=== PATIENT | male | born 1955 | race Caucasian/White ===

== ENCOUNTER → 2017-01-01 | Outpatient (CLI) | payer BC | LOC: LABWHC1 15:10 | PROVIDERS: ATTEND Internal Medicine Nephrology | DX: Z48.298 Encounter for aftercare following other organ transplant (principal); Z94.9 Transplanted organ and tissue status, unspecified; Z79.899 Other long term (current) drug therapy | CPT/HCPCS: 36415 ==

== ENCOUNTER → 2017-03-31 | Outpatient (CLI) | payer BC ==
[2017-03-31 09:35] LABS: Basophils % (A) 0 %; CH 30.5; CHCM 33.8; Eosinophils # (A) 0.2 k/uL (0-0.7); Eosinophils % (A) 2 %; HCT 43.9 % (39.0-53.0); HDW 2.66; HGB 14.7 gm/dL (13.0-17.5); Luc # (Auto) 0.23; Luc % (Auto) 3; Lymphocytes # (A) 2.5 k/uL (1.0-4.8); Lymphocytes % (A) 33 %; MCH 30.3 pg (25.0-35.0); MCHC 33.4 g/dL (31.0-37.0); MCV 90.6 fL (80.0-100.0); Mean Platelet Volume 7.7; Monocytes # (A) 0.6 k/uL (0-1.0); Monocytes % (A) 8 %; Neutrophils % (A) 54 %; RBC 4.85 m/uL (4.30-5.90); RDW 13.7 % (11.5-15.5); WBC 7.5 k/uL (3.8-10.6); WBC (Perox) 7.37
[2017-03-31 10:22] LABS: ALT 32 U/L (21-72); AST 19 U/L (17-59); Alkaline Phosphatase 79 U/L (38-126); Anion Gap 12 mmol/L; Blood Urea Nitrogen 27 mg/dL (9-20); Calcium 10.5 mg/dL (8.4-10.2); Carbon Dioxide 22 mmol/L (22-30); Chloride 106 mmol/L (98-107); Cholesterol 179 mg/dL (<200); Glucose 209 mg/dL (74-99); HDL Cholesterol 42 mg/dL (40-60); Non-African American GFR(MDRD) >60 (>60 ml/min/1.73 sqM); Potassium 4.2 mmol/L (3.5-5.1); Sodium 140 mmol/L (137-145); Total Bilirubin 0.7 mg/dL (0.2-1.3); Total Protein 6.6 g/dL (6.3-8.2); Triglycerides 394 mg/dL (<150)
[2017-03-31 11:23] LABS: Hemoglobin A1C 7.9 % (4.2-6.1)
== END | disposition home or self-care (01) ==
LOC: LABWHC1 09:05
PROVIDERS: ATTEND Internal Medicine Geriatric Medicine
DX: E11.9 Type 2 diabetes mellitus without complications (principal)
CPT/HCPCS: 36415; 80053; 80061; 80197; 83036; 85025

== ENCOUNTER → 2017-06-02 | Outpatient (CLI) | payer BC ==
[2017-06-02 09:17] LABS: Basophils % (A) 0 %; CHCM 33.4; Eosinophils # (A) 0.1 k/uL (0-0.7); Eosinophils % (A) 2 %; HCT 43.1 % (39.0-53.0); HDW 2.65; HGB 14.3 gm/dL (13.0-17.5); Luc # (Auto) 0.24; Luc % (Auto) 4; Lymphocytes # (A) 2.1 k/uL (1.0-4.8); Lymphocytes % (A) 32 %; MCHC 33.3 g/dL (31.0-37.0); MCV 93.3 fL (80.0-100.0); Mean Platelet Volume 8.5; Monocytes # (A) 0.6 k/uL (0-1.0); Monocytes % (A) 9 %; Neutrophils # (A) 3.6 k/uL (1.3-7.7); Neutrophils % (A) 53 %; RBC 4.62 m/uL (4.30-5.90); RDW 14.4 % (11.5-15.5); WBC 6.7 k/uL (3.8-10.6); WBC (Perox) 6.85
[2017-06-02 09:39] LABS: ALT 31 U/L (21-72); AST 17 U/L (17-59); Alkaline Phosphatase 69 U/L (38-126); Anion Gap 9 mmol/L; Blood Urea Nitrogen 25 mg/dL (9-20); Calcium 9.9 mg/dL (8.4-10.2); Carbon Dioxide 24 mmol/L (22-30); Chloride 106 mmol/L (98-107); Cholesterol 153 mg/dL (<200); Glucose 225 mg/dL (74-99); HDL Cholesterol 36 mg/dL (40-60); Non-African American GFR(MDRD) >60 (>60 ml/min/1.73 sqM); Potassium 4.4 mmol/L (3.5-5.1); Sodium 139 mmol/L (137-145); Total Bilirubin 0.5 mg/dL (0.2-1.3); Total Protein 6.2 g/dL (6.3-8.2)
[2017-06-02 12:20] LABS: Hemoglobin A1C 8.3 % (4.2-6.1)
== END | disposition home or self-care (01) ==
LOC: LABWHC1 08:49
PROVIDERS: ATTEND Internal Medicine Geriatric Medicine
DX: E11.9 Type 2 diabetes mellitus without complications (principal); I10 Essential (primary) hypertension; E78.00 Pure hypercholesterolemia, unspecified
CPT/HCPCS: 36415; 80053; 80061; 83036; 84439; 84443; 85025

== ENCOUNTER → 2017-12-30 | Outpatient (CLI) | payer BC ==
[2017-12-30 11:58] LABS: Basophils % (A) 0 %; Eosinophils # (A) 0.1 k/uL (0-0.7); Eosinophils % (A) 1 %; HCT 40.4 % (39.0-53.0); HGB 13.1 gm/dL (13.0-17.5); Lymphocytes # (A) 1.9 k/uL (1.0-4.8); Lymphocytes % (A) 22 %; MCH 29.1 pg (25.0-35.0); MCHC 32.5 g/dL (31.0-37.0); MCV 89.4 fL (80.0-100.0); Mean Platelet Volume 7.7; Monocytes # (A) 0.6 k/uL (0-1.0); Monocytes % (A) 7 %; Neutrophils # (A) 5.6 k/uL (1.3-7.7); Neutrophils % (A) 67 %; Platelet Count 184 k/uL (150-450); RBC 4.52 m/uL (4.30-5.90); RDW 13.8 % (11.5-15.5); WBC 8.3 k/uL (3.8-10.6)
[2017-12-30 12:19] LABS: Albumin 3.8 g/dL (3.5-5.0); Calcium 10.8 mg/dL (8.4-10.2); Potassium 4.8 mmol/L (3.5-5.1); Total Bilirubin 0.5 mg/dL (0.2-1.3); Total Protein 6.3 g/dL (6.3-8.2)
[2017-12-30 12:27] LABS: T4, Free (Free Thyroxine) 1.02 ng/dL (0.78-2.19)
[2017-12-30 12:41] LABS: Prostate Specific Antigen 0.4 ng/mL (0.00-4.00)
[2017-12-30 18:48] LABS: Hemoglobin A1C 7.8 % (4.0-6.0)
== END | disposition home or self-care (01) ==
LOC: LABWHC1 11:31
PROVIDERS: ATTEND Internal Medicine Geriatric Medicine
DX: I10 Essential (primary) hypertension (principal); E11.9 Type 2 diabetes mellitus without complications; E78.00 Pure hypercholesterolemia, unspecified; Z12.5 Encounter for screening for malignant neoplasm of prostate
CPT/HCPCS: 36415; 80053; 80061; 82043; 82570; 83036; 84153; 84439; 84443; 85025

== ENCOUNTER → 2018-05-02 | Outpatient (CLI) | payer BC ==
[2018-05-02 15:41] LABS: Basophils % (A) 0 %; Eosinophils # (A) 0.1 k/uL (0-0.7); Eosinophils % (A) 2 %; HCT 39.5 % (39.0-53.0); HGB 12.6 gm/dL (13.0-17.5); Lymphocytes # (A) 2.2 k/uL (1.0-4.8); Lymphocytes % (A) 29 %; MCH 28.5 pg (25.0-35.0); MCV 89.1 fL (80.0-100.0); Mean Platelet Volume 7.7; Monocytes # (A) 0.6 k/uL (0-1.0); Monocytes % (A) 8 %; Neutrophils # (A) 4.2 k/uL (1.3-7.7); Neutrophils % (A) 58 %; Platelet Count 170 k/uL (150-450); RBC 4.43 m/uL (4.30-5.90); RDW 13.4 % (11.5-15.5); WBC 7.3 k/uL (3.8-10.6)
[2018-05-02 15:50] LABS: Calcium 10.5 mg/dL (8.4-10.2); Potassium 4.5 mmol/L (3.5-5.1); Total Bilirubin 0.4 mg/dL (0.2-1.3); Total Protein 6.3 g/dL (6.3-8.2)
[2018-05-02 16:06] LABS: T4, Free (Free Thyroxine) 1.01 ng/dL (0.78-2.19)
[2018-05-02 17:36] LABS: Prostate Specific Antigen 0.4 ng/mL (0.00-4.00)
[2018-05-03 04:28] LABS: Hemoglobin A1C 7.5 % (4.0-6.0)
== END | disposition home or self-care (01) ==
LOC: LABWHC1 14:42
PROVIDERS: ATTEND Internal Medicine Geriatric Medicine
DX: E11.22 Type 2 diabetes mellitus with diabetic chronic kidney disease (principal); N18.9 Chronic kidney disease, unspecified; I25.10 Atherosclerotic heart disease of native coronary artery without angina pectoris; N40.0 Benign prostatic hyperplasia without lower urinary tract symptoms
CPT/HCPCS: 36415; 80053; 83036; 84153; 84439; 84443; 85025

== ENCOUNTER → 2018-08-15 | Outpatient (CLI) | payer BC ==
[2018-08-15 16:12] LABS: Appearance,Urine Clear (Clear); Basophils % (A) 0 %; Bilirubin,Urine Negative (Negative); Blood,Urine Negative (Negative); Color,Urine Yellow; Eosinophils # (A) 0.2 k/uL (0-0.7); Eosinophils % (A) 2 %; Glucose,Urine (UA) 2+ (Negative); HCT 41.4 % (39.0-53.0); HGB 13.3 gm/dL (13.0-17.5); Ketones,Urine Negative (Negative); Leukocyte Esterase,Urine Negative (Negative); Lymphocytes % (A) 27 %; MCH 29.2 pg (25.0-35.0); MCHC 32.2 g/dL (31.0-37.0); MCV 90.6 fL (80.0-100.0); Mean Platelet Volume 7.6; Monocytes # (A) 0.6 k/uL (0-1.0); Monocytes % (A) 8 %; Neutrophils # (A) 4.3 k/uL (1.3-7.7); Neutrophils % (A) 59 %; Nitrite,Urine Negative (Negative); PH, Urine 5.5 (5.0-8.0); Platelet Count 213 k/uL (150-450); Protein,Urine Negative (Negative); RBC 4.57 m/uL (4.30-5.90); RDW 13.4 % (11.5-15.5); Specific Gravity,Urine 1.019 (1.001-1.035); Urobilinogen,Urine <2.0 mg/dL (<2.0); WBC 7.2 k/uL (3.8-10.6)
[2018-08-16 05:21] LABS: Total Protein,Urine Random 15.7 mg/dL (0.0-13.5)
[2018-08-16 08:24] LABS: Vitamin D 25 Hydroxy 18.7 ng/mL (30.0-100.0)
[2018-08-16 08:25] LABS: Albumin 4.1 g/dL (3.80-4.90); Albumin/Globulin Ratio 2.56 (1.20-2.10); Anion Gap 6.4 mmol/L (4.00-12.00); Carbon Dioxide 23.6 mmol/L (21.6-31.8); Creatinine,Urine Random 166.3 mg/dL; Globulin 1.6 g/dL (2.1-3.7); LDL Cholesterol,Calculated 49.6 mg/dL (0.0-131.0); Magnesium 1.7 mg/dL (1.5-2.4); Parathyroid Hormone Intact 75.6 pg/mL (14.0-72.0); Phosphorus 2.4 mg/dL (2.4-5.1); Potassium 4.9 mmol/L (3.5-5.5); Total Bilirubin 0.4 mg/dL (0.3-1.2); Total Protein 5.7 g/dL (6.2-8.2); VLDL Calculation 52.4 mg/dL (5.00-40.00)
== END | disposition home or self-care (01) ==
LOC: LABWHC1 14:51
PROVIDERS: ATTEND Nurse Practitioner
DX: Z51.81 Encounter for therapeutic drug level monitoring (principal); Z79.899 Other long term (current) drug therapy; Z94.0 Kidney transplant status; Z48.298 Encounter for aftercare following other organ transplant
CPT/HCPCS: 36415; 80053; 80061; 80197; 81003; 82306; 82570; 82977; 83735; 83970; 84100; 84156; 84550; 85025

== ENCOUNTER → 2019-01-03 | Outpatient (CLI) | payer OTHER ==
[2019-01-03 15:24] LABS: Basophils % (A) 0 %; Eosinophils # (A) 0.2 k/uL (0-0.7); Eosinophils % (A) 2 %; HCT 41.4 % (39.0-53.0); HGB 13.1 gm/dL (13.0-17.5); Lymphocytes # (A) 2.1 k/uL (1.0-4.8); Lymphocytes % (A) 29 %; MCH 28.4 pg (25.0-35.0); MCHC 31.7 g/dL (31.0-37.0); MCV 89.6 fL (80.0-100.0); Mean Platelet Volume 7.5; Monocytes # (A) 0.6 k/uL (0-1.0); Monocytes % (A) 8 %; Neutrophils # (A) 4.2 k/uL (1.3-7.7); Neutrophils % (A) 57 %; Platelet Count 201 k/uL (150-450); RBC 4.62 m/uL (4.30-5.90); RDW 13.8 % (11.5-15.5); WBC 7.3 k/uL (3.8-10.6)
[2019-01-03 19:32] LABS: Albumin 4.2 g/dL (3.80-4.90); Albumin/Globulin Ratio 2.47 (1.60-3.17); Calcium 10.4 mg/dL (8.7-10.3); Globulin 1.7 g/dL (1.6-3.3); Potassium 4.4 mmol/L (3.5-5.5); Total Bilirubin 0.5 mg/dL (0.3-1.2); Total Protein 5.9 g/dL (6.2-8.2)
[2019-01-03 19:39] LABS: T4, Free (Free Thyroxine) 1.1 ng/dL (0.80-1.80)
== END ==
LOC: LABWHC1 14:18
PROVIDERS: ATTEND Nurse Practitioner
DX: Z00.00 Encounter for general adult medical examination without abnormal findings (principal); I10 Essential (primary) hypertension; E11.42 Type 2 diabetes mellitus with diabetic polyneuropathy; E03.9 Hypothyroidism, unspecified; I15.9 Secondary hypertension, unspecified; Z79.899 Other long term (current) drug therapy; Z94.0 Kidney transplant status
CPT/HCPCS: 36415; 80053; 82043; 82088; 82570; 83036; 84244; 84439; 84443; 85025

== ENCOUNTER → 2019-01-06 | Outpatient (CLI) | payer OTHER ==
--- NOTE | 2019-01-09 09:05 | BD ---
EXAMINATION TYPE: Axial Bone Density DATE OF EXAM: 01/06/2019 COMPARISON: 10/25/2015 CLINICAL HISTORY: Long-term immunosuppressive drug use Height: 67.7 IN Weight: 210 LBS FRAX RISK QUESTIONS: Glucocorticoids (More than 3mos): PREDNISONE SINCE JUL 15, 2013. PT TAKES O.5 MG/PER DAY (Ex: prednisone, prednisolone, methylprednisolone, dexamethasone, and hydrocortisone). Secondary Osteoporosis: 1. Type 1 Diabetes: YES Current Tobacco Use: OCCASIONAL RISK FACTORS HISTORY OF: Active: YES Diet low in dairy products/other sources of calcium: YES MEDICATIONS: Prednisone or other steroids: YES 0.5 MG PER DAY SINCE JUL 2013 Additional Medications: PREDNISONE, MENS 50 +VIT,HIGH BLOOD PRESSURE MEDS, INSULIN, CHOLESTEROL MEDS, PLAVIX, FLOMAX, ANTI REJECTION MEDS EXAM MEASUREMENTS: Bone mineral densitometry was performed using the [employer]. Bone mineral density as measured about the Lumbar spine is: ----- L1-L4(G/cm2): 1.334 T Score Values are as follows: ----- L2: 1.7 ----- L3: 1.9 ----- L4: 0.0 ----- L1-L4: 1.3 Bone mineral density has: Increased 11.3% since study of: 10/25/2015 Bone mineral density about the R hip (g/cm2): 0.835 Bone mineral density about the L hip (g/cm2): 0.914 T Score values are as follows: -----R Neck: -1.5 -----L Neck: -0.9 -----R Total: -0.7 -----L Total: -0.3 Bone mineral density has: Decreased -4.8% since study of: 10/25/2015 IMPRESSION: Osteopenia (T Score between -2.5 and -1). There is slightly increased risk of fracture and the patient may be considered for treatment. Re-Screen 2-5 years. NOTE: T-SCORE=SD OF THE YOUNG ADULT MEAN.
== END ==
LOC: RADBDWWP 12:49
PROVIDERS: ATTEND Nurse Practitioner
DX: Z48.22 Encounter for aftercare following kidney transplant (principal); M85.80 Other specified disorders of bone density and structure, unspecified site; Z94.0 Kidney transplant status; Z79.899 Other long term (current) drug therapy
CPT/HCPCS: 77080

== ENCOUNTER → 2019-05-01 | Outpatient (CLI) | payer OTHER ==
[2019-05-01 19:09] LABS: African American GFR (CKD) 67.8 (60.0-200.0); Albumin/Globulin Ratio 2.5 (1.60-3.17); Anion Gap 7.7 mmol/L (4.00-12.00); BUN/Creat Ratio 22.31 Ratio (12.00-20.00); Calcium 10.4 mg/dL (8.7-10.3); Carbon Dioxide 21.3 mmol/L (21.6-31.8); Globulin 1.6 g/dL (1.6-3.3); LDL Cholesterol,Calculated 28.8 mg/dL (0.0-131.0); Potassium 4.3 mmol/L (3.5-5.5); Total Bilirubin 0.4 mg/dL (0.2-1.2); Total Protein 5.6 g/dL (6.2-8.2); VLDL Calculation 68.2 mg/dL (5.00-40.00)
[2019-05-01 19:17] LABS: T4, Free (Free Thyroxine) 1.1 ng/dL (0.80-1.80)
[2019-05-01 22:37] LABS: Hemoglobin A1C 7.2 % (4.0-6.0)
== END | disposition home or self-care (01) ==
LOC: LABWHC1 13:49
PROVIDERS: ATTEND Internal Medicine
DX: E11.65 Type 2 diabetes mellitus with hyperglycemia (principal); E78.2 Mixed hyperlipidemia
CPT/HCPCS: 36415; 80053; 80061; 82043; 82570; 83036; 84439; 84443

== ENCOUNTER 2019-07-11 20:19 | Observation (INO) | payer OTHER ==
[2019-07-11] MEDS ORDERED: SODIUM CHLORIDE 0.9% 500 ML 500 ML IV STA (20:43)
[2019-07-11 20:57] LABS: Glucose,Whole Blood 162 mg/dL (75-99)
[2019-07-11 21:06] LABS: Basophils % (A) 0 %; Eosinophils # (A) 0.1 k/uL (0-0.7); Eosinophils % (A) 1 %; HCT 40.7 % (39.0-53.0); HGB 13.1 gm/dL (13.0-17.5); Lymphocytes # (A) 2.4 k/uL (1.0-4.8); Lymphocytes % (A) 29 %; MCH 29.8 pg (25.0-35.0); MCHC 32.1 g/dL (31.0-37.0); MCV 92.6 fL (80.0-100.0); Mean Platelet Volume 6.7; Monocytes # (A) 0.6 k/uL (0-1.0); Monocytes % (A) 7 %; Neutrophils % (A) 60 %; Platelet Count 201 k/uL (150-450); RBC 4.39 m/uL (4.30-5.90); RDW 13.4 % (11.5-15.5); WBC 8.4 k/uL (3.8-10.6)
[2019-07-11 21:12] LABS: Albumin 4.3 g/dL (3.5-5.0); Calcium 10.7 mg/dL (8.4-10.2); Potassium 4.7 mmol/L (3.5-5.1); Total Bilirubin 0.4 mg/dL (0.2-1.3); Total Protein 6.9 g/dL (6.3-8.2)
--- NOTE | 2019-07-11 21:15 | CT ---
EXAMINATION TYPE: CT brain wo con for TPA DATE OF EXAM: 07/11/2019 COMPARISON: 01/08/2016 HISTORY: Neuro deficits. CT DLP: 1212.4 mGycm Automated exposure control for dose reduction was used. FINDINGS: There is hypodensity in the lateral right temporal lobe consistent with old infarct. There is no mass effect nor midline shift. There is no sign of intracranial hemorrhage. The calvarium is intact. 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 No acute intracranial abnormality. No change.
--- NOTE | 2019-07-11 21:16 | ED ---
Weakness HPI - General Chief complaint: Weakness Stated complaint: right side weakness/trouble standing Time Seen by Provider: 07/11/19 20:43 Source: patient, RN notes reviewed Mode of arrival: ambulatory Limitations: no limitations - History of Present Illness Initial comments: This is a 63-year-old male history of renal transplant who states he had the onset around 745 bpm of right upper and lower extremity weakness. He also thinks he has some difficulty with speech. He does feel as if it's gaping improved he has no prior history of strokes no palpitations chest pain headache fevers chills nausea vomiting sweats or other symptoms he states he was having drink when this occurred. He states he does feel as if his hearing better now. He knows he is dominant right-handed and he had trouble keeping his hand up on a counter. No other modifying factors at this time MD Complaint: focal weakness - Related Data Home Medications Medication Instructions Recorded Confirmed Allopurinol [Zyloprim] 100 mg PO DAILY 07/11/19 07/11/19 Atorvastatin [Lipitor] 40 mg PO DAILY 07/11/19 07/11/19 Clopidogrel [Plavix] 75 mg PO DAILY 07/11/19 07/11/19 INSULIN LISPRO (HumaLOG) [HumaLOG] 20 unit SQ AC-BID 07/11/19 07/11/19 INSULIN LISPRO (HumaLOG) [HumaLOG] 25 unit SQ AC-SUPPER 07/11/19 07/11/19 INSULIN LISPRO (HumaLOG) [HumaLOG] See Protocol SQ AC-TID 07/11/19 07/11/19 Lisinopril [Zestril] 10 mg PO DAILY 07/11/19 07/11/19 Metoprolol Tartrate [Lopressor] 50 mg PO TID 07/11/19 07/11/19 Mycophenolate Sodium [Mycophenolic 720 mg PO BID 07/11/19 07/11/19 Acid] Paricalcitol 1 mcg PO DAILY 07/11/19 07/11/19 Pioglitazone HCl 15 mg PO DAILY 07/11/19 07/11/19 Tacrolimus [Prograf] 1 mg PO HS 07/11/19 07/11/19 Tacrolimus [Prograf] 2 mg PO QAM 07/11/19 07/11/19 Tamsulosin HCl [Flomax] 0.4 mg PO DAILY 07/11/19 07/11/19 amLODIPine BESYLATE 10 mg PO DAILY 07/11/19 07/11/19 hydrALAZINE HCL [Apresoline] 50 mg PO BID 07/11/19 07/11/19 metFORMIN HCL ER [Glucophage Xr] 500 mg PO DAILY 07/11/19 07/11/19 predniSONE 5 mg PO DAILY 07/11/19 07/11/19 Allergies Allergy/AdvReac Type Severity Reaction Status Date / Time No Known Allergies Allergy Verified 07/11/19 21:37 Review of Systems ROS Statement: Those systems with pertinent positive or pertinent negative responses have been documented in the HPI. ROS Other: All systems not noted in ROS Statement are negative. Past Medical History Past Medical History: CVA/TIA, Diabetes Mellitus, Hyperlipidemia, Hypertension Additional Past Medical History / Comment(s): kidney transplant History of Any Multi-Drug Resistant Organisms: None Reported Additional Past Surgical History / Comment(s): kidney transplant Past Psychological History: No Psychological Hx Reported Smoking Status: Current some day smoker Past Alcohol Use History: Occasional Past Drug Use History: None Reported General Exam - General Exam Comments Initial Comments: Is a well-developed well-nourished awake alert oriented 3 male Limitations: no limitations General appearance: alert, anxious Head exam: Present: atraumatic, normocephalic, normal inspection Eye exam: Present: normal appearance, PERRL, EOMI. Absent: scleral icterus, conjunctival injection, periorbital swelling ENT exam: Present: normal exam, mucous membranes moist Neck exam: Present: normal inspection. Absent: tenderness, meningismus, ly mphadenopathy Respiratory exam: Present: normal lung sounds bilaterally. Absent: respiratory distress, wheezes, rales, rhonchi, stridor Cardiovascular Exam: Present: regular rate, normal rhythm, normal heart sounds. Absent: systolic murmur, diastolic murmur, rubs, gallop, clicks GI/Abdominal exam: Present: soft, normal bowel sounds. Absent: distended, tenderness, guarding, rebound, rigid Extremities exam: Present: normal inspection, full ROM, normal capillary refill. Absent: tenderness, pedal edema, joint swelling, calf tenderness Back exam: Present: normal inspection Neurological exam: Present: alert, oriented X3, CN II-XII intact, motor sensory deficit (Slight weakness to imcu nurse and push pull the upper extremity and a right he was noted be able ambulate in my presence) Psychiatric exam: Present: normal affect, normal mood Skin exam: Present: warm, dry, intact, normal color. Absent: rash Course Vital Signs 07/11/19 07/11/19 20:27 22:35 Temperature 98.0 F Pulse Rate 70 68 Respiratory 20 18 Rate Blood Pressure 150/69 170/81 O2 Sat by Pulse 95 98 Oximetry - Reevaluation(s) Reevaluation #1: 07/11/19 21:16 During my exam the patient did voice that he felt as if the symptoms are all improving. He has more movement and strength and did upon initial onset. Reevaluation #2: 07/11/19 21:17 I did discuss with the patient the concept of IV contrast he would prefer not to do that in light of the fact that he is a kidney transplant recipient. EKG Findings - EKG Results: EKG: interpreted by LIBAN, sinus rhythm (Sinus rhythm a 66. Interval 140 QRS duration 94 QT since QTC 376/394 LVH) Medical Decision Making - Medical Decision Making I did reevaluate patient on several occasions he got: Improvement in his findings. The presentation is consistent with a TIA. I did discuss findings the patient's was present. I also discussed case with Dr. Finley. Patient be admitted consultation by neurology echocardiogram carotid duplex scan. Patient does demonstrate elevated kidney function tests contrast will be withheld at this time - Lab Data Result diagrams: 07/11/19 20:54 07/11/19 20:54 Lab Results 07/11/19 07/11/19 07/11/19 Range/Units 20:53 20:54 20:54 WBC 8.4 (3.8-10.6) k/uL RBC 4.39 (4.30-5.90) m/uL Hgb 13.1 (13.0-17.5) gm/dL Hct 40.7 (39.0-53.0) % MCV 92.6 (80.0-100.0) fL MCH 29.8 (25.0-35.0) pg MCHC 32.1 (31.0-37.0) g/dL RDW 13.4 (11.5-15.5) % Plt Count 201 (150-450) k/uL Neutrophils % 60 % Lymphocytes % 29 % Monocytes % 7 % Eosinophils % 1 % Basophils % 0 % Neutrophils # 5.0 (1.3-7.7) k/uL Lymphocytes # 2.4 (1.0-4.8) k/uL Monocytes # 0.6 (0-1.0) k/uL Eosinophils # 0.1 (0-0.7) k/uL Basophils # 0.0 (0-0.2) k/uL PT (9.0-12.0) sec INR (<1.2) APTT (22.0-30.0) sec Sodium 136 L (137-145) mmol/L Potassium 4.7 (3.5-5.1) mmol/L Chloride 105 (98-107) mmol/L Carbon Dioxide 19 L (22-30) mmol/L Anion Gap 12 mmol/L BUN 32 H (9-20) mg/dL Creatinine 1.43 H (0.66-1.25) mg/dL Est GFR (CKD-EPI)AfAm 61 (>60 ml/min/1.73 sqM) Est GFR (CKD-EPI)NonAf 52 (>60 ml/min/1.73 sqM) Glucose 155 H (74-99) mg/dL POC Glucose (mg/dL) 162 H (75-99) mg/dL POC Glu V[employer] T[employer] Machine Offbearer ID Paul, Radha Calcium 10.7 H (8.4-10.2) mg/dL Total Bilirubin 0.4 (0.2-1.3) mg/dL AST 17 (17-59) U/L ALT 29 (21-72) U/L Alkaline Phosphatase 56 (38-126) U/L Creatine Kinase 77 (55-170) U/L Troponin I (0.000-0.034) ng/mL Total Protein 6.9 (6.3-8.2) g/dL Albumin 4.3 (3.5-5.0) g/dL 07/11/19 07/11/19 Range/Units 20:54 20:54 WBC (3.8-10.6) k/uL RBC (4.30-5.90) m/uL Hgb (13.0-17.5) gm/dL Hct (39.0-53.0) % MCV (80.0-100.0) fL MCH (25.0-35.0) pg MCHC (31.0-37.0) g/dL RDW (11.5-15.5) % Plt Count (150-450) k/uL Neutrophils % % Lymphocytes % % Monocytes % % Eosinophils % % Basophils % % Neutrophils # (1.3-7.7) k/uL Lymphocytes # (1.0-4.8) k/uL Monocytes # (0-1.0) k/uL Eosinophils # (0-0.7) k/uL Basophils # (0-0.2) k/uL PT 9.8 (9.0-12.0) sec INR 0.9 (<1.2) APTT 23.6 (22.0-30.0) sec Sodium (137-145) mmol/L Potassium (3.5-5.1) mmol/L Chloride (98-107) mmol/L Carbon Dioxide (22-30) mmol/L Anion Gap mmol/L BUN (9-20) mg/dL Creatinine (0.66-1.25) mg/dL Est GFR (CKD-EPI)AfAm (>60 ml/min/1.73 sqM) Est GFR (CKD-EPI)NonAf (>60 ml/min/1.73 sqM) Glucose (74-99) mg/dL POC Glucose (mg/dL) (75-99) mg/dL POC Glu [employer] Machine Offbearer ID Calcium (8.4-10.2) mg/dL Total Bilirubin (0.2-1.3) mg/dL AST (17-59) U/L ALT (21-72) U/L Alkaline Phosphatase (38-126) U/L Creatine Kinase (55-170) U/L Troponin I 0.024 (0.000-0.034) ng/mL Total Protein (6.3-8.2) g/dL Albumin (3.5-5.0) g/dL - Radiology Data Radiology results: report reviewed (I did review the imaging and report of x-ray unremarkable CAT scan does show evidence of an old infarct no acute findings please see the complete report), image reviewed Disposition Clinical Impression: Transient ischemic attack (TIA), History of kidney transplant, Renal insufficiency Disposition: ADMITTED IP TO THIS [facility] Condition: Stable Referrals: Mario Finley MD [Primary Care Provider] - 1-2 days
--- NOTE | 2019-07-11 21:16 | XR ---
EXAMINATION TYPE: XR chest 2V DATE OF EXAM: 07/11/2019 COMPARISON: 01/08/2016 HISTORY: Weakness TECHNIQUE: Frontal and lateral views of the chest are obtained. FINDINGS: There is no heart failure nor confluent pneumonic infiltrate. Costophrenic angles are miky r. Bony thorax is intact. There are chest leads. IMPRESSION: Normal chest. No change.
[2019-07-11 21:28] LABS: INR 0.9 (<1.2); Partial Thromboplastin Time 23.6 sec (22.0-30.0); Prothrombin Time 9.8 sec (9.0-12.0)
[2019-07-11 22:36] VITALS: RESP 18
[2019-07-11] MEDS ORDERED: SODIUM CHLORIDE 0.9% 1,000 ML IV SCH (23:15)
[2019-07-12 00:30] LABS: Glucose,Whole Blood 227 mg/dL (75-99)
[2019-07-12] MEDS ORDERED: TACROLIMUS 1 MG CAP PO SCH ×3 (01:00→21:00)
[2019-07-12] MEDS ORDERED: INSULIN ASPART (NovoLOG) 100 UNIT/ML VIAL SQ SCH ×2 (01:15→17:30)
[2019-07-12] MEDS: MYCOPHENOLATE SODIUM DR 180 MG TABLET.DR PO SCH ×2 (01:19→09:17)
[2019-07-12] MEDS: hydrALAZINE HCL 50 MG TAB PO SCH ×2 (01:19→12:21)
[2019-07-12] MEDS: METOPROLOL TARTRATE 50 MG TAB PO SCH ×3 (01:19→17:22)
[2019-07-12] MEDS: INSULIN ASPART (NovoLOG) 100 UNIT/ML VIAL SQ SCH ×5 (01:20→13:16)
[2019-07-12 03:18] LABS: Cholesterol 125 mg/dL (<200); HDL Cholesterol 40 mg/dL (40-60); LDL Cholesterol,Calculated 40 mg/dL (0-99); Triglycerides 226 mg/dL (<150)
[2019-07-12 06:19] LABS: Glucose,Whole Blood 87 mg/dL (75-99)
--- NOTE | 2019-07-12 08:02 | US ---
EXAMINATION TYPE: US carotid duplex BILAT DATE OF EXAM: 07/12/2019 COMPARISON: NONE CLINICAL HISTORY: Stenosis. TIA EXAM MEASUREMENTS: RIGHT: Peak Systolic Velocity (PSV) cm/sec ----- Right CCA: 67.7 ----- Right ICA: 78.1 ----- Right ECA: 197.6 ICA/CCA ratio: 1.2 RIGHT: End Diastole cm/sec ----- Right CCA: 12.9 ----- Right ICA: 14.2 ----- Right ECA: 0 LEFT: Peak Systolic Velocity (PSV) cm/sec ----- Left CCA: 100.0 ----- Left ICA: 82.2 ----- Left ECA: 82.2 ICA/CCA ratio: 0.8 LEFT: End Diastole cm/sec ----- Left CCA: 17.6 ----- Left ICA: 20.8 ----- Left ECA: 0 VERTEBRALS (direction of flow): Right Vertebral: Antegrade Left Vertebral: Antegrade Rhythm: Bilateral plaque visualized. Right ECA elevated velocities. No significant stenosis seen. IMPRESSION: Mild degree of grayscale atheromatous plaquing with no sonographically evident hemodynam ically significant stenosis within either visualized common carotid or internal carotid artery. Criteria for Assigning % of Stenosis / Diameter reduction (Estimation based on the indirect measurements of the internal carotid artery velocities (ICA PSV). 1. Normal (no stenosis)=ICA PSV < 125 cm/s: ratio < 2.0: ICA EDV<40 cm/s. 2. Less than 50% stenosis=ICA PSV < 125 cm/s: ratio < 2.0: ICA EDV<40 cm/s. 3. 50 to 69% stenosis=ICA PSV of 125 to 230 cm/s: ration 2.0 ? 4.0: ICA EDV 40-100 cm/s. 4. Greater than 70% stenosis to near occlusion= ICA PSV > 230 cm/s: ratio > 4.0: ICA EDV > 100 cm/s. 5. Near occlusion= ICA PSV velocities may be low or undetectable: variable ratio and ICA EDV. 6. Total occlusion=unable to detect flow.
[2019-07-12] MEDS ORDERED: metFORMIN 500 MG TAB PO SCH (09:00)
[2019-07-12] MEDS ORDERED: METOPROLOL TARTRATE 50 MG TAB PO SCH (09:00)
[2019-07-12] MEDS ORDERED: TAMSULOSIN 0.4 MG CAP.ER.24H PO SCH (09:00)
[2019-07-12] MEDS ORDERED: PARICALCITOL 1 MCG PO SCH (09:00)
[2019-07-12] MEDS ORDERED: ATORVASTATIN 40 MG TAB PO SCH (09:00)
[2019-07-12] MEDS ORDERED: amLODIPine 10 MG TAB PO SCH (09:00)
[2019-07-12] MEDS ORDERED: hydrALAZINE HCL 50 MG TAB PO SCH (09:00)
[2019-07-12] MEDS ORDERED: PIOGLITAZONE 15 MG TAB PO SCH (09:00)
[2019-07-12] MEDS ORDERED: predniSONE 5 MG TAB PO SCH (09:00)
[2019-07-12] MEDS ORDERED: CLOPIDOGREL 75 MG TAB PO SCH (09:00)
[2019-07-12] MEDS ORDERED: MYCOPHENOLATE SODIUM DR 180 MG TABLET.DR PO SCH (09:00)
[2019-07-12] MEDS ORDERED: LISINOPRIL 10 MG TAB PO SCH (09:00)
[2019-07-12] MEDS ORDERED: ALLOPURINOL 100 MG TAB PO SCH (09:00)
[2019-07-12 09:32] VITALS: TEMP 98.4
[2019-07-12 12:22] LABS: Glucose,Whole Blood 129 mg/dL (75-99)
--- NOTE | 2019-07-12 12:33 | P.HPIM ---
History of Present Illness H&P Date: 07/12/19 Chief Complaint: TIA, CVA with slurred speech, dysphagia and right-sided [place]is, post katlyn 63-year-old male one of my office patient of known for long time with history of type 2 diabetes on insulin, history of CVA in the past, post renal transplant at the [facility] [place] over 5 years ago still been doing well. Patient worked in [employer] regularly apparently he didn't feel good all day and the bleeding in the evening and end up in the bowling alley with his friend had 1 beer at the time when he noticed he is having more slurred speech and significant expression aphasia not been able to lift his elbow and right upper extremity above the table and struggling with weakness on the right lower leg as well. He ended up asking one of his friend to drive him to [employer] department at [facility] where was seen and evaluated his speech was ba ck to normal his right side is much better at the time. CAT scan of the brain did not show any major abnormality. With his previous history of stroke on the very high risk of this point patient was admitted to the hospital continue neuro exam every 2 hours plan for an MRI of the brain, not able to do CT of the neck because of his kidney function and transplant patient will be going for carotid ultrasound and will be evaluated by neurology if his symptoms are better in the next 24 hours can be discharged. Review of Systems CONSTITUTIONAL: Well-developed no acute respiratory distress. EYES: No icterus sclerae, no conjunctivitis. EARS, NOSE, MOUTH, THROAT, and FACE: No sore throat, lymphadenopathy, carotid bruits or deformity. RESPIRATORY: No SOB cough or wheezes. CARDIOVASCULAR: No CP, Palpitation, PND, Orthopnea, or angina. GASTROINTESTINAL: No Abd pain, Nausea or vomiting, no Diarrhea or constipation, No GI Bleed, no distention or masses. GENITOURINARY: Post renal transplant still making good urine output with improvement in kidney function. INTEGUMENT/BREAST: Negative for any muscular injury with mild osteoarthritis.. HEMATOLOGIC/LYMPHATIC: Negative for bleed or purpura. MUSCULOSKELTAL: Negative for Myalgia or arthralgia. NEURLOGICAL: No LOC, Sz or syncope, blurred vision dizziness or abnormality.. BEHAVIORAL/PSYCH: Negative. ENDOCRINE: Negative. Past Medical History Past Medical History: CVA/TIA, Diabetes Mellitus, Hyperlipidemia, Hypertension Additional Past Medical History / Comment(s): kidney transplant; stroke at 42 years old History of Any Multi-Drug Resistant Organisms: None Reported Additional Past Surgical History / Comment(s): kidney transplant Past Psychological History: No Psychological Hx Reported Smoking Status: Current every day smoker Past Alcohol Use History: Occasional Past Drug Use History: None Reported Additional Drug Use History / Comment(s): pt smokes when drinks...may have 5 cigarettes a day Medications and Allergies Home Medications Medication Instructions Recorded Confirmed Type Allopurinol [Zyloprim] 100 mg PO DAILY 07/11/19 07/11/19 History Atorvastatin [Lipitor] 40 mg PO DAILY 07/11/19 07/11/19 History Clopidogrel [Plavix] 75 mg PO DAILY 07/11/19 07/11/19 History INSULIN LISPRO (HumaLOG) [HumaLOG] 20 unit SQ AC-BID 07/11/19 07/11/19 History INSULIN LISPRO (HumaLOG) [HumaLOG] 25 unit SQ AC-SUPPER 07/11/19 07/11/19 History INSULIN LISPRO (HumaLOG) [HumaLOG] See Protocol SQ AC-TID 07/11/19 07/11/19 History Lisinopril [Zestril] 10 mg PO DAILY 07/11/19 07/11/19 History Metoprolol Tartrate [Lopressor] 50 mg PO TID 07/11/19 07/11/19 History Mycophenolate Sodium [Mycophenolic 720 mg PO BID 07/11/19 07/11/19 History Acid] Paricalcitol 1 mcg PO DAILY 07/11/19 07/11/19 History Pioglitazone HCl 15 mg PO DAILY 07/11/19 07/11/19 History Tacrolimus [Prograf] 1 mg PO HS 07/11/19 07/11/19 History Tacrolimus [Prograf] 2 mg PO QAM 07/11/19 07/11/19 History Tamsulosin HCl [Flomax] 0.4 mg PO DAILY 07/11/19 07/11/19 History amLODIPine BESYLATE 10 mg PO DAILY 07/11/19 07/11/19 History hydrALAZINE HCL [Apresoline] 50 mg PO BID 07/11/19 07/11/19 History metFORMIN HCL ER [Glucophage Xr] 500 mg PO DAILY 07/11/19 07/11/19 History predniSONE 5 mg PO DAILY 07/11/19 07/11/19 History Allergies Allergy/AdvReac Type Severity Reaction Status Date / Time No Known Allergies Allergy Verified 07/11/19 21:37 Physical Exam Vitals: Vital Signs Temp Pulse Pulse Resp BP BP Pulse Ox 07/12/19 09:28 98.4 F 73 16 124/57 94 L 07/12/19 04:27 71 18 140/63 97 07/12/19 01:10 97.7 F 68 18 163/102 94 L 07/11/19 23:59 98.3 F 82 18 168/70 98 07/11/19 22:35 68 18 170/81 98 07/11/19 20:27 98.0 F 70 20 150/69 95 Intake and Output 07/11/19 07/12/19 07/12/19 22:59 06:59 14:59 Intake Total 240 Balance 240 Intake: Oral 240 Other: # Voids 1 1 Weight 93.44 kg 93.2 kg General Appearance: Alert, cooperative, no distress, appears stated age. Overweight Neck HEENT: Supple, no lymphadenopathy, no thyroid enlargement, no carotid bruits. Lungs: Clear to auscultation without crackles or wheezes no rhonchi, no deformity. Chest Wall: Chest wall normal expansion with deep inspiration no tenderness and no deformity was found on exam, no costochondral pain or discomfort. Heart: Regular rate and rhythm, S1, S2 normal, no murmur, rub or gallop. Back: Symmetric, no curvature, ROM normal, no CVA tenderness. Abdomen: Soft, non-tender, bowel sounds active all four quadrants, no masses, no organomegaly. Extremities: Extremities normal, atraumatic, no cyanosis or edema. Pulses: 2+ and symmetric. Skin: Skin color, texture, tugor normal, no rashes or lesions. Neurologic: Alert oriented x3 cranial nerves II through XII intact, no motor deficit, no abnormal balance or gait. Speech at the time of evaluation his back is normal. Results CBC & Chem 7: 07/11/19 20:54 07/11/19 20:54 Labs: Abnormal Lab Results - Last 24 Hours (Table) 07/11/19 07/11/19 07/12/19 Range/Units 20:53 20:54 00:29 Sodium 136 L (137-145) mmol/L Carbon Dioxide 19 L (22-30) mmol/L BUN 32 H (9-20) mg/dL Creatinine 1.43 H (0.66-1.25) mg/dL Glucose 155 H (74-99) mg/dL POC Glucose (mg/dL) 162 H 227 H (75-99) mg/dL Calcium 10.7 H (8.4-10.2) mg/dL Triglycerides (<150) mg/dL 07/12/19 07/12/19 Range/Units 03:00 12:00 Sodium (137-145) mmol/L Carbon Dioxide (22-30) mmol/L BUN (9-20) mg/dL Creatinine (0.66-1.25) mg/dL Glucose (74-99) mg/dL POC Glucose (mg/dL) 129 H (75-99) mg/dL Calcium (8.4-10.2) mg/dL Triglycerides 226 H (<150) mg/dL Thrombosis Risk Factor Assmnt - DVT/VTE Prophylaxis DVT/VTE Prophylaxis: Pharmacologic Prophylaxis ordered, Mechanical Prophylaxis ordered - Choose All That Apply Each Risk Factor Represents 2 Points: Age 61-74 years Thrombosis Risk Factor Assessment Total Risk Factor Score: 2 Thrombosis Risk Factor Assessment Level: Low Risk Assessment and Plan Plan: 1 TIA/CVA: Symptoms are much better so far, patient be going for an MRI of the brain, carotid ultrasound, echocardiogram, and continue cardiac monitor technician if no finding with his cardiac monitor technician patient can benefit from 3 days heart monitor or event monitor. If not able to make an arrangement for his MRI as an inpatient was scheduled as an outpatient and do it after his discharge. 2 atherosclerotic heart disease: Seen cardiology regular basis has been on atorvastatin, lisinopril, metoprolol and hydralazine. 3 type 2 diabetes: On insulin he is on 20-25 units of Humalog before meals meals plus once a day longer acting and continue metformin, and Januvia. 4 post renal transplant: Remain on Prograf, prednisone and mycophenolic acid, still been [facility] and on regular basis. 5 hypertension: On multi-medication including hydralazine 50 mg twice a day, amlodipine 10 mg a day, metoprolol titrate 50 mg 3 times a day and lisinopril 10 mg daily. 6 hyperlipidemia: Remain on atorvastatin 40 mg a day. 7 chronic diabetic neuropathy: No medication at this point. 8 BPH: Watch for any urinary retention. 9 DVT prophylaxis: Patient will be on heparin 5000 units subcutaneous twice a d ay, continue Venodyne boots and knee-high NIKHIL hose. 10 GI prophylaxis: Patient be on Pepcid 20 mg daily. CODE STATUS: Full code. Admit patient to inpatient status for 1-2 nights.
--- NOTE | 2019-07-12 13:08 | P.CNNES ---
History of Present Illness Consult date: 07/12/19 Reason for Consult: TIA Chief complaint: Right upper and lower extremity weakness History of Present Illness: HISTORY OF PRESENT ILLNESS: Thank you for allowing me to evaluate Mr. Graham Zepeda. Mr. Zepeda is a 64-year-old right-handed male with past medical history of diabetes, hypertension, hyperlipidemia, stroke, Presenting to [facility] for right upper and lower extremity weakness along with possible speech difficulty. Patient states that he was at a bowling alley with his friends when he noticed that he wasn't really able to move his right arm. When he tried to get up, he was not able to do much strength on his right side either. His friends brought him to the hospital yesterday. He states that he had mild numbness in his left fingers to 3 days ago. He states that he had a little bit of slurred speech possibly, but did not have any issues with production of speech. Patient denies ever having similar episodes. He does state that he had a stroke when he was 42 years old where he couldn't keep his body straight, he was told that he had a blockage in his cerebellum. When discussing the CT finding of possible old right temporal stroke, patient states that he was never aware of it. He states that he had been on Coumadin when he first had a stroke at age 42. Patient is not sure why he was started on Coumadin, but he remembers having to check his labs frequently. He does not remember how long he was on Coumadin. Denies any headache, nausea, vomiting, dizziness, double/blurry vision, numbness or tingling. PAST MEDICAL HISTORY: diabetes, hypertension, hyperlipidemia, stroke, renal transplant PAST SURGICAL HISTORY: Renal transplant HOME MEDICATIONS: Tamsulosin, tacrolimus, mycophenolate, prednisone, pioglitazone, paricalcitol, metformin, amlodipine, hydralazine, metoprolol, lisinopril, insulin, atorvastatin, allopurinol, Plavix ALLERGIES: NKDA SOCIAL HISTORY: Current smoker. Social drinker FAMILY HISTORY: Father had a stroke, he from NH at age 46. Mother also had a NH. REVIEW OF SYSTEMS: The 14 systems are reviewed and no additional points are identified compared to the review of systems documented history and physical PHYSICAL EXAMINATION: VITAL SIGNS: T 98.4 HR 73 RR 16 BP 124/57 O2 sat 94% on RA GEN.: NAD, pleasant and cooperative HEENT: NCAT, sclera without icterus NECK: Supple SKIN AND EXTREMITIES: Warm to touch, no edema NEURO: MENTAL STATUS: Patient alert and oriented to self, place, time. Able to name the current president. Speech fluent, able to name and repeat, following all commands readily. No right and left disorientation, neglect. CRANIAL NERVES II THROUGH XII: II: Pupils are equal and reactive to light symmet rically. No afferent pupillary defect. Visual gage are intact. III, IV, : No ptosis. Extraocular movements full. No nystagmus. V: Facial sensation intact from V1-3. VII. No clear facial asymmetry. VIII: Hearing intact to finger rub bilaterally. IX, X: Symmetric palate elevation. XI: Shoulder shrug intact. XII: Tongue midline without fasciculation or atrophy. MOTOR: Normal bulk/tone. Mild right upper extremity drift.. Strength is 5/5 in left upper and lower extremity, 4++/5 in right upper and lower extremity SENSORY: Intact to light touch in all 4 extremities. Romberg is negative. REFLEXES: 1+ throughout. Toes are mute COORDINATION: Finger to nose intact. No dysmetria. GAIT: Narrow-based and stable. Able to toe/heel/tandem walk DIAGNOSTIC TESTING: LABORATORY: WBC 8.4 hemoglobin 13.1 platelet 201 PT 9.8 INR 0.9 Sodium 136 potassium 4.7 chloride 105 bicarb 19 BUN 32 creatinine 1.43 glucose 155 AST 17 ALT 29 alk phos 56 troponin 0.024 Total cholesterol 125 LDL 40 HDL 40 triglycerides 226 IMAGING: CT head without contrast 07/11/2019: Old right temporal lobe cortical infarct. No acute intracranial abnormality. No change (I personally compared to imaging from 01/08/2016. There is also evidence of old right temporal lobe infarct.) Carotid Doppler bilateral 07/12/2019: Mild degree of thomas scale atheromatous plaquing with no sonographically evident hemodynamically significant stenosis within either visual leg, carotid or ICA. ASSESSMENT: Mr. Zepeda is a 64-year-old right-handed male with past medical history of diabetes, hypertension, hyperlipidemia, stroke, Presenting to [facility] for right upper and lower extremity weakness along with possible speech difficulty. RECOMMENDATIONS: 1. MRI brain without contrast 2. Transthoracic echocardiogram, pending final results 3. Cardiac monitoring (no atrial arrhythmia noted so far 4. Permissive HTN for 24-48 hours SBP >220. Give labetalol 10mg IV q1h PRN for SBP >220 DBP >110 5. Continue with Plavix and atorvastatin 6. Labs: A1C, TSH, FLP 7. PT/OT/ST per protocol 8. Discussed with patient about stroke prevention guidelines. Medication compliance, hypertension/diabetes control, lifestyle changes including no smoking, drinking in moderation, losing weight, exercising, eating healthier 9. Neurology will continue to follow 10. Patient needs to follow up with neurologist as outpatient with her 1-2 weeks of discharge Past Medical History Past Medical History: CVA/TIA, Diabetes Mellitus, Hyperlipidemia, Hypertension Additional Past Medical History / Comment(s): kidney transplant; stroke at 42 y ears old History of Any Multi-Drug Resistant Organisms: None Reported Additional Past Surgical History / Comment(s): kidney transplant Past Psychological History: No Psychological Hx Reported Smoking Status: Current every day smoker Past Alcohol Use History: Occasional Past Drug Use History: None Reported Additional Drug Use History / Comment(s): pt smokes when drinks...may have 5 cigarettes a day Medications and Allergies Home Medications Medication Instructions Recorded Confirmed Type Allopurinol [Zyloprim] 100 mg PO DAILY 07/11/19 07/11/19 History Atorvastatin [Lipitor] 40 mg PO DAILY 07/11/19 07/11/19 History Clopidogrel [Plavix] 75 mg PO DAILY 07/11/19 07/11/19 History INSULIN LISPRO (HumaLOG) [HumaLOG] 20 unit SQ AC-BID 07/11/19 07/11/19 History INSULIN LISPRO (HumaLOG) [HumaLOG] 25 unit SQ AC-SUPPER 07/11/19 07/11/19 History INSULIN LISPRO (HumaLOG) [HumaLOG] See Protocol SQ AC-TID 07/11/19 07/11/19 History Lisinopril [Zestril] 10 mg PO DAILY 07/11/19 07/11/19 History Metoprolol Tartrate [Lopressor] 50 mg PO TID 07/11/19 07/11/19 History Mycophenolate Sodium [Mycophenolic 720 mg PO BID 07/11/19 07/11/19 History Acid] Paricalcitol 1 mcg PO DAILY 07/11/19 07/11/19 History Pioglitazone HCl 15 mg PO DAILY 07/11/19 07/11/19 History Tacrolimus [Prograf] 1 mg PO HS 07/11/19 07/11/19 History Tacrolimus [Prograf] 2 mg PO QAM 07/11/19 07/11/19 History Tamsulosin HCl [Flomax] 0.4 mg PO DAILY 07/11/19 07/11/19 History amLODIPine BESYLATE 10 mg PO DAILY 07/11/19 07/11/19 History hydrALAZINE HCL [Apresoline] 50 mg PO BID 07/11/19 07/11/19 History metFORMIN HCL ER [Glucophage Xr] 500 mg PO DAILY 07/11/19 07/11/19 History predniSONE 5 mg PO DAILY 07/11/19 07/11/19 History Allergies Allergy/AdvReac Type Severity Reaction Status Date / Time No Known Allergies Allergy Verified 07/11/19 21:37 Physical Examination - Vital Signs Vital Signs: Vital Signs Temp Pulse Pulse Resp BP BP Pulse Ox 07/12/19 09:28 98.4 F 73 16 124/57 94 L 07/12/19 04:27 71 18 140/63 97 07/12/19 01:10 97.7 F 68 18 163/102 94 L 07/11/19 23:59 98.3 F 82 18 168/70 98 07/11/19 22:35 68 18 170/81 98 07/11/19 20:27 98.0 F 70 20 150/69 95 Intake and Output 07/11/19 07/12/19 07/12/19 22:59 06:59 14:59 Intake Total 240 Balance 240 Intake: Oral 240 Other: # Voids 1 Weight 93.44 kg 93.2 kg Results - Laboratory Findings CBC and BMP: 07/11/19 20:54 07/11/19 20:54 Abnormal Lab Findings: Abnormal Labs 07/11/19 07/11/19 07/12/19 20:53 20:54 00:29 Sodium 136 L Carbon Dioxide 19 L BUN 32 H Creatinine 1.43 H Glucose 155 H POC Glucose (mg/dL) 162 H 227 H Calcium 10.7 H Triglycerides 07/12/19 03:00 Sodium Carbon Dioxide BUN Creatinine Glucose POC Glucose (mg/dL) Calcium Triglycerides 226 H
--- NOTE | 2019-07-12 13:32 | ECHOF ---
Referral Reason:Thrombus MEASUREMENTS -------- HEIGHT: 180.3 cm WEIGHT: 93.0 kg BP: RVIDd: 2.2 cm (< 3.3) IVSd: 1.8 cm (0.6 - 1.1) LVIDd: 4.0 cm (3.9 - 5.3) LVPWd: 2.1 cm (0.6 - 1.1) IVSs: 2.7 cm LVIDs: 2.1 cm LVPWs: 2.7 cm LAESV Index (A-L): 23.64 ml/m Ao Diam: 3.1 cm (2.0 - 3.7) AV Cusp: 1.4 cm (1.5 - 2.6) LA Diam: 3.2 cm (2.7 - 3.8) MV EXCURSION: 9.718 mm (> 18.000) MV EF SLOPE: 36 mm/s (70 - 150) EPSS: 1.1 cm MV E Elmer: 1.48 m/s MV DecT: 242 ms MV A Elmer: 1.39 m/s MV E/A Ratio: 1.06 AV maxP.86 mmHg AV meanP.18 mmHg AR PHT: 523 ms RAP: 5.00 mmHg RVSP: 39.42 mmHg TAPSE: 29.67 mm FINDINGS -------- Sinus rhythm. This was a technically good study. The left ventricular size is normal. There is severe concentric left ventricular hypertrophy. Ove rall left ventricular systolic function is normal with, an EF between 55 - 60 %. The right ventricle is normal in size. The right ventricular systolic function is normal. The left atrial size is normal. Normal LA size by volume 22+/-6 ml/m2. The right atrial size is normal. Aortic valve is trileaflet and is severely thickened. There is mild aortic regurgitation. There i s severe aortic stenosis present. Peak/mean gradient across the Aortic Valve is 79.86mmHg / 56.18mm Hg. The mitral valve is normal. The mitral valve leaflets are mildly thickened. Mild mitral annular c alcification present. Mild mitral regurgitation is present. The tricuspid valve appears structurally normal. Mild tricuspid regurgitation present. There is m ild pulmonary hypertension. The right ventricular systolic pressure, as measured by Doppler, is 39. 42mmHg. There is no pulmonic regurgitation present. The aortic root size is normal. Normal inferior vena cava with normal inspiratory collapse consistent with estimated right atrial pre ssure of 5 mmHg. There is no pericardial effusion. CONCLUSIONS -------- 1. Sinus rhythm. 2. This was a technically good study. 3. The left ventricular size is normal. 4. There is severe concentric left ventricular hypertrophy. 5. Overall left ventricular systolic function is normal with, an EF between 55 - 60 %. 6. The right ventricle is normal in size. 7. The right ventricular systolic function is normal. 8. The left atrial size is normal. 9. Normal LA size by volume 22+/-6 ml/m2. 10. The right atrial size is normal. 11. Aortic valve is trileaflet and is severely thickened. 12. There is mild aortic regurgitation. 13. There is severe aortic stenosis present. 14. Peak/mean gradient across the Aortic Valve is 79.86mmHg / 56.18mmHg. 15. The mitral valve is normal. 16. The mitral valve leaflets are mildly thickened. 17. Mild mitral annular calcification present. 18. Mild mitral regurgitation is present. 19. The tricuspid valve appears structurally normal. 20. Mild tricuspid regurgitation present. 21. There is mild pulmonary hypertension. 22. The right ventricular systolic pressure, as measured by Doppler, is 39.42mmHg. 23. There is no pulmonic regurgitation present. 24. The aortic root size is normal. 25. Normal inferior vena cava with normal inspiratory collapse consistent with estimated right atrial pressure of 5 mmHg. 26. There is no pericardial effusion. [employer] OPERATOR: Mia Martinez RDCS
[2019-07-12 16:57] VITALS: BP 151/66; PULSE 69
--- NOTE | 2019-07-12 17:00 | MR ---
EXAMINATION TYPE: MR brain wo/w con DATE OF EXAM: 07/12/2019 COMPARISON: CT brain from yesterday. HISTORY: right sided numbness, neural deficits or acute code stroke yesterday on admission TECHNIQUE: Multiplanar, multisequence images of the brain and brainstem is performed without and with IV contras t, utilizing 9 mL intravenous Gadavist . FINDINGS: Diffusion weighted images demonstrate no evidence of a recent infarct or other diffusion ab normality. There is no worrisome extra-axial fluid collection. There is diffuse ventricular and sulc al prominence most prominent over the bilateral frontal lobes. Scattered foci of T2 hyperintensity is seen throughout the white matter bilaterally most prominent periventricular levels. Findings presume the basis of fibrotic chronic small vessel ischemic change. Prominence of CSF lateral right temporal region axial image 12 favors small arachnoid cyst measuring 2.4 x 1.3 cm with local mass effect. Midline structures demonstrate normal morphology. The craniocervical junction appears within normal limits. Post contrast images demonstrate no abnormal enhancement. The dural venous sinuses appear pa tent. The visualized sinuses are clear and the globes are intact. Nasal septum remains deviated to le ft of midline. There is better visualization patchy fluid bilateral mastoid air cells. IMPRESSION: No evidence of a recent infarct. [id number] diffuse cerebral atrophy most prominent over the bilateral frontal lobes with mild to moderate chronic small vessel ischemic change. Small l ateral right middle cranial fossa 2.4 cm arachnoid cyst. Possible bilateral mastoiditis, correlate cl inically.
[2019-07-12 17:16] LABS: Glucose,Whole Blood 83 mg/dL (75-99)
[2019-07-12] MEDS ORDERED: HEPARIN SODIUM,PORCINE 5,000 UNIT/ML 1 ML VIAL SQ SCH (21:00)
[2019-07-12 21:56] LABS: Hemoglobin A1C 7.5 % (4.0-6.0)
[2019-07-12] MEDS ORDERED: ASPIRIN 325 MG TAB PO SCH (23:13)
[2019-07-13] MEDS ORDERED: FAMOTIDINE 20 MG TAB PO SCH (09:00)
--- NOTE | 2019-08-01 09:42 | P.DS ---
Providers Date of admission: 07/11/19 23:11 Expected date of discharge: 08/01/19 Attending physician: Mario Finley Consults: 07/11/19 23:12 Consult Physician Routine Consulting Provider: Kristi Griggs Consult Reason/Comments: TIA Do you want consulting provider notified?: Yes Primary care physician: Mario Finley [facility] Hospital Course: 63-year-old male one of my office patient of known for long time with history of type 2 diabetes on insulin, history of CVA in the past, post renal transplant at the [facility] over 5 years ago still been doing well. Patient worked in [employer] regularly apparently he didn't feel good all day and the bleeding in the evening and end up in the bowling alley with his friend had 1 beer at the time when he noticed he is having more slurred speech and significant expression aphasia not been able to lift his elbow and right upper extremity above the table and struggling with weakness on the right lower leg as well. He ended up asking one of his friend to drive him to demurs department at [facility] where was seen and evaluated his speech was back to normal his right side is much better at the time. CAT scan of the brain did not show any major abnormality. With his previous history of stroke on the very high risk of this point patient was admitted to the hospital continue neuro exam every 2 hours plan for an MRI of the brain, not able to do CT of the neck because of his kidney function and transplant patient will be going for carotid ultrasound and will be evaluated by neurology if his symptoms are better in the next 24 hours can be discharged. MRI of the brain revealed no evidence of infarct. Mild to moderate diffuse cerebral atrophy most prominent over the bilateral frontal lobes with mild to moderate chronic small vessel ischemic change. Small lateral right middle cranial fossa 2.4 cm arachnoid cyst. Possible bilateral mastoiditis. Carotid ultrasound: No hemodynamically significant stenosis in either common carotid or internal carotid artery. Echocardiogram reveals EF 55-60% with severe concentric left ventricular hypertrophy, mild aortic regurgitation, severe aortic stenosis, mild mitral regurgitation, mild tricuspid regurgitation, mild pulmonary hypertension. Patient was seen in consultation by neurology in both tests were completed. Acute CVA has been ruled out. Patient be discharged home in stable condition. Discharge diagnoses: 1 possible TIA 2 atherosclerotic heart disease 3 type 2 diabetes 4 post renal transplant 5 hypertension 6 hyperlipidemia 7 chronic diabetic neuropathy: No medication at this point. 8 BPH Discharge plan: Home Impression and plan of care have been directed as dictated by the signing physician. Vijaya Wilson nurse practitioner acting as scribe for signing physician. Patient Condition at Discharge: Good Plan - Discharge Summary Discharge Rx Participant: Yes New Discharge Prescriptions: Continue Tamsulosin HCl [Flomax] 0.4 mg PO DAILY Tacrolimus [Prograf] 2 mg PO QAM Tacrolimus [Prograf] 1 mg PO HS predniSONE 5 mg PO DAILY Pioglitazone HCl 15 mg PO DAILY Paricalcitol 1 mcg PO DAILY Mycophenolate Sodium [Mycophenolic Acid] 720 mg PO BID metFORMIN HCL ER [Glucophage Xr] 500 mg PO DAILY hydrALAZINE HCL [Apresoline] 50 mg PO BID Metoprolol Tartrate [Lopressor] 50 mg PO TID Lisinopril [Zestril] 10 mg PO DAILY INSULIN LISPRO (HumaLOG) [humaLOG] 20 unit SQ AC-BID INSULIN LISPRO (HumaLOG) [humaLOG] 25 unit SQ AC-SUPPER INSULIN LISPRO (HumaLOG) [humaLOG] See Protocol SQ AC-TID amLODIPine BESYLATE 10 mg PO DAILY Clopidogrel [Plavix] 75 mg PO DAILY Atorvastatin [Lipitor] 40 mg PO DAILY Allopurinol [Zyloprim] 100 mg PO DAILY Discharge Medication List Allopurinol [Zyloprim] 100 mg PO DAILY 07/11/19 [History] Atorvastatin [Lipitor] 40 mg PO DAILY 07/11/19 [History] Clopidogrel [Plavix] 75 mg PO DAILY 07/11/19 [History] INSULIN LISPRO (HumaLOG) [humaLOG] 20 unit SQ AC-BID 07/11/19 [History] INSULIN LISPRO (HumaLOG) [humaLOG] 25 unit SQ AC-SUPPER 07/11/19 [History] INSULIN LISPRO (HumaLOG) [humaLOG] See Protocol SQ AC-TID 07/11/19 [History] Lisinopril [Zestril] 10 mg PO DAILY 07/11/19 [History] Metoprolol Tartrate [Lopressor] 50 mg PO TID 07/11/19 [History] Mycophenolate Sodium [Mycophenolic Acid] 720 mg PO BID 07/11/19 [History] Paricalcitol 1 mcg PO DAILY 07/11/19 [History] Pioglitazone HCl 15 mg PO DAILY 07/11/19 [History] Tacrolimus [Prograf] 1 mg PO HS 07/11/19 [History] Tacrolimus [Prograf] 2 mg PO QAM 07/11/19 [History] Tamsulosin HCl [Flomax] 0.4 mg PO DAILY 07/11/19 [History] amLODIPine BESYLATE 10 mg PO DAILY 07/11/19 [History] hydrALAZINE HCL [Apresoline] 50 mg PO BID 07/11/19 [History] metFORMIN HCL ER [Glucophage Xr] 500 mg PO DAILY 07/11/19 [History] predniSONE 5 mg PO DAILY 07/11/19 [History] Follow up Appointment(s)/Referral(s): Mario Finley MD [Primary Care Provider] - 1 Week (Office is closed. Please call to schedule appointment) Patient Instructions/Handouts: Transient Ischemic Attack (DC) Activity/Diet/Wound Care/Special Instructions: Neurology follow up in one to 2 weeks. Discharge Disposition: HOME SELF-CARE
== END 2019-07-12 17:34 | disposition home or self-care (01) ==
LOC: EC 20:19 → 3SCARD 23:11
PROVIDERS: ADMIT Internal Medicine Geriatric Medicine; ATTEND Internal Medicine Geriatric Medicine
DX: R53.1 Weakness (principal); R47.81 Slurred speech; R13.10 Dysphagia, unspecified; R47.01 Aphasia; G81.91 Hemiplegia, unspecified affecting right dominant side; R94.4 Abnormal results of kidney function studies; I10 Essential (primary) hypertension; E78.5 Hyperlipidemia, unspecified; I25.10 Atherosclerotic heart disease of native coronary artery without angina pectoris; E11.40 Type 2 diabetes mellitus with diabetic neuropathy, unspecified; N40.0 Benign prostatic hyperplasia without lower urinary tract symptoms; Z94.0 Kidney transplant status; F17.210 Nicotine dependence, cigarettes, uncomplicated; Z86.73 Personal history of transient ischemic attack (TIA), and cerebral infarction without residual deficits; Z79.4 Long term (current) use of insulin; Z79.899 Other long term (current) drug therapy; Z79.02 Long term (current) use of antithrombotics/antiplatelets; Z79.52 Long term (current) use of systemic steroids
CPT/HCPCS: 96360; 96361; 99285; 36415; 93005; 93306; 97161; 97165; 92522; 80061; 80053; 84443; 82550; 84484 ×2; 85025; 85610; 85730; 83036; 71046; 93880; 70450; 70553; G0378 ×2; J7507; J7518; J7512; A9585

== ENCOUNTER → 2019-08-04 | Outpatient (CLI) | payer OTHER ==
[2019-08-04 15:32] LABS: Basophils % (A) 1 %; Eosinophils # (A) 0.1 k/uL (0-0.7); Eosinophils % (A) 1 %; HCT 39.4 % (39.0-53.0); HGB 12.9 gm/dL (13.0-17.5); Lymphocytes # (A) 1.8 k/uL (1.0-4.8); Lymphocytes % (A) 26 %; MCH 30.3 pg (25.0-35.0); MCHC 32.7 g/dL (31.0-37.0); MCV 92.6 fL (80.0-100.0); Mean Platelet Volume 7.3; Monocytes # (A) 0.5 k/uL (0-1.0); Monocytes % (A) 8 %; Neutrophils % (A) 60 %; Platelet Count 182 k/uL (150-450); RBC 4.26 m/uL (4.30-5.90); RDW 13.5 % (11.5-15.5); WBC 6.7 k/uL (3.8-10.6)
[2019-08-04 15:35] LABS: Appearance,Urine Clear (Clear); Bilirubin,Urine Negative (Negative); Blood,Urine Negative (Negative); Color,Urine Yellow; Glucose,Urine (UA) Negative (Negative); Ketones,Urine Negative (Negative); Leukocyte Esterase,Urine Negative (Negative); Nitrite,Urine Negative (Negative); PH, Urine 5.5 (5.0-8.0); Protein,Urine Trace (Negative); Specific Gravity,Urine 1.022 (1.001-1.035); Urobilinogen,Urine <2.0 mg/dL (<2.0)
[2019-08-04 23:31] LABS: African American GFR (CKD) 74.7 (60.0-200.0); Albumin 4.2 g/dL (3.80-4.90); Albumin/Globulin Ratio 2.8 (1.60-3.17); Anion Gap 5.7 mmol/L (4.00-12.00); Calcium 10.3 mg/dL (8.7-10.3); Carbon Dioxide 24.3 mmol/L (21.6-31.8); Chol/HDL Ratio 3.27; Globulin 1.5 g/dL (1.6-3.3); LDL Cholesterol,Calculated 41.2 mg/dL (0.0-131.0); Magnesium 1.5 mg/dL (1.5-2.4); Phosphorus 2.4 mg/dL (2.4-5.1); Potassium 4.3 mmol/L (3.5-5.5); Total Bilirubin 0.5 mg/dL (0.3-1.2); Total Protein 5.7 g/dL (6.2-8.2); VLDL Calculation 51.8 mg/dL (5.00-40.00)
[2019-08-04 23:35] LABS: Uric Acid 5.4 mg/dL (3.7-8.7)
[2019-08-05 00:11] LABS: Creatinine,Urine Random 164.5 mg/dL
[2019-08-05 01:39] LABS: Total Protein,Urine Random 20.4 mg/dL (0.0-13.5)
== END ==
LOC: LABWHC1 14:27
PROVIDERS: ATTEND Nurse Practitioner
DX: Z51.81 Encounter for therapeutic drug level monitoring (principal); Z79.899 Other long term (current) drug therapy; Z94.0 Kidney transplant status
CPT/HCPCS: 36415; 80053; 80061; 80197; 81003; 82306; 82570; 82977; 83735; 83970; 84100; 84156; 84550; 85025

== ENCOUNTER → 2020-08-05 | Outpatient (CLI) | payer OTHER ==
[2020-08-05 14:38] LABS: Basophils # (A) 0.1 k/uL (0-0.2); Basophils % (A) 1 %; Eosinophils # (A) 0.2 k/uL (0-0.7); Eosinophils % (A) 2 %; HCT 45.3 % (39.0-53.0); HGB 14.2 gm/dL (13.0-17.5); Lymphocytes # (A) 2.7 k/uL (1.0-4.8); Lymphocytes % (A) 29 %; MCH 29.2 pg (25.0-35.0); MCHC 31.4 g/dL (31.0-37.0); MCV 92.7 fL (80.0-100.0); Mean Platelet Volume 7.9; Monocytes # (A) 0.7 k/uL (0-1.0); Monocytes % (A) 8 %; Neutrophils # (A) 5.3 k/uL (1.3-7.7); Neutrophils % (A) 58 %; Platelet Count 166 k/uL (150-450); RBC 4.89 m/uL (4.30-5.90); RDW 13.6 % (11.5-15.5); WBC 9.1 k/uL (3.8-10.6)
[2020-08-05 16:13] LABS: Appearance,Urine Clear (Clear); Bilirubin,Urine Negative (Negative); Blood,Urine Negative (Negative); Color,Urine Yellow; Glucose,Urine (UA) 2+ (Negative); Ketones,Urine Negative (Negative); Leukocyte Esterase,Urine Negative (Negative); Nitrite,Urine Negative (Negative); PH, Urine 5.5 (5.0-8.0); Protein,Urine Trace (Negative); Specific Gravity,Urine 1.024 (1.001-1.035); Urobilinogen,Urine <2.0 mg/dL (<2.0)
[2020-08-05 19:38] LABS: African American GFR (CKD) 56.6 (60.0-200.0); Albumin 4.3 g/dL (3.80-4.90); Anion Gap 6.9 mmol/L (4.00-12.00); Carbon Dioxide 26.1 mmol/L (21.6-31.8); Chol/HDL Ratio 3.54; LDL Cholesterol,Calculated 73.8 mg/dL (0.0-131.0); Magnesium 1.8 mg/dL (1.5-2.4); Non-African American GFR(CKD) 48.8 (60.0-200.0); Phosphorus 3.1 mg/dL (2.4-5.1); Total Bilirubin 0.6 mg/dL (0.3-1.2); VLDL Calculation 25.2 mg/dL (5.00-40.00)
[2020-08-06 05:03] LABS: Creatinine,Urine Random 177.3 mg/dL
[2020-08-06 05:18] LABS: Total Protein,Urine Random 29.5 mg/dL (0.0-13.5)
[2020-08-06 15:12] LABS: Tacrolimus (FK506) 6.6 ng/mL (5.0-20.0)
[2020-08-06 16:34] LABS: BK Virus DNA PCR, Qualitative Not detected (Not detected); BKV DNA (PCR), Quant <125 Copies/mL (<125); LOG BKV Copies/mL <2.10 (<2.10)
== END | disposition home or self-care (01) ==
LOC: LABWHC1 13:42
PROVIDERS: ATTEND Nurse Practitioner
DX: Z48.22 Encounter for aftercare following kidney transplant (principal); Z94.0 Kidney transplant status; Z51.81 Encounter for therapeutic drug level monitoring; Z79.899 Other long term (current) drug therapy
CPT/HCPCS: 36415; 80051; 80061; 80197; 81003; 82040; 82247; 82306; 82310; 82565; 82570; 82947; 82977; 83735; 83970; 84075; 84100; 84156; 84450; 84460; 84520; 84550; 85025

== ENCOUNTER → 2020-11-05 | Outpatient (CLI) | payer OTHER ==
[2020-11-05 22:09] LABS: Hemoglobin A1C 8.5 % (4.0-6.0)
[2020-11-06 00:27] LABS: African American GFR (CKD) 66.8 (60.0-200.0); Albumin 4.2 g/dL (3.80-4.90); Albumin/Globulin Ratio 2.21 (1.60-3.17); Anion Gap 12.5 mmol/L (4.00-12.00); BUN/Creat Ratio 14.62 Ratio (12.00-20.00); Calcium 10.1 mg/dL (8.7-10.3); Carbon Dioxide 21.5 mmol/L (21.6-31.8); Chol/HDL Ratio 3.43; Globulin 1.9 g/dL (1.6-3.3); LDL Cholesterol,Calculated 65.2 mg/dL (0.0-131.0); Non-African American GFR(CKD) 57.7 (60.0-200.0); Potassium 4.5 mmol/L (3.5-5.5); Total Bilirubin 0.7 mg/dL (0.3-1.2); Total Protein 6.1 g/dL (6.2-8.2); VLDL Calculation 24.8 mg/dL (5.00-40.00)
[2020-11-06 00:36] LABS: T4, Free (Free Thyroxine) 1.4 ng/dL (0.80-1.80)
== END | disposition home or self-care (01) ==
LOC: LABWHC1 11:51
PROVIDERS: ATTEND Internal Medicine Geriatric Medicine
DX: I25.10 Atherosclerotic heart disease of native coronary artery without angina pectoris (principal); E11.42 Type 2 diabetes mellitus with diabetic polyneuropathy; E03.9 Hypothyroidism, unspecified
CPT/HCPCS: 36415; 80053; 80061; 83036; 84439; 84443

== ENCOUNTER → 2021-05-12 | Outpatient (CLI) | payer OTHER ==
[2021-05-12 19:12] LABS: African American GFR (CKD) 91.8 (60.0-200.0); Albumin 3.8 g/dL (3.80-4.90); Albumin/Globulin Ratio 1.65 (1.60-3.17); Anion Gap 5.6 mmol/L (4.00-12.00); Calcium 9.2 mg/dL (8.7-10.3); Carbon Dioxide 25.4 mmol/L (21.6-31.8); Chol/HDL Ratio 3.67; Globulin 2.3 g/dL (1.6-3.3); Non-African American GFR(CKD) 79.2 (60.0-200.0); Potassium 4.1 mmol/L (3.5-5.5); Total Bilirubin 0.8 mg/dL (0.2-1.2); Total Protein 6.1 g/dL (6.2-8.2)
[2021-05-12 19:50] LABS: Basophils # (A) 0.02 X 10*3/uL (0.00-0.10); Basophils % (A) 0.3 %; Eosinophils # (A) 0.15 X 10*3/uL (0.04-0.35); Eosinophils % (A) 2.1 %; HCT 43.2 % (39.6-50.0); HGB 13.5 g/dL (13.0-17.0); Lymphocytes # (A) 2.27 X 10*3/uL (0.90-5.00); Lymphocytes % (A) 32.3 %; MCHC 31.3 g/dL (32.0-37.0); MCV 92.9 fL (80.0-97.0); Mean Platelet Volume 11.2 fL (9.5-12.2); Monocytes # (A) 0.83 X 10*3/uL (0.20-1.00); Monocytes % (A) 11.8 %; Neutrophils # (A) 3.72 X 10*3/uL (1.80-7.70); Neutrophils % (A) 52.9 %; Platelet Count 168 X 10*3/uL (140-440); RBC 4.65 X 10*6/uL (4.40-5.60); RDW 13.5 % (11.5-14.5); WBC 7.03 X 10*3/uL (4.50-10.00)
== END | disposition home or self-care (01) ==
LOC: LABWHC1 11:26
PROVIDERS: ATTEND Internal Medicine Geriatric Medicine
DX: I25.10 Atherosclerotic heart disease of native coronary artery without angina pectoris (principal); E11.42 Type 2 diabetes mellitus with diabetic polyneuropathy; Z94.0 Kidney transplant status
CPT/HCPCS: 36415; 80053; 80061; 83036; 84443; 85025

== ENCOUNTER → 2021-09-01 | Outpatient (CLI) | payer OTHER ==
[2021-09-01 18:01] LABS: Basophils # (A) 0.03 X 10*3/uL (0.00-0.10); Basophils % (A) 0.4 %; Eosinophils # (A) 0.17 X 10*3/uL (0.04-0.35); Eosinophils % (A) 2.1 %; HCT 44.9 % (39.6-50.0); HGB 14.1 g/dL (13.0-17.0); Lymphocytes # (A) 2.51 X 10*3/uL (0.90-5.00); MCH 28.7 pg (27.0-32.0); MCHC 31.4 g/dL (32.0-37.0); MCV 91.3 fL (80.0-97.0); Mean Platelet Volume 11.5 fL (9.5-12.2); Monocytes # (A) 0.84 X 10*3/uL (0.20-1.00); Monocytes % (A) 10.4 %; Neutrophils # (A) 4.52 X 10*3/uL (1.80-7.70); Neutrophils % (A) 55.7 %; Platelet Count 148 X 10*3/uL (140-440); RBC 4.92 X 10*6/uL (4.40-5.60); RDW 13.1 % (11.5-14.5)
[2021-09-01 20:44] LABS: ALT 21 U/L (10-49); AST 11 U/L (14-35); African American GFR (CKD) 78.3 (60.0-200.0); Albumin 3.9 g/dL (3.8-4.9); Albumin/Globulin Ratio 1.86 (1.60-3.17); Alkaline Phosphatase 88 U/L (41-126); BUN/Creat Ratio 16.23 Ratio (12.00-20.00); Blood Urea Nitrogen 18.5 mg/dL (9.0-27.0); Carbon Dioxide 21.3 mmol/L (20.0-27.5); Chloride 106 mmol/L (96-109); Chol/HDL Ratio 3.72 Ratio; Globulin 2.1 g/dL (1.6-3.3); Glucose 179 mg/dL (70-110); LDL Cholesterol,Calculated 93.4 mg/dL (0.0-131.0); Non-African American GFR(CKD) 67.6 (60.0-200.0); Potassium 4.2 mmol/L (3.5-5.5); Sodium 139 mmol/L (135-145); Total Protein 5.9 g/dL (6.2-8.2)
== END | disposition home or self-care (01) ==
LOC: LABWHC1 12:32
PROVIDERS: ATTEND Internal Medicine Geriatric Medicine
DX: I25.10 Atherosclerotic heart disease of native coronary artery without angina pectoris (principal); E11.42 Type 2 diabetes mellitus with diabetic polyneuropathy; N40.0 Benign prostatic hyperplasia without lower urinary tract symptoms; Z94.0 Kidney transplant status
CPT/HCPCS: 36415; 80053; 80061; 82043; 82570; 83036; 84153; 84443; 85025

== ENCOUNTER 2022-07-27 21:18 | Observation (INO) | payer MEDICARE ==
[2022-07-27 21:29] LABS: Glucose,Whole Blood 71 mg/dL (70-110)
--- NOTE | 2022-07-27 21:44 | ED ---
General Adult HPI - General Chief complaint: Altered Mental Status Stated complaint: AMS/ Jonathan Time Seen by Provider: 07/27/22 21:31 Source: patient Mode of arrival: ambulatory Limitations: no limitations - History of Present Illness Initial comments: Dictation was produced using [employer] dictation software. please excuse any grammatical, word or spelling errors. Chief Complaint: 66-year-old male past medical history of stroke, diabetes dyslipidemia hypertension presents to the emergency department for episode of confusion. History of Present Illness: Patient 66-year-old male past medical history of diabetes and stroke. Patient was noted to have garbled and confused speech over the phone with his sister approximately one hour ago. Patient states that he is a diabetic and forgot to eat because he was busy due to budget chores. He felt like her sugars were low causing him to be confused. Patient he was confused earlier today. He last felt normal around 7:30 PM. Patient states that since being in the emergency department symptoms are almost gone., At the bedside states that he presented via baseline. Patient has a history of stroke without any residual deficits. The ROS documented in this emergency department record has been reviewed and confirmed by me. Those systems with pertinent positive or negative responses have been documented in the HPI. All other systems are other negative and/or noncontributory. PHYSICAL EXAM: General Impression: Alert and oriented x3, not in acute distress HEENT: Normocephalic atraumatic, extra-ocular movements intact, pupils equal and reactive to light bilaterally, mucous membranes moist. Cardiovascular: Heart regular rate and rhythm Chest: Able to complete full sentences, no retractions, no tachypnea Abdomen: abdomen soft, non-tender, non-distended, no organomegaly Musculoskeletal: Pulses present and equal in all extremities, no peripheral edema Motor: no focal deficits noted Neurological: CN II-XII grossly intact, no focal motor or sensory deficits noted, NIH 0 Skin: Intact with no visualized rashes Psych: Normal affect and mood ED course: 66-year-old male presents emergency department for episode of confusion. Presentation suspicious for episode of hypoglycemia versus transient ischemic attack. Vital signs upon arrival are within acceptable limits. Neurologic exam at bedside is unremarkable. Laboratory evaluation obtained. CBC unremarkable. Metabolic panel shows mild hyperglycemia with a blood glucose of 71. Patient given for glucose in the form of juice. Patient reevaluated at bedside at 10:55 PM found with stable medical condition. Patient not showing any strokelike symptoms. Patient will be admitted for suspicion of transient ischemic attack. Patient given aspirin. - Related Data Home Medications Medication Instructions Recorded Confirmed Atorvastatin [Lipitor] 40 mg PO DAILY 07/11/19 07/11/19 Clopidogrel [Plavix] 75 mg PO DAILY 07/11/19 07/11/19 INSULIN LISPRO (HumaLOG) [humaLOG] 20 unit SQ AC-BID 07/11/19 07/11/19 INSULIN LISPRO (HumaLOG) [humaLOG] 25 unit SQ AC-SUPPER 07/11/19 07/11/19 INSULIN LISPRO (HumaLOG) [humaLOG] See Protocol SQ AC-TID 07/11/19 07/11/19 Metoprolol Tartrate [Lopressor] 50 mg PO TID 07/11/19 07/11/19 Mycophenolate Sodium [Mycophenolic 720 mg PO BID 07/11/19 07/11/19 Acid] Pioglitazone HCl 15 mg PO DAILY 07/11/19 07/11/19 Tacrolimus [Prograf] 1 mg PO HS 07/11/19 07/11/19 Tacrolimus [Prograf] 2 mg PO QAM 07/11/19 07/11/19 Tamsulosin HCl [Flomax] 0.4 mg PO DAILY 07/11/19 07/11/19 allopurinoL [Zyloprim] 100 mg PO DAILY 07/11/19 07/11/19 amLODIPine BESYLATE 10 mg PO DAILY 07/11/19 07/11/19 hydrALAZINE HCL [Apresoline] 50 mg PO BID 07/11/19 07/11/19 lisinopriL [Zestril] 10 mg PO DAILY 07/11/19 07/11/19 metFORMIN HCL ER [Glucophage XR] 500 mg PO DAILY 07/11/19 07/11/19 paricalcitoL [Paricalcitol] 1 mcg PO DAILY 07/11/19 07/11/19 predniSONE 5 mg PO DAILY 07/11/19 07/11/19 Allergies Allergy/AdvReac Type Severity Reaction Status Date / Time No Known Allergies Allergy Verified 07/11/19 21:37 Review of Systems ROS Statement: Those systems with pertinent positive or pertinent negative responses have been documented in the HPI. ROS Other: All systems not noted in ROS Statement are negative. Past Medical History Past Medical History: CVA/TIA, Diabetes Mellitus, Hyperlipidemia, Hypertension Additional Past Medical History / Comment(s): kidney transplant; stroke at 42 years old History of Any Multi-Drug Resistant Organisms: None Reported Additional Past Surgical History / Comment(s): kidney transplant Past Psychological History: No Psychological Hx Reported Past Alcohol Use History: Occasional Past Drug Use History: None Reported General Exam Limitations: no limitations Course Vital Signs 07/27/22 21:21 Temperature 98.2 F Pulse Rate 78 Respiratory 16 Rate Blood Pressure 186/62 O2 Sat by Pulse 97 Oximetry Medical Decision Making - Lab Data Result diagrams: 07/27/22 22:05 07/27/22 22:05 Lab Results 07/27/22 07/27/22 07/27/22 Range/Units 21:28 22:05 22:05 WBC 8.7 (3.8-10.6) k/uL RBC 4.53 (4.30-5.90) m/uL Hgb 12.8 L (13.0-17.5) gm/dL Hct 39.9 (39.0-53.0) % MCV 88.2 (80.0-100.0) fL MCH 28.2 (25.0-35.0) pg MCHC 31.9 (31.0-37.0) g/dL RDW 13.8 (11.5-15.5) % Plt Count 172 (150-450) k/uL MPV 8.9 Neutrophils % 59 % Lymphocytes % 26 % Monocytes % 9 % Eosinophils % 3 % Basophils % 0 % Neutrophils # 5.1 (1.3-7.7) k/uL Lymphocytes # 2.3 (1.0-4.8) k/uL Monocytes # 0.8 (0-1.0) k/uL Eosinophils # 0.3 (0-0.7) k/uL Basophils # 0.0 (0-0.2) k/uL Hypochromasia Slight Sodium 137 (137-145) mmol/L Potassium 3.6 (3.5-5.1) mmol/L Chloride 104 (98-107) mmol/L Carbon Dioxide 27 (22-30) mmol/L Anion Gap 6 mmol/L BUN 18 (9-20) mg/dL Creatinine 1.05 (0.66-1.25) mg/dL Est GFR (CKD-EPI)AfAm 86 (>60 ml/min/1.73 sqM) Est GFR (CKD-EPI)NonAf 75 (>60 ml/min/1.73 sqM) Glucose 71 L (74-99) mg/dL POC Glucose (mg/dL) 71 (70-110) mg/dL POC Glu Extension Specialist Peter Mckoy Calcium 9.4 (8.4-10.2) mg/dL Disposition Clinical Impression: TIA (transient ischemic attack) Disposition: ADMITTED IP TO THIS HOSP Condition: Fair Referrals: Mario Finley MD [Primary Care Provider] - 1-2 days Decision Time: 22:54
--- NOTE | 2022-07-27 22:03 | CT ---
EXAMINATION TYPE: CT brain wo con DATE OF EXAM: 07/27/2022 COMPARISON: 07/11/2019 HISTORY: slurred speech and confusion. hx of TIA. CT DLP: 1121.4 mGycm Automated exposure control for dose reduction was used. Images of the brain obtained without contrast. There is 2.3 cm irregular area of hypodensity in the medial inferior right posterior fossa related to apparent old cerebellar infarct. There is a similar appearing 2.4 cm area of hypodensity in the late ral right posterior temporal lobe related to old infarct. No mass effect. No midline shift. No sign o f intracranial hemorrhage. The calvarium is intact. Skull base is intact. There is normal aeration of the mastoid sinuses. IMPRESSION: Old right temporal lobe and right cerebellar hemisphere cortical infarct. No acute intracranial abnor mality. No significant change. No evidence of a definite new infarct.
[2022-07-27 22:24] LABS: Basophils % (A) 0 %; Eosinophils # (A) 0.3 k/uL (0-0.7); Eosinophils % (A) 3 %; HCT 39.9 % (39.0-53.0); HGB 12.8 gm/dL (13.0-17.5); Hypochromasia Slight; Lymphocytes # (A) 2.3 k/uL (1.0-4.8); Lymphocytes % (A) 26 %; MCH 28.2 pg (25.0-35.0); MCHC 31.9 g/dL (31.0-37.0); MCV 88.2 fL (80.0-100.0); Mean Platelet Volume 8.9; Monocytes # (A) 0.8 k/uL (0-1.0); Monocytes % (A) 9 %; Neutrophils # (A) 5.1 k/uL (1.3-7.7); Neutrophils % (A) 59 %; Platelet Count 172 k/uL (150-450); RBC 4.53 m/uL (4.30-5.90); RDW 13.8 % (11.5-15.5); WBC 8.7 k/uL (3.8-10.6)
[2022-07-27 22:39] LABS: Calcium 9.4 mg/dL (8.4-10.2); Potassium 3.6 mmol/L (3.5-5.1)
[2022-07-27] MEDS ORDERED: NALOXONE 0.4 MG/ML 1 ML VIAL IV PRN (22:51)
[2022-07-27] MEDS ORDERED: ASPIRIN 81 MG PO STA (22:51)
[2022-07-27 23:39] LABS: Glucose,Whole Blood 119 mg/dL (70-110)
[2022-07-27] MEDS: SODIUM CHLORIDE 0.9% 1,000 ML IV SCH (23:59)
[2022-07-28 03:32] LABS: Glucose,Whole Blood 194 mg/dL (70-110)
--- NOTE | 2022-07-28 11:05 | US ---
EXAMINATION TYPE: US carotid duplex BILAT DATE OF EXAM: 07/28/2022 COMPARISON: US 2019 CLINICAL HISTORY: stroke. Stroke per order. Hx hypertension, hyperlipidemia, occasional smoker, bypas s surgery per patient. TECHNIQUE: Carotid duplex ultrasound examination. Indirect Doppler criteria was utilized. FINDINGS: EXAM MEASUREMENTS: RIGHT: Peak Systolic Velocity (PSV) cm/sec ----- Right CCA: 77.8 ----- Right ICA: 138 ----- Right ECA: 225 ICA/CCA ratio: 1.77 RIGHT: End Diastole cm/sec ----- Right CCA: 5.94 ----- Right ICA: 22.4 ----- Right ECA: 1.66 LEFT: Peak Systolic Velocity (PSV) cm/sec ----- Left CCA: 112 ----- Left ICA: 121 ----- Left ECA: 146 ICA/CCA ratio: 1.08 LEFT: End Diastole cm/sec ----- Left CCA: 8.32 ----- Left ICA: 28.5 ----- Left ECA: 2.49 VERTEBRALS (direction of flow): Right Vertebral: Unable to visualize at this time, limitations due to patient's neck and limited mobi lity. 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 Plaque noted within bilate ral bulbs. Limited due to patient's movement. IMPRESSION: Mild to moderate degree of atherosclerotic plaque with approximately 50-69% stenosis of the proximal right internal carotid artery. Less than 50% stenosis of the left internal carotid artery. Criteria for Assigning % of Stenosis / Diameter reduction (Estimation based on the indirect measurements of the internal carotid artery velocities (ICA PSV). 1. Normal (no stenosis)=ICA PSV < 125 cm/s: ratio < 2.0: ICA EDV<40 cm/s. 2. Less than 50% stenosis=ICA PSV < 125 cm/s: ratio < 2.0: ICA EDV<40 cm/s. 3. 50 to 69% stenosis=ICA PSV of 125 to 230 cm/s: ration 2.0 ? 4.0: ICA EDV 40-100 cm/s. 4. Greater than 70% stenosis to near occlusion= ICA PSV > 230 cm/s: ratio > 4.0: ICA EDV > 100 cm/s. 5. Near occlusion= ICA PSV velocities may be low or undetectable: variable ratio and ICA EDV. 6. Total occlusion=unable to detect flow.
--- NOTE | 2022-07-28 11:39 | P.CNNES ---
History of Present Illness Consult date: 07/28/22 Requesting physician: Al Garibay Reason for Consult: tia History of Present Illness: This is a 66-year-old gentleman with medical history of stroke without any residual deficit, diabetes mellitus, hypertension, hyperlipidemia, kidney transplant who presented emergency department because of garbled speech and confusion. Some of the history is obtained from medical record. It seems that the patient had garbled speech it he was talking with his sister on the phone 1 hour prior to presented to the hospital. He felt his sugars were low and felt he was confused earlier yesterday but he stated he did not check his sugars. His last normal state was about 7:30 PM yesterday and he notices symptoms around 1999 on 07/27/2022. His symptoms resolved by the time he came to the hospital. He denies urinary or bowel incontinence, tongue bite or soreness of tongue. Denies history of seizures. His previous stroke occurred at age [age] years old. He use to follow-up with neurologist that was affiliated with [facility]. Some of his medication consist of Plavix 75 mg daily, Lipitor 40 mg daily, prednisone 5 mg, tamsulosin, tacrolimus. Some of the workup during his hospital visit consisted of: Initial blood pressure is 186/62, heart rate is 78, the temperature and respiratory as pulse ox were within normal limits. His hemoglobin was 12.8 otherwise rest of CBC with differential is unremarkable His initial serum glucose is 71 which is slightly low. CT of the head is reported as old right temporal lobe and right cerebellar hemisphere cortical infarct. No acute intracranial abnormality. No significant change. No evidence of a definite of new infarct. I personally reviewed the CT and I agree with the report EKG is reported as sinus rhythm. ST and deviation and moderate T-wave abnormality, consider inferior ischemia. Review of Systems Review of system: The 12 point system was reviewed and apparent positive and negative per HPI. Past Medical History Past Medical History: CVA/TIA, Diabetes Mellitus, Hyperlipidemia, Hypertension Additional Past Medical History / Comment(s): kidney transplant; stroke at 42 years old History of Any Multi-Drug Resistant Organisms: None Reported Additional Past Surgical History / Comment(s): kidney transplant Past Psychological History: No Psychological Hx Reported Past Alcohol Use History: Occasional Past Drug Use History: None Reported Medications and Allergies Home Medications Medication Instructions Recorded Confirmed Type Atorvastatin [Lipitor] 40 mg PO DAILY 10/08/19 10/25/22 History Clopidogrel [Plavix] 75 mg PO DAILY 07/11/19 07/28/22 History Metoprolol Tartrate [Lopressor] 50 mg PO TID 07/11/19 07/28/22 History Mycophenolate Sodium [Mycophenolic 720 mg PO BID 07/11/19 07/28/22 History Acid] Tacrolimus [Prograf] 1 mg PO BID 07/11/19 07/28/22 History Tamsulosin HCl [Flomax] 0.4 mg PO DAILY 07/11/19 07/28/22 History allopurinoL [Zyloprim] 100 mg PO DAILY 07/11/19 07/28/22 History amLODIPine BESYLATE 10 mg PO DAILY 07/11/19 07/28/22 History hydrALAZINE HCL [Apresoline] 50 mg PO BID 07/11/19 07/28/22 History predniSONE 5 mg PO DAILY 07/11/19 07/28/22 History Insulin Aspart [NovoLOG Flexpen] 35 units SQ AC-BID@0800,1200 07/28/22 07/28/22 History Insulin Aspart [NovoLOG Flexpen] 40 units SQ AC-SUPPER 07/28/22 07/28/22 History Insulin Aspart [NovoLOG Flexpen] See Protocol SQ AC-TID 07/28/22 07/28/22 History Insulin Glargine,Hum.rec.anlog 40 units SQ DAILY 07/28/22 07/28/22 History [Lantus Solostar Pen] Insulin Glargine,Hum.rec.anlog 70 units SQ HS 07/28/22 07/28/22 History [Lantus Solostar Pen] Pantoprazole Sodium [Protonix] 40 mg PO DAILY 07/28/22 07/28/22 History Allergies Allergy/AdvReac Type Severity Reaction Status Date / Time No Known Allergies Allergy Verified 07/28/22 08:43 Physical Examination - Vital Signs Vital Signs: Vital Signs Temp Pulse Resp BP Pulse Ox 07/28/22 06:00 70 16 145/80 94 L 07/28/22 03:26 84 15 165/66 96 07/27/22 21:21 98.2 F 78 16 186/62 97 Intake and Output 07/27/22 07/28/22 07/28/22 22:59 06:59 14:59 Other: Weight 99.79 kg GENERAL: The patient is lying in bed and is not in acute distress. CHEST: The heart rate is regular rate rhythm. No murmurs to auscultation. No carotid bruit bilaterally. LUNG: Clear to auscultation bilaterally no wheezing noted throughout. Not labored breathing. ABDOMEN/GI: Bowel sounds present in all 4 quadrants. No tenderness to palpation throughout. NEUROLOGICAL: Higher mental function: The patient is awake, alert, oriented to self, place and time. Minimally slow following commands. No aphasia and no neglect. Cranial nerves: The pupils are round, equal and reactive to light and accommodation. Visual gage are full to confrontation throughout. Extraocular movement is intact no nystagmus is noted. Facial sensation is normal to touch throughout. The facial strength is normal throughout. Hearing is mildly decreased bilaterally to hand rub. Tongue is midline and moved [id number] without any difficulty. No dysarthria is noted. Shoulder shrug is normal bilaterally. Motor: The strength is 5 over 5 throughout. Normal tone and bulk. Cerebellum: Normal finger to nose bilaterally. Sensation: Sensation is normal to touch throughout. Reflexes (right/left): 2+ throughout. Plantars are downgoing bilaterally. Results - Laboratory Findings CBC and BMP: 07/27/22 22:05 07/27/22 22:05 Abnormal Lab Findings: Abnormal Labs 07/27/22 07/27/22 07/27/22 22:05 22:05 23:38 Hgb 12.8 L Glucose 71 L POC Glucose (mg/dL) 119 H 07/28/22 03:30 Hgb Glucose POC Glucose (mg/dL) 194 H Assessment and Plan Assessment: Transient episode of garbled speech and confusion: Possible due to episode of hypoglycemia. Cannot rule out TIA or possible seizure (cortical irritability from old stroke) Transient encephalopathy seems possible due to hypoglycemia History of old stroke (right temporal and cerebellar) without residual deficit at age [age] years old. Episode of slight hypoglycemia Type 2 diabetes Hypertension History of kidney transplant Plan: I ordered a routine EEG because of his confusion to rule out any underlying current seizure or discharges. If patient has any further episodes recommend prolonged EEG to rule out any underlying seizure activity and that can be coordinated as outpatient. I restart his home medication of Plavix 75 mg daily and Lipitor 40 mg daily for secondary stroke prophylaxis. Ordered carotid duplex, 2D echo, TSH. Consider MRI Brain if any further episodes but for now will hold. Consulted PT, OT and KITMAN Continue neuro checks On cardiac monitoring Please avoid any further hypoglycemic events. For DVT prophylaxis start the patient on subcu heparin 5000 units every hours Patient is to follow up with a neurologist as an outpatient within 1-2 weeks Thank you for the consultation. Time with Patient: Greater than 30
[2022-07-28] MEDS: INSULIN ASPART (NovoLOG) 100 UNIT/ML VIAL SQ SCH (12:47)
[2022-07-28] MEDS: amLODIPine 10 MG TAB PO SCH (12:48)
[2022-07-28] MEDS: TACROLIMUS 1 MG CAP PO SCH ×2 (12:48→21:57)
[2022-07-28] MEDS: predniSONE 5 MG TAB PO SCH (12:48)
[2022-07-28] MEDS: PANTOPRAZOLE 40 MG TABLET PO SCH (12:48)
[2022-07-28] MEDS: CLOPIDOGREL 75 MG TAB PO SCH (12:48)
[2022-07-28] MEDS: MYCOPHENOLATE SODIUM DR 180 MG TABLET.DR PO SCH ×2 (12:49→21:57)
[2022-07-28 13:02] LABS: Glucose,Whole Blood 241 mg/dL (70-110)
[2022-07-28] MEDS: METOPROLOL TARTRATE 50 MG TAB PO SCH ×2 (16:29→21:58)
[2022-07-28] MEDS: HEPARIN SODIUM,PORCINE/PF 5,000 UNIT/0.5 ML SYRINGE SQ SCH (16:29)
[2022-07-28] MEDS ORDERED: INSULIN ASPART (NovoLOG) 100 UNIT/ML VIAL SQ SCH (17:30)
[2022-07-28 17:52] LABS: Glucose,Whole Blood 284 mg/dL (70-110)
[2022-07-28] MEDS ORDERED: INSULIN DETEMIR (LEVEMIR) 100 UNIT/ML SYR SQ SCH (21:00)
[2022-07-28] MEDS ORDERED: ATORVASTATIN 40 MG TAB PO SCH (21:00)
[2022-07-28 21:18] LABS: Glucose,Whole Blood 96 mg/dL (70-110)
[2022-07-28] MEDS: SODIUM CHLORIDE 0.9% 1,000 ML IV SCH (21:59)
--- NOTE | 2022-07-28 22:25 | P.HPIM ---
History of Present Illness H&P Date: 07/28/22 Chief Complaint: Speech difficulty Patient is a 66-year-old male with a known history of hypertension, hyperlipidemia, diabetes type 2 insulin-dependent, history of CVA and history of renal transplant on immunosuppressive therapy presents to ER due to confusion and slurred speech. Patient states that he was at home and sat on the couch and suddenly became confused and started having garbled speech. Patient thought it may be due to his blood sugar but did not check his blood sugar. Patient called his sister and was recommended to go to ER. Patient himself called EMS. His symptoms resolved by the time he arrived to the hospital. Denied any seizure-like activity. No loss of consciousness. No bowel or bladder incontinence. Denied any fever or chills. No recent illnesses. Denied any sick contacts at home. On admission blood pressure 186/60 2 mmHg and heart rate 78 and patient has been afebrile. pulse ox: 95% on room air. Laboratory data showed WBC 8.7 hemoglobin 12.8 and platelets 172 Sodium 137 potassium 3.6 chloride 104 bicarb is 27 BUN 18 and creatinine 1.05 and blood sugar 71 TSH 2.51 Review of Systems Constitutional: Patient denies any fever or chills . no Generalized weakness. Abdomen: Patient denied any nausea or vomiting or abd. pain Cardiovascular: Patient denies any chest pain or short of breath no palpitation s. Respiratory: patient denied any cough . no sputum production. No shortness of breath Neurologic: Patient denied any numbness or tingling headache. Musculoskeletal: Patient denies any complaints of joint swelling or deformity. Skin: Negative Psychiatric: Negative Endocrine: No heat or cold intolerance. No recent weight gain. Genitourinary: No dysuria or hematuria. All other 14 point ROS negative except the above Past Medical History Past Medical History: CVA/TIA, Diabetes Mellitus, Hyperlipidemia, Hypertension Additional Past Medical History / Comment(s): kidney transplant; stroke at 42 years old History of Any Multi-Drug Resistant Organisms: None Reported Additional Past Surgical History / Comment(s): kidney transplant Past Psychological History: No Psychological Hx Reported Past Alcohol Use History: Occasional Past Drug Use History: None Reported Medications and Allergies Home Medications Medication Instructions Recorded Confirmed Type Atorvastatin [Lipitor] 40 mg PO DAILY 07/11/19 07/28/22 History Clopidogrel [Plavix] 75 mg PO DAILY 07/11/19 07/28/22 History Metoprolol Tartrate [Lopressor] 50 mg PO TID 07/11/19 07/28/22 History Mycophenolate Sodium [Mycophenolic 720 mg PO BID 07/11/19 07/28/22 History Acid] Tacrolimus [Prograf] 1 mg PO BID 07/11/19 07/28/22 History Tamsulosin HCl [Flomax] 0.4 mg PO DAILY 07/11/19 07/28/22 History allopurinoL [Zyloprim] 100 mg PO DAILY 07/11/19 07/28/22 History amLODIPine BESYLATE 10 mg PO DAILY 07/11/19 07/28/22 History hydrALAZINE HCL [Apresoline] 50 mg PO BID 07/11/19 07/28/22 History predniSONE 5 mg PO DAILY 07/11/19 07/28/22 History Insulin Aspart [NovoLOG Flexpen] 35 units SQ AC-BID@0800,1200 07/28/22 07/28/22 History Insulin Aspart [NovoLOG Flexpen] 40 units SQ AC-SUPPER 07/28/22 07/28/22 History Insulin Aspart [NovoLOG Flexpen] See Protocol SQ AC-TID 07/28/22 07/28/22 History Insulin Glargine,Hum.rec.anlog 40 units SQ DAILY 07/28/22 07/28/22 History [Lantus Solostar Pen] Insulin Glargine,Hum.rec.anlog 70 units SQ HS 07/28/22 07/28/22 History [Lantus Solostar Pen] Pantoprazole Sodium [Protonix] 40 mg PO DAILY 07/28/22 07/28/22 History Allergies Allergy/AdvReac Type Severity Reaction Status Date / Time No Known Allergies Allergy Verified 07/28/22 08:43 Physical Exam Vitals: Vital Signs Temp Pulse Resp BP Pulse Ox 07/28/22 06:00 70 16 145/80 94 L 07/28/22 03:26 84 15 165/66 96 07/27/22 21:21 98.2 F 78 16 186/62 97 Intake and Output 07/27/22 07/28/22 07/28/22 22:59 06:59 14:59 Other: Weight 99.79 kg PHYSICAL EXAMINATION: Patient is lying in the bed comfortably, no acute distress, awake alert and oriented.. HEENT: Normocephalic. Neck is supple. Pupils reactive. Nostrils clear. Oral cavity is moist. Neck reveals no JVD, carotid bruits, or thyromegaly. CHEST EXAMINATION: Trachea is central. Symmetrical expansion. Lung gage clear to auscultation and percussion. CARDIAC: Normal S1, S2 with no gallops. No murmurs ABDOMEN: Soft. Bowel sounds present. Nontender. No organomegaly. No abdominal bruits. Extremities: reveal no edema. No clubbing or cyanosis Neurologically awake, alert, oriented x3 with well-coordinated movements. No focal deficits noted Skin: No rash or skin lesions. Psychiatric: Coperative. Nonsuicidal, Musculoskeletal: No joint swelling or deformity. Normal range of motion. Results CBC & Chem 7: 07/27/22 22:05 07/27/22 22:05 Labs: Abnormal Lab Results - Last 24 Hours (Table) 07/27/22 07/27/22 07/27/22 Range/Units 22:05 22:05 23:38 Hgb 12.8 L (13.0-17.5) gm/dL Glucose 71 L (74-99) mg/dL POC Glucose (mg/dL) 119 H (70-110) mg/dL 07/28/22 Range/Units 03:30 Hgb (13.0-17.5) gm/dL Glucose (74-99) mg/dL POC Glucose (mg/dL) 194 H (70-110) mg/dL Thrombosis Risk Factor Assmnt - DVT/VTE Prophylaxis DVT/VTE Prophylaxis: Pharmacologic Prophylaxis ordered Assessment and Plan Assessment: Transient confusion and garbled speech. Possibly due to hypoglycemic episode. Rule out acute CVA/TIA History of CVA without residual deficit. Diabetes type 2 insulin-dependent Hypertension History of renal transplant on immunosuppressants-Prograf, mycophenolate and prednisone. BPH GI and DVT prophylaxis Plan: Patient will be continued on telemetry monitoring. Continue with Plavix and statins. Patient will be started back on home dose of Levemir and preprandial insulin and monitor for hypoglycemic episodes. Titrate dose as needed. Stroke work-up including 2D echocardiogram, carotid duplex, TSH, B12 and folate levels will be ordered and neurology is on board. PT OT and INSTRUMENTATION AND CONTROLS TECHNICIAN consult. Continue with neurochecks every 4 hourly. Continued home medications. Follow-up closely. Time with Patient: Greater than 30
[2022-07-29] MEDS: HEPARIN SODIUM,PORCINE/PF 5,000 UNIT/0.5 ML SYRINGE SQ SCH ×2 (01:48→08:37)
--- NOTE | 2022-07-29 06:20 | EEG ---
ELECTROENCEPHALOGRAM REPORT CLINICAL HISTORY: This is a 66-year-old gentleman with episodes of confusion. The video EEG is obtained to evaluate for seizure epileptiform activity. RELEVANT MEDICATION: The patient is not on any antiepileptic drugs. EEG TYPE: A routine 21-channel EEG is performed with video using the 10/20 electrode placement system. DESCRIPTION: Wakefulness and drowsiness are obtained. During awake state, the posterior- dominant rhythm consists of [id number] voltage of 8 to 8.5 hertz activity that is well modulated, well sustained. There is no physiological stage 2 sleep architecture seen. There is no focal slowing. Interictal and ictal is none. ACTIVATION PROCEDURE: Photic stimulation did not evoke a posterior driving response. There is no abnormality during the photic stimulation. Hyperventilation is not performed. CLINICAL INTERPRETATION: This is a normal routine EEG. There is no focal slowing, epileptiform discharge or seizure on the EEG. Clinical correlation is recommended. BRYCE / VONNIE: [id number] / [id number]
[2022-07-29] MEDS: PANTOPRAZOLE 40 MG TABLET PO SCH (06:38)
[2022-07-29 08:24] VITALS: BP 156/67; PULSE 68; RESP 18; TEMP 98.1
[2022-07-29] MEDS: amLODIPine 10 MG TAB PO SCH (08:36)
[2022-07-29] MEDS: CLOPIDOGREL 75 MG TAB PO SCH (08:36)
[2022-07-29] MEDS: INSULIN ASPART (NovoLOG) 100 UNIT/ML VIAL SQ SCH ×2 (08:36→12:59)
[2022-07-29] MEDS: METOPROLOL TARTRATE 50 MG TAB PO SCH (08:36)
[2022-07-29] MEDS: MYCOPHENOLATE SODIUM DR 180 MG TABLET.DR PO SCH (08:37)
[2022-07-29] MEDS: TACROLIMUS 1 MG CAP PO SCH (08:38)
[2022-07-29] MEDS: predniSONE 5 MG TAB PO SCH (08:38)
[2022-07-29 09:00] LABS: Basophils # (A) 0.02 X 10*3/uL (0.00-0.10); Basophils % (A) 0.2 %; Eosinophils # (A) 0.25 X 10*3/uL (0.04-0.35); Eosinophils % (A) 2.9 %; HCT 37.9 % (39.6-50.0); HGB 12.1 g/dL (13.0-17.0); Immature Grans, Automated 0.3 %; Lymphocytes # (A) 2.05 X 10*3/uL (0.90-5.00); Lymphocytes % (A) 23.8 %; MCH 28.3 pg (27.0-32.0); MCHC 31.9 g/dL (32.0-37.0); MCV 88.6 fL (80.0-97.0); Mean Platelet Volume 11.6 fL (9.5-12.2); Monocytes % (A) 12.8 %; NRBC Per 100 WBC 0 /100 WBCS (0.0-0.0); Neutrophils # (A) 5.17 X 10*3/uL (1.80-7.70); Platelet Count 177 X 10*3/uL (140-440); RBC 4.28 X 10*6/uL (4.40-5.60); RDW 13.9 % (11.5-14.5); WBC 8.62 X 10*3/uL (4.50-10.00)
[2022-07-29] MEDS ORDERED: allopurinoL 100 MG TAB PO SCH (09:00)
[2022-07-29] MEDS ORDERED: INSULIN DETEMIR (LEVEMIR) 100 UNIT/ML SYR SQ SCH (09:00)
[2022-07-29] MEDS ORDERED: TAMSULOSIN 0.4 MG CAP.ER.24H PO SCH (09:00)
[2022-07-29 09:14] LABS: African American GFR (CKD) 73.1 (60.0-200.0); Anion Gap 9.1 mmol/L (10.00-18.00); Blood Urea Nitrogen 15.6 mg/dL (9.0-27.0); Calcium 9.5 mg/dL (8.7-10.3); Carbon Dioxide 24.3 mmol/L (20.0-27.5); Non-African American GFR(CKD) 63.1 (60.0-200.0); Potassium 4.2 mmol/L (3.5-5.5)
--- NOTE | 2022-07-29 12:05 | P.PN ---
Subjective Progress Note Date: 08/29/22 The patient seen at bedside and he feels about the same and denies any further neurological issues or any further deficits. He feels at baseline. Objective - Vital Signs Vital signs: Vital Signs Temp 98.1 F 07/29/22 07:00 Pulse 68 07/29/22 07:00 Resp 18 07/29/22 07:00 BP 156/67 07/29/22 07:00 Pulse Ox 94 L 07/29/22 07:00 FiO2 Intake & Output 07/28/22 07/29/22 07/29/22 18:59 06:59 18:59 Intake Total 125 Balance 125 Weight 99.79 kg Intake: Oral 125 Other: Voiding Method Toilet # Voids 1 - Exam GENERAL: The patient is lying in bed and is not in acute distress. NEUROLOGICAL: Higher mental function: The patient is awake, alert, oriented to self, place and time. Minimally slow following commands. No aphasia and no neglect. Cranial nerves: The pupils are round, equal and reactive to light and accommodation. Visual gage are full to confrontation throughout. Extraocular movement is intact no nystagmus is noted. Facial sensation is normal to touch throughout. The facial strength is normal throughout. Hearing is mildly decreased bilaterally to hand rub. Tongue is midline and moved [id number] without any difficulty. No dysarthria is noted. Shoulder shrug is normal bilaterally. Motor: The strength is 5 over 5 throughout. Normal tone and bulk. Cerebellum: Normal finger to nose bilaterally. Sensation: Sensation is normal to touch throughout. Reflexes (right/left): 2+ throughout. Plantars are downgoing bilaterally. Some of the workup during his hospital visit consisted of: His initial serum glucose is 71 which is slightly low. TSH is 2.510 Carotid duplex was reported as mild to moderate degree of atherosclerotic plaque with approximately 50-69% stenosis of the proximal right internal carotid artery. Less than 50% stenosis in the left internal carotid artery. CT of the head is reported as old right temporal lobe and right cerebellar hemisphere cortical infarct. No acute intracranial abnormality. No significant change. No evidence of a definite of new infarct. I personally reviewed the CT and I agree with the report. Routine EEG is normal. There is no focal slowing, epileptiform discharges or seizure in the EEG. EKG is reported as sinus rhythm. ST and deviation and moderate T-wave abnormality, consider inferior ischemia. - Labs CBC & Chem 7: 07/29/22 04:48 07/29/22 04:48 Labs: Abnormal Lab Results - Last 24 Hours (Table) 07/28/22 07/28/22 07/29/22 Range/Units 13:00 17:51 04:48 RBC 4.28 L (4.40-5.60) X 10*6/uL Hgb 12.1 L (13.0-17.0) g/dL Hct 37.9 L (39.6-50.0) % MCHC 31.9 L (32.0-37.0) g/dL Monocytes # 1.10 H (0.20-1.00) X 10*3/uL Anion Gap (10.00-18.00) mmol/L POC Glucose (mg/dL) 241 H 284 H (70-110) mg/dL 07/29/22 Range/Units 04:48 RBC (4.40-5.60) X 10*6/uL Hgb (13.0-17.0) g/dL Hct (39.6-50.0) % MCHC (32.0-37.0) g/dL Monocytes # (0.20-1.00) X 10*3/uL Anion Gap 9.10 L (10.00-18.00) mmol/L POC Glucose (mg/dL) (70-110) mg/dL Assessment and Plan Assessment: Transient episode of garbled speech and confusion: Possible due to episode of hypoglycemia. 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 Right ICA stenosis 50-69% on duplex Episode of slight hypoglycemia Type 2 diabetes Hypertension History of kidney transplant Plan: Routine EEG is normal. If patient has any further episodes recommend prolonged EEG to rule out any underlying seizure activity and that can be coordinated as outpatient. Consider MRI Brain if any further episodes but for now will hold. Continue his home medication of Plavix 75 mg daily and Lipitor 40 mg daily for secondary stroke prophylaxis. Pending 2D echo. Vascular surgery team is consulted for Right ICA stenosis. Consulted PT, OT and WOOD TURNER Continue neuro checks On cardiac monitoring Please avoid any further hypoglycemic events. For DVT prophylaxis On subcu heparin 5000 units every hours Patient is to follow up with a neurologist as an outpatient within 1-2 weeks The plan is discussed with the patient. Time with Patient: Less than 30
[2022-07-29 12:57] LABS: Glucose,Whole Blood 307 mg/dL (70-110)
--- NOTE | 2022-08-01 09:22 | P.DS ---
Providers Date of admission: 07/27/22 22:53 Expected date of discharge: 07/29/22 Attending physician: Edward Patino Consults: 07/27/22 22:51 Consult Physician Routine Consulting Provider: Lew Ly Consult Reason/Comments: tia Do you want consulting provider notified?: Yes 07/28/22 11:37 Consult Physician Routine Consulting Provider: Edel Cintron Consult Reason/Comments: right ica stenosis. Do you want consulting provider notified?: Yes Primary care physician: Mario Finley Hospital Course: Final diagnosis Transient confusion and garbled speech. Possibly due to hypoglycemic episode. Ruled out acute CVA/TIA History of CVA without residual deficit. Diabetes type 2 insulin-dependent, uncontrolled with hypoglycemia and hyperglycemia Hypertension History of renal transplant on immunosuppressants-Prograf, mycophenolate and prednisone. BPH GI and DVT prophylaxis Discharge disposition Patient is being discharged in a stable condition with guarded prognosis to [facility]. Patient will follow-up with Dr. Finley in the outpatient setting upon discharge. Patient is to continue with current medications as prescribed. Patient to follow up neurology and endocrine this week. Total time taken is greater than 35 minutes. Hospital course This is a 66-year-old male who was recently admitted with confusion and garbled speech and underwent neurological workup. Acute testing was negative and patient refused echo reporting he had one done previously and couldn't afford the cost. Patient found to have poorly controlled diabetes and compliance with medications and follow up. Adjustments made to insulins. Patient was seen by neurology and suggest follow up with your neurologist this week. Continue with prescribed medications. Recommend close glucose monitoring and keeping a diary of all readings for follow up. Currently no reports of chest pain, shortness of breath, or palpitations. Patient is afebrile. No reports of nausea or vomiting and patient is tolerating diet. Patient will be dischared home today. Guarded prognosis Physical exam: Gen: This is a 66year old male who is awake alert and oriented x3. Well developed, well nourished HEENT: Head is atraumatic, normocephalic. Pupils equal, round. Sclerae is anicteric. NECK: Supple. No JVD. No lymphadenopathy. No thyromegaly. LUNGS: Clear to auscultation. No wheezes or rhonchi. No intercostal ret ractions. HEART: Regular rate and rhythm. No murmur. ABDOMEN: Soft. Obese Bowel sounds are present. No masses. No tenderness. EXTREMITIES: No pedal edema. No calf tenderness. NEUROLOGICAL: Patient is awake, alert and oriented x3. Cranial nerves 2 through 12 are grossly intact. Please refer to medication reconciliation sheet for a list of medications. The impression and plan of care has been dictated by Mary Galdamez, Nurse Practitioner as directed. Dr. Joel MD I have performed a history and examination and MDM of this patient, discussed the same with the dictator, and agree with the dictator's assessment and plan as written ,documented as a scribe. Based on total visit time, I have performed more than 50% of the visit. Patient Condition at Discharge: Fair Plan - Discharge Summary Discharge Rx Participant: No New Discharge Prescriptions: Continue Tamsulosin HCl [Flomax] 0.4 mg PO DAILY Tacrolimus [Prograf] 1 mg PO BID predniSONE 5 mg PO DAILY Mycophenolate Sodium [Mycophenolic Acid] 720 mg PO BID hydrALAZINE HCL [Apresoline] 50 mg PO BID Metoprolol Tartrate [Lopressor] 50 mg PO TID amLODIPine BESYLATE 10 mg PO DAILY Clopidogrel [Plavix] 75 mg PO DAILY Atorvastatin [Lipitor] 40 mg PO DAILY allopurinoL [Zyloprim] 100 mg PO DAILY Pantoprazole Sodium [Protonix] 40 mg PO DAILY Insulin Aspart [NovoLOG Flexpen] 35 units SQ AC-BID@0800,1200 Insulin Aspart [NovoLOG Flexpen] See Protocol SQ AC-TID Changed Insulin Glargine,Hum.rec.anlog [Lantus Solostar Pen] 70 units SQ DAILY #0 Discontinued Insulin Aspart [NovoLOG Flexpen] 40 units SQ AC-SUPPER Insulin Glargine,Hum.rec.anlog [Lantus Solostar Pen] 40 units SQ DAILY Discharge Medication List Atorvastatin [Lipitor] 40 mg PO DAILY 07/11/19 [History] Clopidogrel [Plavix] 75 mg PO DAILY 07/11/19 [History] Metoprolol Tartrate [Lopressor] 50 mg PO TID 07/11/19 [History] Mycophenolate Sodium [Mycophenolic Acid] 720 mg PO BID 07/11/19 [History] Tacrolimus [Prograf] 1 mg PO BID 07/11/19 [History] Tamsulosin HCl [Flomax] 0.4 mg PO DAILY 07/11/19 [History] allopurinoL [Zyloprim] 100 mg PO DAILY 07/11/19 [History] amLODIPine BESYLATE 10 mg PO DAILY 07/11/19 [History] hydrALAZINE HCL [Apresoline] 50 mg PO BID 07/11/19 [History] predniSONE 5 mg PO DAILY 07/11/19 [History] Insulin Aspart [NovoLOG Flexpen] 35 units SQ AC-BID@0800,1200 07/28/22 [History] Insulin Aspart [NovoLOG Flexpen] See Protocol SQ AC-TID 07/28/22 [History] Pantoprazole Sodium [Protonix] 40 mg PO DAILY 07/28/22 [History] Insulin Glargine,Hum.rec.anlog [Lantus Solostar Pen] 70 units SQ DAILY #0 07/29/22 [Rx] Follow up Appointment(s)/Referral(s): Markell Jung MD [REFERRING] - 1 Week Mario Finley MD [Primary Care Provider] - 1-2 days Deysi Gayle MD [Medical Doctor] - 1 Week Edel Cintron DO [STAFF PHYSICIAN] - 1 Week Activity/Diet/Wound Care/Special Instructions: Activity Limited until follow-up Follow-up with primary care provider on discharge Follow-up with neurologist in 1-2 weeks Follow up with quality lab technician Continue monitoring blood sugars closely and keep a diary of all readings for primary care follow-up Note the changes in insulin Follow heart healthy diabetic diet Recommend outpatient vascular surgery consulted Take medications as prescribed Discharge Disposition: HOME SELF-CARE
== END 2022-07-29 14:13 | disposition home or self-care (01) ==
LOC: EC 21:18 → 6NMEDSUR 22:53
PROVIDERS: ADMIT Hospitalist; ATTEND Hospitalist
DX: R41.0 Disorientation, unspecified (principal); I65.23 Occlusion and stenosis of bilateral carotid arteries; G93.40 Encephalopathy, unspecified; E11.649 Type 2 diabetes mellitus with hypoglycemia without coma; E11.65 Type 2 diabetes mellitus with hyperglycemia; E78.5 Hyperlipidemia, unspecified; I10 Essential (primary) hypertension; D84.821 Immunodeficiency due to drugs; N40.0 Benign prostatic hyperplasia without lower urinary tract symptoms; Z86.73 Personal history of transient ischemic attack (TIA), and cerebral infarction without residual deficits; Z79.899 Other long term (current) drug therapy; Z79.02 Long term (current) use of antithrombotics/antiplatelets; Z79.4 Long term (current) use of insulin; Z79.84 Long term (current) use of oral hypoglycemic drugs; Z94.0 Kidney transplant status; Z79.60 Long term (current) use of unspecified immunomodulators and immunosuppressants; Z91.14 Patient's other noncompliance with medication regimen; Z91.199 Patient's noncompliance with other medical treatment and regimen due to unspecified reason
CPT/HCPCS: 96372; 99285; 36415; 95816; 93005; 97166; 92610; 92523; 80048 ×2; 84443; 85025 ×2; 83036; 93880; 70450; G0378 ×3; J7507 ×2; J7518 ×2; J7512 ×2; J1644

== ENCOUNTER → 2022-08-14 | Outpatient (CLI) | payer MEDICARE ==
[2022-08-14 15:46] LABS: Appearance,Urine Clear (Clear); Bacteria,Urine Rare /hpf; Bilirubin,Urine Negative (Negative); Blood,Urine Trace (Negative); Color,Urine Yellow; Glucose,Urine (UA) 2+ (Negative); Hyaline Casts,Urine 10 /lpf (0-2); Ketones,Urine Negative (Negative); Leukocyte Esterase,Urine Negative (Negative); Mucus,Urine Rare /hpf; Nitrite,Urine Negative (Negative); Protein,Urine 3+ (Negative); RBC,Urine 2 /hpf (0-5); Specific Gravity,Urine 1.022 (1.001-1.035); Squamous Epithelial Cell,Urine <1 /hpf (0-4); WBC,Urine 1 /hpf (0-5)
[2022-08-14 15:52] LABS: Creatinine,Urine Random 159.1 mg/dL
[2022-08-14 23:29] LABS: Basophils # (A) 0.03 X 10*3/uL (0.00-0.10); Basophils % (A) 0.4 %; Eosinophils # (A) 0.31 X 10*3/uL (0.04-0.35); Eosinophils % (A) 3.8 %; HCT 39.7 % (39.6-50.0); HGB 11.9 g/dL (13.0-17.0); Immature Grans, Automated 0.2 %; Lymphocytes # (A) 1.53 X 10*3/uL (0.90-5.00); Lymphocytes % (A) 18.7 %; MCH 26.9 pg (27.0-32.0); MCV 89.8 fL (80.0-97.0); Mean Platelet Volume 10.8 fL (9.5-12.2); Monocytes # (A) 1.02 X 10*3/uL (0.20-1.00); Monocytes % (A) 12.4 %; NRBC Per 100 WBC 0 /100 WBCS (0.0-0.0); Neutrophils # (A) 5.29 X 10*3/uL (1.80-7.70); Neutrophils % (A) 64.5 %; Platelet Count 177 X 10*3/uL (140-440); RBC 4.42 X 10*6/uL (4.40-5.60); RDW 13.5 % (11.5-14.5)
[2022-08-15 00:41] LABS: AST 13 U/L (14-35); Albumin 3.1 g/dL (3.8-4.9); Magnesium 1.6 mg/dL (1.5-2.4)
[2022-08-15 00:45] LABS: African American GFR (CKD) 79.5 (60.0-200.0); Blood Urea Nitrogen 13.1 mg/dL (9.0-27.0); Calcium 9.2 mg/dL (8.7-10.3); Carbon Dioxide 25.5 mmol/L (20.0-27.5); Chloride 103 mmol/L (96-109); Glucose 234 mg/dL (70-110); Non-African American GFR(CKD) 68.6 (60.0-200.0); Potassium 4.2 mmol/L (3.5-5.5); Sodium 139 mmol/L (135-145)
[2022-08-15 00:47] LABS: Protein, Total 5.5 g/dL (6.2-8.2)
[2022-08-15 01:25] LABS: ALT 15 U/L (10-49); Alkaline Phosphatase 94 U/L (41-126); Chol/HDL Ratio 4.45 Ratio; LDL Cholesterol,Calculated 76.9 mg/dL (0.0-131.0)
[2022-08-17 14:09] LABS: Albumin 2.63 g/dL (3.80-4.90); Gamma Globulin 0.95 g/dL (0.70-1.50)
== END | disposition home or self-care (01) ==
LOC: LABWHC1 15:04
PROVIDERS: ATTEND Nurse Practitioner
DX: Z51.81 Encounter for therapeutic drug level monitoring (principal); Z94.0 Kidney transplant status; Z79.899 Other long term (current) drug therapy; R73.01 Impaired fasting glucose; E21.3 Hyperparathyroidism, unspecified
CPT/HCPCS: 36415; 80051; 80061; 80197; 81001; 82040; 82247; 82306; 82310; 82565; 82570; 82947; 83735; 83970; 84075; 84100; 84156; 84165; 84450; 84460; 84520; 85025

== ENCOUNTER → 2022-09-07 | Outpatient (CLI) | payer MEDICARE ==
[2022-09-07 15:18] LABS: Creatinine,Urine Random 95.7 mg/dL
[2022-09-07 15:31] LABS: Protein/Creatinine Ratio,Urine 4.922
[2022-09-07 18:07] LABS: Basophils # (A) 0.04 X 10*3/uL (0.00-0.10); Basophils % (A) 0.6 %; Eosinophils # (A) 0.22 X 10*3/uL (0.04-0.35); Eosinophils % (A) 3.3 %; Immature Grans, Automated 0.5 %; Lymphocytes # (A) 2.24 X 10*3/uL (0.90-5.00); Lymphocytes % (A) 33.6 %; MCHC 30.2 g/dL (32.0-37.0); MCV 89.2 fL (80.0-97.0); Monocytes # (A) 0.87 X 10*3/uL (0.20-1.00); Monocytes % (A) 13.1 %; NRBC Per 100 WBC 0 /100 WBCS (0.0-0.0); Neutrophils # (A) 3.26 X 10*3/uL (1.80-7.70); Neutrophils % (A) 48.9 %; Platelet Count 163 X 10*3/uL (140-440); RBC 4.82 X 10*6/uL (4.40-5.60); RDW 14.6 % (11.5-14.5); WBC 6.66 X 10*3/uL (4.50-10.00)
[2022-09-07 18:37] LABS: Albumin 3.4 g/dL (3.8-4.9); Magnesium 1.7 mg/dL (1.5-2.4); Total Bilirubin 0.4 mg/dL (0.30-1.20)
[2022-09-07 19:20] LABS: African American GFR (CKD) 73.1 (60.0-200.0); Anion Gap 10.4 mmol/L (10.00-18.00); Blood Urea Nitrogen 15.6 mg/dL (9.0-27.0); Calcium 9.7 mg/dL (8.7-10.3); Carbon Dioxide 22.6 mmol/L (20.0-27.5); Non-African American GFR(CKD) 63.1 (60.0-200.0); Phosphorus 2.9 mg/dL (2.4-5.1); Potassium 4.4 mmol/L (3.5-5.5)
[2022-09-07 20:05] LABS: Appearance,Urine Clear (Clear); Bilirubin,Urine Negative (Negative); Blood,Urine Negative (Negative); Color,Urine Yellow (Yellow); Ketones,Urine Negative (Negative); Nitrite,Urine Negative (Negative); PH, Urine 5.5 (5.0-8.0); Specific Gravity,Urine 1.017 (1.001-1.030)
[2022-09-07 20:13] LABS: Bacteria,Urine None Seen /HPF (None Seen)
== END | disposition home or self-care (01) ==
LOC: LABWHC1 13:22
PROVIDERS: ATTEND Nurse Practitioner
DX: Z51.81 Encounter for therapeutic drug level monitoring (principal); Z94.0 Kidney transplant status; Z79.899 Other long term (current) drug therapy; R73.01 Impaired fasting glucose; E21.3 Hyperparathyroidism, unspecified
CPT/HCPCS: 36415; 80051; 80197; 81001; 82040; 82247; 82306; 82310; 82565; 82570; 83735; 83970; 84075; 84100; 84155; 84156; 84450; 84460; 84520; 85025

== ENCOUNTER → 2022-09-30 | Outpatient (CLI) | payer MEDICARE ==
--- NOTE | 2022-09-30 17:22 | P.SLEEP ---
History of Present Illness DATE: 09/30/2022 CONSULTATION/NEW PATIENT EVALUATION HISTORY OF PRESENT ILLNESS/SLEEP-WAKE EVALUATION: 67-year-old gentleman had been evaluated in the sleep center for possible obstructive sleep apnea hypopnea syndrome. SLEEP SCHEDULE: Usually sleep schedule from 11 PM to 8 AM on weekdays and from midnight until 10 AM on weekend. FALLING ASLEEP: Sometimes patient has problems with falling asleep, although no TV in bedroom DURING SLEEP: [] Patient snores and wakes up from sleep 2 times with nocturia. Positive history of awakenings with dry mouth, restless legs. Positive history of sleep talking.No history of hypnogogical hallucinations, sleep paralysis, or cataplexy. DURING THE DAY/WAKE STATE: In the morning patient wake up tired, falling asleep during the day. Painter sleepiness scale is 12, which indicates sleepiness. Patient may fell asleep afternoon. PAST MEDICAL HISTORY: Hypertension, history of stroke at age of 42, diabetes mellitus, restless leg symptoms, coronary artery disease, sinuses problems. PAST SURGICAL HISTORY: CABG, cardiac wealth replaced, kidney transplant. MEDICATIONS: Insulin, Flomax, Zemplar, Tacrolimus, lisinopril, amlodipine, allopurinol, furosemide 20 mg once a day, amiodarone, Protonix, atorvastatin. SOCIAL HISTORY: Positive for occasional smoking, alcohol consumption occasional. FAMILY HISTORY: Hypertension, diabetes, heart problems. REVIEW OF SYSTEMS: Snoring, awakenings from sleep, feeling sleepiness. No fevers. No double vision. No recent chest pain. No shortness of breath. No abdominal pain. No bleeding episodes. No blood in urine. No seizure episodes. PHYSICAL EXAMINATION: GENERAL: A pleasant patient without any distress. VITAL SIGNS: BP 164/72, HR 72, RR 18, weight 211.6 pounds, height 5 foot 8 inches, body mass index 32.0. HEENT: PERRLA, EOMI. Evaluation of oropharynx showed tongue protrudes midline, low position of soft palate Mallampati 3. NECK: Supple. No JVD. Thyroid is not palpable. 19 inches in circumference. LUNGS: Clear to percussion and to auscultation. Good air exchange. No wheezing or rhonchi. HEART: S1, S2 regular. No murmurs, gallops or rubs. ABDOMEN: Soft and nontender. Bowel sounds are present. No organomegaly appreciated. EXTREMITIES: No clubbing or cyanosis. INSTRUMENTATION ENGINEERING TECHNICIAN: Awake, alert, and oriented x3. Cranial nerves 2 to 7 intact. There is no fasciculation or atrophy noted. No focal deficits observed. ASSESSMENT: 1. Snoring, multiple awakenings from sleep, low position of soft palate Mallampati 3, wide neck 19 inches in circumference, sleepiness Painter Sleepiness Scale increased to 12. Obstructive sleep apnea hypopnea syndrome. 2. Hypertension. 3. Status post stroke at age of 42. 4. Status post kidney transplant. 5 diabetes mellitus. 6 . Restless leg symptoms. 7. Coronary artery disease status post CABG. 8. Obesity body mass index 32 PLAN: 1. Home sleep apnea test for evaluation of patient's breathing during sleep. 2. CPAP/BiPAP titration if sleep study confirms obstructive sleep apnea- hypopnea syndrome. 3. Preferable position during sleep on the side. 4. No driving if patient feels any sleepiness. Patient is aware of civil and criminal liability for unsafe driving. 5. Sleep hygiene with regular sleep time for at least 7.5-8 hours. 6. Watching and losing weight. Thank you very much for referring this patient for consultation. Sincerely, Velasquez Churchill MD, PhD, FAASM. Diplomat of [place] [employer], Sleep Medicine Board by [place] [employer] [place] [employer] Reading Teacher of [facility] [place] Past Medical History Past Medical History: CVA/TIA, Diabetes Mellitus, Hyperlipidemia, Hypertension Additional Past Medical History / Comment(s): kidney transplant; stroke at 42 years old History of Any Multi-Drug Resistant Organisms: None Reported Additional Past Surgical History / Comment(s): kidney transplant Past Psychological History: No Psychological Hx Reported Past Alcohol Use History: Occasional Past Drug Use History: None Reported Medications and Allergies Home Medications Medication Instructions Recorded Confirmed Type Atorvastatin [Lipitor] 40 mg PO DAILY 07/11/19 07/28/22 History Clopidogrel [Plavix] 75 mg PO DAILY 07/11/19 07/28/22 History Metoprolol Tartrate [Lopressor] 50 mg PO TID 07/11/19 07/28/22 History Mycophenolate Sodium [Mycophenolic 720 mg PO BID 07/11/19 07/28/22 History Acid] Tacrolimus [Prograf] 1 mg PO BID 07/11/19 07/28/22 History Tamsulosin HCl [Flomax] 0.4 mg PO DAILY 07/11/19 07/28/22 History allopurinoL [Zyloprim] 100 mg PO DAILY 07/11/19 07/28/22 History amLODIPine BESYLATE 10 mg PO DAILY 07/11/19 07/28/22 History hydrALAZINE HCL [Apresoline] 50 mg PO BID 07/11/19 07/28/22 History predniSONE 5 mg PO DAILY 07/11/19 07/28/22 History Insulin Aspart [NovoLOG Flexpen] 35 units SQ AC-BID@0800,1200 07/28/22 07/28/22 History Insulin Aspart [NovoLOG Flexpen] See Protocol SQ AC-TID 07/28/22 07/28/22 History Pantoprazole Sodium [Protonix] 40 mg PO DAILY 07/28/22 07/28/22 History Insulin Glargine,Hum.rec.anlog 70 units SQ DAILY #0 07/29/22 07/28/22 Rx [Lantus Solostar Pen] Allergies Allergy/AdvReac Type Severity Reaction Status Date / Time No Known Allergies Allergy Verified 07/28/22 08:43 Sleep Note - Sleep Note Sleep Note: Temperature: Pulse Rate: Respiratory Rate: Blood Pressure: SpO2: Height: Weight: BMI: Neck Circumference:
== END ==
LOC: SLEEP 15:10
PROVIDERS: ATTEND Internal Medicine
DX: G47.33 Obstructive sleep apnea (adult) (pediatric) (principal); I10 Essential (primary) hypertension; Z98.890 Other specified postprocedural states; E11.9 Type 2 diabetes mellitus without complications; E66.9 Obesity, unspecified; Z68.32 Body mass index [BMI] 32.0-32.9, adult; Z95.1 Presence of aortocoronary bypass graft; G25.81 Restless legs syndrome; Z79.4 Long term (current) use of insulin; Z79.899 Other long term (current) drug therapy; F17.200 Nicotine dependence, unspecified, uncomplicated
CPT/HCPCS: 99211

== ENCOUNTER → 2022-12-18 | Outpatient (CLI) | payer MEDICARE ==
[2022-12-18 18:38] LABS: Basophils # (A) 0.03 X 10*3/uL (0.00-0.10); Basophils % (A) 0.4 %; Eosinophils # (A) 0.21 X 10*3/uL (0.04-0.35); Eosinophils % (A) 2.8 %; HCT 35.1 % (39.6-50.0); HGB 10.9 g/dL (13.0-17.0); Immature Grans, Automated 0.4 %; Lymphocytes # (A) 2.05 X 10*3/uL (0.90-5.00); Lymphocytes % (A) 27.4 %; MCH 28.3 pg (27.0-32.0); MCHC 31.1 g/dL (32.0-37.0); MCV 91.2 fL (80.0-97.0); Mean Platelet Volume 10.8 fL (9.5-12.2); Monocytes # (A) 0.99 X 10*3/uL (0.20-1.00); Monocytes % (A) 13.2 %; NRBC Per 100 WBC 0 /100 WBCS (0.0-0.0); Neutrophils # (A) 4.17 X 10*3/uL (1.80-7.70); Neutrophils % (A) 55.8 %; Platelet Count 188 X 10*3/uL (140-440); RBC 3.85 X 10*6/uL (4.40-5.60); RDW 14.5 % (11.5-14.5); WBC 7.48 X 10*3/uL (4.50-10.00)
[2022-12-18 19:20] LABS: ALT 16 U/L (10-49); AST 17 U/L (14-35); African American GFR (CKD) 60.3 (60.0-200.0); Albumin 3.8 g/dL (3.8-4.9); Albumin/Globulin Ratio 1.41 (1.60-3.17); Alkaline Phosphatase 75 U/L (41-126); BUN/Creat Ratio 19.57 Ratio (12.00-20.00); Blood Urea Nitrogen 27.4 mg/dL (9.0-27.0); Carbon Dioxide 24.5 mmol/L (20.0-27.5); Chloride 105 mmol/L (96-109); Chol/HDL Ratio 3.72 Ratio; Globulin 2.7 g/dL (1.6-3.3); Glucose 98 mg/dL (70-110); LDL Cholesterol,Calculated 69.2 mg/dL (0.0-131.0); Potassium 3.7 mmol/L (3.5-5.5); Sodium 139 mmol/L (135-145); Total Protein 6.5 g/dL (6.2-8.2)
[2022-12-18 19:52] LABS: Uric Acid 7.9 mg/dL (3.7-8.7)
== END | disposition home or self-care (01) ==
LOC: LABWHC1 11:27
PROVIDERS: ATTEND Internal Medicine Geriatric Medicine
DX: I25.10 Atherosclerotic heart disease of native coronary artery without angina pectoris (principal); K92.2 Gastrointestinal hemorrhage, unspecified; E11.42 Type 2 diabetes mellitus with diabetic polyneuropathy; Z94.0 Kidney transplant status
CPT/HCPCS: 36415; 80053; 80061; 83036; 84443; 84550; 85025

== ENCOUNTER → 2023-05-26 | Outpatient (CLI) | payer MEDICARE ==
--- NOTE | 2023-05-26 22:23 | MR ---
EXAMINATION TYPE: MR hand RT wo con DATE OF EXAM: 05/26/2023 COMPARISON: NONE HISTORY: 67-year-old male M7 9.641, right hand pain, unable to straighten out middle and ring finger. TECHNIQUE: Multiplanar, multisequence images of the right hand were obtained without IV contrast. FINDINGS: No acute or healing fractures seen. No marginal erosions or bone marrow edema is identified. There is widening of the scapholunate interval up to nearly 6 mm suggesting tear of the scapholunate ligament. Correlate for any carpal instability. Mild degenerative spurring at the first CMC joint. The extensor and flexor tendons of the hand appear satisfactory. No tenosynovitis is identified. Joint spaces appear relatively maintained throughout the fingers. There is nonspecific edema of the intrinsic muscles of the hand as well as the thenar and hypothenar eminences. IMPRESSION: 1. No evident abnormality of the extensor or flexor tendons with particular attention to the middle a nd ring fingers. 2. Frankly widened scapholunate interval suggesting underlying ligamentous tear. Correlate for any ca rpal instability. 3. Diffuse edema of the intrinsic musculature of the hand as well as the thenar and hypothenar eminen deanna. Findings are nonspecific. Myositis is possible. Given the diffuse nature, consider etiologies ba ch as reflex sympathetic dystrophy.
== END | disposition home or self-care (01) ==
LOC: RADMRIMAIN 07:29
PROVIDERS: ATTEND Orthopaedic Surgery Hand Surgery
DX: M79.641 Pain in right hand (principal); M66.241 Spontaneous rupture of extensor tendons, right hand; M79.642 Pain in left hand; M25.521 Pain in right elbow; G56.21 Lesion of ulnar nerve, right upper limb; G56.22 Lesion of ulnar nerve, left upper limb; M25.522 Pain in left elbow; R60.0 Localized edema

== ENCOUNTER → 2023-08-02 | Outpatient (CLI) | payer MEDICARE ==
[2023-08-02 15:57] LABS: ALT 20 U/L (10-49); AST 14 U/L (14-35); Albumin 3.6 d/dL (3.8-4.9); Alkaline Phosphatase 80 U/L (41-126); BUN/Creat Ratio 21.44 Ratio (12.00-20.00); Blood Urea Nitrogen 38.6 mg/dL (9.0-27.0); Carbon Dioxide 26.8 mmol/L (21.6-31.8); Chloride 101 mmol/L (96-109); Globulin 2.4 d/dL (1.6-3.3); Glucose 251 mg/dL (70-110); Magnesium 1.9 mg/dL (1.5-2.4); Potassium 4.3 mmol/L (3.5-5.5); Prostate Specific Antigen 0.35 ng/mL (0.000-4.500); Sodium 140 mmol/L (135-145); Total Bilirubin 0.6 mg/dL (0.3-1.2)
[2023-08-02 16:08] LABS: HCT 40.8 % (39.6-50.0); HGB 12.9 d/dL (13.0-17.0); MCH 28.2 pg (27.0-32.0); MCHC 31.6 d/dL (32.0-37.0); MCV 89.1 FL (80.0-97.0); Mean Platelet Volume 11.4 FL (9.5-12.2); NRBC Per 100 WBC 0 X 10*3/uL (0.00-0.01); Platelet Count 154 X 10*3/uL (140-440); RBC 4.58 X 10*6/uL (4.40-5.60); RDW 13.6 % (11.5-14.5); WBC 7.43 X 10*3/uL (4.50-10.00)
[2023-08-02 21:58] LABS: Urine Creatinine 82.9 mg/dL (39.0-259.0)
== END | disposition home or self-care (01) ==
LOC: LABWHC1 11:44
PROVIDERS: ATTEND Internal Medicine Geriatric Medicine
DX: E11.22 Type 2 diabetes mellitus with diabetic chronic kidney disease (principal); E11.42 Type 2 diabetes mellitus with diabetic polyneuropathy; N18.9 Chronic kidney disease, unspecified; I48.91 Unspecified atrial fibrillation; I25.10 Atherosclerotic heart disease of native coronary artery without angina pectoris; N40.0 Benign prostatic hyperplasia without lower urinary tract symptoms
CPT/HCPCS: 36415; 80053; 80197; 82043; 82570; 83036; 83735; 84153; 84443; 85027

== ENCOUNTER → 2023-08-25 | Outpatient (CLI) | payer MEDICARE ==
--- NOTE | 2023-08-25 11:06 | XR ---
EXAMINATION TYPE: XR cervical spine comp DATE OF EXAM: 08/25/2023 10:57 AM CLINICAL INDICATION:Male, 67 years old with history of M48.02 SPINAL STENOSIS, CERVICAL REGION; PHH COMPARISON: None TECHNIQUE: The cervical spine was imaged in frontal, lateral, odontoid and bilateral oblique. FINDINGS: The osseous structures show normal alignment without evidence of an acute fracture. There are osteoph ytes noted throughout the cervical spine on the anterior and lateral aspects of the vertebral bodies. The intervertebral disk spaces are narrowed at multiple levels. Pedicles are intact. Soft tissues a re within normal limits. The odontoid appears intact. Atherosclerosis of the carotid bifurcations. IMPRESSION: 1. No fracture or dislocation. 2. Moderate to severe degenerative disc disease changes of the cervical spine.
== END | disposition home or self-care (01) ==
LOC: RADXRMAIN 10:29
PROVIDERS: ATTEND Internal Medicine Geriatric Medicine
DX: M48.02 Spinal stenosis, cervical region (principal); M50.30 Other cervical disc degeneration, unspecified cervical region
CPT/HCPCS: 72050

== ENCOUNTER → 2023-10-02 | Outpatient (CLI) | payer MEDICARE ==
--- NOTE | 2023-10-02 13:54 | MR ---
EXAMINATION TYPE: MR cervical spine wo con DATE OF EXAM: 10/02/2023 12:48 PM CLINICAL INDICATION:Male, 68 years old with history of M50.30 OTHER CERVICAL DISC DEGENERATION,; PHH, Neck pain, BUE radiculopathy COMPARISON: Cervical radiograph 09/13/2023. TECHNIQUE: Multi planar, multi sequence imaging was performed utilizing: T1-weighted, T2-weighted, an d turbo inversion recovery imaging of the cervical spine. IV Contrast: cc (none if empty) FINDINGS: Alignment: The cervical vertebral bodies have preserved heights. Alignment is within normal limits gi mariah patient positioning there is grade 1 anterolisthesis C4 on C5. Bones: Multilevel disc space narrowing and osteophyte formation with facet and uncovertebral joint ar thropathy. Cord: The spinal cord is unremarkable with regards to their signal intensity and morphology. Discs: Multilevel disc desiccation is present. C2-C3: No significant disc pathology. The spinal canal is patent. Bilateral facet and uncovertebral joint arthropathy are present with mild bilateral neural foraminal stenosis. There is Modic endplate changes with reactive bony edema throughout the vertebral levels worse at C7-T1 and T2-T3 adjoining e ndplates. C3-C4: A disc osteophyte complex is present which minimally narrows the ventral subarachnoid space. Bilateral facet and uncovertebral joint arthropathy are present with severe right and moderate left neural foraminal stenosis. C4-C5: A disc osteophyte complex is present with moderate spinal canal stenosis. Bilateral facet and uncovertebral joint arthropathy are present with moderate to severe left and moderate right neural f oraminal stenosis. C5-C6: A disc osteophyte complex is present with severe spinal canal stenosis. Bilateral facet and u ncovertebral joint arthropathy are present with severe bilateral neural foraminal stenosis. C6-C7: A disc osteophyte complex is present with severe spinal canal stenosis. Bilateral facet and u ncovertebral joint arthropathy are present with severe bilateral neural foraminal stenosis. C7-T1: A disc osteophyte complex is present with severe spinal canal stenosis. Bilateral facet and u ncovertebral joint arthropathy are present with severe bilateral neural foraminal stenosis. Other: None. IMPRESSION: 1. Severe degeneration changes throughout spine with severe C5-C6, C6-C7 and C7-T1 spinal canal sten osis and bilateral or neural foraminal stenosis. Cord signal is maintained. 2. Grade 1 Anterolisthesis of C4 on C5.
== END | disposition home or self-care (01) ==
LOC: RADMRIMAIN 11:47
PROVIDERS: ATTEND Internal Medicine Geriatric Medicine
DX: M43.12 Spondylolisthesis, cervical region (principal); M48.03 Spinal stenosis, cervicothoracic region; M99.71 Connective tissue and disc stenosis of intervertebral foramina of cervical region; M50.122 Cervical disc disorder at C5-C6 level with radiculopathy; M50.123 Cervical disc disorder at C6-C7 level with radiculopathy; M50.13 Cervical disc disorder with radiculopathy, cervicothoracic region
CPT/HCPCS: 72141

== ENCOUNTER → 2023-11-04 | Outpatient (CLI) | payer MEDICARE | END | disposition home or self-care (01) | LOC: LABWHC1 14:01 | PROVIDERS: ATTEND Internal Medicine Geriatric Medicine | DX: Z53.9 Procedure and treatment not carried out, unspecified reason (principal) ==

== ENCOUNTER → 2023-12-21 | Outpatient (CLI) | payer MEDICARE | END | disposition home or self-care (01) | LOC: LABWHC1 12-20 11:49 | PROVIDERS: ATTEND Internal Medicine Geriatric Medicine | DX: Z53.9 Procedure and treatment not carried out, unspecified reason (principal) ==

== ENCOUNTER 2024-02-14 18:51 | Inpatient (IN) | payer MEDICARE ==
--- NOTE | 2024-02-14 20:18 | ED ---
SOB HPI - General Source: patient, RN notes reviewed Mode of arrival: ambulatory Limitations: no limitations <Bethanie Martin - Last Filed: 02/14/24 20:17> - General Source: patient, RN notes reviewed Mode of arrival: ambulatory Limitations: no limitations - History of Present Illness MD Complaint: shortness of breath -: week(s) Severity scale (1-10): 0 Consistency: constant Improves With: nothing Worsens With: lying flat, exertion Treatments Prior to Arrival: none <Devon Parsons - Last Filed: 03/06/24 07:03> - General Chief Complaint: Shortness of Breath Stated Complaint: Fluid on Lungs-sent by Time Seen by Provider: 02/14/24 20:17 - History of Present Illness Initial Comments: Quick note: 68-year-old male presenting to the ER with a chief complaint of shortness of breath. Patient also reports tachycardia. Patient sent by PCP for evaluation. He denies home oxygen use or peripheral edema. He does report recent fever and chills. (Bethanie Martin) This patient is a 68-year-old man with history of previous kidney transplant for renal failure related to diabetes and hypertension. The patient notes that for the past approximately 2 weeks he states " I have no get up and go." Meaning he just feels a lack of energy and when he does walk he becomes short of breath. The patient states that he also is short of breath if he lies flat. He has noted today that his heart is beating rapidly. The patient states that he scheduled an appointment with Dr. Sears and when he was seen in the clinic it was recommended he go to emergency department. Patient has not noted fever or chills. He does have occasional cough, no sputum. He denies chest pain, leg swelling, change in urination or bowel movements. (Devon Parsons) - Related Data Home Medications Medication Instructions Recorded Confirmed Atorvastatin [Lipitor] 40 mg PO DAILY 07/11/19 02/15/24 Mycophenolate Sodium [Mycophenolic 720 mg PO BID 07/11/19 02/15/24 Acid] Tacrolimus [Prograf] 1 mg PO BID 07/11/19 02/15/24 Tamsulosin HCl [Flomax] 0.4 mg PO DAILY 07/11/19 02/15/24 allopurinoL [Zyloprim] 100 mg PO DAILY 07/11/19 02/15/24 predniSONE 5 mg PO DAILY 07/11/19 02/15/24 Pantoprazole Sodium [Protonix] 40 mg PO DAILY 07/28/22 02/15/24 Aspirin EC [Ecotrin Low Dose] 81 mg PO DAILY 02/15/24 02/15/24 Insulin Glargine,Hum.rec.anlog 30 units SQ BID 02/15/24 02/15/24 [Lantus Solostar Pen] Previous Rx's Medication Instructions Recorded Amiodarone [Cordarone] 200 mg PO DAILY #30 tab 02/25/24 Apixaban [Eliquis] 2.5 mg PO BID #60 tab 02/25/24 Diltiazem Cd [Cardizem CD] 120 mg PO DAILY #30 cap 02/25/24 Insulin Aspart [NovoLOG Flexpen] 15 units SQ AC-TID #0 02/25/24 Ipratropium-Albuterol Nebulize 3 ml INHALATION RT-TID #90 each 02/25/24 [Duoneb 0.5 mg-3 mg/3 ml Soln] Metoprolol Tartrate [Lopressor] 75 mg PO TID #135 tab 02/25/24 Torsemide [Demadex] 20 mg PO DAILY tab 02/25/24 hydrALAZINE HCL [Apresoline] 25 mg PO BID #0 02/25/24 Allergies Allergy/AdvReac Type Severity Reaction Status Date / Time No Known Allergies Allergy Verified 02/15/24 11:10 Review of Systems ROS Other: All systems not noted in ROS Statement are negative. <Bethanie Martin - Last Filed: 02/14/24 20:17> ROS Other: All systems not noted in ROS Statement are negative. Constitutional: Reports: weakness. Denies: fever, chills Respiratory: Reports: cough. Denies: wheezes, hemoptysis Cardiovascular: Reports: palpitations, dyspnea on exertion, orthopnea. Denies: chest pain, edema, syncope Gastrointestinal: Denies: abdominal pain, nausea, vomiting, diarrhea Genitourinary: Denies: dysuria, hematuria Musculoskeletal: Denies: back pain Skin: Denies: rash Neurological: Denies: headache, weakness, numbness <Devon Parsons - Last Filed: 03/06/24 07:03> ROS Statement: Those systems with pertinent positive or pertinent negative responses have been documented in the HPI. Past Medical History Past Medical History: CVA/TIA, Diabetes Mellitus, Hyperlipidemia, Hypertension Additional Past Medical History / Comment(s): kidney transplant; stroke at 42 years old History of Any Multi-Drug Resistant Organisms: None Reported Additional Past Surgical History / Comment(s): kidney transplant Past Psychological History: No Psychological Hx Reported Past Alcohol Use History: Occasional Past Drug Use History: None Reported <Bethanie Martin - Last Filed: 02/14/24 20:17> General Exam Limitations: no limitations <Bethanie Martin - Last Filed: 02/14/24 20:17> Limitations: no limitations General appearance: alert, in no apparent distress Head exam: Present: atraumatic, normocephalic Eye exam: Present: normal appearance. Absent: scleral icterus, conjunctival injection ENT exam: Present: normal oropharynx Neck exam: Present: normal inspection Respiratory exam: Present: rales. Absent: respiratory distress, wheezes, rhonchi, stridor, accessory muscle use Cardiovascular Exam: Present: tachycardia, systolic murmur. Absent: diastolic murmur, rubs, gallop GI/Abdominal exam: Present: soft. Absent: distended, tenderness, guarding, rebound, rigid, mass Extremities exam: Present: normal inspection, normal capillary refill. Absent: pedal edema, calf tenderness Back exam: Present: normal inspection. Absent: CVA tenderness (R), CVA tenderness (L) Neurological exam: Present: alert Skin exam: Present: warm, dry, intact, normal color. Absent: rash <Devon Parsons - Last Filed: 03/06/24 07:03> - General Exam Comments Initial Comments: Visual Physical Exam Vital signs reviewed General: Well-appearing, nontoxic, no acute distress. Head: Normocephalic, atraumatic Eyes: PERRLA, EOMI ENT: Airway patent Chest: Nonlabored breathing Skin: No visual rash, normal skin tone Neuro: Alert and oriented 3 Musculoskeletal: No gross abnormalities (Bethanie Martin) Course Vital Signs 02/14/24 02/14/24 02/15/24 19:14 23:00 02:00 Temperature 98.6 F Pulse Rate 142 H 142 H 141 H Respiratory 20 20 20 Rate Blood Pressure 159/87 162/91 151/82 O2 Sat by Pulse 90 L 92 L 94 L Oximetry Fraction of Inspired Oxygen (FIO2) 02/15/24 02/15/24 02/15/24 06:41 08:14 10:09 Temperature 98.2 F Pulse Rate 141 H 141 H 141 H Respiratory 20 22 20 Rate Blood Pressure 148/89 141/76 152/85 O2 Sat by Pulse 92 L 91 L 91 L Oximetry Fraction of Inspired Oxygen (FIO2) 02/15/24 02/15/24 02/15/24 12:17 12:38 12:49 Temperature Pulse Rate 137 H 117 H 122 H Respiratory 22 18 18 Rate Blood Pressure 138/80 O2 Sat by Pulse 90 L 95 Oximetry Fraction of Inspired Oxygen (FIO2) 02/15/24 02/15/24 02/15/24 17:54 19:00 20:00 Temperature 98.6 F Pulse Rate 137 H 135 H 121 H Respiratory 20 22 Rate Blood Pressure 136/79 128/77 O2 Sat by Pulse 90 L 91 L Oximetry Fraction of Inspired Oxygen (FIO2) 02/15/24 02/15/24 02/15/24 20:08 20:13 22:52 Temperature Pulse Rate 120 H 137 H 137 H Respiratory 20 22 Rate Blood Pressure 139/82 174/109 O2 Sat by Pulse 93 L 90 L Oximetry Fraction of Inspired Oxygen (FIO2) 02/15/24 02/15/24 02/15/24 23:10 23:32 23:40 Temperature Pulse Rate 135 H 128 H 131 H Respiratory 22 24 25 H Rate Blood Pressure 180/97 O2 Sat by Pulse 87 L Oximetry Fraction of Inspired Oxygen (FIO2) 02/16/24 02/16/24 02/16/24 00:00 03:00 04:00 Temperature Pulse Rate 134 H 129 H 129 H Respiratory 22 20 20 Rate Blood Pressure 147/96 135/77 140/85 O2 Sat by Pulse 90 L 93 L 93 L Oximetry Fraction of Inspired Oxygen (FIO2) 02/16/24 02/16/24 02/16/24 05:12 06:40 06:48 Temperature Pulse Rate 130 H 129 H Respiratory 22 22 Rate Blood Pressure 141/80 165/83 O2 Sat by Pulse 92 L 91 L 90 L Oximetry Fraction of Inspired Oxygen (FIO2) 02/16/24 02/16/24 02/16/24 07:08 07:13 07:29 Temperature Pulse Rate 130 H 130 H Respiratory 20 19 Rate Blood Pressure O2 Sat by Pulse Oximetry Fraction of 50 Inspired Oxygen (FIO2) 02/16/24 02/16/24 02/16/24 07:30 07:59 08:52 Temperature Pulse Rate 129 H 129 H Respiratory 22 24 Rate Blood Pressure 135/76 122/75 O2 Sat by Pulse 92 L 94 L Oximetry Fraction of 60 Inspired Oxygen (FIO2) Medical Decision Making <Bethanie Martin - Last Filed: 02/14/24 20:17> - Lab Data Result diagrams: 02/25/24 08:08 02/25/24 08:08 - EKG Data -: EKG Interpreted by Me EKG shows normal: axis (Normal), intervals (Normal), QRS complexes (Normal) Interpretation: nonspecific ST-T wave changes, other (Atrial fibrillation with rapid ventricular rates approximately 142 bpm) <Devon Parsons - Last Filed: 03/06/24 07:03> - Medical Decision Making I performed the quick note portion of this chart. Electronically signed by Bethanie Martin PA-C (Bethanie Martin) The patient had chest x-ray that I interpreted as showing possible left lower lobe infiltrate. No pneumothorax. Some vascular congestion. Was pt. sent in by a medical professional or institution ([facility] Wheeler, [facility]YIST, urgent care, hospital, or fpc...) When possible be specific @ -[Yes the patient was sent from his primary clinic to have evaluation and probable admission. Did you speak to anyone other than the patient for history (EMS, parent, family, police, friend...)? What history was obtained from this source @ -[No] Did you review nursing and triage notes (agree or disagree)? Why? @ -[I reviewed and agree with nursing and triage notes] Were old charts reviewed (outside hosp., previous admission, EMS record, old EKG, old radiological studies, urgent care reports/EKG's, fpc records)? Report findings @ -[Yes, Old charts were reviewed] Differential Diagnosis (chest pain, altered mental status, abdominal pain women, abdominal pain men, vaginal bleeding, weakness, fever, dyspnea, syncope, headache, dizziness, GI bleed, back pain, seizure, CVA, palpatations, mental health, musculoskeletal)? @ -[Differential Dyspnea: Coronary syndrome, arrhythmia, tamponade, asthma, COPD, pulmonary embolism, pneumonia, pneumothorax, pulmonary effusion, anaphylaxis, diabetic ketoacidosis, flailed chest, pulmonary contusion, diaphragmatic rupture, anemia, neuromuscul ar, this is not meant to be an all-inclusive list. EKG interpreted by me (3pts min.). @ -[I interpreted as above] X-rays interpreted by me (1pt min.). @ -I interpreted as above CT interpreted by me (1pt min.). @ -[None done] U/S interpreted by me (1pt. min.). @ -[None done] What testing was considered but not performed or refused? (CT, X-rays, U/S, labs)? Why? @ -[None] What meds were considered but not given or refused? Why? @ -[None] Did you discuss the management of the patient with other professionals (professionals i.e. , PA, MILLINERY COPYIST, lab, RT, psych nurse, social media marketing analyst, bpm analyst, teacher, recreation officer, gearcase assembler)? Give summary @ -[Case discussed with admitting physician and treatment recommendations incorporated Was smoking cessation discussed for >3mins.? @ -[No] Was critical care preformed (if so, how long)? @ -[Yes, 35 minutes Were there social determinants of health that impacted care today? How? (Homelessness, low income, unemployed, alcoholism, drug addiction, t ransportation, low edu. Level, literacy, decrease access to med. care, nursing home, rehab)? @ -[No] Was there de-escalation of care discussed even if they declined (Discuss DNR or withdrawal of care, Hospice)? DNR status @ -[No] What co-morbidities impacted this encounter? (DM, HTN, Smoking, COPD, CAD, C ancer, CVA, ARF, Chemo, Hep., AIDS, mental health diagnosis, sleep apnea, morbid obesity)? @ -[Hypertension, renal transplant, diabetes Was patient admitted / discharged? Hospital course, mention meds given and route, prescriptions, significant lab abnormalities, going to OR and other pertinent info. @ -[Patient is a 68-year-old man here to have evaluation for dyspnea. He is in atrial flutter with rapid ventricular rate and is started on Cardizem. The patient also may have infiltrate though his procalcitonin is not markedly elevated. He did receive antibiotics here. The patient will have further consultations including cardiology, pulmonology, nephrology. Undiagnosed new problem with uncertain prognosis? @ -[No] Drug Therapy requiring intensive monitoring for toxicity (Heparin, Nitro, Insulin, Cardizem)? @ -[No] Were any procedures done? @ -[No] Diagnosis/symptom? @ -[Acute atrial flutter with rapid ventricular rate Suspected left lower lobe pneumonia Acute congestive heart failure Acute dyspnea Acute, or Chronic, or Acute on Chronic? @ -[Acute Uncomplicated (without systemic symptoms) or Complicated (systemic symptoms)? @ -[Complicated by dyspnea Side effects of treatment? @ -[No] Exacerbation, Progression, or Severe Exacerbation? @ -[No] Poses a threat to life or bodily function? How? (Chest pain, [place], [place], pneumonia, PE, COPD, DKA, ARF, appy, cholecystitis, CVA, Diverticulitis, Homicidal, Suicidal, threat to staff... and all critical care pts) @ -[Yes, there is risk of worsening respiratory failure/. (Devon Parsons) - Lab Data Lab Results 02/14/24 02/14/24 02/14/24 Range/Units 19:35 19:35 19:35 WBC 6.0 (3.8-10.6) k/uL RBC 3.52 L (4.30-5.90) m/uL Hgb 10.1 L (13.0-17.5) gm/dL Hct 33.5 L (39.0-53.0) % MCV 95.0 (80.0-100.0) fL MCH 28.8 (25.0-35.0) pg MCHC 30.3 L (31.0-37.0) g/dL RDW 13.9 (11.5-15.5) % Plt Count 170 (150-450) k/uL MPV 8.9 Neutrophils % 78 % Lymphocytes % 11 % Monocytes % 8 % Eosinophils % 0 % Basophils % 0 % Neutrophils # 4.7 (1.3-7.7) k/uL Lymphocytes # 0.6 L (1.0-4.8) k/uL Monocytes # 0.5 (0-1.0) k/uL Eosinophils # 0.0 (0-0.7) k/uL Basophils # 0.0 (0-0.2) k/uL Hypochromasia Moderate PT 11.9 (10.0-12.5) sec INR 1.1 (<1.2) APTT 25.1 (22.0-30.0) sec Sodium 135 L (137-145) mmol/L Potassium 4.2 (3.5-5.1) mmol/L Chloride 106 (98-107) mmol/L Carbon Dioxide 20 L (22-30) mmol/L Anion Gap 9 mmol/L BUN 49 H (9-20) mg/dL Creatinine 1.87 H (0.66-1.25) mg/dL Est GFR (CKD-EPI)AfAm 42 (>60 ml/min/1.73 sqM) Est GFR (CKD-EPI)NonAf 37 (>60 ml/min/1.73 sqM) Glucose 264 H (74-99) mg/dL Plasma Lactic Acid Feliciano (0.7-2.0) mmol/L Calcium 9.3 (8.4-10.2) mg/dL Magnesium 2.0 (1.6-2.3) mg/dL Total Bilirubin 0.9 (0.2-1.3) mg/dL AST 41 (17-59) U/L ALT 73 H (4-49) U/L Alkaline Phosphatase 113 (38-126) U/L Troponin I (0.000-0.034) ng/mL NT-Pro-B Natriuret Pep 5620 pg/mL Total Protein 5.6 L (6.3-8.2) g/dL Albumin 3.1 L (3.5-5.0) g/dL Procalcitonin (0.02-0.09) ng/mL 02/14/24 02/14/24 02/15/24 Range/Units 19:35 19:35 00:20 WBC (3.8-10.6) k/uL RBC (4.30-5.90) m/uL Hgb (13.0-17.5) gm/dL Hct (39.0-53.0) % MCV (80.0-100.0) fL MCH (25.0-35.0) pg MCHC (31.0-37.0) g/dL RDW (11.5-15.5) % Plt Count (150-450) k/uL MPV Neutrophils % % Lymphocytes % % Monocytes % % Eosinophils % % Basophils % % Neutrophils # (1.3-7.7) k/uL Lymphocytes # (1.0-4.8) k/uL Monocytes # (0-1.0) k/uL Eosinophils # (0-0.7) k/uL Basophils # (0-0.2) k/uL Hypochromasia PT (10.0-12.5) sec INR (<1.2) APTT (22.0-30.0) sec Sodium (137-145) mmol/L Potassium (3.5-5.1) mmol/L Chloride (98-107) mmol/L Carbon Dioxide (22-30) mmol/L Anion Gap mmol/L BUN (9-20) mg/dL Creatinine (0.66-1.25) mg/dL Est GFR (CKD-EPI)AfAm (>60 ml/min/1.73 sqM) Est GFR (CKD-EPI)NonAf (>60 ml/min/1.73 sqM) Glucose (74-99) mg/dL Plasma Lactic Acid Feliciano 1.0 (0.7-2.0) mmol/L Calcium (8.4-10.2) mg/dL Magnesium (1.6-2.3) mg/dL Total Bilirubin (0.2-1.3) mg/dL AST (17-59) U/L ALT (4-49) U/L Alkaline Phosphatase (38-126) U/L Troponin I 0.069 H* (0.000-0.034) ng/mL NT-Pro-B Natriuret Pep pg/mL Total Protein (6.3-8.2) g/dL Albumin (3.5-5.0) g/dL Procalcitonin 0.40 H (0.02-0.09) ng/mL Disposition <Bethanie Martin - Last Filed: 02/14/24 20:17> Is patient prescribed a controlled substance at d/c from ED?: No <Devon Parsons - Last Filed: 03/06/24 07:03> Clinical Impression: Atrial flutter with rapid ventricular response, Pneumonia, CHF (congestive heart failure) Disposition: HOME SELF-CARE Condition: Serious
[2024-02-14 20:34] LABS: Basophils % (A) 0 %; Eosinophils % (A) 0 %; HCT 33.5 % (39.0-53.0); HGB 10.1 gm/dL (13.0-17.5); Hypochromasia Moderate; Lymphocytes # (A) 0.6 k/uL (1.0-4.8); Lymphocytes % (A) 11 %; MCH 28.8 pg (25.0-35.0); MCHC 30.3 g/dL (31.0-37.0); Mean Platelet Volume 8.9; Monocytes # (A) 0.5 k/uL (0-1.0); Monocytes % (A) 8 %; Neutrophils # (A) 4.7 k/uL (1.3-7.7); Neutrophils % (A) 78 %; Platelet Count 170 k/uL (150-450); RBC 3.52 m/uL (4.30-5.90); RDW 13.9 % (11.5-15.5)
--- NOTE | 2024-02-14 20:35 | XR ---
EXAMINATION TYPE: XR chest 2V DATE OF EXAM: 02/14/2024 8:09 PM CLINICAL INDICATION:Male, 68 years old with history of difficulty breathing; COMPARISON: Chest radiographs from 07/11/2019 TECHNIQUE: XR chest 2V Frontal and lateral views of the chest. FINDINGS: Lungs/Pleura: Left mid and lower lung airspace opacities There is no evidence of pleural effusion, ri ght focal consolidation, or pneumothorax. Pulmonary vascularity: Pulmonary vascular congestion. Heart/mediastinum: Cardiomediastinal silhouette is enlarged and stable. Atherosclerotic calcificatio ns are seen in the aorta. Left atrial appendage occlusion device is present. Musculoskeletal: Multiple level degenerative disc disease changes seen throughout the spine. Midline sternotomy wires are noted. IMPRESSION: 1. Left lower lung airspace opacities correlate for pneumonia. 2. Correlate with serum BNP to exclude a component of congestive heart failure.
[2024-02-14 20:43] LABS: ALT 73 U/L (4-49); AST 41 U/L (17-59); African American GFR (CKD) 42 (>60 ml/min/1.73 sqM); Albumin 3.1 g/dL (3.5-5.0); Alkaline Phosphatase 113 U/L (38-126); Anion Gap 9 mmol/L; Blood Urea Nitrogen 49 mg/dL (9-20); Calcium 9.3 mg/dL (8.4-10.2); Carbon Dioxide 20 mmol/L (22-30); Chloride 106 mmol/L (98-107); Glucose 264 mg/dL (74-99); Non-African American GFR(CKD) 37 (>60 ml/min/1.73 sqM); Potassium 4.2 mmol/L (3.5-5.1); Sodium 135 mmol/L (137-145); Total Bilirubin 0.9 mg/dL (0.2-1.3); Total Protein 5.6 g/dL (6.3-8.2)
[2024-02-14 20:50] LABS: NT-Pro-B-Type Natriuretic Pept 5620 pg/mL
[2024-02-14 21:08] LABS: INR 1.1 (<1.2); Partial Thromboplastin Time 25.1 sec (22.0-30.0); Prothrombin Time 11.9 sec (10.0-12.5)
[2024-02-14] MEDS: DILTIAZEM 125 MG in SODIUM CHLORIDE 0.9% 100 ML IV SCH (23:35)
[2024-02-14] MEDS: DILTIAZEM DRIP BOLUS FROM BAG 1 MG SOLN IV ONE (23:43)
[2024-02-15] MEDS: AZITHROMYCIN 500 MG TAB PO STA (00:43)
[2024-02-15] MEDS ORDERED: PNEUMONIA PROTOCOL UTILIZED 1 EACH MISC PO PRN (01:03)
--- NOTE | 2024-02-15 08:17 | P.HPIM ---
History of Present Illness H&P Date: 02/15/24 HISTORY OF PRESENT ILLNESS: 68-year-old office patient with active medical history of atherosclerotic heart disease post CABG, end-stage renal disease post renal transplant at [facility] over 10 years ago, chronic stage IIIb kidney disease, hypertension, hyperlipidemia, chronic neuropathy, obesity, obstructive sleep apnea, mild peripheral arterial disease, who was back at [facility] few months ago for worsening kidney function was hospitalized for few days. He was not in the office on 02/14/2024 with complaining of severe dyspnea and shortness of breath with cough productive phlegm not been able to lay down flat mild fluid overload with worsening PND and orthopnea was having significant tachypnea and tachycardia with hypoxia. Pulse ox was less than 90 percentile looks the same time and failure but might have double pneumonia. Patient was sent to the emergency room at [facility] where was seen and evaluated Surprisingly his hemoglobin came back at 10.1 with white blood cell 6.0 creatinine 1.87 close to the last creatinine he has before leaving [facility] a few months ago his blood sugar was elevated at 264 with mildly elevated troponin 0.069 BNP 8 6620. His EKG from the office and from the emergency department showed atrial flutter with pulse rate running at 142 bpm quite irregular. Chest x-ray shows left lower lung airspace opacification correlate with pneumonia and mild congestive heart failure as well. Patient was started on IV antibiotics with ceftriaxone 2 g Cardizem drip was started to bring his pulse rate down not helpful or successful at the time. Consult cardiology and pulmonary patient admitted to the hospital. REVIEW OF SYSTEMS: CONSTITUTIONAL: Morbid obesity and mild respiratory distress. EYES: No icterus sclerae, no conjunctivitis. EARS, NOSE, MOUTH, THROAT, and FACE: No sore throat, lymphadenopathy, carotid bruits or deformity. RESPIRATORY: Positive shortness of breath cough or wheezes. CARDIOVASCULAR: Positive PND orthopnea palpitation. GASTROINTESTINAL: No Abd pain, Nausea or vomiting, no Diarrhea or constipation, No GI Bleed, no distention or masses. GENITOURINARY: No polyuria nocturia without any hematuria. INTEGUMENT/BREAST: Negative for any muscular injury with mild osteoarthritis.. HEMATOLOGIC/LYMPHATIC: Chronic anemia with no bleeding. MUSCULOSKELTAL: Negative for Myalgia or arthralgia. NEURLOGICAL: No LOC, Sz or syncope, blurred vision dizziness or abnormality.. BEHAVIORAL/PSYCH: Negative. ENDOCRINE: Negative. PHYSICAL EXAMINATION: General Appearance: Overweight in mild respiratory distress. Neck HEENT: Supple, no lymphadenopathy, no thyroid enlargement, no carotid bruits. Lungs: Decreased breath sound bilaterally especially the left side with fine rhonchi positive crackles in the bases positive mild inspiratory expiratory wheezes. Chest Wall: Decreased expansion with deep inspiration no tenderness and no deformity was found on exam, no costochondral pain or discomfort. Heart: Irregular rate and rhythm, S1, S2 positive S3 positive PVCs. Back: Symmetric, no curvature, ROM normal, no CVA tenderness. Abdomen: Soft, non-tender, bowel sounds active all four quadrants, no masses, no organomegaly. Extremities: Extremities normal, atraumatic, no cyanosis positive edema. Pulses: 2+ and symmetric. Skin: Skin color, texture, tugor normal, no rashes or lesions. Neurologic: Alert oriented x3 cranial nerves II through XII intact, no motor deficit, no abnormal balance or gait. ASSESSMENT AND PLAN: _Acute respiratory failure: Combination of congestive heart failure along with arrhythmia and left lower lobe pneumonia. _Left lower lobe pneumonia: Was started on Rocephin continue antibiotic for now will consult pulmonary continue updraft treatment and oxygen. _Tachycardia with a flutter pulse rate 142 beats per minutes will continue Cardizem drip will add out continue his metoprolol 50 mg 3 times a day will consult cardiology, echocardiogram will be done anticoagulation will be started as well. _Congestive heart failure acute with mild exacerbation mostly systolic dysfunction at this point he is known to have coronary artery disease post CABG his ejection fraction last known 50 percentile echocardiogram will be ordered for the morning will continue diuretics as well. _Type 2 diabetes not well-controlled noncompliance to medication has been mostly on Lantus 70 units daily along with NovoLog 35 units AC meals plus sliding scales coverage. Adding SGLT2 product would be beneficial at this point. Titrate insulin as needed. _End-stage renal disease posttransplant remain on antirejection drugs will consult nephrology continue mycophenolate acid along with Prograf and still on prednisone 5 mg daily. _Hypertension:_Has been on hydralazine 50 mg twice a day, amlodipine 10 mg daily, metoprolol titrate 50 mg 3 times a day. _Hyperlipidemia: Has been on Lipitor 40 mg a day currently medication. _BPH watch for any urinary retention. _Stage IIIb chronic kidney disease posttransplant continue hydration avoid nephrotoxic agent type II preserve any kidney function. _GI prophylaxis: Patient be on Pepcid 20 mg daily. _DVT prophylaxis: With his A-flutter/A-fib patient be on anticoagulation. CODE STATUS: Full code. Admit patient to the inpatient service for more than 2 night stay. Past Medical History Past Medical History: CVA/TIA, Diabetes Mellitus, Hyperlipidemia, Hypertension Additional Past Medical History / Comment(s): kidney transplant; stroke at 42 years old History of Any Multi-Drug Resistant Organisms: None Reported Additional Past Surgical History / Comment(s): kidney transplant Past Psychological History: No Psychological Hx Reported Past Alcohol Use History: Occasional Past Drug Use History: None Reported Medications and Allergies Home Medications Medication Instructions Recorded Confirmed Type Atorvastatin [Lipitor] 40 mg PO DAILY 07/11/19 07/28/22 History Clopidogrel [Plavix] 75 mg PO DAILY 07/11/19 07/28/22 History Metoprolol Tartrate [Lopressor] 50 mg PO TID 07/11/19 07/28/22 History Mycophenolate Sodium [Mycophenolic 720 mg PO BID 07/11/19 07/28/22 History Acid] Tacrolimus [Prograf] 1 mg PO BID 07/11/19 07/28/22 History Tamsulosin HCl [Flomax] 0.4 mg PO DAILY 07/11/19 07/28/22 History allopurinoL [Zyloprim] 100 mg PO DAILY 07/11/19 07/28/22 History amLODIPine BESYLATE 10 mg PO DAILY 07/11/19 07/28/22 History hydrALAZINE HCL [Apresoline] 50 mg PO BID 07/11/19 07/28/22 History predniSONE 5 mg PO DAILY 07/11/19 07/28/22 History Insulin Aspart [NovoLOG Flexpen] 35 units SQ AC-BID@0800,1200 07/28/22 07/28/22 History Insulin Aspart [NovoLOG Flexpen] See Protocol SQ AC-TID 07/28/22 07/28/22 History Pantoprazole Sodium [Protonix] 40 mg PO DAILY 07/28/22 07/28/22 History Insulin Glargine,Hum.rec.anlog 70 units SQ DAILY #0 07/29/22 07/28/22 Rx [Lantus Solostar Pen] Allergies Allergy/AdvReac Type Severity Reaction Status Date / Time No Known Allergies Allergy Verified 07/28/22 08:43 Physical Exam Vitals: Vital Signs Temp Pulse Resp BP Pulse Ox 02/15/24 02:00 141 H 20 151/82 94 L 02/14/24 23:00 142 H 20 162/91 92 L 02/14/24 19:14 98.6 F 142 H 20 159/87 90 L Intake and Output 02/14/24 02/14/24 02/15/24 14:59 22:59 06:59 Other: Weight 93.44 kg Results CBC & Chem 7: 02/14/24 19:35 02/14/24 19:35 Labs: Abnormal Lab Results - Last 24 Hours (Table) 02/14/24 02/14/24 02/14/24 Range/Units 19:35 19:35 19:35 RBC 3.52 L (4.30-5.90) m/uL Hgb 10.1 L (13.0-17.5) gm/dL Hct 33.5 L (39.0-53.0) % MCHC 30.3 L (31.0-37.0) g/dL Lymphocytes # 0.6 L (1.0-4.8) k/uL Sodium 135 L (137-145) mmol/L Carbon Dioxide 20 L (22-30) mmol/L BUN 49 H (9-20) mg/dL Creatinine 1.87 H (0.66-1.25) mg/dL Glucose 264 H (74-99) mg/dL ALT 73 H (4-49) U/L Troponin I 0.069 H* (0.000-0.034) ng/mL Total Protein 5.6 L (6.3-8.2) g/dL Albumin 3.1 L (3.5-5.0) g/dL
--- NOTE | 2024-02-15 09:35 | P.CRDCN ---
History of Present Illness History of present illness: HISTORY OF PRESENT ILLNESS: This is a 68-year-old male with a past medical history significant for CAD with previous CABG, hypertension, hyperlipidemia, kidney transplant, chronic kidney disease, and diabetes. 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 We have been asked to see the patient in consultation for atrial flutter. Patient examined at the bedside in the emergency room. Patient presented to the hospital with a chief complaint of shortness of breath and a productive cough. Patient was found to have pneumonia and was started on IV antibiotics. Patient was also found to be in atrial flutter/fibrillation with RVR. He was started on IV Cardizem. Patient remains in atrial flutter with RVR at the time of examination with heart rates around 140. He is currently on a Cardizem drip at 10 mg an hour. Patient denies any previous history of atrial flutter/fibrillation. DIAGNOSTICS: - EKG reveals A-fib with RVR. Bedside telemetry reveals atrial flutter with RVR. - Chest xray left lower lung airspace opacity, correlate for pneumonia. - Laboratory data: WBC 6.0. Hemoglobin 10.1. Platelet count 170. Sodium 135. Potassium 4.2. BUN 49. Creatinine 1.87. Troponin 0.069. proBNP 5620. - Current home cardiac medication list has not been updated at the time of dic tation - Most recent echocardiogram obtained in July 2019 revealing ejection fraction 55 to 60%, mild aortic regurgitation, severe aortic stenosis, mild MR, mild TR, mild pulmonary hypertension REVIEW OF SYSTEMS: At the time of my exam: CONSTITUTIONAL: Denies fever or chills. HEENT: Denies blurred vision, vision changes, or eye pain. Denies hemoptysis CARDIOVASCULAR: Denies chest pain. Denies orthopnea. Denies PND. Denies palpitations RESPIRATORY: + shortness of breath. GASTROINTESTINAL: Denies abdominal pain. Denies nausea or vomiting. HEMATOLOGIC: Denies bleeding disorders. GENITOURINARY: Denies any blood in urine. SKIN: Denies pruitis. Denies rash. PHYSICAL EXAM: VITAL SIGNS: Reviewed. GENERAL: Well-developed in no acute distress. HEENT: Head is normocephalic. Pupils are equal, round. Sclerae anicteric. Mucous membranes of the mouth are moist. Neck supple. No JVD or thyromegaly LUNGS: Respirations even and unlabored. Lungs diminished HEART: Tachycardic. Irregular rate and rhythm. S1 and S2 heard. + systolic murmur ABDOMEN: Soft. Nondistended. Nontender. EXTREMITIES: Normal range of motion. No clubbing or cyanosis. Peripheral pulses intact. No lower extremity edema NEUROLOGIC: Awake and alert. Oriented x 3. ASSESSMENT: Shortness of breath Left lower lobe pneumonia New onset atrial fibrillation/typical atrial flutter with RVR Coronary artery disease with previous CABG, details unknown Abnormal troponin, type II, oxygen supply and demand mismatch, ACS ruled out Hypertension Hyperlipidemia Chronic kidney disease Diabetes History of kidney transplant Severe aortic stenosis PLAN: Obtain 2D echo to assess cardiac structure and function Continue IV Cardizem Add metoprolol tartrate 50 mg twice a day Begin IV heparin Check TSH Continue telemetry monitoring Patient to undergo MIHAELA and cardioversion today with Dr. Garcia Further recommendations pending patient course Nurse practitioner note has been reviewed by physician. Signing provider agrees with the documented findings, assessment, and plan of care documented by SHOT LIGHTER as a scribe. Past Medical History Past Medical History: CVA/TIA, Diabetes Mellitus, Hyperlipidemia, Hypertension Additional Past Medical History / Comment(s): kidney transplant; stroke at 42 years old History of Any Multi-Drug Resistant Organisms: None Reported Additional Past Surgical History / Comment(s): kidney transplant Past Psychological History: No Psychological Hx Reported Past Alcohol Use History: Occasional Past Drug Use History: None Reported Medications and Allergies Home Medications Medication Instructions Recorded Confirmed Type Atorvastatin [Lipitor] 40 mg PO DAILY 07/11/19 07/28/22 History Clopidogrel [Plavix] 75 mg PO DAILY 07/11/19 07/28/22 History Metoprolol Tartrate [Lopressor] 50 mg PO TID 07/11/19 07/28/22 History Mycophenolate Sodium [Mycophenolic 720 mg PO BID 07/11/19 07/28/22 History Acid] Tacrolimus [Prograf] 1 mg PO BID 07/11/19 07/28/22 History Tamsulosin HCl [Flomax] 0.4 mg PO DAILY 07/11/19 07/28/22 History allopurinoL [Zyloprim] 100 mg PO DAILY 07/11/19 07/28/22 History amLODIPine BESYLATE 10 mg PO DAILY 07/11/19 07/28/22 History hydrALAZINE HCL [Apresoline] 50 mg PO BID 07/11/19 07/28/22 History predniSONE 5 mg PO DAILY 07/11/19 07/28/22 History Insulin Aspart [NovoLOG Flexpen] 35 units SQ AC-BID@0800,1200 07/28/22 07/28/22 History Insulin Aspart [NovoLOG Flexpen] See Protocol SQ AC-TID 07/28/22 07/28/22 His tory Pantoprazole Sodium [Protonix] 40 mg PO DAILY 07/28/22 07/28/22 History Insulin Glargine,Hum.rec.anlog 70 units SQ DAILY #0 07/29/22 07/28/22 Rx [Lantus Solostar Pen] Allergies Allergy/AdvReac Type Severity Reaction Status Date / Time No Known Allergies Allergy Verified 07/28/22 08:43 Physical Exam Vitals: Vital Signs Temp Pulse Resp BP Pulse Ox 02/15/24 08:14 98.2 F 141 H 22 141/76 91 L 02/15/24 06:41 141 H 20 148/89 92 L 02/15/24 02:00 141 H 20 151/82 94 L 02/14/24 23:00 142 H 20 162/91 92 L 02/14/24 19:14 98.6 F 142 H 20 159/87 90 L Intake and Output 02/14/24 02/15/24 02/15/24 22:59 06:59 14:59 Intake Total 43.417 Balance 43.417 Intake: Intake, IV Titration 43.417 Amount Diltiazem 125 mg In 43.417 Sodium Chloride 0.9% 100 ml @ 5 MG/HR 5 mls/hr IV .Q24H [facility] Rx#:[id number] Other: Weight 93.44 kg Results 02/14/24 19:35 02/14/24 19:35 Cardiac Enzymes 02/14/24 02/14/24 Range/Units 19:35 19:35 AST 41 (17-59) U/L Troponin I 0.069 H* (0.000-0.034) ng/mL Coagulation 02/14/24 Range/Units 19:35 PT 11.9 (10.0-12.5) sec APTT 25.1 (22.0-30.0) sec CBC 02/14/24 Range/Units 19:35 WBC 6.0 (3.8-10.6) k/uL RBC 3.52 L (4.30-5.90) m/uL Hgb 10.1 L (13.0-17.5) gm/dL Hct 33.5 L (39.0-53.0) % Plt Count 170 (150-450) k/uL Comprehensive Metabolic Panel 02/14/24 Range/Units 19:35 Sodium 135 L (137-145) mmol/L Potassium 4.2 (3.5-5.1) mmol/L Chloride 106 (98-107) mmol/L Carbon Dioxide 20 L (22-30) mmol/L BUN 49 H (9-20) mg/dL Creatinine 1.87 H (0.66-1.25) mg/dL Glucose 264 H (74-99) mg/dL Calcium 9.3 (8.4-10.2) mg/dL AST 41 (17-59) U/L ALT 73 H (4-49) U/L Alkaline Phosphatase 113 (38-126) U/L Total Protein 5.6 L (6.3-8.2) g/dL Albumin 3.1 L (3.5-5.0) g/dL Current Medications Generic Name Dose Route Start Last Admin Trade Name Freq PRN Reason Stop Dose Admin Diltiazem HCl 125 mg/ Sodium 125 mls @ 5 mls/hr 02/14/24 23:15 02/15/24 08:16 Chloride IV 10 mg/hr .Q24H THU 10 mls/hr Infusion 5 MG/HR Ceftriaxone Sodium 2 gm/ 50 mls @ 100 mls/hr 02/16/24 01:00 Sodium Chloride IVPB DAILY@0100 [facility] Protocol Miscellaneous Information 1 each 02/15/24 01:03 Pneumonia Protocol Utilized 1 Each Misc PO ONCE PRN Per Protocol Intake and Output 02/14/24 02/15/24 02/15/24 22:59 06:59 14:59 Intake Total 43.417 Balance 43.417 Intake: Intake, IV Titration 43.417 Amount Diltiazem 125 mg In 43.417 Sodium Chloride 0.9% 100 ml @ 5 MG/HR 5 mls/hr IV .Q24H [facility] Rx#:[id number] Other: Weight 93.44 kg 02/14/24 19:35 02/14/24 19:35
[2024-02-15] MEDS: METOPROLOL TARTRATE 50 MG TAB PO SCH ×2 (10:02→17:59)
[2024-02-15] MEDS: HEPARIN SODIUM 1,000 UN/ML (10ML VL) IV ONE (10:05)
[2024-02-15] MEDS: HEPARIN SOD,PORK IN 0.45% NACL 25,000 UNIT in 0.45% NACL 1 250ML.BAG IV SCH (10:06)
[2024-02-15 10:13] LABS: INR 1.1 (<1.2); Partial Thromboplastin Time 23.2 sec (22.0-30.0)
[2024-02-15 10:48] LABS: Basophils % (A) 0 %; Eosinophils % (A) 1 %; HCT 32.6 % (39.0-53.0); HGB 9.7 gm/dL (13.0-17.5); Hypochromasia Moderate; Lymphocytes # (A) 0.6 k/uL (1.0-4.8); Lymphocytes % (A) 10 %; MCH 28.6 pg (25.0-35.0); MCHC 29.7 g/dL (31.0-37.0); MCV 96.2 fL (80.0-100.0); Mean Platelet Volume 8.1; Monocytes # (A) 0.5 k/uL (0-1.0); Monocytes % (A) 8 %; Neutrophils # (A) 4.8 k/uL (1.3-7.7); Neutrophils % (A) 78 %; Platelet Count 174 k/uL (150-450); RBC 3.39 m/uL (4.30-5.90); RDW 13.8 % (11.5-15.5); WBC 6.1 k/uL (3.8-10.6)
[2024-02-15] MEDS ORDERED: IPRATROPIUM-ALBUTEROL 3 ML NEB INHALATION PRN (11:53)
--- NOTE | 2024-02-15 11:53 | P.CNPUL ---
History of Present Illness Consult date: 02/15/24 Requesting physician: Mario Finley Reason for consult: dyspnea, cough, COPD, hypoxemia, pneumonia, pleural effusion, abnormal CXR/CT Chief complaint: Shortness of breath, tachycardia. History of present illness: Pulmonary consult dated February 15, 2024. 68-year-old male who was seen in the emergency department, on February 13. He came into the emergency department, complaining of shortness of breath, and, was told by his family doctor, to be evaluated in the emergency department. The patient was found in Dr. Finley's office to have a heart rate of 140 bpm, and to be very short of breath. The patient's heart rate was irregular, and atrial fibrillation was suspected. In addition, the patient was found to likely be in congestive heart failure. The patient was initially reluctant to come to the hospital and be admitted, but he finally did. He has a history of previous bypass grafting in 2018, [facility], and a kidney transplant, at the [facility] in 2012. More recently, the patient's renal function has declined. We will check a procalcitonin level. His N-terminal proBNP was 5620. When we saw him, he was on 2 L of oxygen, and receiving Cardizem drip at 10 mg an hour. He appeared to be in moderate distress. He was coughing frequently, and was clearly short of breath. In addition to bypass grafting, and kidney transplantation, the patient has a history of hyperlipidemia, and hypertension, as well as gout. Also, the patient has a history of diabetes mellitus. He has no known allergies. The patient also apparently had a stroke at the age of 42. Current labs include white count 6.1, hemoglobin 9.7, hematocrit 32.6, and a normal platelet count. Coagulation studies were normal. Sodium 135, potassium 4.2, chlorides 106, CO2 20, anion gap 9, BUN 49, and creatinine 1.87. These electrolytes are consistent with a 9 anion gap metabolic acidosis. Glucose was 264. Lactic acid was 1. Troponin was 0.069. N-terminal proBNP was 5620. Procalcitonin level was elevated at 0.40. Chest x-ray showed a pattern consistent with either fluid overload/CHF, or possible pneumonia, left lung. Review of Systems REVIEW OF SYSTEMS: CONSTITUTIONAL: Weakness. NEUROLOGIC: [ Negative.] HEENT: [ Negative.] CARDIAC: Rapid heartbeat. PULMONARY: Shortness of breath. GI: [Negative.] : [Negative.] RHEUMATOLOGIC: [ Negative.] IMMUNOLOGIC: [ Negative.] ENDOCRINE: [Negative. ] DERMATOLOGIC: [Negative.] Past Medical History Past Medical History: CVA/TIA, Diabetes Mellitus, Hyperlipidemia, Hypertension Additional Past Medical History / Comment(s): kidney transplant; stroke at 42 years old History of Any Multi-Drug Resistant Organisms: None Reported Additional Past Surgical History / Comment(s): kidney transplant Past Psychological History: No Psychological Hx Reported Past Alcohol Use History: Occasional Past Drug Use History: None Reported Medications and Allergies Home Medications Medication Instructions Recorded Confirmed Type Atorvastatin [Lipitor] 40 mg PO DAILY 07/11/19 02/15/24 History Metoprolol Tartrate [Lopressor] 50 mg PO TID 07/11/19 02/15/24 History Mycophenolate Sodium [Mycophenolic 720 mg PO BID 07/11/19 02/15/24 History Acid] Tacrolimus [Prograf] 1 mg PO BID 07/11/19 02/15/24 History Tamsulosin HCl [Flomax] 0.4 mg PO DAILY 07/11/19 02/15/24 History allopurinoL [Zyloprim] 100 mg PO DAILY 07/11/19 02/15/24 History amLODIPine BESYLATE 10 mg PO DAILY 07/11/19 02/15/24 History hydrALAZINE HCL [Apresoline] 50 mg PO BID 07/11/19 02/15/24 History predniSONE 5 mg PO DAILY 07/11/19 02/15/24 History Insulin Aspart [NovoLOG Flexpen] 35 units SQ AC-TID 07/28/22 02/15/24 History Pantoprazole Sodium [Protonix] 40 mg PO DAILY 07/28/22 02/15/24 History Aspirin EC [Ecotrin Low Dose] 81 mg PO DAILY 02/15/24 02/15/24 History Furosemide [Lasix] 40 mg PO DAILY 02/15/24 02/15/24 History Insulin Glargine,Hum.rec.anlog 30 units SQ BID 02/15/24 02/15/24 History [Lantus Solostar Pen] Allergies Allergy/AdvReac Type Severity Reaction Status Date / Time No Known Allergies Allergy Verified 02/15/24 11:10 Physical Exam Osteopathic Statement: *. No significant issues noted on an osteopathic structural exam other than those noted in the History and Physical/Consult. Vitals: Vital Signs Temp Pulse Resp BP Pulse Ox 02/15/24 10:09 141 H 20 152/85 91 L 02/15/24 08:14 98.2 F 141 H 22 141/76 91 L 02/15/24 06:41 141 H 20 148/89 92 L 02/15/24 02:00 141 H 20 151/82 94 L 02/14/24 23:00 142 H 20 162/91 92 L 02/14/24 19:14 98.6 F 142 H 20 159/87 90 L Intake and Output 02/14/24 02/15/24 02/15/24 22:59 06:59 14:59 Intake Total 43.417 Balance 43.417 Intake: Intake, IV Titration 43.417 Amount Diltiazem 125 mg In 43.417 Sodium Chloride 0.9% 100 ml @ 5 MG/HR 5 mls/hr IV .Q24H [facility] Rx#:[id number] Other: Weight 93.44 kg Mild respiratory distress, oriented x 3, currently on nasal O2 at 2 L. The patient is coughing frequently. HEENT examination is grossly unremarkable. Mucous membranes are moist. No oral lesions. Neck supple. Full range of motion. No adenopathy thyromegaly or neck vein distention. Cardiovascular examination reveals an irregular rhythm and rate. S1-S2 normal. No S3 or S4. No discernible murmur noted. Heart rate 141 bpm. Lungs reveal bilateral coarse rhonchi. Basilar crackles are noted. No wheezes. Breath sounds are equal bilaterally. 2 L saturation is 92%. Abdomen obese, but without tenderness. Extremities are intact. No cyanosis clubbing or edema. Skin is without rash or lesion. Neurologic examination is brief but nonfocal. Results - Laboratory Findings CBC and BMP: 02/15/24 09:33 02/14/24 19:35 PT/INR, D-dimer PT 12.0 sec (10.0-12.5) 02/15/24 09:33 INR 1.1 (<1.2) 02/15/24 09:33 Abnormal lab findings: Abnormal Labs 02/14/24 02/14/24 02/14/24 19:35 19:35 19:35 RBC 3.52 L Hgb 10.1 L Hct 33.5 L MCHC 30.3 L Lymphocytes # 0.6 L Sodium 135 L Carbon Dioxide 20 L BUN 49 H Creatinine 1.87 H Glucose 264 H ALT 73 H Troponin I 0.069 H* Total Protein 5.6 L Albumin 3.1 L Procalcitonin 02/14/24 02/15/24 19:35 09:33 RBC 3.39 L Hgb 9.7 L Hct 32.6 L MCHC 29.7 L Lymphocytes # 0.6 L Sodium Carbon Dioxide BUN Creatinine Glucose ALT Troponin I Total Protein Albumin Procalcitonin 0.40 H - Diagnostic Findings Chest x-ray: image reviewed Assessment and Plan Assessment: Acute hypoxemic respiratory failure, likely multifactorial, in part related to atrial fibrillation/RVR, CHF/fluid overload, and possible pneumonia. History of kidney transplantation, 2013, at [facility]. Previous bypass grafting, 2019, [facility]. History of hypertension. History of hyperlipidemia. History of diabetes mellitus. History of gout. History of CVA, at age 42. Plan: Plan dated February 15, 2024. The patient is seen in the emergency department, room 5. He is currently on a Cardizem drip at 10 mg an hour, and O2 by nasal cannula at 2 L. The patient does look somewhat uncomfortable, and has a frequent cough. Labs, x-rays, and medications are reviewed. The patient is receiving azithromycin, and Rocephin for possible pneumonia. In addition, the patient is on the Cardizem drip at 10 mg an hour. The patient is also receiving IV heparin per protocol, and metoprolol. I will add some breathing treatments to the patient's regimen. Additional recommendations and suggestions are forthcoming. Prognosis is certainly guarded. Time with Patient: Greater than 30
--- NOTE | 2024-02-15 12:19 | P.NPCON ---
History of Present Illness - Reason for Consult acute renal failure - History of Present Illness patient is a 68-year-old male with history of coronary artery disease status post coronary artery bypass surgery, end-stage renal disease status post donor renal transplant in 2012 at [facility]. Baseline creatinine around 1.8 mg/dL. Patient is admitted to the hospital with complaints of shortness of breath. He has had a productive cough. Patient was noted to be in A. fib with RVR. Currently maintained on Cardizem drip. Chest x-ray shows left lower lung opacity and patient is being treated for pneumonia as well. Serum creatinine at 1.87. Patient states that his creatinine was about 3.7 mg/dL few weeks ago in [place]. A serum creatinine is noted to be 3.47 on 12/02/2023 and 1.8 on 12/21/2023 and 01/24/2024. admits to good urine output. maintained on tacrolimus prednisone and Myfortic. Review of Systems as per HPI Past Medical History Past Medical History: CVA/TIA, Diabetes Mellitus, Hyperlipidemia, Hypertension Additional Past Medical History / Comment(s): kidney transplant; stroke at 42 years old History of Any Multi-Drug Resistant Organisms: None Reported Additional Past Surgical History / Comment(s): kidney transplant Past Psychological History: No Psychological Hx Reported Past Alcohol Use History: Occasional Past Drug Use History: None Reported Medications and Allergies Home Medications Medication Instructions Recorded Confirmed Type Atorvastatin [Lipitor] 40 mg PO DAILY 07/11/19 02/15/24 History Metoprolol Tartrate [Lopressor] 50 mg PO TID 07/11/19 02/15/24 History Mycophenolate Sodium [Mycophenolic 720 mg PO BID 07/11/19 02/15/24 History Acid] Tacrolimus [Prograf] 1 mg PO BID 07/11/19 02/15/24 History Tamsulosin HCl [Flomax] 0.4 mg PO DAILY 07/11/19 02/15/24 History allopurinoL [Zyloprim] 100 mg PO DAILY 07/11/19 02/15/24 History amLODIPine BESYLATE 10 mg PO DAILY 07/11/19 02/15/24 History hydrALAZINE HCL [Apresoline] 50 mg PO BID 07/11/19 02/15/24 History predniSONE 5 mg PO DAILY 07/11/19 02/15/24 History Insulin Aspart [NovoLOG Flexpen] 35 units SQ AC-TID 07/28/22 02/15/24 History Pantoprazole Sodium [Protonix] 40 mg PO DAILY 07/28/22 02/15/24 History Aspirin EC [Ecotrin Low Dose] 81 mg PO DAILY 02/15/24 02/15/24 History Furosemide [Lasix] 40 mg PO DAILY 02/15/24 02/15/24 History Insulin Glargine,Hum.rec.anlog 30 units SQ BID 02/15/24 02/15/24 History [Lantus Solostar Pen] Allergies Allergy/AdvReac Type Severity Reaction Status Date / Time No Known Allergies Allergy Verified 02/15/24 11:10 Physical Exam Vitals: Vital Signs Temp Pulse Resp BP Pulse Ox 02/15/24 10:09 141 H 20 152/85 91 L 02/15/24 08:14 98.2 F 141 H 22 141/76 91 L 02/15/24 06:41 141 H 20 148/89 92 L 02/15/24 02:00 141 H 20 151/82 94 L 02/14/24 23:00 142 H 20 162/91 92 L 02/14/24 19:14 98.6 F 142 H 20 159/87 90 L Intake and Output 02/14/24 02/15/24 02/15/24 22:59 06:59 14:59 Intake Total 43.417 Balance 43.417 Intake: Intake, IV Titration 43.417 Amount Diltiazem 125 mg In 43.417 Sodium Chloride 0.9% 100 ml @ 5 MG/HR 5 mls/hr IV .Q24H [facility] Rx#:[id number] Other: Weight 93.44 kg patient is awake, comfortable, no acute distress mildly short of breath Examination of the heart S1 and S2 Examination of the lungs bilateral breath sounds are heard with decreased breath sounds at the bases Abdomen is soft obese nontender Examination of lower extremities shows 1+ edema WAX PUMPER exam grossly intact Results - Lab Results Most recent lab results Calcium 9.3 mg/dL (8.4-10.2) 02/14/24 19:35 Magnesium 2.0 mg/dL (1.6-2.3) 02/14/24 19:35 02/15/24 09:33 02/14/24 19:35 Assessment and Plan Assessment: 1. 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 2. Recent episode of acute kidney injury on 12/02/2023 with serum creatinine at 3.47, now resolved with creatinine back to 1.8 mg/dL. 3. A. fib with RVR 4. Acute hypoxic respiratory failure secondary to pneumonia 5. Status post donor renal transplant in 2012 at [facility] maintained on tacrolimus prednisone and Myfortic 6. Anemia of chronic disease rule out iron deficiency Plan: continue with empiric antibiotics. Continue Cardizem drip as per cardiology. Check trough tacrolimus level. continue current dose of tacrolimus prednisone and Myfortic. Continue with current dose of oral Lasix. Repeat labs in a.m. thank you for the consultation. We will continue to follow the patient with you during his hospitalization.
[2024-02-15 12:23] LABS: Glucose,Whole Blood 260 mg/dL (70-110)
[2024-02-15] MEDS: INSULIN ASPART (NovoLOG) 100 UNIT/ML VIAL SQ SCH (12:23)
[2024-02-15] MEDS: IPRATROPIUM-ALBUTEROL 3 ML NEB INHALATION SCH (12:38)
[2024-02-15 17:02] LABS: Glucose,Whole Blood 359 mg/dL (70-110)
[2024-02-15] MEDS: HEPARIN SODIUM 1,000 UN/ML (10ML VL) IV PRN (18:22)
[2024-02-15] MEDS: MYCOPHENOLATE SODIUM DR 180 MG TABLET.DR PO SCH (22:22)
[2024-02-15] MEDS: TACROLIMUS 1 MG CAP PO SCH (22:23)
[2024-02-15] MEDS: hydrALAZINE HCL 50 MG TAB PO SCH (23:02)
[2024-02-15] MEDS: INSULIN DETEMIR (LEVEMIR) 100 UNIT/ML SYR SQ SCH (23:05)
[2024-02-16] MEDS: DOXYCYCLINE 100 MG CAP PO SCH (00:05)
[2024-02-16 02:14] LABS: Basophils % (A) 0 %; Eosinophils % (A) 0 %; HCT 35.3 % (39.0-53.0); HGB 10.4 gm/dL (13.0-17.5); Hypochromasia Marked; Lymphocytes # (A) 0.5 k/uL (1.0-4.8); Lymphocytes % (A) 6 %; MCH 28.7 pg (25.0-35.0); MCHC 29.5 g/dL (31.0-37.0); Mean Platelet Volume 9.4; Monocytes # (A) 0.7 k/uL (0-1.0); Monocytes % (A) 8 %; Neutrophils # (A) 7.6 k/uL (1.3-7.7); Neutrophils % (A) 85 %; Platelet Count 181 k/uL (150-450); RBC 3.64 m/uL (4.30-5.90); RDW 13.7 % (11.5-15.5)
[2024-02-16 07:24] LABS: ABG Base Excess -5.1 mmol/L; ABG HCO3 21 mmol/L (21-25); ABG PCO2 44 mmHg (35-45); ABG PH 7.29 (7.35-7.45); ABG PO2 66 mmHg (83-108); Allen Test Performed? Yes
--- NOTE | 2024-02-16 08:14 | XR ---
EXAMINATION TYPE: XR chest 1V portable DATE OF EXAM: 02/16/2024 Comparison: 02/14/2024 Clinical History: 68-year-old male pneumonia Findings: Median sternotomy wires and post-CABG clips. Left heart margin now obscured by adjacent pleural paren chymal opacity. Worsening perihilar and bilateral patchy confluent airspace opacities. Suspect small effusions. Impression: Interval worsening now with patchy and confluent bilateral airspace disease. Suspect small effusions. Consider development of superimposed pulmonary edema.
[2024-02-16 08:23] LABS: Glucose,Whole Blood 369 mg/dL (70-110)
[2024-02-16] MEDS ORDERED: FUROSEMIDE 40 MG TAB PO SCH (09:00)
[2024-02-16] MEDS ORDERED: FUROSEMIDE 10 MG/ML 4 ML VIAL IV SCH (09:00)
[2024-02-16 09:22] LABS: Glucose,Whole Blood 340 mg/dL (70-110)
[2024-02-16] MEDS: PANTOPRAZOLE 40 MG TABLET PO SCH (09:36)
[2024-02-16] MEDS: allopurinoL 100 MG TAB PO SCH (09:36)
[2024-02-16] MEDS: ATORVASTATIN 40 MG TAB PO SCH (09:36)
[2024-02-16] MEDS: ASPIRIN 81 MG PO SCH (09:36)
[2024-02-16] MEDS: amLODIPine 10 MG TAB PO SCH (09:36)
[2024-02-16] MEDS: TAMSULOSIN 0.4 MG CAP.ER.24H PO SCH (09:37)
[2024-02-16 09:38] LABS: Basophils % (A) 0 %; Eosinophils % (A) 0 %; HGB 10.6 gm/dL (13.0-17.5); Hypochromasia Marked; Lymphocytes # (A) 0.4 k/uL (1.0-4.8); Lymphocytes % (A) 5 %; MCH 29.6 pg (25.0-35.0); MCHC 30.3 g/dL (31.0-37.0); Monocytes # (A) 0.5 k/uL (0-1.0); Monocytes % (A) 6 %; Neutrophils # (A) 7.7 k/uL (1.3-7.7); Neutrophils % (A) 87 %; Platelet Count 205 k/uL (150-450); RBC 3.57 m/uL (4.30-5.90); WBC 8.8 k/uL (3.8-10.6)
[2024-02-16] MEDS: FUROSEMIDE 10 MG/ML 10 ML VIAL IV STA (09:41)
[2024-02-16 09:45] LABS: ABG Base Excess -5.7 mmol/L; ABG HCO3 21 mmol/L (21-25); ABG Oxygen Saturation 96.2 % (94-97); ABG PCO2 45 mmHg (35-45); ABG PH 7.28 (7.35-7.45); ABG PO2 87 mmHg (83-108); Allen Test Performed? Yes
[2024-02-16 09:49] LABS: INR 1.2 (<1.2); Prothrombin Time 12.4 sec (10.0-12.5)
[2024-02-16] MEDS: DEXTROSE 5% IN WATER 100 ML with AMIODARONE 150 MG IV ONE (09:52)
[2024-02-16] MEDS: AMIODARONE 360 MG in DEXTROSE 5% IN WATER 200 ML IV ONE (09:58)
--- NOTE | 2024-02-16 10:34 | P.PN ---
Subjective HISTORY OF PRESENT ILLNESS: This is a 68-year-old male with a past medical history significant for CAD with previous CABG, hypertension, hyperlipidemia, kidney transplant, chronic kidney disease, and diabetes. 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 We have been asked to see the patient in consultation for atrial flutter. Patient examined at the bedside in the emergency room. Patient presented to the hospital with a chief complaint of shortness of breath and a productive cough. Patient was found to have pneumonia and was started on IV antibiotics. Patient was also found to be in atrial flutter/fibrillation with RVR. He was started on IV Cardizem. Patient remains in atrial flutter with RVR at the time of examination with heart rates around 140. He is currently on a Cardizem drip at 10 mg an hour. Patient denies any previous history of atrial flutter/fibrillation. DIAGNOSTICS: - EKG reveals A-fib with RVR. Bedside telemetry reveals atrial flutter with RVR. - Chest xray left lower lung airspace opacity, correlate for pneumonia. - Laboratory data: WBC 6.0. Hemoglobin 10.1. Platelet count 170. Sodium 135. Potassium 4.2. BUN 49. Creatinine 1.87. Troponin 0.069. proBNP 5620. - Current home cardiac medication list has not been updated at the time of dictation - Most recent echocardiogram obtained in July 2019 revealing ejection fraction 55 to 60%, mild aortic regurgitation, severe aortic stenosis, mild MR, mild TR, mild pulmonary hypertension 02/16/2024 Patient examined this morning in the emergency room. Patient was initially scheduled for MIHAELA and cardioversion yesterday. However due to scheduling issues this was rescheduled for today. However the patient's respiratory status has declined overnight and he is not stable enough to have MIHAELA and cardioversion performed today. Patient is currently on a BiPAP at the time of examination. He did receive a dose of IV Lasix this morning per pulmonary medicine. Chest x- ray reveals interval worsening now with patchy and confluent bilateral airspace disease. Suspect small effusions. Consider development of superimposed pulmonary edema. Bedside telemetry reveals atrial flutter with RVR with heart rate in the 130s. He is currently on IV Cardizem. PHYSICAL EXAM: VITAL SIGNS: Reviewed. GENERAL: Well-developed in no mild distress. HEENT: Head is normocephalic. Pupils are equal, round. Sclerae anicteric. Mucous membranes of the mouth are moist. Neck supple. No JVD or thyromegaly LUNGS: Respirations even and unlabored. Lungs diminished HEART: Tachycardic. Irregular rate and rhythm. S1 and S2 heard. + systolic murmur EXTREMITIES: Normal range of motion. No clubbing or cyanosis. Peripheral pulses intact. No lower extremity edema ASSESSMENT: Shortness of breath Left lower lobe pneumonia New onset atrial fibrillation/typical atrial flutter with RVR Acute on chronic heart failure with preserved EF Coronary artery disease with previous CABG, details unknown Abnormal troponin, type II, oxygen supply and demand mismatch, ACS ruled out Hypertension Hyperlipidemia Chronic kidney disease Diabetes History of kidney transplant Severe aortic stenosis PLAN: MIHAELA and cardioversion canceled today due to worsening pulmonary status Begin IV Lasix 40 mg every 12 hours Daily weights, accurate intake and output, and monitoring of kidney function Continue IV Cardizem Discontinue amlodipine as patient is receiving IV Cardizem Begin IV amiodarone bolus and drip per protocol Continue metoprolol tartrate 50 mg 3 times daily Continue telemetry monitoring Further recommendations pending patient course Nurse practitioner note has been reviewed by physician. Signing provider agrees with the documented findings, assessment, and plan of care documented by OUTSIDE PRODUCTION INSPECTOR as a scribe. Objective - Vital Signs Vital signs: Vital Signs Temp 98.3 F 02/16/24 09:30 Pulse 123 H 02/16/24 10:00 Resp 16 02/16/24 10:00 BP 126/87 02/16/24 10:00 Pulse Ox 100 02/16/24 10:00 FiO2 60 02/16/24 09:30 Intake & Output 02/15/24 02/16/24 02/16/24 18:59 06:59 18:59 Intake Total 196.901 286.433 125 Output Total 250 Balance -53.099 286.433 125 Weight 93.44 kg Intake: Intake, IV Titration 196.901 286.433 125 Amount Diltiazem 125 mg In 114.084 119.25 125 Sodium Chloride 0.9% 100 ml @ 5 MG/HR 5 mls/hr IV .Q24H [facility] Rx#:[id number] Heparin Sod,Pork in 0.45% 82.817 167.183 NaCl 25,000 unit In 0.45 % NaCl 1 250ml.bag @ 10.7 UNITS/KG/HR 9.998 mls/hr IV .Q24H [facility] Rx#: [id number] Output: Urine 250 - Labs CBC & Chem 7: 02/16/24 09:30 02/14/24 19:35 Labs: Abnormal Lab Results - Last 24 Hours (Table) 02/14/24 02/15/24 02/15/24 Range/Units 19:35 09:33 12:21 RBC 3.39 L (4.30-5.90) m/uL Hgb 9.7 L (13.0-17.5) gm/dL Hct 32.6 L (39.0-53.0) % MCHC 29.7 L (31.0-37.0) g/dL Lymphocytes # 0.6 L (1.0-4.8) k/uL INR (<1.2) APTT (22.0-30.0) sec ABG pH (7.35-7.45) ABG pO2 (83-108) mmHg ABG O2 Saturation (94-97) % POC Glucose (mg/dL) 260 H (70-110) mg/dL Procalcitonin 0.40 H (0.02-0.09) ng/mL 02/15/24 02/15/24 02/16/24 Range/Units 15:29 17:00 01:18 RBC 3.64 L (4.30-5.90) m/uL Hgb 10.4 L (13.0-17.5) gm/dL Hct 35.3 L (39.0-53.0) % MCHC 29.5 L (31.0-37.0) g/dL Lymphocytes # 0.5 L (1.0-4.8) k/uL INR (<1.2) APTT 30.3 H (22.0-30.0) sec ABG pH (7.35-7.45) ABG pO2 (83-108) mmHg ABG O2 Saturation (94-97) % POC Glucose (mg/dL) 359 H (70-110) mg/dL Procalcitonin (0.02-0.09) ng/mL 02/16/24 02/16/24 02/16/24 Range/Units 01:18 07:20 08:21 RBC (4.30-5.90) m/uL Hgb (13.0-17.5) gm/dL Hct (39.0-53.0) % MCHC (31.0-37.0) g/dL Lymphocytes # (1.0-4.8) k/uL INR (<1.2) APTT 35.6 H (22.0-30.0) sec ABG pH 7.29 L (7.35-7.45) ABG pO2 66 L (83-108) mmHg ABG O2 Saturation 92.0 L (94-97) % POC Glucose (mg/dL) 369 H (70-110) mg/dL Procalcitonin (0.02-0.09) ng/mL 02/16/24 02/16/24 02/16/24 Range/Units 09:20 09:30 09:30 RBC (4.30-5.90) m/uL Hgb (13.0-17.5) gm/dL Hct (39.0-53.0) % MCHC (31.0-37.0) g/dL Lymphocytes # (1.0-4.8) k/uL INR 1.2 H (<1.2) APTT 46.5 H (22.0-30.0) sec ABG pH (7.35-7.45) ABG pO2 (83-108) mmHg ABG O2 Saturation (94-97) % POC Glucose (mg/dL) 340 H (70-110) mg/dL Procalcitonin (0.02-0.09) ng/mL 02/16/24 02/16/24 Range/Units 09:30 09:42 RBC 3.57 L (4.30-5.90) m/uL Hgb 10.6 L (13.0-17.5) gm/dL Hct 35.0 L (39.0-53.0) % MCHC 30.3 L (31.0-37.0) g/dL Lymphocytes # 0.4 L (1.0-4.8) k/uL INR (<1.2) APTT (22.0-30.0) sec ABG pH 7.28 L (7.35-7.45) ABG pO2 (83-108) mmHg ABG O2 Saturation (94-97) % POC Glucose (mg/dL) (70-110) mg/dL Procalcitonin (0.02-0.09) ng/mL Microbiology - Last 24 Hours (Table) 02/15/24 18:20 Gram Stain - Preliminary Sputum
--- NOTE | 2024-02-16 11:05 | P.PN ---
Subjective Progress Note Date: 02/16/24 Principal diagnosis: Respiratory failure. Pulmonary consult dated February 15, 2024. 68-year-old male who was seen in the emergency department, on February 13. He came into the emergency department, complaining of shortness of breath, and, was told by his family doctor, to be evaluated in the emergency department. The patient was found in Dr. Finley's office to have a heart rate of 140 bpm, and to be very short of breath. The patient's heart rate was irregular, and atrial fibrillat ion was suspected. In addition, the patient was found to likely be in congestive heart failure. The patient was initially reluctant to come to the hospital and be admitted, but he finally did. He has a history of previous bypass grafting in 2018, [facility], and a kidney transplant, at the [facility] in 2012. More recently, the patient's renal function has declined. We will check a procalcitonin level. His N-terminal proBNP was 5620. When we saw him, he was on 2 L of oxygen, and receiving Cardizem drip at 10 mg an hour. He appeared to be in moderate distress. He was coughing frequently, and was clearly short of breath. In addition to bypass grafting, and kidney transplantation, the patient has a history of hyperlipidemia, and hypertension, as well as gout. Also, the patient has a history of diabetes mellitus. He has no known allergies. The patient also apparently had a stroke at the age of 42. Current labs include white count 6.1, hemoglobin 9.7, hemat ocrit 32.6, and a normal platelet count. Coagulation studies were normal. Sodium 135, potassium 4.2, chlorides 106, CO2 20, anion gap 9, BUN 49, and creatinine 1.87. These electrolytes are consistent with a 9 anion gap metabolic acidosis. Glucose was 264. Lactic acid was 1. Troponin was 0.069. N-terminal proBNP was 5620. Procalcitonin level was elevated at 0.40. Chest x-ray showed a pattern consistent with either fluid overload/CHF, or possible pneumonia, left lung. Progress note dated February 16, 2024. 68-year-old male with a history of multiple medical problems, who was seen yesterday in the emergency department. He is seen again today in the emergency department, room 5. Unfortunately, the patient's respiratory status is declining, and, he was on high flow nasal cannula, and had to be converted to BiPAP. His BiPAP settings include 15/5, and 60%. The patient is receiving IV heparin via weight-based protocol, and a Cardizem drip at 15 mg an hour. Blood gases done on 50%, show pO2 of 66, pCO2 44, pH is 7.29. The patient will be given Lasix 60 mg IV push. I decided to transfer him to the intensive care unit, for further monitoring and management. His overall prognosis remains poor, and he may end up on mechanical ventilation. White count 8.8, hemoglobin 10.6, hematocrit 35, and platelet count 205,000. PTT is 46.5. Repeat blood gases show pO2 of 87, pCO2 of 45, pH is 7.28. These blood gases were done on his current BiPAP settings. For some reason, there is not a comprehensive metabolic profile today. Sputum is nondiagnostic at this time. Chest x-ray shows a worsening pattern, with patchy and confluent bilateral airspace disease, which could relate to effusions, fluid, pneumonia, etc. Objective - Vital Signs Vital signs: Vital Signs Temp 98.3 F 02/16/24 09:30 Pulse 123 H 02/16/24 10:00 Resp 16 02/16/24 10:00 BP 126/87 02/16/24 10:00 Pulse Ox 100 02/16/24 10:00 FiO2 60 02/16/24 09:30 Intake & Output 02/15/24 02/16/24 02/16/24 18:59 06:59 18:59 Intake Total 196.901 286.433 125 Output Total 250 Balance -53.099 286.433 125 Weight 93.44 kg Intake: Intake, IV Titration 196.901 286.433 125 Amount Diltiazem 125 mg In 114.084 119.25 125 Sodium Chloride 0.9% 100 ml @ 5 MG/HR 5 mls/hr IV .Q24H [facility] Rx#:[id number] Heparin Sod,Pork in 0.45% 82.817 167.183 NaCl 25,000 unit In 0.45 % NaCl 1 250ml.bag @ 10.7 UNITS/KG/HR 9.998 mls/hr IV .Q24H [facility] Rx#: [id number] Output: Urine 250 - Exam Moderate respiratory distress, somnolent, currently on BiPAP. HEENT examination is grossly unremarkable. Mucous membranes are moist. No oral lesions. Neck supple. Full range of motion. No adenopathy thyromegaly or neck vein distention. Cardiovascular examination reveals an irregular rhythm and rate. S1-S2 normal. No S3 or S4. No discernible murmur noted. Heart rate 123 bpm. Lungs reveal bilateral coarse rhonchi. Basilar crackles are noted. No wheezes. Breath sounds are equal bilaterally. Saturations on BiPAP, are 100%. Abdomen obese, but without tenderness. Extremities are intact. No signs or clubbing. There is 1+ edema. Skin is without rash or lesion. Neurologic examination is brief but nonfocal. - Labs CBC & Chem 7: 02/16/24 09:30 02/14/24 19:35 Labs: Abnormal Lab Results - Last 24 Hours (Table) 02/15/24 02/15/24 02/15/24 Range/Units 12:21 15:29 17:00 RBC (4.30-5.90) m/uL Hgb (13.0-17.5) gm/dL Hct (39.0-53.0) % MCHC (31.0-37.0) g/dL Lymphocytes # (1.0-4.8) k/uL INR (<1.2) APTT 30.3 H (22.0-30.0) sec ABG pH (7.35-7.45) ABG pO2 (83-108) mmHg ABG O2 Saturation (94-97) % POC Glucose (mg/dL) 260 H 359 H (70-110) mg/dL 02/16/24 02/16/24 02/16/24 Range/Units 01:18 01:18 07:20 RBC 3.64 L (4.30-5.90) m/uL Hgb 10.4 L (13.0-17.5) gm/dL Hct 35.3 L (39.0-53.0) % MCHC 29.5 L (31.0-37.0) g/dL Lymphocytes # 0.5 L (1.0-4.8) k/uL INR (<1.2) APTT 35.6 H (22.0-30.0) sec ABG pH 7.29 L (7.35-7.45) ABG pO2 66 L (83-108) mmHg ABG O2 Saturation 92.0 L (94-97) % POC Glucose (mg/dL) (70-110) mg/dL 02/16/24 02/16/24 02/16/24 Range/Units 08:21 09:20 09:30 RBC (4.30-5.90) m/uL Hgb (13.0-17.5) gm/dL Hct (39.0-53.0) % MCHC (31.0-37.0) g/dL Lymphocytes # (1.0-4.8) k/uL INR 1.2 H (<1.2) APTT (22.0-30.0) sec ABG pH (7.35-7.45) ABG pO2 (83-108) mmHg ABG O2 Saturation (94-97) % POC Glucose (mg/dL) 369 H 340 H (70-110) mg/dL 02/16/24 02/16/24 02/16/24 Range/Units 09:30 09:30 09:42 RBC 3.57 L (4.30-5.90) m/uL Hgb 10.6 L (13.0-17.5) gm/dL Hct 35.0 L (39.0-53.0) % MCHC 30.3 L (31.0-37.0) g/dL Lymphocytes # 0.4 L (1.0-4.8) k/uL INR (<1.2) APTT 46.5 H (22.0-30.0) sec ABG pH 7.28 L (7.35-7.45) ABG pO2 (83-108) mmHg ABG O2 Saturation (94-97) % POC Glucose (mg/dL) (70-110) mg/dL Microbiology - Last 24 Hours (Table) 02/15/24 18:20 Gram Stain - Preliminary Sputum Assessment and Plan Assessment: Acute hypoxemic respiratory failure, likely multifactorial, in part related to atrial fibrillation/RVR, CHF/fluid overload, and possible pneumonia. History of kidney transplantation, 2013, at [facility]. Previous bypass grafting, 2019, [facility]. History of hypertension. History of hyperlipidemia. History of diabetes mellitus. History of gout. History of CVA, at age 42. Plan: Plan dated February 15, 2024. The patient is seen in the emergency department, room 5. He is currently on a Cardizem drip at 10 mg an hour, and O2 by nasal cannula at 2 L. The patient does look somewhat uncomfortable, and has a frequent cough. Labs, x-rays, and medications are reviewed. The patient is receiving azithromycin, and Rocephin for possible pneumonia. In addition, the patient is on the Cardizem drip at 10 mg an hour. The patient is also receiving IV heparin per protocol, and metoprolol. I will add some breathing treatments to the patient's regimen. Additional recommendations and suggestions are forthcoming. Prognosis is certainly guarded. Plan dated February 16, 2024. I was notified by the nurse in the emergency department, the patient's respiratory status had declined. I recommended BiPAP therapy, with settings of 15/5, and 60%. The patient was seen in the emergency department initially, and, the patient is transferred up to the intensive care unit, for further monitoring and management. The patient had a repeat blood gas, which showed stability, but, the patient's overall condition remains tenuous. He remains on IV heparin, and Cardizem drip at 15 mg an hour. I did speak to his sister, Makenzie Busby, and told her that the patient may end up on mechanical ventilation. Labs, x-rays, and medications are reviewed. Prognosis is very guarded. We will continue to follow make recommendations along the way. I am going to DC the patient's prednisone and start him on hydrocortisone, at stress doses. Time with Patient: Greater than 30
[2024-02-16] MEDS ORDERED: NALOXONE 0.4 MG/ML 1 ML VIAL IV PRN (11:21)
[2024-02-16 11:36] LABS: ALT 70 U/L (4-49); AST 33 U/L (17-59); African American GFR (CKD) 29 (>60 ml/min/1.73 sqM); Albumin 3.1 g/dL (3.5-5.0); Alkaline Phosphatase 126 U/L (38-126); Anion Gap 13 mmol/L; Blood Urea Nitrogen 65 mg/dL (9-20); Calcium 9.8 mg/dL (8.4-10.2); Carbon Dioxide 18 mmol/L (22-30); Chloride 105 mmol/L (98-107); Glucose 361 mg/dL (74-99); Non-African American GFR(CKD) 25 (>60 ml/min/1.73 sqM); Potassium 5.4 mmol/L (3.5-5.1); Sodium 136 mmol/L (137-145); Total Bilirubin 0.6 mg/dL (0.2-1.3); Total Protein 5.7 g/dL (6.3-8.2)
[2024-02-16 11:48] LABS: Glucose,Whole Blood 389 mg/dL (70-110)
[2024-02-16] MEDS: HYDROCORTISONE SUCCINATE 100 MG/2 ML VIAL IV SCH (12:25)
--- NOTE | 2024-02-16 12:50 | CA ---
Transthoracic Echo Report Name: Graham Zepeda Age: 68 Gender: M : 1955 Exam Date: 02/16/2024 10:20 Exam Location: [facility] Ht (in): 70 Wt (lb): 206 Ordering Physician: Mario Finley MD Attending/Referring Phys: Coin Box Inspector Dolores Orozco RDCS Procedure CPT: Indications: lvfunction Cardiac Hx: Technical Quality: Technically difficult study Contrast 1: Definity Total Dose (mL): 2 Contrast 2: Total Dose (mL): MEASUREMENTS (Male / Female) Normal Values 2D ECHO LV Diastolic Diameter PLAX 3.3 cm 4.2 - 5.9 / 3.9 - 5.3 cm LV Systolic Diameter PLAX 2.5 cm IVS Diastolic Thickness 1.9 cm 0.6 - 1.0 / 0.6 - 0.9 cm LVPW Diastolic Thickness 1.9 cm 0.6 - 1.0 / 0.6 - 0.9 cm LV Relative Wall Thickness 1.1 LVOT Diameter 1.6 cm LA Volume 139.9 cm??? 18 - 58 / 22 - 52 cm??? LA Volume Index 64.5 cm???/m??? 16 - 28 cm???/m??? M-MODE Aortic Root Diameter MM 2.6 cm LA Systolic Diameter MM 5.6 cm LA Ao Ratio MM 2.1 DOPPLER AV Peak Velocity 278.3 cm/s AV Peak Gradient 31.0 mmHg AV Mean Velocity 179.0 cm/s AV Mean Gradient 15.2 mmHg AV Velocity Time Integral 45.6 cm LVOT Peak Velocity 126.4 cm/s LVOT Peak Gradient 6.4 mmHg LVOT Velocity Time Integral 18.5 cm LVOT Stroke Volume 38.9 cm??? LVOT Stroke Volume Index 18.4 ml/m??? LVOT Cardiac Index 1970.3 cm???/min???m??? AV Area Cont Eq vti 0.9 cm??? AV Area Cont Eq pk 1.0 cm??? MV Peak Velocity 220.7 cm/s MV Peak Gradient 19.5 mmHg MV Mean Velocity 164.5 cm/s MV Mean Gradient 11.7 mmHg MV Velocity Time Integral 45.7 cm MV Area PHT 4.3 cm??? Mitral E Point Velocity 179.4 cm/s Mitral A Point Velocity 5.2 cm/s Mitral E to A Ratio 34.7 MV Deceleration Time 176.4 ms TR Peak Velocity 293.5 cm/s TR Peak Gradient 34.5 mmHg Right Ventricular Systolic Press 42.3 mmHg FINDINGS Left Ventricle Severely increased left ventricular wall thickness. Left ventricular ejection fraction is estimated at 50-55 %. Right Ventricle Right ventricle not well visualized. Mild pulmonary hypertension. Right ventricular systolic pressure estimated at 42 mm hg. Right Atrium Right atrium not well visualized. Left Atrium Severely increased left atrial volume. Mildly increased left atrial area. Mitral Valve Mitral valve thickened. severe mitral annular calcification. Moderate mitral regurgitation. Aortic Valve Normally functioning bioprosthetic aortic valve without stenosis with a peak velocity of 2.7 m/s, peak gradient 31 mmHg, mean gradient 15 mmHg, and estimated aortic valve area of 1 cm???. Bioprosthetic valve not well-visualized Tricuspid Valve Structurally normal tricuspid valve. Moderate tricuspid regurgitation. Pulmonic Valve Pulmonic valve not well visualized. Pericardium No pericardial effusion. Aorta Normal size aortic root and proximal ascending aorta. CONCLUSIONS Technically difficult study. Definity ECHO contrast used for improved visualization of the endocardial borders (inadequate visualization of two or more contiguous segments). Left ventricular systolic function borderline normal Severe mitral and is calcification with moderate mitral regurgitation Moderate tricuspid regurgitation with mild pulmonary hypertension Previewed by: Dr. James Garcia MD (Electronically Signed) Final Date: 16 Feb 2024 12:49
[2024-02-16 15:30] LABS: ABG Base Excess -2.5 mmol/L; ABG HCO3 23 mmol/L (21-25); ABG Oxygen Saturation 94.6 % (94-97); ABG PCO2 44 mmHg (35-45); ABG PH 7.34 (7.35-7.45); ABG PO2 70 mmHg (83-108); Allen Test Performed? Yes
[2024-02-16] MEDS: AMIODARONE 450 MG in DEXTROSE 5% IN WATER 250 ML IV SCH (15:58)
[2024-02-16 17:55] LABS: Glucose,Whole Blood 180 mg/dL (70-110)
--- NOTE | 2024-02-16 18:36 | P.PN ---
Subjective Patient is seen for follow-up for acute kidney injury and chronic kidney disease. Patient was transferred to ICU. Currently maintained on BiPAP. Urine output at 40 to 50 cc an hour. Heart rate about 120/min. No significant hypotension noted. Patient remains on amiodarone drip and Cardizem drip. Serum creatinine increased to 2.5 mg/dL today. Chest x-ray shows pulmonary vascular congestion. Patient is maintained on Lasix 40 mg IV every 12 hours. Objective - Vital Signs Vital signs: Vital Signs Temp 97.4 F L 02/16/24 16:00 Pulse 126 H 02/16/24 18:00 Resp 17 02/16/24 18:00 BP 119/57 02/16/24 18:00 Pulse Ox 96 02/16/24 18:00 FiO2 60 02/16/24 16:00 Intake & Output 02/15/24 02/16/24 02/16/24 18:59 06:59 18:59 Intake Total 196.901 286.433 239.75 Output Total 250 570 Balance -53.099 286.433 -330.25 Weight 93.44 kg Intake: Intake, IV Titration 196.901 286.433 239.75 Amount Diltiazem 125 mg In 114.084 119.25 239.75 Sodium Chloride 0.9% 100 ml @ 5 MG/HR 5 mls/hr IV .Q24H [facility] Rx#:[id number] Heparin Sod,Pork in 0.45% 82.817 167.183 NaCl 25,000 unit In 0.45 % NaCl 1 250ml.bag @ 10.7 UNITS/KG/HR 9.998 mls/hr IV .Q24H [facility] Rx#: [id number] Output: Urine 250 570 Other: Voiding Method Indwelling Catheter - Exam patient is sleeping, maintained on BiPAP. No acute distress Examination of the heart S1 and S2 Examination of the lungs bilateral breath sounds are heard with decreased breath sounds at the bases Abdomen is soft obese nontender Examination of lower extremities shows 1+ edema [employer] exam grossly intact - Labs CBC & Chem 7: 02/16/24 09:30 02/16/24 09:30 Labs: Abnormal Lab Results - Last 24 Hours (Table) 02/16/24 02/16/24 02/16/24 Range/Units 01:18 01:18 07:20 RBC 3.64 L (4.30-5.90) m/uL Hgb 10.4 L (13.0-17.5) gm/dL Hct 35.3 L (39.0-53.0) % MCHC 29.5 L (31.0-37.0) g/dL Lymphocytes # 0.5 L (1.0-4.8) k/uL INR (<1.2) APTT 35.6 H (22.0-30.0) sec ABG pH 7.29 L (7.35-7.45) ABG pO2 66 L (83-108) mmHg ABG O2 Saturation 92.0 L (94-97) % Sodium (137-145) mmol/L Potassium (3.5-5.1) mmol/L Carbon Dioxide (22-30) mmol/L BUN (9-20) mg/dL Creatinine (0.66-1.25) mg/dL Glucose (74-99) mg/dL POC Glucose (mg/dL) (70-110) mg/dL ALT (4-49) U/L Total Protein (6.3-8.2) g/dL Albumin (3.5-5.0) g/dL 02/16/24 02/16/24 02/16/24 Range/Units 08:21 09:20 09:30 RBC (4.30-5.90) m/uL Hgb (13.0-17.5) gm/dL Hct (39.0-53.0) % MCHC (31.0-37.0) g/dL Lymphocytes # (1.0-4.8) k/uL INR (<1.2) APTT (22.0-30.0) sec ABG pH (7.35-7.45) ABG pO2 (83-108) mmHg ABG O2 Saturation (94-97) % Sodium 136 L (137-145) mmol/L Potassium 5.4 H (3.5-5.1) mmol/L Carbon Dioxide 18 L (22-30) mmol/L BUN 65 H (9-20) mg/dL Creatinine 2.53 H (0.66-1.25) mg/dL Glucose 361 H (74-99) mg/dL POC Glucose (mg/dL) 369 H 340 H (70-110) mg/dL ALT 70 H (4-49) U/L Total Protein 5.7 L (6.3-8.2) g/dL Albumin 3.1 L (3.5-5.0) g/dL 02/16/24 02/16/24 02/16/24 Range/Units 09:30 09:30 09:30 RBC 3.57 L (4.30-5.90) m/uL Hgb 10.6 L (13.0-17.5) gm/dL Hct 35.0 L (39.0-53.0) % MCHC 30.3 L (31.0-37.0) g/dL Lymphocytes # 0.4 L (1.0-4.8) k/uL INR 1.2 H (<1.2) APTT 46.5 H (22.0-30.0) sec ABG pH (7.35-7.45) ABG pO2 (83-108) mmHg ABG O2 Saturation (94-97) % Sodium (137-145) mmol/L Potassium (3.5-5.1) mmol/L Carbon Dioxide (22-30) mmol/L BUN (9-20) mg/dL Creatinine (0.66-1.25) mg/dL Glucose (74-99) mg/dL POC Glucose (mg/dL) (70-110) mg/dL ALT (4-49) U/L Total Protein (6.3-8.2) g/dL Albumin (3.5-5.0) g/dL 02/16/24 02/16/24 02/16/24 Range/Units 09:42 11:46 15:27 RBC (4.30-5.90) m/uL Hgb (13.0-17.5) gm/dL Hct (39.0-53.0) % MCHC (31.0-37.0) g/dL Lymphocytes # (1.0-4.8) k/uL INR (<1.2) APTT (22.0-30.0) sec ABG pH 7.28 L 7.34 L (7.35-7.45) ABG pO2 70 L (83-108) mmHg ABG O2 Saturation (94-97) % Sodium (137-145) mmol/L Potassium (3.5-5.1) mmol/L Carbon Dioxide (22-30) mmol/L BUN (9-20) mg/dL Creatinine (0.66-1.25) mg/dL Glucose (74-99) mg/dL POC Glucose (mg/dL) 389 H (70-110) mg/dL ALT (4-49) U/L Total Protein (6.3-8.2) g/dL Albumin (3.5-5.0) g/dL 02/16/24 Range/Units 17:54 RBC (4.30-5.90) m/uL Hgb (13.0-17.5) gm/dL Hct (39.0-53.0) % MCHC (31.0-37.0) g/dL Lymphocytes # (1.0-4.8) k/uL INR (<1.2) APTT (22.0-30.0) sec ABG pH (7.35-7.45) ABG pO2 (83-108) mmHg ABG O2 Saturation (94-97) % Sodium (137-145) mmol/L Potassium (3.5-5.1) mmol/L Carbon Dioxide (22-30) mmol/L BUN (9-20) mg/dL Creatinine (0.66-1.25) mg/dL Glucose (74-99) mg/dL POC Glucose (mg/dL) 180 H (70-110) mg/dL ALT (4-49) U/L Total Protein (6.3-8.2) g/dL Albumin (3.5-5.0) g/dL Microbiology - Last 24 Hours (Table) 02/15/24 18:20 Gram Stain - Preliminary Sputum Assessment and Plan Assessment: 1. 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 2. Recent episode of acute kidney injury on 12/02/2023 with serum creatinine at 3.47, now resolved with creatinine back to 1.8 mg/dL. 3. A. fib with RVR 4. Acute hypoxic respiratory failure secondary to pneumonia 5. Status post donor renal transplant in 2012 at [facility] maintained on tacrolimus prednisone and Myfortic 6. Anemia of chronic disease rule out iron deficiency 7. Acute kidney injury, cardiorenal and associated with hemodynamic instability from A-fib/RVR. Nonoliguric ATN 8. Metabolic acidosis associated with acute kidney injury and calcineurin inhibitors 9. Mild hyperkalemia associated with metabolic acidosis and calcineurin inhibi tor use Plan: continue with empiric antibiotics. Continue current dose of IV Lasix Follow-up on tacrolimus level Add oral sodium bicarb Repeat labs in a.m.
[2024-02-16] MEDS: SODIUM BICARBONATE TAB 650 MG TAB PO SCH (20:56)
[2024-02-16] MEDS: FUROSEMIDE 10 MG/ML 4 ML VIAL IV SCH (20:56)
[2024-02-17 01:49] LABS: Glucose,Whole Blood 84 mg/dL (70-110)
[2024-02-17 05:06] LABS: Basophils % (A) 0 %; Eosinophils % (A) 0 %; HCT 30.6 % (39.0-53.0); HGB 9.2 gm/dL (13.0-17.5); Hypochromasia Marked; Lymphocytes # (A) 0.4 k/uL (1.0-4.8); Lymphocytes % (A) 5 %; MCH 28.8 pg (25.0-35.0); MCHC 30.2 g/dL (31.0-37.0); MCV 95.3 fL (80.0-100.0); Monocytes # (A) 0.3 k/uL (0-1.0); Monocytes % (A) 3 %; Neutrophils # (A) 7.9 k/uL (1.3-7.7); Neutrophils % (A) 91 %; Platelet Count 169 k/uL (150-450); RBC 3.22 m/uL (4.30-5.90); RDW 13.9 % (11.5-15.5); WBC 8.7 k/uL (3.8-10.6)
[2024-02-17 05:21] LABS: African American GFR (CKD) 27 (>60 ml/min/1.73 sqM); Anion Gap 7 mmol/L; Blood Urea Nitrogen 75 mg/dL (9-20); Calcium 9.5 mg/dL (8.4-10.2); Carbon Dioxide 20 mmol/L (22-30); Chloride 108 mmol/L (98-107); Glucose 88 mg/dL (74-99); Non-African American GFR(CKD) 24 (>60 ml/min/1.73 sqM); Potassium 4.3 mmol/L (3.5-5.1); Sodium 135 mmol/L (137-145)
--- NOTE | 2024-02-17 05:49 | P.PN ---
Subjective Progress Note Date: 02/16/24 HISTORY OF PRESENT ILLNESS: 68-year-old office patient with active medical history of atherosclerotic heart disease post CABG, end-stage renal disease post renal transplant at [facility] over 10 years ago, chronic stage IIIb kidney disease, hypertension, hyperlipidemia, chronic neuropathy, obesity, obstructive sleep apnea, mild peripheral arterial disease, who was back at [facility] few months ago for worsening kidney function was hospitalized for few days. He was not in the office on 02/14/2024 with complaining of severe dyspnea and shortness of b reath with cough productive phlegm not been able to lay down flat mild fluid overload with worsening PND and orthopnea was having significant tachypnea and tachycardia with hypoxia. Pulse ox was less than 90 percentile looks the same time and failure but might have double pneumonia. Patient was sent to the emergency room at [facility] where was seen and evaluated Surprisingly h is hemoglobin came back at 10.1 with white blood cell 6.0 creatinine 1.87 close to the last creatinine he has before leaving [facility] a few months ago his blood sugar was elevated at 264 with mildly elevated troponin 0.069 BNP 8 6620. His EKG from the office and from the emergency department showed atrial flutter with pulse rate running at 142 bpm quite irregular. Chest x-ray shows l eft lower lung airspace opacification correlate with pneumonia and mild congestive heart failure as well. Patient was started on IV antibiotics with ceftriaxone 2 g Cardizem drip was started to bring his pulse rate down not helpful or successful at the time. Consult cardiology and pulmonary patient admitted to the hospital. 02/16/2024: The patient remained extremely sick require to be move on to BiPAP, was transferred to the intensive care unit still tachycardic with pulse rate around 140 bpm close schedule initially to go for cardioversion after transesophageal echocardiogram but with his respiratory failure on BiPAP not able to do this today patient is not stable continue current management for now patient manage higher dose of Cardizem was not started on amiodarone yet. Still have significant pulmonary edema being on diuretics 4. Much worsening kidney function compared to before and BNP still elevated. Continue to be treated for left lower lobe pneumonia there is transthoracic echocardiogram showed severely increased left ventricular wall thickening with left ventricular ejection fraction of 50-55 percentile with moderate mitral regurgitation who has b ioprosthetic aortic valve not well-visualized with his valve area is only 1 cm.. Please continue on azithromycin and Rocephin for possible pneumonia left-sided: Heparin drip and Cardizem drip at this point does not require any vasopressor. Will continue to stabilize patient hopefully pulse rate will drop down to be more stable to be cardioversion eventually will continue BiPAP continue ICU management. REVIEW OF SYSTEMS: CONSTITUTIONAL: Morbid obesity and mild respiratory distress. EYES: No icterus sclerae, no conjunctivitis. EARS, NOSE, MOUTH, THROAT, and FACE: No sore throat, lymphadenopathy, carotid bruits or deformity. RESPIRATORY: Positive shortness of breath cough or wheezes. CARDIOVASCULAR: Positive PND orthopnea palpitation. GASTROINTESTINAL: No Abd pain, Nausea or vomiting, no Diarrhea or constipation, No GI Bleed, no distention or masses. GENITOURINARY: No polyuria nocturia without any hematuria. INTEGUMENT/BREAST: Negative for any muscular injury with mild osteoarthritis.. HEMATOLOGIC/LYMPHATIC: Chronic anemia with no bleeding. MUSCULOSKELTAL: Negative for Myalgia or arthralgia. NEURLOGICAL: No LOC, Sz or syncope, blurred vision dizziness or abnormality.. BEHAVIORAL/PSYCH: Negative. ENDOCRINE: Negative. PHYSICAL EXAMINATION: General Appearance: Overweight in mild respiratory distress. Neck HEENT: Supple, no lymphadenopathy, no thyroid enlargement, no carotid bruits. Lungs: Decreased breath sound bilaterally especially the left side with fine rhonchi positive crackles in the bases positive mild inspiratory expiratory wheezes. Chest Wall: Decreased expansion with deep inspiration no tenderness and no deformity was found on exam, no costochondral pain or discomfort. Heart: Irregular rate and rhythm, S1, S2 positive S3 positive PVCs. Back: Symmetric, no curvature, ROM normal, no CVA tenderness. Abdomen: Soft, non-tender, bowel sounds active all four quadrants, no masses, no organomegaly. Extremities: Extremities normal, atraumatic, no cyanosis positive edema. Pulses: 2+ and symmetric. Skin: Skin color, texture, tugor normal, no rashes or lesions. Neurologic: Alert oriented x3 cranial nerves II through XII intact, no motor deficit, no abnormal balance or gait. ASSESSMENT AND PLAN: _Acute respiratory failure: Combination of congestive heart failure along with arrhythmia and left lower lobe pneumonia. Was placed on BiPAP continue diuretics. _Left lower lobe pneumonia: Remain on azithromycin and Rocephin continue oxygenation to keep his pulse ox above 90 percentile. _Tachycardia with a flutter pulse rate still rapid around 140, was supposed to have cardioversion after transesophageal echocardiogram is not able to because of his BiPAP will continue current management waiting for his improvement to go for cardioversion meanwhile continue Cardizem drip cardiology has not put him on amiodarone yet or any entire arrhythmic. _Congestive heart failure acute with mild exacerbation mostly systolic dysfunction at this point he is known to have coronary artery disease post CABG his ejection fraction last known 50 percentile echocardiogram will be ordered for the morning will continue diuretics as well. _Valvular heart disease: With severe mitral regurgitation and bio static aortic valve not well-visualized but size only 1.0 cm. Continue medical management for now need different type of echo for more active seen on the aortic valve. _Type 2 diabetes not well-controlled noncompliance to medication has been mostly on Lantus 70 units daily along with NovoLog 35 units AC meals plus sliding scales coverage. Changing his insulin dose currently and if needed will switch patient to insulin drip. _End-stage renal disease posttransplant remain on antirejection drugs will consult nephrology continue mycophenolate acid along with Prograf and still on prednisone 5 mg daily. _Hypertension:_Has been on hydralazine 50 mg twice a day, amlodipine 10 mg daily, metoprolol titrate 50 mg 3 times a day. _Hyperlipidemia: Has been on Lipitor 40 mg a day currently medication. _BPH watch for any urinary retention. _Stage IIIb chronic kidney disease posttransplant continue hydration avoid nephrotoxic agent type II preserve any kidney function. CODE STATUS: Full code. Prognosis: Fair. Discussion: Moving to the ICU continue BiPAP continue current aggressive management helping to stabilize patient to be able to go home to do cardioversion eventually which would help, also will consult at this point specially with his kidney function and his transplant continue to see nephrology continue aggressive management probably running his chemistry twice a day with 90 such a bad idea. Keep watching his urine output. Objective - Vital Signs Vital signs: Vital Signs Temp 98.6 F 02/15/24 17:54 Pulse 130 H 02/16/24 06:40 Resp 22 02/16/24 06:40 BP 141/80 02/16/24 06:40 Pulse Ox 91 L 02/16/24 06:40 FiO2 Intake & Output 02/15/24 02/15/24 02/16/24 06:59 18:59 06:59 Intake Total 196.901 231.685 Output Total 250 Balance -53.099 231.685 Weight 93.44 kg Intake: Intake, IV Titration 196.901 231.685 Amount Diltiazem 125 mg In 114.084 119.25 Sodium Chloride 0.9% 100 ml @ 5 MG/HR 5 mls/hr IV .Q24H [facility]U Rx#:[id number] Heparin Sod,Pork in 0.45% 82.817 112.435 NaCl 25,000 unit In 0.45 % NaCl 1 250ml.bag @ 10.7 UNITS/KG/HR 9.998 mls/hr IV .Q24H [facility]U Rx#: [id number] Output: Urine 250 - Labs CBC & Chem 7: 02/17/24 04:39 02/17/24 04:39 Labs: Abnormal Lab Results - Last 24 Hours (Table) 02/14/24 02/15/24 02/15/24 Range/Units 19:35 09:33 12:21 RBC 3.39 L (4.30-5.90) m/uL Hgb 9.7 L (13.0-17.5) gm/dL Hct 32.6 L (39.0-53.0) % MCHC 29.7 L (31.0-37.0) g/dL Lymphocytes # 0.6 L (1.0-4.8) k/uL APTT (22.0-30.0) sec POC Glucose (mg/dL) 260 H (70-110) mg/dL Procalcitonin 0.40 H (0.02-0.09) ng/mL 02/15/24 02/15/24 02/16/24 Range/Units 15:29 17:00 01:18 RBC 3.64 L (4.30-5.90) m/uL Hgb 10.4 L (13.0-17.5) gm/dL Hct 35.3 L (39.0-53.0) % MCHC 29.5 L (31.0-37.0) g/dL Lymphocytes # 0.5 L (1.0-4.8) k/uL APTT 30.3 H (22.0-30.0) sec POC Glucose (mg/dL) 359 H (70-110) mg/dL Procalcitonin (0.02-0.09) ng/mL 02/16/24 Range/Units 01:18 RBC (4.30-5.90) m/uL Hgb (13.0-17.5) gm/dL Hct (39.0-53.0) % MCHC (31.0-37.0) g/dL Lymphocytes # (1.0-4.8) k/uL APTT 35.6 H (22.0-30.0) sec POC Glucose (mg/dL) (70-110) mg/dL Procalcitonin (0.02-0.09) ng/mL
[2024-02-17 06:20] LABS: Glucose,Whole Blood 90 mg/dL (70-110)
--- NOTE | 2024-02-17 07:20 | P.PN ---
Progress Note - Text Progress Note Date: 02/17/24 HPI: [This gentleman has history of CAD with prior bypass surgery and probable aortic valve replacement with a bioprosthetic valve. He also is a recipient of a kidney with creatinine that runs in the range of 2.0-2.5 according to the patient. He had a kidney transplant done in [place]. He came into the hospital with increasing shortness of breath was in atrial flutter with a 2 is to 1 conduction and a rate of about 140 bpm. He was initially advised to have a transesophageal echo and cardioversion but because of logistics of the procedure was not performed on arrival then his pneumonia got worse he became more hypoxic requiring BiPAP. This morning in the ICU he is hemodynamically s table his oxygenation is better he is clinically better more alert responds to questions appropriately. If his BiPAP can be discontinued and he is more stable we can proceed with a transesophageal echo and electrical cardioversion. From a pneumonia standpoint he is on appropriate antibiotics. He also is on some diuresis and this also seems to have helped. We will continue diuresis for 1 more day with Lasix 40 mg every 12 hours along with antibiotics and hopefully perform transesophageal echo and cardioversion today. I will await further input from Dr. Ly. Chest x-ray shows modest improvement compared to yesterday]. PHYSICIAL EXAM: [Hemodynamically stable JVD modestly elevated S1-S2 heard normally with a short systolic murmur at the base Sumi preserved second heart sound lungs reveal scattered rales bilaterally abdomen is soft and nontender lower extremities reveal diminished pulses Central nervous system no focal deficits]. IMPRESSION: 1. [Bilateral pneumonia with hypoxia on BiPAP]. 2. [Atrial flutter with a 2 is to 1 conduction on amiodarone with some improvement in rate]. 3. [S/p bypass surgery and probable bioprosthetic aortic valve replacement]. 4. [S/p kidney transplant]. 5. [Hypertension]. RECOMMENDATIONS: [ If his BiPAP can be discontinued and he is more stable we can proceed with a transesophageal echo and electrical cardioversion. From a pneumonia standpoint he is on appropriate antibiotics. He also is on some diuresis and this also seems to have helped. We will continue diuresis for 1 more day with Lasix 40 mg every 12 hours along with antibiotics and hopefully perform transesophageal echo and cardioversion today. I will await further input from Dr. Ly. Chest x-ray shows modest improvement compared to yesterday]. ].
--- NOTE | 2024-02-17 08:26 | P.PN ---
Subjective Progress Note Date: 02/17/24 HISTORY OF PRESENT ILLNESS: 68-year-old office patient with active medical history of atherosclerotic heart disease post CABG, end-stage renal disease post renal transplant at [facility] over 10 years ago, chronic stage IIIb kidney disease, hypertension, hyperlipidemia, chronic neuropathy, obesity, obstructive sleep apnea, mild peripheral arterial disease, who was back at [facility] few months ago for worsening kidney function was hospitalized for few days. He was not in the office on 02/14/2024 with complaining of severe dyspnea and shortness of b reath with cough productive phlegm not been able to lay down flat mild fluid overload with worsening PND and orthopnea was having significant tachypnea and tachycardia with hypoxia. Pulse ox was less than 90 percentile looks the same time and failure but might have double pneumonia. Patient was sent to the emergency room at [facility] where was seen and evaluated Surprisingly h is hemoglobin came back at 10.1 with white blood cell 6.0 creatinine 1.87 close to the last creatinine he has before leaving [facility] a few months ago his blood sugar was elevated at 264 with mildly elevated troponin 0.069 BNP 8 6620. His EKG from the office and from the emergency department showed atrial flutter with pulse rate running at 142 bpm quite irregular. Chest x-ray shows l eft lower lung airspace opacification correlate with pneumonia and mild congestive heart failure as well. Patient was started on IV antibiotics with ceftriaxone 2 g Cardizem drip was started to bring his pulse rate down not helpful or successful at the time. Consult cardiology and pulmonary patient admitted to the hospital. 02/16/2024: The patient remained extremely sick require to be move on to BiPAP, was transferred to the intensive care unit still tachycardic with pulse rate around 140 bpm close schedule initially to go for cardioversion after transesophageal echocardiogram but with his respiratory failure on BiPAP not able to do this today patient is not stable continue current management for now patient manage higher dose of Cardizem was not started on amiodarone yet. Still have significant pulmonary edema being on diuretics 4. Much worsening kidney function compared to before and BNP still elevated. Continue to be treated for left lower lobe pneumonia there is transthoracic echocardiogram showed severely increased left ventricular wall thickening with left ventricular ejection fraction of 50-55 percentile with moderate mitral regurgitation who has b ioprosthetic aortic valve not well-visualized with his valve area is only 1 cm.. Please continue on azithromycin and Rocephin for possible pneumonia left-sided: Heparin drip and Cardizem drip at this point does not require any vasopressor. Will continue to stabilize patient hopefully pulse rate will drop down to be more stable to be cardioversion eventually will continue BiPAP continue ICU management. 02/17/2024: Patient is off BiPAP today pulse rate is 120s still in a flutter, plan with cardiology to do transesophageal echocardiogram and if there is no thrombus is given the going for cardioversion today. Still on IV antibiotics, still on high flow oxygen at this point was started on amiodarone 5 to bring his pulse rate down little bit. His kidney function slightly was down from before with creatinine up to 2.63. Continue to make good urine output so far. My fear with his transesophageal echocardiogram or any testing that he has an extremely severe spinal stenosis and problem with his cervical spine second third and fourth we have just to be careful tilting his neck backwards specially required intubation. Patient shortness of breath has been much better and is not having any chest pain today. Remain in ICU require more help still seen nephrology inside intensive care pulmonary and cardiology. REVIEW OF SYSTEMS: CONSTITUTIONAL: Morbid obesity and mild respiratory distress. EYES: No icterus sclerae, no conjunctivitis. EARS, NOSE, MOUTH, THROAT, and FACE: No sore throat, lymphadenopathy, carotid bruits or deformity. RESPIRATORY: Positive shortness of breath cough or wheezes. CARDIOVASCULAR: Positive PND orthopnea palpitation. GASTROINTESTINAL: No Abd pain, Nausea or vomiting, no Diarrhea or constipation, No GI Bleed, no distention or masses. GENITOURINARY: No polyuria nocturia without any hematuria. INTEGUMENT/BREAST: Negative for any muscular injury with mild osteoarthritis.. HEMATOLOGIC/LYMPHATIC: Chronic anemia with no bleeding. MUSCULOSKELTAL: Negative for Myalgia or arthralgia. NEURLOGICAL: No LOC, Sz or syncope, blurred vision dizziness or abnormality.. BEHAVIORAL/PSYCH: Negative. ENDOCRINE: Negative. PHYSICAL EXAMINATION: General Appearance: Overweight in mild respiratory distress. Neck HEENT: Supple, no lymphadenopathy, no thyroid enlargement, no carotid bruits. Lungs: Decreased breath sound bilaterally especially the left side with fine rhonchi positive crackles in the bases positive mild inspiratory expiratory wheezes. Chest Wall: Decreased expansion with deep inspiration no tenderness and no deformity was found on exam, no costochondral pain or discomfort. Heart: Irregular rate and rhythm, S1, S2 positive S3 positive PVCs. Back: Symmetric, no curvature, ROM normal, no CVA tenderness. Abdomen: Soft, non-tender, bowel sounds active all four quadrants, no masses, no organomegaly. Extremities: Extremities normal, atraumatic, no cyanosis positive edema. Pulses: 2+ and symmetric. Skin: Skin color, texture, tugor normal, no rashes or lesions. Neurologic: Alert oriented x3 cranial nerves II through XII intact, no motor deficit, no abnormal balance or gait. ASSESSMENT AND PLAN: _Acute respiratory failure: Combination of congestive heart failure along with arrhythmia and left lower lobe pneumonia. Much better today off BiPAP still on high flow oxygen. _Left lower lobe pneumonia: Remain on azithromycin and Rocephin continue oxygenation to keep his pulse ox above 90 percentile. Clinically has improved significantly but oxygen level is better. _A flutter with rapid ventricular response: Patient will be going for transesophageal echocardiogram and cardioversion today, remain on Cardizem and amiodarone still on metoprolol as well. _Congestive heart failure acute with mild exacerbation mostly systolic dysfunction at this point he is known to have coronary artery disease post CABG his ejection fraction last known 50 percentile echocardiogram will be ordered for the morning will continue diuretics as well. _Valvular heart disease: With severe mitral regurgitation and bio static aortic valve not well-visualized but size only 1.0 cm. Continue medical management for now need different type of echo for more active seen on the aortic valve. _Type 2 diabetes not well-controlled noncompliance to medication has been mostly on Lantus 70 units daily along with NovoLog 35 units AC meals plus sliding scales coverage. Changing his insulin dose currently and if needed will switch patient to insulin drip. _End-stage renal disease posttransplant remain on antirejection drugs will consult nephrology continue mycophenolate acid along with Prograf and still on prednisone 5 mg daily. Does not require any dialysis his kidney function is down His baseline has been making good urine output at this point. _Hypertension:_Has been on hydralazine 50 mg twice a day, amlodipine 10 mg daily, metoprolol titrate 50 mg 3 times a day. _Hyperlipidemia: Has been on Lipitor 40 mg a day currently medication. _BPH watch for any urinary retention. _Stage IIIb chronic kidney disease posttransplant continue hydration avoid nephrotoxic agent type II preserve any kidney function. Slightly bit worse today, he is back on his antirejection drugs still see nephrology still doing well with current management. CODE STATUS: Full code. Prognosis: Fair. Discussion: Is done much better last 24 hours, he is off BiPAP continue higher flow oxygen to keep his pulse ox above 90 percentile, infection is under better control, his heart failure has improved, kidney function is slightly with worsening still seen nephrology with making good urine output at this point. He is seeing cardiology going for transesophageal echocardiogram and hopefully cardioversion today. Patient is more awake alert is interactive he is able to talk full sentences without significant shortness of breath the combination of his failure from A- fib flutter with RVR along with his infiltrate pneumonia and infection with fluid overload slightly better today. Objective - Vital Signs Vital signs: Vital Signs Temp 98.7 F 02/17/24 04:00 Pulse 98 02/17/24 04:00 Resp 15 02/17/24 04:00 BP 104/62 02/17/24 04:00 Pulse Ox 95 02/17/24 04:00 FiO2 60 02/17/24 04:00 Intake & Output 02/16/24 02/16/24 02/17/24 06:59 18:59 06:59 Intake Total 286.433 239.75 Output Total 670 300 Balance 286.433 -430.25 -300 Weight 93.44 kg Intake: Intake, IV Titration 286.433 239.75 Amount Diltiazem 125 mg In 119.25 239.75 Sodium Chloride 0.9% 100 ml @ 5 MG/HR 5 mls/hr IV .Q24H THU Rx#:[id number] Heparin Sod,Pork in 0.45% 167.183 NaCl 25,000 unit In 0.45 % NaCl 1 250ml.bag @ 10.7 UNITS/KG/HR 9.998 mls/hr IV .Q24H THU Rx#: [id number] Output: Urine 670 300 Other: Voiding Method Indwelling Catheter Indwelling Catheter - Labs CBC & Chem 7: 02/17/24 04:39 02/17/24 04:39 Labs: Abnormal Lab Results - Last 24 Hours (Table) 02/16/24 02/16/24 02/16/24 Range/Units 07:20 08:21 09:20 RBC (4.30-5.90) m/uL Hgb (13.0-17.5) gm/dL Hct (39.0-53.0) % MCHC (31.0-37.0) g/dL Neutrophils # (1.3-7.7) k/uL Lymphocytes # (1.0-4.8) k/uL INR (<1.2) APTT (22.0-30.0) sec ABG pH 7.29 L (7.35-7.45) ABG pO2 66 L (83-108) mmHg ABG O2 Saturation 92.0 L (94-97) % Sodium (137-145) mmol/L Potassium (3.5-5.1) mmol/L Chloride (98-107) mmol/L Carbon Dioxide (22-30) mmol/L BUN (9-20) mg/dL Creatinine (0.66-1.25) mg/dL Glucose (74-99) mg/dL POC Glucose (mg/dL) 369 H 340 H (70-110) mg/dL ALT (4-49) U/L Total Protein (6.3-8.2) g/dL Albumin (3.5-5.0) g/dL 02/16/24 02/16/24 02/16/24 Range/Units 09:30 09:30 09:30 RBC (4.30-5.90) m/uL Hgb (13.0-17.5) gm/dL Hct (39.0-53.0) % MCHC (31.0-37.0) g/dL Neutrophils # (1.3-7.7) k/uL Lymphocytes # (1.0-4.8) k/uL INR 1.2 H (<1.2) APTT 46.5 H (22.0-30.0) sec ABG pH (7.35-7.45) ABG pO2 (83-108) mmHg ABG O2 Saturation (94-97) % Sodium 136 L (137-145) mmol/L Potassium 5.4 H (3.5-5.1) mmol/L Chloride (98-107) mmol/L Carbon Dioxide 18 L (22-30) mmol/L BUN 65 H (9-20) mg/dL Creatinine 2.53 H (0.66-1.25) mg/dL Glucose 361 H (74-99) mg/dL POC Glucose (mg/dL) (70-110) mg/dL ALT 70 H (4-49) U/L Total Protein 5.7 L (6.3-8.2) g/dL Albumin 3.1 L (3.5-5.0) g/dL 02/16/24 02/16/24 02/16/24 Range/Units 09:30 09:42 11:46 RBC 3.57 L (4.30-5.90) m/uL Hgb 10.6 L (13.0-17.5) gm/dL Hct 35.0 L (39.0-53.0) % MCHC 30.3 L (31.0-37.0) g/dL Neutrophils # (1.3-7.7) k/uL Lymphocytes # 0.4 L (1.0-4.8) k/uL INR (<1.2) APTT (22.0-30.0) sec ABG pH 7.28 L (7.35-7.45) ABG pO2 (83-108) mmHg ABG O2 Saturation (94-97) % Sodium (137-145) mmol/L Potassium (3.5-5.1) mmol/L Chloride (98-107) mmol/L Carbon Dioxide (22-30) mmol/L BUN (9-20) mg/dL Creatinine (0.66-1.25) mg/dL Glucose (74-99) mg/dL POC Glucose (mg/dL) 389 H (70-110) mg/dL ALT (4-49) U/L Total Protein (6.3-8.2) g/dL Albumin (3.5-5.0) g/dL 02/16/24 02/16/24 02/17/24 Range/Units 15:27 17:54 04:39 RBC 3.22 L (4.30-5.90) m/uL Hgb 9.2 L (13.0-17.5) gm/dL Hct 30.6 L (39.0-53.0) % MCHC 30.2 L (31.0-37.0) g/dL Neutrophils # 7.9 H (1.3-7.7) k/uL Lymphocytes # 0.4 L (1.0-4.8) k/uL INR (<1.2) APTT (22.0-30.0) sec ABG pH 7.34 L (7.35-7.45) ABG pO2 70 L (83-108) mmHg ABG O2 Saturation (94-97) % Sodium (137-145) mmol/L Potassium (3.5-5.1) mmol/L Chloride (98-107) mmol/L Carbon Dioxide (22-30) mmol/L BUN (9-20) mg/dL Creatinine (0.66-1.25) mg/dL Glucose (74-99) mg/dL POC Glucose (mg/dL) 180 H (70-110) mg/dL ALT (4-49) U/L Total Protein (6.3-8.2) g/dL Albumin (3.5-5.0) g/dL 02/17/24 02/17/24 Range/Units 04:39 04:39 RBC (4.30-5.90) m/uL Hgb (13.0-17.5) gm/dL Hct (39.0-53.0) % MCHC (31.0-37.0) g/dL Neutrophils # (1.3-7.7) k/uL Lymphocytes # (1.0-4.8) k/uL INR (<1.2) APTT 51.1 H (22.0-30.0) sec ABG pH (7.35-7.45) ABG pO2 (83-108) mmHg ABG O2 Saturation (94-97) % Sodium 135 L (137-145) mmol/L Potassium (3.5-5.1) mmol/L Chloride 108 H (98-107) mmol/L Carbon Dioxide 20 L (22-30) mmol/L BUN 75 H (9-20) mg/dL Creatinine 2.69 H (0.66-1.25) mg/dL Glucose (74-99) mg/dL POC Glucose (mg/dL) (70-110) mg/dL ALT (4-49) U/L Total Protein (6.3-8.2) g/dL Albumin (3.5-5.0) g/dL Microbiology - Last 24 Hours (Table) 02/15/24 18:20 Gram Stain - Preliminary Sputum
[2024-02-17] MEDS: PANTOPRAZOLE 40 MG/10 ML VIAL IV SCH (08:49)
--- NOTE | 2024-02-17 09:32 | XR ---
EXAMINATION TYPE: XR chest 1V DATE OF EXAM: 02/17/2024 COMPARISON: 02/16/2024 HISTORY: 68-year-old male with pneumonia TECHNIQUE: Single frontal view of the chest is obtained. FINDINGS: Heart mildly enlarged. Median sternotomy wires post-CABG clips and prosthetic aortic valve . Patchy and confluent airspace opacities show slight improvement in the interval. Small effusions pe rsist. IMPRESSION: CHF with partially improving bilateral pulmonary edema. Small effusions.
--- NOTE | 2024-02-17 09:51 | P.PN ---
Subjective Progress Note Date: 02/17/24 Principal diagnosis: Respiratory failure. Pulmonary consult dated February 15, 2024. 68-year-old male who was seen in the emergency department, on February 13. He came into the emergency department, complaining of shortness of breath, and, was told by his family doctor, to be evaluated in the emergency department. The patient was found in Dr. Finley's office to have a heart rate of 140 bpm, and to be very short of breath. The patient's heart rate was irregular, and atrial fibrillat ion was suspected. In addition, the patient was found to likely be in congestive heart failure. The patient was initially reluctant to come to the hospital and be admitted, but he finally did. He has a history of previous bypass grafting in 2018, [facility], and a kidney transplant, at the [facility] in 2012. More recently, the patient's renal function has declined. We will check a procalcitonin level. His N-terminal proBNP was 5620. When we saw him, he was on 2 L of oxygen, and receiving Cardizem drip at 10 mg an hour. He appeared to be in moderate distress. He was coughing frequently, and was clearly short of breath. In addition to bypass grafting, and kidney transplantation, the patient has a history of hyperlipidemia, and hypertension, as well as gout. Also, the patient has a history of diabetes mellitus. He has no known allergies. The patient also apparently had a stroke at the age of 42. Current labs include white count 6.1, hemoglobin 9.7, hemat ocrit 32.6, and a normal platelet count. Coagulation studies were normal. Sodium 135, potassium 4.2, chlorides 106, CO2 20, anion gap 9, BUN 49, and creatinine 1.87. These electrolytes are consistent with a 9 anion gap metabolic acidosis. Glucose was 264. Lactic acid was 1. Troponin was 0.069. N-terminal proBNP was 5620. Procalcitonin level was elevated at 0.40. Chest x-ray showed a pattern consistent with either fluid overload/CHF, or possible pneumonia, left lung. Progress note dated February 16, 2024. 68-year-old male with a history of multiple medical problems, who was seen yesterday in the emergency department. He is seen again today in the emergency department, room 5. Unfortunately, the patient's respiratory status is declining, and, he was on high flow nasal cannula, and had to be converted to BiPAP. His BiPAP settings include 15/5, and 60%. The patient is receiving IV heparin via weight-based protocol, and a Cardizem drip at 15 mg an hour. Blood gases done on 50%, show pO2 of 66, pCO2 44, pH is 7.29. The patient will be given Lasix 60 mg IV push. I decided to transfer him to the intensive care unit, for further monitoring and management. His overall prognosis remains poor, and he may end up on mechanical ventilation. White count 8.8, hemoglobin 10.6, hematocrit 35, and platelet count 205,000. PTT is 46.5. Repeat blood gases show pO2 of 87, pCO2 of 45, pH is 7.28. These blood gases were done on his current BiPAP settings. For some reason, there is not a comprehensive metabolic profile today. Sputum is nondiagnostic at this time. Chest x-ray shows a worsening pattern, with patchy and confluent bilateral airspace disease, which could relate to effusions, fluid, pneumonia, etc. Progress note dated February 17, 2024. 68-year-old male who is seen today in room 253. He was initially seen in the emergency department. He came in with shortness of breath, and was noted to have atrial fibrillation with RVR, congestive heart failure, and possibly pn eumonia. The patient was placed on BiPAP. His BiPAP settings were 15/5, and 50%. He had a blood gas done yesterday showing a pO2 of 70, pCO2 44, and a pH of 7.34. The patient is currently on amiodarone at 0.5 mg/min, Cardizem at 15 mg an hour, and IV heparin via protocol. The patient is also getting saline at 10 cc an hour. Current labs include white count 8.7, hemoglobin 9.2, hematocrit 30.6, and platelet count 169,000. Sodium 135, potassium 4.3, chlorides 108, CO2 20, BUN 75, creatinine 2.69. Calcium is 9.5. Glucose is 90. Chest x-ray shows diffuse bilateral infiltrates, likely related to fluid overload, and/or pneumonia. The patient continues on Rocephin, and doxycycline. Objective - Vital Signs Vital signs: Vital Signs Temp 98.2 F 02/17/24 08:00 Pulse 124 H 02/17/24 09:00 Resp 16 02/17/24 09:00 BP 111/66 02/17/24 09:00 Pulse Ox 95 02/17/24 09:00 FiO2 50 02/17/24 07:42 Intake & Output 02/16/24 02/17/24 02/17/24 18:59 06:59 18:59 Intake Total 239.75 616.672 30 Output Total 670 365 200 Balance -430.25 251.672 -170 Weight 96.9 kg Intake: IV 30 Normal Saline 30 Intake, IV Titration 239.75 616.672 Amount Amiodarone 450 mg In 241.672 Dextrose 5% in Water 250 ml @ 0.5 MG/MIN 16.667 mls/hr IV .Q15H THU Rx#: [id number] Diltiazem 125 mg In 239.75 125 Sodium Chloride 0.9% 100 ml @ 5 MG/HR 5 mls/hr IV .Q24H THU Rx#:[id number] Heparin Sod,Pork in 0.45% 250 NaCl 25,000 unit In 0.45 % NaCl 1 250ml.bag @ 10.7 UNITS/KG/HR 9.998 mls/hr IV .Q24H THU Rx#: [id number] Output: Urine 670 365 200 Other: Voiding Method Indwelling Catheter Indwelling Catheter Indwelling Catheter # Bowel Movements 0 - Exam Minimal respiratory distress, much more awake and alert, on BiPAP, being converted over to nasal cannula. HEENT examination is grossly unremarkable. Mucous membranes are moist. No oral lesions. Neck supple. Full range of motion. No adenopathy thyromegaly or neck vein distention. Cardiovascular examination reveals an irregular rhythm and rate. S1-S2 normal. No S3 or S4. No discernible murmur noted. Heart rate 123 bpm. Lungs reveal bilateral coarse rhonchi. Basilar crackles are noted. No wheezes. Breath sounds are equal bilaterally. Saturations nasal cannula, 5 L, is 95%. Abdomen obese, but without tenderness. Extremities are intact. No signs or clubbing. There is 1+ edema. Skin is without rash or lesion. Neurologic examination is brief but nonfocal. - Labs CBC & Chem 7: 02/17/24 04:39 02/17/24 04:39 Labs: Abnormal Lab Results - Last 24 Hours (Table) 02/16/24 02/16/24 02/16/24 Range/Units 09:30 09:30 09:30 RBC (4.30-5.90) m/uL Hgb (13.0-17.5) gm/dL Hct (39.0-53.0) % MCHC (31.0-37.0) g/dL Neutrophils # (1.3-7.7) k/uL Lymphocytes # (1.0-4.8) k/uL INR 1.2 H (<1.2) APTT 46.5 H (22.0-30.0) sec ABG pH (7.35-7.45) ABG pO2 (83-108) mmHg Sodium 136 L (137-145) mmol/L Potassium 5.4 H (3.5-5.1) mmol/L Chloride (98-107) mmol/L Carbon Dioxide 18 L (22-30) mmol/L BUN 65 H (9-20) mg/dL Creatinine 2.53 H (0.66-1.25) mg/dL Glucose 361 H (74-99) mg/dL POC Glucose (mg/dL) (70-110) mg/dL ALT 70 H (4-49) U/L Total Protein 5.7 L (6.3-8.2) g/dL Albumin 3.1 L (3.5-5.0) g/dL 02/16/24 02/16/24 02/16/24 Range/Units 09:42 11:46 15:27 RBC (4.30-5.90) m/uL Hgb (13.0-17.5) gm/dL Hct (39.0-53.0) % MCHC (31.0-37.0) g/dL Neutrophils # (1.3-7.7) k/uL Lymphocytes # (1.0-4.8) k/uL INR (<1.2) APTT (22.0-30.0) sec ABG pH 7.28 L 7.34 L (7.35-7.45) ABG pO2 70 L (83-108) mmHg Sodium (137-145) mmol/L Potassium (3.5-5.1) mmol/L Chloride (98-107) mmol/L Carbon Dioxide (22-30) mmol/L BUN (9-20) mg/dL Creatinine (0.66-1.25) mg/dL Glucose (74-99) mg/dL POC Glucose (mg/dL) 389 H (70-110) mg/dL ALT (4-49) U/L Total Protein (6.3-8.2) g/dL Albumin (3.5-5.0) g/dL 02/16/24 02/17/24 02/17/24 Range/Units 17:54 04:39 04:39 RBC 3.22 L (4.30-5.90) m/uL Hgb 9.2 L (13.0-17.5) gm/dL Hct 30.6 L (39.0-53.0) % MCHC 30.2 L (31.0-37.0) g/dL Neutrophils # 7.9 H (1.3-7.7) k/uL Lymphocytes # 0.4 L (1.0-4.8) k/uL INR (<1.2) APTT (22.0-30.0) sec ABG pH (7.35-7.45) ABG pO2 (83-108) mmHg Sodium 135 L (137-145) mmol/L Potassium (3.5-5.1) mmol/L Chloride 108 H (98-107) mmol/L Carbon Dioxide 20 L (22-30) mmol/L BUN 75 H (9-20) mg/dL Creatinine 2.69 H (0.66-1.25) mg/dL Glucose (74-99) mg/dL POC Glucose (mg/dL) 180 H (70-110) mg/dL ALT (4-49) U/L Total Protein (6.3-8.2) g/dL Albumin (3.5-5.0) g/dL 02/17/24 Range/Units 04:39 RBC (4.30-5.90) m/uL Hgb (13.0-17.5) gm/dL Hct (39.0-53.0) % MCHC (31.0-37.0) g/dL Neutrophils # (1.3-7.7) k/uL Lymphocytes # (1.0-4.8) k/uL INR (<1.2) APTT 51.1 H (22.0-30.0) sec ABG pH (7.35-7.45) ABG pO2 (83-108) mmHg Sodium (137-145) mmol/L Potassium (3.5-5.1) mmol/L Chloride (98-107) mmol/L Carbon Dioxide (22-30) mmol/L BUN (9-20) mg/dL Creatinine (0.66-1.25) mg/dL Glucose (74-99) mg/dL POC Glucose (mg/dL) (70-110) mg/dL ALT (4-49) U/L Total Protein (6.3-8.2) g/dL Albumin (3.5-5.0) g/dL Microbiology - Last 24 Hours (Table) 02/15/24 18:20 Gram Stain - Preliminary Sputum Assessment and Plan Assessment: Acute hypoxemic respiratory failure, likely multifactorial, in part related to atrial fibrillation/RVR, CHF/fluid overload, and possible pneumonia. History of kidney transplantation, 2013, at [facility]. Previous bypass grafting, 2019, [facility]. History of hypertension. History of hyperlipidemia. History of diabetes mellitus. History of gout. History of CVA, at age 42. Plan: Plan dated February 15, 2024. The patient is seen in the emergency department, room 5. He is currently on a Cardizem drip at 10 mg an hour, and O2 by nasal cannula at 2 L. The patient does look somewhat uncomfortable, and has a frequent cough. Labs, x-rays, and medications are reviewed. The patient is receiving azithromycin, and Rocephin for possible pneumonia. In addition, the patient is on the Cardizem drip at 10 mg an hour. The patient is also receiving IV heparin per protocol, and metoprolol. I will add some breathing treatments to the patient's regimen. Additional recommendations and suggestions are forthcoming. Prognosis is certainly guarded. Plan dated February 16, 2024. I was notified by the nurse in the emergency department, the patient's respiratory status had declined. I recommended BiPAP therapy, with settings of 15/5, and 60%. The patient was seen in the emergency department initially, and, the patient is transferred up to the intensive care unit, for further monitoring and management. The patient had a repeat blood gas, which showed stability, but, the patient's overall condition remains tenuous. He remains on IV heparin, and Cardizem drip at 15 mg an hour. I did speak to his sister, Makenzie Busby, and told her that the patient may end up on mechanical ventilation. Labs, x-rays, and medications are reviewed. Prognosis is very guarded. We will continue to follow make recommendations along the way. I am going to DC the patient's prednisone and start him on hydrocortisone, at stress doses. Plan dated February 17, 2024. Yesterday, the patient was taken off BiPAP, but only lasted a few minutes off of BiPAP, became very short of breath, and had reductions in his saturations. He has been on BiPAP through the night. We will attempt again to put him on nasal cannula, at 5 L/min. Labs, x-rays, and medications are reviewed. Clinically, the patient looks better. He is much more awake and alert. The patient will have a transesophageal echocardiogram, and cardioversion today. Additional recommendations and suggestions are forthcoming. Labs, x-rays, medications are reviewed. I did send a trough tacrolimus level to the lab. We will continue to follow patient, and make recommendations. In addition, I did put the patient on stress doses of corticosteroids, as she is typically on prednisone 5 mg a day, following his kidney transplant. Time with Patient: Greater than 30
[2024-02-17] MEDS ORDERED: PROPOFOL 10 MG/ML 20 ML VIAL IV ONE (10:26)
[2024-02-17] MEDS ORDERED: ATROPINE SULFATE 0.4 MG/ML 1 ML VIAL ONE (10:26)
[2024-02-17] MEDS: ATROPINE SULFATE 0.1 MG/ML 10ML SYRINGE IV STA (10:55)
--- NOTE | 2024-02-17 11:11 | P.TEE ---
Date of Procedure: 02/17/24 Description of Procedure(s): Procedure performed: 1. Transesophageal Echocardiogram. 2. Synchronized Cardioversion. Indications: Persistent atrial flutter Consent: I have discussed the risks, benefits and alternative therapies for the above-mentioned procedure. The patient has indicated understanding and acceptance of the risks of the procedure. Signed consent was obtained and was placed in the paper chart. Moderate conscious sedation: Moderate conscious sedation was administered by anesthesia, see separate report. Procedural Steps: Timeout was performed in usual fashion. Patient's heart rate, blood pressure, oxygen saturation and ECG were monitored. After achieving appropriate moderate conscious sedation, MIHAELA MIHAELA probe was advanced without difficulty and without any immediate complications to the esophagus. MIHAELA study was performed with color flow doppler, pulsed wave doppler and continuous wave doppler. Agitated saline bubbles were injected to assess for any intra-atrial shunt. The probe was then removed. FINDINGS Left Atrium: Moderate left atrial dilatation. No evidence of thrombus or mass. Left Atrial Appendage: Left atrial appendage appears to be ligated by atrial clip. No significant flow in the left atrial appendage noticed. No evidence of thrombus. Inter atrial septum: Intact inter-atrial septum. No evidence of atrial septal defect or patent foramen ovale on color doppler. Left Ventricle: Normal global LV size and systolic function Right Atrium: Normal overall RA size Right Ventricle: Normal global RV size and systolic function Aortic Valve: Stented prosthetic aortic valve, normally functioning. Mild paravalvular leak noticed at 6 o'clock position. No significant stenosis noticed. Mitral Valve: Restricted posterior mitral leaflet. Moderate mitral regurgitation. Pulmonic Valve: Not well visualized. Tricuspid Valve: Structurally normal, moderate tricuspid regurgitation. Ascending aorta, Aortic root and Aortic arch: Mild intimal thickening. No evidence of large atheroma or bulky calcification SYNCHRONIZED CARDIOVERSION After making sure that there is no evidence of intracardiac thrombus, pacer pads were placed and secured on patients chest and back. Synchronized cardioversion was perfromed using [120] J. [1] attempt. Sinus rhythm was confirmed with a 12 lead EKG. Patient tolerated the procedure well. Patient was transferred to the post procedure area in stable and satisfactory condition. Complications: none Blood loss: none CONCLUSION: Successful synchronized cardioversion with achieving normal sinus rhythm. Patient was getting Cardizem just prior to the procedure. Post cardioversion patient's heart rate was in 40s. For this we gave half ampoule of atropine. This brought patient's heart rate to 70s. Patient did not account any complications. Changes to the medications Decreased hydralazine from 50 mg every 6 hours to 25 mg 3 times daily to reduce reflex tachycardia Add amlodipine 5 mg daily Continue metoprolol 50 mg 3 times daily Continue amiodarone drip at 0.5 mg. Consider transitioning to p.o. tomorrow if clinically indicated YOUSIF Blackwell MD, RPVI, FACC Thank you for allowing [facility] to participate in this patient's care. Feel free to reach out in case of any followup questions.
--- NOTE | 2024-02-17 11:42 | P.PN ---
Subjective Patient is seen for follow-up for acute kidney injury and chronic kidney disease. off of BiPAP this morning. Urine output at 40 to 50 cc an hour. Status post cardioversion this morning. Serum creatinine increased to 2.69 mg/dL today. Chest x-ray shows pulmonary vascular congestion. Patient is maintained on Lasix 40 mg IV every 12 hours. Objective - Vital Signs Vital signs: Vital Signs Temp 98.2 F 02/17/24 08:00 Pulse 124 H 02/17/24 09:00 Resp 16 02/17/24 09:00 BP 111/66 02/17/24 09:00 Pulse Ox 95 02/17/24 09:00 FiO2 50 02/17/24 07:42 Intake & Output 02/16/24 02/17/24 02/17/24 18:59 06:59 18:59 Intake Total 239.75 616.672 30 Output Total 670 365 200 Balance -430.25 251.672 -170 Weight 96.9 kg Intake: IV 30 Normal Saline 30 Intake, IV Titration 239.75 616.672 Amount Amiodarone 450 mg In 241.672 Dextrose 5% in Water 250 ml @ 0.5 MG/MIN 16.667 mls/hr IV .Q15H THU Rx#: [id number] Diltiazem 125 mg In 239.75 125 Sodium Chloride 0.9% 100 ml @ 5 MG/HR 5 mls/hr IV .Q24H THU Rx#:[id number] Heparin Sod,Pork in 0.45% 250 NaCl 25,000 unit In 0.45 % NaCl 1 250ml.bag @ 10.7 UNITS/KG/HR 9.998 mls/hr IV .Q24H THU Rx#: [id number] Output: Urine 670 365 200 Other: Voiding Method Indwelling Catheter Indwelling Catheter Indwelling Catheter # Bowel Movements 0 - Exam patient is awake, comfortable. No acute distress Examination of the heart S1 and S2 Examination of the lungs bilateral breath sounds are heard with decreased breath sounds at the bases Abdomen is soft obese nontender Examination of lower extremities shows 1+ edema [employer] exam grossly intact - Labs CBC & Chem 7: 02/17/24 04:39 02/17/24 04:39 Labs: Abnormal Lab Results - Last 24 Hours (Table) 02/16/24 02/16/24 02/16/24 Range/Units 11:46 15:27 17:54 RBC (4.30-5.90) m/uL Hgb (13.0-17.5) gm/dL Hct (39.0-53.0) % MCHC (31.0-37.0) g/dL Neutrophils # (1.3-7.7) k/uL Lymphocytes # (1.0-4.8) k/uL APTT (22.0-30.0) sec ABG pH 7.34 L (7.35-7.45) ABG pO2 70 L (83-108) mmHg Sodium (137-145) mmol/L Chloride (98-107) mmol/L Carbon Dioxide (22-30) mmol/L BUN (9-20) mg/dL Creatinine (0.66-1.25) mg/dL POC Glucose (mg/dL) 389 H 180 H (70-110) mg/dL 02/17/24 02/17/24 02/17/24 Range/Units 04:39 04:39 04:39 RBC 3.22 L (4.30-5.90) m/uL Hgb 9.2 L (13.0-17.5) gm/dL Hct 30.6 L (39.0-53.0) % MCHC 30.2 L (31.0-37.0) g/dL Neutrophils # 7.9 H (1.3-7.7) k/uL Lymphocytes # 0.4 L (1.0-4.8) k/uL APTT 51.1 H (22.0-30.0) sec ABG pH (7.35-7.45) ABG pO2 (83-108) mmHg Sodium 135 L (137-145) mmol/L Chloride 108 H (98-107) mmol/L Carbon Dioxide 20 L (22-30) mmol/L BUN 75 H (9-20) mg/dL Creatinine 2.69 H (0.66-1.25) mg/dL POC Glucose (mg/dL) (70-110) mg/dL Microbiology - Last 24 Hours (Table) 02/15/24 18:20 Gram Stain - Preliminary Sputum Assessment and Plan Assessment: 1. 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 2. Recent episode of acute kidney injury on 12/02/2023 with serum creatinine at 3.47, now resolved with creatinine back to 1.8 mg/dL. 3. A. fib with RVR, status post cardioversion 4. Acute hypoxic respiratory failure secondary to pneumonia 5. Status post donor renal transplant in 2012 at [facility] maintained on tacrolimus prednisone and Myfortic 6. Anemia of chronic disease rule out iron deficiency 7. Acute kidney injury, cardiorenal and associated with hemodynamic instability from A-fib/RVR. Nonoliguric ATN 8. Metabolic acidosis associated with acute kidney injury and calcineurin inhibitors 9. Mild hyperkalemia associated with metabolic acidosis and calcineurin inh ibitor use 10. Volume overload Plan: continue with empiric antibiotics. Continue current dose of IV Lasix Follow-up on tacrolimus level continue oral sodium bicarb Repeat labs in a.m.
[2024-02-17 12:08] LABS: Glucose,Whole Blood 117 mg/dL (70-110)
[2024-02-17] MEDS: AMIODARONE 450 MG in DEXTROSE 5% IN WATER 250 ML IV SCH (12:18)
--- NOTE | 2024-02-17 13:14 | CDI ---
Documentation Clarification Form Date: 02/17/2024 12:44:29 PM From: Evelyn Hernandez RN, CCDS Phone: [phone] Admit Date: 02/15/2024 01:08:00 AM Patient Name: Graham Zepeda Visit Number: [id number] Discharge Date: ATTENTION: The Clinical Documentation Specialists (CDI) and [facility] Coding Staff appreciate your assistance in clarifying documentation. Please respond to the clarification below the line at the bottom and electronically sign. The CDI & [facility] Coding staff will review the response and follow-up if needed. Please note: Queries are made part of the Legal Health Record. If you have any questions, please contact the author of this message via ITS. Dr. Mario Finley Conflicting documentation has been found in the medical record. As attending physician, please provide clarification. H/P and subsequent progress notes: Congestive heart failure acute with mild exacerbation mostly systolic dysfunction. 02/15 Cardiology progress note: Acute on chronic heart failure with preserved EF 02/15 Echocardiogram: severely increased left ventricular wall thickening with left ventricular ejection fraction of 50-55 percentile with moderate mitral regurgitation who has bioprosthetic aortic valve not well-visualized with his valve area is only 1 cm. History/Risk Factors: CVA/TIA, Diabetes Mellitus, Hyperlipidemia, Hypertension, kidney transplant Clinical Indicators: 68-year-old male presenting to the ER with a chief complaint of shortness of breath. 02/13 CXR: Left lower lung airspace opacites correlate for pneumonia. Correlate with serum PNP to exclude a component of congestive heart failure. 02/13 BNP 5620 Treatment: ICU/Telemetry monitoring Monitor O2 Sat Titrate) Lasix 40MG IV Q 12 HR 02/15-02/16 Lopressor 50 MG PO TID 02/14-02/16 Daily weights, accurate intake and output, and monitoring of kidney function Please clarify which diagnosis is most appropriate: [XX ] Acute on chronic heart failure with preserved EF [ ] Other (please specify) [ ] Unable to determine (Template Last Revised: December 2020) MTDD
[2024-02-17 17:15] LABS: Glucose,Whole Blood 256 mg/dL (70-110)
[2024-02-17 19:56] LABS: Glucose,Whole Blood 213 mg/dL (70-110)
[2024-02-17] MEDS: hydrALAZINE HCL 25 MG TAB PO SCH (21:10)
[2024-02-17] MEDS: MYCOPHENOLATE SODIUM DR 180 MG TABLET.DR PO SCH (21:11)
[2024-02-18 06:17] LABS: Basophils % (A) 0 %; Eosinophils % (A) 0 %; HGB 8.9 gm/dL (13.0-17.5); Hypochromasia Moderate; Lymphocytes # (A) 0.6 k/uL (1.0-4.8); Lymphocytes % (A) 7 %; MCHC 29.6 g/dL (31.0-37.0); MCV 94.5 fL (80.0-100.0); Mean Platelet Volume 8.7; Monocytes # (A) 0.4 k/uL (0-1.0); Monocytes % (A) 5 %; Neutrophils # (A) 7.5 k/uL (1.3-7.7); Neutrophils % (A) 87 %; Platelet Count 197 k/uL (150-450); RBC 3.17 m/uL (4.30-5.90); RDW 13.9 % (11.5-15.5); WBC 8.6 k/uL (3.8-10.6)
[2024-02-18 06:45] LABS: Glucose,Whole Blood 110 mg/dL (70-110)
[2024-02-18 06:51] LABS: African American GFR (CKD) 20 (>60 ml/min/1.73 sqM); Anion Gap 7 mmol/L; Blood Urea Nitrogen 90 mg/dL (9-20); Calcium 9.5 mg/dL (8.4-10.2); Carbon Dioxide 23 mmol/L (22-30); Chloride 105 mmol/L (98-107); Glucose 112 mg/dL (74-99); Non-African American GFR(CKD) 17 (>60 ml/min/1.73 sqM); Potassium 4.6 mmol/L (3.5-5.1); Sodium 135 mmol/L (137-145)
[2024-02-18] MEDS: AMIODARONE 200 MG TAB PO SCH (08:47)
[2024-02-18] MEDS: METOPROLOL TARTRATE 50 MG TAB PO SCH (08:47)
[2024-02-18] MEDS: amLODIPine 5 MG TAB PO SCH (08:47)
[2024-02-18] MEDS: APIXABAN 2.5 MG TABLET PO SCH (08:51)
--- NOTE | 2024-02-18 08:53 | XR ---
EXAMINATION TYPE: XR chest 1V DATE OF EXAM: 02/18/2024 COMPARISON: 02/17/2024 HISTORY: 68-year-old male follow-up pneumonia TECHNIQUE: Single frontal view of the chest is obtained. FINDINGS: Median sternotomy wires and post-CABG clips and prosthetic aortic valve. Patient rotated t oward the right. Heart is mildly enlarged. Uncoiling perihilar and diffuse interstitial and patchy bi lateral opacities. Possible trace effusions. IMPRESSION: Overall similar diffuse interstitial and patchy bilateral opacities with mild cardiomega ly. Suspect trace effusions. Both CHF with pulmonary edema and diffuse pneumonitis are in the differe ntial.
--- NOTE | 2024-02-18 09:03 | P.PN ---
Subjective Progress Note Date: 02/18/24 HPI: [This gentleman has bilateral pneumonia and atrial flutter. He underwent electrical cardioversion after transesophageal echo and has remained in sinus rhythm hemodynamically stable. He feels a lot better. Chest x-ray shows significant improvement today. He remains in sinus rhythm. He is currently on amiodarone drip. I am recommending that we discontinue amiodarone drip and start him on 200 mg daily amiodarone and decrease the metoprolol to tartrate from 50 mg 3 times daily to twice daily. I will also discontinue the Lasix and discontinue Cintron catheter and increase activity. Cardiac brown he is stable I will place him on Eliquis 2.5 mg twice daily along with aspirin 81 mg daily. Overall he is showing significant improvement]. PHYSICIAL EXAM: [Vital signs are stable no JVD S1-S2 heard normally ejection systolic murmur is audible at the base of the heart second heart sound is prese rved lungs reveal improved air entry abdomen is soft the lower extremities reveal diminished pulses Central nervous system is normal]. IMPRESSION: 1. [Bilateral pneumonia with hypoxia improving]. 2. [Atrial flutter s/p a transesophageal echo and electrical cardioversion maintaining sinus rhythm]. 3. [History of CAD with prior bypass surgery and aortic valve replacement stable in this regard]. 4. [History of renal transplantation creatinine in the range of 2.5-3.5.]. 5. []. RECOMMENDATIONS: [I am recommending that we discontinue amiodarone drip and start him on 200 mg daily amiodarone and decrease the metoprolol to tartrate from 50 mg 3 times daily to twice daily. I will also discontinue the Lasix and discontinue Cintron catheter and increase activity. Cardiac brown he is stable I will place him on Eliquis 2.5 mg twice daily along with aspirin 81 mg daily. Overall he is showing significant improvement].]. Objective - Vital Signs Vital signs: Vital Signs Temp 97.8 F 02/18/24 04:00 Pulse 84 02/18/24 07:42 Resp 23 02/18/24 07:00 BP 124/62 02/18/24 07:00 Pulse Ox 93 L 02/18/24 07:00 FiO2 60 02/18/24 04:00 Intake & Output 02/17/24 02/18/2424 18:59 06:59 18:59 Intake Total 120 368.06 10 Output Total 485 355 30 Balance -365 13.06 -20 Weight 96 kg Intake: IV 120 160 10 Normal Saline 120 110 10 cefTRIAXone 2 gm In 50 Sodium Chloride 0.9% 50 ml @ 100 mls/hr IVPB DAILY@2100 [facility] Rx#: [id number] Intake, IV Titration 208.06 Amount Amiodarone 450 mg In 208.06 Dextrose 5% in Water 250 ml @ 0.5 MG/MIN 16.667 mls/hr IV .Q15H [facility] Rx#: [id number] Output: Urine 485 355 30 Other: Voiding Method Indwelling Catheter Indwelling Catheter - Labs CBC & Chem 7: 02/18/24 05:47 02/18/24 05:47 Labs: Abnormal Lab Results - Last 24 Hours (Table) 02/16/24 02/17/24 02/17/24 Range/Units 09:30 12:07 17:11 RBC (4.30-5.90) m/uL Hgb (13.0-17.5) gm/dL Hct (39.0-53.0) % MCHC (31.0-37.0) g/dL Lymphocytes # (1.0-4.8) k/uL APTT (22.0-30.0) sec Sodium (137-145) mmol/L BUN (9-20) mg/dL Creatinine (0.66-1.25) mg/dL Glucose (74-99) mg/dL POC Glucose (mg/dL) 117 H 256 H (70-110) mg/dL Tacrolimus 3.7 L (5.0-20.0) ng/mL 02/17/24 02/18/24 02/18/24 Range/Units 19:54 05:47 05:47 RBC 3.17 L (4.30-5.90) m/uL Hgb 8.9 L (13.0-17.5) gm/dL Hct 30.0 L (39.0-53.0) % MCHC 29.6 L (31.0-37.0) g/dL Lymphocytes # 0.6 L (1.0-4.8) k/uL APTT (22.0-30.0) sec Sodium 135 L (137-145) mmol/L BUN 90 H (9-20) mg/dL Creatinine 3.50 H (0.66-1.25) mg/dL Glucose 112 H (74-99) mg/dL POC Glucose (mg/dL) 213 H (70-110) mg/dL Tacrolimus (5.0-20.0) ng/mL 02/18/24 Range/Units 05:47 RBC (4.30-5.90) m/uL Hgb (13.0-17.5) gm/dL Hct (39.0-53.0) % MCHC (31.0-37.0) g/dL Lymphocytes # (1.0-4.8) k/uL APTT 73.6 H (22.0-30.0) sec Sodium (137-145) mmol/L BUN (9-20) mg/dL Creatinine (0.66-1.25) mg/dL Glucose (74-99) mg/dL POC Glucose (mg/dL) (70-110) mg/dL Tacrolimus (5.0-20.0) ng/mL Microbiology - Last 24 Hours (Table) 02/15/24 18:20 Gram Stain - Final Sputum Sputum Culture - Final 02/15/24 22:57 Blood Culture - Preliminary Blood 02/16/24 00:10 Blood Culture - Preliminary Blood
--- NOTE | 2024-02-18 10:28 | P.PN ---
Subjective Progress Note Date: 02/18/24 Principal diagnosis: Respiratory failure. Pulmonary consult dated February 15, 2024. 68-year-old male who was seen in the emergency department, on February 13. He came into the emergency department, complaining of shortness of breath, and, was told by his family doctor, to be evaluated in the emergency department. The patient was found in Dr. Finley's office to have a heart rate of 140 bpm, and to be very short of breath. The patient's heart rate was irregular, and atrial fibrillat ion was suspected. In addition, the patient was found to likely be in congestive heart failure. The patient was initially reluctant to come to the hospital and be admitted, but he finally did. He has a history of previous bypass grafting in 2018, [facility], and a kidney transplant, at the [facility] in 2012. More recently, the patient's renal function has declined. We will check a procalcitonin level. His N-terminal proBNP was 5620. When we saw him, he was on 2 L of oxygen, and receiving Cardizem drip at 10 mg an hour. He appeared to be in moderate distress. He was coughing frequently, and was clearly short of breath. In addition to bypass grafting, and kidney transplantation, the patient has a history of hyperlipidemia, and hypertension, as well as gout. Also, the patient has a history of diabetes mellitus. He has no known allergies. The patient also apparently had a stroke at the age of 42. Current labs include white count 6.1, hemoglobin 9.7, hemat ocrit 32.6, and a normal platelet count. Coagulation studies were normal. Sodium 135, potassium 4.2, chlorides 106, CO2 20, anion gap 9, BUN 49, and creatinine 1.87. These electrolytes are consistent with a 9 anion gap metabolic acidosis. Glucose was 264. Lactic acid was 1. Troponin was 0.069. N-terminal proBNP was 5620. Procalcitonin level was elevated at 0.40. Chest x-ray showed a pattern consistent with either fluid overload/CHF, or possible pneumonia, left lung. Progress note dated February 16, 2024. 68-year-old male with a history of multiple medical problems, who was seen yesterday in the emergency department. He is seen again today in the emergency department, room 5. Unfortunately, the patient's respiratory status is declining, and, he was on high flow nasal cannula, and had to be converted to BiPAP. His BiPAP settings include 15/5, and 60%. The patient is receiving IV heparin via weight-based protocol, and a Cardizem drip at 15 mg an hour. Blood gases done on 50%, show pO2 of 66, pCO2 44, pH is 7.29. The patient will be given Lasix 60 mg IV push. I decided to transfer him to the intensive care unit, for further monitoring and management. His overall prognosis remains poor, and he may end up on mechanical ventilation. White count 8.8, hemoglobin 10.6, hematocrit 35, and platelet count 205,000. PTT is 46.5. Repeat blood gases show pO2 of 87, pCO2 of 45, pH is 7.28. These blood gases were done on his current BiPAP settings. For some reason, there is not a comprehensive metabolic profile today. Sputum is nondiagnostic at this time. Chest x-ray shows a worsening pattern, with patchy and confluent bilateral airspace disease, which could relate to effusions, fluid, pneumonia, etc. Progress note dated February 17, 2024. 68-year-old male who is seen today in room 253. He was initially seen in the emergency department. He came in with shortness of breath, and was noted to have atrial fibrillation with RVR, congestive heart failure, and possibly pn eumonia. The patient was placed on BiPAP. His BiPAP settings were 15/5, and 50%. He had a blood gas done yesterday showing a pO2 of 70, pCO2 44, and a pH of 7.34. The patient is currently on amiodarone at 0.5 mg/min, Cardizem at 15 mg an hour, and IV heparin via protocol. The patient is also getting saline at 10 cc an hour. Current labs include white count 8.7, hemoglobin 9.2, hematocrit 30.6, and platelet count 169,000. Sodium 135, potassium 4.3, chlorides 108, CO2 20, BUN 75, creatinine 2.69. Calcium is 9.5. Glucose is 90. Chest x-ray shows diffuse bilateral infiltrates, likely related to fluid overload, and/or pneumonia. The patient continues on Rocephin, and doxycycline. Progress note dated February 18, 2024. 68-year-old male seen in room 253. Yesterday, the patient had a transesophageal echocardiogram, followed by cardioversion. After the cardioversion, the patient was bradycardic, and received some atropine. Currently, he is on 3 L of oxygen, and getting saline at 10 cc an hour. He continues on IV heparin, and amiodarone at 0.5 mg/min. Both heparin and amiodarone will be turned off shortly. The patient did use BiPAP last night, with settings of 12/5, and 50%. Clinically, he looks much more comfortable. He is sitting up in bed. White count 8.6, hemoglobin 8.9, hematocrit 30, platelet count 197,000. PTT is 73.6. Sodium 135, potassium 4.6, chlorides 105, CO2 23, BUN 90, creatinine 3.5. Glucose is 110. Calcium is 9.5. Blood and sputum sampling is thus far negative. Chest x- ray shows a pattern of fluid overload, and is essentially unchanged from the prior x-ray. Objective - Vital Signs Vital signs: Vital Signs Temp 97.4 F L 02/18/24 08:00 Pulse 60 02/18/24 10:00 Resp 20 02/18/24 10:00 BP 131/64 02/18/24 10:00 Pulse Ox 91 L 02/18/24 09:00 FiO2 60 02/18/24 04:00 Intake & Output 02/17/24 02/18/24 02/18/24 18:59 06:59 18:59 Intake Total 120 368.06 30 Output Total 485 355 90 Balance -365 13.06 -60 Weight 96 kg Intake: IV 120 160 30 Normal Saline 120 110 30 cefTRIAXone 2 gm In 50 Sodium Chloride 0.9% 50 ml @ 100 mls/hr IVPB DAILY@2100 [facility] Rx#: [id number] Intake, IV Titration 208.06 Amount Amiodarone 450 mg In 208.06 Dextrose 5% in Water 250 ml @ 0.5 MG/MIN 16.667 mls/hr IV .Q15H [facility] Rx#: [id number] Output: Urine 485 355 90 Other: Voiding Method Indwelling Catheter Indwelling Catheter - Exam No acute distress, much improved, currently on nasal O2, at 3 L. HEENT examination is grossly unremarkable. Mucous membranes are moist. No oral lesions. Neck supple. Full range of motion. No adenopathy thyromegaly or neck vein distention. Cardiovascular examination reveals an regular rhythm and rate. S1-S2 normal. No S3 or S4. No discernible murmur noted. Heart rate 60 bpm. Lungs reveal bilateral coarse rhonchi. Basilar crackles are noted. No wheezes. Breath sounds are equal bilaterally. Saturation is 91% on 3 L. Abdomen obese, but without tenderness. Extremities are intact. No signs or clubbing. There is 1+ edema. Skin is without rash or lesion. Neurologic examination is brief but nonfocal. - Labs CBC & Chem 7: 02/18/24 05:47 02/18/24 05:47 Labs: Abnormal Lab Results - Last 24 Hours (Table) 02/16/24 02/17/24 02/17/24 Range/Units 09:30 12:07 17:11 RBC (4.30-5.90) m/uL Hgb (13.0-17.5) gm/dL Hct (39.0-53.0) % MCHC (31.0-37.0) g/dL Lymphocytes # (1.0-4.8) k/uL APTT (22.0-30.0) sec Sodium (137-145) mmol/L BUN (9-20) mg/dL Creatinine (0.66-1.25) mg/dL Glucose (74-99) mg/dL POC Glucose (mg/dL) 117 H 256 H (70-110) mg/dL Tacrolimus 3.7 L (5.0-20.0) ng/mL 02/17/24 02/18/24 02/18/24 Range/Units 19:54 05:47 05:47 RBC 3.17 L (4.30-5.90) m/uL Hgb 8.9 L (13.0-17.5) gm/dL Hct 30.0 L (39.0-53.0) % MCHC 29.6 L (31.0-37.0) g/dL Lymphocytes # 0.6 L (1.0-4.8) k/uL APTT (22.0-30.0) sec Sodium 135 L (137-145) mmol/L BUN 90 H (9-20) mg/dL Creatinine 3.50 H (0.66-1.25) mg/dL Glucose 112 H (74-99) mg/dL POC Glucose (mg/dL) 213 H (70-110) mg/dL Tacrolimus (5.0-20.0) ng/mL 02/18/24 Range/Units 05:47 RBC (4.30-5.90) m/uL Hgb (13.0-17.5) gm/dL Hct (39.0-53.0) % MCHC (31.0-37.0) g/dL Lymphocytes # (1.0-4.8) k/uL APTT 73.6 H (22.0-30.0) sec Sodium (137-145) mmol/L BUN (9-20) mg/dL Creatinine (0.66-1.25) mg/dL Glucose (74-99) mg/dL POC Glucose (mg/dL) (70-110) mg/dL Tacrolimus (5.0-20.0) ng/mL Microbiology - Last 24 Hours (Table) 02/15/24 18:20 Gram Stain - Final Sputum Sputum Culture - Final 02/15/24 22:57 Blood Culture - Preliminary Blood 02/16/24 00:10 Blood Culture - Preliminary Blood Assessment and Plan Assessment: Acute hypoxemic respiratory failure, likely multifactorial, in part related to atrial fibrillation/RVR, CHF/fluid overload, and possible pneumonia. S/P transesophageal echocardiogram, and cardioversion, February 17, 2024. History of kidney transplantation, 2013, at [facility]. Previous bypass grafting, 2019, [facility]. History of hypertension. History of hyperlipidemia. History of diabetes mellitus. History of gout. History of CVA, at age 42. Plan: Plan dated February 15, 2024. The patient is seen in the emergency department, room 5. He is currently on a Cardizem drip at 10 mg an hour, and O2 by nasal cannula at 2 L. The patient does look somewhat uncomfortable, and has a frequent cough. Labs, x-rays, and medications are reviewed. The patient is receiving azithromycin, and Rocephin for possible pneumonia. In addition, the patient is on the Cardizem drip at 10 mg an hour. The patient is also receiving IV heparin per protocol, and metoprolol. I will add some breathing treatments to the patient's regimen. Additional recommendations and suggestions are forthcoming. Prognosis is certainly guarded. Plan dated February 16, 2024. I was notified by the nurse in the emergency department, the patient's respiratory status had declined. I recommended BiPAP therapy, with settings of 15/5, and 60%. The patient was seen in the emergency department initially, and, the patient is transferred up to the intensive care unit, for further monitoring and management. The patient had a repeat blood gas, which showed stability, but, the patient's overall condition remains tenuous. He remains on IV heparin, and Cardizem drip at 15 mg an hour. I did speak to his sister, Makenzie Busby, and told her that the patient may end up on mechanical ventilation. Labs, x-rays, and medications are reviewed. Prognosis is very guarded. We will continue to follow make recommendations along the way. I am going to DC the patient's prednisone and start him on hydrocortisone, at stress doses. Plan dated February 17, 2024. Yesterday, the patient was taken off BiPAP, but only lasted a few minutes off of BiPAP, became very short of breath, and had reductions in his saturations. He has been on BiPAP through the night. We will attempt again to put him on nasal cannula, at 5 L/min. Labs, x-rays, and medications are reviewed. Clinically, the patient looks better. He is much more awake and alert. The patient will have a transesophageal echocardiogram, and cardioversion today. Additional recommendations and suggestions are forthcoming. Labs, x-rays, medications are reviewed. I did send a trough tacrolimus level to the lab. We will continue to follow patient, and make recommendations. In addition, I did put the patient on stress doses of corticosteroids, as she is typically on prednisone 5 mg a day, following his kidney transplant. Plan dated February 18, 2024. The patient had a transesophageal echocardiogram, and cardioversion yesterday. The patient is currently in sinus rhythm. The patient's IV heparin will be turned down. Amiodarone will be discontinued. Labs, x-rays, and medications are reviewed. The patient is still a little short of breath, and his chest x- ray is basically unchanged. We will continue to follow the patient in the intensive care unit. His renal function is a bit worse. His trough tacrolimus level is 3.7. Labs, x-rays, and medications are reviewed. We will continue to follow the patient, make recommendations along the way. Prognosis is guarded. Time with Patient: Greater than 30
[2024-02-18 11:42] LABS: Glucose,Whole Blood 111 mg/dL (70-110)
--- NOTE | 2024-02-18 12:13 | P.PN ---
Subjective Patient is seen for follow-up for acute kidney injury and chronic kidney disease. off of BiPAP this morning. Urine output at 40 to 30 cc an hour. Status post cardioversion yesterday. Serum creatinine increased to 3.5 mg/dL today. Chest x-ray shows pulmonary vascular congestion. Patient was maintained on Lasix 40 mg IV every 12 hours. Currently held. No complaints of shortness of breath today. Objective - Vital Signs Vital signs: Vital Signs Temp 97.4 F L 02/18/24 08:00 Pulse 60 02/18/24 10:00 Resp 20 02/18/24 10:00 BP 131/64 02/18/24 10:00 Pulse Ox 91 L 02/18/24 09:00 FiO2 60 02/18/24 04:00 Intake & Output 02/17/24 02/18/24 02/18/24 18:59 06:59 18:59 Intake Total 120 368.06 30 Output Total 485 355 90 Balance -365 13.06 -60 Weight 96 kg Intake: IV 120 160 30 Normal Saline 120 110 30 cefTRIAXone 2 gm In 50 Sodium Chloride 0.9% 50 ml @ 100 mls/hr IVPB DAILY@2100 [facility] Rx#: [id number] Intake, IV Titration 208.06 Amount Amiodarone 450 mg In 208.06 Dextrose 5% in Water 250 ml @ 0.5 MG/MIN 16.667 mls/hr IV .Q15H [facility] Rx#: [id number] Output: Urine 485 355 90 Other: Voiding Method Indwelling Catheter Indwelling Catheter Indwelling Catheter - Exam patient is awake, comfortable. No acute distress Examination of the heart S1 and S2 Examination of the lungs bilateral breath sounds are heard with decreased breath sounds at the bases Abdomen is soft obese nontender Examination of lower extremities shows 1+ edema [employer] exam grossly intact - Labs CBC & Chem 7: 02/18/24 05:47 02/18/24 05:47 Labs: Abnormal Lab Results - Last 24 Hours (Table) 02/16/24 02/17/24 02/17/24 Range/Units 09:30 12:07 17:11 RBC (4.30-5.90) m/uL Hgb (13.0-17.5) gm/dL Hct (39.0-53.0) % MCHC (31.0-37.0) g/dL Lymphocytes # (1.0-4.8) k/uL APTT (22.0-30.0) sec Sodium (137-145) mmol/L BUN (9-20) mg/dL Creatinine (0.66-1.25) mg/dL Glucose (74-99) mg/dL POC Glucose (mg/dL) 117 H 256 H (70-110) mg/dL Tacrolimus 3.7 L (5.0-20.0) ng/mL 02/17/24 02/18/24 02/18/24 Range/Units 19:54 05:47 05:47 RBC 3.17 L (4.30-5.90) m/uL Hgb 8.9 L (13.0-17.5) gm/dL Hct 30.0 L (39.0-53.0) % MCHC 29.6 L (31.0-37.0) g/dL Lymphocytes # 0.6 L (1.0-4.8) k/uL APTT (22.0-30.0) sec Sodium 135 L (137-145) mmol/L BUN 90 H (9-20) mg/dL Creatinine 3.50 H (0.66-1.25) mg/dL Glucose 112 H (74-99) mg/dL POC Glucose (mg/dL) 213 H (70-110) mg/dL Tacrolimus (5.0-20.0) ng/mL 02/18/24 02/18/24 Range/Units 05:47 11:41 RBC (4.30-5.90) m/uL Hgb (13.0-17.5) gm/dL Hct (39.0-53.0) % MCHC (31.0-37.0) g/dL Lymphocytes # (1.0-4.8) k/uL APTT 73.6 H (22.0-30.0) sec Sodium (137-145) mmol/L BUN (9-20) mg/dL Creatinine (0.66-1.25) mg/dL Glucose (74-99) mg/dL POC Glucose (mg/dL) 111 H (70-110) mg/dL Tacrolimus (5.0-20.0) ng/mL Microbiology - Last 24 Hours (Table) 02/15/24 18:20 Gram Stain - Final Sputum Sputum Culture - Final 02/15/24 22:57 Blood Culture - Preliminary Blood 02/16/24 00:10 Blood Culture - Preliminary Blood Assessment and Plan Assessment: 1. 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 2. Recent episode of acute kidney injury on 12/02/2023 with serum creatinine at 3.47, now resolved with creatinine back to 1.8 mg/dL. 3. A. fib with RVR, status post cardioversion 4. Acute hypoxic respiratory failure secondary to pneumonia 5. Status post donor renal transplant in [address] [facility] sin maintained on tacrolimus prednisone and Myfortic. Tacrolimus level 3.7 on 02/16/2024. This will be repeated. 6. Anemia of chronic disease rule out iron deficiency 7. Acute kidney injury, cardiorenal and associated with hemodynamic instability from A-fib/RVR. Nonoliguric ATN 8. Metabolic acidosis associated with acute kidney injury and calcineurin inhibitors 9. Mild hyperkalemia associated with metabolic acidosis and calcineurin inhibitor use 10. Volume overload Plan: continue with empiric antibiotics. monitor volume status closely as Lasix is currently on hold. repeat tacrolimus level continue oral sodium bicarb Repeat labs in a.m.
[2024-02-18 16:55] LABS: Glucose,Whole Blood 72 mg/dL (70-110)
[2024-02-18 20:47] LABS: Glucose,Whole Blood 107 mg/dL (70-110)
[2024-02-19 04:55] LABS: HCT 30.4 % (39.0-53.0); Hypochromasia Moderate; MCH 27.9 pg (25.0-35.0); MCHC 29.5 g/dL (31.0-37.0); MCV 94.6 fL (80.0-100.0); Mean Platelet Volume 9.1; Platelet Count 200 k/uL (150-450); RBC 3.21 m/uL (4.30-5.90); RDW 14.1 % (11.5-15.5); WBC 7.9 k/uL (3.8-10.6)
[2024-02-19 05:14] LABS: African American GFR (CKD) 20 (>60 ml/min/1.73 sqM); Anion Gap 8 mmol/L; Calcium 9.4 mg/dL (8.4-10.2); Carbon Dioxide 22 mmol/L (22-30); Chloride 106 mmol/L (98-107); Glucose 116 mg/dL (74-99); Non-African American GFR(CKD) 17 (>60 ml/min/1.73 sqM); Potassium 4.5 mmol/L (3.5-5.1); Sodium 136 mmol/L (137-145)
[2024-02-19 05:17] LABS: Blood Urea Nitrogen 102 mg/dL (9-20)
[2024-02-19 06:25] LABS: Glucose,Whole Blood 147 mg/dL (70-110)
[2024-02-19 07:16] LABS: Appearance,Urine Clear (Clear); Bacteria,Urine Rare /hpf; Bilirubin,Urine Negative (Negative); Blood,Urine Negative (Negative); Color,Urine Light Yellow; Glucose,Urine (UA) Negative (Negative); Hyaline Casts,Urine 4 /lpf (0-2); Ketones,Urine Negative (Negative); Leukocyte Esterase,Urine Negative (Negative); Mucus,Urine Rare /hpf; Nitrite,Urine Negative (Negative); Protein,Urine 1+ (Negative); RBC,Urine 9 /hpf (0-5); Specific Gravity,Urine 1.014 (1.001-1.035); Squamous Epithelial Cell,Urine <1 /hpf (0-4); Urobilinogen,Urine <2.0 mg/dL (<2.0); WBC,Urine 6 /hpf (0-5)
--- NOTE | 2024-02-19 07:21 | P.PN ---
Subjective Progress Note Date: 02/18/24 HISTORY OF PRESENT ILLNESS: 68-year-old office patient with active medical history of atherosclerotic heart disease post CABG, end-stage renal disease post renal transplant at [facility] over 10 years ago, chronic stage IIIb kidney disease, hypertension, hyperlipidemia, chronic neuropathy, obesity, obstructive sleep apnea, mild peripheral arterial disease, who was back at [facility] few months ago for worsening kidney function was hospitalized for few days. He was not in the office on 02/14/2024 with complaining of severe dyspnea and shortness of b reath with cough productive phlegm not been able to lay down flat mild fluid overload with worsening PND and orthopnea was having significant tachypnea and tachycardia with hypoxia. Pulse ox was less than 90 percentile looks the same time and failure but might have double pneumonia. Patient was sent to the emergency room at [facility] where was seen and evaluated Surprisingly h is hemoglobin came back at 10.1 with white blood cell 6.0 creatinine 1.87 close to the last creatinine he has before leaving [facility] a few months ago his blood sugar was elevated at 264 with mildly elevated troponin 0.069 BNP 8 6620. His EKG from the office and from the emergency department showed atrial flutter with pulse rate running at 142 bpm quite irregular. Chest x-ray shows l eft lower lung airspace opacification correlate with pneumonia and mild congestive heart failure as well. Patient was started on IV antibiotics with ceftriaxone 2 g Cardizem drip was started to bring his pulse rate down not helpful or successful at the time. Consult cardiology and pulmonary patient admitted to the hospital. 02/16/2024: The patient remained extremely sick require to be move on to BiPAP, was transferred to the intensive care unit still tachycardic with pulse rate around 140 bpm close schedule initially to go for cardioversion after transesophageal echocardiogram but with his respiratory failure on BiPAP not able to do this today patient is not stable continue current management for now patient manage higher dose of Cardizem was not started on amiodarone yet. Still have significant pulmonary edema being on diuretics 4. Much worsening kidney function compared to before and BNP still elevated. Continue to be treated for left lower lobe pneumonia there is transthoracic echocardiogram showed severely increased left ventricular wall thickening with left ventricular ejection fraction of 50-55 percentile with moderate mitral regurgitation who has b ioprosthetic aortic valve not well-visualized with his valve area is only 1 cm.. Please continue on azithromycin and Rocephin for possible pneumonia left-sided: Heparin drip and Cardizem drip at this point does not require any vasopressor. Will continue to stabilize patient hopefully pulse rate will drop down to be more stable to be cardioversion eventually will continue BiPAP continue ICU management. 02/17/2024: Patient is off BiPAP today pulse rate is 120s still in a flutter, plan with cardiology to do transesophageal echocardiogram and if there is no thrombus is given the going for cardioversion today. Still on IV antibiotics, still on high flow oxygen at this point was started on amiodarone 5 to bring his pulse rate down little bit. His kidney function slightly was down from before with creatinine up to 2.63. Continue to make good urine output so far. My fear with his transesophageal echocardiogram or any testing that he has an extremely severe spinal stenosis and problem with his cervical spine second third and fourth we have just to be careful tilting his neck backwards specially required intubation. Patient shortness of breath has been much better and is not having any chest pain today. Remain in ICU require more help still seen nephrology inside intensive care pulmonary and cardiology. 02/18/2024: He had cardioversion yesterday successfully after transesophageal echocardiogram and seems still to be running in the 70s, was on amiodarone drip which was stopped today because of declining kidney function. He is GFR down significantly with bun up to 19 creatinine 3.50. His shortness of breath had significantly decreased. Patient is still making good urine output does not need any hemodialysis at this point. He is on 3 L of O2 able to talk comfortably today hemoglobin is down to 8.9 electrolytes are better with exception of creatinine. Patient remain in the ICU for the next 24 hours. Treatment for his pneumonia still with IV and hide currently seems to be successful patient is doing well. REVIEW OF SYSTEMS: CONSTITUTIONAL: Morbid obesity and mild respiratory distress. EYES: No icterus sclerae, no conjunctivitis. EARS, NOSE, MOUTH, THROAT, and FACE: No sore throat, lymphadenopathy, carotid bruits or deformity. RESPIRATORY: Positive shortness of breath cough or wheezes. CARDIOVASCULAR: Positive PND orthopnea palpitation. GASTROINTESTINAL: No Abd pain, Nausea or vomiting, no Diarrhea or constipation, No GI Bleed, no distention or masses. GENITOURINARY: No polyuria nocturia without any hematuria. INTEGUMENT/BREAST: Negative for any muscular injury with mild osteoarthritis.. HEMATOLOGIC/LYMPHATIC: Chronic anemia with no bleeding. MUSCULOSKELTAL: Negative for Myalgia or arthralgia. NEURLOGICAL: No LOC, Sz or syncope, blurred vision dizziness or abnormality.. BEHAVIORAL/PSYCH: Negative. ENDOCRINE: Negative. PHYSICAL EXAMINATION: General Appearance: Overweight in mild respiratory distress. Neck HEENT: Supple, no lymphadenopathy, no thyroid enlargement, no carotid bruits. Lungs: Decreased breath sound bilaterally especially the left side with fine rhonchi positive crackles in the bases positive mild inspiratory expiratory wheezes. Chest Wall: Decreased expansion with deep inspiration no tenderness and no deformity was found on exam, no costochondral pain or discomfort. Heart: Irregular rate and rhythm, S1, S2 positive S3 positive PVCs. Back: Symmetric, no curvature, ROM normal, no CVA tenderness. Abdomen: Soft, non-tender, bowel sounds active all four quadrants, no masses, no organomegaly. Extremities: Extremities normal, atraumatic, no cyanosis positive edema. Pulses: 2+ and symmetric. Skin: Skin color, texture, tugor normal, no rashes or lesions. Neurologic: Alert oriented x3 cranial nerves II through XII intact, no motor deficit, no abnormal balance or gait. ASSESSMENT AND PLAN: _Acute respiratory failure: Combination of congestive heart failure along with arrhythmia and left lower lobe pneumonia. He is off BiPAP on 2 L of O2 doing well. _Left lower lobe pneumonia: To lower the side effect of the azithromycin on his antirejection drugs he is on doxycycline orally along with Rocephin and seems to respond well to it. _A flutter with rapid ventricular response: Had his transesophageal with no thrombus and up having cardioversion while he still on amiodarone he become extremely bradycardic amiodarone drip was terminated and he is on amiodarone oral 200 mg a day only. _Congestive heart failure acute with mild exacerbation mostly systolic dysfunction at this point he is known to have coronary artery disease post CABG his ejection fraction last known 50 percentile echocardiogram will be ordered for the morning will continue diuretics as well. _Valvular heart disease: With severe mitral regurgitation and bio static aortic valve not well-visualized but size only 1.0 cm. Continue medical management for now need different type of echo for more active seen on the aortic valve. _Type 2 diabetes not well-controlled noncompliance to medication has been mostly on Lantus 70 units daily along with NovoLog 35 units AC meals plus sliding scales coverage. Changing his insulin dose currently and if needed will switch patient to insulin drip. _End-stage renal disease posttransplant remain on antirejection drugs will consult nephrology continue mycophenolate acid along with Prograf and still on prednisone 5 mg daily. Still making urine output does not require dialysis so far. _Stage IIIb chronic kidney disease posttransplant continue hydration avoid nephrotoxic agent type II preserve any kidney function. Kidney function is slightly worse but continue to be polyuric at this point does not require any dialysis. _Hypertension:_Has been on hydralazine 50 mg twice a day, amlodipine 10 mg daily, metoprolol titrate 50 mg 3 times a day. _Hyperlipidemia: Has been on Lipitor 40 mg a day currently medication. _BPH watch for any urinary retention. CODE STATUS: Full code. Prognosis: Fair. Discussion: Kidney function is slightly bit worse does not requiring dialysis, had cardioversion with heart rate down to the 60 bpm still on amiodarone 200 mg daily which seem to control his A-flutter quite well. Continue current management patient remain in the ICU in the next 24 hours. Objective - Vital Signs Vital signs: Vital Signs Temp 97.8 F 02/18/24 04:00 Pulse 84 02/18/24 07:42 Resp 23 02/18/24 07:00 BP 124/62 02/18/24 07:00 Pulse Ox 93 L 02/18/24 07:00 FiO2 60 02/18/24 04:00 Intake & Output 02/17/24 02/18/24 02/18/24 18:59 06:59 18:59 Intake Total 120 368.06 10 Output Total 485 355 30 Balance -365 13.06 -20 Weight 96 kg Intake: IV 120 160 10 Normal Saline 120 110 10 cefTRIAXone 2 gm In 50 Sodium Chloride 0.9% 50 ml @ 100 mls/hr IVPB DAILY@2100 [facility] Rx#: [id number] Intake, IV Titration 208.06 Amount Amiodarone 450 mg In 208.06 Dextrose 5% in Water 250 ml @ 0.5 MG/MIN 16.667 mls/hr IV .Q15H [facility] Rx#: [id number] Output: Urine 485 355 30 Other: Voiding Method Indwelling Catheter Indwelling Catheter - Labs CBC & Chem 7: 02/19/24 04:17 02/19/24 04:12 Labs: Abnormal Lab Results - Last 24 Hours (Table) 02/16/24 02/17/24 02/17/24 Range/Units 09:30 12:07 17:11 RBC (4.30-5.90) m/uL Hgb (13.0-17.5) gm/dL Hct (39.0-53.0) % MCHC (31.0-37.0) g/dL Lymphocytes # (1.0-4.8) k/uL APTT (22.0-30.0) sec Sodium (137-145) mmol/L BUN (9-20) mg/dL Creatinine (0.66-1.25) mg/dL Glucose (74-99) mg/dL POC Glucose (mg/dL) 117 H 256 H (70-110) mg/dL Tacrolimus 3.7 L (5.0-20.0) ng/mL 02/17/24 02/18/24 02/18/24 Range/Units 19:54 05:47 05:47 RBC 3.17 L (4.30-5.90) m/uL Hgb 8.9 L (13.0-17.5) gm/dL Hct 30.0 L (39.0-53.0) % MCHC 29.6 L (31.0-37.0) g/dL Lymphocytes # 0.6 L (1.0-4.8) k/uL APTT (22.0-30.0) sec Sodium 135 L (137-145) mmol/L BUN 90 H (9-20) mg/dL Creatinine 3.50 H (0.66-1.25) mg/dL Glucose 112 H (74-99) mg/dL POC Glucose (mg/dL) 213 H (70-110) mg/dL Tacrolimus (5.0-20.0) ng/mL 02/18/24 Range/Units 05:47 RBC (4.30-5.90) m/uL Hgb (13.0-17.5) gm/dL Hct (39.0-53.0) % MCHC (31.0-37.0) g/dL Lymphocytes # (1.0-4.8) k/uL APTT 73.6 H (22.0-30.0) sec Sodium (137-145) mmol/L BUN (9-20) mg/dL Creatinine (0.66-1.25) mg/dL Glucose (74-99) mg/dL POC Glucose (mg/dL) (70-110) mg/dL Tacrolimus (5.0-20.0) ng/mL Microbiology - Last 24 Hours (Table) 02/15/24 22:57 Blood Culture - Preliminary Blood 02/16/24 00:10 Blood Culture - Preliminary Blood
[2024-02-19] MEDS: METOPROLOL TARTRATE 25 MG TAB PO SCH (08:05)
[2024-02-19] MEDS: predniSONE 5 MG TAB PO SCH (10:11)
--- NOTE | 2024-02-19 10:29 | P.PN ---
Subjective Patient is seen for follow-up for acute kidney injury and chronic kidney disease. back on BiPAP Urine output 840 mL for 24 hours. Serum creatinine staying at 3.5 mg/dL off of Lasix repeat tacrolimus level was 4.7 Objective - Vital Signs Vital signs: Vital Signs Temp 98.2 F 02/19/24 04:00 Pulse 64 02/19/24 10:00 Resp 22 02/19/24 10:00 BP 134/80 02/19/24 10:00 Pulse Ox 97 02/19/24 10:00 FiO2 50 02/19/24 10:00 Intake & Output 02/18/24 02/19/24 02/19/24 18:59 06:59 18:59 Intake Total 600 160 280 Output Total 243 600 0 Balance 357 -440 280 Weight 98.2 kg Intake: IV 110 160 40 Normal Saline 110 110 40 cefTRIAXone 2 gm In 50 Sodium Chloride 0.9% 50 ml @ 100 mls/hr IVPB DAILY@2100 [facility] Rx#: [id number] Oral 490 240 Output: Urine 240 600 0 Post Void Residual 3 Other: Voiding Method Indwelling Catheter Indwelling Catheter Indwelling Catheter - Exam patient is awake, comfortable. No acute distress Examination of the heart S1 and S2 Examination of the lungs bilateral breath sounds are heard with decreased breath sounds at the bases Abdomen is soft obese nontender Examination of lower extremities shows 1+ edema [employer] exam grossly intact - Labs CBC & Chem 7: 02/19/24 04:17 02/19/24 04:12 Labs: Abnormal Lab Results - Last 24 Hours (Table) 02/17/24 02/18/24 02/19/24 Range/Units 04:39 11:41 04:12 RBC (4.30-5.90) m/uL Hgb (13.0-17.5) gm/dL Hct (39.0-53.0) % MCHC (31.0-37.0) g/dL Sodium 136 L (137-145) mmol/L BUN 102 H* (9-20) mg/dL Creatinine 3.53 H (0.66-1.25) mg/dL Glucose 116 H (74-99) mg/dL POC Glucose (mg/dL) 111 H (70-110) mg/dL Urine Protein (Negative) Urine RBC (0-5) /hpf Urine WBC (0-5) /hpf Urine Bacteria (None) /hpf Hyaline Casts (0-2) /lpf Urine Mucus (None) /hpf Tacrolimus 4.7 L (5.0-20.0) ng/mL 02/19/24 02/19/24 02/19/24 Range/Units 04:17 06:00 06:23 RBC 3.21 L (4.30-5.90) m/uL Hgb 9.0 L (13.0-17.5) gm/dL Hct 30.4 L (39.0-53.0) % MCHC 29.5 L (31.0-37.0) g/dL Sodium (137-145) mmol/L BUN (9-20) mg/dL Creatinine (0.66-1.25) mg/dL Glucose (74-99) mg/dL POC Glucose (mg/dL) 147 H (70-110) mg/dL Urine Protein 1+ H (Negative) Urine RBC 9 H (0-5) /hpf Urine WBC 6 H (0-5) /hpf Urine Bacteria Rare H (None) /hpf Hyaline Casts 4 H (0-2) /lpf Urine Mucus Rare H (None) /hpf Tacrolimus (5.0-20.0) ng/mL Microbiology - Last 24 Hours (Table) 02/15/24 22:57 Blood Culture - Preliminary Blood 02/16/24 00:10 Blood Culture - Preliminary Blood 02/15/24 18:20 Gram Stain - Final Sputum Sputum Culture - Final Assessment and Plan Assessment: 1. 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 2. Recent episode of acute kidney injury on 12/02/2023 with serum creatinine at 3.47 about 4 weeks ago in [place]. 3. A. fib with RVR, status post cardioversion 4. Acute hypoxic respiratory failure secondary to pneumonia 5. Status post donor renal transplant in 2012 at [facility] [place] maintained on tacrolimus prednisone and Myfortic. Tacrolimus level 3.7 on 02/16/2024. This will be repeated. 6. Anemia of chronic disease rule out iron deficiency 7. Acute kidney injury, cardiorenal and associated with hemodynamic instability from A-fib/RVR. Nonoliguric ATN 8. Metabolic acidosis associated with acute kidney injury and calcineurin inhibitors 9. Mild hyperkalemia associated with metabolic acidosis and calcineurin inhibitor use 10. Volume overload Plan: continue with empiric antibiotics. monitor volume status closely as Lasix is currently on hold. continue oral sodium bicarb Repeat labs in a.m.
--- NOTE | 2024-02-19 10:55 | P.PN ---
Subjective Progress Note Date: 02/19/24 Principal diagnosis: Respiratory failure. Pulmonary consult dated February 15, 2024. 68-year-old male who was seen in the emergency department, on February 13. He came into the emergency department, complaining of shortness of breath, and, was told by his family doctor, to be evaluated in the emergency department. The patient was found in Dr. Finley's office to have a heart rate of 140 bpm, and to be very short of breath. The patient's heart rate was irregular, and atrial fibrillat ion was suspected. In addition, the patient was found to likely be in congestive heart failure. The patient was initially reluctant to come to the hospital and be admitted, but he finally did. He has a history of previous bypass grafting in 2018, [facility], and a kidney transplant, at the [facility] in 2012. More recently, the patient's renal function has declined. We will check a procalcitonin level. His N-terminal proBNP was 5620. When we saw him, he was on 2 L of oxygen, and receiving Cardizem drip at 10 mg an hour. He appeared to be in moderate distress. He was coughing frequently, and was clearly short of breath. In addition to bypass grafting, and kidney transplantation, the patient has a history of hyperlipidemia, and hypertension, as well as gout. Also, the patient has a history of diabetes mellitus. He has no known allergies. The patient also apparently had a stroke at the age of 42. Current labs include white count 6.1, hemoglobin 9.7, hemat ocrit 32.6, and a normal platelet count. Coagulation studies were normal. Sodium 135, potassium 4.2, chlorides 106, CO2 20, anion gap 9, BUN 49, and creatinine 1.87. These electrolytes are consistent with a 9 anion gap metabolic acidosis. Glucose was 264. Lactic acid was 1. Troponin was 0.069. N-terminal proBNP was 5620. Procalcitonin level was elevated at 0.40. Chest x-ray showed a pattern consistent with either fluid overload/CHF, or possible pneumonia, left lung. Progress note dated February 16, 2024. 68-year-old male with a history of multiple medical problems, who was seen yesterday in the emergency department. He is seen again today in the emergency department, room 5. Unfortunately, the patient's respiratory status is declining, and, he was on high flow nasal cannula, and had to be converted to BiPAP. His BiPAP settings include 15/5, and 60%. The patient is receiving IV heparin via weight-based protocol, and a Cardizem drip at 15 mg an hour. Blood gases done on 50%, show pO2 of 66, pCO2 44, pH is 7.29. The patient will be given Lasix 60 mg IV push. I decided to transfer him to the intensive care unit, for further monitoring and management. His overall prognosis remains poor, and he may end up on mechanical ventilation. White count 8.8, hemoglobin 10.6, hematocrit 35, and platelet count 205,000. PTT is 46.5. Repeat blood gases show pO2 of 87, pCO2 of 45, pH is 7.28. These blood gases were done on his current BiPAP settings. For some reason, there is not a comprehensive metabolic profile today. Sputum is nondiagnostic at this time. Chest x-ray shows a worsening pattern, with patchy and confluent bilateral airspace disease, which could relate to effusions, fluid, pneumonia, etc. Progress note dated February 17, 2024. 68-year-old male who is seen today in room 253. He was initially seen in the emergency department. He came in with shortness of breath, and was noted to have atrial fibrillation with RVR, congestive heart failure, and possibly pn eumonia. The patient was placed on BiPAP. His BiPAP settings were 15/5, and 50%. He had a blood gas done yesterday showing a pO2 of 70, pCO2 44, and a pH of 7.34. The patient is currently on amiodarone at 0.5 mg/min, Cardizem at 15 mg an hour, and IV heparin via protocol. The patient is also getting saline at 10 cc an hour. Current labs include white count 8.7, hemoglobin 9.2, hematocrit 30.6, and platelet count 169,000. Sodium 135, potassium 4.3, chlorides 108, CO2 20, BUN 75, creatinine 2.69. Calcium is 9.5. Glucose is 90. Chest x-ray shows diffuse bilateral infiltrates, likely related to fluid overload, and/or pneumonia. The patient continues on Rocephin, and doxycycline. Progress note dated February 18, 2024. 68-year-old male seen in room 253. Yesterday, the patient had a transesophageal echocardiogram, followed by cardioversion. After the cardioversion, the patient was bradycardic, and received some atropine. Currently, he is on 3 L of oxygen, and getting saline at 10 cc an hour. He continues on IV heparin, and amiodarone at 0.5 mg/min. Both heparin and amiodarone will be turned off shortly. The patient did use BiPAP last night, with settings of 12/5, and 50%. Clinically, he looks much more comfortable. He is sitting up in bed. White count 8.6, hemoglobin 8.9, hematocrit 30, platelet count 197,000. PTT is 73.6. Sodium 135, potassium 4.6, chlorides 105, CO2 23, BUN 90, creatinine 3.5. Glucose is 110. Calcium is 9.5. Blood and sputum sampling is thus far negative. Chest x- ray shows a pattern of fluid overload, and is essentially unchanged from the prior x-ray. Progress note dated February 19, 2024. 68-year-old male seen in room 253. The patient had a pretty good night last night. I was here last night at about 9 PM, and the patient was short of breath, so we had the nurse place him back on BiPAP, with settings of 12/5 and 50%. He used that for about 5 hours according to the nurse. Currently, the patient is getting oxygen by nasal cannula at 3 L. He is getting saline at 10 cc an hour. He still fairly short of breath, and has a productive cough, and shortness of breath as well. Current labs include a white count of 7.9, hemoglobin 9, hematocrit 30.4, and a normal platelet count. Sodium was 136, potassium 4.5, chlorides 106, CO2 22, anion gap 8, BUN 102, and creatinine 3.53. Glucose is 147. Calcium is 9.4. Urine showed some red blood cells, white blood cells, and some rare bacteria. Blood and sputum sampling, thus far, are n egative. No chest x-ray today. Yesterday's chest x-ray did show some improvement. All in all, I think the patient is moving in a positive direction. Objective - Vital Signs Vital signs: Vital Signs Temp 98.2 F 02/19/24 04:00 Pulse 64 02/19/24 10:00 Resp 22 02/19/24 10:00 BP 134/80 02/19/24 10:00 Pulse Ox 97 02/19/24 10:00 FiO2 50 02/19/24 10:00 Intake & Output 02/18/24 02/19/24 02/19/24 18:59 06:59 18:59 Intake Total 600 160 280 Output Total 243 600 0 Balance 357 -440 280 Weight 98.2 kg Intake: IV 110 160 40 Normal Saline 110 110 40 cefTRIAXone 2 gm In 50 Sodium Chloride 0.9% 50 ml @ 100 mls/hr IVPB DAILY@2100 [facility] Rx#: [id number] Oral 490 240 Output: Urine 240 600 0 Post Void Residual 3 Other: Voiding Method Indwelling Catheter Indwelling Catheter Indwelling Catheter - Exam No acute distress, much improved, currently on nasal O2, at 3 L. HEENT examination is grossly unremarkable. Mucous membranes are moist. No oral lesions. Neck supple. Full range of motion. No adenopathy thyromegaly or neck vein distention. Cardiovascular examination reveals an regular rhythm and rate. S1-S2 normal. No S3 or S4. No discernible murmur noted. Heart rate 64 bpm. Lungs reveal bilateral coarse rhonchi. Basilar crackles are noted. No wheezes. Breath sounds are equal bilaterally. Saturation is 95 % on 3 L. Abdomen obese, but without tenderness. Extremities are intact. No signs or clubbing. There is 1+ edema. Skin is without rash or lesion. Neurologic examination is brief but nonfocal. - Labs CBC & Chem 7: 02/19/24 04:17 02/19/24 04:12 Labs: Abnormal Lab Results - Last 24 Hours (Table) 02/17/24 02/18/24 02/19/24 Range/Units 04:39 11:41 04:12 RBC (4.30-5.90) m/uL Hgb (13.0-17.5) gm/dL Hct (39.0-53.0) % MCHC (31.0-37.0) g/dL Sodium 136 L (137-145) mmol/L BUN 102 H* (9-20) mg/dL Creatinine 3.53 H (0.66-1.25) mg/dL Glucose 116 H (74-99) mg/dL POC Glucose (mg/dL) 111 H (70-110) mg/dL Urine Protein (Negative) Urine RBC (0-5) /hpf Urine WBC (0-5) /hpf Urine Bacteria (None) /hpf Hyaline Casts (0-2) /lpf Urine Mucus (None) /hpf Tacrolimus 4.7 L (5.0-20.0) ng/mL 02/19/24 02/19/24 02/19/24 Range/Units 04:17 06:00 06:23 RBC 3.21 L (4.30-5.90) m/uL Hgb 9.0 L (13.0-17.5) gm/dL Hct 30.4 L (39.0-53.0) % MCHC 29.5 L (31.0-37.0) g/dL Sodium (137-145) mmol/L BUN (9-20) mg/dL Creatinine (0.66-1.25) mg/dL Glucose (74-99) mg/dL POC Glucose (mg/dL) 147 H (70-110) mg/dL Urine Protein 1+ H (Negative) Urine RBC 9 H (0-5) /hpf Urine WBC 6 H (0-5) /hpf Urine Bacteria Rare H (None) /hpf Hyaline Casts 4 H (0-2) /lpf Urine Mucus Rare H (None) /hpf Tacrolimus (5.0-20.0) ng/mL Microbiology - Last 24 Hours (Table) 02/15/24 22:57 Blood Culture - Preliminary Blood 02/16/24 00:10 Blood Culture - Preliminary Blood 02/15/24 18:20 Gram Stain - Final Sputum Sputum Culture - Final Assessment and Plan Assessment: Acute hypoxemic respiratory failure, likely multifactorial, in part related to atrial fibrillation/RVR, CHF/fluid overload, and possible pneumonia. S/P transesophageal echocardiogram, and cardioversion, February 17, 2024. History of kidney transplantation, 2013, at [facility]. Previous bypass grafting, 2019, [facility]. History of hypertension. History of hyperlipidemia. History of diabetes mellitus. History of gout. History of CVA, at age 42. Plan: Plan dated February 15, 2024. The patient is seen in the emergency department, room 5. He is currently on a Cardizem drip at 10 mg an hour, and O2 by nasal cannula at 2 L. The patient does look somewhat uncomfortable, and has a frequent cough. Labs, x-rays, and medications are reviewed. The patient is receiving azithromycin, and Rocephin for possible pneumonia. In addition, the patient is on the Cardizem drip at 10 mg an hour. The patient is also receiving IV heparin per protocol, and metoprolol. I will add some breathing treatments to the patient's regimen. Additional recommendations and suggestions are forthcoming. Prognosis is certainly guarded. Plan dated February 16, 2024. I was notified by the nurse in the emergency department, the patient's respiratory status had declined. I recommended BiPAP therapy, with settings of 15/5, and 60%. The patient was seen in the emergency department initially, and, the patient is transferred up to the intensive care unit, for further monitoring and management. The patient had a repeat blood gas, which showed stability, but , the patient's overall condition remains tenuous. He remains on IV heparin, and Cardizem drip at 15 mg an hour. I did speak to his sister, Makenzie Busby, and told her that the patient may end up on mechanical ventilation. Labs, x-rays, and medications are reviewed. Prognosis is very guarded. We will continue to follow make recommendations along the way. I am going to DC the patient's prednisone and start him on hydrocortisone, at stress doses. Plan dated February 17, 2024. Yesterday, the patient was taken off BiPAP, but only lasted a few minutes off of BiPAP, became very short of breath, and had reductions in his saturations. He has been on BiPAP through the night. We will attempt again to put him on nasal cannula, at 5 L/min. Labs, x-rays, and medications are reviewed. Clinically, t he patient looks better. He is much more awake and alert. The patient will have a transesophageal echocardiogram, and cardioversion today. Additional recommendations and suggestions are forthcoming. Labs, x-rays, medications are reviewed. I did send a trough tacrolimus level to the lab. We will continue to follow patient, and make recommendations. In addition, I did put the patient on stress doses of corticosteroids, as she is typically on prednisone 5 mg a day, following his kidney transplant. Plan dated February 18, 2024. The patient had a transesophageal echocardiogram, and cardioversion yesterday. The patient is currently in sinus rhythm. The patient's IV heparin will be turned down. Amiodarone will be discontinued. Labs, x-rays, and medications are reviewed. The patient is still a little short of breath, and his chest x- ray is basically unchanged. We will continue to follow the patient in the intensive care unit. His renal function is a bit worse. His trough tacrolimus level is 3.7. Labs, x-rays, and medications are reviewed. We will continue to follow the patient, make recommendations along the way. Prognosis is guarded. Plan dated February 19, 2024. The patient seems to be doing a bit better. He still very short of breath, with a congested cough, and occasional phlegm production. The patient is using BiPAP, alternating with 3 L by nasal cannula. Last night when I was here, he was very short of breath, and we placed him back on BiPAP, which he used for ab out 5 hours. Labs, x-rays, and medications are reviewed. The patient's overall prognosis remains guarded. He continues on antibiotics in the form of Rocephin, and doxycycline. Cultures are thus far negative. The patient's hydrocortisone will be converted back to prednisone 5 mg a day. Additional recommendations and suggestions are forthcoming. Prognosis is guarded. Time with Patient: Greater than 30
[2024-02-19 11:14] LABS: Glucose,Whole Blood 290 mg/dL (70-110)
[2024-02-19] MEDS: FUROSEMIDE 10 MG/ML 4 ML VIAL IV STA (11:53)
[2024-02-19 17:26] LABS: Glucose,Whole Blood 196 mg/dL (70-110)
--- NOTE | 2024-02-19 18:03 | P.PN ---
Subjective Progress Note Date: 02/19/24 HPI: [This gentleman has bilateral pneumonia and atrial flutter. He underwent electrical cardioversion after transesophageal echo and has remained in sinus rhythm hemodynamically stable. Progress note 02/19/2024 Patient reports feeling better. He continues to be in sinus rhythm. Chest x- ray from yesterday did show improvement, appears euvolemic. Denies any chest pain chest pressure. Overnight patient's heart rate was on the lower side. PHYSICIAL EXAM: [Vital signs are stable no JVD S1-S2 heard normally ejection systolic murmur is audible at the base of the heart second heart sound is preserved lungs reveal improved air entry abdomen is soft the lower extremities reveal diminished pulses Central nervous system is normal]. IMPRESSION: 1. [Bilateral pneumonia with hypoxia improving]. 2. [Atrial flutter s/p a transesophageal echo and electrical cardioversion maintaining sinus rhythm]. 3. [History of CAD with prior bypass surgery and aortic valve replacement stable in this regard]. 4. [History of renal transplantation creatinine in the range of 2.5-3.5.]. RECOMMENDATIONS: Reduce metoprolol to 25 mg twice daily. Continue amiodarone 200 mg daily Continue Eliquis 2.5 mg daily Add amlodipine 5 mg daily for blood pressure control. Lasix as needed Monitor renal function Okay to be moved out of ICU from cardiology perspective Objective - Vital Signs Vital signs: Vital Signs Temp 97.6 F 02/19/24 16:00 Pulse 60 02/19/24 17:00 Resp 15 02/19/24 17:00 BP 131/57 02/19/24 17:00 Pulse Ox 97 02/19/24 17:00 FiO2 50 02/19/24 15:41 Intake & Output 02/18/24 02/19/24 02/19/24 18:59 06:59 18:59 Intake Total 600 160 350 Output Total 243 600 200 Balance 357 -440 150 Weight 98.2 kg Intake: IV 110 160 110 Normal Saline 110 110 110 cefTRIAXone 2 gm In 50 Sodium Chloride 0.9% 50 ml @ 100 mls/hr IVPB DAILY@2100 [facility] Rx#: [id number] Oral 490 240 Output: Urine 240 600 200 Post Void Residual 3 Other: Voiding Method Indwelling Catheter Indwelling Catheter Indwelling Catheter - Labs CBC & Chem 7: 02/19/24 04:17 02/19/24 04:12 Labs: Abnormal Lab Results - Last 24 Hours (Table) 02/19/24 02/19/24 02/19/24 Range/Units 04:12 04:17 06:00 RBC 3.21 L (4.30-5.90) m/uL Hgb 9.0 L (13.0-17.5) gm/dL Hct 30.4 L (39.0-53.0) % MCHC 29.5 L (31.0-37.0) g/dL Sodium 136 L (137-145) mmol/L BUN 102 H* (9-20) mg/dL Creatinine 3.53 H (0.66-1.25) mg/dL Glucose 116 H (74-99) mg/dL POC Glucose (mg/dL) (70-110) mg/dL Urine Protein 1+ H (Negative) Urine RBC 9 H (0-5) /hpf Urine WBC 6 H (0-5) /hpf Urine Bacteria Rare H (None) /hpf Hyaline Casts 4 H (0-2) /lpf Urine Mucus Rare H (None) /hpf 02/19/24 02/19/24 02/19/24 Range/Units 06:23 11:13 17:25 RBC (4.30-5.90) m/uL Hgb (13.0-17.5) gm/dL Hct (39.0-53.0) % MCHC (31.0-37.0) g/dL Sodium (137-145) mmol/L BUN (9-20) mg/dL Creatinine (0.66-1.25) mg/dL Glucose (74-99) mg/dL POC Glucose (mg/dL) 147 H 290 H 196 H (70-110) mg/dL Urine Protein (Negative) Urine RBC (0-5) /hpf Urine WBC (0-5) /hpf Urine Bacteria (None) /hpf Hyaline Casts (0-2) /lpf Urine Mucus (None) /hpf Microbiology - Last 24 Hours (Table) 02/15/24 22:57 Blood Culture - Preliminary Blood 02/16/24 00:10 Blood Culture - Preliminary Blood
[2024-02-19 20:06] LABS: Glucose,Whole Blood 191 mg/dL (70-110)
--- NOTE | 2024-02-19 20:43 | P.PN ---
Subjective Progress Note Date: 02/19/24 HISTORY OF PRESENT ILLNESS: 68-year-old office patient with active medical history of atherosclerotic heart disease post CABG, end-stage renal disease post renal transplant at [facility] over 10 years ago, chronic stage IIIb kidney disease, hypertension, hyperlipidemia, chronic neuropathy, obesity, obstructive sleep apnea, mild peripheral arterial disease, who was back at [facility] few months ago for worsening kidney function was hospitalized for few days. He was not in the office on 02/14/2024 with complaining of severe dyspnea and shortness of b reath with cough productive phlegm not been able to lay down flat mild fluid overload with worsening PND and orthopnea was having significant tachypnea and tachycardia with hypoxia. Pulse ox was less than 90 percentile looks the same time and failure but might have double pneumonia. Patient was sent to the emergency room at [facility] where was seen and evaluated Surprisingly h is hemoglobin came back at 10.1 with white blood cell 6.0 creatinine 1.87 close to the last creatinine he has before leaving [facility] a few months ago his blood sugar was elevated at 264 with mildly elevated troponin 0.069 BNP 8 6620. His EKG from the office and from the emergency department showed atrial flutter with pulse rate running at 142 bpm quite irregular. Chest x-ray shows l eft lower lung airspace opacification correlate with pneumonia and mild congestive heart failure as well. Patient was started on IV antibiotics with ceftriaxone 2 g Cardizem drip was started to bring his pulse rate down not helpful or successful at the time. Consult cardiology and pulmonary patient admitted to the hospital. 02/16/2024: The patient remained extremely sick require to be move on to BiPAP, was transferred to the intensive care unit still tachycardic with pulse rate around 140 bpm close schedule initially to go for cardioversion after transesophageal echocardiogram but with his respiratory failure on BiPAP not able to do this today patient is not stable continue current management for now patient manage higher dose of Cardizem was not started on amiodarone yet. Still have significant pulmonary edema being on diuretics 4. Much worsening kidney function compared to before and BNP still elevated. Continue to be treated for left lower lobe pneumonia there is transthoracic echocardiogram showed severely increased left ventricular wall thickening with left ventricular ejection fraction of 50-55 percentile with moderate mitral regurgitation who has b ioprosthetic aortic valve not well-visualized with his valve area is only 1 cm.. Please continue on azithromycin and Rocephin for possible pneumonia left-sided: Heparin drip and Cardizem drip at this point does not require any vasopressor. Will continue to stabilize patient hopefully pulse rate will drop down to be more stable to be cardioversion eventually will continue BiPAP continue ICU management. 02/17/2024: Patient is off BiPAP today pulse rate is 120s still in a flutter, plan with cardiology to do transesophageal echocardiogram and if there is no thrombus is given the going for cardioversion today. Still on IV antibiotics, still on high flow oxygen at this point was started on amiodarone 5 to bring his pulse rate down little bit. His kidney function slightly was down from before with creatinine up to 2.63. Continue to make good urine output so far. My fear with his transesophageal echocardiogram or any testing that he has an extremely severe spinal stenosis and problem with his cervical spine second third and fourth we have just to be careful tilting his neck backwards specially required intubation. Patient shortness of breath has been much better and is not having any chest pain today. Remain in ICU require more help still seen nephrology inside intensive care pulmonary and cardiology. 02/18/2024: He had cardioversion yesterday successfully after transesophageal echocardiogram and seems still to be running in the 70s, was on amiodarone drip which was stopped today because of declining kidney function. He is GFR down significantly with bun up to 19 creatinine 3.50. His shortness of breath had significantly decreased. Patient is still making good urine output does not need any hemodialysis at this point. He is on 3 L of O2 able to talk comfortably today hemoglobin is down to 8.9 electrolytes are better with exception of creatinine. Patient remain in the ICU for the next 24 hours. Treatment for his pneumonia still with IV and hide currently seems to be successful patient is doing well. 02/19/2024: Patient has 1 more shortness of breath today he is using BiPAP, slightly worsening kidney function with bun 102 creatinine 3.53, mildly elevated blood sugar, hemoglobin is down to 9.0 platelet count 200. Continue empiric IV antibiotics remain on Rocephin 2 g IV daily still on doxycycline as well. Amiodarone was decreased to 200 mg daily with pulse rates under control pulse still irregular since cardioversion. Despite worsening kidney function patient is still making good urine output. Blood sugar has been slightly better. No further chest pain or angina at this point, metoprolol was reduced to 25 mg twice a day still on Eliquis 2.5 mg twice a day as well. His blood pressure is slightly better. REVIEW OF SYSTEMS: CONSTITUTIONAL: Morbid obesity and mild respiratory distress. EYES: No icterus sclerae, no conjunctivitis. EARS, NOSE, MOUTH, THROAT, and FACE: No sore throat, lymphadenopathy, carotid bruits or deformity. RESPIRATORY: Positive shortness of breath cough or wheezes. CARDIOVASCULAR: Positive PND orthopnea palpitation. GASTROINTESTINAL: No Abd pain, Nausea or vomiting, no Diarrhea or constipation, No GI Bleed, no distention or masses. GENITOURINARY: No polyuria nocturia without any hematuria. INTEGUMENT/BREAST: Negative for any muscular injury with mild osteoarthritis.. HEMATOLOGIC/LYMPHATIC: Chronic anemia with no bleeding. MUSCULOSKELTAL: Negative for Myalgia or arthralgia. NEURLOGICAL: No LOC, Sz or syncope, blurred vision dizziness or abnormality.. BEHAVIORAL/PSYCH: Negative. ENDOCRINE: Negative. PHYSICAL EXAMINATION: General Appearance: Overweight in mild respiratory distress. Neck HEENT: Supple, no lymphadenopathy, no thyroid enlargement, no carotid bruits. Lungs: Decreased breath sound bilaterally especially the left side with fine rhonchi positive crackles in the bases positive mild inspiratory expiratory wheezes. Chest Wall: Decreased expansion with deep inspiration no tenderness and no def ormity was found on exam, no costochondral pain or discomfort. Heart: Irregular rate and rhythm, S1, S2 positive S3 positive PVCs. Back: Symmetric, no curvature, ROM normal, no CVA tenderness. Abdomen: Soft, non-tender, bowel sounds active all four quadrants, no masses, no organomegaly. Extremities: Extremities normal, atraumatic, no cyanosis positive edema. Pulses: 2+ and symmetric. Skin: Skin color, texture, tugor normal, no rashes or lesions. Neurologic: Alert oriented x3 cranial nerves II through XII intact, no motor deficit, no abnormal balance or gait. ASSESSMENT AND PLAN: _Acute respiratory failure: Combination of congestive heart failure along with arrhythmia and left lower lobe pneumonia. He is off BiPAP on 2 L of O2 doing well. _Left lower lobe pneumonia: Remain on Rocephin and doxycycline seem to respond well to it. _A flutter with rapid ventricular response: Pulse rate better mostly irregular slightly irregular sometimes remain on amiodarone and metoprolol. Still on Eliquis as well. _Congestive heart failure acute with mild exacerbation mostly systolic dysfunction at this point he is known to have coronary artery disease post CABG his ejection fraction last known 50 percentile echocardiogram will be ordered for the morning will continue diuretics as well. _Advanced kidney failure mostly stage IV: Still see nephrology his posttranspl ant remain on antirejection medication still on management for acute kidney injury with acute metabolic acidosis associated with proteinuria and Hibiclens. Also still have mild hyperkalemia associated with metabolic acidosis. He is mildly fluid overload still on diuretics as well. _Valvular heart disease: With severe mitral regurgitation and bio static aortic valve not well-visualized but size only 1.0 cm. Continue medical management for now need different type of echo for more active seen on the aortic valve. _Type 2 diabetes not well-controlled noncompliance to medication has been mostly on Lantus 70 units daily along with NovoLog 35 units AC meals plus sliding scales coverage. Continue to adjust insulin dose to keep his blood sugar under 150. _End-stage renal disease posttransplant remain on antirejection drugs will consult nephrology continue mycophenolate acid along with Prograf and still on prednisone 5 mg daily. Still making urine output does not require dialysis so far. _Stage IIIb chronic kidney disease posttransplant continue hydration avoid nephrotoxic agent type II preserve any kidney function. She does not require dialysis yet. _Hypertension:_Has been on hydralazine 50 mg twice a day, amlodipine 10 mg daily, metoprolol titrate 50 mg 3 times a day. _Hyperlipidemia: Has been on Lipitor 40 mg a day currently medication. _BPH watch for any urinary retention. CODE STATUS: Full code. Prognosis: Fair. Discussion: Continue antibiotics, continue supportive care with oxygen continue to watch fluid overload and continue to manage his kidney failure currently without dialysis. Objective - Vital Signs Vital signs: Vital Signs Temp 98.2 F 02/19/24 04:00 Pulse 66 02/19/24 07:00 Resp 16 02/19/24 07:00 BP 126/58 02/19/24 07:00 Pulse Ox 92 L 02/19/24 07:00 FiO2 50 02/19/24 04:00 Intake & Output 02/18/24 02/19/24 02/19/24 18:59 06:59 18:59 Intake Total 600 160 250 Output Total 243 600 Balance 357 -440 250 Weight 98.2 kg Intake: IV 110 160 10 Normal Saline 110 110 10 cefTRIAXone 2 gm In 50 Sodium Chloride 0.9% 50 ml @ 100 mls/hr IVPB DAILY@2100 [facility] Rx#: [id number] Oral 490 240 Output: Urine 240 600 Post Void Residual 3 Other: Voiding Method Indwelling Catheter Indwelling Catheter - Labs CBC & Chem 7: 02/19/24 04:17 02/19/24 04:12 Labs: Abnormal Lab Results - Last 24 Hours (Table) 02/17/24 02/18/24 02/19/24 Range/Units 04:39 11:41 04:12 RBC (4.30-5.90) m/uL Hgb (13.0-17.5) gm/dL Hct (39.0-53.0) % MCHC (31.0-37.0) g/dL Sodium 136 L (137-145) mmol/L BUN 102 H* (9-20) mg/dL Creatinine 3.53 H (0.66-1.25) mg/dL Glucose 116 H (74-99) mg/dL POC Glucose (mg/dL) 111 H (70-110) mg/dL Urine Protein (Negative) Urine RBC (0-5) /hpf Urine WBC (0-5) /hpf Urine Bacteria (None) /hpf Hyaline Casts (0-2) /lpf Urine Mucus (None) /hpf Tacrolimus 4.7 L (5.0-20.0) ng/mL 02/19/24 02/19/24 02/19/24 Range/Units 04:17 06:00 06:23 RBC 3.21 L (4.30-5.90) m/uL Hgb 9.0 L (13.0-17.5) gm/dL Hct 30.4 L (39.0-53.0) % MCHC 29.5 L (31.0-37.0) g/dL Sodium (137-145) mmol/L BUN (9-20) mg/dL Creatinine (0.66-1.25) mg/dL Glucose (74-99) mg/dL POC Glucose (mg/dL) 147 H (70-110) mg/dL Urine Protein 1+ H (Negative) Urine RBC 9 H (0-5) /hpf Urine WBC 6 H (0-5) /hpf Urine Bacteria Rare H (None) /hpf Hyaline Casts 4 H (0-2) /lpf Urine Mucus Rare H (None) /hpf Tacrolimus (5.0-20.0) ng/mL Microbiology - Last 24 Hours (Table) 02/15/24 22:57 Blood Culture - Preliminary Blood 02/16/24 00:10 Blood Culture - Preliminary Blood 02/15/24 18:20 Gram Stain - Final Sputum Sputum Culture - Final
[2024-02-19] MEDS ORDERED: LORazepam 2 MG/ML INJ IV PRN (21:23)
--- NOTE | 2024-02-19 21:26 | XR ---
EXAMINATION TYPE: XR chest 1V portable DATE OF EXAM: 02/19/2024 8:43 PM CLINICAL INDICATION:Male, 68 years old with history of SOB; COMPARISON: Chest radiographs from 02/18/2024. TECHNIQUE: XR chest 1V portable Frontal view of the chest. FINDINGS: Lungs/Pleura: e focal airspace opacification right lower lobe possibly representing consolidation new from prior. There is no evidence of pleural effusion, focal consolidation, or pneumothorax. Pulmonary vascularity: Mild pulmonary vascular congestion. Heart/mediastinum: Cardiomediastinal silhouette is enlarged and stable. Atherosclerotic calcificatio ns are seen in the aorta. Left atrial appendage occlusion device is present. Musculoskeletal: No acute osseous pathology. Midline sternotomy wires are noted. IMPRESSION: Right lower lobe airspace opacity unclear if it's summation of overlapping soft tissues or consolidat ion. Congestive heart failure changes correlate with serum BNP.
[2024-02-19] MEDS: MORPHINE SULFATE 2 MG/ML SYRINGE IVP PRN (21:37)
[2024-02-20 05:06] LABS: HCT 29.5 % (39.0-53.0); HGB 8.8 gm/dL (13.0-17.5); Hypochromasia Moderate; MCH 27.9 pg (25.0-35.0); MCHC 29.8 g/dL (31.0-37.0); MCV 93.5 fL (80.0-100.0); Platelet Count 202 k/uL (150-450); RBC 3.16 m/uL (4.30-5.90); RDW 14.3 % (11.5-15.5); WBC 7.2 k/uL (3.8-10.6)
--- NOTE | 2024-02-20 05:23 | P.PN ---
Subjective Progress Note Date: 02/20/24 HPI: [This gentleman has bilateral pneumonia and atrial flutter. He underwent electrical cardioversion after transesophageal echo and has remained in sinus rhythm hemodynamically stable. Progress note 02/19/2024 Patient reports feeling better. He continues to be in sinus rhythm. Chest x- ray from yesterday did show improvement, appears euvolemic. Denies any chest pain chest pressure. Overnight patient's heart rate was on the lower side. Progress note 02/20/2024 Patient is feeling better. Patient continues to be in sinus rhythm. No reported arrhythmias in last 24 hours on telemetry monitoring. Patient denies any chest pain chest pressure. Appears somewhat euvolemic. BP 110-120 mmHg, heart rate 50s to 60s beats per minute. PHYSICIAL EXAM: [Vital signs are stable no JVD S1-S2 heard normally ejection systolic murmur is audible at the base of the heart second heart sound is preserved lungs reveal improved air entry abdomen is soft the lower extremities reveal diminished pulses Central nervous system is normal]. IMPRESSION: 1. [Bilateral pneumonia with hypoxia improving]. 2. [Atrial flutter s/p a transesophageal echo and electrical cardioversion maintaining sinus rhythm]. 3. [History of CAD with prior bypass surgery and aortic valve replacement stable in this regard]. 4. [History of renal transplantation creatinine in the range of 2.5-3.5.]. RECOMMENDATIONS: Reduce metoprolol to 25 mg twice daily. Continue amiodarone 200 mg daily Continue Eliquis 2.5 mg daily Add amlodipine 5 mg daily for blood pressure control. Lasix as needed Monitor renal function Okay to be moved out of ICU from cardiology perspective Objective - Vital Signs Vital signs: Vital Signs Temp 97 F L 02/20/24 04:00 Pulse 56 L 02/20/24 05:00 Resp 14 02/20/24 05:00 BP 123/55 02/20/24 05:00 Pulse Ox 98 02/20/24 05:00 FiO2 50 02/20/24 04:00 Intake & Output 02/19/24 02/19/24 02/20/24 06:59 18:59 06:59 Intake Total 160 360 100 Output Total 600 200 825 Balance -440 160 -725 Weight 98.2 kg Intake: IV 160 120 100 Normal Saline 110 120 100 cefTRIAXone 2 gm In 50 Sodium Chloride 0.9% 50 ml @ 100 mls/hr IVPB DAILY@2100 [facility] Rx#: [id number] Oral 240 Output: Urine 600 200 825 Other: Voiding Method Indwelling Catheter Indwelling Catheter Indwelling Catheter - Labs CBC & Chem 7: 02/20/24 04:40 02/19/24 04:12 Labs: Abnormal Lab Results - Last 24 Hours (Table) 02/19/24 02/19/24 02/19/24 Range/Units 06:00 06:23 11:13 RBC (4.30-5.90) m/uL Hgb (13.0-17.5) gm/dL Hct (39.0-53.0) % MCHC (31.0-37.0) g/dL POC Glucose (mg/dL) 147 H 290 H (70-110) mg/dL Urine Protein 1+ H (Negative) Urine RBC 9 H (0-5) /hpf Urine WBC 6 H (0-5) /hpf Urine Bacteria Rare H (None) /hpf Hyaline Casts 4 H (0-2) /lpf Urine Mucus Rare H (None) /hpf 02/19/24 02/19/24 02/20/24 Range/Units 17:25 20:04 04:40 RBC 3.16 L (4.30-5.90) m/uL Hgb 8.8 L (13.0-17.5) gm/dL Hct 29.5 L (39.0-53.0) % MCHC 29.8 L (31.0-37.0) g/dL POC Glucose (mg/dL) 196 H 191 H (70-110) mg/dL Urine Protein (Negative) Urine RBC (0-5) /hpf Urine WBC (0-5) /hpf Urine Bacteria (None) /hpf Hyaline Casts (0-2) /lpf Urine Mucus (None) /hpf Microbiology - Last 24 Hours (Table) 02/15/24 22:57 Blood Culture - Preliminary Blood 02/16/24 00:10 Blood Culture - Preliminary Blood
[2024-02-20 05:25] LABS: African American GFR (CKD) 21 (>60 ml/min/1.73 sqM); Anion Gap 6 mmol/L; Calcium 9.3 mg/dL (8.4-10.2); Carbon Dioxide 24 mmol/L (22-30); Chloride 106 mmol/L (98-107); Glucose 95 mg/dL (74-99); Non-African American GFR(CKD) 18 (>60 ml/min/1.73 sqM); Potassium 4.5 mmol/L (3.5-5.1); Sodium 136 mmol/L (137-145)
[2024-02-20 05:39] LABS: Blood Urea Nitrogen 111 mg/dL (9-20)
[2024-02-20 06:30] LABS: Glucose,Whole Blood 85 mg/dL (70-110)
[2024-02-20] MEDS ORDERED: LORazepam 1 MG/0.5 ML VIAL IV PRN (08:05)
--- NOTE | 2024-02-20 10:48 | P.PN ---
Subjective Progress Note Date: 02/20/24 Principal diagnosis: Respiratory failure. Pulmonary consult dated February 15, 2024. 68-year-old male who was seen in the emergency department, on February 13. He came into the emergency department, complaining of shortness of breath, and, was told by his family doctor, to be evaluated in the emergency department. The patient was found in Dr. Finley's office to have a heart rate of 140 bpm, and to be very short of breath. The patient's heart rate was irregular, and atrial fibrillat ion was suspected. In addition, the patient was found to likely be in congestive heart failure. The patient was initially reluctant to come to the hospital and be admitted, but he finally did. He has a history of previous bypass grafting in 2018, [facility], and a kidney transplant, at the [facility] in 2012. More recently, the patient's renal function has declined. We will check a procalcitonin level. His N-terminal proBNP was 5620. When we saw him, he was on 2 L of oxygen, and receiving Cardizem drip at 10 mg an hour. He appeared to be in moderate distress. He was coughing frequently, and was clearly short of breath. In addition to bypass grafting, and kidney transplantation, the patient has a history of hyperlipidemia, and hypertension, as well as gout. Also, the patient has a history of diabetes mellitus. He has no known allergies. The patient also apparently had a stroke at the age of 42. Current labs include white count 6.1, hemoglobin 9.7, hemat ocrit 32.6, and a normal platelet count. Coagulation studies were normal. Sodium 135, potassium 4.2, chlorides 106, CO2 20, anion gap 9, BUN 49, and creatinine 1.87. These electrolytes are consistent with a 9 anion gap metabolic acidosis. Glucose was 264. Lactic acid was 1. Troponin was 0.069. N-terminal proBNP was 5620. Procalcitonin level was elevated at 0.40. Chest x-ray showed a pattern consistent with either fluid overload/CHF, or possible pneumonia, left lung. Progress note dated February 16, 2024. 68-year-old male with a history of multiple medical problems, who was seen yesterday in the emergency department. He is seen again today in the emergency department, room 5. Unfortunately, the patient's respiratory status is declining, and, he was on high flow nasal cannula, and had to be converted to BiPAP. His BiPAP settings include 15/5, and 60%. The patient is receiving IV heparin via weight-based protocol, and a Cardizem drip at 15 mg an hour. Blood gases done on 50%, show pO2 of 66, pCO2 44, pH is 7.29. The patient will be given Lasix 60 mg IV push. I decided to transfer him to the intensive care unit, for further monitoring and management. His overall prognosis remains poor, and he may end up on mechanical ventilation. White count 8.8, hemoglobin 10.6, hematocrit 35, and platelet count 205,000. PTT is 46.5. Repeat blood gases show pO2 of 87, pCO2 of 45, pH is 7.28. These blood gases were done on his current BiPAP settings. For some reason, there is not a comprehensive metabolic profile today. Sputum is nondiagnostic at this time. Chest x-ray shows a worsening pattern, with patchy and confluent bilateral airspace disease, which could relate to effusions, fluid, pneumonia, etc. Progress note dated February 17, 2024. 68-year-old male who is seen today in room 253. He was initially seen in the emergency department. He came in with shortness of breath, and was noted to have atrial fibrillation with RVR, congestive heart failure, and possibly pn eumonia. The patient was placed on BiPAP. His BiPAP settings were 15/5, and 50%. He had a blood gas done yesterday showing a pO2 of 70, pCO2 44, and a pH of 7.34. The patient is currently on amiodarone at 0.5 mg/min, Cardizem at 15 mg an hour, and IV heparin via protocol. The patient is also getting saline at 10 cc an hour. Current labs include white count 8.7, hemoglobin 9.2, hematocrit 30.6, and platelet count 169,000. Sodium 135, potassium 4.3, chlorides 108, CO2 20, BUN 75, creatinine 2.69. Calcium is 9.5. Glucose is 90. Chest x-ray shows diffuse bilateral infiltrates, likely related to fluid overload, and/or pneumonia. The patient continues on Rocephin, and doxycycline. Progress note dated February 18, 2024. 68-year-old male seen in room 253. Yesterday, the patient had a transesophageal echocardiogram, followed by cardioversion. After the cardioversion, the patient was bradycardic, and received some atropine. Currently, he is on 3 L of oxygen, and getting saline at 10 cc an hour. He continues on IV heparin, and amiodarone at 0.5 mg/min. Both heparin and amiodarone will be turned off shortly. The patient did use BiPAP last night, with settings of 12/5, and 50%. Clinically, he looks much more comfortable. He is sitting up in bed. White count 8.6, hemoglobin 8.9, hematocrit 30, platelet count 197,000. PTT is 73.6. Sodium 135, potassium 4.6, chlorides 105, CO2 23, BUN 90, creatinine 3.5. Glucose is 110. Calcium is 9.5. Blood and sputum sampling is thus far negative. Chest x- ray shows a pattern of fluid overload, and is essentially unchanged from the prior x-ray. Progress note dated February 19, 2024. 68-year-old male seen in room 253. The patient had a pretty good night last night. I was here last night at about 9 PM, and the patient was short of breath, so we had the nurse place him back on BiPAP, with settings of 12/5 and 50%. He used that for about 5 hours according to the nurse. Currently, the patient is getting oxygen by nasal cannula at 3 L. He is getting saline at 10 cc an hour. He still fairly short of breath, and has a productive cough, and shortness of breath as well. Current labs include a white count of 7.9, hemoglobin 9, hematocrit 30.4, and a normal platelet count. Sodium was 136, potassium 4.5, chlorides 106, CO2 22, anion gap 8, BUN 102, and creatinine 3.53. Glucose is 147. Calcium is 9.4. Urine showed some red blood cells, white blood cells, and some rare bacteria. Blood and sputum sampling, thus far, are n egative. No chest x-ray today. Yesterday's chest x-ray did show some improvement. All in all, I think the patient is moving in a positive direction. Progress note dated February 20, 2024. 68-year-old male seen again in room 253. Currently, the patient is on 6 L by nasal cannula. No IV fluids. He did use BiPAP last night, with settings of 12/5, and 50%. The patient continues on Rocephin and doxycycline. Clinically, the patient feels a bit better. His chest x-ray still shows a pattern of fluid overload. He did develop some urinary retention, and a catheter was needed for relief of urine. Current labs include a white count 7.2, hemoglobin 8.8, hematocrit 29.5, and platelet count 202,000. Sodium 136, potassium 4.5, chlorides 106, CO2 24, BUN 111, and creatinine 3.37. Glucose is 85. Blood and sputum sampling is thus far negative. Objective - Vital Signs Vital signs: Vital Signs Temp 97.7 F 02/20/24 08:00 Pulse 70 02/20/24 09:08 Resp 16 02/20/24 09:00 BP 127/52 02/20/24 09:00 Pulse Ox 96 02/20/24 09:00 FiO2 50 02/20/24 04:00 Intake & Output 02/19/24 02/20/24 02/20/24 18:59 06:59 18:59 Intake Total 360 130 135 Output Total 200 945 65 Balance 160 -815 70 Weight 100.3 kg Intake: IV 120 130 10 Normal Saline 120 130 10 Intake, IV Titration 125 Amount Diltiazem 125 mg In 125 Sodium Chloride 0.9% 100 ml @ 5 MG/HR 5 mls/hr IV .[facility] Rx#:[id number] Oral 240 Output: Urine 200 945 65 Other: Voiding Method Indwelling Catheter Indwelling Catheter Indwelling Catheter - Exam No acute distress, much improved, currently on nasal O2, at 6 L. HEENT examination is grossly unremarkable. Mucous membranes are moist. No oral lesions. Neck supple. Full range of motion. No adenopathy thyromegaly or neck vein distention. Cardiovascular examination reveals an regular rhythm and rate. S1-S2 normal. No S3 or S4. No discernible murmur noted. Heart rate 56 bpm. Lungs reveal bilateral coarse rhonchi. Basilar crackles are noted. No wheezes. Breath sounds are equal bilaterally. Saturation is 96% on 6 L. Abdomen obese, but without tenderness. Extremities are intact. No signs or clubbing. There is 1+ edema. Skin is without rash or lesion. Neurologic examination is brief but nonfocal. - Labs CBC & Chem 7: 02/20/24 04:40 02/20/24 04:40 Labs: Abnormal Lab Results - Last 24 Hours (Table) 02/19/24 02/19/24 02/19/24 Range/Units 11:13 17:25 20:04 RBC (4.30-5.90) m/uL Hgb (13.0-17.5) gm/dL Hct (39.0-53.0) % MCHC (31.0-37.0) g/dL Sodium (137-145) mmol/L BUN (9-20) mg/dL Creatinine (0.66-1.25) mg/dL POC Glucose (mg/dL) 290 H 196 H 191 H (70-110) mg/dL 02/20/24 02/20/24 Range/Units 04:40 04:40 RBC 3.16 L (4.30-5.90) m/uL Hgb 8.8 L (13.0-17.5) gm/dL Hct 29.5 L (39.0-53.0) % MCHC 29.8 L (31.0-37.0) g/dL Sodium 136 L (137-145) mmol/L BUN 111 H* (9-20) mg/dL Creatinine 3.37 H (0.66-1.25) mg/dL POC Glucose (mg/dL) (70-110) mg/dL Microbiology - Last 24 Hours (Table) 02/15/24 22:57 Blood Culture - Preliminary Blood 02/16/24 00:10 Blood Culture - Preliminary Blood Assessment and Plan Assessment: Acute hypoxemic respiratory failure, likely multifactorial, in part related to atrial fibrillation/RVR, CHF/fluid overload, and possible pneumonia. S/P transesophageal echocardiogram, and cardioversion, February 17, 2024. History of kidney transplantation, 2013, at [facility]. Previous bypass grafting, 2019, [facility]. History of hypertension. History of hyperlipidemia. History of diabetes mellitus. History of gout. History of CVA, at age 42. Plan: Plan dated February 15, 2024. The patient is seen in the emergency department, room 5. He is currently on a Cardizem drip at 10 mg an hour, and O2 by nasal cannula at 2 L. The patient does look somewhat uncomfortable, and has a frequent cough. Labs, x-rays, and medications are reviewed. The patient is receiving azithromycin, and Rocephin for possible pneumonia. In addition, the patient is on the Cardizem drip at 10 mg an hour. The patient is also receiving IV heparin per protocol, and metoprolol. I will add some breathing treatments to the patient's regimen. Additional recommendations and suggestions are forthcoming. Prognosis is certainly guarded. Plan dated February 16, 2024. I was notified by the nurse in the emergency department, the patient's respiratory status had declined. I recommended BiPAP therapy, with settings of 15/5, and 60%. The patient was seen in the emergency department initially, and, the patient is transferred up to the intensive care unit, for further monitoring and management. The patient had a repeat blood gas, which showed stability, but, the patient's overall condition remains tenuous. He remains on IV heparin, and Cardizem drip at 15 mg an hour. I did speak to his sister, Makenzie Busby, and told her that the patient may end up on mechanical ventilation. Labs, x-rays, and medications are reviewed. Prognosis is very guarded. We will continue to follow make recommendations along the way. I am going to DC the patient's prednisone and start him on hydrocortisone, at stress doses. Plan dated February 17, 2024. Yesterday, the patient was taken off BiPAP, but only lasted a few minutes off of BiPAP, became very short of breath, and had reductions in his saturations. He has been on BiPAP through the night. We will attempt again to put him on nasal cannula, at 5 L/min. Labs, x-rays, and medications are reviewed. Clinically, the patient looks better. He is much more awake and alert. The patient will have a transesophageal echocardiogram, and cardioversion today. Additional recommendations and suggestions are forthcoming. Labs, x-rays, medications are reviewed. I did send a trough tacrolimus level to the lab. We will continue to follow patient, and make recommendations. In addition, I did put the patient on stress doses of corticosteroids, as she is typically on prednisone 5 mg a day, following his kidney transplant. Plan dated February 18, 2024. The patient had a transesophageal echocardiogram, and cardioversion yesterday. The patient is currently in sinus rhythm. The patient's IV heparin will be turned down. Amiodarone will be discontinued. Labs, x-rays, and medications are reviewed. The patient is still a little short of breath, and his chest x- ray is basically unchanged. We will continue to follow the patient in the [facility] unit. His renal function is a bit worse. His trough tacrolimus level is 3.7. Labs, x-rays, and medications are reviewed. We will continue to follow the patient, make recommendations along the way. Prognosis is guarded. Plan dated February 19, 2024. The patient seems to be doing a bit better. He still very short of breath, with a congested cough, and occasional phlegm production. The patient is using BiPAP, alternating with 3 L by nasal cannula. Last night when I was here, he was very short of breath, and we placed him back on BiPAP, which he used for about 5 hours. Labs, x-rays, and medications are reviewed. The patient's overall prognosis remains guarded. He continues on antibiotics in the form of Rocephin, and doxycycline. Cultures are thus far negative. The patient's hydrocortisone will be converted back to prednisone 5 mg a day. Additional recommendations and suggestions are forthcoming. Prognosis is guarded. Plan dated February 20, 2024. The patient's overall condition still remains critically ill, and tenuous. He does require the BiPAP at nighttime, for his respiratory status. Currently he is on 6 L of oxygen. The patient's urinary output has been poor, and he developed some urinary retention, and required catheter placement. His BiPAP settings of 12/5 and 50%. He continues on Rocephin and doxycycline. Cultures are thus far negative. Labs, x-rays, medications are reviewed. We will continue to follow the patient very closely. In my opinion, patient is to stay in the intensive care unit. Time with Patient: Greater than 30
--- NOTE | 2024-02-20 11:05 | XR ---
EXAM: XR chest 1V portable CLINICAL INDICATION:Male, 68 years old with history of CHF; [facility] COMPARISON: 02/19/2024 TECHNIQUE: Chest single view. FINDINGS: Monitor leads over the chest. No indwelling lines are seen. Multiple sternotomy wires, left atrial ap pendage occlusion device, prosthetic heart valve. Cardiomediastinal silhouette is stable. Heart is enlarged. Pulmonary vascular congestion and diffuse interstitial prominence suggesting edema superimposed on ch ronic changes. Possible small pleural effusions. Similar appearance of bandlike consolidation in the right midlung z one. No visible pneumothorax. No acute bony abnormality. IMPRESSION: 1. Persistent right lower lobe airspace opacity may represent infectious process. 2. Cardiomegaly with congestive heart failure changes, correlate with serum BNP.
--- NOTE | 2024-02-20 11:08 | P.PN ---
Subjective Progress Note Date: 02/20/24 HISTORY OF PRESENT ILLNESS: 68-year-old office patient with active medical history of atherosclerotic heart disease post CABG, end-stage renal disease post renal transplant at [facility] over 10 years ago, chronic stage IIIb kidney disease, hypertension, hyperlipidemia, chronic neuropathy, obesity, obstructive sleep apnea, mild peripheral arterial disease, who was back at [facility] few months ago for worsening kidney function was hospitalized for few days. He was not in the office on 02/14/2024 with complaining of severe dyspnea and shortness of b reath with cough productive phlegm not been able to lay down flat mild fluid overload with worsening PND and orthopnea was having significant tachypnea and tachycardia with hypoxia. Pulse ox was less than 90 percentile looks the same time and failure but might have double pneumonia. Patient was sent to the emergency room at [facility] where was seen and evaluated Surprisingly h is hemoglobin came back at 10.1 with white blood cell 6.0 creatinine 1.87 close to the last creatinine he has before leaving [facility] a few months ago his blood sugar was elevated at 264 with mildly elevated troponin 0.069 BNP 8 6620. His EKG from the office and from the emergency department showed atrial flutter with pulse rate running at 142 bpm quite irregular. Chest x-ray shows l eft lower lung airspace opacification correlate with pneumonia and mild congestive heart failure as well. Patient was started on IV antibiotics with ceftriaxone 2 g Cardizem drip was started to bring his pulse rate down not helpful or successful at the time. Consult cardiology and pulmonary patient admitted to the hospital. 02/16/2024: The patient remained extremely sick require to be move on to BiPAP, was transferred to the intensive care unit still tachycardic with pulse rate around 140 bpm close schedule initially to go for cardioversion after transesophageal echocardiogram but with his respiratory failure on BiPAP not able to do this today patient is not stable continue current management for now patient manage higher dose of Cardizem was not started on amiodarone yet. Still have significant pulmonary edema being on diuretics 4. Much worsening kidney function compared to before and BNP still elevated. Continue to be treated for left lower lobe pneumonia there is transthoracic echocardiogram showed severely increased left ventricular wall thickening with left ventricular ejection fraction of 50-55 percentile with moderate mitral regurgitation who has b ioprosthetic aortic valve not well-visualized with his valve area is only 1 cm.. Please continue on azithromycin and Rocephin for possible pneumonia left-sided: Heparin drip and Cardizem drip at this point does not require any vasopressor. Will continue to stabilize patient hopefully pulse rate will drop down to be more stable to be cardioversion eventually will continue BiPAP continue ICU management. 02/17/2024: Patient is off BiPAP today pulse rate is 120s still in a flutter, plan with cardiology to do transesophageal echocardiogram and if there is no thrombus is given the going for cardioversion today. Still on IV antibiotics, still on high flow oxygen at this point was started on amiodarone 5 to bring his pulse rate down little bit. His kidney function slightly was down from before with creatinine up to 2.63. Continue to make good urine output so far. My fear with his transesophageal echocardiogram or any testing that he has an extremely severe spinal stenosis and problem with his cervical spine second third and fourth we have just to be careful tilting his neck backwards specially required intubation. Patient shortness of breath has been much better and is not having any chest pain today. Remain in ICU require more help still seen nephrology inside intensive care pulmonary and cardiology. 02/18/2024: He had cardioversion yesterday successfully after transesophageal echocardiogram and seems still to be running in the 70s, was on amiodarone drip which was stopped today because of declining kidney function. He is GFR down significantly with bun up to 19 creatinine 3.50. His shortness of breath had significantly decreased. Patient is still making good urine output does not need any hemodialysis at this point. He is on 3 L of O2 able to talk comfortably today hemoglobin is down to 8.9 electrolytes are better with exception of creatinine. Patient remain in the ICU for the next 24 hours. Treatment for his pneumonia still with IV and hide currently seems to be successful patient is doing well. 02/19/2024: Patient has 1 more shortness of breath today he is using BiPAP, slightly worsening kidney function with bun 102 creatinine 3.53, mildly elevated blood sugar, hemoglobin is down to 9.0 platelet count 200. Continue empiric IV antibiotics remain on Rocephin 2 g IV daily still on doxycycline as well. Amiodarone was decreased to 200 mg daily with pulse rates under control pulse still irregular since cardioversion. Despite worsening kidney function patient is still making good urine output. Blood sugar has been slightly better. No further chest pain or angina at this point, metoprolol was reduced to 25 mg twice a day still on Eliquis 2.5 mg twice a day as well. His blood pressure is slightly better. 02/20/2024: Still in the ICU hide use of BiPAP through the night felt slightly b vanda, his A-fib still under control on metoprolol down to 25 mg twice a day still on amiodarone 200 mg daily, blood pressure was elevated amlodipine was added 5 mg daily. He is blood work today with his creatinine down to 3.37 and bun at 111 hemoglobin down to 8.8 does not require blood transfusion no thrombocytopenia. Blood pressure is well-controlled pulse oximetry 93 percentile and 6 L, he spent the night and body hanger on BiPAP with 50% oxygen. Patient is awake alert interactive not symptomatic today still having slight shortness of breath dyspnea no chest pain. His pneumonia still treated with Rocephin and doxycycline culture was completely negative. Chest x-ray repeated today still showing interstitial finding consistent with more heart failure and the left lobe still have significant infiltrate. REVIEW OF SYSTEMS: CONSTITUTIONAL: Morbid obesity and mild respiratory distress. EYES: No icterus sclerae, no conjunctivitis. EARS, NOSE, MOUTH, THROAT, and FACE: No sore throat, lymphadenopathy, carotid bruits or deformity. RESPIRATORY: Positive shortness of breath cough or wheezes. CARDIOVASCULAR: Positive PND orthopnea palpitation. GASTROINTESTINAL: No Abd pain, Nausea or vomiting, no Diarrhea or constipation, No GI Bleed, no distention or masses. GENITOURINARY: No polyuria nocturia without any hematuria. INTEGUMENT/BREAST: Negative for any muscular injury with mild osteoarthritis.. HEMATOLOGIC/LYMPHATIC: Chronic anemia with no bleeding. MUSCULOSKELTAL: Negative for Myalgia or arthralgia. NEURLOGICAL: No LOC, Sz or syncope, blurred vision dizziness or abnormality.. BEHAVIORAL/PSYCH: Negative. ENDOCRINE: Negative. PHYSICAL EXAMINATION: General Appearance: Overweight in mild respiratory distress. Neck HEENT: Supple, no lymphadenopathy, no thyroid enlargement, no carotid bruits. Lungs: Decreased breath sound bilaterally especially the left side with fine rhonchi positive crackles in the bases positive mild inspiratory expiratory wheezes. Chest Wall: Decreased expansion with deep inspiration no tenderness and no deformity was found on exam, no costochondral pain or discomfort. Heart: Irregular rate and rhythm, S1, S2 positive S3 positive PVCs. Back: Symmetric, no curvature, ROM normal, no CVA tenderness. Abdomen: Soft, non-tender, bowel sounds active all four quadrants, no masses, no organomegaly. Extremities: Extremities normal, atraumatic, no cyanosis positive edema. Pulses: 2+ and symmetric. Skin: Skin color, texture, tugor normal, no rashes or lesions. Neurologic: Alert oriented x3 cranial nerves II through XII intact, no motor deficit, no abnormal balance or gait. ASSESSMENT AND PLAN: _Acute respiratory failure: Combination of congestive heart failure along with arrhythmia and left lower lobe pneumonia. Still in the ICU still on BiPAP for the night higher flow oxygen for the day. _Left lower lobe pneumonia: Remain on Rocephin and doxycycline seem to respond well to it. Infiltrate on x-ray is not a whole lot better. _A flutter with rapid ventricular response: Pulse rate better mostly irregular slightly irregular sometimes remain on amiodarone and metoprolol. Still on Eliquis as well. Pulse rate is much better. _Congestive heart failure acute with mild exacerbation mostly systolic dysfunction the patient still acting wet with worsening heart failure with the advanced kidney failure at this point patient is not diuresing as well as expected end up having Cintron catheter because of urinary tension watching his urine output will be better. _Urinary retention: Cintron catheter was replaced and patient was withholding quite good urine is irritated with the catheter but feeling slightly better with increased urine output. _Advanced kidney failure mostly stage IV: He is acute kidney injury with chronic kidney failure is slightly better today he still making urine does not require any dialysis continue to watch his urine output carefully continue to lower any nephrotoxic agent. Sadly patient still requires IV diuretics which would make probably the kidney function worse but he still quite with fluid overload require more help. _Valvular heart disease: With severe mitral regurgitation and bio static aortic valve not well-visualized but size only 1.0 cm. Continue medical management for now need different type of echo for more active seen on the aortic valve. _Type 2 diabetes not well-controlled noncompliance to medication has been mostly on Lantus 70 units daily along with NovoLog 35 units AC meals plus sliding sc ales coverage. Continue to adjust insulin dose to keep his blood sugar under 150. _End-stage renal disease posttransplant remain on antirejection drugs will consult nephrology continue mycophenolate acid along with Prograf and still on prednisone 5 mg daily. Still making urine output does not require dialysis so far. _Stage IIIb chronic kidney disease posttransplant continue hydration avoid ne phrotoxic agent type II preserve any kidney function. She does not require dialysis yet. _Hypertension:_Has been on hydralazine 50 mg twice a day, amlodipine 10 mg daily, metoprolol titrate 50 mg 3 times a day. _Hyperlipidemia: Has been on Lipitor 40 mg a day currently medication. _BPH watch for any urinary retention. CODE STATUS: Full code. Prognosis: Fair. Discussion: Continue oxygenation, diuretic, continue to watch his urine output patient remain in the ICU at this point might be able to transfer out today or tomorrow. Objective - Vital Signs Vital signs: Vital Signs Temp 97 F L 02/20/24 04:00 Pulse 63 02/20/24 07:00 Resp 14 02/20/24 07:00 BP 117/60 02/20/24 07:00 Pulse Ox 93 L 02/20/24 07:00 FiO2 50 02/20/24 04:00 Intake & Output 02/19/24 02/20/24 02/20/24 18:59 06:59 18:59 Intake Total 360 130 Output Total 200 945 Balance 160 -815 Weight 100.3 kg Intake: IV 120 130 Normal Saline 120 130 Oral 240 Output: Urine 200 945 Other: Voiding Method Indwelling Catheter Indwelling Catheter - Labs CBC & Chem 7: 02/20/24 04:40 02/20/24 04:40 Labs: Abnormal Lab Results - Last 24 Hours (Table) 02/19/24 02/19/24 02/19/24 Range/Units 11:13 17:25 20:04 RBC (4.30-5.90) m/uL Hgb (13.0-17.5) gm/dL Hct (39.0-53.0) % MCHC (31.0-37.0) g/dL Sodium (137-145) mmol/L BUN (9-20) mg/dL Creatinine (0.66-1.25) mg/dL POC Glucose (mg/dL) 290 H 196 H 191 H (70-110) mg/dL 02/20/24 02/20/24 Range/Units 04:40 04:40 RBC 3.16 L (4.30-5.90) m/uL Hgb 8.8 L (13.0-17.5) gm/dL Hct 29.5 L (39.0-53.0) % MCHC 29.8 L (31.0-37.0) g/dL Sodium 136 L (137-145) mmol/L BUN 111 H* (9-20) mg/dL Creatinine 3.37 H (0.66-1.25) mg/dL POC Glucose (mg/dL) (70-110) mg/dL Microbiology - Last 24 Hours (Table) 02/15/24 22:57 Blood Culture - Preliminary Blood 02/16/24 00:10 Blood Culture - Preliminary Blood
[2024-02-20 11:28] LABS: Glucose,Whole Blood 163 mg/dL (70-110)
--- NOTE | 2024-02-20 12:01 | P.PN ---
Subjective Patient is seen for follow-up for acute kidney injury and chronic kidney disease. off of BiPAP today Urine output 1145 mL for 24 hours. Serum creatinine decreased to 3.3 mg/dL off of Lasix repeat tacrolimus level was 4.7 Objective - Vital Signs Vital signs: Vital Signs Temp 97.7 F 02/20/24 08:00 Pulse 57 L 02/20/24 11:00 Resp 13 02/20/24 11:00 BP 134/59 02/20/24 11:00 Pulse Ox 100 02/20/24 11:00 FiO2 50 02/20/24 04:00 Intake & Output 02/19/24 02/20/24 02/20/24 18:59 06:59 18:59 Intake Total 360 130 145 Output Total 200 945 110 Balance 160 -815 35 Weight 100.3 kg Intake: IV 120 130 20 Normal Saline 120 130 20 Intake, IV Titration 125 Amount Diltiazem 125 mg In 125 Sodium Chloride 0.9% 100 ml @ 5 MG/HR 5 mls/hr IV .Q24H [facility] Rx#:[id number] Oral 240 Output: Urine 200 945 110 Other: Voiding Method Indwelling Catheter Indwelling Catheter Indwelling Catheter - Exam patient is awake, comfortable. No acute distress Examination of the heart S1 and S2 Examination of the lungs bilateral breath sounds are heard with decreased breath sounds at the bases Abdomen is soft obese nontender Examination of lower extremities shows 1+ edema BULB GROWER exam grossly intact - Labs CBC & Chem 7: 02/20/24 04:40 02/20/24 04:40 Labs: Abnormal Lab Results - Last 24 Hours (Table) 02/19/24 02/19/24 02/20/24 Range/Units 17:25 20:04 04:40 RBC 3.16 L (4.30-5.90) m/uL Hgb 8.8 L (13.0-17.5) gm/dL Hct 29.5 L (39.0-53.0) % MCHC 29.8 L (31.0-37.0) g/dL Sodium (137-145) mmol/L BUN (9-20) mg/dL Creatinine (0.66-1.25) mg/dL POC Glucose (mg/dL) 196 H 191 H (70-110) mg/dL 02/20/24 02/20/24 Range/Units 04:40 11:26 RBC (4.30-5.90) m/uL Hgb (13.0-17.5) gm/dL Hct (39.0-53.0) % MCHC (31.0-37.0) g/dL Sodium 136 L (137-145) mmol/L BUN 111 H* (9-20) mg/dL Creatinine 3.37 H (0.66-1.25) mg/dL POC Glucose (mg/dL) 163 H (70-110) mg/dL Microbiology - Last 24 Hours (Table) 02/15/24 22:57 Blood Culture - Preliminary Blood 02/16/24 00:10 Blood Culture - Preliminary Blood Assessment and Plan Assessment: 1. 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 2. Recent episode of acute kidney injury on 12/02/2023 with serum creatinine at 3.47 about 4 weeks ago in [place]. 3. Acute kidney injury, cardiorenal and associated with hemodynamic instability from A-fib/RVR. Nonoliguric ATN. 4. Acute hypoxic respiratory failure secondary to pneumonia 5. Status post donor renal transplant in 2012 at [facility] maintained on tacrolimus prednisone and Myfortic. Tacrolimus level 3.7 on 02/16/2024. This will be repeated. 6. Anemia of chronic disease rule out iron deficiency 7. A. fib with RVR, status post cardioversion 8. Metabolic acidosis associated with acute kidney injury and calcineurin inhibitors 9. Mild hyperkalemia associated with metabolic acidosis and calcineurin inhibitor use 10. Volume overload Plan: continue with empiric antibiotics. monitor volume status closely as Lasix is currently on hold. continue oral sodium bicarb Continue with current immunosuppressive medications. Repeat labs in a.m.
[2024-02-20] MEDS: INSULIN ASPART (NovoLOG) 100 UNIT/ML VIAL SQ SCH (14:01)
[2024-02-20 16:09] LABS: Glucose,Whole Blood 221 mg/dL (70-110)
[2024-02-20 17:47] LABS: Glucose,Whole Blood 219 mg/dL (70-110)
[2024-02-20 19:47] LABS: Glucose,Whole Blood 251 mg/dL (70-110)
[2024-02-21 03:01] LABS: Glucose,Whole Blood 263 mg/dL (70-110)
[2024-02-21 06:47] LABS: Glucose,Whole Blood 222 mg/dL (70-110)
[2024-02-21] MEDS: INSULIN DETEMIR (LEVEMIR) 100 UNIT/ML SYR SQ SCH ×2 (06:47→21:05)
[2024-02-21 07:20] LABS: African American GFR (CKD) 24 (>60 ml/min/1.73 sqM); Anion Gap 7 mmol/L; Calcium 9.3 mg/dL (8.4-10.2); Carbon Dioxide 21 mmol/L (22-30); Chloride 108 mmol/L (98-107); Glucose 210 mg/dL (74-99); Non-African American GFR(CKD) 20 (>60 ml/min/1.73 sqM); Sodium 136 mmol/L (137-145)
--- NOTE | 2024-02-21 07:36 | XR ---
EXAMINATION TYPE: XR chest 1V portable DATE OF EXAM: 02/21/2024 COMPARISON: 02/20/2024 INDICATION: CHF exacerbation TECHNIQUE: Single frontal view of the chest is obtained. FINDINGS: The heart size is enlarged. The pulmonary vasculature is prominent. There is opacification within the mid right lung. This could be fluid within the minor fissure. Atele ctasis and pneumonia should be considered. Findings are stable IMPRESSION: 1. Stable appearance of findings suggestive for congestive heart failure. 2. Right mid lung opacification stable from comparison. Fluid within the minor fissure, atelectasis, pneumonia should be considered. Continued follow-up is recommended.
--- NOTE | 2024-02-21 07:51 | P.PN ---
Subjective Progress Note Date: 02/21/24 HISTORY OF PRESENT ILLNESS: 68-year-old office patient with active medical history of atherosclerotic heart disease post CABG, end-stage renal disease post renal transplant at [facility] over 10 years ago, chronic stage IIIb kidney disease, hypertension, hyperlipidemia, chronic neuropathy, obesity, obstructive sleep apnea, mild peripheral arterial disease, who was back at [facility] few months ago for worsening kidney function was hospitalized for few days. He was not in the office on 02/14/2024 with complaining of severe dyspnea and shortness of b reath with cough productive phlegm not been able to lay down flat mild fluid overload with worsening PND and orthopnea was having significant tachypnea and tachycardia with hypoxia. Pulse ox was less than 90 percentile looks the same time and failure but might have double pneumonia. Patient was sent to the emergency room at [facility] where was seen and evaluated Surprisingly h is hemoglobin came back at 10.1 with white blood cell 6.0 creatinine 1.87 close to the last creatinine he has before leaving [facility] a few months ago his blood sugar was elevated at 264 with mildly elevated troponin 0.069 BNP 8 6620. His EKG from the office and from the emergency department showed atrial flutter with pulse rate running at 142 bpm quite irregular. Chest x-ray shows l eft lower lung airspace opacification correlate with pneumonia and mild congestive heart failure as well. Patient was started on IV antibiotics with ceftriaxone 2 g Cardizem drip was started to bring his pulse rate down not helpful or successful at the time. Consult cardiology and pulmonary patient admitted to the hospital. 02/16/2024: The patient remained extremely sick require to be move on to BiPAP, was transferred to the intensive care unit still tachycardic with pulse rate around 140 bpm close schedule initially to go for cardioversion after transesophageal echocardiogram but with his respiratory failure on BiPAP not able to do this today patient is not stable continue current management for now patient manage higher dose of Cardizem was not started on amiodarone yet. Still have significant pulmonary edema being on diuretics 4. Much worsening kidney function compared to before and BNP still elevated. Continue to be treated for left lower lobe pneumonia there is transthoracic echocardiogram showed severely increased left ventricular wall thickening with left ventricular ejection fraction of 50-55 percentile with moderate mitral regurgitation who has b ioprosthetic aortic valve not well-visualized with his valve area is only 1 cm.. Please continue on azithromycin and Rocephin for possible pneumonia left-sided: Heparin drip and Cardizem drip at this point does not require any vasopressor. Will continue to stabilize patient hopefully pulse rate will drop down to be more stable to be cardioversion eventually will continue BiPAP continue ICU management. 02/17/2024: Patient is off BiPAP today pulse rate is 120s still in a flutter, plan with cardiology to do transesophageal echocardiogram and if there is no thrombus is given the going for cardioversion today. Still on IV antibiotics, still on high flow oxygen at this point was started on amiodarone 5 to bring his pulse rate down little bit. His kidney function slightly was down from before with creatinine up to 2.63. Continue to make good urine output so far. My fear with his transesophageal echocardiogram or any testing that he has an extremely severe spinal stenosis and problem with his cervical spine second third and fourth we have just to be careful tilting his neck backwards specially required intubation. Patient shortness of breath has been much better and is not having any chest pain today. Remain in ICU require more help still seen nephrology inside intensive care pulmonary and cardiology. 02/18/2024: He had cardioversion yesterday successfully after transesophageal echocardiogram and seems still to be running in the 70s, was on amiodarone drip which was stopped today because of declining kidney function. He is GFR down significantly with bun up to 19 creatinine 3.50. His shortness of breath had significantly decreased. Patient is still making good urine output does not need any hemodialysis at this point. He is on 3 L of O2 able to talk comfortably today hemoglobin is down to 8.9 electrolytes are better with exception of creatinine. Patient remain in the ICU for the next 24 hours. Treatment for his pneumonia still with IV and hide currently seems to be successful patient is doing well. 02/19/2024: Patient has 1 more shortness of breath today he is using BiPAP, slightly worsening kidney function with bun 102 creatinine 3.53, mildly elevated blood sugar, hemoglobin is down to 9.0 platelet count 200. Continue empiric IV antibiotics remain on Rocephin 2 g IV daily still on doxycycline as well. Amiodarone was decreased to 200 mg daily with pulse rates under control pulse still irregular since cardioversion. Despite worsening kidney function patient is still making good urine output. Blood sugar has been slightly better. No further chest pain or angina at this point, metoprolol was reduced to 25 mg twice a day still on Eliquis 2.5 mg twice a day as well. His blood pressure is slightly better. 02/20/2024: Still in the ICU hide use of BiPAP through the night felt slightly b vanda, his A-fib still under control on metoprolol down to 25 mg twice a day still on amiodarone 200 mg daily, blood pressure was elevated amlodipine was added 5 mg daily. He is blood work today with his creatinine down to 3.37 and bun at 111 hemoglobin down to 8.8 does not require blood transfusion no thrombocytopenia. Blood pressure is well-controlled pulse oximetry 93 percentile and 6 L, he spent the night and helper coordinator on BiPAP with 50% oxygen. Patient is awake alert interactive not symptomatic today still having slight shortness of breath dyspnea no chest pain. His pneumonia still treated with Rocephin and doxycycline culture was completely negative. Chest x-ray repeated today still showing interstitial finding consistent with more heart failure and the left lobe still have significant infiltrate. 02/21/2024: Patient remained on BiPAP all night, still out of breath, kidney f unction is still down significantly. A-fib is much better with pulse rates in the 60s and 70s but is still on amiodarone 200 mg a day orally hoping to get him off amiodarone completely one of the nephrotoxic agent he is on specially if cardiology believe can maintain patient on beta-amy to keep a pulse rate under control. His infection and infiltrate has improved some continue on antibiotics. Urine output still up as well the patient is not to any degree close to dialysis at this point. Still on his antirejection drug for his transplant. Patient still sick I believe he needs to stay in the ICU another day. REVIEW OF SYSTEMS: CONSTITUTIONAL: Morbid obesity and mild respiratory distress. EYES: No icterus sclerae, no conjunctivitis. EARS, NOSE, MOUTH, THROAT, and FACE: No sore throat, lymphadenopathy, carotid bruits or deformity. RESPIRATORY: Positive shortness of breath cough or wheezes. CARDIOVASCULAR: Positive PND orthopnea palpitation. GASTROINTESTINAL: No Abd pain, Nausea or vomiting, no Diarrhea or constipation, No GI Bleed, no distention or masses. GENITOURINARY: No polyuria nocturia without any hematuria. INTEGUMENT/BREAST: Negative for any muscular injury with mild osteoarthritis.. HEMATOLOGIC/LYMPHATIC: Chronic anemia with no bleeding. MUSCULOSKELTAL: Negative for Myalgia or arthralgia. NEURLOGICAL: No LOC, Sz or syncope, blurred vision dizziness or abnormality.. BEHAVIORAL/PSYCH: Negative. ENDOCRINE: Negative. PHYSICAL EXAMINATION: General Appearance: Overweight in mild respiratory distress. Neck HEENT: Supple, no lymphadenopathy, no thyroid enlargement, no carotid bruits. Lungs: Decreased breath sound bilaterally especially the left side with fine rhonchi positive crackles in the bases positive mild inspiratory expiratory wheezes. Chest Wall: Decreased expansion with deep inspiration no tenderness and no deformity was found on exam, no costochondral pain or discomfort. Heart: Irregular rate and rhythm, S1, S2 positive S3 positive PVCs. Back: Symmetric, no curvature, ROM normal, no CVA tenderness. Abdomen: Soft, non-tender, bowel sounds active all four quadrants, no masses, no organomegaly. Extremities: Extremities normal, atraumatic, no cyanosis positive edema. Pulses: 2+ and symmetric. Skin: Skin color, texture, tugor normal, no rashes or lesions. Neurologic: Alert oriented x3 cranial nerves II through XII intact, no motor deficit, no abnormal balance or gait. ASSESSMENT AND PLAN: _Acute respiratory failure: Combination of congestive heart failure along with arrhythmia and left lower lobe pneumonia. Still BiPAP dependent for the night and higher flow oxygen for the day. _Left lower lobe pneumonia: Remain on Rocephin and doxycycline seem to respond well to it. Infiltrate on x-ray is not a whole lot better. _A flutter with rapid ventricular response: Pulse rate is much better so far on beta-amy and amiodarone hope to get him off amiodarone if possible. _Congestive heart failure acute with mild exacerbation mostly systolic dysfun ction the patient still acting wet with worsening heart failure with the advanced kidney failure at this point patient is not diuresing as well as expected end up having Cintron catheter because of urinary tension watching his urine output will be better. _Urinary retention: Cintron catheter was replaced and patient was withholding quite good urine is irritated with the catheter but feeling slightly better with increased urine output. _Advanced kidney failure mostly stage IV: Still does not require dialysis pending BUN/creatinine this morning. _Valvular heart disease: With severe mitral regurgitation and bio static aortic valve not well-visualized but size only 1.0 cm. Continue medical management for now need different type of echo for more active seen on the aortic valve. _Type 2 diabetes with blood sugars still up will go higher on his long-acting to 35 units twice a day continue short acting insulin 4 times a day. _End-stage renal disease posttransplant remain on antirejection drugs will consult nephrology continue mycophenolate acid along with Prograf and still on prednisone 5 mg daily. Still making urine output does not require dialysis so far. _Stage IIIb chronic kidney disease posttransplant continue hydration avoid nephrotoxic agent type II preserve any kidney function. She does not require dialysis yet. _Hypertension:_Has been on hydralazine 50 mg twice a day, amlodipine 10 mg daily, metoprolol titrate 50 mg 3 times a day. _Hyperlipidemia: Has been on Lipitor 40 mg a day currently medication. _BPH watch for any urinary retention. CODE STATUS: Full code. Prognosis: Poor Discussion: Continue current management patient still have extremely high comorbidity for declining more, might require dialysis, worsening shortness of breath might require oxygen long-term as for his infection and A-fib are slightly better controlled. Objective - Vital Signs Vital signs: Vital Signs Temp 97 F L 02/21/24 04:00 Pulse 56 L 02/21/24 05:00 Resp 11 L 02/21/24 05:00 BP 139/57 02/21/24 05:00 Pulse Ox 98 02/21/24 05:00 FiO2 50 02/21/24 04:00 Intake & Output 02/20/24 02/20/24 02/21/24 06:59 18:59 06:59 Intake Total 130 135 190 Output Total 945 450 515 Balance -815 -315 -325 Weight 100.3 kg Intake: IV 130 10 190 Normal Saline 130 10 90 cefTRIAXone 2 gm In 100 Sodium Chloride 0.9% 50 ml @ 100 mls/hr IVPB DAILY@2100 THU Rx#: [id number] Intake, IV Titration 125 Amount Diltiazem 125 mg In 125 Sodium Chloride 0.9% 100 ml @ 5 MG/HR 5 mls/hr IV .Q24H THU Rx#:[id number] Output: Urine 945 450 515 Other: Voiding Method Indwelling Catheter Indwelling Catheter Indwelling Catheter - Labs CBC & Chem 7: 02/20/24 04:40 02/20/24 04:40 Labs: Abnormal Lab Results - Last 24 Hours (Table) 02/20/24 02/20/24 02/20/24 Range/Units 04:40 11:26 16:08 Sodium 136 L (137-145) mmol/L BUN 111 H* (9-20) mg/dL Creatinine 3.37 H (0.66-1.25) mg/dL POC Glucose (mg/dL) 163 H 221 H (70-110) mg/dL 02/20/24 02/20/24 02/21/24 Range/Units 17:45 19:45 03:00 Sodium (137-145) mmol/L BUN (9-20) mg/dL Creatinine (0.66-1.25) mg/dL POC Glucose (mg/dL) 219 H 251 H 263 H (70-110) mg/dL
[2024-02-21 07:57] LABS: Blood Urea Nitrogen 119 mg/dL (9-20); Potassium 5.4 mmol/L (3.5-5.1)
--- NOTE | 2024-02-21 08:37 | P.PN ---
Subjective Progress Note Date: 02/21/24 Principal diagnosis: Paroxysmal atrial fibrillation The patient is a pleasant 68-year-old gentleman with coronary artery disease and paroxysmal atrial fibrillation and valvular heart disease with preserved LV systolic function as well as hypertension and dyslipidemia and chronic kidney disease was admitted to the hospital with a pneumonia and he was in A-fib with RVR and subsequently he underwent cardioversion February 21, 2024 The patient was seen and evaluated this morning. He continues to be hypoxic on oxygen. He remains in sinus mechanism with sinus bradycardia with amlodipine was added to his current medical regimen yesterday for better blood pressure control. He is on amiodarone at 200 mg p.o. daily which I am going to taper him down to 100 mg daily and eventually stop the amiodarone completely. He is on oral anticoagulation as well. The chest x-ray showed finding consistent with heart failure but clinically he is not in heart failure. His chest is clear and no edema was noted in the lower extremities. His creatinine remains elevated as well. Assessment Bilateral pneumonia Paroxysmal atrial fibrillation. Currently the patient is in sinus mechanism Renal failure Coronary artery disease Valvular heart disease Preserved LV systolic function Plan Taper down the dose of amiodarone and eventually stop the amiodarone completely Continue monitor the blood pressure and adjust the medications accordingly Monitor the kidney function and electrolytes Continue oral anticoagulation The patient is not in overt heart failure at this point Objective - Vital Signs Vital signs: Vital Signs Temp 97 F L 02/21/24 04:00 Pulse 55 L 02/21/24 07:00 Resp 12 02/21/24 07:00 BP 152/63 02/21/24 07:00 Pulse Ox 97 02/21/24 07:00 FiO2 50 02/21/24 04:00 Intake & Output 02/20/24 02/21/24 02/21/24 18:59 06:59 18:59 Intake Total 135 220 Output Total 450 630 Balance -315 -410 Weight 99.7 kg Intake: IV 10 220 Normal Saline 10 120 cefTRIAXone 2 gm In 100 Sodium Chloride 0.9% 50 ml @ 100 mls/hr IVPB DAILY@2100 THU Rx#: [id number] Intake, IV Titration 125 Amount Diltiazem 125 mg In 125 Sodium Chloride 0.9% 100 ml @ 5 MG/HR 5 mls/hr IV .Q24H THU Rx#:[id number] Output: Urine 450 630 Other: Voiding Method Indwelling Catheter Indwelling Catheter - Labs CBC & Chem 7: 02/20/24 04:40 02/21/24 05:47 Labs: Abnormal Lab Results - Last 24 Hours (Table) 02/20/24 02/20/24 02/20/24 Range/Units 11:26 16:08 17:45 Sodium (137-145) mmol/L Potassium (3.5-5.1) mmol/L Chloride (98-107) mmol/L Carbon Dioxide (22-30) mmol/L BUN (9-20) mg/dL Creatinine (0.66-1.25) mg/dL Glucose (74-99) mg/dL POC Glucose (mg/dL) 163 H 221 H 219 H (70-110) mg/dL 02/20/24 02/21/24 02/21/24 Range/Units 19:45 03:00 05:47 Sodium 136 L (137-145) mmol/L Potassium 5.4 H (3.5-5.1) mmol/L Chloride 108 H (98-107) mmol/L Carbon Dioxide 21 L (22-30) mmol/L BUN 119 H* (9-20) mg/dL Creatinine 3.01 H (0.66-1.25) mg/dL Glucose 210 H (74-99) mg/dL POC Glucose (mg/dL) 251 H 263 H (70-110) mg/dL 02/21/24 Range/Units 06:46 Sodium (137-145) mmol/L Potassium (3.5-5.1) mmol/L Chloride (98-107) mmol/L Carbon Dioxide (22-30) mmol/L BUN (9-20) mg/dL Creatinine (0.66-1.25) mg/dL Glucose (74-99) mg/dL POC Glucose (mg/dL) 222 H (70-110) mg/dL
--- NOTE | 2024-02-21 09:48 | P.PN ---
Subjective Patient is seen in follow-up for acute kidney injury on chronic kidney disease and renal transplant management. Renal function better. Nonoliguric. Denies chest pain or shortness of breath. Oral intake fair. Vital signs are stable. General: No acute distress. HEENT: Head exam is unremarkable. On nasal cannula. LUNGS: No audible rhonchi or wheezes. HEART: Rate and Rhythm are regular. ABDOMEN: Nontender. EXTREMITITES: Trace edema. Objective - Vital Signs Vital signs: Vital Signs Temp 97 F L 02/21/24 04:00 Pulse 60 02/21/24 08:46 Resp 12 02/21/24 07:00 BP 152/63 02/21/24 07:00 Pulse Ox 96 02/21/24 08:35 FiO2 50 02/21/24 04:00 Intake & Output 02/20/24 02/21/24 02/21/24 18:59 06:59 18:59 Intake Total 135 220 Output Total 450 630 Balance -315 -410 Weight 99.7 kg Intake: IV 10 220 Normal Saline 10 120 cefTRIAXone 2 gm In 100 Sodium Chloride 0.9% 50 ml @ 100 mls/hr IVPB DAILY@2100 THU Rx#: [id number] Intake, IV Titration 125 Amount Diltiazem 125 mg In 125 Sodium Chloride 0.9% 100 ml @ 5 MG/HR 5 mls/hr IV .Q24H THU Rx#:[id number] Output: Urine 450 630 Other: Voiding Method Indwelling Catheter Indwelling Catheter - Labs CBC & Chem 7: 02/20/24 04:40 02/21/24 05:47 Labs: Abnormal Lab Results - Last 24 Hours (Table) 02/20/24 02/20/24 02/20/24 Range/Units 11:26 16:08 17:45 Sodium (137-145) mmol/L Potassium (3.5-5.1) mmol/L Chloride (98-107) mmol/L Carbon Dioxide (22-30) mmol/L BUN (9-20) mg/dL Creatinine (0.66-1.25) mg/dL Glucose (74-99) mg/dL POC Glucose (mg/dL) 163 H 221 H 219 H (70-110) mg/dL 02/20/24 02/21/24 02/21/24 Range/Units 19:45 03:00 05:47 Sodium 136 L (137-145) mmol/L Potassium 5.4 H (3.5-5.1) mmol/L Chloride 108 H (98-107) mmol/L Carbon Dioxide 21 L (22-30) mmol/L BUN 119 H* (9-20) mg/dL Creatinine 3.01 H (0.66-1.25) mg/dL Glucose 210 H (74-99) mg/dL POC Glucose (mg/dL) 251 H 263 H (70-110) mg/dL 02/21/24 Range/Units 06:46 Sodium (137-145) mmol/L Potassium (3.5-5.1) mmol/L Chloride (98-107) mmol/L Carbon Dioxide (22-30) mmol/L BUN (9-20) mg/dL Creatinine (0.66-1.25) mg/dL Glucose (74-99) mg/dL POC Glucose (mg/dL) 222 H (70-110) mg/dL Assessment and Plan Plan: Assessment: 1. Chronic kidney disease stage IIIb with baseline creatinine of 1.8 secondary to long-term calcineurin inhibitor use and solitary kidney. 2. Acute kidney injury secondary to ATN with creatinine at 3.47 in November 2023 in [place]. Creatinine today is 3.01. 3. Acute hypoxic respiratory failure secondary to pneumonia. On antibiotics. 4. Status post donor renal transplant in 2012 at [facility] maintained on tacrolimus, Myfortic and prednisone. Tacrolimus level 4.7 dated February 17, 2024. 5. A-fib with RVR status post cardioversion. 6. Volume overload. Status post Lasix this admission. 7. Metabolic acidosis secondary to acute kidney injury. Stable. 8. Anemia of chronic kidney disease. 9. Diabetes mellitus. 10. Acute on chronic diastolic CHF with moderate mitral regurgitation, tricuspid regurgitation and mild pulmonary hypertension. Plan: Potassium level 5.4 but hemolyzed. This will be repeated. Maintain home antirejection meds. Avoid nephrotoxins. Check iron studies. Continue to monitor renal function and urine output.
[2024-02-21] MEDS: AMIODARONE 100 MG TAB PO SCH (10:15)
[2024-02-21] MEDS: predniSONE 5 MG TAB PO SCH (11:19)
[2024-02-21 12:02] LABS: Glucose,Whole Blood 239 mg/dL (70-110)
[2024-02-21 12:50] LABS: Basophils % (A) 0 %; Eosinophils # (A) 0.1 k/uL (0-0.7); Eosinophils % (A) 1 %; HCT 32.1 % (39.0-53.0); HGB 9.6 gm/dL (13.0-17.5); Hypochromasia Moderate; Lymphocytes # (A) 0.8 k/uL (1.0-4.8); Lymphocytes % (A) 10 %; MCH 28.3 pg (25.0-35.0); MCV 94.6 fL (80.0-100.0); Mean Platelet Volume 8.3; Monocytes # (A) 0.5 k/uL (0-1.0); Monocytes % (A) 7 %; Neutrophils % (A) 80 %; Platelet Count 203 k/uL (150-450); RDW 14.4 % (11.5-15.5); WBC 7.5 k/uL (3.8-10.6)
--- NOTE | 2024-02-21 12:55 | CT ---
EXAMINATION TYPE: CT chest wo con CT DLP: 507 mGycm, Automated exposure control for dose reduction was used. DATE OF EXAM: 02/21/2024 11:51 AM COMPARISON: Chest radiograph from same day. 01/18/2016. CLINICAL INDICATION:Male, 68 years old with history of hypoxic respiratory failure, hypoxic TECHNIQUE: Multiple axial images were obtained through the chest. Sagittal and coronal reformats were created for review. Contrast used: mL of (None if empty) Oral contrast used: (None if empty) FINDINGS: LUNGS/ PLEURA: Small bilateral pleural effusions with some atelectasis changes in the right middle lo be. Scattered groundglass opacities are seen in the lungs most pronounced in the upper lungs. AIRWAY: Patent and unremarkable. HEART: Atherosclerosis of the coronary arteries. Mild cardiomegaly. Aortic valve repair changes.. The re is coronary artery atherosclerosis. Left atrial appendage occlusion device. MEDIASTINUM: No gross evidence of adenopathy. VASCULATURE: No aortic aneurysm. Scattered atherosclerosis of the arterial vasculature. MUSCULOSKELETAL: No acute osseous abnormalities, sternotomy wires are present. SOFT TISSUES/LYMPH NODES: Unremarkable. LOWER NECK: No significant findings. UPPER ABDOMEN: Atrophic kidneys bilaterally. Scattered colonic diverticula. IMPRESSION: 1. Small bilateral pleural effusions with cardiomegaly correlate serum BNP. 2. Scattered groundglass opacities in the lungs correlate for atypical pneumonia versus pulmonary va scular congestion. 3. Right middle lobe atelectasis. 4. Aortic valve repair changes.
[2024-02-21 13:22] VITALS: BMI 31.5
--- NOTE | 2024-02-21 13:33 | P.PN ---
Subjective Progress Note Date: 02/21/24 On today's evaluation of 02/21/2024, the patient is being seen for a follow-up. The patient remains in intensive care unit. The patient currently is on 6 L of oxygen by nasal cannula. Overnight, utilizing the BiPAP pressure of 12 over 5 cm of water. He continues to be on IV Rocephin and doxycycline treating an underlying pneumonia since admission. The most recent chest x-ray from today is showing stable interstitial bilateral pulmonary filtrates in addition to the right midlung opacity involving the minor fissure which could be an area of atelectasis or a loculated pleural effusion. The patient otherwise denies having any worsening in shortness of breath. The patient has limited congestion. No significant sputum production. He has sustained an acute kidney injury on top of his chronic stage IIIb chronic kidney disease. The patient is post renal transplantation that was done many years back and the patient remains on a combination of Prograf and low-dose steroids for immunosuppression. The patient also has a component of mild systolic congestive heart failure and atrial fibrillation/flutter and his heart rate is under better control with a combination of amiodarone and beta-blockers. He does have also valvular heart disease with severe mitral regurgitation and the patient has a bioprosthetic aortic valve along with history of diabetes mellitus type 2 maintained on Levemir insulin 35 units twice a day and NovoLog 4 units with meals and a sliding scale coverage. He has a Cintron catheter in place. Nephrology and cardiology are both on the case. The white cell count today is at 7.7 with a hemoglobin 9.6 and a platelet count of 203. BUN is 119 with a creatinine of 3.01 and a sodium levels at 136 with a potassium level of 5.0. The patient remains hemodynamically stable. Based on his ongoing respiratory failure and hypoxemia, a CAT scan of the chest was ordered for today. No altered mentation. Appetite is quite diminished. Oral intake is also diminished. I reviewed the echocardiogram and the patient has normal functioning bioprosthetic aortic valve without any stenosis. Noted the bioprosthetic aortic valve was not adequately visualized on echocardiogram. He also has moderate mitral regurgitation, pulmonary hypertension with a systolic pulmonary artery pressure estimated to be around 42 mmHg. The left ventricular ejection fraction is 50 to 55%. Remains on anticoagulation with Eliquis 2.5 mg twice a day. Remains on immunosuppression. No diuretics for now. In terms of fluid balance, the fluid balance has been -655 cc over the past 24 hours. The patient has undergone his reassessment patient [facility] approximately 10 years ago. He has chronic stage III kidney disease along with hypertension hyperlipidemia and chronic neuropathy. He also has obstructive sleep apnea and mild peripheral vascular disease. At the time of admission, his proBNP level was quite elevated. He was also in atrial flutter at the time of admission with rapid ventricular response which ultimately improved and his rate is under better control for now. Objective - Vital Signs Vital signs: Vital Signs Temp 97 F L 02/21/24 04:00 Pulse 60 02/21/24 08:46 Resp 12 02/21/24 07:00 BP 152/63 02/21/24 07:00 Pulse Ox 96 02/21/24 08:35 FiO2 50 02/21/24 04:00 Intake & Output 02/20/24 02/21/24 02/21/24 18:59 06:59 18:59 Intake Total 135 220 Output Total 450 630 Balance -315 -410 Weight 99.7 kg Intake: IV 10 220 Normal Saline 10 120 cefTRIAXone 2 gm In 100 Sodium Chloride 0.9% 50 ml @ 100 mls/hr IVPB DAILY@2100 [facility] Rx#: [id number] Intake, IV Titration 125 Amount Diltiazem 125 mg In 125 Sodium Chloride 0.9% 100 ml @ 5 MG/HR 5 mls/hr IV .Q24H [facility] Rx#:[id number] Output: Urine 450 630 Other: Voiding Method Indwelling Catheter Indwelling Catheter - Exam No acute distress, much improved, currently on nasal O2, at 6 L. HEENT examination is grossly unremarkable. Mucous membranes are moist. No oral lesions. Neck supple. Full range of motion. No adenopathy thyromegaly or neck vein distention. Cardiovascular examination reveals an regular rhythm and rate. S1-S2 normal. No S3 or S4. Systolic ejection murmur grade 4/6 heard throughout the precordium including left lateral sternal border and apex. Lungs reveal bilateral coarse rhonchi. Basilar crackles are noted. No wheezes. Breath sounds are equal bilaterally. Abdomen obese, but without tenderness. Extremities are intact. No signs or clubbing. There is 1+ edema. Skin is without rash or lesion. Neurologic examination is brief but nonfocal. - Labs CBC & Chem 7: 02/21/24 11:47 02/21/24 11:47 Labs: Abnormal Lab Results - Last 24 Hours (Table) 02/20/24 02/20/24 02/20/24 Range/Units 11:26 16:08 17:45 Sodium (137-145) mmol/L Potassium (3.5-5.1) mmol/L Chloride (98-107) mmol/L Carbon Dioxide (22-30) mmol/L BUN (9-20) mg/dL Creatinine (0.66-1.25) mg/dL Glucose (74-99) mg/dL POC Glucose (mg/dL) 163 H 221 H 219 H (70-110) mg/dL 02/20/24 02/21/24 02/21/24 Range/Units 19:45 03:00 05:47 Sodium 136 L (137-145) mmol/L Potassium 5.4 H (3.5-5.1) mmol/L Chloride 108 H (98-107) mmol/L Carbon Dioxide 21 L (22-30) mmol/L BUN 119 H* (9-20) mg/dL Creatinine 3.01 H (0.66-1.25) mg/dL Glucose 210 H (74-99) mg/dL POC Glucose (mg/dL) 251 H 263 H (70-110) mg/dL 02/21/24 Range/Units 06:46 Sodium (137-145) mmol/L Potassium (3.5-5.1) mmol/L Chloride (98-107) mmol/L Carbon Dioxide (22-30) mmol/L BUN (9-20) mg/dL Creatinine (0.66-1.25) mg/dL Glucose (74-99) mg/dL POC Glucose (mg/dL) 222 H (70-110) mg/dL Assessment and Plan Plan: Acute hypoxemic respiratory failure, likely multifactorial, in part related to atrial fibrillation/flutter with RVR, CHF/fluid overload, and possible pneumonia. Currently on 6 liters. The chest x-ray is consistent with interstitial bilateral pulm infiltrates, new opacity in the right midlung and possibly a small bilateral pleural effusions. A flutter with rapid ventricular response at time of admission the patient is S/P transesophageal echocardiogram, and cardioversion, February 17, 2024. Rate is controlled for now and the patient remains on amiodarone and metoprolol and the patient is also on anticoagulation with Eliquis. History of kidney transplantation, 2013, at [facility]. The patient has chronic stage III kidney disease. NATE on top of chronic stage III kidney disease and the creatinine is up to 3.01 with elevated BUN level. CAD , Previous bypass grafting, 2019, [facility]. Preserved LV function with an ejection fraction of 50 to 55% along with valvular heart disease and moderate MR, aortic valve is bioprosthetic and functioning adequately at this point in time based on the most and echocardiogram. Moderate MR, preserved LV History of hypertension. History of hyperlipidemia. History of diabetes mellitus type II maintained on Levemir insulin 35 units twice a day along with NovoLog 4 units with meals and sliding scale coverage. History of gout. History of CVA, at age 42. Peripheral vascular disease Plan Titrate FiO2 to maintain saturation above 90%. Currently on 6 L BiPAP overnight Obtaining noncontrast CAT scan of the chest to further characterize the pulmonary abnormalities Echocardiogram was noted Avoid nephrotoxic agents Continue Prograf and prednisone at the low-dose Monitor Prograf levels Were reviewed the CAT scan of the chest once completed will make further recommendations accordingly.
[2024-02-21 17:53] LABS: Glucose,Whole Blood 362 mg/dL (70-110)
[2024-02-21] MEDS ORDERED: DEXTROSE 50% SYRINGE 50 ML IVP PRN (18:10)
[2024-02-21] MEDS: INSULIN ASPART (NovoLOG) 100 UNIT/ML VIAL SQ SCH (18:25)
[2024-02-21 19:07] LABS: % Iron Saturation 9.69 (15.00-50.00)
[2024-02-21 20:27] LABS: Glucose,Whole Blood 225 mg/dL (70-110)
[2024-02-22 06:17] LABS: Glucose,Whole Blood 60 mg/dL (70-110)
[2024-02-22 06:17] LABS: Glucose,Whole Blood 61 mg/dL (70-110)
[2024-02-22 06:36] LABS: Glucose,Whole Blood 68 mg/dL (70-110)
[2024-02-22 06:39] LABS: Basophils % (A) 0 %; Eosinophils # (A) 0.1 k/uL (0-0.7); Eosinophils % (A) 2 %; HCT 29.4 % (39.0-53.0); HGB 8.9 gm/dL (13.0-17.5); Hypochromasia Moderate; Lymphocytes # (A) 1.4 k/uL (1.0-4.8); Lymphocytes % (A) 19 %; MCH 28.4 pg (25.0-35.0); MCHC 30.3 g/dL (31.0-37.0); MCV 93.6 fL (80.0-100.0); Mean Platelet Volume 8.3; Monocytes # (A) 0.5 k/uL (0-1.0); Monocytes % (A) 7 %; Neutrophils # (A) 5.4 k/uL (1.3-7.7); Neutrophils % (A) 71 %; Platelet Count 197 k/uL (150-450); RBC 3.14 m/uL (4.30-5.90); RDW 14.4 % (11.5-15.5); WBC 7.6 k/uL (3.8-10.6)
[2024-02-22] MEDS: DEXTROSE 50% SYRINGE 50 ML IVP PRN (06:43)
[2024-02-22 06:53] LABS: African American GFR (CKD) 29 (>60 ml/min/1.73 sqM); Anion Gap 4 mmol/L; Calcium 9.5 mg/dL (8.4-10.2); Carbon Dioxide 25 mmol/L (22-30); Chloride 109 mmol/L (98-107); Non-African American GFR(CKD) 25 (>60 ml/min/1.73 sqM); Potassium 4.5 mmol/L (3.5-5.1); Sodium 138 mmol/L (137-145)
[2024-02-22 07:01] LABS: Blood Urea Nitrogen 111 mg/dL (9-20); Glucose 48 mg/dL (74-99)
[2024-02-22 07:10] LABS: Glucose,Whole Blood 189 mg/dL (70-110)
--- NOTE | 2024-02-22 07:19 | XR ---
EXAMINATION TYPE: XR chest 1V portable DATE OF EXAM: 02/22/2024 COMPARISON: 02/21/2024 INDICATION: CHF exacerbation TECHNIQUE: Single frontal view of the chest is obtained. FINDINGS: The heart size is enlarged. The pulmonary vasculature is somewhat prominent, improved from comparison. There is a opacification over the right midlung. This is less distinct than prior and may be resolvin g. IMPRESSION: 1. Mild improvement of suspected congestive heart failure. Continued follow-up is recommended.
--- NOTE | 2024-02-22 08:19 | P.PN ---
Subjective Progress Note Date: 02/22/24 HISTORY OF PRESENT ILLNESS: 68-year-old office patient with active medical history of atherosclerotic heart disease post CABG, end-stage renal disease post renal transplant at [facility] over 10 years ago, chronic stage IIIb kidney disease, hypertension, hyperlipidemia, chronic neuropathy, obesity, obstructive sleep apnea, mild peripheral arterial disease, who was back at [facility] few months ago for worsening kidney function was hospitalized for few days. He was not in the office on 02/14/2024 with complaining of severe dyspnea and shortness of b reath with cough productive phlegm not been able to lay down flat mild fluid overload with worsening PND and orthopnea was having significant tachypnea and tachycardia with hypoxia. Pulse ox was less than 90 percentile looks the same time and failure but might have double pneumonia. Patient was sent to the emergency room at [facility] where was seen and evaluated Surprisingly h is hemoglobin came back at 10.1 with white blood cell 6.0 creatinine 1.87 close to the last creatinine he has before leaving [facility] a few months ago his blood sugar was elevated at 264 with mildly elevated troponin 0.069 BNP 8 6620. His EKG from the office and from the emergency department showed atrial flutter with pulse rate running at 142 bpm quite irregular. Chest x-ray shows l eft lower lung airspace opacification correlate with pneumonia and mild congestive heart failure as well. Patient was started on IV antibiotics with ceftriaxone 2 g Cardizem drip was started to bring his pulse rate down not helpful or successful at the time. Consult cardiology and pulmonary patient admitted to the hospital. 02/16/2024: The patient remained extremely sick require to be move on to BiPAP, was transferred to the intensive care unit still tachycardic with pulse rate around 140 bpm close schedule initially to go for cardioversion after transesophageal echocardiogram but with his respiratory failure on BiPAP not able to do this today patient is not stable continue current management for now patient manage higher dose of Cardizem was not started on amiodarone yet. Still have significant pulmonary edema being on diuretics 4. Much worsening kidney function compared to before and BNP still elevated. Continue to be treated for left lower lobe pneumonia there is transthoracic echocardiogram showed severely increased left ventricular wall thickening with left ventricular ejection fraction of 50-55 percentile with moderate mitral regurgitation who has b ioprosthetic aortic valve not well-visualized with his valve area is only 1 cm.. Please continue on azithromycin and Rocephin for possible pneumonia left-sided: Heparin drip and Cardizem drip at this point does not require any vasopressor. Will continue to stabilize patient hopefully pulse rate will drop down to be more stable to be cardioversion eventually will continue BiPAP continue ICU management. 02/17/2024: Patient is off BiPAP today pulse rate is 120s still in a flutter, plan with cardiology to do transesophageal echocardiogram and if there is no thrombus is given the going for cardioversion today. Still on IV antibiotics, still on high flow oxygen at this point was started on amiodarone 5 to bring his pulse rate down little bit. His kidney function slightly was down from before with creatinine up to 2.63. Continue to make good urine output so far. My fear with his transesophageal echocardiogram or any testing that he has an extremely severe spinal stenosis and problem with his cervical spine second third and fourth we have just to be careful tilting his neck backwards specially required intubation. Patient shortness of breath has been much better and is not having any chest pain today. Remain in ICU require more help still seen nephrology inside intensive care pulmonary and cardiology. 02/18/2024: He had cardioversion yesterday successfully after transesophageal echocardiogram and seems still to be running in the 70s, was on amiodarone drip which was stopped today because of declining kidney function. He is GFR down significantly with bun up to 19 creatinine 3.50. His shortness of breath had significantly decreased. Patient is still making good urine output does not need any hemodialysis at this point. He is on 3 L of O2 able to talk comfortably today hemoglobin is down to 8.9 electrolytes are better with exception of creatinine. Patient remain in the ICU for the next 24 hours. Treatment for his pneumonia still with IV and hide currently seems to be successful patient is doing well. 02/19/2024: Patient has 1 more shortness of breath today he is using BiPAP, slightly worsening kidney function with bun 102 creatinine 3.53, mildly elevated blood sugar, hemoglobin is down to 9.0 platelet count 200. Continue empiric IV antibiotics remain on Rocephin 2 g IV daily still on doxycycline as well. Amiodarone was decreased to 200 mg daily with pulse rates under control pulse still irregular since cardioversion. Despite worsening kidney function patient is still making good urine output. Blood sugar has been slightly better. No further chest pain or angina at this point, metoprolol was reduced to 25 mg twice a day still on Eliquis 2.5 mg twice a day as well. His blood pressure is slightly better. 02/20/2024: Still in the ICU hide use of BiPAP through the night felt slightly b vanda, his A-fib still under control on metoprolol down to 25 mg twice a day still on amiodarone 200 mg daily, blood pressure was elevated amlodipine was added 5 mg daily. He is blood work today with his creatinine down to 3.37 and bun at 111 hemoglobin down to 8.8 does not require blood transfusion no thrombocytopenia. 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 Patient is awake alert interactive not symptomatic today still having slight shortness of breath dyspnea no chest pain. His pneumonia still treated with Rocephin and doxycycline culture was completely negative. Chest x-ray repeated today still showing interstitial finding consistent with more heart failure and the left lobe still have significant infiltrate. 02/21/2024: Patient remained on BiPAP all night, still out of breath, kidney f unction is still down significantly. A-fib is much better with pulse rates in the 60s and 70s but is still on amiodarone 200 mg a day orally hoping to get him off amiodarone completely one of the nephrotoxic agent he is on specially if cardiology believe can maintain patient on beta-amy to keep a pulse rate under control. His infection and infiltrate has improved some continue on antibiotics. Urine output still up as well the patient is not to any degree close to dialysis at this point. Still on his antirejection drug for his transplant. Patient still sick I believe he needs to stay in the ICU another day. 02/22/2024: Patient is off BiPAP he is breathing better this morning he still fe eling he is quite good shortness of breath, chest x-ray from this morning shows less water retention congestive heart failure compared to the previous 1, also patient had a CAT scan of the lung sure the ground glass picture similar to mild fibrosis may be this is atypical pneumonitis as for the pneumonia infiltrate much better. His kidney function has improved compared to yesterday he is down on amiodarone to 100 mg a day which seem had helped quite bit his pulse is still in the 60s regular. Patient still critically ill and required to be in the ICU. REVIEW OF SYSTEMS: CONSTITUTIONAL: Morbid obesity and mild respiratory distress. EYES: No icterus sclerae, no conjunctivitis. EARS, NOSE, MOUTH, THROAT, and FACE: No sore throat, lymphadenopathy, carotid bruits or deformity. RESPIRATORY: Positive shortness of breath cough or wheezes. CARDIOVASCULAR: Positive PND orthopnea palpitation. GASTROINTESTINAL: No Abd pain, Nausea or vomiting, no pain or constipation, No GI Bleed, no distention or masses. GENITOURINARY: No polyuria nocturia without any hematuria. INTEGUMENT/BREAST: Negative for any muscular injury with mild osteoarthritis.. HEMATOLOGIC/LYMPHATIC: Chronic anemia with no bleeding. MUSCULOSKELTAL: Negative for Myalgia or arthralgia. NEURLOGICAL: No LOC, Sz or syncope, blurred vision dizziness or abnormality.. BEHAVIORAL/PSYCH: Negative. ENDOCRINE: Negative. PHYSICAL EXAMINATION: General Appearance: Overweight in mild respiratory distress. Neck HEENT: Supple, no lymphadenopathy, no thyroid enlargement, no carotid bruits. Lungs: Decreased breath sound bilaterally especially the left side with fine rhonchi positive crackles in the bases positive mild inspiratory expiratory wheezes. Chest Wall: Decreased expansion with deep inspiration no tenderness and no deformity was found on exam, no costochondral pain or discomfort. Heart: Irregular rate and rhythm, S1, S2 positive S3 positive PVCs. Back: Symmetric, no curvature, ROM normal, no CVA tenderness. Abdomen: Soft, non-tender, bowel sounds active all four quadrants, no masses, no organomegaly. Extremities: Extremities normal, atraumatic, no cyanosis positive edema. Pulses: 2+ and symmetric. Skin: Skin color, texture, tugor normal, no rashes or lesions. Neurologic: Alert oriented x3 cranial nerves II through XII intact, no motor deficit, no abnormal balance or gait. ASSESSMENT AND PLAN: _Acute respiratory failure: Combination of congestive heart failure along with arrhythmia and left lower lobe pneumonia. Still require higher flow oxygen BiPAP for the night but is doing much better. _Left lower lobe pneumonia: CAT scan of the chest shows groundglass picture similar to atypical pneumonia or fibrosis. _A flutter with rapid ventricular response: Still on metoprolol and amiodarone down to 100 mg doing much better. _Congestive heart failure acute with mild exacerbation mostly systolic dysfunction the patient still acting wet with worsening heart failure with the advanced kidney failure at this point patient is not diuresing as well as expected end up having Cintron catheter because of urinary tension watching his urine output will be better. _Urinary retention: Cintron catheter was replaced and patient was withholding quite good urine is irritated with the catheter but feeling slightly better with increased urine output. _Advanced kidney failure mostly stage IV: Has improved significantly he is down to stage III chronic kidney disease does not require any dialysis continue hydration and continue to watch for any nephrotoxic agent. _Valvular heart disease: With severe mitral regurgitation and bio static aortic valve not well-visualized but size only 1.0 cm. Continue medical management for now need different type of echo for more active seen on the aortic valve. _Type 2 diabetes he was hypoglycemic this morning had to hold his short acting insulin, continue diet continue Accu-Chek with sliding scales coverage. _End-stage renal disease posttransplant remain on antirejection drugs will con sult nephrology continue mycophenolate acid along with Prograf and still on prednisone 5 mg daily. Still making urine output does not require dialysis so far. _Stage IIIb chronic kidney disease posttransplant continue hydration avoid nephrotoxic agent type II preserve any kidney function. She does not require dialysis yet. _Hypertension:_Has been on hydralazine 50 mg twice a day, amlodipine 10 mg daily, metoprolol titrate 50 mg 3 times a day. _Hyperlipidemia: Has been on Lipitor 40 mg a day currently medication. Urinary retention: Had Cintron catheter in. CODE STATUS: Full code. Prognosis: Fair Discussion: Continue supportive care remained critically ill at this point. Chest x-ray showing possible fibrosis picture still on IV antibiotic for pneumonia continue updraft treatment continue to see pulmonary, cardiology and nephrology. Objective - Vital Signs Vital signs: Vital Signs Temp 97.3 F L 02/22/24 04:00 Pulse 57 L 02/22/24 04:00 Resp 20 02/22/24 04:00 BP 126/58 02/22/24 04:00 Pulse Ox 92 L 02/22/24 04:00 FiO2 40 02/22/24 04:00 Intake & Output 02/21/24 02/21/24 02/22/24 06:59 18:59 06:59 Intake Total 220 110 380 Output Total 630 525 485 Balance -410 -415 -105 Weight 99.7 kg 99.7 kg Intake: IV 220 110 140 Normal Saline 120 110 90 cefTRIAXone 2 gm In 100 50 Sodium Chloride 0.9% 50 ml @ 100 mls/hr IVPB DAILY@2100 [facility] Rx#: [id number] Tube Feeding 240 Output: Urine 630 525 485 Other: Voiding Method Indwelling Catheter Indwelling Catheter Indwelling Catheter - Labs CBC & Chem 7: 02/22/24 05:41 02/22/24 05:41 Labs: Abnormal Lab Results - Last 24 Hours (Table) 02/21/24 02/21/24 02/21/24 Range/Units 05:47 06:46 11:47 RBC 3.40 L (4.30-5.90) m/uL Hgb 9.6 L (13.0-17.5) gm/dL Hct 32.1 L (39.0-53.0) % MCHC 30.0 L (31.0-37.0) g/dL Lymphocytes # 0.8 L (1.0-4.8) k/uL Sodium 136 L (137-145) mmol/L Potassium 5.4 H (3.5-5.1) mmol/L Chloride 108 H (98-107) mmol/L Carbon Dioxide 21 L (22-30) mmol/L BUN 119 H* (9-20) mg/dL Creatinine 3.01 H (0.66-1.25) mg/dL Glucose 210 H (74-99) mg/dL POC Glucose (mg/dL) 222 H (70-110) mg/dL Iron (65-175) UG/DL % Saturation (15.00-50.00) Transferrin (204.0-354.0) mg/dL Ferritin (22.0-322.0) ng/mL 02/21/24 02/21/24 02/21/24 Range/Units 11:47 12:00 17:51 RBC (4.30-5.90) m/uL Hgb (13.0-17.5) gm/dL Hct (39.0-53.0) % MCHC (31.0-37.0) g/dL Lymphocytes # (1.0-4.8) k/uL Sodium (137-145) mmol/L Potassium (3.5-5.1) mmol/L Chloride (98-107) mmol/L Carbon Dioxide (22-30) mmol/L BUN (9-20) mg/dL Creatinine (0.66-1.25) mg/dL Glucose (74-99) mg/dL POC Glucose (mg/dL) 239 H 362 H (70-110) mg/dL Iron 25 L (65-175) UG/DL % Saturation 9.69 L (15.00-50.00) Transferrin 184.0 L (204.0-354.0) mg/dL Ferritin 455.0 H (22.0-322.0) ng/mL 02/21/24 Range/Units 20:26 RBC (4.30-5.90) m/uL Hgb (13.0-17.5) gm/dL Hct (39.0-53.0) % MCHC (31.0-37.0) g/dL Lymphocytes # (1.0-4.8) k/uL Sodium (137-145) mmol/L Potassium (3.5-5.1) mmol/L Chloride (98-107) mmol/L Carbon Dioxide (22-30) mmol/L BUN (9-20) mg/dL Creatinine (0.66-1.25) mg/dL Glucose (74-99) mg/dL POC Glucose (mg/dL) 225 H (70-110) mg/dL Iron (65-175) UG/DL % Saturation (15.00-50.00) Transferrin (204.0-354.0) mg/dL Ferritin (22.0-322.0) ng/mL Microbiology - Last 24 Hours (Table) 02/15/24 22:57 Blood Culture - Final Blood 02/16/24 00:10 Blood Culture - Final Blood
--- NOTE | 2024-02-22 10:25 | PN ---
PROGRESS NOTE SUBJECTIVE: Graham is a 68-year-old gentleman with history of coronary artery disease, paroxysmal atrial fibrillation, valvular heart disease, hypertension, chronic renal insufficiency, is admitted to hospital with pneumonia and we were consulted because of atrial fibrillation with rapid ventricular rate. The patient underwent cardioversion and he is currently in sinus rhythm. The patient has chronic renal failure and had kidney transplant. The patient is still somewhat short of breath at rest. CURRENT MEDICATIONS: Include, 1. Amiodarone 100 mg daily. 2. Norvasc 5 mg daily. 3. Eliquis 2.5 b.i.d. 4. Aspirin. 5. Lipitor. 6. Hydralazine. 7. Lopressor 25 b.i.d. OBJECTIVE: VITAL SIGNS: Heart rate is 67 beats per minute, blood pressure is 130/62, respiratory rate is 18. CHEST: Reveals diminished air entry at the bases without any crackles or rhonchi. HEART: Reveals first and second heart sounds. No gallop. Has an ejection systolic murmur at the right parasternal border and a systolic murmur at the apex. ASSESSMENT: 1. Paroxysmal atrial fibrillation, status post cardioversion. 2. History of aortic valve replacement. 3. Chronic renal insufficiency. 4. History of kidney transplant. PLAN: I will continue him on his current medications. MMODL / IJN: [id number] /
[2024-02-22] MEDS ORDERED: ZINC OXIDE PASTE (Z-GUARD) 1 APPLIC TOPICAL PRN (10:55)
[2024-02-22] MEDS: FUROSEMIDE 10 MG/ML 4 ML VIAL IV STA (11:08)
[2024-02-22 11:38] LABS: Glucose,Whole Blood 158 mg/dL (70-110)
--- NOTE | 2024-02-22 11:50 | P.PN ---
Subjective Patient is seen in follow-up for acute kidney injury on chronic kidney disease and renal transplant management. Renal function better. Nonoliguric. Denies chest pain or shortness of breath. Oral intake fair. Vital signs are stable. General: No acute distress. HEENT: Head exam is unremarkable. On nasal cannula. LUNGS: No audible rhonchi or wheezes. HEART: Rate and Rhythm are regular. ABDOMEN: Nontender. EXTREMITITES: 1+ edema. Objective - Vital Signs Vital signs: Vital Signs Temp 97.6 F 02/22/24 08:00 Pulse 61 02/22/24 09:00 Resp 16 02/22/24 09:00 BP 131/73 02/22/24 09:00 Pulse Ox 94 L 02/22/24 09:00 FiO2 40 02/22/24 05:00 Intake & Output 02/21/24 02/22/24 02/22/24 18:59 06:59 18:59 Intake Total 110 800 30 Output Total 525 660 525 Balance -415 140 -495 Weight 99.7 kg Intake: IV 110 170 30 Normal Saline 110 120 30 cefTRIAXone 2 gm In 50 Sodium Chloride 0.9% 50 ml @ 100 mls/hr IVPB DAILY@2100 [facility] Rx#: [id number] Oral 390 Tube Feeding 240 Output: Urine 525 660 525 Other: Voiding Method Indwelling Catheter Indwelling Catheter Indwelling Catheter - Labs CBC & Chem 7: 02/22/24 05:41 02/22/24 05:41 Labs: Abnormal Lab Results - Last 24 Hours (Table) 02/21/24 02/21/24 02/21/24 Range/Units 11:47 11:47 12:00 RBC 3.40 L (4.30-5.90) m/uL Hgb 9.6 L (13.0-17.5) gm/dL Hct 32.1 L (39.0-53.0) % MCHC 30.0 L (31.0-37.0) g/dL Lymphocytes # 0.8 L (1.0-4.8) k/uL Chloride (98-107) mmol/L BUN (9-20) mg/dL Creatinine (0.66-1.25) mg/dL Glucose (74-99) mg/dL POC Glucose (mg/dL) 239 H (70-110) mg/dL Hemoglobin A1c (<=6.0) % Iron 25 L (65-175) UG/DL % Saturation 9.69 L (15.00-50.00) Transferrin 184.0 L (204.0-354.0) mg/dL Ferritin 455.0 H (22.0-322.0) ng/mL 02/21/24 02/21/24 02/22/24 Range/Units 17:51 20:26 05:41 RBC (4.30-5.90) m/uL Hgb (13.0-17.5) gm/dL Hct (39.0-53.0) % MCHC (31.0-37.0) g/dL Lymphocytes # (1.0-4.8) k/uL Chloride (98-107) mmol/L BUN (9-20) mg/dL Creatinine (0.66-1.25) mg/dL Glucose (74-99) mg/dL POC Glucose (mg/dL) 362 H 225 H (70-110) mg/dL Hemoglobin A1c 8.1 H (<=6.0) % Iron (65-175) UG/DL % Saturation (15.00-50.00) Transferrin (204.0-354.0) mg/dL Ferritin (22.0-322.0) ng/mL 02/22/24 02/22/24 02/22/24 Range/Units 05:41 05:41 06:15 RBC 3.14 L (4.30-5.90) m/uL Hgb 8.9 L (13.0-17.5) gm/dL Hct 29.4 L (39.0-53.0) % MCHC 30.3 L (31.0-37.0) g/dL Lymphocytes # (1.0-4.8) k/uL Chloride 109 H (98-107) mmol/L BUN 111 H* (9-20) mg/dL Creatinine 2.55 H (0.66-1.25) mg/dL Glucose 48 L* (74-99) mg/dL POC Glucose (mg/dL) 61 L (70-110) mg/dL Hemoglobin A1c (<=6.0) % Iron (65-175) UG/DL % Saturation (15.00-50.00) Transferrin (204.0-354.0) mg/dL Ferritin (22.0-322.0) ng/mL 02/22/24 02/22/24 02/22/24 Range/Units 06:16 06:34 07:08 RBC (4.30-5.90) m/uL Hgb (13.0-17.5) gm/dL Hct (39.0-53.0) % MCHC (31.0-37.0) g/dL Lymphocytes # (1.0-4.8) k/uL Chloride (98-107) mmol/L BUN (9-20) mg/dL Creatinine (0.66-1.25) mg/dL Glucose (74-99) mg/dL POC Glucose (mg/dL) 60 L 68 L 189 H (70-110) mg/dL Hemoglobin A1c (<=6.0) % Iron (65-175) UG/DL % Saturation (15.00-50.00) Transferrin (204.0-354.0) mg/dL Ferritin (22.0-322.0) ng/mL 02/22/24 Range/Units 11:37 RBC (4.30-5.90) m/uL Hgb (13.0-17.5) gm/dL Hct (39.0-53.0) % MCHC (31.0-37.0) g/dL Lymphocytes # (1.0-4.8) k/uL Chloride (98-107) mmol/L BUN (9-20) mg/dL Creatinine (0.66-1.25) mg/dL Glucose (74-99) mg/dL POC Glucose (mg/dL) 158 H (70-110) mg/dL Hemoglobin A1c (<=6.0) % Iron (65-175) UG/DL % Saturation (15.00-50.00) Transferrin (204.0-354.0) mg/dL Ferritin (22.0-322.0) ng/mL Microbiology - Last 24 Hours (Table) 02/15/24 22:57 Blood Culture - Final Blood 02/16/24 00:10 Blood Culture - Final Blood Assessment and Plan Plan: Assessment: 1. Chronic kidney disease stage IIIb with baseline creatinine of 1.8 secondary to long-term calcineurin inhibitor use and solitary kidney. 2. Acute kidney injury secondary to ATN with creatinine at 3.47 in November 2023 in [place]. Renal function better. Creatinine 2.55. 3. Acute hypoxic respiratory failure secondary to pneumonia. On antibiotics. 4. Status post donor renal transplant in 2012 at [facility] [place] maintained on tacrolimus, Myfortic and prednisone. Tacrolimus level 4.7 dated February 17, 2024. 5. A-fib with RVR status post cardioversion. 6. Volume overload. Status post Lasix this admission. 7. Metabolic acidosis secondary to acute kidney injury. Improved. 8. Anemia of chronic kidney disease. Iron deficiency noted. 9. Diabetes mellitus. 10. Acute on chronic diastolic CHF with moderate mitral regurgitation, tricuspid regurgitation and mild pulmonary hypertension. 11. Volume overload. Plan: Lasix 40 mg IV once today. Maintain home antirejection meds. Avoid nephrotoxins. Add IV iron. Continue to monitor renal function and urine output.
[2024-02-22] MEDS: SODIUM FERRIC GLUCONAT-SUCROSE 125 MG in SODIUM CHLORIDE 0.9% 100 ML IVPB SCH (12:44)
--- NOTE | 2024-02-22 13:07 | P.PN ---
Subjective Progress Note Date: 02/22/24 On today's evaluation of 02/21/2024, the patient is being seen for a follow-up. The patient remains in intensive care unit. The patient currently is on 6 L of oxygen by nasal cannula. Overnight, utilizing the BiPAP pressure of 12 over 5 cm of water. He continues to be on IV Rocephin and doxycycline treating an underlying pneumonia since admission. The most recent chest x-ray from today is showing stable interstitial bilateral pulmonary filtrates in addition to the right midlung opacity involving the minor fissure which could be an area of atelectasis or a loculated pleural effusion. The patient otherwise denies having any worsening in shortness of breath. The patient has limited congestion. No significant sputum production. He has sustained an acute kidney injury on top of his chronic stage IIIb chronic kidney disease. The patient is post renal transplantation that was done many years back and the patient remains on a combination of Prograf and low-dose steroids for immunosuppression. The patient also has a component of mild systolic congestive heart failure and atrial fibrillation/flutter and his heart rate is under better control with a combination of amiodarone and beta-blockers. He does have also valvular heart disease with severe mitral regurgitation and the patient has a bioprosthetic aortic valve along with history of diabetes mellitus type 2 maintained on Levemir insulin 35 units twice a day and NovoLog 4 units with meals and a sliding scale coverage. He has a Cintron catheter in place. Nephrology and cardiology are both on the case. The white cell count today is at 7.7 with a hemoglobin 9.6 and a platelet count of 203. BUN is 119 with a creatinine of 3.01 and a sodium levels at 136 with a potassium level of 5.0. The patient remains hemodynamically stable. Based on his ongoing respiratory failure and hypoxemia, a CAT scan of the chest was ordered for today. No altered mentation. Appetite is quite diminished. Oral intake is also diminished. I reviewed the echocardiogram and the patient has normal functioning bioprosthetic aortic valve without any stenosis. Noted the bioprosthetic aortic valve was not adequately visualized on echocardiogram. He also has moderate mitral regurgitation, pulmonary hypertension with a systolic pulmonary artery pressure estimated to be around 42 mmHg. The left ventricular ejection fraction is 50 to 55%. Remains on anticoagulation with Eliquis 2.5 mg twice a day. Remains on immunosuppression. No diuretics for now. In terms of fluid balance, the fluid balance has been -655 cc over the past 24 hours. The patient has undergone his reassessment patient [facility] approximately 10 years ago. He has chronic stage III kidney disease along with hypertension hyperlipidemia and chronic neuropathy. He also has obstructive sleep apnea and mild peripheral vascular disease. At the time of admission, his proBNP level was quite elevated. He was also in atrial flutter at the time of admission with rapid ventricular response which ultimately improved and his rate is under better control for now. 02/22/2024, the patient is being seen for a follow-up. The patient is awake and alert and calm and comfortable on 4 L of oxygen by nasal cannula. Earlier this morning, the patient encountered an episode of hypoglycemia. He is typically running a lower blood sugar in the morning. Blood sugar was 48 and he was treated accordingly. He is also using the BiPAP overnight at a pressure of 12 over 5 cm for an FiO2 of 30%. In the morning, he is essentially on nasal cannula. CAT scan of the chest was done yesterday and showed small bilateral pleural effusions along with atelectatic changes in lung bases. There was also a right middle lobe atelectasis. No evidence of any pneumonia the patient remains on a combination of Rocephin and doxycycline. Renal function continues to improve and the creatinine is down to 2.5 with a BUN of 111. Sodium levels at 138 and a bicarb level is at 25. 7.6 with a hemoglobin 8.9 and a platelet count of 197. He is alert and awake and communicating. No other significant events overnight. He is currently on a combination of Prograf 1 mg twice a day and prednisone 5 mg p.o. daily and is also on mycophenolate 360 mg p.o. twice a day. Objective - Vital Signs Vital signs: Vital Signs Temp 97.6 F 02/22/24 11:52 Pulse 64 02/22/24 12:07 Resp 24 02/22/24 11:52 BP 129/59 02/22/24 11:52 Pulse Ox 94 L 02/22/24 11:52 FiO2 40 02/22/24 05:00 Intake & Output 02/21/24 02/22/24 02/22/24 18:59 06:59 18:59 Intake Total 110 800 30 Output Total 525 660 525 Balance -415 140 -495 Weight 99.7 kg Intake: IV 110 170 30 Normal Saline 110 120 30 cefTRIAXone 2 gm In 50 Sodium Chloride 0.9% 50 ml @ 100 mls/hr IVPB DAILY@2100 [facility] Rx#: [id number] Oral 390 Tube Feeding 240 Output: Urine 525 660 525 Other: Voiding Method Indwelling Catheter Indwelling Catheter Indwelling Catheter # Bowel Movements 1 - Exam No acute distress, much improved, currently on nasal O2, at 4 L of oxygen by nasal cannula Head exam was generally normal. There was no scleral icterus or corneal arcus. Mucous membranes were moist. HEENT examination is grossly unremarkable. Mucous membranes are moist. No oral lesions. Neck supple. Full range of motion. No adenopathy thyromegaly or neck vein distention. Cardiovascular examination reveals an regular rhythm and rate. S1-S2 normal. No S3 or S4. Systolic ejection murmur grade 4/6 heard throughout the precordium including left lateral sternal border and apex. Lungs reveal bilateral coarse rhonchi. Basilar crackles are noted. No wheezes. Breath sounds are equal bilaterally. Abdomen obese, but without tenderness. Extremities are intact. No signs or clubbing. There is 1+ edema. Skin is without rash or lesion. Neurologic examination is brief but nonfocal. - Labs CBC & Chem 7: 02/22/24 05:41 02/22/24 05:41 Labs: Abnormal Lab Results - Last 24 Hours (Table) 02/21/24 02/21/24 02/21/24 Range/Units 11:47 17:51 20:26 RBC (4.30-5.90) m/uL Hgb (13.0-17.5) gm/dL Hct (39.0-53.0) % MCHC (31.0-37.0) g/dL Chloride (98-107) mmol/L BUN (9-20) mg/dL Creatinine (0.66-1.25) mg/dL Glucose (74-99) mg/dL POC Glucose (mg/dL) 362 H 225 H (70-110) mg/dL Hemoglobin A1c (<=6.0) % Iron 25 L (65-175) UG/DL % Saturation 9.69 L (15.00-50.00) Transferrin 184.0 L (204.0-354.0) mg/dL Ferritin 455.0 H (22.0-322.0) ng/mL 02/22/24 02/22/24 02/22/24 Range/Units 05:41 05:41 05:41 RBC 3.14 L (4.30-5.90) m/uL Hgb 8.9 L (13.0-17.5) gm/dL Hct 29.4 L (39.0-53.0) % MCHC 30.3 L (31.0-37.0) g/dL Chloride 109 H (98-107) mmol/L BUN 111 H* (9-20) mg/dL Creatinine 2.55 H (0.66-1.25) mg/dL Glucose 48 L* (74-99) mg/dL POC Glucose (mg/dL) (70-110) mg/dL Hemoglobin A1c 8.1 H (<=6.0) % Iron (65-175) UG/DL % Saturation (15.00-50.00) Transferrin (204.0-354.0) mg/dL Ferritin (22.0-322.0) ng/mL 02/22/24 02/22/24 02/22/24 Range/Units 06:15 06:16 06:34 RBC (4.30-5.90) m/uL Hgb (13.0-17.5) gm/dL Hct (39.0-53.0) % MCHC (31.0-37.0) g/dL Chloride (98-107) mmol/L BUN (9-20) mg/dL Creatinine (0.66-1.25) mg/dL Glucose (74-99) mg/dL POC Glucose (mg/dL) 61 L 60 L 68 L (70-110) mg/dL Hemoglobin A1c (<=6.0) % Iron (65-175) UG/DL % Saturation (15.00-50.00) Transferrin (204.0-354.0) mg/dL Ferritin (22.0-322.0) ng/mL 02/22/24 02/22/24 Range/Units 07:08 11:37 RBC (4.30-5.90) m/uL Hgb (13.0-17.5) gm/dL Hct (39.0-53.0) % MCHC (31.0-37.0) g/dL Chloride (98-107) mmol/L BUN (9-20) mg/dL Creatinine (0.66-1.25) mg/dL Glucose (74-99) mg/dL POC Glucose (mg/dL) 189 H 158 H (70-110) mg/dL Hemoglobin A1c (<=6.0) % Iron (65-175) UG/DL % Saturation (15.00-50.00) Transferrin (204.0-354.0) mg/dL Ferritin (22.0-322.0) ng/mL Microbiology - Last 24 Hours (Table) 02/15/24 22:57 Blood Culture - Final Blood 02/16/24 00:10 Blood Culture - Final Blood Assessment and Plan Plan: Acute hypoxemic respiratory failure, likely multifactorial, in part related to atrial fibrillation/flutter with RVR, CHF/fluid overload, and possible pneumonia. Currently on 4 liters. The chest x-ray is consistent with interstitial bilateral pulm infiltrates, new opacity in the right midlung and possibly a small bilateral pleural effusions. No clear indication of pneumonia based on the CAT scan findings. The patient has right midlung atelectasis and small bilateral pleural effusions consistent with CHF and fluid overload. His oxygenation is stable at 4 L O2 nasal cannula and the patient lysing the BiPAP overnight. A flutter with rapid ventricular response at time of admission the patient is S/P transesophageal echocardiogram, and cardioversion, February 17, 2024. Rate is controlled for now and the patient remains on amiodarone and metoprolol and the patient is also on anticoagulation with Eliquis. History of kidney transplantation, 2012, at [facility]. The patient has chronic stage III kidney disease. NATE on top of chronic stage III kidney disease and the creatinine is improving CAD , Previous bypass grafting, 2019, [facility]. Preserved LV function with an ejection fraction of 50 to 55% along with valvular heart disease and moderate MR, aortic valve is bioprosthetic and functioning adequately at this point in time based on the most and echocardiogram. Moderate MR, preserved LV History of hypertension. History of hyperlipidemia. History of diabetes mellitus type II maintained on Levemir insulin 35 units twice a day along with NovoLog 4 units with meals and sliding scale coverage. History of gout. History of CVA, at age 42. Peripheral vascular disease Plan Titrate FiO2 to maintain saturation above 90%. Currently on 4 L BiPAP overnight CAT scan of the chest was noted consistent with bilateral pleural effusion right midlung atelectasis Echocardiogram was noted Avoid nephrotoxic agents Continue Prograf and prednisone at the low-dose and the patient is also on mycophenolate Monitor Prograf levels Nephrology on the case Encouraged to use of incentive spirometer May transfer to the medical surgical floor
[2024-02-22 13:58] LABS: Glucose,Whole Blood 272 mg/dL (70-110)
[2024-02-22 16:31] LABS: Glucose,Whole Blood 299 mg/dL (70-110)
[2024-02-22] MEDS: DILTIAZEM 125 MG in SODIUM CHLORIDE 0.9% 100 ML IV SCH (19:15)
[2024-02-22] MEDS: DILTIAZEM DRIP BOLUS FROM BAG 1 MG SOLN IV ONE (19:15)
[2024-02-22 20:29] LABS: Glucose,Whole Blood 205 mg/dL (70-110)
[2024-02-22] MEDS: INSULIN DETEMIR (LEVEMIR) 100 UNIT/ML SYR SQ SCH (21:12)
[2024-02-23 06:09] LABS: Glucose,Whole Blood 96 mg/dL (70-110)
--- NOTE | 2024-02-23 07:09 | XR ---
EXAMINATION TYPE: XR chest 1V portable DATE OF EXAM: 02/23/2024 COMPARISON: 02/22/2024 INDICATION: CHF exacerbation TECHNIQUE: Single frontal view of the chest is obtained. FINDINGS: The heart size is enlarged. The pulmonary vasculature is prominent but improving. There is diminished opacification to the right lower lung field. Mild infiltrate remains at the left base. IMPRESSION: 1. Improving congestive heart failure. Continued follow-up is recommended.
--- NOTE | 2024-02-23 08:32 | P.PN ---
Subjective Progress Note Date: 02/23/24 HISTORY OF PRESENT ILLNESS: 68-year-old office patient with active medical history of atherosclerotic heart disease post CABG, end-stage renal disease post renal transplant at [facility] over 10 years ago, chronic stage IIIb kidney disease, hypertension, hyperlipidemia, chronic neuropathy, obesity, obstructive sleep apnea, mild peripheral arterial disease, who was back at [facility] few months ago for worsening kidney function was hospitalized for few days. He was not in the office on 02/14/2024 with complaining of severe dyspnea and shortness of b reath with cough productive phlegm not been able to lay down flat mild fluid overload with worsening PND and orthopnea was having significant tachypnea and tachycardia with hypoxia. Pulse ox was less than 90 percentile looks the same time and failure but might have double pneumonia. Patient was sent to the emergency room at [facility] where was seen and evaluated Surprisingly h is hemoglobin came back at 10.1 with white blood cell 6.0 creatinine 1.87 close to the last creatinine he has before leaving [facility] a few months ago his blood sugar was elevated at 264 with mildly elevated troponin 0.069 BNP 8 6620. His EKG from the office and from the emergency department showed atrial flutter with pulse rate running at 142 bpm quite irregular. Chest x-ray shows l eft lower lung airspace opacification correlate with pneumonia and mild congestive heart failure as well. Patient was started on IV antibiotics with ceftriaxone 2 g Cardizem drip was started to bring his pulse rate down not helpful or successful at the time. Consult cardiology and pulmonary patient admitted to the hospital. 02/16/2024: The patient remained extremely sick require to be move on to BiPAP, was transferred to the intensive care unit still tachycardic with pulse rate around 140 bpm close schedule initially to go for cardioversion after transesophageal echocardiogram but with his respiratory failure on BiPAP not able to do this today patient is not stable continue current management for now patient manage higher dose of Cardizem was not started on amiodarone yet. Still have significant pulmonary edema being on diuretics 4. Much worsening kidney function compared to before and BNP still elevated. Continue to be treated for left lower lobe pneumonia there is transthoracic echocardiogram showed severely increased left ventricular wall thickening with left ventricular ejection fraction of 50-55 percentile with moderate mitral regurgitation who has b ioprosthetic aortic valve not well-visualized with his valve area is only 1 cm.. Please continue on azithromycin and Rocephin for possible pneumonia left-sided: Heparin drip and Cardizem drip at this point does not require any vasopressor. Will continue to stabilize patient hopefully pulse rate will drop down to be more stable to be cardioversion eventually will continue BiPAP continue ICU management. 02/17/2024: Patient is off BiPAP today pulse rate is 120s still in a flutter, plan with cardiology to do transesophageal echocardiogram and if there is no thrombus is given the going for cardioversion today. Still on IV antibiotics, still on high flow oxygen at this point was started on amiodarone 5 to bring his pulse rate down little bit. His kidney function slightly was down from before with creatinine up to 2.63. Continue to make good urine output so far. My fear with his transesophageal echocardiogram or any testing that he has an extremely severe spinal stenosis and problem with his cervical spine second third and fourth we have just to be careful tilting his neck backwards specially required intubation. Patient shortness of breath has been much better and is not having any chest pain today. Remain in ICU require more help still seen nephrology inside intensive care pulmonary and cardiology. 02/18/2024: He had cardioversion yesterday successfully after transesophageal echocardiogram and seems still to be running in the 70s, was on amiodarone drip which was stopped today because of declining kidney function. He is GFR down significantly with bun up to 19 creatinine 3.50. His shortness of breath had significantly decreased. Patient is still making good urine output does not need any hemodialysis at this point. He is on 3 L of O2 able to talk comfortably today hemoglobin is down to 8.9 electrolytes are better with exception of creatinine. Patient remain in the ICU for the next 24 hours. Treatment for his pneumonia still with IV and hide currently seems to be successful patient is doing well. 02/19/2024: Patient has 1 more shortness of breath today he is using BiPAP, slightly worsening kidney function with bun 102 creatinine 3.53, mildly elevated blood sugar, hemoglobin is down to 9.0 platelet count 200. Continue empiric IV antibiotics remain on Rocephin 2 g IV daily still on doxycycline as well. Amiodarone was decreased to 200 mg daily with pulse rates under control pulse still irregular since cardioversion. Despite worsening kidney function patient is still making good urine output. Blood sugar has been slightly better. No further chest pain or angina at this point, metoprolol was reduced to 25 mg twice a day still on Eliquis 2.5 mg twice a day as well. His blood pressure is slightly better. 02/20/2024: Still in the ICU hide use of BiPAP through the night felt slightly b vanda, his A-fib still under control on metoprolol down to 25 mg twice a day still on amiodarone 200 mg daily, blood pressure was elevated amlodipine was added 5 mg daily. He is blood work today with his creatinine down to 3.37 and bun at 111 hemoglobin down to 8.8 does not require blood transfusion no thrombocytopenia. Blood pressure is well-controlled pulse oximetry 93 percentile and 6 L, he spent the night and inspector cold working on BiPAP with 50% oxygen. Patient is awake alert interactive not symptomatic today still having slight shortness of breath dyspnea no chest pain. His pneumonia still treated with Rocephin and doxycycline culture was completely negative. Chest x-ray repeated today still showing interstitial finding consistent with more heart failure and the left lobe still have significant infiltrate. 02/21/2024: Patient remained on BiPAP all night, still out of breath, kidney f unction is still down significantly. A-fib is much better with pulse rates in the 60s and 70s but is still on amiodarone 200 mg a day orally hoping to get him off amiodarone completely one of the nephrotoxic agent he is on specially if cardiology believe can maintain patient on beta-amy to keep a pulse rate under control. His infection and infiltrate has improved some continue on antibiotics. Urine output still up as well the patient is not to any degree close to dialysis at this point. Still on his antirejection drug for his transplant. Patient still sick I believe he needs to stay in the ICU another day. 02/22/2024: Patient is off BiPAP he is breathing better this morning he still fe eling he is quite good shortness of breath, chest x-ray from this morning shows less water retention congestive heart failure compared to the previous 1, also patient had a CAT scan of the lung sure the ground glass picture similar to mild fibrosis may be this is atypical pneumonitis as for the pneumonia infiltrate much better. His kidney function has improved compared to yesterday he is down on amiodarone to 100 mg a day which seem had helped quite bit his pulse is still in the 60s regular. Patient still critically ill and required to be in the ICU. 02/23/2024: Patient was moved out of the ICU yesterday, has been settling down in his room, had use of BiPAP partially through the night but much better today compared to yesterday. His kidney function is improving gradually does not require any dialysis at this point. Still seen multi subspecialist between pulmonary, cardiology and nephrology. His A-fib remains slightly but active and he is back on Cardizem 5 mg an hour his oral medication should be adjusted today. Patient will initiate physical therapy and have protective services social worker work whether he needs to go somewhere for rehab or he can benefit from going home with physical therapy at home. He works at the [employer] and believe he is going back early next week which I do not think this is possible at this point. REVIEW OF SYSTEMS: CONSTITUTIONAL: Morbid obesity and mild respiratory distress. EYES: No icterus sclerae, no conjunctivitis. EARS, NOSE, MOUTH, THROAT, and FACE: No sore throat, lymphadenopathy, carotid bruits or deformity. RESPIRATORY: Positive shortness of breath cough or wheezes. CARDIOVASCULAR: Positive PND orthopnea palpitation. GASTROINTESTINAL: No Abd pain, Nausea or vomiting, no pain or constipation, No GI Bleed, no distention or masses. GENITOURINARY: No polyuria nocturia without any hematuria. INTEGUMENT/BREAST: Negative for any muscular injury with mild osteoarthritis.. HEMATOLOGIC/LYMPHATIC: Chronic anemia with no bleeding. MUSCULOSKELTAL: Negative for Myalgia or arthralgia. NEURLOGICAL: No LOC, Sz or syncope, blurred vision dizziness or abnormality.. BEHAVIORAL/PSYCH: Negative. ENDOCRINE: Negative. PHYSICAL EXAMINATION: General Appearance: Overweight in mild respiratory distress. Neck HEENT: Supple, no lymphadenopathy, no thyroid enlargement, no carotid bruits. Lungs: Decreased breath sound bilaterally especially the left side with fine rhonchi positive crackles in the bases positive mild inspiratory expiratory wheezes. Chest Wall: Decreased expansion with deep inspiration no tenderness and no deformity was found on exam, no costochondral pain or discomfort. Heart: Irregular rate and rhythm, S1, S2 positive S3 positive PVCs. Back: Symmetric, no curvature, ROM normal, no CVA tenderness. Abdomen: Soft, non-tender, bowel sounds active all four quadrants, no masses, no organomegaly. Extremities: Extremities normal, atraumatic, no cyanosis positive edema. Pulses: 2+ and symmetric. Skin: Skin color, texture, tugor normal, no rashes or lesions. Neurologic: Alert oriented x3 cranial nerves II through XII intact, no motor deficit, no abnormal balance or gait. ASSESSMENT AND PLAN: _Acute respiratory failure: Combination of congestive heart failure along with arrhythmia and left lower lobe pneumonia. Much better require 2 to 4 L of oxy gen only with less BiPAP at this point. _Left lower lobe pneumonia: CAT scan of the chest shows groundglass picture similar to atypical pneumonia or fibrosis. Continue with treated for pneumonia. _A flutter with rapid ventricular response: Still on metoprolol and amiodarone down to 100 mg doing much better. He is back having slightly tachycardia require Cardizem drip at 5 mg an hour which will be switched to oral. _Congestive heart failure acute with mild exacerbation mostly systolic dysfun ction the patient still acting wet with worsening heart failure with the advanced kidney failure at this point patient is not diuresing as well as expected end up having Cintron catheter because of urinary tension watching his urine output will be better. _Urinary retention: Continue alpha-amy and should be able to remove his Cintron catheter. _Advanced kidney failure mostly stage IV: Has improved significantly he is down to stage III chronic kidney disease does not require any dialysis continue hydration and continue to watch for any nephrotoxic agent. _Valvular heart disease: With severe mitral regurgitation and bio static aortic valve not well-visualized but size only 1.0 cm. Continue medical management for now need different type of echo for more active seen on the aortic valve. _Type 2 diabetes he was hypoglycemic this morning had to hold his short acting insulin, continue diet continue Accu-Chek with sliding scales coverage. _End-stage renal disease posttransplant remain on antirejection drugs will consult nephrology continue mycophenolate acid along with Prograf and still on prednisone 5 mg daily. Still making urine output does not require dialysis so far. _Stage IIIb chronic kidney disease posttransplant is doing much better with significant improvement in his kidney function. _Hypertension:_Has been on hydralazine 50 mg twice a day, amlodipine 10 mg daily, metoprolol titrate 50 mg 3 times a day. _Hyperlipidemia: Has been on Lipitor 40 mg a day currently medication. Urinary retention: Had Cintron catheter in. CODE STATUS: Full code. Prognosis: Fair Discussion: Was moved out of ICU will continue physical therapy and hopefully prepare for Home sometime in the next 48 hours. Objective - Vital Signs Vital signs: Vital Signs Temp 97.7 F 02/23/24 04:00 Pulse 119 H 02/23/24 04:00 Resp 20 02/23/24 04:00 BP 112/56 02/23/24 04:00 Pulse Ox 94 L 02/23/24 04:00 FiO2 40 02/22/24 05:00 Intake & Output 02/22/24 02/22/24 02/23/24 06:59 18:59 06:59 Intake Total 800 270 10 Output Total 660 1575 450 Balance 140 -1305 -440 Intake: IV 170 30 10 Normal Saline 120 30 10 cefTRIAXone 2 gm In 50 Sodium Chloride 0.9% 50 ml @ 100 mls/hr IVPB DAILY@2100 [facility] Rx#: [id number] Oral 390 240 Tube Feeding 240 Output: Urine 660 1575 450 Uretheral (Cintron) 450 Other: Voiding Method Indwelling Catheter Urinal Urinal # Voids 1 1 # Bowel Movements 1 - Labs CBC & Chem 7: 02/22/24 05:41 02/22/24 05:41 Labs: Abnormal Lab Results - Last 24 Hours (Table) 02/22/24 02/22/24 02/22/24 Range/Units 05:41 05:41 05:41 RBC 3.14 L (4.30-5.90) m/uL Hgb 8.9 L (13.0-17.5) gm/dL Hct 29.4 L (39.0-53.0) % MCHC 30.3 L (31.0-37.0) g/dL Chloride 109 H (98-107) mmol/L BUN 111 H* (9-20) mg/dL Creatinine 2.55 H (0.66-1.25) mg/dL Glucose 48 L* (74-99) mg/dL POC Glucose (mg/dL) (70-110) mg/dL Hemoglobin A1c 8.1 H (<=6.0) % 02/22/24 02/22/24 02/22/24 Range/Units 06:15 06:16 06:34 RBC (4.30-5.90) m/uL Hgb (13.0-17.5) gm/dL Hct (39.0-53.0) % MCHC (31.0-37.0) g/dL Chloride (98-107) mmol/L BUN (9-20) mg/dL Creatinine (0.66-1.25) mg/dL Glucose (74-99) mg/dL POC Glucose (mg/dL) 61 L 60 L 68 L (70-110) mg/dL Hemoglobin A1c (<=6.0) % 02/22/24 02/22/24 02/22/24 Range/Units 07:08 11:37 13:57 RBC (4.30-5.90) m/uL Hgb (13.0-17.5) gm/dL Hct (39.0-53.0) % MCHC (31.0-37.0) g/dL Chloride (98-107) mmol/L BUN (9-20) mg/dL Creatinine (0.66-1.25) mg/dL Glucose (74-99) mg/dL POC Glucose (mg/dL) 189 H 158 H 272 H (70-110) mg/dL Hemoglobin A1c (<=6.0) % 02/22/24 02/22/24 Range/Units 16:29 20:28 RBC (4.30-5.90) m/uL Hgb (13.0-17.5) gm/dL Hct (39.0-53.0) % MCHC (31.0-37.0) g/dL Chloride (98-107) mmol/L BUN (9-20) mg/dL Creatinine (0.66-1.25) mg/dL Glucose (74-99) mg/dL POC Glucose (mg/dL) 299 H 205 H (70-110) mg/dL Hemoglobin A1c (<=6.0) %
[2024-02-23] MEDS: INSULIN DETEMIR (LEVEMIR) 100 UNIT/ML SYR SQ SCH (09:10)
[2024-02-23 10:41] LABS: Basophils % (A) 0 %; Eosinophils # (A) 0.2 k/uL (0-0.7); Eosinophils % (A) 2 %; HCT 32.1 % (39.0-53.0); HGB 9.5 gm/dL (13.0-17.5); Hypochromasia Moderate; Lymphocytes % (A) 14 %; MCH 28.1 pg (25.0-35.0); MCHC 29.7 g/dL (31.0-37.0); MCV 94.7 fL (80.0-100.0); Mean Platelet Volume 8.4; Monocytes # (A) 0.5 k/uL (0-1.0); Monocytes % (A) 7 %; Neutrophils # (A) 5.3 k/uL (1.3-7.7); Neutrophils % (A) 74 %; Platelet Count 178 k/uL (150-450); RBC 3.39 m/uL (4.30-5.90); RDW 14.5 % (11.5-15.5); WBC 7.1 k/uL (3.8-10.6)
--- NOTE | 2024-02-23 11:05 | P.PN ---
Subjective Patient is seen in follow-up for acute kidney injury on chronic kidney disease and renal transplant management. Renal function better. Creatinine 2.55 yesterday. Nonoliguric. Denies chest pain or shortness of breath. Oral intake fair. Vital signs are stable. General: No acute distress. HEENT: Head exam is unremarkable. On nasal cannula. LUNGS: No audible rhonchi or wheezes. HEART: Irregular rate and rhythm. ABDOMEN: Nontender. EXTREMITITES: 1+ edema. Objective - Vital Signs Vital signs: Vital Signs Temp 97.7 F 02/23/24 04:00 Pulse 124 H 02/23/24 08:00 Resp 20 02/23/24 04:00 BP 112/56 02/23/24 04:00 Pulse Ox 91 L 02/23/24 08:00 FiO2 40 02/22/24 05:00 Intake & Output 02/22/24 02/23/24 02/23/24 18:59 06:59 18:59 Intake Total 270 10 0 Output Total 1575 450 500 Balance -2324 -890 -500 Intake: IV 30 10 Normal Saline 30 10 Oral 240 0 Output: Urine 1575 450 500 Uretheral (Cintron) 450 Other: Voiding Method Urinal Urinal # Voids 1 1 # Bowel Movements 1 - Labs CBC & Chem 7: 02/23/24 09:44 02/22/24 05:41 Labs: Abnormal Lab Results - Last 24 Hours (Table) 02/22/24 02/22/24 02/22/24 Range/Units 11:37 13:57 16:29 RBC (4.30-5.90) m/uL Hgb (13.0-17.5) gm/dL Hct (39.0-53.0) % MCHC (31.0-37.0) g/dL POC Glucose (mg/dL) 158 H 272 H 299 H (70-110) mg/dL 02/22/24 02/23/24 Range/Units 20:28 09:44 RBC 3.39 L (4.30-5.90) m/uL Hgb 9.5 L (13.0-17.5) gm/dL Hct 32.1 L (39.0-53.0) % MCHC 29.7 L (31.0-37.0) g/dL POC Glucose (mg/dL) 205 H (70-110) mg/dL Assessment and Plan Plan: Assessment: 1. Chronic kidney disease stage IIIb with baseline creatinine of 1.8 secondary to long-term calcineurin inhibitor use and solitary kidney. 2. Acute kidney injury secondary to ATN with creatinine at 3.47 in November 2023 in [place]. Renal function better. Creatinine 2.55 as of yesterday. 3. Acute hypoxic respiratory failure secondary to pneumonia. On antibiotics. 4. Status post donor renal transplant in [address] [facility] maintained on tacrolimus, Myfortic and prednisone. Tacrolimus level 4.7 dated February 17, 2024. 5. A-fib with RVR status post cardioversion. 6. Volume overload. 7. Metabolic acidosis secondary to acute kidney injury. Improved. 8. Anemia of chronic kidney disease. Iron deficiency noted. 9. Diabetes mellitus. 10. Acute on chronic diastolic CHF with moderate mitral regurgitation, tricuspid regurgitation and mild pulmonary hypertension. 11. A-fib with RVR maintained on Cardizem drip. Plan: Add IV Lasix 40 mg once daily. Maintain home antirejection meds. Goal Prograf level 4-6. Prograf level 4.7 dated February 17, 2024. Avoid nephrotoxins. Maintain IV iron. Continue to monitor renal function and urine output. Case discussed with [facility] transplant team February 22, 2024.
[2024-02-23 11:21] LABS: African American GFR (CKD) 38 (>60 ml/min/1.73 sqM); Anion Gap 3 mmol/L; Blood Urea Nitrogen 90 mg/dL (9-20); Calcium 9.7 mg/dL (8.4-10.2); Carbon Dioxide 26 mmol/L (22-30); Chloride 110 mmol/L (98-107); Glucose 125 mg/dL (74-99); Magnesium 2.1 mg/dL (1.6-2.3); Non-African American GFR(CKD) 33 (>60 ml/min/1.73 sqM); Potassium 4.5 mmol/L (3.5-5.1); Sodium 139 mmol/L (137-145)
[2024-02-23 11:23] LABS: Glucose,Whole Blood 138 mg/dL (70-110)
[2024-02-23] MEDS: FUROSEMIDE 10 MG/ML 4 ML VIAL IV SCH (12:26)
--- NOTE | 2024-02-23 14:57 | P.PN ---
Subjective Progress Note Date: 02/23/24 Paroxysmal atrial fibrillation The patient is a pleasant 68-year-old gentleman with coronary artery disease and paroxysmal atrial fibrillation and valvular heart disease with preserved LV systolic function as well as hypertension and dyslipidemia and chronic kidney disease status post kidney transplant was admitted to the hospital with a pneumonia and he was in A-fib with RVR and subsequently he underwent cardioversion 02/22 Patient has been transferred out of the intensive care unit and seen today on the cardiac stepdown unit. He states his breathing is much better today. Patient went back into A-fib with RVR last evening and is status post Cardizem bolus followed by drip at 5 mg/h. Heart rate is not controlled. 1 dose of IV Lasix 40 mg ordered by nephrology today. Blood pressure 128/62, heart rate 125. Chest x-ray reveals improving congestive heart failure. Physical Examination Gen: This is a 68-year-old male in no acute distress HEENT: Head is atraumatic, normocephalic. Pupils equal, round. Sclerae is anicteric. LUNGS: Diminished air entry without crackles or rhonchi. No intercostal retractions. HEART: First heart sound and second heart sounds. No gallop. Systolic ejection murmur at the right parasternal border and systolic murmur at the apex EXTREMITIES: No pedal edema. No calf tenderness Assessment Bilateral pneumonia Paroxysmal atrial fibrillation. Currently the patient is in sinus mechanism Renal failure Coronary artery disease Valvular heart disease Preserved LV systolic function Plan Continue patient on amiodarone 100 mg daily Continue Eliquis 2.5 mg twice daily Continue Cardizem drip at 5 mg/h and increase Lopressor to 50 mg 3 times daily Continue monitor the blood pressure and adjust the medications accordingly Monitor the kidney function and electrolytes Continue oral anticoagulation The patient is not in overt heart failure at this point Nurse practitioner note has been reviewed, I agree with documented findings and plan of care. Patient was seen and examined. Objective - Vital Signs Vital signs: Vital Signs Temp 97.7 F 02/23/24 04:00 Pulse 124 H 02/23/24 08:00 Resp 20 02/23/24 04:00 BP 112/56 02/23/24 04:00 Pulse Ox 91 L 02/23/24 08:00 FiO2 40 02/22/24 05:00 Intake & Output 02/22/24 02/23/24 02/23/24 18:59 06:59 18:59 Intake Total 270 10 0 Output Total 1575 450 500 Balance -4699 -376 -050 Intake: IV 30 10 Normal Saline 30 10 Oral 240 0 Output: Urine 1575 450 500 Uretheral (Cintron) 450 Other: Voiding Method Urinal Urinal # Voids 1 1 # Bowel Movements 1 - Labs CBC & Chem 7: 02/23/24 09:44 02/23/24 09:44 Labs: Abnormal Lab Results - Last 24 Hours (Table) 02/22/24 02/22/24 02/22/24 Range/Units 11:37 13:57 16:29 POC Glucose (mg/dL) 158 H 272 H 299 H (70-110) mg/dL 02/22/24 Range/Units 20:28 POC Glucose (mg/dL) 205 H (70-110) mg/dL
--- NOTE | 2024-02-23 15:06 | P.PN ---
Subjective Progress Note Date: 02/23/24 On today's evaluation of 02/21/2024, the patient is being seen for a follow-up. The patient remains in intensive care unit. The patient currently is on 6 L of oxygen by nasal cannula. Overnight, utilizing the BiPAP pressure of 12 over 5 cm of water. He continues to be on IV Rocephin and doxycycline treating an underlying pneumonia since admission. The most recent chest x-ray from today is showing stable interstitial bilateral pulmonary filtrates in addition to the right midlung opacity involving the minor fissure which could be an area of atelectasis or a loculated pleural effusion. The patient otherwise denies having any worsening in shortness of breath. The patient has limited congestion. No significant sputum production. He has sustained an acute kidney injury on top of his chronic stage IIIb chronic kidney disease. The patient is post renal transplantation that was done many years back and the patient remains on a combination of Prograf and low-dose steroids for immunosuppression. The patient also has a component of mild systolic congestive heart failure and atrial fibrillation/flutter and his heart rate is under better control with a combination of amiodarone and beta-blockers. He does have also valvular heart disease with severe mitral regurgitation and the patient has a bioprosthetic aortic valve along with history of diabetes mellitus type 2 maintained on Levemir insulin 35 units twice a day and NovoLog 4 units with meals and a sliding scale coverage. He has a Cintron catheter in place. Nephrology and cardiology are both on the case. The white cell count today is at 7.7 with a hemoglobin 9.6 and a platelet count of 203. BUN is 119 with a creatinine of 3.01 and a sodium levels at 136 with a potassium level of 5.0. The patient remains hemodynamically stable. Based on his ongoing respiratory failure and hypoxemia, a CAT scan of the chest was ordered for today. No altered mentation. Appetite is quite diminished. Oral intake is also diminished. I reviewed the echocardiogram and the patient has normal functioning bioprosthetic aortic valve without any stenosis. Noted the bioprosthetic aortic valve was not adequately visualized on echocardiogram. He also has moderate mitral regurgitation, pulmonary hypertension with a systolic pulmonary artery pressure estimated to be around 42 mmHg. The left ventricular ejection fraction is 50 to 55%. Remains on anticoagulation with Eliquis 2.5 mg twice a day. Remains on immunosuppression. No diuretics for now. In terms of fluid balance, the fluid balance has been -655 cc over the past 24 hours. The patient has undergone his reassessment patient [facility] [place] approximately 10 years ago. He has chronic stage III kidney disease along with hypertension hyperlipidemia and chronic neuropathy. He also has obstructive sleep apnea and mild peripheral vascular disease. At the time of admission, his proBNP level was quite elevated. He was also in atrial flutter at the time of admission with rapid ventricular response which ultimately improved and his rate is under better control for now. 02/22/2024, the patient is being seen for a follow-up. The patient is awake and alert and calm and comfortable on 4 L of oxygen by nasal cannula. Earlier this morning, the patient encountered an episode of hypoglycemia. He is typically running a lower blood sugar in the morning. Blood sugar was 48 and he was treated accordingly. He is also using the BiPAP overnight at a pressure of 12 over 5 cm for an FiO2 of 30%. In the morning, he is essentially on nasal cannula. CAT scan of the chest was done yesterday and showed small bilateral pleural effusions along with atelectatic changes in lung bases. There was also a right middle lobe atelectasis. No evidence of any pneumonia the patient remains on a combination of Rocephin and doxycycline. Renal function continues to improve and the creatinine is down to 2.5 with a BUN of 111. Sodium levels at 138 and a bicarb level is at 25. The white cell count is at 7.6 with a hemoglobin 8.9 and a platelet count of 197. He is alert and awake and communicating. No other significant events overnight. He is currently on a combination of Prograf 1 mg twice a day and prednisone 5 mg p.o. daily and is also on mycophenolate 360 mg p.o. twice a day. On 02/23/2024, the patient is being seen for a follow-up. The patient got moved out of the intensive care unit yesterday. The patient has a stable respiratory status and the patient remains on oxygen 4 L/min nasal cannula. Pulse ox in the order of 97%. Earlier this morning, the patient went into A-fib RVR and the patient was started on Cardizem drip at 5 mg an hour. A repeat chest x-ray was done this morning and it showed improvement in CHF findings. The patient continues to produce urine output. The patient has a BUN of 19 and a creatinine of 2.02 and her renal function continues to improve. The serum bicarb is at 26. Sodium is at 139, WBC count is at 7.1 with a hemoglobin of 9.5 and a platelet count of 178. The patient remains on [facility]. The patient is currently on amiodarone 100 mg p.o. daily and metoprolol 50 mg p.o. 3 times daily and the patient is also anticoagulated with Eliquis. Immunosuppression is in a combination of mycophenolate, tacrolimus and low-dose prednisone. The patient is also on Lasix 40 mg IV every 24 hours. Renal function continues to improve. Objective - Vital Signs Vital signs: Vital Signs Temp 97.7 F 02/23/24 04:00 Pulse 124 H 02/23/24 08:00 Resp 20 02/23/24 04:00 BP 112/56 02/23/24 04:00 Pulse Ox 91 L 02/23/24 08:00 FiO2 40 02/22/24 05:00 Intake & Output 02/22/24 02/23/24 02/23/24 18:59 06:59 18:59 Intake Total 270 10 0 Output Total 1575 450 500 Balance -1305 -440 -500 Intake: IV 30 10 Normal Saline 30 10 Oral 240 0 Output: Urine 1575 450 500 Uretheral (Cintron) 450 Other: Voiding Method Urinal Urinal # Voids 1 1 # Bowel Movements 1 - Exam No acute distress, much improved, currently on nasal O2, at 4 L of oxygen by nasal cannula Head exam was generally normal. There was no scleral icterus or corneal arcus. Mucous membranes were moist. HEENT examination is grossly unremarkable. Mucous membranes are moist. No oral lesions. Neck supple. Full range of motion. No adenopathy thyromegaly or neck vein dis tention. Cardiovascular examination reveals an regular rhythm and rate. S1-S2 normal. No S3 or S4. Systolic ejection murmur grade 4/6 heard throughout the precordium including left lateral sternal border and apex. Lungs reveal bilateral coarse rhonchi. Basilar crackles are noted. No wheezes. Breath sounds are equal bilaterally. Abdomen obese, but without tenderness. Extremities are intact. No signs or clubbing. There is 1+ edema. Skin is without rash or lesion. Neurologic examination is brief but nonfocal. - Labs CBC & Chem 7: 02/23/24 09:44 02/23/24 09:44 Labs: Abnormal Lab Results - Last 24 Hours (Table) 02/22/24 02/22/24 02/22/24 Range/Units 11:37 13:57 16:29 RBC (4.30-5.90) m/uL Hgb (13.0-17.5) gm/dL Hct (39.0-53.0) % MCHC (31.0-37.0) g/dL POC Glucose (mg/dL) 158 H 272 H 299 H (70-110) mg/dL 02/22/24 02/23/24 Range/Units 20:28 09:44 RBC 3.39 L (4.30-5.90) m/uL Hgb 9.5 L (13.0-17.5) gm/dL Hct 32.1 L (39.0-53.0) % MCHC 29.7 L (31.0-37.0) g/dL POC Glucose (mg/dL) 205 H (70-110) mg/dL Assessment and Plan Plan: Acute hypoxemic respiratory failure, likely multifactorial, in part related to atrial fibrillation/flutter with RVR, CHF/fluid overload, and possible pneumo deandra. Currently on 4 liters. The chest x-ray is consistent with interstitial bilateral pulm infiltrates, new opacity in the right midlung and possibly a small bilateral pleural effusions. No clear indication of pneumonia based on the CAT scan findings. The patient has right midlung atelectasis and small bilateral pleural effusions consistent with CHF and fluid overload. His oxygenation is stable at 4 L O2 nasal cannula and the patient lysing the BiPAP overnight. Overall respiratory status is stable and the patient remains on 4 L. Urine output is adequate and the patient creatinine continues to improve. A flutter with rapid ventricular response at time of admission the patient is S/P transesophageal echocardiogram, and cardioversion, February 17, 2024. Rate is controlled for now and the patient remains on amiodarone and metoprolol and the patient is also on anticoagulation with Eliquis. The patient is having paroxysmal atrial fibrillation. Earlier this morning, the patient developed left ventricular response and the patient is currently on Cardizem drip at 5 mg an hour. Rest of the medications remain unchanged. History of kidney transplantation, 2013, at [facility] [place]. The patient has chronic stage III kidney disease. NATE on top of chronic stage III kidney disease and the creatinine is improving, adequate urine output CAD , Previous bypass grafting, 2019, [facility]. Preserved LV function with an ejection fraction of 50 to 55% along with valvular heart disease and moderate MR, aortic valve is bioprosthetic and functioning adequately at this point in time based on the most and echocardiogram. Moderate MR, preserved LV History of hypertension. History of hyperlipidemia. History of diabetes mellitus type II maintained on Levemir insulin 35 units twice a day along with NovoLog 4 units with meals and sliding scale coverage. History of gout. History of CVA, at age 42. Peripheral vascular disease Plan Titrate FiO2 to maintain saturation above 90%. Currently on 4 L Creatinine continues to improve Monitor renal function CAT scan of the chest was noted consistent with bilateral pleural effusion right midlung atelectasis, And the follow-up chest x-ray shows improvement in the volume status and CHF findings Echocardiogram was noted Avoid nephrotoxic agents Continue Prograf and prednisone at the low-dose and the patient is also on myco phenolate Cardizem drip at 5 mg an hour in combination with amiodarone and metoprolol. Patient is also anticoagulated with Eliquis. Solar Consultant on the case. Nephrology on the case Encouraged to use of incentive spirometer Keep the patient on the medical surgical floor
[2024-02-23] MEDS ORDERED: METOPROLOL TARTRATE 25 MG TAB PO SCH (16:00)
[2024-02-23] MEDS: METOPROLOL TARTRATE 50 MG TAB PO SCH (16:03)
[2024-02-23 16:26] LABS: Glucose,Whole Blood 138 mg/dL (70-110)
[2024-02-23 20:59] LABS: Glucose,Whole Blood 94 mg/dL (70-110)
[2024-02-24 02:31] LABS: Glucose,Whole Blood 62 mg/dL (70-110)
[2024-02-24 03:26] LABS: Glucose,Whole Blood 86 mg/dL (70-110)
[2024-02-24 05:54] LABS: Glucose,Whole Blood 63 mg/dL (70-110)
[2024-02-24 06:20] LABS: Glucose,Whole Blood 80 mg/dL (70-110)
[2024-02-24] MEDS: METOPROLOL TARTRATE 50 MG TAB PO SCH (08:01)
[2024-02-24] MEDS: DILTIAZEM CD 120 MG CAP.ER.24H PO SCH (09:59)
[2024-02-24 11:09] LABS: Glucose,Whole Blood 106 mg/dL (70-110)
[2024-02-24 11:18] LABS: African American GFR (CKD) 45 (>60 ml/min/1.73 sqM); Anion Gap 1 mmol/L; Blood Urea Nitrogen 67 mg/dL (9-20); Calcium 9.5 mg/dL (8.4-10.2); Carbon Dioxide 30 mmol/L (22-30); Chloride 107 mmol/L (98-107); Glucose 83 mg/dL (74-99); Non-African American GFR(CKD) 39 (>60 ml/min/1.73 sqM); Potassium 4.2 mmol/L (3.5-5.1); Sodium 138 mmol/L (137-145)
--- NOTE | 2024-02-24 12:20 | P.PN ---
Subjective Patient is seen in follow-up for acute kidney injury on chronic kidney disease and renal transplant management. Renal function better. Nonoliguric. Denies chest pain or shortness of breath. Oral intake fair. Off Cardizem drip. Vital signs are stable. General: No acute distress. HEENT: Head exam is unremarkable. On nasal cannula. LUNGS: No audible rhonchi or wheezes. HEART: Irregular rate and rhythm. ABDOMEN: Nontender. EXTREMITITES: 1+ edema. Objective - Vital Signs Vital signs: Vital Signs Temp 97.6 F 02/24/24 04:00 Pulse 120 H 02/24/24 11:21 Resp 17 02/24/24 11:21 BP 116/60 02/24/24 11:21 Pulse Ox 97 02/24/24 11:21 FiO2 40 02/22/24 05:00 Intake & Output 02/23/24 02/24/24 02/24/24 18:59 06:59 18:59 Intake Total 222 120 118 Output Total 1901 800 Balance -5823 -680 118 Weight 93.5 kg Intake: Oral 222 120 118 Output: Urine 1900 800 Stool 1 Other: Voiding Method Urinal Urinal Urinal # Voids 1 # Bowel Movements 1 - Labs CBC & Chem 7: 02/23/24 09:44 02/24/24 09:28 Labs: Abnormal Lab Results - Last 24 Hours (Table) 02/23/24 02/24/24 02/24/24 Range/Units 16:22 02:28 05:53 BUN (9-20) mg/dL Creatinine (0.66-1.25) mg/dL POC Glucose (mg/dL) 138 H 62 L 63 L (70-110) mg/dL 02/24/24 Range/Units 09:28 BUN 67 H (9-20) mg/dL Creatinine 1.77 H (0.66-1.25) mg/dL POC Glucose (mg/dL) (70-110) mg/dL Assessment and Plan Plan: Assessment: 1. Chronic kidney disease stage IIIb with baseline creatinine of 1.8 secondary to long-term calcineurin inhibitor use and solitary kidney. 2. Acute kidney injury secondary to ATN with creatinine at 3.47 in November 2023 in [place]. Renal function better. Creatinine 1.77 today. 3. Acute hypoxic respiratory failure secondary to pneumonia. On antibiotics. 4. Status post donor renal transplant in 2013 at [facility] maintained on tacrolimus, Myfortic and prednisone. Tacrolimus level 4.7 dated February 17, 2024. 5. A-fib with RVR status post cardioversion. 6. Volume overload. 7. Metabolic acidosis secondary to acute kidney injury. Improved. 8. Anemia of chronic kidney disease. Iron deficiency noted. 9. Diabetes mellitus. 10. Acute on chronic diastolic CHF with moderate mitral regurgitation, tricuspid regurgitation and mild pulmonary hypertension. 11. A-fib with RVRnow on oral meds. Cardiology following.. Plan: Maintain IV Lasix. Maintain home antirejection meds. Goal Prograf level 4-6. Prograf level 4.7 dated February 17, 2024. Avoid nephrotoxins. Maintain IV iron. Stop oral bicarb. Continue to monitor renal function and urine output. Case discussed with [facility] transplant team February 22, 2024.
--- NOTE | 2024-02-24 14:09 | P.PN ---
Subjective Progress Note Date: 02/24/24 On today's evaluation of 02/21/2024, the patient is being seen for a follow-up. The patient remains in intensive care unit. The patient currently is on 6 L of oxygen by nasal cannula. Overnight, utilizing the BiPAP pressure of 12 over 5 cm of water. He continues to be on IV Rocephin and doxycycline treating an underlying pneumonia since admission. The most recent chest x-ray from today is showing stable interstitial bilateral pulmonary filtrates in addition to the right midlung opacity involving the minor fissure which could be an area of atelectasis or a loculated pleural effusion. The patient otherwise denies having any worsening in shortness of breath. The patient has limited congestion. No significant sputum production. He has sustained an acute kidney injury on top of his chronic stage IIIb chronic kidney disease. The patient is post renal transplantation that was done many years back and the patient remains on a combination of Prograf and low-dose steroids for immunosuppression. The patient also has a component of mild systolic congestive heart failure and atrial fibrillation/flutter and his heart rate is under better control with a combination of amiodarone and beta-blockers. He does have also valvular heart disease with severe mitral regurgitation and the patient has a bioprosthetic aortic valve along with history of diabetes mellitus type 2 maintained on Levemir insulin 35 units twice a day and NovoLog 4 units with meals and a sliding scale coverage. He has a Cintron catheter in place. Nephrology and cardiology are both on the case. The white cell count today is at 7.7 with a hemoglobin 9.6 and a platelet count of 203. BUN is 119 with a creatinine of 3.01 and a sodium levels at 136 with a potassium level of 5.0. The patient remains hemodynamically stable. Based on his ongoing respiratory failure and hypoxemia, a CAT scan of the chest was ordered for today. No altered mentation. Appetite is quite diminished. Oral intake is also diminished. I reviewed the echocardiogram and the patient has normal functioning bioprosthetic aortic valve without any stenosis. Noted the bioprosthetic aortic valve was not adequately visualized on echocardiogram. He also has moderate mitral regurgitation, pulmonary hypertension with a systolic pulmonary artery pressure estimated to be around 42 mmHg. The left ventricular ejection fraction is 50 to 55%. Remains on anticoagulation with Eliquis 2.5 mg twice a day. Remains on immunosuppression. No diuretics for now. In terms of fluid balance, the fluid balance has been -655 cc over the past 24 hours. The patient has undergone his reassessment patient [facility] [place][note 2] approximately 10 years ago. He has chronic stage III kidney disease along with hypertension hyperlipidemia and chronic neuropathy. He also has obstructive sleep apnea and mild peripheral vascular disease. At the time of admission, his proBNP level was quite elevated. He was also in atrial flutter at the time of admission with rapid ventricular response which ultimately improved and his rate is under better control for now. 02/22/2024, the patient is being seen for a follow-up. The patient is awake and alert and calm and comfortable on 4 L of oxygen by nasal cannula. Earlier this morning, the patient encountered an episode of hypoglycemia. He is typically running a lower blood sugar in the morning. Blood sugar was 48 and he was treated accordingly. He is also using the BiPAP overnight at a pressure of 12 over 5 cm for an FiO2 of 30%. In the morning, he is essentially on nasal cannula. CAT scan of the chest was done yesterday and showed small bilateral pleural effusions along with atelectatic changes in lung bases. There was also a right middle lobe atelectasis. No evidence of any pneumonia the patient remains on a combination of Rocephin and doxycycline. Renal function continues to improve and the creatinine is down to 2.5 with a BUN of 111. Sodium levels at 138 and a bicarb level is at 25. The white cell count is at 7.6 with a hemoglobin 8.9 and a platelet count of 197. He is alert and awake and communicating. No other significant events overnight. He is currently on a combination of Prograf 1 mg twice a day and prednisone 5 mg p.o. daily and is also on mycophenolate 360 mg p.o. twice a day. On 02/23/2024, the patient is being seen for a follow-up. The patient got moved out of the intensive care unit yesterday. The patient has a stable respiratory status and the patient remains on oxygen 4 L/min nasal cannula. Pulse ox in the order of 97%. Earlier this morning, the patient went into A-fib RVR and the patient was started on Cardizem drip at 5 mg an hour. A repeat chest x-ray was done this morning and it showed improvement in CHF findings. The patient continues to produce urine output. The patient has a BUN of 19 and a creatinine of 2.02 and her renal function continues to improve. The serum bicarb is at 26. Sodium is at 139, WBC count is at 7.1 with a hemoglobin of 9.5 and a platelet count of 178. The patient remains on [facility]. The patient is currently on amiodarone 100 mg p.o. daily and metoprolol 50 mg p.o. 3 times daily and the patient is also anticoagulated with Eliquis. Immunosuppression is in a combination of mycophenolate, tacrolimus and low-dose prednisone. The patient is also on Lasix 40 mg IV every 24 hours. Renal function continues to improve. 02/24/2024, the patient is doing well. No specific complaints. No major respiratory distress on today's evaluation. Note that the patient's creatinine continues to improve. Creatinine is down to 1.77 with a BUN of 67. Rest of the electrolytes are essentially within normal limits. Chest x-ray was also improving. The patient has paroxysmal atrial fibrillation. The patient has been on amiodarone 100 mg p.o. daily, metoprolol 75 mg p.o. 3 times daily and anticoagulation with Eliquis. Remains on Levemir insulin. Remains on immunosuppression treatment. Afebrile. Oxygenation is also stable and the patient is currently on 2 L with a pulse ox of 97%. Objective - Vital Signs Vital signs: Vital Signs Temp 97.6 F 02/24/24 04:00 Pulse 125 H 02/24/24 08:50 Resp 17 02/24/24 07:51 BP 118/70 02/24/24 07:51 Pulse Ox 90 L 02/24/24 08:39 FiO2 40 02/22/24 05:00 Intake & Output 02/23/24 02/24/24 02/24/24 18:59 06:59 18:59 Intake Total 222 120 118 Output Total 1901 800 Balance -9206 -890 118 Weight 93.5 kg Intake: Oral 222 120 118 Output: Urine 1900 800 Stool 1 Other: Voiding Method Urinal Urinal Urinal # Voids 1 # Bowel Movements 1 - Exam No acute distress, much improved, currently on nasal O2, at 2 L of oxygen by nasal cannula Head exam was generally normal. There was no scleral icterus or corneal arcus. Mucous membranes were moist. HEENT examination is grossly unremarkable. Mucous membranes are moist. No oral lesions. Neck supple. Full range of motion. No adenopathy thyromegaly or neck vein distention. Cardiovascular examination reveals an regular rhythm and rate. S1-S2 normal. No S3 or S4. Systolic ejection murmur grade 4/6 heard throughout the precordium including left lateral sternal border and apex. Lungs reveal bilateral coarse rhonchi. Basilar crackles are noted. No wheezes. Breath sounds are equal bilaterally. Abdomen obese, but without tenderness. Extremities are intact. No signs or clubbing. There is 1+ edema. Skin is without rash or lesion. Neurologic examination is brief but nonfocal. - Labs CBC & Chem 7: 02/23/24 09:44 02/24/24 09:28 Labs: Abnormal Lab Results - Last 24 Hours (Table) 02/23/24 02/23/24 02/23/24 Range/Units 09:44 09:44 11:21 RBC 3.39 L (4.30-5.90) m/uL Hgb 9.5 L (13.0-17.5) gm/dL Hct 32.1 L (39.0-53.0) % MCHC 29.7 L (31.0-37.0) g/dL Chloride 110 H (98-107) mmol/L BUN 90 H (9-20) mg/dL Creatinine 2.02 H (0.66-1.25) mg/dL Glucose 125 H (74-99) mg/dL POC Glucose (mg/dL) 138 H (70-110) mg/dL 02/23/24 02/24/24 02/24/24 Range/Units 16:22 02:28 05:53 RBC (4.30-5.90) m/uL Hgb (13.0-17.5) gm/dL Hct (39.0-53.0) % MCHC (31.0-37.0) g/dL Chloride (98-107) mmol/L BUN (9-20) mg/dL Creatinine (0.66-1.25) mg/dL Glucose (74-99) mg/dL POC Glucose (mg/dL) 138 H 62 L 63 L (70-110) mg/dL Assessment and Plan Plan: Acute hypoxemic respiratory failure, likely multifactorial, in part related to atrial fibrillation/flutter with RVR, CHF/fluid overload, and possible pneumonia. Currently on 4 liters. The chest x-ray is consistent with interstitial bilateral pulm infiltrates, new opacity in the right midlung and possibly a small bilateral pleural effusions. No clear indication of pneumonia based on the CAT scan findings. The patient has right midlung atelectasis and small bilateral pleural effusions consistent with CHF and fluid overload. His oxygenation chest x-ray is also improving. Renal function continues to improve. has improved and the patient is currently on 2 L of oxygen nasal cannula. A flutter with rapid ventricular response at time of admission the patient is S/P transesophageal echocardiogram, and cardioversion, February 17, 2024. Rate is controlled for now and the patient remains on amiodarone and metoprolol and the patient is also on anticoagulation with Eliquis. History of kidney transplantation, 2013, at [facility] [place][note 2]. The patient has chronic stage III kidney disease. NATE on top of chronic stage III kidney disease and the creatinine is improving, adequate urine output, creatinine continues to improve and is currently down to 1.7 CAD , Previous bypass grafting, 2019, [facility]. Preserved LV function with an ejection fraction of 50 to 55% along with valvular heart disease and moderate MR, aortic valve is bioprosthetic and functioning adequately at this point in time based on the most and echocardiogram. Moderate MR, preserved LV History of hypertension. History of hyperlipidemia. History of diabetes mellitus type II maintained on Levemir insulin 35 units twice a day along with NovoLog 4 units with meals and sliding scale coverage. History of gout. History of CVA, at age 42. Peripheral vascular disease Plan Titrate FiO2 to maintain saturation above 90%. Currently on 2 L nasal cannula Creatinine continues to improve Monitor renal function CAT scan of the chest was noted consistent with bilateral pleural effusion right midlung atelectasis, And the follow-up chest x-ray shows improvement in the volume status and CHF findings Echocardiogram was noted Avoid nephrotoxic agents Continue Prograf and prednisone at the low-dose and the patient is also on mycophenolate Continue amiodarone and metoprolol. Patient is also anticoagulated with Eliquis. Java Software Developer on the case. Nephrology on the case Encouraged to use of incentive spirometer
--- NOTE | 2024-02-24 14:21 | P.PN ---
Subjective Progress Note Date: 02/24/24 Paroxysmal atrial fibrillation The patient is a pleasant 68-year-old gentleman with coronary artery disease and paroxysmal atrial fibrillation and valvular heart disease with preserved LV systolic function as well as hypertension and dyslipidemia and chronic kidney disease status post kidney transplant was admitted to the hospital with a pneumonia and he was in A-fib with RVR and subsequently he underwent cardioversion 02/22 Patient has been transferred out of the intensive care unit and seen today on the cardiac stepdown unit. He states his breathing is much better today. Patient went back into A-fib with RVR last evening and is status post Cardizem bolus followed by drip at 5 mg/h. Heart rate is not controlled. 1 dose of IV Lasix 40 mg ordered by nephrology today. Blood pressure 128/62, heart rate 125. Chest x-ray reveals improving congestive heart failure. 02/23 Telemetry is atrial fibrillation with RVR. Patient has been maintained on Cardizem drip with continued elevated heart rates. Attending has increase Lopressor to 75 mg 3 times daily. Nephrology started patient on Lasix 40 mg IV daily as of yesterday. Patient continues to have lower extremity edema. Blood pressure 116/60, heart rate 126. Renal function is improving with BUN 67 creatinine 1.77. Physical Examination Gen: This is a 68-year-old male in no acute distress HEENT: Head is atraumatic, normocephalic. Pupils equal, round. Sclerae is anicteric. LUNGS: Diminished air entry without crackles or rhonchi. No intercostal retractions. HEART: First heart sound and second heart sounds. No gallop. Systolic ejection murmur at the right parasternal border and systolic murmur at the apex EXTREMITIES: No pedal edema. No calf tenderness Assessment Bilateral pneumonia Paroxysmal atrial fibrillation. Currently the patient is in sinus mechanism Renal failure Coronary artery disease Valvular heart disease Preserved LV systolic function Acute on chronic diastolic heart failure Plan Continue patient on amiodarone 100 mg daily Continue Eliquis 2.5 mg twice daily Discontinue Cardizem drip and start oral Cardizem CD1 120 mg daily, continue increased dose of Lopressor 75 mg 3 times daily Continue monitor the blood pressure and adjust the medications accordingly Monitor the kidney function and electrolytes Continue oral anticoagulation with Eliquis Nurse practitioner note has been reviewed, I agree with documented findings and plan of care. Patient was seen and examined. Objective - Vital Signs Vital signs: Vital Signs Temp 97.6 F 02/24/24 04:00 Pulse 126 H 02/24/24 13:17 Resp 17 02/24/24 11:21 BP 116/60 02/24/24 11:21 Pulse Ox 97 02/24/24 11:21 FiO2 40 02/22/24 05:00 Intake & Output 02/23/24 02/24/24 02/24/24 18:59 06:59 18:59 Intake Total 222 120 118 Output Total 1901 800 400 Balance -8418 -680 -282 Weight 93.5 kg Intake: Oral 222 120 118 Output: Urine 1900 800 400 Stool 1 Other: Voiding Method Urinal Urinal Urinal # Voids 1 # Bowel Movements 1 - Labs CBC & Chem 7: 02/23/24 09:44 02/24/24 09:28 Labs: Abnormal Lab Results - Last 24 Hours (Table) 02/23/24 02/24/24 02/24/24 Range/Units 16:22 02:28 05:53 BUN (9-20) mg/dL Creatinine (0.66-1.25) mg/dL POC Glucose (mg/dL) 138 H 62 L 63 L (70-110) mg/dL 02/24/24 Range/Units 09:28 BUN 67 H (9-20) mg/dL Creatinine 1.77 H (0.66-1.25) mg/dL POC Glucose (mg/dL) (70-110) mg/dL
[2024-02-24 16:12] LABS: Glucose,Whole Blood 204 mg/dL (70-110)
[2024-02-24 20:27] LABS: Glucose,Whole Blood 344 mg/dL (70-110)
[2024-02-24 22:25] VITALS: RESP 18
--- NOTE | 2024-02-25 05:40 | P.PN ---
Subjective Progress Note Date: 02/24/24 HISTORY OF PRESENT ILLNESS: 68-year-old office patient with active medical history of atherosclerotic heart disease post CABG, end-stage renal disease post renal transplant at [facility] over 10 years ago, chronic stage IIIb kidney disease, hypertension, hyperlipidemia, chronic neuropathy, obesity, obstructive sleep apnea, mild peripheral arterial disease, who was back at [facility] few months ago for worsening kidney function was hospitalized for few days. He was not in the office on 02/14/2024 with complaining of severe dyspnea and shortness of b reath with cough productive phlegm not been able to lay down flat mild fluid overload with worsening PND and orthopnea was having significant tachypnea and tachycardia with hypoxia. Pulse ox was less than 90 percentile looks the same time and failure but might have double pneumonia. Patient was sent to the emergency room at [facility] where was seen and evaluated Surprisingly h is hemoglobin came back at 10.1 with white blood cell 6.0 creatinine 1.87 close to the last creatinine he has before leaving [facility] a few months ago his blood sugar was elevated at 264 with mildly elevated troponin 0.069 BNP 8 6620. His EKG from the office and from the emergency department showed atrial flutter with pulse rate running at 142 bpm quite irregular. Chest x-ray shows l eft lower lung airspace opacification correlate with pneumonia and mild congestive heart failure as well. Patient was started on IV antibiotics with ceftriaxone 2 g Cardizem drip was started to bring his pulse rate down not helpful or successful at the time. Consult cardiology and pulmonary patient admitted to the hospital. 02/16/2024: The patient remained extremely sick require to be move on to BiPAP, was transferred to the intensive care unit still tachycardic with pulse rate around 140 bpm close schedule initially to go for cardioversion after transesophageal echocardiogram but with his respiratory failure on BiPAP not able to do this today patient is not stable continue current management for now patient manage higher dose of Cardizem was not started on amiodarone yet. Still have significant pulmonary edema being on diuretics 4. Much worsening kidney function compared to before and BNP still elevated. Continue to be treated for left lower lobe pneumonia there is transthoracic echocardiogram showed severely increased left ventricular wall thickening with left ventricular ejection fraction of 50-55 percentile with moderate mitral regurgitation who has b ioprosthetic aortic valve not well-visualized with his valve area is only 1 cm.. Please continue on azithromycin and Rocephin for possible pneumonia left-sided: Heparin drip and Cardizem drip at this point does not require any vasopressor. Will continue to stabilize patient hopefully pulse rate will drop down to be more stable to be cardioversion eventually will continue BiPAP continue ICU management. 02/17/2024: Patient is off BiPAP today pulse rate is 120s still in a flutter, plan with cardiology to do transesophageal echocardiogram and if there is no thrombus is given the going for cardioversion today. Still on IV antibiotics, still on high flow oxygen at this point was started on amiodarone 5 to bring his pulse rate down little bit. His kidney function slightly was down from before with creatinine up to 2.63. Continue to make good urine output so far. My fear with his transesophageal echocardiogram or any testing that he has an extremely severe spinal stenosis and problem with his cervical spine second third and fourth we have just to be careful tilting his neck backwards specially required intubation. Patient shortness of breath has been much better and is not having any chest pain today. Remain in ICU require more help still seen nephrology inside intensive care pulmonary and cardiology. 02/18/2024: He had cardioversion yesterday successfully after transesophageal echocardiogram and seems still to be running in the 70s, was on amiodarone drip which was stopped today because of declining kidney function. He is GFR down significantly with bun up to 19 creatinine 3.50. His shortness of breath had significantly decreased. Patient is still making good urine output does not need any hemodialysis at this point. He is on 3 L of O2 able to talk comfortably today hemoglobin is down to 8.9 electrolytes are better with exception of creatinine. Patient remain in the ICU for the next 24 hours. Treatment for his pneumonia still with IV and hide currently seems to be successful patient is doing well. 02/19/2024: Patient has 1 more shortness of breath today he is using BiPAP, slightly worsening kidney function with bun 102 creatinine 3.53, mildly elevated blood sugar, hemoglobin is down to 9.0 platelet count 200. Continue empiric IV antibiotics remain on Rocephin 2 g IV daily still on doxycycline as well. Amiodarone was decreased to 200 mg daily with pulse rates under control pulse still irregular since cardioversion. Despite worsening kidney function patient is still making good urine output. Blood sugar has been slightly better. No further chest pain or angina at this point, metoprolol was reduced to 25 mg twice a day still on Eliquis 2.5 mg twice a day as well. His blood pressure is slightly better. 02/20/2024: Still in the ICU hide use of BiPAP through the night felt slightly b vanda, his A-fib still under control on metoprolol down to 25 mg twice a day still on amiodarone 200 mg daily, blood pressure was elevated amlodipine was added 5 mg daily. He is blood work today with his creatinine down to 3.37 and bun at 111 hemoglobin down to 8.8 does not require blood transfusion no thrombocytopenia. Blood pressure is well-controlled pulse oximetry 93 percentile and 6 L, he spent the night and drum carrier on BiPAP with 50% oxygen. Patient is awake alert interactive not symptomatic today still having slight shortness of breath dyspnea no chest pain. His pneumonia still treated with Rocephin and doxycycline culture was completely negative. Chest x-ray repeated today still showing interstitial finding consistent with more heart failure and the left lobe still have significant infiltrate. 02/21/2024: Patient remained on BiPAP all night, still out of breath, kidney f unction is still down significantly. A-fib is much better with pulse rates in the 60s and 70s but is still on amiodarone 200 mg a day orally hoping to get him off amiodarone completely one of the nephrotoxic agent he is on specially if cardiology believe can maintain patient on beta-amy to keep a pulse rate under control. His infection and infiltrate has improved some continue on antibiotics. Urine output still up as well the patient is not to any degree close to dialysis at this point. Still on his antirejection drug for his transplant. Patient still sick I believe he needs to stay in the ICU another day. 02/22/2024: Patient is off BiPAP he is breathing better this morning he still fe eling he is quite good shortness of breath, chest x-ray from this morning shows less water retention congestive heart failure compared to the previous 1, also patient had a CAT scan of the lung sure the ground glass picture similar to mild fibrosis may be this is atypical pneumonitis as for the pneumonia infiltrate much better. His kidney function has improved compared to yesterday he is down on amiodarone to 100 mg a day which seem had helped quite bit his pulse is still in the 60s regular. Patient still critically ill and required to be in the ICU. 02/23/2024: Patient was moved out of the ICU yesterday, has been settling down in his room, had use of BiPAP partially through the night but much better today compared to yesterday. His kidney function is improving gradually does not require any dialysis at this point. Still seen multi subspecialist between pulmonary, cardiology and nephrology. His A-fib remains slightly but active and he is back on Cardizem 5 mg an hour his oral medication should be adjusted today. Patient will initiate physical therapy and have psychiatric social worker supervisor work whether he needs to go somewhere for rehab or he can benefit from going home with physical therapy at home. He works at the [employer] and believe he is going back early next week which I do not think this is possible at this point. 02/24/2024: He is feeling much better, significant improving kidney function compared to before, oxygenation off O2 has been above 90 percentile, BUN is down to 67 with creatinine 1.77, mobility has been increased slight bed moving him off of bed to chair and doing physical therapy. Chest x-ray is improved significantly as well. Nephrology wanted him still to continue on IV Lasix avoid nephrotoxic maintain IV iron and stop oral bicarbonate continue to monitor urine output and oral intake at least for the next 24 more hours. Also cardiology standpoint his heart rate is much better continue amiodarone 100 mg, Eliquis 2.5 mg twice a day his Cardizem drip is off and oral metoprolol tartrate was up to 75 mg 3 times a day which patient seems to do well with it th at way he was little bit bradycardic at this point. REVIEW OF SYSTEMS: CONSTITUTIONAL: Morbid obesity and mild respiratory distress. EYES: No icterus sclerae, no conjunctivitis. EARS, NOSE, MOUTH, THROAT, and FACE: No sore throat, lymphadenopathy, carotid bruits or deformity. RESPIRATORY: Positive shortness of breath cough or wheezes. CARDIOVASCULAR: Positive PND orthopnea palpitation. GASTROINTESTINAL: No Abd pain, Nausea or vomiting, no pain or constipation, No GI Bleed, no distention or masses. GENITOURINARY: No polyuria nocturia without any hematuria. INTEGUMENT/BREAST: Negative for any muscular injury with mild osteoarthritis.. HEMATOLOGIC/LYMPHATIC: Chronic anemia with no bleeding. MUSCULOSKELTAL: Negative for Myalgia or arthralgia. NEURLOGICAL: No LOC, Sz or syncope, blurred vision dizziness or abnormality.. BEHAVIORAL/PSYCH: Negative. ENDOCRINE: Negative. PHYSICAL EXAMINATION: General Appearance: Overweight in mild respiratory distress. Neck HEENT: Supple, no lymphadenopathy, no thyroid enlargement, no carotid bruits. Lungs: Decreased breath sound bilaterally especially the left side with fine rhonchi positive crackles in the bases positive mild inspiratory expiratory wheezes. Chest Wall: Decreased expansion with deep inspiration no tenderness and no deformity was found on exam, no costochondral pain or discomfort. Heart: Irregular rate and rhythm, S1, S2 positive S3 positive PVCs. Back: Symmetric, no curvature, ROM normal, no CVA tenderness. Abdomen: Soft, non-tender, bowel sounds active all four quadrants, no masses, no organomegaly. Extremities: Extremities normal, atraumatic, no cyanosis positive edema. Pulses: 2+ and symmetric. Skin: Skin color, texture, tugor normal, no rashes or lesions. Neurologic: Alert oriented x3 cranial nerves II through XII intact, no motor deficit, no abnormal balance or gait. ASSESSMENT AND PLAN: _Acute respiratory failure: Combination of congestive heart failure along with arrhythmia and left lower lobe pneumonia. Continue improvement is off BiPAP and hardly on any oxygen continue updraft treatment still on oral antibiotics and oral prednisone. _Left lower lobe pneumonia: Continue prednisone orally back to his baseline at 5 mg a day, he is off antibiotics treatment was extended beyond 7 days so far. _Advanced kidney failure mostly stage IV: Has improved significantly he is down to stage III chronic kidney disease does not require any dialysis continue hydration and continue to watch for any nephrotoxic agent. Still see nephrology regularly and try to manage his antirejection drugs from day-to-day basis. _End-stage renal disease posttransplant remain on antirejection drugs will consult nephrology continue mycophenolate acid along with Prograf and still on prednisone 5 mg daily. Still making urine output does not require dialysis so far. Watching Prograf every 2 days. _A flutter with rapid ventricular response: He was switched to oral medication metoprolol up to 75 mg 3 times a day, Cardizem CD8 120 mg daily and Eliquis 2.5 mg twice a day patient seems to do well with medication. _Congestive heart failure acute with mild exacerbation mostly systolic dysfunc tion the patient still acting wet with worsening heart failure patient still on IV furosemide will continue to watch kidney function with any extra medication still on beta-amy, hydralazine 25 mg scheduled if needed can benefit from isosorbide as well. _Urinary retention: Remove Cintron catheter at this point continue to measure urine output carefully. _Valvular heart disease: With severe mitral regurgitation and bio static aortic valve not well-visualized but size only 1.0 cm. Continue medical management for now need different type of echo for more active seen on the aortic valve. _Type 2 diabetes he was hypoglycemic this morning had to hold his short acting insulin, continue diet continue Accu-Chek with sliding scales coverage. _Hypertension:_Has been on hydralazine 50 mg twice a day, amlodipine 10 mg daily, metoprolol titrate 50 mg 3 times a day. _Hyperlipidemia: Has been on Lipitor 40 mg a day currently medication. Debility: Start and increase physical therapy patient believes he wants to go home he does not want to go anywhere but will initiate physical therapy and cons ider home health care when he discharged home. CODE STATUS: Full code. Prognosis: Fair Discussion: Doing much better so far off IV drip for Cardizem pulse rate is much better, chest x-ray has significant improvement kidney functions improving gradually. Objective - Vital Signs Vital signs: Vital Signs Temp 97.7 F 02/25/24 04:00 Pulse 124 H 02/25/24 04:00 Resp 18 02/25/24 04:00 BP 119/71 02/25/24 04:00 Pulse Ox 96 02/25/24 04:00 FiO2 40 02/22/24 05:00 Intake & Output 02/24/24 02/24/24 02/25/24 06:59 18:59 06:59 Intake Total 120 118 840 Output Total 800 400 600 Balance -680 -282 240 Weight 93.5 kg Intake: Oral 120 118 840 Output: Urine 800 400 600 Other: Voiding Method Urinal Urinal Urinal # Voids 1 - Labs CBC & Chem 7: 02/23/24 09:44 02/24/24 09:28 Labs: Abnormal Lab Results - Last 24 Hours (Table) 02/24/24 02/24/24 02/24/24 Range/Units 05:53 09:28 16:11 BUN 67 H (9-20) mg/dL Creatinine 1.77 H (0.66-1.25) mg/dL POC Glucose (mg/dL) 63 L 204 H (70-110) mg/dL 02/24/24 Range/Units 20:25 BUN (9-20) mg/dL Creatinine (0.66-1.25) mg/dL POC Glucose (mg/dL) 344 H (70-110) mg/dL
[2024-02-25 05:52] LABS: Glucose,Whole Blood 173 mg/dL (70-110)
[2024-02-25 08:32] LABS: HCT 31.7 % (39.0-53.0); HGB 9.3 gm/dL (13.0-17.5); Hypochromasia Marked; MCH 27.7 pg (25.0-35.0); MCHC 29.3 g/dL (31.0-37.0); MCV 94.5 fL (80.0-100.0); Mean Platelet Volume 8.9; Platelet Count 170 k/uL (150-450); RBC 3.36 m/uL (4.30-5.90); RDW 14.7 % (11.5-15.5); WBC 7.8 k/uL (3.8-10.6)
[2024-02-25 09:04] VITALS: TEMP 97.5
[2024-02-25 09:07] LABS: ALT 23 U/L (4-49); AST 23 U/L (17-59); African American GFR (CKD) 40 (>60 ml/min/1.73 sqM); Albumin 2.6 g/dL (3.5-5.0); Alkaline Phosphatase 74 U/L (38-126); Anion Gap 2 mmol/L; Blood Urea Nitrogen 63 mg/dL (9-20); Calcium 9.5 mg/dL (8.4-10.2); Carbon Dioxide 31 mmol/L (22-30); Chloride 106 mmol/L (98-107); Glucose 132 mg/dL (74-99); Non-African American GFR(CKD) 35 (>60 ml/min/1.73 sqM); Potassium 4.5 mmol/L (3.5-5.1); Sodium 139 mmol/L (137-145); Total Bilirubin 0.6 mg/dL (0.2-1.3); Total Protein 5.2 g/dL (6.3-8.2)
[2024-02-25] MEDS: AMIODARONE 100 MG TAB PO STA (09:57)
--- NOTE | 2024-02-25 10:39 | P.PN ---
Subjective Patient is seen in follow-up for acute kidney injury on chronic kidney disease and renal transplant management. Renal function little worse compared to yesterday. On IV Lasix. Nonoliguric. Denies chest pain or shortness of breath. Oral intake fair. Off Cardizem drip. Vital signs are stable. General: No acute distress. HEENT: Head exam is unremarkable. On nasal cannula. LUNGS: No audible rhonchi or wheezes. HEART: Irregular rate and rhythm. ABDOMEN: Nontender. EXTREMITITES: 1+ edema. Objective - Vital Signs Vital signs: Vital Signs Temp 97.5 F L 02/25/24 08:15 Pulse 78 02/25/24 10:06 Resp 18 02/25/24 10:06 BP 127/58 02/25/24 08:15 Pulse Ox 94 L 02/25/24 08:28 FiO2 40 02/22/24 05:00 Intake & Output 02/24/24 02/25/24 02/25/24 18:59 06:59 18:59 Intake Total 118 840 240 Output Total 400 700 Balance -282 140 240 Weight 96 kg Intake: Oral 118 840 240 Output: Urine 400 700 Other: Voiding Method Urinal Urinal Urinal # Voids 1 - Labs CBC & Chem 7: 02/25/24 08:08 02/25/24 08:08 Labs: Abnormal Lab Results - Last 24 Hours (Table) 02/24/24 02/24/24 02/24/24 Range/Units 09:28 16:11 20:25 RBC (4.30-5.90) m/uL Hgb (13.0-17.5) gm/dL Hct (39.0-53.0) % MCHC (31.0-37.0) g/dL Carbon Dioxide (22-30) mmol/L BUN 67 H (9-20) mg/dL Creatinine 1.77 H (0.66-1.25) mg/dL Glucose (74-99) mg/dL POC Glucose (mg/dL) 204 H 344 H (70-110) mg/dL Total Protein (6.3-8.2) g/dL Albumin (3.5-5.0) g/dL 02/25/24 02/25/24 02/25/24 Range/Units 05:50 08:08 08:08 RBC 3.36 L (4.30-5.90) m/uL Hgb 9.3 L (13.0-17.5) gm/dL Hct 31.7 L (39.0-53.0) % MCHC 29.3 L (31.0-37.0) g/dL Carbon Dioxide 31 H (22-30) mmol/L BUN 63 H (9-20) mg/dL Creatinine 1.95 H (0.66-1.25) mg/dL Glucose 132 H (74-99) mg/dL POC Glucose (mg/dL) 173 H (70-110) mg/dL Total Protein 5.2 L (6.3-8.2) g/dL Albumin 2.6 L (3.5-5.0) g/dL Assessment and Plan Plan: Assessment: 1. Chronic kidney disease stage IIIb with baseline creatinine of 1.8 secondary to long-term calcineurin inhibitor use and solitary kidney. 2. Acute kidney injury secondary to ATN with creatinine at 3.47 in November 2023 in [place]. Renal function slightly worse compared to yesterday. Creatinine 1.95. 3. Acute hypoxic respiratory failure secondary to pneumonia. On antibiotics. 4. Status post donor renal transplant in [address] [facility] maintained on tacrolimus, Myfortic and prednisone. Tacrolimus level 4.7 dated February 17, 2024. 5. A-fib with RVR status post cardioversion. On oral Cardizem and amiodarone. 6. Volume overload. 7. Metabolic acidosis secondary to acute kidney injury. Resolved. Improved with diuresis. 8. Anemia of chronic kidney disease. Iron deficiency noted. 9. Diabetes mellitus. 10. Acute on chronic diastolic CHF with moderate mitral regurgitation, tricuspid regurgitation and mild pulmonary hypertension. Plan: Stop IV Lasix. Add torsemide 20 mg once daily. Maintain home antirejection meds. Goal Prograf level 4-6. Prograf level 4.7 dated February 17, 2024. Avoid nephrotoxins. Maintain IV iron. Continue to monitor renal function and urine output. Case discussed with [facility] transplant team February 22, 2024.
[2024-02-25 11:23] LABS: Glucose,Whole Blood 189 mg/dL (70-110)
--- NOTE | 2024-02-25 11:50 | P.PN ---
Subjective Progress Note Date: 02/25/24 Paroxysmal atrial fibrillation The patient is a pleasant 68-year-old gentleman with coronary artery disease and paroxysmal atrial fibrillation and valvular heart disease with preserved LV systolic function as well as hypertension and dyslipidemia and chronic kidney disease status post kidney transplant was admitted to the hospital with a pneumonia and he was in A-fib with RVR and subsequently he underwent cardioversion 02/22 Patient has been transferred out of the intensive care unit and seen today on the cardiac stepdown unit. He states his breathing is much better today. Patient went back into A-fib with RVR last evening and is status post Cardizem bolus followed by drip at 5 mg/h. Heart rate is not controlled. 1 dose of IV Lasix 40 mg ordered by nephrology today. Blood pressure 128/62, heart rate 125. Chest x-ray reveals improving congestive heart failure. 02/23 Telemetry is atrial fibrillation with RVR. Patient has been maintained on Cardizem drip with continued elevated heart rates. Attending has increase Lopressor to 75 mg 3 times daily. Nephrology started patient on Lasix 40 mg IV daily as of yesterday. Patient continues to have lower extremity edema. Blood pressure 116/60, heart rate 126. Renal function is improving with BUN 67 creatinine 1.77. 02/24 Patient's heart rate was elevated in the 120s throughout the night and now is running in the 80s in atrial fibrillation. He is scheduled for discharge home today and is very anxious to go. Blood pressure 127/58, pulse ox 94% on 2 L nasal cannula. Repeat blood work reveals hemoglobin of 9.3. BUN 63 creatinine 1.95. Potassium 4.5. Physical Examination Gen: This is a 68-year-old male in no acute distress HEENT: Head is atraumatic, normocephalic. Pupils equal, round. Sclerae is anicteric. LUNGS: Diminished air entry without crackles or rhonchi. No intercostal retractions. HEART: First heart sound and second heart sounds. No gallop. Systolic ejection murmur at the right parasternal border and systolic murmur at the apex EXTREMITIES: No pedal edema. No calf tenderness Assessment Bilateral pneumonia Paroxysmal atrial fibrillation. Currently the patient is in sinus mechanism Renal failure Coronary artery disease Valvular heart disease Preserved LV systolic function Acute on chronic diastolic heart failure Plan Continue patient on amiodarone 100 mg daily which will be increased to 200 mg daily Continue Eliquis 2.5 mg twice daily Continue oral Cardizem CD 120 mg daily, Lopressor 75 mg 3 times daily Patient is cleared for discharge from cardiology and may follow-up in the office in 1 to 2 weeks. Nurse practitioner note has been reviewed, I agree with documented findings and plan of care. Patient was seen and examined. Objective - Vital Signs Vital signs: Vital Signs Temp 97.5 F L 02/25/24 08:15 Pulse 110 H 02/25/24 08:34 Resp 18 02/25/24 08:15 BP 127/58 02/25/24 08:15 Pulse Ox 94 L 02/25/24 08:28 FiO2 40 02/22/24 05:00 Intake & Output 02/24/24 02/25/24 02/25/24 18:59 06:59 18:59 Intake Total 118 840 240 Output Total 400 700 Balance -282 140 240 Weight 96 kg Intake: Oral 118 840 240 Output: Urine 400 700 Other: Voiding Method Urinal Urinal # Voids 1 - Labs CBC & Chem 7: 02/25/24 08:08 02/25/24 08:08 Labs: Abnormal Lab Results - Last 24 Hours (Table) 02/24/24 02/24/24 02/24/24 Range/Units 09:28 16:11 20:25 RBC (4.30-5.90) m/uL Hgb (13.0-17.5) gm/dL Hct (39.0-53.0) % MCHC (31.0-37.0) g/dL BUN 67 H (9-20) mg/dL Creatinine 1.77 H (0.66-1.25) mg/dL POC Glucose (mg/dL) 204 H 344 H (70-110) mg/dL 02/25/24 02/25/24 Range/Units 05:50 08:08 RBC 3.36 L (4.30-5.90) m/uL Hgb 9.3 L (13.0-17.5) gm/dL Hct 31.7 L (39.0-53.0) % MCHC 29.3 L (31.0-37.0) g/dL BUN (9-20) mg/dL Creatinine (0.66-1.25) mg/dL POC Glucose (mg/dL) 173 H (70-110) mg/dL
[2024-02-25 12:02] VITALS: BP 117/65; PULSE 126
--- NOTE | 2024-02-25 13:40 | P.PN ---
Subjective Progress Note Date: 02/25/24 On today's evaluation of 02/21/2024, the patient is being seen for a follow-up. The patient remains in intensive care unit. The patient currently is on 6 L of oxygen by nasal cannula. Overnight, utilizing the BiPAP pressure of 12 over 5 cm of water. He continues to be on IV Rocephin and doxycycline treating an underlying pneumonia since admission. The most recent chest x-ray from today is showing stable interstitial bilateral pulmonary filtrates in addition to the right midlung opacity involving the minor fissure which could be an area of atelectasis or a loculated pleural effusion. The patient otherwise denies having any worsening in shortness of breath. The patient has limited congestion. No significant sputum production. He has sustained an acute kidney injury on top of his chronic stage IIIb chronic kidney disease. The patient is post renal transplantation that was done many years back and the patient remains on a combination of Prograf and low-dose steroids for immunosuppression. The patient also has a component of mild systolic congestive heart failure and atrial fibrillation/flutter and his heart rate is under better control with a combination of amiodarone and beta-blockers. He does have also valvular heart disease with severe mitral regurgitation and the patient has a bioprosthetic aortic valve along with history of diabetes mellitus type 2 maintained on Levemir insulin 35 units twice a day and NovoLog 4 units with meals and a sliding scale coverage. He has a Cintron catheter in place. Nephrology and cardiology are both on the case. The white cell count today is at 7.7 with a hemoglobin 9.6 and a platelet count of 203. BUN is 119 with a creatinine of 3.01 and a sodium levels at 136 with a potassium level of 5.0. The patient remains hemodynamically stable. Based on his ongoing respiratory failure and hypoxemia, a CAT scan of the chest was ordered for today. No altered mentation. Appetite is quite diminished. Oral intake is also diminished. I reviewed the echocardiogram and the patient has normal functioning bioprosthetic aortic valve without any stenosis. Noted the bioprosthetic aortic valve was not adequately visualized on echocardiogram. He also has moderate mitral regurgitation, pulmonary hypertension with a systolic pulmonary artery pressure estimated to be around 42 mmHg. The left ventricular ejection fraction is 50 to 55%. Remains on anticoagulation with Eliquis 2.5 mg twice a day. Remains on immunosuppression. No diuretics for now. In terms of fluid balance, the fluid balance has been -655 cc over the past 24 hours. The patient has undergone his reassessment patient [facility] approximately 10 years ago. He has chronic stage III kidney disease along with hypertension hyperlipidemia and chronic neuropathy. He also has obstructive sleep apnea and mild peripheral vascular disease. At the time of admission, his proBNP level was quite elevated. He was also in atrial flutter at the time of admission with rapid ventricular response which ultimately improved and his rate is under better control for now. 02/22/2024, the patient is being seen for a follow-up. The patient is awake and alert and calm and comfortable on 4 L of oxygen by nasal cannula. Earlier this morning, the patient encountered an episode of hypoglycemia. He is typically running a lower blood sugar in the morning. Blood sugar was 48 and he was treated accordingly. He is also using the BiPAP overnight at a pressure of 12 over 5 cm for an FiO2 of 30%. In the morning, he is essentially on nasal cannula. CAT scan of the chest was done yesterday and showed small bilateral pleural effusions along with atelectatic changes in lung bases. There was also a right middle lobe atelectasis. No evidence of any pneumonia the patient remains on a combination of Rocephin and doxycycline. Renal function continues to improve and the creatinine is down to 2.5 with a BUN of 111. Sodium levels at 138 and a bicarb level is at 25. The white cell count is at 7.6 with a hemoglobin 8.9 and a platelet count of 197. He is alert and awake and communicating. No other significant events overnight. He is currently on a combination of Prograf 1 mg twice a day and prednisone 5 mg p.o. daily and is also on mycophenolate 360 mg p.o. twice a day. On 02/23/2024, the patient is being seen for a follow-up. The patient got moved out of the intensive care unit yesterday. The patient has a stable respiratory status and the patient remains on oxygen 4 L/min nasal cannula. Pulse ox in the order of 97%. Earlier this morning, the patient went into A-fib RVR and the patient was started on Cardizem drip at 5 mg an hour. A repeat chest x-ray was done this morning and it showed improvement in CHF findings. The patient continues to produce urine output. The patient has a BUN of 19 and a creatinine of 2.02 and her renal function continues to improve. The serum bicarb is at 26. Sodium is at 139, WBC count is at 7.1 with a hemoglobin of 9.5 and a platelet count of 178. The patient remains on [facility]. The patient is currently on amiodarone 100 mg p.o. daily and metoprolol 50 mg p.o. 3 times daily and the patient is also anticoagulated with Eliquis. Immunosuppression is in a combination of mycophenolate, tacrolimus and low-dose prednisone. The patient is also on Lasix 40 mg IV every 24 hours. Renal function continues to improve. 02/24/2024, the patient is doing well. No specific complaints. No major respiratory distress on today's evaluation. Note that the patient's creatinine continues to improve. Creatinine is down to 1.77 with a BUN of 67. Rest of the electrolytes are essentially within normal limits. Chest x-ray was also improving. The patient has paroxysmal atrial fibrillation. The patient has been on amiodarone 100 mg p.o. daily, metoprolol 75 mg p.o. 3 times daily and anticoagulation with Eliquis. Remains on Levemir insulin. Remains on immunosuppression treatment. Afebrile. Oxygenation is also stable and the patient is currently on 2 L with a pulse ox of 97%. 02/25/2024, the patient is on room air oxygen. No significant respiratory difficulties. He is having ongoing issues with atrial fibrillation. The patient is being seen by cardiology. The heart rate is around 120 used to be quite elevated at this point in time. The patient is on amiodarone 100 mg p.o. daily and this was increased up to 200 mg and he remains on anticoagulation with Eliquis 2.5 mg p.o. daily. He continues to be on Cardizem 120 mg daily and metoprolol 75 mg 3 times daily. Renal function is stable. Creatinine is down to 1.95 with a BUN of 63 and sodium levels at 136. Hemoglobin is at 9.3. Re sal on immunosuppression. Completed his course of antibiotics. Remains on Levemir insulin 40 units a day in the morning and 30 units in the evening. He is also on sliding scale insulin coverage. Objective - Vital Signs Vital signs: Vital Signs Temp 97.5 F L 02/25/24 08:15 Pulse 78 02/25/24 10:06 Resp 18 02/25/24 10:06 BP 127/58 02/25/24 08:15 Pulse Ox 94 L 02/25/24 08:28 FiO2 40 02/22/24 05:00 Intake & Output 02/24/24 02/25/24 02/25/24 18:59 06:59 18:59 Intake Total 118 840 240 Output Total 400 700 Balance -282 140 240 Weight 96 kg Intake: Oral 118 840 240 Output: Urine 400 700 Other: Voiding Method Urinal Urinal Urinal # Voids 1 - Exam No acute distress, much improved, currently on nasal O2, at 2 L of oxygen by nasal cannula Head exam was generally normal. There was no scleral icterus or corneal arcus. Mucous membranes were moist. HEENT examination is grossly unremarkable. Mucous membranes are moist. No oral lesions. Neck supple. Full range of motion. No adenopathy thyromegaly or neck vein distention. Cardiovascular examination reveals an regular rhythm and rate. S1-S2 normal. No S3 or S4. Systolic ejection murmur grade 4/6 heard throughout the precordium including left lateral sternal border and apex. Lungs reveal bilateral coarse rhonchi. Basilar crackles are noted. No wheezes. Breath sounds are equal bilaterally. Abdomen obese, but without tenderness. Extremities are intact. No signs or clubbing. There is 1+ edema. Skin is without rash or lesion. Neurologic examination is brief but nonfocal. - Labs CBC & Chem 7: 02/25/24 08:08 02/25/24 08:08 Labs: Abnormal Lab Results - Last 24 Hours (Table) 02/24/24 02/24/24 02/24/24 Range/Units 09:28 16:11 20:25 RBC (4.30-5.90) m/uL Hgb (13.0-17.5) gm/dL Hct (39.0-53.0) % MCHC (31.0-37.0) g/dL Carbon Dioxide (22-30) mmol/L BUN 67 H (9-20) mg/dL Creatinine 1.77 H (0.66-1.25) mg/dL Glucose (74-99) mg/dL POC Glucose (mg/dL) 204 H 344 H (70-110) mg/dL Total Protein (6.3-8.2) g/dL Albumin (3.5-5.0) g/dL 02/25/24 02/25/24 02/25/24 Range/Units 05:50 08:08 08:08 RBC 3.36 L (4.30-5.90) m/uL Hgb 9.3 L (13.0-17.5) gm/dL Hct 31.7 L (39.0-53.0) % MCHC 29.3 L (31.0-37.0) g/dL Carbon Dioxide 31 H (22-30) mmol/L BUN 63 H (9-20) mg/dL Creatinine 1.95 H (0.66-1.25) mg/dL Glucose 132 H (74-99) mg/dL POC Glucose (mg/dL) 173 H (70-110) mg/dL Total Protein 5.2 L (6.3-8.2) g/dL Albumin 2.6 L (3.5-5.0) g/dL Assessment and Plan Plan: Acute hypoxemic respiratory failure, likely multifactorial, in part related to atrial fibrillation/flutter with RVR, CHF/fluid overload, and possible pneumonia. The patient is currently on room air oxygen. No clear indication for pneumonia at this point in time and he completed a course of antibiotics. A flutter with rapid ventricular response at time of admission the patient is S/P transesophageal echocardiogram, and cardioversion, February 17, 2024. Rate is controlled for now and the patient remains on amiodarone and metoprolol and the patient is also on anticoagulation with Eliquis. The patient is on amiodarone 200 mg p.o. daily, Cardizem 120 mg p.o. daily and metoprolol 75 mg p.o. 3 times daily. History of kidney transplantation, 2013, at [facility]. The patient has chronic stage III kidney disease. NATE on top of chronic stage III kidney disease and the creatinine is improving, adequate urine output, creatinine continues to improve and is currently down to 0.9 CAD , Previous bypass grafting, 2019, [facility]. Preserved LV function with an ejection fraction of 50 to 55% along with valvular heart disease and moderate MR, aortic valve is bioprosthetic and functioning adequately at this point in time based on the most and echocardiogram. Moderate MR, preserved LV History of hypertension. History of hyperlipidemia. History of diabetes mellitus type II maintained on Levemir insulin 35 units twice a day along with NovoLog 4 units with meals and sliding scale coverage. History of gout. History of CVA, at age 42. Peripheral vascular disease Plan Patient currently on room air oxygen Creatinine stable at 1.9 Monitor renal function CAT scan of the chest was noted consistent with bilateral pleural effusion right midlung atelectasis, And the follow-up chest x-ray shows improvement in the volume status and CHF findings Echocardiogram was noted Avoid nephrotoxic agents Continue Prograf and prednisone at the low-dose and the patient is also on mycophenolate Continue amiodarone and metoprolol and Cardizem. Patient is also anticoagulated with Eliquis. 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 Nephrology on the case Encouraged to use of incentive spirometer
--- NOTE | 2024-02-25 16:18 | P.PN ---
Subjective Progress Note Date: 02/25/24 HISTORY OF PRESENT ILLNESS: 68-year-old office patient with active medical history of atherosclerotic heart disease post CABG, end-stage renal disease post renal transplant at [facility] over 10 years ago, chronic stage IIIb kidney disease, hypertension, hyperlipidemia, chronic neuropathy, obesity, obstructive sleep apnea, mild peripheral arterial disease, who was back at [facility] few months ago for worsening kidney function was hospitalized for few days. He was not in the office on 02/14/2024 with complaining of severe dyspnea and shortness of b reath with cough productive phlegm not been able to lay down flat mild fluid overload with worsening PND and orthopnea was having significant tachypnea and tachycardia with hypoxia. Pulse ox was less than 90 percentile looks the same time and failure but might have double pneumonia. Patient was sent to the emergency room at [facility] where was seen and evaluated Surprisingly h is hemoglobin came back at 10.1 with white blood cell 6.0 creatinine 1.87 close to the last creatinine he has before leaving [facility] a few months ago his blood sugar was elevated at 264 with mildly elevated troponin 0.069 BNP 8 6620. His EKG from the office and from the emergency department showed atrial flutter with pulse rate running at 142 bpm quite irregular. Chest x-ray shows l eft lower lung airspace opacification correlate with pneumonia and mild congestive heart failure as well. Patient was started on IV antibiotics with ceftriaxone 2 g Cardizem drip was started to bring his pulse rate down not helpful or successful at the time. Consult cardiology and pulmonary patient admitted to the hospital. 02/16/2024: The patient remained extremely sick require to be move on to BiPAP, was transferred to the intensive care unit still tachycardic with pulse rate around 140 bpm close schedule initially to go for cardioversion after transesophageal echocardiogram but with his respiratory failure on BiPAP not able to do this today patient is not stable continue current management for now patient manage higher dose of Cardizem was not started on amiodarone yet. Still have significant pulmonary edema being on diuretics 4. Much worsening kidney function compared to before and BNP still elevated. Continue to be treated for left lower lobe pneumonia there is transthoracic echocardiogram showed severely increased left ventricular wall thickening with left ventricular ejection fraction of 50-55 percentile with moderate mitral regurgitation who has b ioprosthetic aortic valve not well-visualized with his valve area is only 1 cm.. Please continue on azithromycin and Rocephin for possible pneumonia left-sided: Heparin drip and Cardizem drip at this point does not require any vasopressor. Will continue to stabilize patient hopefully pulse rate will drop down to be more stable to be cardioversion eventually will continue BiPAP continue ICU management. 02/17/2024: Patient is off BiPAP today pulse rate is 120s still in a flutter, plan with cardiology to do transesophageal echocardiogram and if there is no thrombus is given the going for cardioversion today. Still on IV antibiotics, still on high flow oxygen at this point was started on amiodarone 5 to bring his pulse rate down little bit. His kidney function slightly was down from before with creatinine up to 2.63. Continue to make good urine output so far. My fear with his transesophageal echocardiogram or any testing that he has an extremely severe spinal stenosis and problem with his cervical spine second third and fourth we have just to be careful tilting his neck backwards specially required intubation. Patient shortness of breath has been much better and is not having any chest pain today. Remain in ICU require more help still seen nephrology inside intensive care pulmonary and cardiology. 02/18/2024: He had cardioversion yesterday successfully after transesophageal echocardiogram and seems still to be running in the 70s, was on amiodarone drip which was stopped today because of declining kidney function. He is GFR down significantly with bun up to 19 creatinine 3.50. His shortness of breath had significantly decreased. Patient is still making good urine output does not need any hemodialysis at this point. He is on 3 L of O2 able to talk comfortably today hemoglobin is down to 8.9 electrolytes are better with exception of creatinine. Patient remain in the ICU for the next 24 hours. Treatment for his pneumonia still with IV and hide currently seems to be successful patient is doing well. 02/19/2024: Patient has 1 more shortness of breath today he is using BiPAP, slightly worsening kidney function with bun 102 creatinine 3.53, mildly elevated blood sugar, hemoglobin is down to 9.0 platelet count 200. Continue empiric IV antibiotics remain on Rocephin 2 g IV daily still on doxycycline as well. Amiodarone was decreased to 200 mg daily with pulse rates under control pulse still irregular since cardioversion. Despite worsening kidney function patient is still making good urine output. Blood sugar has been slightly better. No further chest pain or angina at this point, metoprolol was reduced to 25 mg twice a day still on Eliquis 2.5 mg twice a day as well. His blood pressure is slightly better. 02/20/2024: Still in the ICU hide use of BiPAP through the night felt slightly b vanda, his A-fib still under control on metoprolol down to 25 mg twice a day still on amiodarone 200 mg daily, blood pressure was elevated amlodipine was added 5 mg daily. He is blood work today with his creatinine down to 3.37 and bun at 111 hemoglobin down to 8.8 does not require blood transfusion no thrombocytopenia. 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 Patient is awake alert interactive not symptomatic today still having slight shortness of breath dyspnea no chest pain. His pneumonia still treated with Rocephin and doxycycline culture was completely negative. Chest x-ray repeated today still showing interstitial finding consistent with more heart failure and the left lobe still have significant infiltrate. 02/21/2024: Patient remained on BiPAP all night, still out of breath, kidney f unction is still down significantly. A-fib is much better with pulse rates in the 60s and 70s but is still on amiodarone 200 mg a day orally hoping to get him off amiodarone completely one of the nephrotoxic agent he is on specially if cardiology believe can maintain patient on beta-amy to keep a pulse rate under control. His infection and infiltrate has improved some continue on antibiotics. Urine output still up as well the patient is not to any degree close to dialysis at this point. Still on his antirejection drug for his transplant. Patient still sick I believe he needs to stay in the ICU another day. 02/22/2024: Patient is off BiPAP he is breathing better this morning he still fe eling he is quite good shortness of breath, chest x-ray from this morning shows less water retention congestive heart failure compared to the previous 1, also patient had a CAT scan of the lung sure the ground glass picture similar to mild fibrosis may be this is atypical pneumonitis as for the pneumonia infiltrate much better. His kidney function has improved compared to yesterday he is down on amiodarone to 100 mg a day which seem had helped quite bit his pulse is still in the 60s regular. Patient still critically ill and required to be in the ICU. 02/23/2024: Patient was moved out of the ICU yesterday, has been settling down in his room, had use of BiPAP partially through the night but much better today compared to yesterday. His kidney function is improving gradually does not require any dialysis at this point. Still seen multi subspecialist between pulmonary, cardiology and nephrology. His A-fib remains slightly but active and he is back on Cardizem 5 mg an hour his oral medication should be adjusted today. Patient will initiate physical therapy and have director of social work work whether he needs to go somewhere for rehab or he can benefit from going home with physical therapy at home. He works at the [employer] and believe he is going back early next week which I do not think this is possible at this point. 02/24/2024: He is feeling much better, significant improving kidney function compared to before, oxygenation off O2 has been above 90 percentile, BUN is down to 67 with creatinine 1.77, mobility has been increased slight bed moving him off of bed to chair and doing physical therapy. Chest x-ray is improved significantly as well. Nephrology wanted him still to continue on IV Lasix avoid nephrotoxic maintain IV iron and stop oral bicarbonate continue to monitor urine output and oral intake at least for the next 24 more hours. Also cardiology standpoint his heart rate is much better continue amiodarone 100 mg, Eliquis 2.5 mg twice a day his Cardizem drip is off and oral metoprolol tartrate was up to 75 mg 3 times a day which patient seems to do well with it th at way he was little bit bradycardic at this point. 02/21/2024: Patient is doing very well, His lab value today showing hemoglobin of 9.3 with hematocrit 31.7, his BUN 63 with creatinine 1.95 fluctuating with GFR around 35-39. His pulse rate was great in the morning at 78 bpm AV, slightly but excited with the discharge and where to go to and how to manage it he become with slight tachycardia without having any symptoms related to it his pulse rate subtle around 80-110 still in A-fib and slightly irregular but doing well with no symptoms. Is seen nephrology today who agreed to add torsemide 20 mg daily instead of his furosemide to maintain his antirejection medication and avoid nephrotoxic ma intain IV iron and continue to monitor renal function and urine output and case discussed with [facility] transplant team on February 22, 2024 agree with the current plan management. Also was seen by pulmonary he is breathing room air does not require any oxygen at this point. He is having ongoing issues with A-fib and patient being seen by cardiology his heart rates 120 patient is on amiodarone 100 mg a day was increased to 200 mg remain on anticoagulation with Eliquis 2.5 mg twice a day still on Cardizem 120 mg daily along with metoprolol titrate 75 mg 3 times a day. His blood sugar running well he is remain on Levemir 40 units in the morning 30 units in the evening and NovoLog per sliding scales coverage will get him back to his regular routine. After struggle with the discharge and patient was very stubborn and wants to go home initially with help refuse rehab finally agreeable after trial with his family and physical therapy that he needed more help is going to [facility] rehab. Discharge will be done today and afternoon. REVIEW OF SYSTEMS: CONSTITUTIONAL: Morbid obesity and mild respiratory distress. EYES: No icterus sclerae, no conjunctivitis. EARS, NOSE, MOUTH, THROAT, and FACE: No sore throat, lymphadenopathy, carotid bruits or deformity. RESPIRATORY: Positive shortness of breath cough or wheezes. CARDIOVASCULAR: Positive PND orthopnea palpitation. GASTROINTESTINAL: No Abd pain, Nausea or vomiting, no pain or constipation, No GI Bleed, no distention or masses. GENITOURINARY: No polyuria nocturia without any hematuria. INTEGUMENT/BREAST: Negative for any muscular injury with mild osteoarthritis.. HEMATOLOGIC/LYMPHATIC: Chronic anemia with no bleeding. MUSCULOSKELTAL: Negative for Myalgia or arthralgia. NEURLOGICAL: No LOC, Sz or syncope, blurred vision dizziness or abnormality.. BEHAVIORAL/PSYCH: Negative. ENDOCRINE: Negative. PHYSICAL EXAMINATION: General Appearance: Overweight in mild respiratory distress. Neck HEENT: Supple, no lymphadenopathy, no thyroid enlargement, no carotid bruits. Lungs: Decreased breath sound bilaterally especially the left side with fine rhonchi positive crackles in the bases positive mild inspiratory expiratory wheezes. Chest Wall: Decreased expansion with deep inspiration no tenderness and no deformity was found on exam, no costochondral pain or discomfort. Heart: Irregular rate and rhythm, S1, S2 positive S3 positive PVCs. Back: Symmetric, no curvature, ROM normal, no CVA tenderness. Abdomen: Soft, non-tender, bowel sounds active all four quadrants, no masses, no organomegaly. Extremities: Extremities normal, atraumatic, no cyanosis positive edema. Pulses: 2+ and symmetric. Skin: Skin color, texture, tugor normal, no rashes or lesions. Neurologic: Alert oriented x3 cranial nerves II through XII intact, no motor deficit, no abnormal balance or gait. ASSESSMENT AND PLAN: _Acute respiratory failure: Combination of congestive heart failure along with arrhythmia and left lower lobe pneumonia. Continue improvement is off BiPAP and hardly on any oxygen continue updraft treatment still on oral antibiotics and oral prednisone. _Left lower lobe pneumonia: Continue prednisone orally back to his baseline at 5 mg a day, he is off antibiotics treatment was extended beyond 7 days so far. _Advanced kidney failure mostly stage IV: Has improved significantly he is down to stage III chronic kidney disease does not require any dialysis continue hydration and continue to watch for any nephrotoxic agent. Still see nephrology regularly and try to manage his antirejection drugs from day-to-day basis. _End-stage renal disease posttransplant remain on antirejection drugs will consult nephrology continue mycophenolate acid along with Prograf and still on prednisone 5 mg daily. Still making urine output does not require dialysis so far. Watching Prograf every 2 days. _A flutter with rapid ventricular response: He was switched to oral medication metoprolol up to 75 mg 3 times a day, Cardizem CD8 120 mg daily and Eliquis 2.5 mg twice a day patient seems to do well with medication. _Congestive heart failure acute with mild exacerbation mostly systolic dy sfunction the patient still acting wet with worsening heart failure patient still on IV furosemide will continue to watch kidney function with any extra medication still on beta-amy, hydralazine 25 mg scheduled if needed can benefit from isosorbide as well. _Urinary retention: Remove Cintron catheter at this point continue to measure urine output carefully. _Valvular heart disease: With severe mitral regurgitation and bio static aortic valve not well-visualized but size only 1.0 cm. Continue medical management for now need different type of echo for more active seen on the aortic valve. _Type 2 diabetes he was hypoglycemic this morning had to hold his short acting insulin, continue diet continue Accu-Chek with sliding scales coverage. _Hypertension:_Has been on hydralazine 50 mg twice a day, amlodipine 10 mg daily, metoprolol titrate 50 mg 3 times a day. _Hyperlipidemia: Has been on Lipitor 40 mg a day currently medication. Debility: Start and increase physical therapy patient believes he wants to go home he does not want to go anywhere but will initiate physical therapy and consider home health care when he discharged home. CODE STATUS: Full code. Prognosis: Fair Discussion: Doing very well adjusting his medication and patient be discharged today to [facility]. Objective - Vital Signs Vital signs: Vital Signs Temp 97.7 F 02/25/24 04:00 Pulse 124 H 02/25/24 04:00 Resp 18 02/25/24 04:00 BP 119/71 02/25/24 04:00 Pulse Ox 96 02/25/24 04:00 FiO2 40 02/22/24 05:00 Intake & Output 02/24/24 02/24/24 02/25/24 06:59 18:59 06:59 Intake Total 120 118 840 Output Total 800 400 600 Balance -680 -282 240 Weight 93.5 kg Intake: Oral 120 118 840 Output: Urine 800 400 600 Other: Voiding Method Urinal Urinal Urinal # Voids 1 - Labs CBC & Chem 7: 02/25/24 08:08 02/25/24 08:08 Labs: Abnormal Lab Results - Last 24 Hours (Table) 02/24/24 02/24/24 02/24/24 Range/Units 05:53 09:28 16:11 BUN 67 H (9-20) mg/dL Creatinine 1.77 H (0.66-1.25) mg/dL POC Glucose (mg/dL) 63 L 204 H (70-110) mg/dL 02/24/24 Range/Units 20:25 BUN (9-20) mg/dL Creatinine (0.66-1.25) mg/dL POC Glucose (mg/dL) 344 H (70-110) mg/dL
--- NOTE | 2024-02-25 16:21 | P.DS ---
Providers Date of admission: 02/15/24 01:08 Attending physician: Mario Finley Consults: 02/15/24 01:03 Consult Physician Routine Consulting Provider: Xavi Lopez Consult Reason/Comments: atrial flutter with RVR Do you want consulting provider notified?: Yes 02/15/24 08:17 Consult Physician Routine Consulting Provider: Marques Ly Consult Reason/Comments: Pneumonia and SOB Do you want consulting provider notified?: Yes 02/15/24 08:18 Consult Physician Routine Consulting Provider: Heidi Hernandez Consult Reason/Comments: ESRD Do you want consulting provider notified?: Yes Primary care physician: [facility] Course: HISTORY OF PRESENT ILLNESS: 68-year-old office patient with active medical history of atherosclerotic heart disease post CABG, end-stage renal disease post renal transplant at [facility] over 10 years ago, chronic stage IIIb kidney disease, hypertension, hyperlipidemia, chronic neuropathy, obesity, obstructive sleep apnea, mild peripheral arterial disease, who was back at [facility] few months ago for worsening kidney function was hospitalized for few days. He was not in the office on 02/14/2024 with complaining of severe dyspnea and shortness of breath with cough productive phlegm not been able to lay down flat mild fluid overload with worsening PND and orthopnea was having significant tachypnea and tachycardia with hypoxia. Pulse ox was less than 90 percentile looks the same time and failure but might have double pneumonia. Patient was sent to the emergency room at [facility] where was seen and evaluated Surprisingly his hemoglobin came back at 10.1 with white blood cell 6.0 creatinine 1.87 close to the last creatinine he has before leaving [facility] a few months ago his blood sugar was elevated at 264 with mildly elevated troponin 0.069 BNP 8 6620. His EKG from the office and from the emergency department showed atrial flutter with pulse rate running at 142 bpm quite irregular. Chest x-ray shows left lower lung airspace opacification correlate with pneumonia and mild congestive heart failure as well. Patient was started on IV antibiotics with ceftriaxone 2 g Cardizem drip was started to bring his pulse rate down not helpful or successful at the time. Consult cardiology and pulmonary patient admitted to the hospital. 02/16/2024: The patient remained extremely sick require to be move on to BiP, was transferred to the intensive care unit still tachycardic with pulse rate around 140 bpm close schedule initially to go for cardioversion after transesophageal echocardiogram but with his respiratory failure on BiPAP not able to do this today patient is not stable continue current management for now patient manage higher dose of Cardizem was not started on amiodarone yet. Still have significant pulmonary edema being on diuretics 4. Much worsening kidney function compared to before and BNP still elevated. Continue to be treated for left lower lobe pneumonia there is transthoracic echocardiogram showed severely increased left ventricular wall thickening with left ventricular ejection fraction of 50-55 percentile with moderate mitral regurgitation who has bioprosthetic aortic valve not well-visualized with his valve area is only 1 cm.. Please continue on azithromycin and Rocephin for possible pneumonia left-sided: Heparin drip and Cardizem drip at this point does not require any vasopressor. Will continue to stabilize patient hopefully pulse rate will drop down to be more stable to be cardioversion eventually will continue BiPAP continue ICU management. 02/17/2024: Patient is off BiPAP today pulse rate is 120s still in a flutter, plan with cardiology to do transesophageal echocardiogram and if there is no thrombus is given the going for cardioversion today. Still on IV antibiotics, still on high flow oxygen at this point was started on amiodarone 5 to bring his pulse rate down little bit. His kidney function slightly was down from before with creatinine up to 2.63. Continue to make good urine output so far. My fear with his transesophageal echocardiogram or any testing that he has an extremely severe spinal stenosis and problem with his cervical spine second third and fourth we have just to be careful tilting his neck backwards specially required intubation. Patient shortness of breath has been much better and is not having any chest pain today. Remain in ICU require more help still seen nephrology inside intensive care pulmonary and cardiology. 02/18/2024: He had cardioversion yesterday successfully after transesophageal echocardiogram and seems still to be running in the 70s, was on amiodarone drip which was stopped today because of declining kidney function. He is GFR down significantly with bun up to 19 creatinine 3.50. His shortness of breath had significantly decreased. Patient is still making good urine output does not need any hemodialysis at this point. He is on 3 L of O2 able to talk comfortably today hemoglobin is down to 8.9 electrolytes are better with exception of creatinine. Patient remain in the ICU for the next 24 hours. Treatment for his pneumonia still with IV and hide currently seems to be successful patient is doing well. 02/19/2024: Patient has 1 more shortness of breath today he is using BiPAP, slightly worsening kidney function with bun 102 creatinine 3.53, mildly elevated blood sugar, hemoglobin is down to 9.0 platelet count 200. Continue empiric IV antibiotics remain on Rocephin 2 g IV daily still on doxycycline as well. Amiodarone was decreased to 200 mg daily with pulse rates under control pulse still irregular since cardioversion. Despite worsening kidney function patient is still making good urine output. Blood sugar has been slightly better. No further chest pain or angina at this point, metoprolol was reduced to 25 mg twice a day still on Eliquis 2.5 mg twice a day as well. His blood pressure is slightly better. 02/20/2024: Still in the ICU hide use of BiPAP through the night felt slightly better, his A-fib still under control on metoprolol down to 25 mg twice a day still on amiodarone 200 mg daily, blood pressure was elevated amlodipine was added 5 mg daily. He is blood work today with his creatinine down to 3.37 and bun at 111 hemoglobin down to 8.8 does not require blood transfusion no thrombocytopenia. Blood pressure is well-controlled pulse oximetry 93 percentile and 6 L, he spent the night and records management specialist on BiPAP with 50% oxygen. Patient is awake alert interactive not symptomatic today still having slight shortness of breath dyspnea no chest pain. His pneumonia still treated with Rocephin and doxycycline culture was completely negative. Chest x-ray repeated today still showing interstitial finding consistent with more heart failure and the left lobe still have significant infiltrate. 02/21/2024: Patient remained on BiPAP all night, still out of breath, kidney function is still down significantly. A-fib is much better with pulse rates in the 60s and 70s but is still on amiodarone 200 mg a day orally hoping to get him off amiodarone completely one of the nephrotoxic agent he is on specially if cardiology believe can maintain patient on beta-amy to keep a pulse rate under control. His infection and infiltrate has improved some continue on antibiotics. Urine output still up as well the patient is not to any degree close to dialysis at this point. Still on his antirejection drug for his transplant. Patient still sick I believe he needs to stay in the ICU another day. 02/22/2024: Patient is off BiPAP he is breathing better this morning he still feeling he is quite good shortness of breath, chest x-ray from this morning shows less water retention congestive heart failure compared to the previous 1, also patient had a CAT scan of the lung sure the ground glass picture similar to mild fibrosis may be this is atypical pneumonitis as for the pneumonia infiltrate much better. His kidney function has improved compared to yesterday he is down on amiodarone to 100 mg a day which seem had helped quite bit his pulse is still in the 60s regular. Patient still critically ill and required to be in the ICU. 02/23/2024: Patient was moved out of the ICU yesterday, has been settling down in his room, had use of BiPAP partially through the night but much better today compared to yesterday. His kidney function is improving gradually does not require any dialysis at this point. Still seen multi subspecialist between pulmonary, cardiology and nephrology. His A-fib remains slightly but active and he is back on Cardizem 5 mg an hour his oral medication should be adjusted today. Patient will initiate physical therapy and have psychotherapist social worker work whether he needs to go somewhere for rehab or he can benefit from going home with physical therapy at home. He works at the [employer] and believe he is going back early next week which I do not think this is possible at this point. 02/24/2024: He is feeling much better, significant improving kidney function compared to before, oxygenation off O2 has been above 90 percentile, BUN is down to 67 with creatinine 1.77, mobility has been increased slight bed moving him off of bed to chair and doing physical therapy. Chest x-ray is improved significantly as well. Nephrology wanted him still to continue on IV Lasix avoid nephrotoxic maintain IV iron and stop oral bicarbonate continue to monitor urine output and oral intake at least for the next 24 more hours. Also cardiology standpoint his heart rate is much better continue amiodarone 100 mg, Eliquis 2.5 mg twice a day his Cardizem drip is off and oral metoprolol tartrate was up to 75 mg 3 times a day which patient seems to do well with it that way he was little bit bradycardic at this point. 02/21/2024: Patient is doing very well, His lab value today showing hemoglobin of 9.3 with hematocrit 31.7, his BUN 63 with creatinine 1.95 fluctuating with GFR around 35-39. His pulse rate was great in the morning at 78 bpm AV, slightly but excited with the discharge and where to go to and how to manage it he become with slight tachycardia without having any symptoms related to it his pulse rate subtle around 80-110 still in A-fib and slightly irregular but doing well with no symptoms. Is seen nephrology today who agreed to add torsemide 20 mg daily instead of his furosemide to maintain his antirejection medication and avoid nephrotoxic maintain IV iron and continue to monitor renal function and urine output and case discussed with [facility] transplant team on February 22, 2024 agree with the current plan management. Also was seen by pulmonary he is breathing room air does not require any oxygen at this point. He is having ongoing issues with A-fib and patient being seen by cardiology his heart rates 120 patient is on amiodarone 100 mg a day was increased to 200 mg remain on anticoagulation with Eliquis 2.5 mg twice a day still on Cardizem 120 mg daily along with metoprolol titrate 75 mg 3 times a day. His blood sugar running well he is remain on Levemir 40 units in the morning 30 units in the evening and NovoLog per sliding scales coverage will get him back to his regular routine. After struggle with the discharge and patient was very stubborn and wants to go home initially with help refuse rehab finally agreeable after trial with his family and physical therapy that he needed more help is going to [facility] rehab. Discharge will be done today and afternoon. REVIEW OF SYSTEMS: CONSTITUTIONAL: Morbid obesity and mild respiratory distress. EYES: No icterus sclerae, no conjunctivitis. EARS, NOSE, MOUTH, THROAT, and FACE: No sore throat, lymphadenopathy, carotid bruits or deformity. RESPIRATORY: Positive shortness of breath cough or wheezes. CARDIOVASCULAR: Positive PND orthopnea palpitation. GASTROINTESTINAL: No Abd pain, Nausea or vomiting, no pain or constipation, No GI Bleed, no distention or masses. GENITOURINARY: No polyuria nocturia without any hematuria. INTEGUMENT/BREAST: Negative for any muscular injury with mild osteoarthritis.. HEMATOLOGIC/LYMPHATIC: Chronic anemia with no bleeding. MUSCULOSKELTAL: Negative for Myalgia or arthralgia. NEURLOGICAL: No LOC, Sz or syncope, blurred vision dizziness or abnormality.. BEHAVIORAL/PSYCH: Negative. ENDOCRINE: Negative. PHYSICAL EXAMINATION: General Appearance: Overweight in mild respiratory distress. Neck HEENT: Supple, no lymphadenopathy, no thyroid enlargement, no carotid bruits. Lungs: Decreased breath sound bilaterally especially the left side with fine rhonchi positive crackles in the bases positive mild inspiratory expiratory wheezes. Chest Wall: Decreased expansion with deep inspiration no tenderness and no deformity was found on exam, no costochondral pain or discomfort. Heart: Irregular rate and rhythm, S1, S2 positive S3 positive PVCs. Back: Symmetric, no curvature, ROM normal, no CVA tenderness. Abdomen: Soft, non-tender, bowel sounds active all four quadrants, no masses, no organomegaly. Extremities: Extremities normal, atraumatic, no cyanosis positive edema. Pulses: 2+ and symmetric. Skin: Skin color, texture, tugor normal, no rashes or lesions. Neurologic: Alert oriented x3 cranial nerves II through XII intact, no motor deficit, no abnormal balance or gait. ASSESSMENT AND PLAN: _Acute respiratory failure: Combination of congestive heart failure along with arrhythmia and left lower lobe pneumonia. Continue improvement is off BiPAP and hardly on any oxygen continue updraft treatment still on oral antibiotics and oral prednisone. _Left lower lobe pneumonia: Continue prednisone orally back to his baseline at 5 mg a day, he is off antibiotics treatment was extended beyond 7 days so far. _Advanced kidney failure mostly stage IV: Has improved significantly he is down to stage III chronic kidney disease does not require any dialysis continue hydration and continue to watch for any nephrotoxic agent. Still see nephrology regularly and try to manage his antirejection drugs from day-to-day basis. _End-stage renal disease posttransplant remain on antirejection drugs will consult nephrology continue mycophenolate acid along with Prograf and still on prednisone 5 mg daily. Still making urine output does not require dialysis so far. Watching Prograf every 2 days. _A flutter with rapid ventricular response: He was switched to oral medication metoprolol up to 75 mg 3 times a day, Cardizem CD8 120 mg daily and Eliquis 2.5 mg twice a day patient seems to do well with medication. _Congestive heart failure acute with mild exacerbation mostly systolic dysfunction the patient still acting wet with worsening heart failure patient still on IV furosemide will continue to watch kidney function with any extra medication still on beta-amy, hydralazine 25 mg scheduled if needed can benefit from isosorbide as well. _Urinary retention: Remove Cintron catheter at this point continue to measure urine output carefully. _Valvular heart disease: With severe mitral regurgitation and bio static aortic valve not well-visualized but size only 1.0 cm. Continue medical management for now need different type of echo for more active seen on the aortic valve. _Type 2 diabetes he was hypoglycemic this morning had to hold his short acting insulin, continue diet continue Accu-Chek with sliding scales coverage. _Hypertension:_Has been on hydralazine 50 mg twice a day, amlodipine 10 mg daily, metoprolol titrate 50 mg 3 times a day. _Hyperlipidemia: Has been on Lipitor 40 mg a day currently medication. Debility: Start and increase physical therapy patient believes he wants to go home he does not want to go anywhere but will initiate physical therapy and consider home health care when he discharged home. CODE STATUS: Full code. Prognosis: Fair Discussion: Doing very well adjusting his medication and patient be discharged today to [facility]. Hospital course: Patient was admitted to the hospital on 02/15/2024 with extreme dyspnea and shortness of breath Along with a productive cough worsening edema and anasarca with severe hypoxia and severe tachycardia was originally diagnosed with acute respiratory failure left lower lobe pneumonia, advanced kidney failure with acute kidney injury post end-stage renal disease with transplant, a flutter with RVR at the time also congestive heart failure with mild exacerbation with mild urine retention at the time. Patient was seen by multi subspecialist from admission on including pulmonary/critical care he required BiPAP initially his pulse rate was running over 140 bpm tachycardic did not respond to any Cardizem drip finally cardiology had to put him on amiodarone drip. Cardiology attempted to do cardioversion after they have done transesophageal echocardiogram was cardioverted on 02/17/2024 did not last long. Patient finally was on increased dose of metoprolol along with Cardizem and adding amiodarone and his pulse rate started coming down. His acute kidney injury with creatinine as high as 4.0 with GFR down to 11 with nephrology involvement and taking him off all nephrotoxic agent having patient on IV hydration and management patient's creatinine is start coming down gradually his electrolyte was off balance with replacement patient has done well. Patient was transfer out of the ICU did not require to be on any mechanical ventilation did not require any BiPAP afterward his amiodarone was decreased to 100 mg daily but developed to have slight tachycardia had to go higher to 200 mg a day and having to keep patient on Cardizem and metoprolol to keep his pulse rate going also still on anticoagulation with Eliquis 2.5 mg twice a day. 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 Time spent on discharging patient was over 45 minutes. Plan - Discharge Summary New Discharge Prescriptions: New Ipratropium-Albuterol Nebulize [Duoneb 0.5 mg-3 mg/3 ml Soln] 3 ml INHALATION RT-TID #90 each Apixaban [Eliquis] 2.5 mg PO BID #60 tab Diltiazem Cd [Cardizem CD] 120 mg PO DAILY #30 cap Metoprolol Tartrate [Lopressor] 75 mg PO TID #135 tab Amiodarone [Cordarone] 200 mg PO DAILY #30 tab Torsemide [Demadex] 20 mg PO DAILY tab Continue Tamsulosin HCl [Flomax] 0.4 mg PO DAILY Tacrolimus [Prograf] 1 mg PO BID predniSONE 5 mg PO DAILY Mycophenolate Sodium [Mycophenolic Acid] 720 mg PO BID Atorvastatin [Lipitor] 40 mg PO DAILY allopurinoL [Zyloprim] 100 mg PO DAILY Pantoprazole Sodium [Protonix] 40 mg PO DAILY Aspirin EC [Ecotrin Low Dose] 81 mg PO DAILY Insulin Glargine,Hum.rec.anlog [Lantus Solostar Pen] 30 units SQ BID Changed hydrALAZINE HCL [Apresoline] 25 mg PO BID #0 Insulin Aspart [NovoLOG Flexpen] 15 units SQ AC-TID #0 Discontinued Metoprolol Tartrate [Lopressor] 50 mg PO TID amLODIPine BESYLATE 10 mg PO DAILY Furosemide [Lasix] 40 mg PO DAILY Discharge Medication List Atorvastatin [Lipitor] 40 mg PO DAILY 07/11/19 [History] Mycophenolate Sodium [Mycophenolic Acid] 720 mg PO BID 07/11/19 [History] Tacrolimus [Prograf] 1 mg PO BID 07/11/19 [History] Tamsulosin HCl [Flomax] 0.4 mg PO DAILY 07/11/19 [History] allopurinoL [Zyloprim] 100 mg PO DAILY 07/11/19 [History] predniSONE 5 mg PO DAILY 07/11/19 [History] Pantoprazole Sodium [Protonix] 40 mg PO DAILY 07/28/22 [History] Aspirin EC [Ecotrin Low Dose] 81 mg PO DAILY 02/15/24 [History] Insulin Glargine,Hum.rec.anlog [Lantus Solostar Pen] 30 units SQ BID 02/15/24 [History] Amiodarone [Cordarone] 200 mg PO DAILY #30 tab 02/25/24 [Rx] Apixaban [Eliquis] 2.5 mg PO BID #60 tab 02/25/24 [Rx] Diltiazem Cd [Cardizem CD] 120 mg PO DAILY #30 cap 02/25/24 [Rx] Insulin Aspart [NovoLOG Flexpen] 15 units SQ AC-TID #0 02/25/24 [Rx] Ipratropium-Albuterol Nebulize [Duoneb 0.5 mg-3 mg/3 ml Soln] 3 ml INHALATION RT-TID #90 each 02/25/24 [Rx] Metoprolol Tartrate [Lopressor] 75 mg PO TID #135 tab 02/25/24 [Rx] Torsemide [Demadex] 20 mg PO DAILY tab 02/25/24 [Rx] hydrALAZINE HCL [Apresoline] 25 mg PO BID #0 02/25/24 [Rx] Follow up Appointment(s)/Referral(s): Rossy Quintanilla MD [STAFF PHYSICIAN] - 1 Week (office will call you to make appointment ) Mario Finley MD [Primary Care Provider] - 03/02/24 9:00 am (with ALEJO Owens) Marques Ly DO [Doctor of Osteopathic Medicine] - 03/02/24 1:00 pm (come in 15 minutes early to do paperwork ) Ramy Cardenas DO [STAFF PHYSICIAN] - 03/10/24 2:40 pm Patient Instructions/Handouts: Heart Failure (DC), Atrial Flutter (DC) Discharge Disposition: HOME WITH HOME HEALTH SERVICES
[2024-02-26] MEDS ORDERED: TORSEMIDE 20 MG TAB PO SCH (09:00)
[2024-02-26] MEDS ORDERED: AMIODARONE 200 MG TAB PO SCH (09:00)
== END 2024-02-25 16:44 | disposition home health service (06) | DRG 291 ==
LOC: EC 18:51 → 3SCARD 02-15 01:08 → 2SICU 02-16 08:43 → 3SCARD 02-22 16:17
PROVIDERS: ADMIT Internal Medicine Geriatric Medicine; ATTEND Internal Medicine Geriatric Medicine
PROC: 5A09357 Assistance with Respiratory Ventilation, Less than 24 Consecutive Hours, Continuous Positive Airway Pressure (ICD-10-PCS; 2024-02-16)
PROC: B246ZZ4 Ultrasonography of Right and Left Heart, Transesophageal (ICD-10-PCS; 2024-02-17)
PROC: 5A2204Z Restoration of Cardiac Rhythm, Single (ICD-10-PCS; principal; 2024-02-17 08:25)
DX: I13.2 Hypertensive heart and chronic kidney disease with heart failure and with stage 5 chronic kidney disease, or end stage renal disease (principal); I50.33 Acute on chronic diastolic (congestive) heart failure; J18.9 Pneumonia, unspecified organism; J96.01 Acute respiratory failure with hypoxia; N17.0 Acute kidney failure with tubular necrosis; N18.6 End stage renal disease; I48.3 Typical atrial flutter; T86.19 Other complication of kidney transplant; E87.20 Acidosis, unspecified; D84.821 Immunodeficiency due to drugs; Z94.0 Kidney transplant status; J98.11 Atelectasis; E78.5 Hyperlipidemia, unspecified; E11.65 Type 2 diabetes mellitus with hyperglycemia; E87.5 Hyperkalemia; I25.10 Atherosclerotic heart disease of native coronary artery without angina pectoris; D63.1 Anemia in chronic kidney disease; N18.32 Chronic kidney disease, stage 3b; I48.0 Paroxysmal atrial fibrillation; I27.20 Pulmonary hypertension, unspecified; Z79.01 Long term (current) use of anticoagulants; Y83.0 Surgical operation with transplant of whole organ as the cause of abnormal reaction of the patient, or of later complication, without mention of misadventure at the time of the procedure; E11.22 Type 2 diabetes mellitus with diabetic chronic kidney disease; E11.51 Type 2 diabetes mellitus with diabetic peripheral angiopathy without gangrene; E11.649 Type 2 diabetes mellitus with hypoglycemia without coma; G47.33 Obstructive sleep apnea (adult) (pediatric); E11.42 Type 2 diabetes mellitus with diabetic polyneuropathy; I08.3 Combined rheumatic disorders of mitral, aortic and tricuspid valves; R00.0 Tachycardia, unspecified; R33.8 Other retention of urine; M48.00 Spinal stenosis, site unspecified; Z79.4 Long term (current) use of insulin; Z79.02 Long term (current) use of antithrombotics/antiplatelets; Z79.52 Long term (current) use of systemic steroids; Z79.624 Long term (current) use of inhibitors of nucleotide synthesis; Z79.82 Long term (current) use of aspirin; Z79.899 Other long term (current) drug therapy; Z86.73 Personal history of transient ischemic attack (TIA), and cerebral infarction without residual deficits; Z95.1 Presence of aortocoronary bypass graft; Z95.3 Presence of xenogenic heart valve
CPT/HCPCS: 36415; 36600; 71045; 71046; 71250; 80048; 80053; 80197; 81001; 82728; 82805; 83036; 83540; 83550; 83605; 83735; 83880; 84132; 84145; 84443; 84484; 85025; 85027; 85610; 85730; 87040; 87070; 87205; 87449; 92960; 93005; 93306; 93312; 93320; 93325; 94640; 94660; 94760; 96365; 96366; 96367; 99291

== ENCOUNTER 2024-03-09 14:41 | Inpatient (IN) | payer MEDICARE ==
--- NOTE | 2024-03-09 15:16 | ED ---
Altered Mental Status HPI - General Chief Complaint: Altered Mental Status Stated Complaint: AMS Time Seen by Provider: 03/09/24 14:46 Source: EMS, RN notes reviewed, old records reviewed Mode of arrival: EMS Limitations: no limitations - History of Present Illness Initial Comments: This is a 68-year-old male to the ER for evaluation today. Patient presents today for evaluation regards to altered mental status hypoxia. Patient is not breathing appropriately. Not acting appropriately and sent to the ER for low oxygen levels MD Complaint: altered mental status, confusion, decreased responsiveness, weakness, other (shortness of breath) -: days(s) Severity: moderate Consistency of Symptoms: getting worse Context: history of similar presentation Associated Symptoms: denies other symptoms Treatments Prior to Arrival: glucose - Related Data Home Medications Medication Instructions Recorded Confirmed Atorvastatin [Lipitor] 40 mg PO DAILY 07/11/19 03/09/24 Mycophenolate Sodium [Mycophenolic 720 mg PO BID 07/11/19 03/09/24 Acid] Tacrolimus [Prograf] 1 mg PO BID 07/11/19 03/09/24 Tamsulosin HCl [Flomax] 0.4 mg PO DAILY 07/11/19 03/09/24 allopurinoL [Zyloprim] 100 mg PO DAILY 07/11/19 03/09/24 predniSONE 5 mg PO DAILY 07/11/19 03/09/24 Pantoprazole Sodium [Protonix] 40 mg PO DAILY 07/28/22 03/09/24 Aspirin EC [Ecotrin Low Dose] 81 mg PO DAILY 02/15/24 03/09/24 Insulin Glargine,Hum.rec.anlog 30 units SQ BID 02/15/24 03/09/24 [Lantus Solostar Pen] Apixaban [Eliquis] 2.5 mg PO DIRECTED 03/09/24 03/09/24 Furosemide [Lasix] 20 mg PO DAILY 03/09/24 03/09/24 Metoprolol Tartrate [Lopressor] 100 mg PO TID 03/09/24 03/09/24 dilTIAZem HCL [Cardizem CD] 240 mg PO DAILY 03/09/24 03/09/24 hydrALAZINE HCL [Apresoline] 25 mg PO BID 03/09/24 03/09/24 Previous Rx's Medication Instructions Recorded Amiodarone [Cordarone] 200 mg PO DAILY #30 tab 02/25/24 Insulin Aspart [NovoLOG Flexpen] 15 units SQ AC-TID #0 02/25/24 Ipratropium-Albuterol Nebulize 3 ml INHALATION RT-TID #90 each 02/25/24 [Duoneb 0.5 mg-3 mg/3 ml Soln] Torsemide [Demadex] 20 mg PO DAILY tab 02/25/24 Allergies Allergy/AdvReac Type Severity Reaction Status Date / Time No Known Allergies Allergy Verified 03/09/24 16:14 Review of Systems ROS Statement: Those systems with pertinent positive or pertinent negative responses have been documented in the HPI. ROS Other: All systems not noted in ROS Statement are negative. Past Medical History Past Medical History: Heart Failure, CVA/TIA, Diabetes Mellitus, Hyperlipidemia, Hypertension Additional Past Medical History / Comment(s): kidney transplant; stroke at 42 years old History of Any Multi-Drug Resistant Organisms: None Reported Past Surgical History: Coronary Bypass/CABG Additional Past Surgical History / Comment(s): kidney transplant. CABG 2017 Past Psychological History: No Psychological Hx Reported Smoking Status: Current every day smoker Past Alcohol Use History: Occasional Past Drug Use History: None Reported - Past Family History Father Family Medical History: Coronary Artery Disease (CAD) Mother Family Medical History: CVA/TIA, Diabetes Mellitus General Exam Limitations: no limitations General appearance: alert, in no apparent distress Head exam: Present: atraumatic, normocephalic, normal inspection Eye exam: Present: normal appearance, PERRL, EOMI. Absent: scleral icterus, conjunctival injection, periorbital swelling ENT exam: Present: normal exam, mucous membranes moist Neck exam: Present: normal inspection. Absent: tenderness, meningismus, lymphadenopathy Respiratory exam: Present: normal lung sounds bilaterally. Absent: respiratory distress, wheezes, rales, rhonchi, stridor Cardiovascular Exam: Present: regular rate, normal rhythm, normal heart sounds. Absent: systolic murmur, diastolic murmur, rubs, gallop, clicks GI/Abdominal exam: Present: soft, normal bowel sounds. Absent: distended, tenderness, guarding, rebound, rigid Extremities exam: Present: normal inspection, full ROM, normal capillary refill. Absent: tenderness, pedal edema, joint swelling, calf tenderness Back exam: Present: normal inspection Neurological exam: Present: alert, oriented X3, CN II-XII intact Psychiatric exam: Present: normal affect, normal mood Skin exam: Present: warm, dry, intact, normal color. Absent: rash Course Vital Signs 03/09/24 03/09/24 03/09/24 14:44 15:36 15:47 Temperature 96.9 F L Pulse Rate 109 H 86 85 Pulse Rate [ Pulse Oximetery ] Respiratory 24 Rate Blood Pressure 104/71 Blood Pressure [Right Arm] O2 Sat by Pulse 98 Oximetry 03/09/24 03/09/24 03/09/24 16:00 17:05 18:21 Temperature Pulse Rate 71 79 Pulse Rate [ Pulse Oximetery ] Respiratory 20 20 16 Rate Blood Pressure 100/67 101/54 Blood Pressure [Right Arm] O2 Sat by Pulse 98 98 Oximetry 03/09/24 03/09/24 03/09/24 18:34 19:29 21:00 Temperature Pulse Rate 53 L 87 53 L Pulse Rate [ Pulse Oximetery ] Respiratory 18 36 H 18 Rate Blood Pressure 107/59 94/53 103/54 Blood Pressure [Right Arm] O2 Sat by Pulse 99 93 L 97 Oximetry 03/09/24 03/10/24 03/10/24 22:00 02:20 04:23 Temperature Pulse Rate 58 L Pulse Rate [ 53 L 53 L Pulse Oximetery ] Respiratory 20 16 16 Rate Blood Pressure 110/86 Blood Pressure 106/50 [Right Arm] O2 Sat by Pulse 97 94 L Oximetry 03/10/24 03/10/24 03/10/24 07:00 08:00 10:30 Temperature Pulse Rate 68 109 H Pulse Rate [ 60 Pulse Oximetery ] Respiratory 22 22 16 Rate Blood Pressure 96/63 107/40 112/65 Blood Pressure [Right Arm] O2 Sat by Pulse 93 L 94 L Oximetry - Reevaluation(s) Reevaluation #1: 03/09/24 17:23 medical record is reviewed Reevaluation #2: 03/09/24 17:24 Patient symptoms are unchanged here in the ER Reevaluation #3: 03/09/24 17:24 Appointment results and questions answered Reevaluation #4: Was pt. sent in by a medical professional or institution (, PA, EDUCATION SUPERVISOR, urgent care, hospital, or residential...) When possible be specific @ -no Did you speak to anyone other than the patient for history (EMS, parent, family, police, friend...)? What history was obtained from this source @ -no Did you review nursing and triage notes (agree or disagree)? Why? @ -agree Are old charts reviewed (outside hosp., previous admission, EMS record, old EKG, old radiological studies, urgent care reports/EKG's, residential records)? Report findings @ -yes Differential Diagnosis (chest pain, altered mental status, abdominal pain women, abdominal pain men, vaginal bleeding, weakness, fever, dyspnea, syncope, headache, dizziness, GI bleed, back pain, seizure, CVA, palpatations, mental health, musculoskeletal)? @ -prior EKG interpreted by me (3pts min.). @ -yes X-rays interpreted by me (1pt min.). @ -yes n yes positive for CHF CT interpreted by me (1pt min.). @ -Yes negative for acute disease U/S interpreted by me (1pt. min.). @ -no What testing was considered but not performed or refused? (CT, X-rays, U/S, labs)? Why? @ -none What meds were considered but not given or refused? Why? @ -none Did you discuss the management of the patient with other professionals (professionals i.e. , PA, EDUCATION SUPERVISOR, lab, RT, psych nurse, dialysis social worker, crab catcher, t eacher, physics technical officer, pillowcase cutter)? Give summary @ -no Was smoking cessation discussed for >3mins.? @ -no Were there social determinants of health that impacted care today? How? (Homelessness, low income, unemployed, alcoholism, drug addiction, transportation, low edu. Level, literacy, decrease access to med. care, [facility], rehab)? @ -none Was there de-escalation of care discussed even if they declined (Discuss DNR or withdrawal of care, Hospice)? DNR status @ -no What co-morbidities impacted this encounter? (DM, HTN, Smoking, COPD, CAD, Cancer, CVA, ARF, Chemo, Hep., AIDS, mental health diagnosis, sleep apnea, morbid obesity)? @ -none Was patient admitted / discharged? Hospital course, mention meds given and route, prescriptions, significant lab abnormalities, going to OR and other p ertinent info. @ - 68 male to ER was brought in for significant hypoxia with significant CHF here in the emergency department. Patient having persistent difficulty breathing will admit for respiratory failure and CHF Admitted Was critical care preformed (if so, how long)? @ -yes31 Undiagnosed new problem with uncertain prognosis? @ -no Drug Therapy requiring intensive monitoring for toxicity (Heparin, Nitro, Insulin, Cardizem)? @ -no Were any procedures done? @ -no Diagnosis/symptom? @ - Acute, or Chronic, or Acute on Chronic? @ -Acute Uncomplicated (without systemic symptoms) or Complicated (systemic symptoms)? @ -Complicated Side effects of treatment? @ -no Exacerbation, Progression, or Severe Exacerbation? @ -exacerbation Poses a threat to life or bodily function? How? (Chest pain, USA, CA, pneumonia, PE, COPD, DKA, ARF, appy, cholecystitis, CVA, Diverticulitis, Homicidal, Suicidal, threat to staff... and all critical care pts) @ -yes with significant respiratory failure Reevaluation #5: Differential Altered Mental Status: Hypoglycemia, DKA, hypercapnia, ETOH, overdose, CO poisoning, trauma, myxedema coma, HTN encephalopathy, infection, encephalitis, psychosis, intercranial hemorrhage, hepatic encephalopathy, meningitis, CVA, this is not meant to be an all-inclusive list Differential Dyspnea: Coronary syndrome, arrhythmia, tamponade, asthma, COPD, pulmonary embolism, pneumonia, pneumothorax, pulmonary effusion, anaphylaxis, diabetic ketoacidosis, flailed chest, pulmonary contusion, diaphragmatic rupture, anemia, neuromuscular, this is not meant to be an all-inclusive list. - Consultations Consultation #1: Spoke with Dr. Finley who agrees to admit this patient Medical Decision Making - Medical Decision Making 68 male to ER was brought in for significant hypoxia with significant CHF here in the emergency department. Patient having persistent difficulty breathing will admit for respiratory failure and CHF - Lab Data Result diagrams: 03/19/24 06:41 03/19/24 06:41 Lab Results 03/09/24 03/09/24 03/09/24 Range/Units 14:54 14:54 14:54 WBC 4.9 (3.8-10.6) k/uL RBC 2.89 L (4.30-5.90) m/uL Hgb 8.2 L (13.0-17.5) gm/dL Hct 28.2 L (39.0-53.0) % MCV 97.6 (80.0-100.0) fL MCH 28.2 (25.0-35.0) pg MCHC 28.9 L (31.0-37.0) g/dL RDW 16.6 H (11.5-15.5) % Plt Count 111 L (150-450) k/uL MPV 8.7 Neutrophils % 85 % Lymphocytes % 8 % Monocytes % 5 % Eosinophils % 1 % Basophils % 0 % Neutrophils # 4.2 (1.3-7.7) k/uL Lymphocytes # 0.4 L (1.0-4.8) k/uL Monocytes # 0.2 (0-1.0) k/uL Eosinophils # 0.0 (0-0.7) k/uL Basophils # 0.0 (0-0.2) k/uL Hypochromasia Marked Anisocytosis Slight Macrocytosis Slight PT 12.4 (10.0-12.5) sec INR 1.2 H (<1.2) APTT 24.6 (22.0-30.0) sec Sample Site ABG pH (7.35-7.45) ABG pCO2 (35-45) mmHg ABG pO2 (83-108) mmHg ABG HCO3 (21-25) mmol/L ABG Total CO2 (19-24) mmol/L ABG O2 Saturation (94-97) % ABG Base Excess mmol/L Gilberto Test FiO2 % Sodium 135 L (137-145) mmol/L Potassium 5.1 (3.5-5.1) mmol/L Chloride 106 (98-107) mmol/L Carbon Dioxide 25 (22-30) mmol/L Anion Gap 4 mmol/L BUN 75 H (9-20) mg/dL Creatinine 3.46 H (0.66-1.25) mg/dL Est GFR (CKD-EPI)AfAm 20 (>60 ml/min/1.73 sqM) Est GFR (CKD-EPI)NonAf 17 (>60 ml/min/1.73 sqM) Glucose 95 (74-99) mg/dL Plasma Lactic Acid Feliciano (0.7-2.0) mmol/L Calcium 9.3 (8.4-10.2) mg/dL Phosphorus 4.9 H (2.5-4.5) mg/dL Magnesium 2.0 (1.6-2.3) mg/dL Total Bilirubin 0.6 (0.2-1.3) mg/dL AST 22 (17-59) U/L ALT 18 (4-49) U/L Alkaline Phosphatase 75 (38-126) U/L Troponin I (0.000-0.034) ng/mL NT-Pro-B Natriuret Pep 7190 pg/mL Total Protein 5.5 L (6.3-8.2) g/dL Albumin 3.2 L (3.5-5.0) g/dL 03/09/24 03/09/24 03/09/24 Range/Units 14:54 14:54 16:28 WBC (3.8-10.6) k/uL RBC (4.30-5.90) m/uL Hgb (13.0-17.5) gm/dL Hct (39.0-53.0) % MCV (80.0-100.0) fL MCH (25.0-35.0) pg MCHC (31.0-37.0) g/dL RDW (11.5-15.5) % Plt Count (150-450) k/uL MPV Neutrophils % % Lymphocytes % % Monocytes % % Eosinophils % % Basophils % % Neutrophils # (1.3-7.7) k/uL Lymphocytes # (1.0-4.8) k/uL Monocytes # (0-1.0) k/uL Eosinophils # (0-0.7) k/uL Basophils # (0-0.2) k/uL Hypochromasia Anisocytosis Macrocytosis PT (10.0-12.5) sec INR (<1.2) APTT (22.0-30.0) sec Sample Site Right Radial ABG pH 7.31 L (7.35-7.45) ABG pCO2 55 H (35-45) mmHg ABG pO2 75 L (83-108) mmHg ABG HCO3 28 H (21-25) mmol/L ABG Total CO2 29 H (19-24) mmol/L ABG O2 Saturation 95.1 (94-97) % ABG Base Excess 0.9 mmol/L Gilberto Test Yes FiO2 32 % Sodium (137-145) mmol/L Potassium (3.5-5.1) mmol/L Chloride (98-107) mmol/L Carbon Dioxide (22-30) mmol/L Anion Gap mmol/L BUN (9-20) mg/dL Creatinine (0.66-1.25) mg/dL Est GFR (CKD-EPI)AfAm (>60 ml/min/1.73 sqM) Est GFR (CKD-EPI)NonAf (>60 ml/min/1.73 sqM) Glucose (74-99) mg/dL Plasma Lactic Acid Feliciano 0.5 L (0.7-2.0) mmol/L Calcium (8.4-10.2) mg/dL Phosphorus (2.5-4.5) mg/dL Magnesium (1.6-2.3) mg/dL Total Bilirubin (0.2-1.3) mg/dL AST (17-59) U/L ALT (4-49) U/L Alkaline Phosphatase (38-126) U/L Troponin I <0.012 (0.000-0.034) ng/mL NT-Pro-B Natriuret Pep pg/mL Total Protein (6.3-8.2) g/dL Albumin (3.5-5.0) g/dL - EKG Data -: EKG Interpreted by Me (EKG is tachycardia 108 QRS 102 QTc 414) - Radiology Data Radiology results: report reviewed (Chest x-ray positive for CHF CT brain negative for acute disease), image reviewed Critical Care Time Critical Care Time: Yes Total Critical Care Time: 31 Disposition Clinical Impression: Renal insufficiency, Atrial flutter with rapid ventricular response, CHF (congestive heart failure), Altered mental status, Hypoxia Disposition: ADMITTED IP TO THIS HOSP Condition: Serious Is patient prescribed a controlled substance at d/c from ED?: No Time of Disposition: 17:10
[2024-03-09 15:21] LABS: Anisocytosis Slight; Basophils % (A) 0 %; Eosinophils % (A) 1 %; HCT 28.2 % (39.0-53.0); HGB 8.2 gm/dL (13.0-17.5); Hypochromasia Marked; Lymphocytes # (A) 0.4 k/uL (1.0-4.8); Lymphocytes % (A) 8 %; MCH 28.2 pg (25.0-35.0); MCHC 28.9 g/dL (31.0-37.0); MCV 97.6 fL (80.0-100.0); Macrocytosis Slight; Mean Platelet Volume 8.7; Monocytes # (A) 0.2 k/uL (0-1.0); Monocytes % (A) 5 %; Neutrophils # (A) 4.2 k/uL (1.3-7.7); Neutrophils % (A) 85 %; Platelet Count 111 k/uL (150-450); RBC 2.89 m/uL (4.30-5.90); RDW 16.6 % (11.5-15.5); WBC 4.9 k/uL (3.8-10.6)
[2024-03-09 15:34] LABS: ALT 18 U/L (4-49); AST 22 U/L (17-59); African American GFR (CKD) 20 (>60 ml/min/1.73 sqM); Albumin 3.2 g/dL (3.5-5.0); Alkaline Phosphatase 75 U/L (38-126); Anion Gap 4 mmol/L; Blood Urea Nitrogen 75 mg/dL (9-20); Calcium 9.3 mg/dL (8.4-10.2); Carbon Dioxide 25 mmol/L (22-30); Chloride 106 mmol/L (98-107); Glucose 95 mg/dL (74-99); Non-African American GFR(CKD) 17 (>60 ml/min/1.73 sqM); Phosphorus 4.9 mg/dL (2.5-4.5); Potassium 5.1 mmol/L (3.5-5.1); Sodium 135 mmol/L (137-145); Total Bilirubin 0.6 mg/dL (0.2-1.3); Total Protein 5.5 g/dL (6.3-8.2)
[2024-03-09] MEDS: IPRATROPIUM-ALBUTEROL 3 ML NEB INHALATION STA (15:35)
[2024-03-09 15:43] LABS: NT-Pro-B-Type Natriuretic Pept 7190 pg/mL
[2024-03-09 15:46] LABS: INR 1.2 (<1.2); Partial Thromboplastin Time 24.6 sec (22.0-30.0); Prothrombin Time 12.4 sec (10.0-12.5)
--- NOTE | 2024-03-09 15:58 | XR ---
EXAMINATION TYPE: XR chest 1V portable DATE OF EXAM: 03/09/2024 COMPARISON: 02/23/2024 HISTORY: CHF TECHNIQUE: Single frontal view of the chest is obtained. FINDINGS: There is marked cardiomegaly, small bilateral pleural effusions, and patchy opacities within the lung parenchyma most likely indicating pulmonary edema. The findings are most consistent with marked CHF significant worse on the prior study. There are median sternotomy wires. IMPRESSION: Moderate to marked CHF with significant interval worsening compared to the prior study
[2024-03-09 16:32] LABS: ABG Base Excess 0.9 mmol/L; ABG HCO3 28 mmol/L (21-25); ABG Oxygen Saturation 95.1 % (94-97); ABG PCO2 55 mmHg (35-45); ABG PH 7.31 (7.35-7.45); ABG PO2 75 mmHg (83-108); ABG TCO2 29 mmol/L (19-24); Allen Test Performed? Yes
[2024-03-09] MEDS ORDERED: ONDANSETRON 4 MG/2 ML VIAL IVP PRN (17:15)
[2024-03-09] MEDS ORDERED: NALOXONE 0.4 MG/ML 1 ML VIAL IV PRN (17:15)
--- NOTE | 2024-03-09 17:59 | CT ---
EXAMINATION TYPE: CT brain wo con DATE OF EXAM: 03/09/2024 COMPARISON: 07/27/2022 HISTORY: 68-year-old male confusion, AMS TECHNIQUE: Examination was done in axial plane without intravenous contrast. Coronal and sagittal r econstructions performed. CT DLP: 1240.4 mGycm Automated exposure control for dose reduction was used. FINDINGS: There is no evidence of acute intracranial hemorrhage, acute ischemic changes, or or extra-axial flu id collection. There is no effacement of cerebral sulci or basal subarachnoid cisterns. There is no hydrocephalus. There is no midline shift. Yip-white matter distinction is preserved. Focal 3.4 x 1.5 cm area of CSF density within the lateral right middle cranial fossa with, unchanged. Mild patchy white matter hypodensities in both cerebral hemispheres. Encephalomalacia inferior medial right cerebellar hemisphere is unchanged. Mild lobulated mucosal thickening maxillary sinuses. There is fixation plate along the right orbital floor. Scattered fluid within the left greater than right mastoid air cells. Orbits and globes are in tact. IMPRESSION: 1. Focal 3.4 x 1.5 cm area of CSF density lateral right middle cranial fossa is unchanged. Correlate for area of previous infarct/encephalomalacia versus an underlying arachnoid cyst. 2. 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 3. Mild burden of chronic vessel ischemic disease. No acute intracranial abnormality seen. 4. Scattered fluid in the left greater than right mastoid air cells. Correlate for any mastoid pain t o exclude mastoiditis.
[2024-03-09] MEDS: NALOXONE 0.4 MG/ML 1 ML VIAL IVP STA (18:21)
[2024-03-09] MEDS: FUROSEMIDE 10 MG/ML 10 ML VIAL IV SCH (18:25)
[2024-03-09] MEDS: SODIUM CHLORIDE 0.9% 1,000 ML IV STA (18:29)
[2024-03-09] MEDS: SODIUM CHLORIDE 0.9% 1,000 ML IV SCH (18:35)
[2024-03-09] MEDS: ZIPRASIDONE 20 MG VIAL IM STA (20:02)
[2024-03-09] MEDS: HYDROmorphone 1 MG/ML 1 ML SYRINGE IVP STA (20:04)
[2024-03-10 05:52] LABS: Glucose,Whole Blood 56 mg/dL (70-110)
[2024-03-10 06:21] LABS: Glucose,Whole Blood 88 mg/dL (70-110)
--- NOTE | 2024-03-10 07:40 | P.HPIM ---
History of Present Illness H&P Date: 03/09/24 HISTORY OF PRESENT ILLNESS: 68-year-old office patient with active medical history of atherosclerotic heart disease post CABG, end-stage renal disease post renal transplant at [facility] over 10 years ago, chronic stage IIIb kidney disease, hypertension, hyperlipidemia, chronic neuropathy, obesity, obstructive sleep apnea, mild peripheral arterial disease, who was back at [facility] few months ago for worsening kidney function was hospitalized for few days. He was hospitalized on 02/15/2024 with acute respiratory failure secondary to left-sided pneumonia along with combination of heart failure left-sided pneumonia and A-fib with RVR also had acute kidney injury required dialysis for a few sessions the patient finally reversed. He has done well and is being treated for CHF, COPD, left-sided pneumonia and A-fib medication and adjustment was made patient currently be debilitated require oxygen and updraft treatment on the clock presented again to [facility] rehab for almost 10 days. He still not able to be fully independent the sister decided to bring him to our office with extra help Rosalba is regarding at this point the patient developed to have acute rectal bleeding claimed to be hemorrhoid with significant blood. Anticoagulation was held late yesterday and To be on hold. Patient become extremely confused with worsening mental status and worsening mentation ended up Bring him to the emergency department at [facility] via EMS for the above problem. Was unresponsive initially but continued to have significant dyspnea and worsening confusion Limited attempted to Cintron catheter for better watching his kidney function especially with IV diuretics patient become very combative confused delusional and having worsening mental status. Finding at this point again with EKG showing supraventricular tachycardia with pulse rate of 108 looks like A-fib or a flutter at this point. CAT scan of the brain did not show any acute bleed, chest x-ray showed moderate to marked of CHF significant interval worsening compared to the previous study before he left the hospital last time. Laboratory value showed hemoglobin of 8.2 which is close to his baseline blood gas showed significant hypoxia with carbon dioxide retention creatinine is up to 3.46 with bun at 75 with worsening compared to before GFR is down to 17. Metabolic symptoms patient be hospitalized will be seen neurology, nephrology, pulmonary and cardiology. REVIEW OF SYSTEMS: CONSTITUTIONAL: Morbid obesity and mild respiratory distress. Severely confused. EYES: No icterus sclerae, no conjunctivitis. EARS, NOSE, MOUTH, THROAT, and FACE: No sore throat, lymphadenopathy, carotid bruits or deformity. RESPIRATORY: Positive shortness of breath cough or wheezes. CARDIOVASCULAR: Positive PND orthopnea palpitation. GASTROINTESTINAL: No Abd pain, Nausea or vomiting, no Diarrhea or constipation, No GI Bleed, no distention or masses. GENITOURINARY: No polyuria nocturia without any hematuria. INTEGUMENT/BREAST: Negative for any muscular injury with mild osteoarthritis.. HEMATOLOGIC/LYMPHATIC: Chronic anemia with no bleeding. MUSCULOSKELTAL: Negative for Myalgia or arthralgia. NEURLOGICAL: Severe confusion with significant lack of response at this point with worsening mental status. BEHAVIORAL/PSYCH: Negative. ENDOCRINE: Negative. PHYSICAL EXAMINATION: General Appearance: Overweight in mild respiratory distress. Neck HEENT: Supple, no lymphadenopathy, no thyroid enlargement, no carotid bruits. Lungs: Decreased breath sound bilaterally especially the left side with fine rhonchi positive crackles in the bases positive mild inspiratory expiratory wheezes. Chest Wall: Decreased expansion with deep inspiration no tenderness and no deformity was found on exam, no costochondral pain or discomfort. Heart: Irregular rate and rhythm, S1, S2 positive S3 positive PVCs. Back: Symmetric, no curvature, ROM normal, no CVA tenderness. Abdomen: Soft, non-tender, bowel sounds active all four quadrants, no masses, no organomegaly. Extremities: Extremities normal, atraumatic, no cyanosis positive edema. Pulses: 2+ and symmetric. Skin: Skin color, texture, tugor normal, no rashes or lesions. Neurologic: Alert oriented severe confusion cranial nerves II through XII intact, no motor deficit, no abnormal balance or gait. ASSESSMENT AND PLAN: _Severe altered mental status: Clear whether he had any central nervous system or encephalopathy and hypoxia causing his symptoms at this point. Patient be kept in the hospital will be watched carefully will see neurology CAT scan of the brain did not show any bleed treat underlying infection along with hypoxia and heart failure and see if his mental status become close to his baseline. _Acute kidney injury with worsening kidney function 1 stage II chronic kidney disease, with much worsening GFR down to 17 patient does not require dialysis yet but will consult nephrology watch symptoms carefully. _Acute respiratory failure: Combination of congestive heart failure along with arrhythmia and possible bronchitis or pneumonia continue to treat underlying disease. _Severe arrhythmia: Mostly sinus or junctional rhythm with tachycardia and looks like a flutter in between, despite the treatment from last time still much worsening with continue smaller dose of amiodarone along with Cardizem and metoprolol and still on anticoagulation. _GI bleed mostly severe hemorrhoid not significant drop in hemoglobin at this point but still at 8.2 will consult general surgery for checking his rectal area and terminal sigmoid. _Congestive heart failure acute with mild exacerbation mostly systolic dysf unction see cardiology his echocardiogram done recently still on medical management and aggressive management. _Type 2 diabetes not well-controlled noncompliance to medication has been mostly on Lantus 70 units daily along with NovoLog 35 units AC meals plus sliding scales coverage. Titrate insulin as needed. _End-stage renal disease posttransplant remain on antirejection drugs will consult nephrology continue mycophenolate acid along with Prograf and still on prednisone 5 mg daily. _Hypertension: Remain on diltiazem CD2 140 mg a day, torsemide 20 mg daily, metoprolol titrate 100 mg 3 times a day continue medication. _Hyperlipidemia: Has been on Lipitor 40 mg a day currently medication. _BPH watch for any urinary retention. _Anticoagulation: Was on Eliquis 2.5 mg twice a day hold medication at this point with the GI bleed is better. _GI prophylaxis: Patient be on Pepcid 20 mg daily. _DVT prophylaxis: With his A-flutter/A-fib patient be on anticoagulation. CODE STATUS: Full code. Admit patient to the inpatient service for more than 2 night stay. Past Medical History Past Medical History: Heart Failure, CVA/TIA, Diabetes Mellitus, Hyperlipidemia, Hypertension Additional Past Medical History / Comment(s): kidney transplant; stroke at 42 years old History of Any Multi-Drug Resistant Organisms: None Reported Past Surgical History: Coronary Bypass/CABG Additional Past Surgical History / Comment(s): kidney transplant. CABG 2018 Past Psychological History: No Psychological Hx Reported Smoking Status: Current every day smoker Past Alcohol Use History: Occasional Past Drug Use History: None Reported Medications and Allergies Home Medications Medication Instructions Recorded Confirmed Type Atorvastatin [Lipitor] 40 mg PO DAILY 07/11/19 03/09/24 History Mycophenolate Sodium [Mycophenolic 720 mg PO BID 07/11/19 03/09/24 History Acid] Tacrolimus [Prograf] 1 mg PO BID 07/11/19 03/09/24 History Tamsulosin HCl [Flomax] 0.4 mg PO DAILY 07/11/19 03/09/24 History allopurinoL [Zyloprim] 100 mg PO DAILY 07/11/19 03/09/24 History predniSONE 5 mg PO DAILY 07/11/19 03/09/24 History Pantoprazole Sodium [Protonix] 40 mg PO DAILY 07/28/22 03/09/24 History Aspirin EC [Ecotrin Low Dose] 81 mg PO DAILY 02/15/24 03/09/24 History Insulin Glargine,Hum.rec.anlog 30 units SQ BID 02/15/24 03/09/24 History [Lantus Solostar Pen] Amiodarone [Cordarone] 200 mg PO DAILY #30 tab 02/25/24 03/09/24 Rx Insulin Aspart [NovoLOG Flexpen] 15 units SQ AC-TID #0 02/25/24 03/09/24 Rx Ipratropium-Albuterol Nebulize 3 ml INHALATION RT-TID #90 each 02/25/24 03/09/24 Rx [Duoneb 0.5 mg-3 mg/3 ml Soln] Torsemide [Demadex] 20 mg PO DAILY tab 02/25/24 03/09/24 Rx Apixaban [Eliquis] 2.5 mg PO DIRECTED 03/09/24 03/09/24 History Furosemide [Lasix] 20 mg PO DAILY 03/09/24 03/09/24 History Metoprolol Tartrate [Lopressor] 100 mg PO TID 03/09/24 03/09/24 History dilTIAZem HCL [Cardizem CD] 240 mg PO DAILY 03/09/24 03/09/24 History hydrALAZINE HCL [Apresoline] 25 mg PO BID 03/09/24 03/09/24 History Allergies Allergy/AdvReac Type Severity Reaction Status Date / Time No Known Allergies Allergy Verified 03/09/24 16:14 Physical Exam Vitals: Vital Signs Temp Pulse Resp BP Pulse Ox 03/09/24 22:00 58 L 20 110/86 97 03/09/24 21:00 53 L 18 103/54 97 03/09/24 19:29 87 36 H 94/53 93 L 03/09/24 18:34 53 L 18 107/59 99 03/09/24 18:21 16 03/09/24 17:05 79 20 101/54 98 03/09/24 16:00 71 20 100/67 98 03/09/24 15:47 85 03/09/24 15:36 86 03/09/24 14:44 96.9 F L 109 H 24 104/71 98 Intake and Output 03/09/24 03/09/24 03/10/24 14:59 22:59 06:59 Output Total 600 Balance -600 Output: Urine 600 Uretheral (Cintron) 600 Other: Weight 98.883 kg Results CBC & Chem 7: 03/09/24 14:54 03/09/24 14:54 Labs: Abnormal Lab Results - Last 24 Hours (Table) 03/09/24 03/09/24 03/09/24 Range/Units 14:54 14:54 14:54 RBC 2.89 L (4.30-5.90) m/uL Hgb 8.2 L (13.0-17.5) gm/dL Hct 28.2 L (39.0-53.0) % MCHC 28.9 L (31.0-37.0) g/dL RDW 16.6 H (11.5-15.5) % Plt Count 111 L (150-450) k/uL Lymphocytes # 0.4 L (1.0-4.8) k/uL INR 1.2 H (<1.2) ABG pH (7.35-7.45) ABG pCO2 (35-45) mmHg ABG pO2 (83-108) mmHg ABG HCO3 (21-25) mmol/L ABG Total CO2 (19-24) mmol/L Sodium 135 L (137-145) mmol/L BUN 75 H (9-20) mg/dL Creatinine 3.46 H (0.66-1.25) mg/dL Plasma Lactic Acid Feliciano (0.7-2.0) mmol/L Phosphorus 4.9 H (2.5-4.5) mg/dL Total Protein 5.5 L (6.3-8.2) g/dL Albumin 3.2 L (3.5-5.0) g/dL 03/09/24 03/09/24 Range/Units 14:54 16:28 RBC (4.30-5.90) m/uL Hgb (13.0-17.5) gm/dL Hct (39.0-53.0) % MCHC (31.0-37.0) g/dL RDW (11.5-15.5) % Plt Count (150-450) k/uL Lymphocytes # (1.0-4.8) k/uL INR (<1.2) ABG pH 7.31 L (7.35-7.45) ABG pCO2 55 H (35-45) mmHg ABG pO2 75 L (83-108) mmHg ABG HCO3 28 H (21-25) mmol/L ABG Total CO2 29 H (19-24) mmol/L Sodium (137-145) mmol/L BUN (9-20) mg/dL Creatinine (0.66-1.25) mg/dL Plasma Lactic Acid Feliciano 0.5 L (0.7-2.0) mmol/L Phosphorus (2.5-4.5) mg/dL Total Protein (6.3-8.2) g/dL Albumin (3.5-5.0) g/dL
[2024-03-10 08:26] LABS: Basophils # (A) 0 X 10*3/uL (0.00-0.10); Basophils % (A) 0 %; Eosinophils % (A) 1.5 %; HCT 26.1 % (39.6-50.0); HGB 7.7 g/dL (13.0-17.0); Lymphocytes # (A) 0.83 X 10*3/uL (0.90-5.00); Lymphocytes % (A) 12.5 %; MCH 28.1 pg (27.0-32.0); MCHC 29.5 g/dL (32.0-37.0); MCV 95.3 FL (80.0-97.0); Mean Platelet Volume 10.7 FL (9.5-12.2); Monocytes # (A) 0.56 X 10*3/uL (0.20-1.00); Monocytes % (A) 8.5 %; NRBC Per 100 WBC 0 X 10*3/uL (0.00-0.01); Neutrophils # (A) 5.09 X 10*3/uL (1.80-7.70); Neutrophils % (A) 76.9 %; Platelet Count 136 X 10*3/uL (140-440); RBC 2.74 X 10*6/uL (4.40-5.60); RDW 16.4 % (11.5-14.5); WBC 6.62 X 10*3/uL (4.50-10.00)
[2024-03-10] MEDS: IPRATROPIUM-ALBUTEROL 3 ML NEB INHALATION SCH (08:26)
--- NOTE | 2024-03-10 08:27 | P.CRDCN ---
History of Present Illness History of present illness: HISTORY OF PRESENT ILLNESS: This is a 68-year-old male with a past medical history significant for coronary artery disease with previous CABG, congestive heart failure, chronic kidney dis ease with previous kidney transplant, diabetes, atrial fibrillation, hypertension, and hyperlipidemia. Patient does not follow with a snap attacher at [facility]. We have been asked to see the patient in consultation for congestive heart failure. Patient examined at the bedside in the emergency room. The patient was recently hospitalized last month for pneumonia, heart failure, and new onset atrial fibrillation. Patient was brought back to the hospital for worsening mental status. The patient was also found to be in congestive heart failure started on IV Lasix. Patient appears confused during evaluation. There is no family present. Vital signs are stable. DIAGNOSTICS: - EKG reveals atrial fibrillation with heart of 108. - Chest xray moderate to marked CHF with significant interval worsening compared to previous study. - Laboratory data: WBC 4.9. Hemoglobin 8.2. Platelet count 111. Sodium 135. Potassium 5.1. BUN 75. Creatinine 3.46. Troponin negative x 3. proBNP 7190. - Current home cardiac medications include hydralazine 25 mg twice a day, Cardizem 240 mg daily, Demadex 20 mg daily, metoprolol titrate 100 mg 3 times a day, Lasix 20 mg daily, amiodarone 200 mg daily, Atorvastatin 40 mg daily, aspirin 81 mg daily, and Eliquis 2.5 mg twice a day. - Most recent echocardiogram obtained on 02/15/2024 revealed ejection fraction 50 to 55%, mild pulm hypertension, normally functioning bioprosthetic aortic valve without stenosis, moderate TR -Patient underwent MIHAELA and cardioversion on 02/14/[address] Blackwell with conversion to sinus mechanism REVIEW OF SYSTEMS: At the time of my exam: CONSTITUTIONAL: Denies fever or chills. HEENT: Denies blurred vision, vision changes, or eye pain. Denies hemoptysis CARDIOVASCULAR: Denies chest pain. Denies orthopnea. Denies PND. Denies palpitations RESPIRATORY: Denies shortness of breath. GASTROINTESTINAL: Denies abdominal pain. Denies nausea or vomiting. HEMATOLOGIC: Denies bleeding disorders. GENITOURINARY: Denies any blood in urine. SKIN: Denies pruitis. Denies rash. PHYSICAL EXAM: VITAL SIGNS: Reviewed. GENERAL: Well-developed in no acute distress. HEENT: Head is normocephalic. Pupils are equal, round. Sclerae anicteric. Mucous membranes of the mouth are moist. Neck supple. LUNGS: Respirations even and unlabored. Lungs diminished with crackles at the bases HEART: Irregular rate and rhythm. S1 and S2 heard. ABDOMEN: Soft. Nondistended. Nontender. EXTREMITIES: Normal range of motion. No clubbing or cyanosis. Peripheral pulses intact. 2+ bilateral lower extremity edema NEUROLOGIC: Lethargic. Appears confused. ASSESSMENT: Altered mental status Acute on chronic heart failure with preserved EF, 50 to 55% Mild pulm hypertension History of bioprosthetic aortic valve replacement Coronary artery disease with previous CABG Chronic kidney disease History of kidney transplant Paroxysmal atrial fibrillation Hypertension Hyperlipidemia Diabetes PLAN: No need to repeat echocardiogram as this was performed last month Resume home cardiac medications Continue IV Lasix 60 mg every 12 hours Daily weights, accurate intake and output, and monitoring of kidney function Further recommendations pending patient course Nurse practitioner note has been reviewed by physician. Signing provider agrees with the documented findings, assessment, and plan of care documented by CNC SERVICE ENGINEER as a scribe. Past Medical History Past Medical History: Heart Failure, CVA/TIA, Diabetes Mellitus, Hyperlipidemia, Hypertension Additional Past Medical History / Comment(s): kidney transplant; stroke at 42 years old History of Any Multi-Drug Resistant Organisms: None Reported Past Surgical History: Coronary Bypass/CABG Additional Past Surgical History / Comment(s): kidney transplant. CABG 2018 Past Psychological History: No Psychological Hx Reported Smoking Status: Current every day smoker Past Alcohol Use History: Occasional Past Drug Use History: None Reported Medications and Allergies Home Medications Medication Instructions Recorded Confirmed Type Atorvastatin [Lipitor] 40 mg PO DAILY 07/11/19 03/09/24 History Mycophenolate Sodium [Mycophenolic 720 mg PO BID 07/11/19 03/09/24 History Acid] Tacrolimus [Prograf] 1 mg PO BID 07/11/19 03/09/24 History Tamsulosin HCl [Flomax] 0.4 mg PO DAILY 07/11/19 03/09/24 History allopurinoL [Zyloprim] 100 mg PO DAILY 07/11/19 03/09/24 History predniSONE 5 mg PO DAILY 07/11/19 03/09/24 History Pantoprazole Sodium [Protonix] 40 mg PO DAILY 07/28/22 03/09/24 History Aspirin EC [Ecotrin Low Dose] 81 mg PO DAILY 02/15/24 03/09/24 History Insulin Glargine,Hum.rec.anlog 30 units SQ BID 02/15/24 03/09/24 History [Lantus Solostar Pen] Amiodarone [Cordarone] 200 mg PO DAILY #30 tab 02/25/24 03/09/24 Rx Insulin Aspart [NovoLOG Flexpen] 15 units SQ AC-TID #0 02/25/24 03/09/24 Rx Ipratropium-Albuterol Nebulize 3 ml INHALATION RT-TID #90 each 02/25/24 03/09/24 Rx [Duoneb 0.5 mg-3 mg/3 ml Soln] Torsemide [Demadex] 20 mg PO DAILY tab 02/25/24 03/09/24 Rx Apixaban [Eliquis] 2.5 mg PO DIRECTED 03/09/24 03/09/24 History Furosemide [Lasix] 20 mg PO DAILY 03/09/24 03/09/24 History Metoprolol Tartrate [Lopressor] 100 mg PO TID 03/09/24 03/09/24 History dilTIAZem HCL [Cardizem CD] 240 mg PO DAILY 03/09/24 03/09/24 History hydrALAZINE HCL [Apresoline] 25 mg PO BID 03/09/24 03/09/24 History Allergies Allergy/AdvReac Type Severity Reaction Status Date / Time No Known Allergies Allergy Verified 03/09/24 16:14 Physical Exam Vitals: Vital Signs Temp Pulse Pulse Resp BP BP Pulse Ox 03/10/24 07:00 68 22 96/63 93 L 03/10/24 04:23 53 L 16 03/10/24 02:20 53 L 16 106/50 94 L 03/09/24 22:00 58 L 20 110/86 97 03/09/24 21:00 53 L 18 103/54 97 03/09/24 19:29 87 36 H 94/53 93 L 03/09/24 18:34 53 L 18 107/59 99 03/09/24 18:21 16 03/09/24 17:05 79 20 101/54 98 03/09/24 16:00 71 20 100/67 98 03/09/24 15:47 85 03/09/24 15:36 86 03/09/24 14:44 96.9 F L 109 H 24 104/71 98 Intake and Output 03/09/24 03/10/24 03/10/24 22:59 06:59 14:59 Output Total 600 600 Balance -600 -600 Output: Urine 600 600 Uretheral (Cintron) 600 Other: Voiding Method Indwelling Catheter Results 03/09/24 14:54 03/09/24 14:54 Cardiac Enzymes 03/09/24 03/09/24 03/09/24 Range/Units 14:54 14:54 17:31 AST 22 (17-59) U/L Troponin I <0.012 <0.012 (0.000-0.034) ng/mL 03/09/24 Range/Units 20:55 AST (17-59) U/L Troponin I 0.012 (0.000-0.034) ng/mL Coagulation 03/09/24 Range/Units 14:54 PT 12.4 (10.0-12.5) sec APTT 24.6 (22.0-30.0) sec CBC 03/09/24 Range/Units 14:54 WBC 4.9 (3.8-10.6) k/uL RBC 2.89 L (4.30-5.90) m/uL Hgb 8.2 L (13.0-17.5) gm/dL Hct 28.2 L (39.0-53.0) % Plt Count 111 L (150-450) k/uL Comprehensive Metabolic Panel 03/09/24 Range/Units 14:54 Sodium 135 L (137-145) mmol/L Potassium 5.1 (3.5-5.1) mmol/L Chloride 106 (98-107) mmol/L Carbon Dioxide 25 (22-30) mmol/L BUN 75 H (9-20) mg/dL Creatinine 3.46 H (0.66-1.25) mg/dL Glucose 95 (74-99) mg/dL Calcium 9.3 (8.4-10.2) mg/dL AST 22 (17-59) U/L ALT 18 (4-49) U/L Alkaline Phosphatase 75 (38-126) U/L Total Protein 5.5 L (6.3-8.2) g/dL Albumin 3.2 L (3.5-5.0) g/dL Current Medications Generic Name Dose Route Start Last Admin Trade Name Freq PRN Reason Stop Dose Admin Albuterol/Ipratropium 3 ml 03/10/24 08:00 Ipratropium-Albuterol 3 Ml Neb INHALATION RT-TID [facility] Allopurinol 100 mg 03/10/24 09:00 Allopurinol 100 Mg Tab PO DAILY [facility] Amiodarone HCl 200 mg 03/10/24 09:00 Amiodarone 200 Mg Tab PO DAILY [facility] Apixaban 2.5 mg 03/10/24 09:00 Apixaban 2.5 Mg Tablet PO BID [facility] Protocol Aspirin 81 mg 03/10/24 09:00 Aspirin 81 Mg PO DAILY [facility] Atorvastatin Calcium 40 mg 03/10/24 09:00 Atorvastatin 40 Mg Tab PO DAILY [facility] Diltiazem HCl 240 mg 03/10/24 09:00 Diltiazem Cd 240 Mg Cap.Er.24h PO DAILY [facility] Furosemide 60 mg 03/09/24 17:30 03/10/24 06:16 Furosemide 10 Mg/Ml 10 Ml Vial IV 60 mg Q12H [facility]U Administration Hydralazine HCl 25 mg 03/10/24 09:00 Hydralazine Hcl 25 Mg Tab PO BID [facility] Sodium Chloride 1,000 mls @ 20 mls/hr 03/09/24 18:45 03/09/24 18:35 Saline 0.9% IV 20 mls/hr .Q24H [facility] Administration Insulin Aspart 10 unit 03/10/24 07:30 Insulin Aspart (Novolog) 100 Unit/Ml Vial SQ AC-TID [facility] Insulin Detemir 20 unit 03/10/24 07:00 Insulin Detemir (Levemir) 100 Unit/Ml Syr SQ BID@0700,2100 [facility] Metoprolol Tartrate 100 mg 03/10/24 09:00 Metoprolol Tartrate 50 Mg Tab PO TID [facility] Mycophenolate Sodium 720 mg 03/10/24 09:[address] 180 Mg Tablet.Dr PO BID [facility] Naloxone HCl 0.2 mg 03/09/24 17:15 Naloxone 0.4 Mg/Ml 1 Ml Vial IV Q2M PRN Opioid Reversal Ondansetron HCl 4 mg 03/09/24 17:15 Ondansetron 4 Mg/2 Ml Vial IVP Q8HR PRN Nausea And Vomiting Pantoprazole Sodium 40 mg 03/10/24 07:30 Pantoprazole 40 Mg Tablet PO AC-BRKFST THU Prednisone 5 mg 03/10/24 09:00 Prednisone 5 Mg Tab PO DAILY [facility]U Tacrolimus 1 mg 03/10/24 09:00 Tacrolimus 1 Mg Cap PO BID [facility] Tamsulosin HCl 0.4 mg 03/10/24 09:00 Tamsulosin 0.4 Mg Cap.Er.24h PO DAILY [facility] Intake and Output 03/09/24 03/10/24 03/10/24 22:59 06:59 14:59 Output Total 600 600 Balance -600 -600 Output: Urine 600 600 Uretheral (Cintron) 600 Other: Voiding Method Indwelling Catheter 03/09/24 14:54 03/09/24 14:54
[2024-03-10 08:41] LABS: Glucose,Whole Blood 100 mg/dL (70-110)
[2024-03-10] MEDS: INSULIN DETEMIR (LEVEMIR) 100 UNIT/ML SYR SQ SCH ×2 (08:48→21:46)
[2024-03-10] MEDS: INSULIN ASPART (NovoLOG) 100 UNIT/ML VIAL SQ SCH ×2 (08:49→18:27)
[2024-03-10] MEDS: DILTIAZEM CD 240 MG CAP.ER.24H PO SCH (08:50)
[2024-03-10] MEDS: PANTOPRAZOLE 40 MG TABLET PO SCH (08:50)
[2024-03-10] MEDS: ATORVASTATIN 40 MG TAB PO SCH (08:50)
[2024-03-10] MEDS: ASPIRIN 81 MG PO SCH (08:50)
[2024-03-10] MEDS: AMIODARONE 200 MG TAB PO SCH (08:50)
[2024-03-10] MEDS: APIXABAN 2.5 MG TABLET PO SCH (08:50)
[2024-03-10 08:51] LABS: Magnesium 2.1 mg/dL (1.5-2.4); Phosphorus 5.4 mg/dL (2.4-5.1)
[2024-03-10] MEDS: MYCOPHENOLATE SODIUM DR 180 MG TABLET.DR PO SCH (08:51)
[2024-03-10] MEDS: TACROLIMUS 1 MG CAP PO SCH (08:51)
[2024-03-10] MEDS: TAMSULOSIN 0.4 MG CAP.ER.24H PO SCH (08:51)
[2024-03-10] MEDS: predniSONE 5 MG TAB PO SCH (08:51)
[2024-03-10] MEDS: allopurinoL 100 MG TAB PO SCH (08:51)
[2024-03-10] MEDS ORDERED: TORSEMIDE 20 MG TAB PO SCH (09:00)
[2024-03-10 09:13] LABS: ALT 21 U/L (10-49); AST 26 U/L (14-35); Albumin 3.3 g/dL (3.8-4.9); Albumin/Globulin Ratio 1.65 Ratio (1.60-3.17); Alkaline Phosphatase 74 U/L (41-126); BUN/Creat Ratio 18.54 Ratio (12.00-20.00); Calcium 9.3 mg/dL (8.7-10.3); Carbon Dioxide 24.3 mmol/L (21.6-31.8); Chloride 103 mmol/L (96-109); Glucose 49 mg/dL (70-110); Potassium 5.2 mmol/L (3.5-5.5); Sodium 139 mmol/L (135-145); Total Bilirubin 0.3 mg/dL (0.3-1.2); Total Protein 5.3 g/dL (6.2-8.2)
[2024-03-10] MEDS: METOPROLOL TARTRATE 50 MG TAB PO SCH (09:56)
[2024-03-10] MEDS: hydrALAZINE HCL 25 MG TAB PO SCH (09:57)
--- NOTE | 2024-03-10 10:08 | CA ---
Transthoracic Echo Report Name: Graham Zepeda Age: 68 Gender: M : 1955 Exam Date: 03/10/2024 08:19 Exam Location: [facility] Ht (in): 69 Wt (lb): 218 Ordering Physician: Andrae Hendricks DO Attending/Referring Phys: [id number], Ruthie Material Control Associate Ann Marie Shaffer RDCS Procedure CPT: Indications: Heart failure Cardiac Hx: Technical Quality: Technically difficult study Contrast 1: Definity Total Dose (mL): 2 Contrast 2: Total Dose (mL): MEASUREMENTS (Male / Female) Normal Values 2D ECHO LV Diastolic Volume MOD BP 182.2 cm??? 67 - 155 / 56 - 104 cm??? LV Systolic Volume MOD BP 80.5 cm??? 22 - 58 / 19 - 49 cm??? LV Ejection Fraction MOD BP 55.8 % >= 55 % LV Cardiac Index MOD BP 3335.8 cm???/min???m??? LV Diastolic Volume MOD 4C 180.7 cm??? LV Systolic Volume MOD 4C 89.3 cm??? LV Ejection Fraction MOD 4C 50.5 % LV Cardiac Index MOD 4C 2996.5 cm???/min???m??? LV Diastolic Length 4C 9.3 cm LV Systolic Length 4C 8.0 cm LV Diastolic Volume MOD 2C 178.1 cm??? LV Systolic Volume MOD 2C 72.0 cm??? LV Ejection Fraction MOD 2C 59.6 % LV Cardiac Index MOD 2C 3483.4 cm???/min???m??? LV Diastolic Length 2C 9.0 cm LV Systolic Length 2C 7.8 cm DOPPLER AV Peak Velocity 300.8 cm/s AV Peak Gradient 36.2 mmHg AV Mean Velocity 197.8 cm/s AV Mean Gradient 18.2 mmHg AV Velocity Time Integral 63.3 cm LVOT Peak Velocity 124.0 cm/s LVOT Peak Gradient 6.1 mmHg LVOT Velocity Time Integral 25.0 cm MV Peak Velocity 227.9 cm/s MV Peak Gradient 20.8 mmHg MV Mean Velocity 138.8 cm/s MV Mean Gradient 9.3 mmHg MV Velocity Time Integral 58.6 cm TR Peak Velocity 294.9 cm/s TR Peak Gradient 34.8 mmHg Right Atrial Pressure 20.0 mmHg Pulmonary Artery Systolic Pressu 54.8 mmHg Right Ventricular Systolic Press 54.8 mmHg FINDINGS Left Ventricle Left ventricular ejection fraction is estimated at 50-55 %. Moderately increased left ventricular diastolic volume. Moderately increased left ventricular systolic volume. No obvious regional wall motion abnormalities. Right Ventricle Right ventricle not well visualized. Severely elevated right ventricular systolic pressure. Right Atrium Right atrial dilatation. Left Atrium Left atrial dilatation. Mitral Valve Severe thickening/calcification of the anterior mitral valve leaflet. Severe thickening/calcification of the posterior mitral valve leaflet. Severe mitral annular calcification. No evidence for mitral valve prolapse. -moderate mitral regurgitation. mitral stenosis. Aortic Valve Bioprosthetic aortic valve with a peak velocity of 3.1 m/s, peak gradient 37 mmHg, mean gradient 19 mmHg. Trace periprosthetic regurgitation. Tricuspid Valve Structurally normal tricuspid valve. No tricuspid stenosis. Mild tricuspid regurgitation. Pulmonic Valve Structurally normal pulmonic valve. No pulmonic stenosis. Trace pulmonic regurgitation. Pericardium No pericardial effusion. Aorta Aortic root and proximal ascending aorta not well visualized. CONCLUSIONS Normal LV systolic function Bioprosthetic valve in aortic position with a peak gradient of 37 mm and mean gradient of 19 mm across the valve with trace aortic regurgitation Moderate mitral regurgitation Previewed by: Dr. Hwoard Herrera MD (Electronically Signed) Final Date: 10 March 2024 10:07
--- NOTE | 2024-03-10 11:41 | P.CNPUL ---
History of Present Illness Consult date: 03/10/24 Requesting physician: Mario Finley Reason for consult: dyspnea, hypoxemia, pleural effusion, abnormal CXR/CT Chief complaint: Shortness of breath, congestive heart failure. History of present illness: Pulmonary/critical care consult, March 10, 2024. 68-year-old male who was recently inpatient here, for an episode of CHF, pneumonia, and atrial fibrillation with RVR. The patient was discharged from this hospital, and went to [facility]. He was discharged from [facility] on March 07. He was brought back to the hospital, by EMS, yesterday, March 09. He apparently was confused and very lethargic. He had lower extremity edema. He apparently was having difficulty breathing, and he could not be managed at home by his family, so EMS was called. The patient is seen today in the emergency department, room 5. He is currently on 3 L. He is very lethargic and somnolent. He had a blood gas showing a pO2 of 75, pCO2 of 55, pH is 7.31. His N-terminal proBNP was 7190. The patient's chest x-ray was consistent with CHF. My plan is to move the patient to the intensive care unit, start him on dobutamine, and BiPAP. He has been seen by cardiology already. On his last visit here, the patient did require a cardioversion for his atrial fibrillation, and, he received diuretics, and antibiotics. Current laboratory data includes a white count 6.62, hemoglobin 7.7, hematocrit 26.1, and a platelet count of 136,000. Sodium 139, potassium 5.2, chlorides 103, CO2 24, BUN 76, and creatini ne 4.1. Glucose is 100. Calcium 9.3. Albumin is 3.3. Troponins were negative x 2. Chest x-ray is consistent with cardiomegaly, and CHF. Brain CT shows a 3.4 x 1.5 cm area in the lateral right middle cranial fossa, which is unchanged, and consistent with a previous infarct/encephalomalacia. 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 In addition, the patient has chronic vessel ischemic disea se. Review of Systems REVIEW OF SYSTEMS: CONSTITUTIONAL: Lethargy. NEUROLOGIC: Confusion. HEENT: [ Negative.] CARDIAC: Lower extremity edema. PULMONARY: Close of breath. GI: [Negative.] : [Negative.] RHEUMATOLOGIC: [ Negative.] IMMUNOLOGIC: [ Negative.] ENDOCRINE: [Negative. ] DERMATOLOGIC: [Negative.] Past Medical History Past Medical History: Heart Failure, CVA/TIA, Diabetes Mellitus, Hyperlipidemia, Hypertension Additional Past Medical History / Comment(s): kidney transplant; stroke at 42 years old History of Any Multi-Drug Resistant Organisms: None Reported Past Surgical History: Coronary Bypass/CABG Additional Past Surgical History / Comment(s): kidney transplant. CABG 2017 Past Psychological History: No Psychological Hx Reported Smoking Status: Current every day smoker Past Alcohol Use History: Occasional Past Drug Use History: None Reported Medications and Allergies Home Medications Medication Instructions Recorded Confirmed Type Atorvastatin [Lipitor] 40 mg PO DAILY 07/11/19 03/09/24 History Mycophenolate Sodium [Mycophenolic 720 mg PO BID 07/11/19 03/09/24 History Acid] Tacrolimus [Prograf] 1 mg PO BID 07/11/19 03/09/24 History Tamsulosin HCl [Flomax] 0.4 mg PO DAILY 07/11/19 03/09/24 History allopurinoL [Zyloprim] 100 mg PO DAILY 07/11/19 03/09/24 History predniSONE 5 mg PO DAILY 07/11/19 03/09/24 History Pantoprazole Sodium [Protonix] 40 mg PO DAILY 07/28/22 03/09/24 History Aspirin EC [Ecotrin Low Dose] 81 mg PO DAILY 02/15/24 03/09/24 History Insulin Glargine,Hum.rec.anlog 30 units SQ BID 02/15/24 03/09/24 History [Lantus Solostar Pen] Amiodarone [Cordarone] 200 mg PO DAILY #30 tab 02/25/24 03/09/24 Rx Insulin Aspart [NovoLOG Flexpen] 15 units SQ AC-TID #0 02/25/24 03/09/24 Rx Ipratropium-Albuterol Nebulize 3 ml INHALATION RT-TID #90 each 02/25/24 03/09/24 Rx [Duoneb 0.5 mg-3 mg/3 ml Soln] Torsemide [Demadex] 20 mg PO DAILY tab 02/25/24 03/09/24 Rx Apixaban [Eliquis] 2.5 mg PO DIRECTED 03/09/24 03/09/24 History Furosemide [Lasix] 20 mg PO DAILY 03/09/24 03/09/24 History Metoprolol Tartrate [Lopressor] 100 mg PO TID 03/09/24 03/09/24 History dilTIAZem HCL [Cardizem CD] 240 mg PO DAILY 03/09/24 03/09/24 History hydrALAZINE HCL [Apresoline] 25 mg PO BID 03/09/24 03/09/24 History Allergies Allergy/AdvReac Type Severity Reaction Status Date / Time No Known Allergies Allergy Verified 03/09/24 16:14 Physical Exam Osteopathic Statement: *. No significant issues noted on an osteopathic stru ctural exam other than those noted in the History and Physical/Consult. Vitals: Vital Signs Temp Pulse Pulse Resp BP BP Pulse Ox 03/10/24 10:30 109 H 16 112/65 94 L 03/10/24 08:00 60 22 107/40 03/10/24 07:00 68 22 96/63 93 L 03/10/24 04:23 53 L 16 03/10/24 02:20 53 L 16 106/50 94 L 03/09/24 22:00 58 L 20 110/86 97 03/09/24 21:00 53 L 18 103/54 97 03/09/24 19:29 87 36 H 94/53 93 L 03/09/24 18:34 53 L 18 107/59 99 03/09/24 18:21 16 03/09/24 17:05 79 20 101/54 98 03/09/24 16:00 71 20 100/67 98 03/09/24 15:47 85 03/09/24 15:36 86 03/09/24 14:44 96.9 F L 109 H 24 104/71 98 Intake and Output 03/09/24 03/10/24 03/10/24 22:59 06:59 14:59 Output Total 600 600 300 Balance -600 -600 -300 Output: Urine 600 600 300 Uretheral (Cintron) 600 300 Other: Voiding Method Indwelling Catheter Indwelling Catheter No acute distress, confused, with mumbled speech. Very sleepy. HEENT examination is grossly unremarkable. Mucous membranes are moist. No oral lesions. Neck supple. Full range of motion. No adenopathy thyromegaly or neck vein distention. Cardiovascular examination reveals regular rhythm rate. S1-S2 normal. No S3 or S4. No discernible murmur noted. Heart rate 100 bpm. Lungs reveal scattered crackles and rhonchi. No wheezes. Breath sounds equal. Saturation is 94%. Abdomen soft without bowel sounds. No masses or tenderness. Abdomen is obese. Extremities are intact. No cyanosis or clubbing. 1+ edema is noted. Skin is without rash or lesion. Neurologic examination is difficult to assess. Results - Laboratory Findings CBC and BMP: 03/10/24 05:53 03/10/24 05:53 ABG ABG pH 7.31 (7.35-7.45) L 03/09/24 16:28 ABG pCO2 55 mmHg (35-45) H 03/09/24 16:28 ABG pO2 75 mmHg (83-108) L 03/09/24 16:28 ABG O2 Saturation 95.1 % (94-97) 03/09/24 16:28 PT/INR, D-dimer PT 12.4 sec (10.0-12.5) 03/09/24 14:54 INR 1.2 (<1.2) H 03/09/24 14:54 Abnormal lab findings: Abnormal Labs 03/09/24 03/09/24 03/09/24 14:54 14:54 14:54 RBC 2.89 L Hgb 8.2 L Hct 28.2 L MCHC 28.9 L RDW 16.6 H Plt Count 111 L Lymphocytes # 0.4 L INR 1.2 H ABG pH ABG pCO2 ABG pO2 ABG HCO3 ABG Total CO2 Sodium 135 L BUN 75 H Creatinine 3.46 H Est GFR (CKD-EPI) Glucose POC Glucose (mg/dL) Plasma Lactic Acid Feliciano Phosphorus 4.9 H Total Protein 5.5 L Albumin 3.2 L 03/09/24 03/09/24 03/10/24 14:54 16:28 05:51 RBC Hgb Hct MCHC RDW Plt Count Lymphocytes # INR ABG pH 7.31 L ABG pCO2 55 H ABG pO2 75 L ABG HCO3 28 H ABG Total CO2 29 H Sodium BUN Creatinine Est GFR (CKD-EPI) Glucose POC Glucose (mg/dL) 56 L Plasma Lactic Acid Feliciano 0.5 L Phosphorus Total Protein Albumin 03/10/24 03/10/24 05:53 05:53 RBC 2.74 L Hgb 7.7 L Hct 26.1 L MCHC 29.5 L RDW 16.4 H Plt Count 136 L Lymphocytes # 0.83 L INR ABG pH ABG pCO2 ABG pO2 ABG HCO3 ABG Total CO2 Sodium BUN 76.0 H Creatinine 4.1 H Est GFR (CKD-EPI) 15 L Glucose 49 A* POC Glucose (mg/dL) Plasma Lactic Acid Feliciano Phosphorus 5.4 H Total Protein 5.3 L Albumin 3.3 L - Diagnostic Findings Chest x-ray: image reviewed Assessment and Plan Assessment: Acute hypoxemic respiratory failure, secondary to CHF, in a patient with heart failure, and a preserved ejection fraction (HFPEF). Recent admission to this hospital, with an episode of respiratory failure secondary to CHF, pneumonia, and atrial fibrillation/RVR, requiring cardioversion. History of renal transplantation, [facility], 2013. History of previous bypass grafting, [facility], 2019. Chronic kidney disease. History of hypertension. Possible underlying COPD, from previous tobacco use. History of dyslipidemia. History of diabetes mellitus. History of gout. Obesity. History of CVA, age 42. Plan: Plan dated March 10, 2024. The patient is seen in the emergency department, room 5. He is moved to the intensive care unit, for closer monitoring and management. The patient will be placed on BiPAP. He did well on BiPAP the last time he was here. In addition, we will start the patient on dobutamine at 5 mcg/kg/min. He has been seen by cardiology. Will have nephrology see the patient as well. We will check a trough tacrolimus level. Additional recommendations and suggestions are forthcoming. We also will check a procalcitonin level. Labs, x-rays, and medications are reviewed. The patient's overall prognosis remains very guarded. Time with Patient: Greater than 30
--- NOTE | 2024-03-10 11:50 | P.NPCON ---
History of Present Illness - Reason for Consult acute renal failure, chronic renal failure - History of Present Illness Reason for consultation: Acute kidney injury on chronic kidney disease and renal transplant management History of present illness: Patient is a 68-year-old male seen in renal consultation for acute kidney injury on chronic kidney disease. Patient received donor renal transplant in 2012 at [facility]. Patient has chronic kidney disease stage IIIb with baseline creatinine near 2. Patient was recently admitted at facility with A-fib with RVR and cardiorenal renal syndrome. Renal function had improved with IV diuresis. Patient presents back to the hospital due to altered mental status and hypoxia. He is currently on 3 L nasal cannula. Echocardiogram from this admission showed preserved ejection fraction with moderate mitral regurgitation. Patient does have a bioprosthetic aortic valve. Chest x-ray suggestive of fluid overload. He is currently on IV Lasix. Patient has a Cintron catheter. Nonoliguric. Patient does have history of diabetes. I do not see any NSAIDs on his home medication list. Vital signs are stable. General: No acute distress. HEENT: Head exam is unremarkable. On nasal cannula. LUNGS: No audible rhonchi or wheezes. HEART: Rate and Rhythm are regular. ABDOMEN: Nontender. EXTREMITITES: 2+ edema. Past Medical History Past Medical History: Heart Failure, CVA/TIA, Diabetes Mellitus, Hyperlipidemia, Hypertension Additional Past Medical History / Comment(s): kidney transplant; stroke at 42 years old History of Any Multi-Drug Resistant Organisms: None Reported Past Surgical History: Coronary Bypass/CABG Additional Past Surgical History / Comment(s): kidney transplant. CABG 2018 Past Psychological History: No Psychological Hx Reported Smoking Status: Current every day smoker Past Alcohol Use History: Occasional Past Drug Use History: None Reported Medications and Allergies Home Medications Medication Instructions Recorded Confirmed Type Atorvastatin [Lipitor] 40 mg PO DAILY 07/11/19 03/09/24 History Mycophenolate Sodium [Mycophenolic 720 mg PO BID 07/11/19 03/09/24 History Acid] Tacrolimus [Prograf] 1 mg PO BID 07/11/19 03/09/24 History Tamsulosin HCl [Flomax] 0.4 mg PO DAILY 07/11/19 03/09/24 History allopurinoL [Zyloprim] 100 mg PO DAILY 07/11/19 03/09/24 History predniSONE 5 mg PO DAILY 07/11/19 03/09/24 History Pantoprazole Sodium [Protonix] 40 mg PO DAILY 07/28/22 03/09/24 History Aspirin EC [Ecotrin Low Dose] 81 mg PO DAILY 02/15/24 03/09/24 History Insulin Glargine,Hum.rec.anlog 30 units SQ BID 02/15/24 03/09/24 History [Lantus Solostar Pen] Amiodarone [Cordarone] 200 mg PO DAILY #30 tab 02/25/24 03/09/24 Rx Insulin Aspart [NovoLOG Flexpen] 15 units SQ AC-TID #0 02/25/24 03/09/24 Rx Ipratropium-Albuterol Nebulize 3 ml INHALATION RT-TID #90 each 02/25/24 03/09/24 Rx [Duoneb 0.5 mg-3 mg/3 ml Soln] Torsemide [Demadex] 20 mg PO DAILY tab 02/25/24 03/09/24 Rx Apixaban [Eliquis] 2.5 mg PO DIRECTED 03/09/24 03/09/24 History Furosemide [Lasix] 20 mg PO DAILY 03/09/24 03/09/24 History Metoprolol Tartrate [Lopressor] 100 mg PO TID 03/09/24 03/09/24 History dilTIAZem HCL [Cardizem CD] 240 mg PO DAILY 03/09/24 03/09/24 History hydrALAZINE HCL [Apresoline] 25 mg PO BID 03/09/24 03/09/24 History Allergies Allergy/AdvReac Type Severity Reaction Status Date / Time No Known Allergies Allergy Verified 03/09/24 16:14 Physical Exam Vitals: Vital Signs Temp Pulse Pulse Resp BP BP Pulse Ox 03/10/24 10:30 109 H 16 112/65 94 L 03/10/24 08:00 60 22 107/40 03/10/24 07:00 68 22 96/63 93 L 03/10/24 04:23 53 L 16 03/10/24 02:20 53 L 16 106/50 94 L 03/09/24 22:00 58 L 20 110/86 97 03/09/24 21:00 53 L 18 103/54 97 03/09/24 19:29 87 36 H 94/53 93 L 03/09/24 18:34 53 L 18 107/59 99 03/09/24 18:21 16 03/09/24 17:05 79 20 101/54 98 03/09/24 16:00 71 20 100/67 98 03/09/24 15:47 85 03/09/24 15:36 86 03/09/24 14:44 96.9 F L 109 H 24 104/71 98 Intake and Output 03/09/24 03/10/24 03/10/24 22:59 06:59 14:59 Output Total 600 600 300 Balance -600 -600 -300 Output: Urine 600 600 300 Uretheral (Cintron) 600 300 Other: Voiding Method Indwelling Catheter Indwelling Catheter Results - Lab Results Most recent lab results ABG pH 7.31 (7.35-7.45) L 03/09/24 16:28 ABG pCO2 55 mmHg (35-45) H 03/09/24 16:28 ABG pO2 75 mmHg (83-108) L 03/09/24 16:28 ABG HCO3 28 mmol/L (21-25) H 03/09/24 16:28 ABG O2 Saturation 95.1 % (94-97) 03/09/24 16:28 Calcium 9.3 mg/dL (8.7-10.3) 03/10/24 05:53 Phosphorus 5.4 mg/dL (2.4-5.1) H 03/10/24 05:53 Magnesium 2.1 mg/dL (1.5-2.4) 03/10/24 05:53 03/10/24 05:53 03/10/24 05:53 Assessment and Plan Plan: Assessment: 1. Acute kidney injury secondary to ATN secondary to cardiorenal syndrome. Creatinine 4.1 today. 2. Chronic kidney disease stage IIIb with baseline creatinine 1.8-2. 3. Acute hypoxic respiratory failure. 4. Volume overload. 5. Acute on chronic diastolic CHF and moderate mitral regurgitation. 6. Anemia of chronic kidney disease. 7. Diabetes mellitus. 8. A-fib. 9. Hypertension with chronic kidney disease. Stable. Plan: Maintain IV Lasix. Started on dobutamine by cardiology. Strict I's and O's. Has Cintron catheter. Low-salt diet and 1200 cc fluid restriction. Check renal ultrasound. Avoid nephrotoxins. Continue to monitor renal function and urine output. Maintain home antirejection medications. Check tacrolimus level. Thank you for the consultation. I will continue to follow the patient with you during his hospital stay.
[2024-03-10 12:36] LABS: Glucose,Whole Blood 200 mg/dL (70-110)
[2024-03-10] MEDS: DOBUTamine DRIP 500 MG in DEXTROSE/WATER 1 250ML.BAG IV SCH (12:39)
[2024-03-10 13:29] LABS: Appearance,Urine Clear (Clear); Bacteria,Urine Rare /hpf; Bilirubin,Urine Negative (Negative); Blood,Urine Trace (Negative); Color,Urine Colorless; Glucose,Urine (UA) Negative (Negative); Hyaline Casts,Urine 3 /lpf (0-2); Ketones,Urine Negative (Negative); Leukocyte Esterase,Urine Negative (Negative); Mucus,Urine Rare /hpf; Nitrite,Urine Negative (Negative); Protein,Urine Negative (Negative); RBC,Urine 1 /hpf (0-5); Specific Gravity,Urine 1.009 (1.001-1.035); Squamous Epithelial Cell,Urine <1 /hpf (0-4); Urobilinogen,Urine <2.0 mg/dL (<2.0); WBC,Urine 3 /hpf (0-5)
--- NOTE | 2024-03-10 14:51 | US ---
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 Unable to visualize the [place] left kidney due to above-mentioned limitations. Atrophic [place] rig ht kidney. 2. Right lower quadrant transplant kidney shows no gross abnormal body. No hydronephrosis.
--- NOTE | 2024-03-10 15:43 | P.CNNES ---
History of Present Illness Consult date: 03/10/24 Requesting physician: Andrae Hendricks Reason for Consult: ams History of Present Illness: This is a 68-year-old gentleman who presented emergency department because of shortness of breath, blood in the stool and irregular heartbeat according the patient. Neurology is consulted for altered mental status. Patient states he resides by himself and has been having recent blood in the stool feeling short of breath and he feels his heart rhythm is irregular. He denies any focal weakness, numbness. Denies any headache, nausea or vomiting. He states he has a remote history of stroke at the age of 42 and he is on aspirin 81 mg daily. He had kidney transplant at the age of 64 as well and has had CABG at the age of 58. He denies any tobacco use any alcohol use or any illicit drug use. "I have seen the patient and July 28, 2022 for transient episode of garbled speech and confusion and the patient at that time had hypoglycemia. And it was felt possibly hypoglycemia but cannot rule out TIA or seizure. He had a stroke over the right temporal cerebellar. Some of the work-up during this hospital visit consisted of: During this admission the patient has oxygen level of 93 on 3 L nasal cannula. Creatinine is 3.46 and BUN is 75. Phosphorus 4.9 Sodium is 135. Initial serum glucose is 95 and had POC glucose of 56. CT of the head is reported as focal 3.4 x 1.5 cm area of CSF density lateral right middle cranial fossa is unchanged. Correlate for area of previous infarct/encephalomalacia versus underlying arachnoid cyst. 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 2D echo is reported as normal left ventricle systolic function. By prosthetic valve in the aortic position with peak gradient 37 mm and mean gradient 19 across the valve with trace regurgitation. Moderate mitral regurgitation. Review of Systems The positive and negative as per HPI Past Medical History Past Medical History: Heart Failure, CVA/TIA, Diabetes Mellitus, Hyperlipidemia, Hypertension Additional Past Medical History / Comment(s): kidney transplant; stroke at 42 years old History of Any Multi-Drug Resistant Organisms: None Reported Past Surgical History: Coronary Bypass/CABG Additional Past Surgical History / Comment(s): kidney transplant. CABG 2018 Past Anesthesia/Blood Transfusion Reactions: No Reported Reaction Past Psychological History: No Psychological Hx Reported Smoking Status: Current some day smoker Past Alcohol Use History: Occasional Past Drug Use History: None Reported Additional Drug Use History / Comment(s): pt smokes when drinks...may have 5 cigarettes a day - Past Family History Father Family Medical History: Coronary Artery Disease (CAD) Mother Family Medical History: CVA/TIA, Diabetes Mellitus Medications and Allergies Home Medications Medication Instructions Recorded Confirmed Type Atorvastatin [Lipitor] 40 mg PO DAILY 07/11/19 03/09/24 History Mycophenolate Sodium [Mycophenolic 720 mg PO BID 07/11/19 03/09/24 History Acid] Tacrolimus [Prograf] 1 mg PO BID 07/11/19 03/09/24 History Tamsulosin HCl [Flomax] 0.4 mg PO DAILY 07/11/19 03/09/24 History allopurinoL [Zyloprim] 100 mg PO DAILY 07/11/19 03/09/24 History predniSONE 5 mg PO DAILY 07/11/19 03/09/24 History Pantoprazole Sodium [Protonix] 40 mg PO DAILY 07/28/22 03/09/24 History Aspirin EC [Ecotrin Low Dose] 81 mg PO DAILY 02/15/24 03/09/24 History Insulin Glargine,Hum.rec.anlog 30 units SQ BID 02/15/24 03/09/24 History [Lantus Solostar Pen] Amiodarone [Cordarone] 200 mg PO DAILY #30 tab 02/25/24 03/09/24 Rx Insulin Aspart [NovoLOG Flexpen] 15 units SQ AC-TID #0 02/25/24 03/09/24 Rx Ipratropium-Albuterol Nebulize 3 ml INHALATION RT-TID #90 each 02/25/24 03/09/24 Rx [Duoneb 0.5 mg-3 mg/3 ml Soln] Torsemide [Demadex] 20 mg PO DAILY tab 02/25/24 03/09/24 Rx Apixaban [Eliquis] 2.5 mg PO DIRECTED 03/09/24 03/09/24 History Furosemide [Lasix] 20 mg PO DAILY 03/09/24 03/09/24 History Metoprolol Tartrate [Lopressor] 100 mg PO TID 03/09/24 03/09/24 History dilTIAZem HCL [Cardizem CD] 240 mg PO DAILY 03/09/24 03/09/24 History hydrALAZINE HCL [Apresoline] 25 mg PO BID 03/09/24 03/09/24 History Allergies Allergy/AdvReac Type Severity Reaction Status Date / Time No Known Allergies Allergy Verified 03/09/24 16:14 Physical Examination - Vital Signs Vital Signs: Vital Signs Temp Pulse Pulse Resp BP BP Pulse Ox 03/10/24 12:38 03/10/24 11:43 03/10/24 10:30 109 H 16 112/65 94 L 03/10/24 08:00 60 22 107/40 03/10/24 07:00 68 22 96/63 93 L 03/10/24 04:23 53 L 16 03/10/24 02:20 53 L 16 106/50 94 L 03/09/24 22:00 58 L 20 110/86 97 03/09/24 21:00 53 L 18 103/54 97 03/09/24 19:29 87 36 H 94/53 93 L 03/09/24 18:34 53 L 18 107/59 99 03/09/24 18:21 16 03/09/24 17:05 79 20 101/54 98 03/09/24 16:00 71 20 100/67 98 03/09/24 15:47 85 03/09/24 15:36 86 03/09/24 14:44 96.9 F L 109 H 24 104/71 98 FiO2 03/10/24 12:38 40 03/10/24 11:43 40 03/10/24 10:30 03/10/24 08:00 03/10/24 07:00 03/10/24 04:23 03/10/24 02:20 03/09/24 22:00 03/09/24 21:00 03/09/24 19:29 03/09/24 18:34 03/09/24 18:21 03/09/24 17:05 03/09/24 16:00 03/09/24 15:47 03/09/24 15:36 03/09/24 14:44 Intake and Output 03/09/24 03/10/24 03/10/24 22:59 06:59 14:59 Output Total 600 600 300 Balance -600 -600 -300 Output: Urine 600 600 300 Uretheral (Cintron) 600 300 Other: Voiding Method Indwelling Catheter Indwelling Catheter Weight 98.883 kg GENERAL: The patient is lying in bed and is not in acute distress. NEUROLOGICAL: Higher mental function: The patient is mildly drowsy but is awakeable to voice. Is oriented to self, place and time. Is following simple commands. No aphasia or neglect. Cranial nerves: The pupils are round, equal and reactive to light. Pupils are 3-4mm bilaterally. Visual gage are full to confrontation throughout. Extraocular movement is intact no nystagmus is noted. Facial sensation is normal to touch throughout. The facial strength is normal throughout. Hearing is moderately decreased bilaterally to hand rub. Tongue is midline and moved [id number] without any difficulty. No dysarthria is noted. Motor: The strength is has right had extensor weakness >> and forearm extensor weakness (old per patient) and is about 2-3/5. Otherwise 5/5. Decrease slight tone in right upper extremity. Cerebellum: Normal finger to nose left. Sensation: Sensation is normal to touch throughout. Plantars aremute bilaterally. Results - Laboratory Findings CBC and BMP: 03/10/24 05:53 03/10/24 05:53 Abnormal Lab Findings: Abnormal Labs 03/09/24 03/09/24 03/09/24 14:54 14:54 14:54 RBC 2.89 L Hgb 8.2 L Hct 28.2 L MCHC 28.9 L RDW 16.6 H Plt Count 111 L Lymphocytes # 0.4 L INR 1.2 H ABG pH ABG pCO2 ABG pO2 ABG HCO3 ABG Total CO2 Sodium 135 L BUN 75 H Creatinine 3.46 H Est GFR (CKD-EPI) Glucose POC Glucose (mg/dL) Plasma Lactic Acid Feliciano Phosphorus 4.9 H Total Protein 5.5 L Albumin 3.2 L 03/09/24 03/09/24 03/10/24 14:54 16:28 05:51 RBC Hgb Hct MCHC RDW Plt Count Lymphocytes # INR ABG pH 7.31 L ABG pCO2 55 H ABG pO2 75 L ABG HCO3 28 H ABG Total CO2 29 H Sodium BUN Creatinine Est GFR (CKD-EPI) Glucose POC Glucose (mg/dL) 56 L Plasma Lactic Acid Feliciano 0.5 L Phosphorus Total Protein Albumin 03/10/24 03/10/24 03/10/24 05:53 05:53 12:34 RBC 2.74 L Hgb 7.7 L Hct 26.1 L MCHC 29.5 L RDW 16.4 H Plt Count 136 L Lymphocytes # 0.83 L INR ABG pH ABG pCO2 ABG pO2 ABG HCO3 ABG Total CO2 Sodium BUN 76.0 H Creatinine 4.1 H Est GFR (CKD-EPI) 15 L Glucose 49 A* POC Glucose (mg/dL) 200 H Plasma Lactic Acid Feliciano Phosphorus 5.4 H Total Protein 5.3 L Albumin 3.3 L Assessment and Plan Assessment: This is a 68-year-old gentleman who presents because shortness of breath, blood in the stool and arrhythmia. Neurology is consulted for altered mental status. Altered Mental status seems due to Metabolic encephalopathy. Has a glucose today as low as 49. As well as mild hypoxic encephalopathy Hypoglycemia as low as 49 Acute on chronic kidney insufficiency Short of breath Hypoxia History of previous stroke over the right temporal cerebellar. Diabetes mellitus History of CABG Congestive heart failure History of aortic valve replacement History of paroxysmal atrial fibrillation on Eliquis History of end-stage renal disease status post renal transplant about 10 years ago Hypertension Hyperlipidemia History of peripheral arterial disease Plan: I ordered a routine EEG. Ordered ammonia level, vitamin B12, folate If patient mentation does not improve then pursue MRI of the brain. Patient had a recent TSH about a month ago which was normal therefore no need for repeat. Patient is on Eliquis 2.5 mg twice daily, aspirin 81, Lipitor 40 mg. Nephrology, cardiology and pulmonary team are consulted. Will defer the rest of the medical management to primary and other specialist Plan discussed with the patient Thank you for the consultation Dr. Mcgee will resume neurology service tomorrow A.M. Time with Patient: Greater than 30
[2024-03-10 16:43] LABS: % Iron Saturation 30.08 (15.00-50.00)
[2024-03-10 18:14] LABS: Glucose,Whole Blood 196 mg/dL (70-110)
[2024-03-10] MEDS: FORMOTEROL FUMARATE 20 MCG/2 ML NEBU INHALATION SCH (20:29)
[2024-03-10] MEDS: BUDESONIDE 1 MG/2 ML NEBU INHALATION SCH (20:29)
--- NOTE | 2024-03-10 21:04 | EEG ---
ELECTROENCEPHALOGRAM REPORT CLINICAL HISTORY: This is a 68-year-old gentleman with altered mental status. The video EEG is obtained to evaluate for seizure epileptiform activity. The patient is not on any antiepileptic drugs. EEG TYPE: A routine 21-channel EEG with video using the 10/20 electrode placement system. DESCRIPTION: Wakefulness is only obtained. During awake state, the posterior-dominant rhythm consists of [id number] voltage of 7 hertz activity that is well modulated and well sustained. There is no physiological stage 2 sleep architecture. There is no focal slowing. Interictal and ictal is none. ACTIVATION PROCEDURE: Photic stimulation did not evoke a posterior drug response. There is no abnormality during the photic stimulation. Hyperventilation is not performed. CLINICAL INTERPRETATION: This is an abnormal routine EEG. The background slowing is suggestive of mild encephalopathy. Otherwise, there is no focal slowing, epileptiform discharge, or seizure on the EEG. Clinical correlation is recommended. BRYCE / CHELSEAN: [id number] /
[2024-03-10 21:46] LABS: Glucose,Whole Blood 182 mg/dL (70-110)
[2024-03-11 05:49] LABS: Anisocytosis Slight; Basophils % (A) 0 %; Eosinophils # (A) 0.1 k/uL (0-0.7); Eosinophils % (A) 1 %; HCT 24.2 % (39.0-53.0); HGB 7.2 gm/dL (13.0-17.5); Hypochromasia Marked; Lymphocytes # (A) 0.6 k/uL (1.0-4.8); Lymphocytes % (A) 9 %; MCH 28.8 pg (25.0-35.0); MCHC 29.7 g/dL (31.0-37.0); MCV 96.9 fL (80.0-100.0); Macrocytosis Slight; Mean Platelet Volume 9.5; Monocytes # (A) 0.4 k/uL (0-1.0); Monocytes % (A) 7 %; Neutrophils # (A) 5.1 k/uL (1.3-7.7); Neutrophils % (A) 81 %; Platelet Count 113 k/uL (150-450); RDW 16.5 % (11.5-15.5); WBC 6.3 k/uL (3.8-10.6)
[2024-03-11 06:10] LABS: African American GFR (CKD) 18 (>60 ml/min/1.73 sqM); Anion Gap 4 mmol/L; Blood Urea Nitrogen 83 mg/dL (9-20); Calcium 8.5 mg/dL (8.4-10.2); Carbon Dioxide 25 mmol/L (22-30); Chloride 103 mmol/L (98-107); Glucose 208 mg/dL (74-99); Magnesium 1.9 mg/dL (1.6-2.3); Non-African American GFR(CKD) 16 (>60 ml/min/1.73 sqM); Potassium 4.9 mmol/L (3.5-5.1); Sodium 132 mmol/L (137-145)
[2024-03-11] MEDS ORDERED: Magnesium Replacement Protocol 1 EACH MISC MISCELLANE PRN (06:34)
[2024-03-11 07:00] LABS: Glucose,Whole Blood 317 mg/dL (70-110)
[2024-03-11] MEDS: MAGNESIUM SULFATE-D5W PMX 1 GM in DEXTROSE/WATER 1 100ML.BAG IVPB ONE (07:05)
--- NOTE | 2024-03-11 07:17 | XR ---
EXAMINATION TYPE: XR chest 1V portable DATE OF EXAM: 03/11/2024 5:12 AM CLINICAL INDICATION:Male, 68 years old with history of pulmonary edema; COMPARISON: Chest radiographs from 03/09/2024. TECHNIQUE: XR chest 1V portable Frontal view of the chest. FINDINGS: Lungs/Pleura: There is no evidence of pleural effusion, focal consolidation, or pneumothorax. Pulmonary vascularity: Unremarkable. Heart/mediastinum: Cardiomediastinal silhouette is unremarkable. Musculoskeletal: No acute osseous pathology. Midline sternotomy wires are noted. IMPRESSION: Right lower lung airspace opacities. Correlate for pneumonia. Thyromegaly with mild pulmonary edema.
--- NOTE | 2024-03-11 08:20 | P.PN ---
Subjective Progress Note Date: 03/11/24 Principal diagnosis: SOB The patient is a 68-year-old gentleman with a past medical history significant for CAD status post CABG as well as history of heart failure with a preserved ejection fraction and also atrial fibrillation and valvular heart disease status post aortic valve replacement and hypertension and dyslipidemia and renal transplant as well as multiple comorbid conditions who was admitted to the hospital with acute hypoxic respiratory failure associated with change in mental status. March 11, 2024 The patient was seen and evaluated this morning. He is lethargic. He continues to be on BiPAP. The echo showed normal LV systolic function with bioprosthetic aortic valve and a peak gradient of about 20 mmHg across the valve. Currently he is on dobutamine. I am going to stop the dobutamine in the light of the patient having normal LV systolic function and beside that he is hemodynamically stable as [id number] currently he is somewhat tachycardic. He continues to be on IV diuretics. Creatinine remains elevated. the examination is remarkable for change in mental status with a stable vital signs besides tachycardia and regular rate and rhythm and systolic murmur and diminished breathing sounds bilaterally and no edema was noted in the lower extremities Assessment Acute hypoxic respiratory failure Heart failure with a preserved ejection fraction Change in mental status Renal failure and history of renal transplant Valvular heart disease as described above Multiple comorbid conditions Plan DC dobutamine in the light of normal ejection fraction and tachycardia Continue current medical regimen Continue monitor the kidney function and electrolytes Follow-up with the patient Objective - Vital Signs Vital signs: Vital Signs Temp 98.4 F 03/11/24 04:00 Pulse 113 H 03/11/24 07:30 Resp 20 03/11/24 07:30 BP 114/59 03/11/24 07:30 Pulse Ox 98 03/11/24 07:30 FiO2 40 03/11/24 04:22 Intake & Output 03/10/24 03/11/24 03/11/24 18:59 06:59 18:59 Intake Total 80 926.458 120 Output Total 595 830 50 Balance -515 96.458 70 Weight 98.883 kg 101.9 kg Intake: IV 80 120 120 0.9 80 120 20 Magnesium Sulfate-D5w Pmx 100 1 gm In Dextrose/Water 1 100ml.bag @ 100 mls/hr IVPB ONCE ONE Rx#: [id number] Intake, IV Titration 246.458 Amount DOBUTamine DRIP 500 mg In 246.458 Dextrose/Water 1 250ml. bag @ 5 MCG/KG/MIN 14.832 mls/hr IV .[id number] [facility] Rx#:[id number] Oral 560 Output: Urine 595 830 50 Uretheral (Cintron) 300 Other: Voiding Method Indwelling Catheter Indwelling Catheter - Labs CBC & Chem 7: 03/11/24 05:33 03/11/24 05:33 Labs: Abnormal Lab Results - Last 24 Hours (Table) 03/10/24 03/10/24 03/10/24 Range/Units 05:53 05:53 05:53 RBC 2.74 L (4.40-5.60) X 10*6/uL Hgb 7.7 L (13.0-17.0) g/dL Hct 26.1 L (39.6-50.0) % MCHC 29.5 L (32.0-37.0) g/dL RDW 16.4 H (11.5-14.5) % Plt Count 136 L (140-440) X 10*3/uL Lymphocytes # 0.83 L (0.90-5.00) X 10*3/uL Sodium (137-145) mmol/L BUN 76.0 H (9.0-27.0) mg/dL Creatinine 4.1 H (0.6-1.5) mg/dL Est GFR (CKD-EPI) 15 L (>=60) Glucose 49 A* (70-110) mg/dL POC Glucose (mg/dL) (70-110) mg/dL Phosphorus 5.4 H (2.4-5.1) mg/dL Transferrin (204.0-354.0) mg/dL Ferritin (22.0-322.0) ng/mL Total Protein 5.3 L (6.2-8.2) g/dL Albumin 3.3 L (3.8-4.9) g/dL Procalcitonin 0.15 H (0.02-0.09) ng/mL Urine Blood (Negative) Urine Bacteria (None) /hpf Hyaline Casts (0-2) /lpf Urine Mucus (None) /hpf 03/10/24 03/10/24 03/10/24 Range/Units 11:46 12:34 13:00 RBC (4.40-5.60) X 10*6/uL Hgb (13.0-17.0) g/dL Hct (39.6-50.0) % MCHC (32.0-37.0) g/dL RDW (11.5-14.5) % Plt Count (140-440) X 10*3/uL Lymphocytes # (0.90-5.00) X 10*3/uL Sodium (137-145) mmol/L BUN (9.0-27.0) mg/dL Creatinine (0.6-1.5) mg/dL Est GFR (CKD-EPI) (>=60) Glucose (70-110) mg/dL POC Glucose (mg/dL) 200 H (70-110) mg/dL Phosphorus (2.4-5.1) mg/dL Transferrin 176.0 L (204.0-354.0) mg/dL Ferritin 748.0 H (22.0-322.0) ng/mL Total Protein (6.2-8.2) g/dL Albumin (3.8-4.9) g/dL Procalcitonin (0.02-0.09) ng/mL Urine Blood Trace H (Negative) Urine Bacteria Rare H (None) /hpf Hyaline Casts 3 H (0-2) /lpf Urine Mucus Rare H (None) /hpf 03/10/24 03/10/24 03/11/24 Range/Units 18:13 21:45 05:33 RBC (4.40-5.60) X 10*6/uL Hgb (13.0-17.0) g/dL Hct (39.6-50.0) % MCHC (32.0-37.0) g/dL RDW (11.5-14.5) % Plt Count (140-440) X 10*3/uL Lymphocytes # (0.90-5.00) X 10*3/uL Sodium 132 L (137-145) mmol/L BUN 83 H (9.0-27.0) mg/dL Creatinine 3.76 H (0.6-1.5) mg/dL Est GFR (CKD-EPI) (>=60) Glucose 208 H (70-110) mg/dL POC Glucose (mg/dL) 196 H 182 H (70-110) mg/dL Phosphorus (2.4-5.1) mg/dL Transferrin (204.0-354.0) mg/dL Ferritin (22.0-322.0) ng/mL Total Protein (6.2-8.2) g/dL Albumin (3.8-4.9) g/dL Procalcitonin (0.02-0.09) ng/mL Urine Blood (Negative) Urine Bacteria (None) /hpf Hyaline Casts (0-2) /lpf Urine Mucus (None) /hpf 03/11/24 03/11/24 Range/Units 05:33 07:00 RBC 2.50 L (4.40-5.60) X 10*6/uL Hgb 7.2 L (13.0-17.0) g/dL Hct 24.2 L (39.6-50.0) % MCHC 29.7 L (32.0-37.0) g/dL RDW 16.5 H (11.5-14.5) % Plt Count 113 L (140-440) X 10*3/uL Lymphocytes # 0.6 L (0.90-5.00) X 10*3/uL Sodium (137-145) mmol/L BUN (9.0-27.0) mg/dL Creatinine (0.6-1.5) mg/dL Est GFR (CKD-EPI) (>=60) Glucose (70-110) mg/dL POC Glucose (mg/dL) 317 H (70-110) mg/dL Phosphorus (2.4-5.1) mg/dL Transferrin (204.0-354.0) mg/dL Ferritin (22.0-322.0) ng/mL Total Protein (6.2-8.2) g/dL Albumin (3.8-4.9) g/dL Procalcitonin (0.02-0.09) ng/mL Urine Blood (Negative) Urine Bacteria (None) /hpf Hyaline Casts (0-2) /lpf Urine Mucus (None) /hpf
--- NOTE | 2024-03-11 08:58 | P.PN ---
Subjective Progress Note Date: 03/10/24 HISTORY OF PRESENT ILLNESS: 68-year-old office patient with active medical history of atherosclerotic heart disease post CABG, end-stage renal disease post renal transplant at [facility] over 10 years ago, chronic stage IIIb kidney disease, hypertension, hyperlipidemia, chronic neuropathy, obesity, obstructive sleep apnea, mild peripheral arterial disease, who was back at [facility] few months ago for worsening kidney function was hospitalized for few days. He was hospitalized on 02/15/2024 with acute respiratory failure secondary to left-sided pneumonia along with combination of heart failure left-sided pneumonia and A-fib with RVR also had acute kidney injury required dialysis for a few sessions the patient finally reversed. He has done well and is being treated for CHF, COPD, left-sided pneumonia and A-fib medication and adjustment was made patient currently be debilitated require oxygen and updraft treatment on the clock presented again to [facility] rehab for almost 10 days. He still not able to be fully independent the sister decided to bring him to our office with extra help Rosalba is regarding at this point the patient developed to have acute rectal bleeding claimed to be hemorrhoid with significant blood. Anticoagulation was held late yesterday and To be on hold. Patient become extremely confused with worsening mental status and worsening mentation ended up Bring him to the emergency department at [facility] via EMS for the above problem. Was unresponsive initially but continued to have significant dyspnea and worsening confusion Limited attempted to Cintron catheter for better watching his kidney function especially with IV diuretics patient become very combative confused delusional and having worsening mental status. Finding at this point again with EKG showing supraventricular tachycardia with pulse rate of 108 looks like A-fib or a flutter at this point. CAT scan of the brain did n ot show any acute bleed, chest x-ray showed moderate to marked of CHF significant interval worsening compared to the previous study before he left the hospital last time. Laboratory value showed hemoglobin of 8.2 which is close to his baseline blood gas showed significant hypoxia with carbon dioxide retention creatinine is up to 3.46 with bun at 75 with worsening compared to before GFR is down to 17. Metabolic symptoms patient be hospitalized will be seen neurology, nephrology, pulmonary and cardiology. 03/10/2024: The patient was admitted late last night he still in the ER hold for admission he continued to have significant altered mental status with severe encephalopathy not clear also kidney function is much worse with GFR down to 70, had anemia with hemoglobin at 7 continue to have tachycardia and patient was placed on amiodarone from his last admission along with part of the dose of metoprolol and Cardizem. Also patient had severe confusion, type 2 diabetes was better controlled and is not bleeding at this point half the dose of insulin is causing hypoglycemia which will be changed currently. The patient remained on respiratory failure due to recurrent condition we will continue aggressive management continue gentle hydration progressive kidney failure at this point awaiting for nephrology consult if further decline in kidney function patient might require to go on hemodialysis. The patient mental status being awake there is no other significant or focalized problem consistent with neurological type disease with stroke or mini stroke but this is more encephalopathy related to his metabolic problem, hypoxia, hypoglycemia and other. REVIEW OF SYSTEMS: CONSTITUTIONAL: Morbid obesity and mild respiratory distress. Severely con fused. EYES: No icterus sclerae, no conjunctivitis. EARS, NOSE, MOUTH, THROAT, and FACE: No sore throat, lymphadenopathy, carotid bruits or deformity. RESPIRATORY: Positive shortness of breath cough or wheezes. CARDIOVASCULAR: Positive PND orthopnea palpitation. GASTROINTESTINAL: No Abd pain, Nausea or vomiting, no Diarrhea or constipation, No GI Bleed, no distention or masses. GENITOURINARY: No polyuria nocturia without any hematuria. INTEGUMENT/BREAST: Negative for any muscular injury with mild osteoarthritis.. HEMATOLOGIC/LYMPHATIC: Chronic anemia with no bleeding. MUSCULOSKELTAL: Negative for Myalgia or arthralgia. NEURLOGICAL: Severe confusion with significant lack of response at this point with worsening mental status. BEHAVIORAL/PSYCH: Negative. ENDOCRINE: Negative. PHYSICAL EXAMINATION: General Appearance: Overweight in mild respiratory distress. Neck HEENT: Supple, no lymphadenopathy, no thyroid enlargement, no carotid bruits. Lungs: Decreased breath sound bilaterally especially the left side with fine rhonchi positive crackles in the bases positive mild inspiratory expiratory wheezes. Chest Wall: Decreased expansion with deep inspiration no tenderness and no deformity was found on exam, no costochondral pain or discomfort. Heart: Irregular rate and rhythm, S1, S2 positive S3 positive PVCs. Back: Symmetric, no curvature, ROM normal, no CVA tenderness. Abdomen: Soft, non-tender, bowel sounds active all four quadrants, no masses, no organomegaly. Extremities: Extremities normal, atraumatic, no cyanosis positive edema. Pulses: 2+ and symmetric. Skin: Skin color, texture, tugor normal, no rashes or lesions. Neurologic: Alert oriented severe confusion cranial nerves II through XII intact, no motor deficit, no abnormal balance or gait. ASSESSMENT AND PLAN: _Severe altered mental status: Mostly metabolic encephalopathy, try to exclude underlying central nervous system problem, patient be seen neurology, CAT scan of the brain will be done continue to correct his metabolic problem at this point. _Acute kidney injury with worsening kidney function 1 stage II chronic kidney disease, with much worsening GFR down to 17 patient does not require dialysis yet but will consult nephrology watch symptoms carefully. Still been hydrated pulmonary might start him on dobutamine drip which might help. _Acute respiratory failure: Combination of congestive heart failure along with arrhythmia and possible bronchitis or pneumonia continue to treat underlying disease. Patient will require higher oxygen concentration might benefit from having BiPAP awaiting for pulmonary. _Congestive heart failure acute with mild exacerbation mostly resolved. Fraction congestive heart failure but still systolic dysfunction and affected by the kidney failure making it worse. _Severe arrhythmia: Mostly sinus or junctional rhythm with tachycardia and looks like a flutter in between, despite the treatment from last time still much worsening with continue smaller dose of amiodarone along with Cardizem and metoprolol and still on anticoagulation. _Coronary artery disease post bypass surgery from 2019 has not had any chest pain or angina and even if there is a complaint so far patient is not in any condition to go for an intervention. _GI bleed mostly severe hemorrhoid not significant drop in hemoglobin at this point but still at 8.2 will consult general surgery for checking his rectal area and terminal sigmoid. _Type 2 diabetes not well-controlled noncompliance to medication has been mostly on Lantus 70 units daily along with NovoLog 35 units AC meals plus sliding scales coverage. Titrate insulin as needed. _End-stage renal disease posttransplant remain on antirejection drugs will consult nephrology continue mycophenolate acid along with Prograf and still on prednisone 5 mg daily. _Hypertension: Remain on diltiazem CD2 140 mg a day, torsemide 20 mg daily, metoprolol titrate 100 mg 3 times a day continue medication. _Hyperlipidemia: Has been on Lipitor 40 mg a day currently medication. _BPH watch for any urinary retention. _Anticoagulation: Was on Eliquis 2.5 mg twice a day hold medication at this point with the GI bleed is better. _GI prophylaxis: Patient be on Pepcid 20 mg daily. CODE STATUS: Full code. Discussion: Patient be seen multi specialist today between cardiology, pulmonary, nephrology, neurology and possible psychiatry continue current management keep watching patient's carefully he is not stable being down in the ER at this point over hold having to move him into either the floor of the ICU will be probably very helpful if it happened quickly. Objective - Vital Signs Vital signs: Vital Signs Temp 96.9 F L 03/09/24 14:44 Pulse 53 L 03/10/24 04:23 Resp 16 03/10/24 04:23 BP 106/50 03/10/24 02:20 Pulse Ox 94 L 03/10/24 02:20 FiO2 Intake & Output 03/09/24 03/09/24 03/10/24 06:59 18:59 06:59 Output Total 600 Balance -600 Weight 98.883 kg Output: Urine 600 Uretheral (Cintron) 600 Other: Voiding Method Indwelling Catheter - Labs CBC & Chem 7: 03/11/24 05:33 03/11/24 05:33 Labs: Abnormal Lab Results - Last 24 Hours (Table) 03/09/24 03/09/24 03/09/24 Range/Units 14:54 14:54 14:54 RBC 2.89 L (4.30-5.90) m/uL Hgb 8.2 L (13.0-17.5) gm/dL Hct 28.2 L (39.0-53.0) % MCHC 28.9 L (31.0-37.0) g/dL RDW 16.6 H (11.5-15.5) % Plt Count 111 L (150-450) k/uL Lymphocytes # 0.4 L (1.0-4.8) k/uL INR 1.2 H (<1.2) ABG pH (7.35-7.45) ABG pCO2 (35-45) mmHg ABG pO2 (83-108) mmHg ABG HCO3 (21-25) mmol/L ABG Total CO2 (19-24) mmol/L Sodium 135 L (137-145) mmol/L BUN 75 H (9-20) mg/dL Creatinine 3.46 H (0.66-1.25) mg/dL Plasma Lactic Acid Feliciano (0.7-2.0) mmol/L Phosphorus 4.9 H (2.5-4.5) mg/dL Total Protein 5.5 L (6.3-8.2) g/dL Albumin 3.2 L (3.5-5.0) g/dL 03/09/24 03/09/24 Range/Units 14:54 16:28 RBC (4.30-5.90) m/uL Hgb (13.0-17.5) gm/dL Hct (39.0-53.0) % MCHC (31.0-37.0) g/dL RDW (11.5-15.5) % Plt Count (150-450) k/uL Lymphocytes # (1.0-4.8) k/uL INR (<1.2) ABG pH 7.31 L (7.35-7.45) ABG pCO2 55 H (35-45) mmHg ABG pO2 75 L (83-108) mmHg ABG HCO3 28 H (21-25) mmol/L ABG Total CO2 29 H (19-24) mmol/L Sodium (137-145) mmol/L BUN (9-20) mg/dL Creatinine (0.66-1.25) mg/dL Plasma Lactic Acid Feliciano 0.5 L (0.7-2.0) mmol/L Phosphorus (2.5-4.5) mg/dL Total Protein (6.3-8.2) g/dL Albumin (3.5-5.0) g/dL
--- NOTE | 2024-03-11 10:08 | P.PN ---
Subjective Patient is seen in follow-up for acute kidney injury on chronic kidney disease. Creatinine 3.76 today. On dobutamine and IV Lasix. Urine output 25 to 50 cc an hour overnight. Vital signs are stable. General: No acute distress. HEENT: Head exam is unremarkable. On nasal cannula. LUNGS: No audible rhonchi or wheezes. HEART: Rate and Rhythm are regular. ABDOMEN: Nontender. EXTREMITITES: 2+ edema. Objective - Vital Signs Vital signs: Vital Signs Temp 98.4 F 03/11/24 04:00 Pulse 113 H 03/11/24 08:54 Resp 20 03/11/24 07:30 BP 114/59 03/11/24 07:30 Pulse Ox 100 03/11/24 08:30 FiO2 40 03/11/24 09:33 Intake & Output 03/10/24 03/11/24 03/11/24 18:59 06:59 18:59 Intake Total 80 926.458 165.238 Output Total 595 830 50 Balance -515 96.458 115.238 Weight 98.883 kg 101.9 kg Intake: IV 80 120 120 0.9 80 120 20 Magnesium Sulfate-D5w Pmx 100 1 gm In Dextrose/Water 1 100ml.bag @ 100 mls/hr IVPB ONCE ONE Rx#: [id number] Intake, IV Titration 246.458 45.238 Amount DOBUTamine DRIP 500 mg In 246.458 45.238 Dextrose/Water 1 250ml. bag @ 5 MCG/KG/MIN 14.832 mls/hr IV .[id number] [facility] Rx#:[id number] Oral 560 Output: Urine 595 830 50 Uretheral (Cintron) 300 Other: Voiding Method Indwelling Catheter Indwelling Catheter - Labs CBC & Chem 7: 03/11/24 05:33 03/11/24 05:33 Labs: Abnormal Lab Results - Last 24 Hours (Table) 03/10/24 03/10/24 03/10/24 Range/Units 05:53 11:46 12:34 RBC (4.30-5.90) m/uL Hgb (13.0-17.5) gm/dL Hct (39.0-53.0) % MCHC (31.0-37.0) g/dL RDW (11.5-15.5) % Plt Count (150-450) k/uL Lymphocytes # (1.0-4.8) k/uL Sodium (137-145) mmol/L BUN (9-20) mg/dL Creatinine (0.66-1.25) mg/dL Glucose (74-99) mg/dL POC Glucose (mg/dL) 200 H (70-110) mg/dL Transferrin 176.0 L (204.0-354.0) mg/dL Ferritin 748.0 H (22.0-322.0) ng/mL Procalcitonin 0.15 H (0.02-0.09) ng/mL Urine Blood (Negative) Urine Bacteria (None) /hpf Hyaline Casts (0-2) /lpf Urine Mucus (None) /hpf 03/10/24 03/10/24 03/10/24 Range/Units 13:00 18:13 21:45 RBC (4.30-5.90) m/uL Hgb (13.0-17.5) gm/dL Hct (39.0-53.0) % MCHC (31.0-37.0) g/dL RDW (11.5-15.5) % Plt Count (150-450) k/uL Lymphocytes # (1.0-4.8) k/uL Sodium (137-145) mmol/L BUN (9-20) mg/dL Creatinine (0.66-1.25) mg/dL Glucose (74-99) mg/dL POC Glucose (mg/dL) 196 H 182 H (70-110) mg/dL Transferrin (204.0-354.0) mg/dL Ferritin (22.0-322.0) ng/mL Procalcitonin (0.02-0.09) ng/mL Urine Blood Trace H (Negative) Urine Bacteria Rare H (None) /hpf Hyaline Casts 3 H (0-2) /lpf Urine Mucus Rare H (None) /hpf 03/11/24 03/11/24 03/11/24 Range/Units 05:33 05:33 07:00 RBC 2.50 L (4.30-5.90) m/uL Hgb 7.2 L (13.0-17.5) gm/dL Hct 24.2 L (39.0-53.0) % MCHC 29.7 L (31.0-37.0) g/dL RDW 16.5 H (11.5-15.5) % Plt Count 113 L (150-450) k/uL Lymphocytes # 0.6 L (1.0-4.8) k/uL Sodium 132 L (137-145) mmol/L BUN 83 H (9-20) mg/dL Creatinine 3.76 H (0.66-1.25) mg/dL Glucose 208 H (74-99) mg/dL POC Glucose (mg/dL) 317 H (70-110) mg/dL Transferrin (204.0-354.0) mg/dL Ferritin (22.0-322.0) ng/mL Procalcitonin (0.02-0.09) ng/mL Urine Blood (Negative) Urine Bacteria (None) /hpf Hyaline Casts (0-2) /lpf Urine Mucus (None) /hpf Assessment and Plan Plan: Assessment: 1. Acute kidney injury secondary to ATN secondary to cardiorenal syndrome. Creatinine 4.1 yesterday and is 3.76 today. No hydronephrosis noted on ultrasound. 2. Chronic kidney disease stage IIIb with baseline creatinine 1.8-2. 3. Acute hypoxic respiratory failure. 4. Volume overload. 5. Acute on chronic diastolic CHF and moderate mitral regurgitation. 6. Anemia of chronic kidney disease. 7. Diabetes mellitus. 8. A-fib. 9. Hypertension with chronic kidney disease. Stable. Plan: Stop IV Lasix. Start Lasix drip at 10 cc an hour. Dobutamine per cardiology. Strict I's and O's. Has Cintron catheter. Low-salt diet and 1200 cc fluid restriction. Avoid nephrotoxins. Continue to monitor renal function and urine output. Maintain home antirejection medications. Follow-up tacrolimus level.
[2024-03-11] MEDS: FUROSEMIDE 100 MG in SODIUM CHLORIDE 0.9% 90 ML IV SCH (10:37)
[2024-03-11 11:37] LABS: Glucose,Whole Blood 236 mg/dL (70-110)
--- NOTE | 2024-03-11 11:57 | P.PN ---
Subjective Progress Note Date: 03/11/24 Principal diagnosis: Respiratory failure. Pulmonary/critical care consult, March 10, 2024. 68-year-old male who was recently inpatient here, for an episode of CHF, pneumonia, and atrial fibrillation with RVR. The patient was discharged from this hospital, and went to [facility]. He was discharged from [facility] on March 07. He was brought back to the hospital, by EMS, yesterday, March 09. He apparently was confused and very lethargic. He had lower extremity edema. He apparently was having difficulty breathing, and he could not be managed at home by his family, so EMS was called. The patient is seen today in the emergency department, room 5. He is currently on 3 L. He is very lethargic and somnolent. He had a blood gas showing a pO2 of 75, pCO2 of 55, pH is 7.31. His N-terminal proBNP was 7190. The patient's chest x-ray was consistent with CHF. My plan is to move the patient to the intensive care unit, start him on dobutamine, and BiPAP. He has been seen by cardiology already. On his last visit here, the patient did require a cardioversion for his atrial fibrillation, and, he received diuretics, and antibiotics. Current laboratory data includes a white count 6.62, hemoglobin 7.7, hematocrit 26.1, and a platelet count of 136,000. Sodium 139, potassium 5.2, chlorides 103, CO2 24, BUN 76, and creatinine 4.1. Glucose is 100. Calcium 9.3. Albumin is 3.3. Troponins were negative x 2. Chest x-ray is consistent with cardiomegaly, and CHF. Brain CT shows a 3.4 x 1.5 cm area in the lateral right middle cranial fossa, which is unchanged, and consistent with a previous infarct/encephalomalacia. 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 In addition, the patient has chronic vessel ischemic disease. Progress note dated March 11, 2024. 68-year-old male with a history of multiple medical problems, was seen yesterday in the emergency department. We moved him to the ICU and placed him on BiPAP, with settings of 12/5, and 40%. I also initially placed him on dobutamine at 5 mcg/kg/min. The patient is getting saline at 10 cc an hour. Off of BiPAP, he is on 4 L nasal cannula. Cardiology turned to dobutamine off given his normal ejection fraction. The patient be started on a Lasix drip at 10 mg an hour. Clinically, the patient looks better today than he did yesterday. He is much more awake and alert although his speech is a bit garbled. Current labs are good white count 6.3, hemoglobin 7.2, hematocrit 24.2, and a platelet count of 113,000. Sodium 132, potassium 4.9, chlorides 103, CO2 25, BUN 83, creatinine 3.76. Glucose is 236. Chest x-ray is improved. The patient's procalcitonin level was 0.15. The most recent N-terminal proBNP was 7190. Objective - Vital Signs Vital signs: Vital Signs Temp 98.2 F 03/11/24 09:00 Pulse 112 H 03/11/24 10:00 Resp 27 H 03/11/24 10:00 BP 114/64 03/11/24 10:00 Pulse Ox 96 03/11/24 10:00 FiO2 40 03/11/24 10:00 Intake & Output 03/10/24 03/11/24 03/11/24 18:59 06:59 18:59 Intake Total 80 926.458 165.238 Output Total 595 830 50 Balance -515 96.458 115.238 Weight 98.883 kg 101.9 kg Intake: IV 80 120 120 0.9 80 120 20 Magnesium Sulfate-D5w Pmx 100 1 gm In Dextrose/Water 1 100ml.bag @ 100 mls/hr IVPB ONCE ONE Rx#: [id number] Intake, IV Titration 246.458 45.238 Amount DOBUTamine DRIP 500 mg In 246.458 45.238 Dextrose/Water 1 250ml. bag @ 5 MCG/KG/MIN 14.832 mls/hr IV .[id number] [facility] Rx#:[id number] Oral 560 Output: Urine 595 830 50 Uretheral (Cintron) 300 Other: Voiding Method Indwelling Catheter Indwelling Catheter - Exam No acute distress, much more awake and alert than yesterday. Currently on 4 L nasal cannula. HEENT examination is grossly unremarkable. Mucous membranes are moist. No oral lesions. Neck supple. Full range of motion. No adenopathy thyromegaly or neck vein di stention. Cardiovascular examination reveals regular rhythm rate. S1-S2 normal. No S3 or S4. No discernible murmur noted. Heart rate 103 bpm. Lungs reveal scattered crackles and rhonchi. No wheezes. Breath sounds equal. Saturation is 86 %. Abdomen soft without bowel sounds. No masses or tenderness. Abdomen is obese. Extremities are intact. No cyanosis or clubbing. 1+ edema is noted. Skin is without rash or lesion. Neurologic examination is difficult to assess. - Labs CBC & Chem 7: 03/11/24 05:33 03/11/24 05:33 Labs: Abnormal Lab Results - Last 24 Hours (Table) 03/10/24 03/10/24 03/10/24 Range/Units 05:53 11:46 12:34 RBC (4.30-5.90) m/uL Hgb (13.0-17.5) gm/dL Hct (39.0-53.0) % MCHC (31.0-37.0) g/dL RDW (11.5-15.5) % Plt Count (150-450) k/uL Lymphocytes # (1.0-4.8) k/uL Sodium (137-145) mmol/L BUN (9-20) mg/dL Creatinine (0.66-1.25) mg/dL Glucose (74-99) mg/dL POC Glucose (mg/dL) 200 H (70-110) mg/dL Transferrin 176.0 L (204.0-354.0) mg/dL Ferritin 748.0 H (22.0-322.0) ng/mL Procalcitonin 0.15 H (0.02-0.09) ng/mL Urine Blood (Negative) Urine Bacteria (None) /hpf Hyaline Casts (0-2) /lpf Urine Mucus (None) /hpf 03/10/24 03/10/24 03/10/24 Range/Units 13:00 18:13 21:45 RBC (4.30-5.90) m/uL Hgb (13.0-17.5) gm/dL Hct (39.0-53.0) % MCHC (31.0-37.0) g/dL RDW (11.5-15.5) % Plt Count (150-450) k/uL Lymphocytes # (1.0-4.8) k/uL Sodium (137-145) mmol/L BUN (9-20) mg/dL Creatinine (0.66-1.25) mg/dL Glucose (74-99) mg/dL POC Glucose (mg/dL) 196 H 182 H (70-110) mg/dL Transferrin (204.0-354.0) mg/dL Ferritin (22.0-322.0) ng/mL Procalcitonin (0.02-0.09) ng/mL Urine Blood Trace H (Negative) Urine Bacteria Rare H (None) /hpf Hyaline Casts 3 H (0-2) /lpf Urine Mucus Rare H (None) /hpf 03/11/24 03/11/24 03/11/24 Range/Units 05:33 05:33 07:00 RBC 2.50 L (4.30-5.90) m/uL Hgb 7.2 L (13.0-17.5) gm/dL Hct 24.2 L (39.0-53.0) % MCHC 29.7 L (31.0-37.0) g/dL RDW 16.5 H (11.5-15.5) % Plt Count 113 L (150-450) k/uL Lymphocytes # 0.6 L (1.0-4.8) k/uL Sodium 132 L (137-145) mmol/L BUN 83 H (9-20) mg/dL Creatinine 3.76 H (0.66-1.25) mg/dL Glucose 208 H (74-99) mg/dL POC Glucose (mg/dL) 317 H (70-110) mg/dL Transferrin (204.0-354.0) mg/dL Ferritin (22.0-322.0) ng/mL Procalcitonin (0.02-0.09) ng/mL Urine Blood (Negative) Urine Bacteria (None) /hpf Hyaline Casts (0-2) /lpf Urine Mucus (None) /hpf 03/11/24 Range/Units 11:36 RBC (4.30-5.90) m/uL Hgb (13.0-17.5) gm/dL Hct (39.0-53.0) % MCHC (31.0-37.0) g/dL RDW (11.5-15.5) % Plt Count (150-450) k/uL Lymphocytes # (1.0-4.8) k/uL Sodium (137-145) mmol/L BUN (9-20) mg/dL Creatinine (0.66-1.25) mg/dL Glucose (74-99) mg/dL POC Glucose (mg/dL) 236 H (70-110) mg/dL Transferrin (204.0-354.0) mg/dL Ferritin (22.0-322.0) ng/mL Procalcitonin (0.02-0.09) ng/mL Urine Blood (Negative) Urine Bacteria (None) /hpf Hyaline Casts (0-2) /lpf Urine Mucus (None) /hpf Assessment and Plan Assessment: Acute hypoxemic respiratory failure, secondary to CHF, in a patient with heart failure, and a preserved ejection fraction (HFPEF). Recent admission to this hospital, with an episode of respiratory failure secondary to CHF, pneumonia, and atrial fibrillation/RVR, requiring cardioversion. History of renal transplantation, [facility], 2013. History of previous bypass grafting, [facility], 2019. Chronic kidney disease. History of hypertension. Possible underlying COPD, from previous tobacco use. History of dyslipidemia. History of diabetes mellitus. History of gout. Obesity. History of CVA, age 42. Plan: Plan dated March 10, 2024. The patient is seen in the emergency department, room 5. He is moved to the intensive care unit, for closer monitoring and management. The patient will be placed on BiPAP. He did well on BiPAP the last time he was here. In addition, we will start the patient on dobutamine at 5 mcg/kg/min. He has been seen by cardiology. Will have nephrology see the patient as well. We will check a trough tacrolimus level. Additional recommendations and suggestions are forthcoming. We also will check a procalcitonin level. Labs, x-rays, and medications are reviewed. The patient's overall prognosis remains very guarded. Plan dated March 11, 2024. The patient appears to be doing much better today than yesterday. He is much more awake and alert. Although his speech is garbled, he is much more understandable today. He is certainly less confused today. Labs, x-rays, medications are reviewed. He is seen in room 264. He is currently on nasal cannula. He will be placed back on BiPAP. Dobutamine was discontinued by cardiology. The patient started on a Lasix drip at 10 mg an hour. Will get a trough tacrolimus level. Additional recommendations and suggestions are forthcoming. Time with Patient: Greater than 30
[2024-03-11 17:02] LABS: Glucose,Whole Blood 288 mg/dL (70-110)
--- NOTE | 2024-03-11 18:45 | P.PN ---
Subjective Progress Note Date: 03/11/24 Patient was initially seen by Dr. Lew Ly. Please refer to his note for details. Patient is a 68-year-old male presented with altered mental status, likely due to toxic metabolic encephalopathy. Patient had low blood sugar of 49. He was short of breath. Routine EEG showed mild encephalopathy. Patient denies headache. He states he is feeling "all right". Some of the work-up during this hospital visit consisted of: During this admission the patient has oxygen level of 93 on 3 L nasal cannula. Creatinine is 3.46 and BUN is 75. Phosphorus 4.9 Sodium is 135. Initial serum glucose is 95 and had POC glucose of 56. CT of the head is reported as focal 3.4 x 1.5 cm area of CSF density lateral right middle cranial fossa is unchanged. Correlate for area of previous in farct/encephalomalacia versus underlying arachnoid cyst. 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 2D echo is reported as normal left ventricle systolic function. By prosthetic valve in the aortic position with peak gradient 37 mm and mean gradient 19 across the valve with trace regurgitation. Moderate mitral regurgitation. Objective - Vital Signs Vital signs: Vital Signs Temp 98.3 F 03/11/24 12:00 Pulse 112 H 03/11/24 17:00 Resp 13 03/11/24 17:00 BP 108/60 03/11/24 17:00 Pulse Ox 97 03/11/24 17:00 FiO2 40 03/11/24 15:41 Intake & Output 03/10/24 03/11/24 03/11/24 18:59 06:59 18:59 Intake Total 80 926.458 722.571 Output Total 595 830 660 Balance -515 96.458 62.571 Weight 98.883 kg 101.9 kg Intake: IV 80 120 210 0.9 80 120 110 Magnesium Sulfate-D5w Pmx 100 1 gm In Dextrose/Water 1 100ml.bag @ 100 mls/hr IVPB ONCE ONE Rx#: [id number] Intake, IV Titration 246.458 112.571 Amount DOBUTamine DRIP 500 mg In 246.458 45.238 Dextrose/Water 1 250ml. bag @ 5 MCG/KG/MIN 14.832 mls/hr IV .[id number] [facility] Rx#:[id number] Furosemide 100 mg In 67.333 Sodium Chloride 0.9% 90 ml @ 10 MG/HR 10 mls/hr IV .Q10H [facility] Rx#: [id number] Oral 560 400 Output: Urine 595 830 660 Uretheral (Cintron) 300 Other: Voiding Method Indwelling Catheter Indwelling Catheter Indwelling Catheter # Bowel Movements 1 - Exam Patient is alert and awake. His speech and language functions are normal. Patient is fully oriented. He knows it is March 2024 and that he is in [facility] in [place] and name of the current president Mr. Arango. He can name and repeat very well.'' Pupils are equal, round and reacting, visual gage are full, face is symmetric and tongue protrudes midline. On muscle strength testing, there is no pronator drift and the strength is normal in arms and legs, except right hand which is weak mainly involving the finger extension particularly involving the ring and middle finger which is about 1-2. 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 Sensory to touch is equal with no neglect. No ataxia for [id number] testing. - Labs CBC & Chem 7: 03/11/24 05:33 03/11/24 05:33 Labs: Abnormal Lab Results - Last 24 Hours (Table) 03/10/24 03/11/24 03/11/24 Range/Units 21:45 05:33 05:33 RBC 2.50 L (4.30-5.90) m/uL Hgb 7.2 L (13.0-17.5) gm/dL Hct 24.2 L (39.0-53.0) % MCHC 29.7 L (31.0-37.0) g/dL RDW 16.5 H (11.5-15.5) % Plt Count 113 L (150-450) k/uL Lymphocytes # 0.6 L (1.0-4.8) k/uL Sodium 132 L (137-145) mmol/L BUN 83 H (9-20) mg/dL Creatinine 3.76 H (0.66-1.25) mg/dL Glucose 208 H (74-99) mg/dL POC Glucose (mg/dL) 182 H (70-110) mg/dL 03/11/24 03/11/24 03/11/24 Range/Units 07:00 11:36 17:01 RBC (4.30-5.90) m/uL Hgb (13.0-17.5) gm/dL Hct (39.0-53.0) % MCHC (31.0-37.0) g/dL RDW (11.5-15.5) % Plt Count (150-450) k/uL Lymphocytes # (1.0-4.8) k/uL Sodium (137-145) mmol/L BUN (9-20) mg/dL Creatinine (0.66-1.25) mg/dL Glucose (74-99) mg/dL POC Glucose (mg/dL) 317 H 236 H 288 H (70-110) mg/dL Assessment and Plan Assessment: This is a 68-year-old gentleman who presents because shortness of breath, blood in the stool and arrhythmia. Neurology is consulted for altered mental status. Altered Mental status seems due to Metabolic encephalopathy. Has a glucose today as low as 49. As well as mild hypoxic encephalopathy Hypoglycemia as low as 49 Acute on chronic kidney insufficiency Short of breath Hypoxia History of previous stroke over the right temporal cerebellar. Diabetes mellitus History of CABG Congestive heart failure History of aortic valve replacement History of paroxysmal atrial fibrillation on Eliquis History of end-stage renal disease status post renal transplant about 10 years ago Hypertension Hyperlipidemia History of peripheral arterial disease History of chronic neck issues, with right hand weakness, going on for year (not new finding). Patient follows up with Dr. Guerra Plan: Patient's mentation appears to be normal at this time. He is fully oriented. Offers no complaints. EEG was abnormal due to background slowing, suggestive of mild encephalopathy. Otherwise no focal slowing, epileptiform discharges were seen. Ammonia <9, vitamin B12 829, folate 7.90 Patient had a recent TSH about a month ago which was normal therefore no need for repeat. Patient is on Eliquis 2.5 mg twice daily, aspirin 81, Lipitor 40 mg. Nephrology, cardiology and pulmonary team are consulted. Will defer the rest of the medical management to primary and other specialties on board.
--- NOTE | 2024-03-11 19:24 | P.PN ---
Subjective Progress Note Date: 03/11/24 Assumed care of this patient from his primary provider. He is evaluated in follow up in the ICU. Patient has been continued on IV dobutamine overnight. He will taken off today and nephrology is starting IV lasix gtt. Echocardiogram comes back with normal LV function. His EEG reveals no seizure like activity. Chest xray today reveals right lower lung airspace opacities. Correlate for pneumonia. There is thyromegaly with mild pulmonary edema. Patient is currently alert x 2-3 he is lethargic. His blood work reveals a white blood cell count of 6.3, hgb 7.2, platelet count of 113, sodium level 132, BUN 83, creatinine 3.76. Magnesium 1.9. Blood glucose in the 200s. Procalcitonin 0.15. Heart rate is in the 110s. Patient is complaining of right sided neck pain and numbness/tingling down to his hand. Review of Systems Constitutional: Denied any fatigue denied any fever. Cardio vascular: denied any chest pain, palpitations Gastrointestinal: denied any nausea, vomiting, diarrhea Pulmonary: Reports shortness of breath, no cough Neurologic denied any new focal deficits diffuse weakness. All inpatient medications were reviewed and appropriate changes in these medications as dictated in the interval history and assessment and plan. PHYSICAL EXAMINATION: GENERAL: The patient is alert and oriented x2-3, not in any acute distress. Well developed, well nourished. Obese. HEENT: Pupils are round and equally reacting to light. EOMI. No scleral icterus. No conjunctival pallor. Normocephalic, atraumatic. No pharyngeal erythema. No thyromegaly. CARDIOVASCULAR: S1 and S2 present. No murmurs, rubs, or gallops. PULMONARY: Chest is clear to auscultation, no wheezing or crackles. ABDOMEN: Soft, nontender, nondistended, normoactive bowel sounds. No palpable organomegaly. MUSCULOSKELETAL: No joint swelling or deformity. EXTREMITIES: No cyanosis, clubbing, Pitting lower extremity edema bilaterally. NEUROLOGICAL: Gross neurological examination did not reveal any focal deficits. Diffuse weakness. Contracted 2 and 3 fingers on the right hand. SKIN: No rashes. Reports ASSESSMENT AND PLAN: _Severe altered mental status: Acute toxic and metabolic encephalopathy nue rology following. Patient is also having hypoglycemia. _Acute kidney injury with worsening kidney function 1 stage II chronic kidney disease, with much worsening GFR down to 17 patient does not require dialysis yet. Nephrology following has been on dobutamine gtt. _Acute respiratory failure due to acute CHF. Pulmonology recommending to place the patient back on BiPAP. _Acute on chronic heart failure, systolic dysfunction with cardiorenal syndrome. Started on IV lasix gtt, nephrology following. Monitor renal function. _Severe arrhythmia: Mostly sinus or junctional rhythm with tachycardia and looks like a flutter in between, despite the treatment from last time still much worsening with continue smaller dose of amiodarone along with Cardizem and metoprolol and still on anticoagulation. _Coronary artery disease post bypass surgery from 2019 has not had any chest pain or angina and even if there is a complaint so far patient is not in any condition to go for an intervention. _GI bleed mostly severe hemorrhoid not significant drop in hemoglobin at this point but still at 8.2 will consult general surgery for checking his rectal area and terminal sigmoid. _Type 2 diabetes not well-controlled noncompliance to medication has been mostly on Lantus 70 units daily along with NovoLog 35 units AC meals plus sliding scales coverage. Titrate insulin as needed. Monitor for hypoglycemia. _End-stage renal disease posttransplant remain on antirejection drugs will consult nephrology continue mycophenolate acid along with Prograf and still on prednisone 5 mg daily. _Hypertension: Remain on diltiazem CD2 140 mg a day, metoprolol titrate 100 mg 3 times a day continue medication. _Hyperlipidemia: Has been on Lipitor 40 mg a day _BPH watch for any urinary retention. _Anticoagulation: Was on Eliquis 2.5 mg twice a day hold medication at this point with the GI bleed is better -Cervical radiculopathy following with pasia per patient being worked up as an outpatient for cervical surgery. _GI prophylaxis: Patient be on Pepcid 20 mg daily. CODE STATUS: Full code. Patient is followed by cardiology, pulmonary, nephrology, neurology. Continue ICU care. Plan for IV lasix gtt today. Monitor intake and output. Avoid nephrotoxic agents. Repeat blood work in the AM. PT/OT when appropriate. The impression and plan of care has been dictated by Tania Epperson, Nurse Practitioner as directed. Dr. Brad MD I have performed a history and physical examination and medical decision making of this patient, discussed the same with the dictator, and agree with the dictators assessment and plan as written, documented as a scribe. Based on total visit time, I have performed more than 50% of this visit. Objective - Vital Signs Vital signs: Vital Signs Temp 98.3 F 03/11/24 12:00 Pulse 113 H 03/11/24 19:00 Resp 27 H 03/11/24 19:00 BP 99/57 03/11/24 19:00 Pulse Ox 100 03/11/24 19:00 FiO2 40 03/11/24 15:41 Intake & Output 03/11/24 03/11/24 03/12/24 06:59 18:59 06:59 Intake Total 926.458 732.571 10 Output Total 830 710 50 Balance 96.458 22.571 -40 Weight 101.9 kg Intake: IV 120 220 10 0.9 120 120 10 Magnesium Sulfate-D5w Pmx 100 1 gm In Dextrose/Water 1 100ml.bag @ 100 mls/hr IVPB ONCE ONE Rx#: [id number] Intake, IV Titration 246.458 112.571 Amount DOBUTamine DRIP 500 mg In 246.458 45.238 Dextrose/Water 1 250ml. bag @ 5 MCG/KG/MIN 14.832 mls/hr IV .[id number] [facility] Rx#:[id number] Furosemide 100 mg In 67.333 Sodium Chloride 0.9% 90 ml @ 10 MG/HR 10 mls/hr IV .Q10H [facility] Rx#: [id number] Oral 560 400 Output: Urine 830 710 50 Other: Voiding Method Indwelling Catheter Indwelling Catheter # Bowel Movements 1 1 - Labs CBC & Chem 7: 03/11/24 05:33 03/11/24 05:33 Labs: Abnormal Lab Results - Last 24 Hours (Table) 03/10/24 03/11/24 03/11/24 Range/Units 21:45 05:33 05:33 RBC 2.50 L (4.30-5.90) m/uL Hgb 7.2 L (13.0-17.5) gm/dL Hct 24.2 L (39.0-53.0) % MCHC 29.7 L (31.0-37.0) g/dL RDW 16.5 H (11.5-15.5) % Plt Count 113 L (150-450) k/uL Lymphocytes # 0.6 L (1.0-4.8) k/uL Sodium 132 L (137-145) mmol/L BUN 83 H (9-20) mg/dL Creatinine 3.76 H (0.66-1.25) mg/dL Glucose 208 H (74-99) mg/dL POC Glucose (mg/dL) 182 H (70-110) mg/dL 03/11/24 03/11/24 03/11/24 Range/Units 07:00 11:36 17:01 RBC (4.30-5.90) m/uL Hgb (13.0-17.5) gm/dL Hct (39.0-53.0) % MCHC (31.0-37.0) g/dL RDW (11.5-15.5) % Plt Count (150-450) k/uL Lymphocytes # (1.0-4.8) k/uL Sodium (137-145) mmol/L BUN (9-20) mg/dL Creatinine (0.66-1.25) mg/dL Glucose (74-99) mg/dL POC Glucose (mg/dL) 317 H 236 H 288 H (70-110) mg/dL Assessment and Plan Time with Patient: Less than 30
[2024-03-12 04:08] LABS: Anisocytosis Slight; Basophils % (A) 0 %; Eosinophils # (A) 0.1 k/uL (0-0.7); Eosinophils % (A) 2 %; HCT 23.8 % (39.0-53.0); HGB 7.2 gm/dL (13.0-17.5); Hypochromasia Marked; Lymphocytes # (A) 0.8 k/uL (1.0-4.8); Lymphocytes % (A) 15 %; MCH 29.3 pg (25.0-35.0); MCHC 30.4 g/dL (31.0-37.0); MCV 96.6 fL (80.0-100.0); Macrocytosis Slight; Mean Platelet Volume 8.4; Monocytes # (A) 0.4 k/uL (0-1.0); Monocytes % (A) 7 %; Neutrophils # (A) 4.1 k/uL (1.3-7.7); Neutrophils % (A) 75 %; Platelet Count 134 k/uL (150-450); RBC 2.46 m/uL (4.30-5.90); RDW 16.4 % (11.5-15.5); WBC 5.5 k/uL (3.8-10.6)
[2024-03-12 04:23] LABS: African American GFR (CKD) 20 (>60 ml/min/1.73 sqM); Anion Gap 3 mmol/L; Blood Urea Nitrogen 80 mg/dL (9-20); Calcium 8.6 mg/dL (8.4-10.2); Carbon Dioxide 25 mmol/L (22-30); Chloride 102 mmol/L (98-107); Glucose 243 mg/dL (74-99); Magnesium 1.9 mg/dL (1.6-2.3); Non-African American GFR(CKD) 17 (>60 ml/min/1.73 sqM); Potassium 4.3 mmol/L (3.5-5.1); Sodium 130 mmol/L (137-145)
[2024-03-12] MEDS: MAGNESIUM SULFATE-D5W PMX 1 GM in DEXTROSE/WATER 1 100ML.BAG IVPB ONE ×2 (06:22→07:40)
[2024-03-12 07:02] LABS: Glucose,Whole Blood 313 mg/dL (70-110)
--- NOTE | 2024-03-12 07:21 | XR ---
EXAMINATION TYPE: XR chest 1V portable DATE OF EXAM: 03/12/2024 5:47 AM CLINICAL INDICATION:Male, 68 years old with history of CHF; [facility] COMPARISON: Chest radiographs from 03/11/2024 TECHNIQUE: XR chest 1V portable Frontal view of the chest. FINDINGS: Lungs/Pleura: There is no evidence of pleural effusion, focal consolidation, or pneumothorax. Pulmonary vascularity: Unremarkable. Heart/mediastinum: Cardiomediastinal silhouette is unremarkable. Musculoskeletal: No acute osseous pathology. Midline sternotomy wires are noted. IMPRESSION: 1. Right lower lung airspace opacities, similar to prior. Correlate for pneumonia. 2. Cardiomegaly with mild pulmonary edema.
--- NOTE | 2024-03-12 08:31 | P.PN ---
Subjective Progress Note Date: 03/12/24 Principal diagnosis: SOB The patient is a 68-year-old gentleman with a past medical history significant for CAD status post CABG as well as history of heart failure with a preserved ejection fraction and also atrial fibrillation and valvular heart disease status post aortic valve replacement and hypertension and dyslipidemia and renal transplant as well as multiple comorbid conditions who was admitted to the hospital with acute hypoxic respiratory failure associated with change in mental status. March 11, 2024 The patient was seen and evaluated this morning. He is lethargic. He continues to be on BiPAP. The echo showed normal LV systolic function with bioprosthetic aortic valve and a peak gradient of about 20 mmHg across the valve. Currently he is on dobutamine. I am going to stop the dobutamine in the light of the patient having normal LV systolic function and beside that he is hemodynamically stable as [id number] currently he is somewhat tachycardic. He continues to be on IV diuretics. Creatinine remains elevated. the examination is remarkable for change in mental status with a stable vital signs besides tachycardia and regular rate and rhythm and systolic murmur and diminished breathing sounds bilaterally and no edema was noted in the lower extremities March 12, 2024 The patient was seen and evaluated this morning. He is mentation has improved somewhat. He remains hemodynamically stable beside being slightly tachycardic. He is on amiodarone and he is on Cardizem and beside that I am going to start the patient on small dose of beta-amy with metoprolol and uptitrate the dose if the pressure permits. He still in overt heart failure with bilateral lower extremities edema and he is still hypoxic requiring BiPAP. No symptoms of chest pain or chest discomfort. He is on oral anticoagulation. He was started on Lasix drip by the nephrology service. The examination is remarkable for regular rhythm with sinus tachycardia and diminished breathing sounds bilaterally and moderate bilateral lower extremities edema Assessment Acute hypoxic respiratory failure Heart failure with a preserved ejection fraction Change in mental status Renal failure and history of renal transplant Valvular heart disease as described above Multiple comorbid conditions Plan Continue the current medical regimen Start the patient on small dose of beta-amy DC hydralazine in the light of margin blood pressure Monitor the kidney function and electrolytes Monitor the hemoglobin and consider transfusion if the hemoglobin drop below 7 Follow-up with the patient Objective - Vital Signs Vital signs: Vital Signs Temp 98.9 F 03/12/24 04:00 Pulse 117 H 03/12/24 08:16 Resp 18 03/12/24 07:30 BP 100/56 03/12/24 07:30 Pulse Ox 99 03/12/24 08:19 FiO2 40 03/12/24 04:00 Intake & Output 03/11/24 03/12/24 03/12/24 18:59 06:59 18:59 Intake Total 732.571 310 10 Output Total 710 1030 150 Balance 22.571 -720 -140 Weight 98.1 kg Intake: IV 220 210 10 0.9 120 110 10 Magnesium Sulfate-D5w Pmx 100 100 1 gm In Dextrose/Water 1 100ml.bag @ 100 mls/hr IVPB ONCE ONE Rx#: [id number] Intake, IV Titration 112.571 100 Amount DOBUTamine DRIP 500 mg In 45.238 Dextrose/Water 1 250ml. bag @ 5 MCG/KG/MIN 14.832 mls/hr IV .[id number] [facility] Rx#:[id number] Furosemide 100 mg In 67.333 100 Sodium Chloride 0.9% 90 ml @ 10 MG/HR 10 mls/hr IV .Q10H [facility] Rx#: [id number] Oral 400 Output: Urine 710 1030 150 Other: Voiding Method Indwelling Catheter Indwelling Catheter # Bowel Movements 1 1 - Labs CBC & Chem 7: 03/12/24 03:19 03/12/24 03:19 Labs: Abnormal Lab Results - Last 24 Hours (Table) 03/11/24 03/11/24 03/12/24 Range/Units 11:36 17:01 03:19 RBC (4.30-5.90) m/uL Hgb (13.0-17.5) gm/dL Hct (39.0-53.0) % MCHC (31.0-37.0) g/dL RDW (11.5-15.5) % Plt Count (150-450) k/uL Lymphocytes # (1.0-4.8) k/uL Sodium 130 L (137-145) mmol/L BUN 80 H (9-20) mg/dL Creatinine 3.49 H (0.66-1.25) mg/dL Glucose 243 H (74-99) mg/dL POC Glucose (mg/dL) 236 H 288 H (70-110) mg/dL 03/12/24 03/12/24 Range/Units 03:19 07:00 RBC 2.46 L (4.30-5.90) m/uL Hgb 7.2 L (13.0-17.5) gm/dL Hct 23.8 L (39.0-53.0) % MCHC 30.4 L (31.0-37.0) g/dL RDW 16.4 H (11.5-15.5) % Plt Count 134 L (150-450) k/uL Lymphocytes # 0.8 L (1.0-4.8) k/uL Sodium (137-145) mmol/L BUN (9-20) mg/dL Creatinine (0.66-1.25) mg/dL Glucose (74-99) mg/dL POC Glucose (mg/dL) 313 H (70-110) mg/dL Microbiology - Last 24 Hours (Table) 03/10/24 12:54 Blood Culture - Preliminary Blood
[2024-03-12] MEDS: ACETAMINOPHEN TAB 325 MG TAB PO PRN (08:51)
[2024-03-12] MEDS: METOPROLOL TARTRATE 25 MG TAB PO SCH (08:51)
--- NOTE | 2024-03-12 10:12 | P.PN ---
Subjective Patient is seen in follow-up for acute kidney injury on chronic kidney disease. Renal function little better. On Lasix drip. Urine output 50 to 100 cc an hour. Vital signs are stable. General: No acute distress. HEENT: Head exam is unremarkable. On nasal cannula. LUNGS: No audible rhonchi or wheezes. HEART: Rate and Rhythm are regular. ABDOMEN: Nontender. EXTREMITITES: 2+ edema. Objective - Vital Signs Vital signs: Vital Signs Temp 98.3 F 03/12/24 08:00 Pulse 120 H 03/12/24 09:00 Resp 29 H 03/12/24 09:00 BP 124/66 03/12/24 09:00 Pulse Ox 97 03/12/24 09:00 FiO2 40 03/12/24 09:00 Intake & Output 03/11/24 03/12/24 03/12/24 18:59 06:59 18:59 Intake Total 732.571 310 630 Output Total 710 1030 250 Balance 22.571 -720 380 Weight 98.1 kg Intake: IV 220 210 130 0.9 120 110 30 Magnesium Sulfate-D5w Pmx 100 100 1 gm In Dextrose/Water 1 100ml.bag @ 100 mls/hr IVPB ONCE ONE Rx#: [id number] Magnesium Sulfate-D5w Pmx 100 1 gm In Dextrose/Water 1 100ml.bag @ 100 mls/hr IVPB ONCE ONE Rx#: [id number] Intake, IV Titration 112.571 100 Amount DOBUTamine DRIP 500 mg In 45.238 Dextrose/Water 1 250ml. bag @ 5 MCG/KG/MIN 14.832 mls/hr IV .[id number] [facility] Rx#:[id number] Furosemide 100 mg In 67.333 100 Sodium Chloride 0.9% 90 ml @ 10 MG/HR 10 mls/hr IV .Q10H [facility] Rx#: [id number] Oral 400 500 Output: Urine 710 1030 250 Other: Voiding Method Indwelling Catheter Indwelling Catheter Indwelling Catheter # Bowel Movements 1 1 1 - Labs CBC & Chem 7: 03/12/24 03:19 03/12/24 03:19 Labs: Abnormal Lab Results - Last 24 Hours (Table) 03/11/24 03/11/24 03/12/24 Range/Units 11:36 17:01 03:19 RBC (4.30-5.90) m/uL Hgb (13.0-17.5) gm/dL Hct (39.0-53.0) % MCHC (31.0-37.0) g/dL RDW (11.5-15.5) % Plt Count (150-450) k/uL Lymphocytes # (1.0-4.8) k/uL Sodium 130 L (137-145) mmol/L BUN 80 H (9-20) mg/dL Creatinine 3.49 H (0.66-1.25) mg/dL Glucose 243 H (74-99) mg/dL POC Glucose (mg/dL) 236 H 288 H (70-110) mg/dL 03/12/24 03/12/24 Range/Units 03:19 07:00 RBC 2.46 L (4.30-5.90) m/uL Hgb 7.2 L (13.0-17.5) gm/dL Hct 23.8 L (39.0-53.0) % MCHC 30.4 L (31.0-37.0) g/dL RDW 16.4 H (11.5-15.5) % Plt Count 134 L (150-450) k/uL Lymphocytes # 0.8 L (1.0-4.8) k/uL Sodium (137-145) mmol/L BUN (9-20) mg/dL Creatinine (0.66-1.25) mg/dL Glucose (74-99) mg/dL POC Glucose (mg/dL) 313 H (70-110) mg/dL Microbiology - Last 24 Hours (Table) 03/10/24 12:54 Blood Culture - Preliminary Blood Assessment and Plan Plan: Assessment: 1. Acute kidney injury secondary to ATN secondary to cardiorenal syndrome. Creatinine 4.1 yesterday and is 3.49 today. No hydronephrosis noted on ultrasound. 2. Chronic kidney disease stage IIIb with baseline creatinine 1.8-2. 3. Acute hypoxic respiratory failure. 4. Volume overload. Improving with diuresis. 5. Acute on chronic diastolic CHF and moderate mitral regurgitation. 6. Anemia of chronic kidney disease. Iron replete. 7. Diabetes mellitus. 8. A-fib. 9. Hypertension with chronic kidney disease. Stable. 10. Hypervolemic hyponatremia. Plan: Maintain Lasix drip. Strict I's and O's. Has Cintron catheter. Low-salt diet and 1200 cc fluid restriction. Avoid nephrotoxins. Continue to monitor renal function and urine output. Maintain home antirejection medications. Follow-up tacrolimus level. Add Aranesp.
[2024-03-12] MEDS: DARBEPOETIN ALFA 40 MCG/0.4 ML SYRINGE SQ SCH (11:08)
--- NOTE | 2024-03-12 12:02 | P.PN ---
Subjective Progress Note Date: 03/12/24 Principal diagnosis: Respiratory failure. Pulmonary/critical care consult, March 10, 2024. 68-year-old male who was recently inpatient here, for an episode of CHF, pneumonia, and atrial fibrillation with RVR. The patient was discharged from this hospital, and went to [facility]. He was discharged from [facility] on March 07. He was brought back to the hospital, by EMS, yesterday, March 09. He apparently was confused and very lethargic. He had lower extremity edema. He apparently was having difficulty breathing, and he could not be managed at home by his family, so EMS was called. The patient is seen today in the emergency department, room 5. He is currently on 3 L. He is very lethargic and somnolent. He had a blood gas showing a pO2 of 75, pCO2 of 55, pH is 7.31. His N-terminal proBNP was 7190. The patient's chest x-ray was consistent with CHF. My plan is to move the patient to the intensive care unit, start him on dobutamine, and BiPAP. He has been seen by cardiology already. On his last visit here, the patient did require a cardioversion for his atrial fibrillation, and, he received diuretics, and antibiotics. Current laboratory data includes a white count 6.62, hemoglobin 7.7, hematocrit 26.1, and a platelet count of 136,000. Sodium 139, potassium 5.2, chlorides 103, CO2 24, BUN 76, and creatinine 4.1. Glucose is 100. Calcium 9.3. Albumin is 3.3. Troponins were negative x 2. Chest x-ray is consistent with cardiomegaly, and CHF. Brain CT shows a 3.4 x 1.5 cm area in the lateral right middle cranial fossa, which is unchanged, and consistent with a previous infarct/encephalomalacia. 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 In addition, the patient has chronic vessel ischemic disease. Progress note dated March 11, 2024. 68-year-old male with a history of multiple medical problems, was seen yesterday in the emergency department. We moved him to the ICU and placed him on BiPAP, with settings of 12/5, and 40%. I also initially placed him on dobutamine at 5 mcg/kg/min. The patient is getting saline at 10 cc an hour. Off of BiPAP, he is on 4 L nasal cannula. Cardiology turned to dobutamine off given his normal ejection fraction. The patient be started on a Lasix drip at 10 mg an hour. Clinically, the patient looks better today than he did yesterday. He is much more awake and alert although his speech is a bit garbled. Current labs are good white count 6.3, hemoglobin 7.2, hematocrit 24.2, and a platelet count of 113,000. Sodium 132, potassium 4.9, chlorides 103, CO2 25, BUN 83, creatinine 3.76. Glucose is 236. Chest x-ray is improved. The patient's procalcitonin level was 0.15. The most recent N-terminal proBNP was 7190. Progress note dated March 12, 2024. 68-year-old male with a history of multiple medical problems including kidney transplantation, CABG/aortic valve replacement, pneumonia, CHF, atrial fibrillation, etc. The patient was recently inpatient here, and was discharged to a local alf. After short period of time there, he was discharged home, but did poorly at home, and was brought back to the emergency room. Currently, he is on BiPAP, with settings of 12/5, 40%. He wore it all night. If he is not wearing BiPAP, he is on nasal O2 at between 3 to 4 L/min. The patient is getting saline at 10 cc an hour, and a Lasix drip at 10 mg an hour. White count is 5.5, hemoglobin 7.2, hematocrit 23.8, platelet count 134,000. Sodium 130, potassium 4.3, chlorides 102, CO2 25, BUN 80, creatinine 3.49. The patient's glucose is 313. Blood cultures are negative. Chest x-ray shows right lower lobe airspace opacities. There is cardiomegaly, and pulmonary vascular congestion. Objective - Vital Signs Vital signs: Vital Signs Temp 98.3 F 03/12/24 08:00 Pulse 118 H 03/12/24 10:00 Resp 16 03/12/24 10:00 BP 114/58 03/12/24 10:00 Pulse Ox 96 03/12/24 10:00 FiO2 40 03/12/24 09:00 Intake & Output 03/11/24 03/12/24 03/12/24 18:59 06:59 18:59 Intake Total 732.571 310 717.667 Output Total 710 1030 310 Balance 22.571 -720 407.667 Weight 98.1 kg Intake: IV 220 210 140 0.9 120 110 40 Magnesium Sulfate-D5w Pmx 100 100 1 gm In Dextrose/Water 1 100ml.bag @ 100 mls/hr IVPB ONCE ONE Rx#: [id number] Magnesium Sulfate-D5w Pmx 100 1 gm In Dextrose/Water 1 100ml.bag @ 100 mls/hr IVPB ONCE ONE Rx#: [id number] Intake, IV Titration 112.571 100 77.667 Amount DOBUTamine DRIP 500 mg In 45.238 Dextrose/Water 1 250ml. bag @ 5 MCG/KG/MIN 14.832 mls/hr IV .[id number] [facility] Rx#:[id number] Furosemide 100 mg In 67.333 100 77.667 Sodium Chloride 0.9% 90 ml @ 10 MG/HR 10 mls/hr IV .Q10H [facility] Rx#: [id number] Oral 400 500 Output: Urine 710 1030 310 Other: Voiding Method Indwelling Catheter Indwelling Catheter Indwelling Catheter # Bowel Movements 1 1 1 - Exam No acute distress, much more awake and alert than yesterday. Currently on 4 L. HEENT examination is grossly unremarkable. Neck supple. Full range of motion. No adenopathy thyromegaly or neck vein distention. Cardiovascular examination reveals regular rhythm rate. S1-S2 normal. No S3 or S4. No discernible murmur noted. Heart rate 101 bpm. Heart sounds are distant. Lungs reveal scattered crackles and rhonchi. No wheezes. Breath sounds equal. Saturation is 96% on 4 L. Abdomen soft without bowel sounds. No masses or tenderness. Abdomen is obese. Extremities are intact. No cyanosis or clubbing. 2+ edema is noted. Skin is without rash or lesion. Neurologic examination is brief but nonfocal. - Labs CBC & Chem 7: 03/12/24 03:19 03/12/24 03:19 Labs: Abnormal Lab Results - Last 24 Hours (Table) 03/11/24 03/12/24 03/12/24 Range/Units 17:01 03:19 03:19 RBC 2.46 L (4.30-5.90) m/uL Hgb 7.2 L (13.0-17.5) gm/dL Hct 23.8 L (39.0-53.0) % MCHC 30.4 L (31.0-37.0) g/dL RDW 16.4 H (11.5-15.5) % Plt Count 134 L (150-450) k/uL Lymphocytes # 0.8 L (1.0-4.8) k/uL Sodium 130 L (137-145) mmol/L BUN 80 H (9-20) mg/dL Creatinine 3.49 H (0.66-1.25) mg/dL Glucose 243 H (74-99) mg/dL POC Glucose (mg/dL) 288 H (70-110) mg/dL 03/12/24 Range/Units 07:00 RBC (4.30-5.90) m/uL Hgb (13.0-17.5) gm/dL Hct (39.0-53.0) % MCHC (31.0-37.0) g/dL RDW (11.5-15.5) % Plt Count (150-450) k/uL Lymphocytes # (1.0-4.8) k/uL Sodium (137-145) mmol/L BUN (9-20) mg/dL Creatinine (0.66-1.25) mg/dL Glucose (74-99) mg/dL POC Glucose (mg/dL) 313 H (70-110) mg/dL Microbiology - Last 24 Hours (Table) 03/10/24 12:54 Blood Culture - Preliminary Blood Assessment and Plan Assessment: Acute hypoxemic respiratory failure, secondary to CHF, in a patient with heart failure, and a preserved ejection fraction (HFPEF). Recent admission to this hospital, with an episode of respiratory failure secondary to CHF, pneumonia, and atrial fibrillation/RVR, requiring cardioversion. History of renal transplantation, [facility], 2013. History of previous bypass grafting/AVR, [facility], 2019. Chronic kidney disease. History of hypertension. Possible underlying COPD, from previous tobacco use. History of dyslipidemia. History of diabetes mellitus. History of gout. Obesity. History of CVA, age 42. Plan: Plan dated March 10, 2024. The patient is seen in the emergency department, room 5. He is moved to the intensive care unit, for closer monitoring and management. The patient will be placed on BiPAP. He did well on BiPAP the last time he was here. In addition, we will start the patient on dobutamine at 5 mcg/kg/min. He has been seen by cardiology. Will have nephrology see the patient as well. We will check a trough tacrolimus level. Additional recommendations and suggestions are forthcoming. We also will check a procalcitonin level. Labs, x-rays, and medications are reviewed. The patient's overall prognosis remains very guarded. Plan dated March 11, 2024. The patient appears to be doing much better today than yesterday. He is much more awake and alert. Although his speech is garbled, he is much more understandable today. He is certainly less confused today. Labs, x-rays, medi cations are reviewed. He is seen in room 264. He is currently on nasal cannula. He will be placed back on BiPAP. Dobutamine was discontinued by cardiology. The patient started on a Lasix drip at 10 mg an hour. Will get a trough tacrolimus level. Additional recommendations and suggestions are forthcoming. Plan dated March 12, 2024. The patient is again seen in the ICU. He is in room 264. The patient was seen while on BiPAP, with settings of 12/5, and 40%. He is on a Lasix drip at 10 mg an hour. He is getting saline at 10 cc an hour. He has been on BiPAP all night. Sometime today, we will switch him to nasal cannula at 4 L. The patient is doing a bit better today. He is less short of breath. He is got quite a bit of edema in the lower extremities. He continues on a Lasix drip at 10 mg an hour. Labs, x-rays, and medications are reviewed. He is adamant about not going to a alf on discharge. His family cannot handle him at home, so that will be something that we will have to figure out. Time with Patient: Greater than 30
[2024-03-12 12:05] LABS: Glucose,Whole Blood 326 mg/dL (70-110)
[2024-03-12 16:39] LABS: Glucose,Whole Blood 341 mg/dL (70-110)
[2024-03-12] MEDS ORDERED: DEXTROSE 50% SYRINGE 50 ML IVP PRN ×2 (17:19)
--- NOTE | 2024-03-12 17:26 | P.PN ---
Subjective Progress Note Date: 03/12/24 Assumed care of this patient from his primary provider. He is evaluated in follow up in the ICU. Patient has been continued on IV dobutamine overnight. He will taken off today and nephrology is starting IV lasix gtt. Echocardiogram comes back with normal LV function. His EEG reveals no seizure like activity. Chest xray today reveals right lower lung airspace opacities. Correlate for pneumonia. There is thyromegaly with mild pulmonary edema. Patient is currently alert x 2-3 he is lethargic. His blood work reveals a white blood cell count of 6.3, hgb 7.2, platelet count of 113, sodium level 132, BUN 83, creatinine 3.76. Magnesium 1.9. Blood glucose in the 200s. Procalcitonin 0.15. Heart rate is in the 110s. Patient is complaining of right sided neck pain and numbness/tingling down to his hand. 03/12/2024 Patient is evaluated in follow up today remains in the intensive care unit. Patient continues on IV lasix gtt at 10; has had just over 1L of urine output overnight. Continues to have lower extremity edema. Patient remains on oral amiodarone and oral cardizem. Patient had a follow up chest xray today showing right lower lung airspace opacities similar to prior. Correlate for pneumonia. Cardiomegaly with mild pulmonary edema. Heart rate in the 110s remains in sinus tachycardia. Blood work today reveals white blood cell count 5.5, hgb 7.2, platelet 134, sodium level 130, BUN 80 creatinine 3.49. Blood glucose increasing into the 300s. Patient states he is refusing to return to [facility] on discharge. Review of Systems Constitutional: Denied any fatigue denied any fever. Cardio vascular: denied any chest pain, palpitations Gastrointestinal: denied any nausea, vomiting, diarrhea Pulmonary: Reports shortness of breath, no cough Neurologic denied any new focal deficits diffuse weakness. All inpatient medications were reviewed and appropriate changes in these medications as dictated in the interval history and assessment and plan. PHYSICAL EXAMINATION: GENERAL: The patient is alert and oriented x2-3, not in any acute distress. Well developed, well nourished. Obese. HEENT: Pupils are round and equally reacting to light. EOMI. No scleral icterus. No conjunctival pallor. Normocephalic, atraumatic. No pharyngeal erythema. No thyromegaly. CARDIOVASCULAR: S1 and S2 present. No murmurs, rubs, or gallops. PULMONARY: Chest is clear to auscultation, no wheezing or crackles. ABDOMEN: Soft, nontender, nondistended, normoactive bowel sounds. No palpable organomegaly. MUSCULOSKELETAL: No joint swelling or deformity. EXTREMITIES: No cyanosis, clubbing, Pitting lower extremity edema bilaterally. NEUROLOGICAL: Gross neurological examination did not reveal any focal deficits. Diffuse weakness. Contracted 2 and 3 fingers on the right hand. SKIN: No rashes. ASSESSMENT AND PLAN: _Severe altered mental status: Acute toxic and metabolic encephalopathy nuerology following. Patient is also having hypoglycemia. His mentation is improving. _Acute kidney injury with worsening kidney function 1 stage II chronic kidney disease, with much worsening GFR down to 17 patient does not require dialysis yet. Nephrology following. Off dobutamine gtt. _Acute respiratory failure due to acute CHF. Pulmonology recommending to place the patient back on BiPAP. _Acute on chronic heart failure, systolic dysfunction with cardiorenal syndrome. Started on IV lasix gtt, nephrology following. Monitor renal function. Monitor intake and output _Severe arrhythmia: appears to be sinus tachycardia continues on amiodarone, cardizem and metoprolol. _Coronary artery disease post bypass surgery from 2019 _GI bleed mostly severe hemorrhoid not significant drop in hemoglobin, iron studies are not showing iron deficiency. Continue to monitor hemoglobin. _Type 2 diabetes not well-controlled noncompliance to medication has been mostly on Lantus 70 units daily along with NovoLog 35 units AC meals plus sliding scales coverage. Titrate insulin as needed. Monitor for hypoglycemia. _End-stage renal disease posttransplant remain on antirejection drugs will consult nephrology continue mycophenolate acid along with Prograf and still on prednisone 5 mg daily. _Hypertension: Remain on diltiazem CD2 140 mg a day, metoprolol titrate 100 mg 3 times a day continue medication. _Hyperlipidemia: Has been on Lipitor 40 mg a day -paroxysmal atrial fibrillation anticoagulated with eliquis _BPH watch for any urinary retention. -Cervical radiculopathy following with pasia per patient being worked up as an outpatient for cervical surgery. _GI prophylaxis: Patient be on Pepcid 20 mg daily. -DVT prophylaxis anticoagulated with eliquis CODE STATUS: Full code. Patient is followed by cardiology, pulmonary, nephrology, neurology. Continue ICU care. Continues on IV lasix. Monitor intake and output. Avoid nephrotoxic agents. Repeat blood work in the AM. PT/OT when appropriate. The impression and plan of care has been dictated by Tania Epperson, Nurse Practitioner as directed. Dr. Brad MD I have performed a history and physical examination and medical decision making of this patient, discussed the same with the dictator, and agree with the dictators assessment and plan as written, documented as a scribe. Based on total visit time, I have performed more than 50% of this visit. Objective - Vital Signs Vital signs: Vital Signs Temp 98.1 F 03/12/24 16:00 Pulse 116 H 03/12/24 16:00 Resp 17 03/12/24 16:00 BP 130/72 03/12/24 16:00 Pulse Ox 99 03/12/24 16:00 FiO2 40 03/12/24 09:00 Intake & Output 03/11/24 03/12/24 03/12/24 18:59 06:59 18:59 Intake Total 732.900 966 5268.667 Output Total 710 1030 710 Balance 22.571 -720 567.667 Weight 98.1 kg Intake: IV 220 210 200 0.9 120 110 100 Magnesium Sulfate-D5w Pmx 100 100 1 gm In Dextrose/Water 1 100ml.bag @ 100 mls/hr IVPB ONCE ONE Rx#: [id number] Magnesium Sulfate-D5w Pmx 100 1 gm In Dextrose/Water 1 100ml.bag @ 100 mls/hr IVPB ONCE ONE Rx#: [id number] Intake, IV Titration 112.571 100 77.667 Amount DOBUTamine DRIP 500 mg In 45.238 Dextrose/Water 1 250ml. bag @ 5 MCG/KG/MIN 14.832 mls/hr IV .[id number] [facility] Rx#:[id number] Furosemide 100 mg In 67.333 100 77.667 Sodium Chloride 0.9% 90 ml @ 10 MG/HR 10 mls/hr IV .Q10H [facility] Rx#: [id number] Oral 400 1000 Output: Urine 710 1030 710 Other: Voiding Method Indwelling Catheter Indwelling Catheter Indwelling Catheter # Bowel Movements 1 1 1 - Labs CBC & Chem 7: 03/12/24 03:19 03/12/24 03:19 Labs: Abnormal Lab Results - Last 24 Hours (Table) 03/12/24 03/12/24 03/12/24 Range/Units 03:19 03:19 07:00 RBC 2.46 L (4.30-5.90) m/uL Hgb 7.2 L (13.0-17.5) gm/dL Hct 23.8 L (39.0-53.0) % MCHC 30.4 L (31.0-37.0) g/dL RDW 16.4 H (11.5-15.5) % Plt Count 134 L (150-450) k/uL Lymphocytes # 0.8 L (1.0-4.8) k/uL Sodium 130 L (137-145) mmol/L BUN 80 H (9-20) mg/dL Creatinine 3.49 H (0.66-1.25) mg/dL Glucose 243 H (74-99) mg/dL POC Glucose (mg/dL) 313 H (70-110) mg/dL 03/12/24 03/12/24 Range/Units 12:03 16:38 RBC (4.30-5.90) m/uL Hgb (13.0-17.5) gm/dL Hct (39.0-53.0) % MCHC (31.0-37.0) g/dL RDW (11.5-15.5) % Plt Count (150-450) k/uL Lymphocytes # (1.0-4.8) k/uL Sodium (137-145) mmol/L BUN (9-20) mg/dL Creatinine (0.66-1.25) mg/dL Glucose (74-99) mg/dL POC Glucose (mg/dL) 326 H 341 H (70-110) mg/dL Microbiology - Last 24 Hours (Table) 03/10/24 12:54 Blood Culture - Preliminary Blood Assessment and Plan Time with Patient: Less than 30
[2024-03-12] MEDS: INSULIN ASPART (NovoLOG) 100 UNIT/ML VIAL SQ SCH (18:06)
[2024-03-12 20:18] LABS: Glucose,Whole Blood 304 mg/dL (70-110)
[2024-03-12] MEDS: INSULIN DETEMIR (LEVEMIR) 100 UNIT/ML SYR SQ SCH (21:05)
[2024-03-13 05:10] LABS: Anisocytosis Slight; Basophils % (A) 0 %; Eosinophils # (A) 0.2 k/uL (0-0.7); Eosinophils % (A) 4 %; HGB 7.2 gm/dL (13.0-17.5); Hypochromasia Marked; Lymphocytes # (A) 0.8 k/uL (1.0-4.8); Lymphocytes % (A) 15 %; MCH 29.8 pg (25.0-35.0); MCHC 31.2 g/dL (31.0-37.0); MCV 95.4 fL (80.0-100.0); Mean Platelet Volume 8.5; Monocytes # (A) 0.3 k/uL (0-1.0); Monocytes % (A) 6 %; Neutrophils # (A) 3.7 k/uL (1.3-7.7); Neutrophils % (A) 74 %; Platelet Count 130 k/uL (150-450); RBC 2.41 m/uL (4.30-5.90); RDW 16.3 % (11.5-15.5); WBC 5.1 k/uL (3.8-10.6)
[2024-03-13 05:43] LABS: African American GFR (CKD) 23 (>60 ml/min/1.73 sqM); Anion Gap 6 mmol/L; Blood Urea Nitrogen 78 mg/dL (9-20); Calcium 8.7 mg/dL (8.4-10.2); Carbon Dioxide 24 mmol/L (22-30); Chloride 99 mmol/L (98-107); Glucose 234 mg/dL (74-99); Magnesium 1.9 mg/dL (1.6-2.3); Non-African American GFR(CKD) 20 (>60 ml/min/1.73 sqM); Potassium 4.3 mmol/L (3.5-5.1); Sodium 129 mmol/L (137-145)
[2024-03-13 06:26] LABS: Glucose,Whole Blood 267 mg/dL (70-110)
[2024-03-13] MEDS: MAGNESIUM SULFATE-D5W PMX 1 GM in DEXTROSE/WATER 1 100ML.BAG IVPB ONE (06:42)
[2024-03-13] MEDS: INSULIN ASPART (NovoLOG) 100 UNIT/ML VIAL SQ SCH ×2 (06:43→16:56)
--- NOTE | 2024-03-13 07:42 | XR ---
EXAMINATION TYPE: XR chest 1V portable DATE OF EXAM: 03/13/2024 HISTORY: Shortness of breath. COMPARISON: 03/12/2024 TECHNIQUE: Single view of the chest is submitted. FINDINGS: Demonstrated are scattered senescent parenchymal change. There is evidence of cardiomegaly with pulmonary venous congestion scattered infiltrates as well as s mall effusions. Hilar and mediastinal structures are within normal limits. Degenerative changes are seen of the dorsal spine. IMPRESSION: 1. Stable features of congestive failure.
[2024-03-13] MEDS: INSULIN DETEMIR (LEVEMIR) 100 UNIT/ML SYR SQ SCH (07:58)
--- NOTE | 2024-03-13 08:26 | P.PN ---
Subjective Progress Note Date: 03/13/24 HISTORY OF PRESENT ILLNESS: 68-year-old office patient with active medical history of atherosclerotic heart disease post CABG, end-stage renal disease post renal transplant at [facility] over 10 years ago, chronic stage IIIb kidney disease, hypertension, hyperlipidemia, chronic neuropathy, obesity, obstructive sleep apnea, mild peripheral arterial disease, who was back at [facility] few months ago for worsening kidney function was hospitalized for few days. He was hospitalized on 02/15/2024 with acute respiratory failure secondary to left-sided pneumonia along with combination of heart failure left-sided pneumonia and A-fib with RVR also had acute kidney injury required dialysis for a few sessions the patient finally reversed. He has done well and is being treated for CHF, COPD, left-sided pneumonia and A-fib medication and adjustment was made patient currently be debilitated require oxygen and updraft treatment on the clock presented again to [facility] rehab for almost 10 days. He still not able to be fully independent the sister decided to bring him to our office with extra help Rosalba is regarding at this point the patient developed to have acute rectal bleeding claimed to be hemorrhoid with significant blood. Anticoagulation was held late yesterday and To be on hold. Patient become extremely confused with worsening mental status and worsening mentation ended up Bring him to the emergency department at [facility] via EMS for the above problem. Was unresponsive initially but continued to have significant dyspnea and worsening confusion Limited attempted to Cintron catheter for better watching his kidney function especially with IV diuretics patient become very combative confused delusional and having worsening mental status. Finding at this point again with EKG showing supraventricular tachycardia with pulse rate of 108 looks like A-fib or a flutter at this point. CAT scan of the brain did n ot show any acute bleed, chest x-ray showed moderate to marked of CHF significant interval worsening compared to the previous study before he left the hospital last time. Laboratory value showed hemoglobin of 8.2 which is close to his baseline blood gas showed significant hypoxia with carbon dioxide retention creatinine is up to 3.46 with bun at 75 with worsening compared to before GFR is down to 17. Metabolic symptoms patient be hospitalized will be seen neurology, nephrology, pulmonary and cardiology. 03/10/2024: The patient was admitted late last night he still in the ER hold for admission he continued to have significant altered mental status with severe encephalopathy not clear also kidney function is much worse with GFR down to 70, had anemia with hemoglobin at 7 continue to have tachycardia and patient was placed on amiodarone from his last admission along with part of the dose of metoprolol and Cardizem. Also patient had severe confusion, type 2 diabetes was better controlled and is not bleeding at this point half the dose of insulin is causing hypoglycemia which will be changed currently. The patient remained on respiratory failure due to recurrent condition we will continue aggressive management continue gentle hydration progressive kidney failure at this point awaiting for nephrology consult if further decline in kidney function patient might require to go on hemodialysis. The patient mental status being awake there is no other significant or focalized problem consistent with neurological type disease with stroke or mini stroke but this is more encephalopathy related to his metabolic problem, hypoxia, hypoglycemia and other. 03/13/2024: Through the weekend patient remain on IV drip at 10 mg an hour making enough urine also remain on oral amiodarone and oral Cardizem for A-fib with RVR, continue higher flow O2. Hemoglobin remained at 7.2 did not require any transfusion BUN is up to 80 with creatinine 2.49 blood sugar remained quite bit high remain on 5 units of NovoLog AC meals plus sliding scales still on 15 units of Levemir which simply cannot be increased at this point. Continue to be watched and managed by nephrology, pulmonary and cardiology at this point patient still in the ICU currently will be transferable hopefully within the next 24 hours. REVIEW OF SYSTEMS: CONSTITUTIONAL: Morbid obesity and mild respiratory distress. Severely confused. EYES: No icterus sclerae, no conjunctivitis. EARS, NOSE, MOUTH, THROAT, and FACE: No sore throat, lymphadenopathy, carotid bruits or deformity. RESPIRATORY: Positive shortness of breath cough or wheezes. CARDIOVASCULAR: Positive PND orthopnea palpitation. GASTROINTESTINAL: No Abd pain, Nausea or vomiting, no Diarrhea or constipation, No GI Bleed, no distention or masses. GENITOURINARY: No polyuria nocturia without any hematuria. INTEGUMENT/BREAST: Negative for any muscular injury with mild osteoarthritis.. HEMATOLOGIC/LYMPHATIC: Chronic anemia with no bleeding. MUSCULOSKELTAL: Negative for Myalgia or arthralgia. NEURLOGICAL: Severe confusion with significant lack of response at this point with worsening mental status. BEHAVIORAL/PSYCH: Negative. ENDOCRINE: Negative. PHYSICAL EXAMINATION: General Appearance: Overweight in mild respiratory distress. Neck HEENT: Supple, no lymphadenopathy, no thyroid enlargement, no carotid bruits. Lungs: Decreased breath sound bilaterally especially the left side with fine rhonchi positive crackles in the bases positive mild inspiratory expiratory wheezes. Chest Wall: Decreased expansion with deep inspiration no tenderness and no deformity was found on exam, no costochondral pain or discomfort. Heart: Irregular rate and rhythm, S1, S2 positive S3 positive PVCs. Back: Symmetric, no curvature, ROM normal, no CVA tenderness. Abdomen: Soft, non-tender, bowel sounds active all four quadrants, no masses, no organomegaly. Extremities: Extremities normal, atraumatic, no cyanosis positive edema. Pulses: 2+ and symmetric. Skin: Skin color, texture, tugor normal, no rashes or lesions. Neurologic: Alert oriented severe confusion cranial nerves II through XII intact, no motor deficit, no abnormal balance or gait. ASSESSMENT AND PLAN: _Severe altered mental status: Mostly metabolic encephalopathy, try to exclude underlying central nervous system problem, patient be seen neurology, CAT scan of the brain will be done continue to correct his metabolic problem at this point. _Acute kidney injury with worsening kidney function 1 stage II chronic kidney disease, with much worsening GFR down to 17 patient does not require dialysis yet but will consult nephrology watch symptoms carefully. Still been hydrated pulmonary might start him on dobutamine drip which might help. _Acute respiratory failure: Combination of congestive heart failure along with arrhythmia and possible bronchitis or pneumonia continue to treat underlying disease. Patient will require higher oxygen concentration might benefit from having BiPAP awaiting for pulmonary. _Congestive heart failure acute with mild exacerbation mostly resolved. Fraction congestive heart failure but still systolic dysfunction and affected by the kidney failure making it worse. _Severe arrhythmia: Mostly sinus or junctional rhythm with tachycardia and looks like a flutter in between, despite the treatment from last time still much worsening with continue smaller dose of amiodarone along with Cardizem and metoprolol and still on anticoagulation. _Coronary artery disease post bypass surgery from 2019 has not had any chest pain or angina and even if there is a complaint so far patient is not in any condition to go for an intervention. _GI bleed mostly severe hemorrhoid not significant drop in hemoglobin at this point but still at 8.2 will consult general surgery for checking his rectal area and terminal sigmoid. _Type 2 diabetes not well-controlled noncompliance to medication has been mostly on Lantus 70 units daily along with NovoLog 35 units AC meals plus sliding scales coverage. Titrate insulin as needed. _End-stage renal disease posttransplant remain on antirejection drugs will consult nephrology continue mycophenolate acid along with Prograf and still on prednisone 5 mg daily. _Hypertension: Remain on diltiazem CD2 140 mg a day, torsemide 20 mg daily, metoprolol titrate 100 mg 3 times a day continue medication. _Hyperlipidemia: Has been on Lipitor 40 mg a day currently medication. _BPH watch for any urinary retention. _Anticoagulation: Was on Eliquis 2.5 mg twice a day hold medication at this point with the GI bleed is better. _GI prophylaxis: Patient be on Pepcid 20 mg daily. CODE STATUS: Full code. Discussion: Patient be seen multi specialist today between cardiology, pulmonary, nephrology, neurology and possible psychiatry continue current m anagement keep watching patient's carefully he is not stable being down in the ER at this point over hold having to move him into either the floor of the ICU will be probably very helpful if it happened quickly. Objective - Vital Signs Vital signs: Vital Signs Temp 97.9 F 03/13/24 04:00 Pulse 120 H 03/13/24 05:00 Resp 15 03/13/24 05:00 BP 119/68 03/13/24 05:00 Pulse Ox 98 03/13/24 05:00 FiO2 40 03/13/24 04:14 Intake & Output 03/12/24 03/12/24 03/13/24 06:59 18:59 06:59 Intake Total 310 1297.667 399.333 Output Total 7929 523 3038 Balance -720 362.667 -700.667 Weight 98.1 kg 101.3 kg Intake: IV 210 220 100 0.9 110 120 100 Magnesium Sulfate-D5w Pmx 100 1 gm In Dextrose/Water 1 100ml.bag @ 100 mls/hr IVPB ONCE ONE Rx#: [id number] Magnesium Sulfate-D5w Pmx 100 1 gm In Dextrose/Water 1 100ml.bag @ 100 mls/hr IVPB ONCE ONE Rx#: [id number] Intake, IV Titration 100 77.667 99.333 Amount Furosemide 100 mg In 100 77.667 99.333 Sodium Chloride 0.9% 90 ml @ 10 MG/HR 10 mls/hr IV .Q10H [facility] Rx#: [id number] Oral 1000 200 Output: Urine 0232 099 8463 Other: Voiding Method Indwelling Catheter Indwelling Catheter Indwelling Catheter # Bowel Movements 1 1 - Labs CBC & Chem 7: 03/13/24 04:25 03/13/24 04:25 Labs: Abnormal Lab Results - Last 24 Hours (Table) 03/12/24 03/12/24 03/12/24 Range/Units 07:00 12:03 16:38 RBC (4.30-5.90) m/uL Hgb (13.0-17.5) gm/dL Hct (39.0-53.0) % RDW (11.5-15.5) % Plt Count (150-450) k/uL Lymphocytes # (1.0-4.8) k/uL Sodium (137-145) mmol/L BUN (9-20) mg/dL Creatinine (0.66-1.25) mg/dL Glucose (74-99) mg/dL POC Glucose (mg/dL) 313 H 326 H 341 H (70-110) mg/dL 03/12/24 03/13/24 03/13/24 Range/Units 20:17 04:25 04:25 RBC 2.41 L (4.30-5.90) m/uL Hgb 7.2 L (13.0-17.5) gm/dL Hct 23.0 L (39.0-53.0) % RDW 16.3 H (11.5-15.5) % Plt Count 130 L (150-450) k/uL Lymphocytes # 0.8 L (1.0-4.8) k/uL Sodium 129 L (137-145) mmol/L BUN 78 H (9-20) mg/dL Creatinine 3.05 H (0.66-1.25) mg/dL Glucose 234 H (74-99) mg/dL POC Glucose (mg/dL) 304 H (70-110) mg/dL Microbiology - Last 24 Hours (Table) 03/10/24 12:54 Blood Culture - Preliminary Blood Assessment and Plan Plan: Acute hypoxemic respiratory failure, secondary to CHF, in a patient with heart failure, and a preserved ejection fraction (HFPEF). Recent admission to this hospital, with an episode of respiratory failure secondary to CHF, pneumonia, and atrial fibrillation/RVR, requiring cardioversion. History of renal transplantation, [facility], 2013. History of previous bypass grafting/AVR, [facility], 2019. Chronic kidney disease. History of hypertension. Possible underlying COPD, from previous tobacco use. History of dyslipidemia. History of diabetes mellitus. History of gout. Obesity. History of CVA, age 42. Plan:
[2024-03-13 11:47] LABS: Glucose,Whole Blood 337 mg/dL (70-110)
--- NOTE | 2024-03-13 13:44 | P.PN ---
Subjective patient is seen for follow-up for acute kidney injury and chronic kidney disease. Currently maintained on Lasix drip for volume overload. Urine output remains at 50- 100 mL an hour. Lower extremity swelling has improved. Respiratory status has improved as well. serum creatinine decreased to 3.0 from 3.49 Objective - Vital Signs Vital signs: Vital Signs Temp 98.6 F 03/13/24 12:00 Pulse 123 H 03/13/24 12:00 Resp 23 03/13/24 12:00 BP 111/62 03/13/24 12:00 Pulse Ox 96 03/13/24 12:00 FiO2 40 03/13/24 04:14 Intake & Output 03/12/24 03/13/24 03/13/24 18:59 06:59 18:59 Intake Total 1297.667 419.333 660 Output Total 935 1375 475 Balance 362.667 -955.667 185 Weight 101.3 kg Intake: IV 220 120 60 0.9 120 120 60 Magnesium Sulfate-D5w Pmx 100 1 gm In Dextrose/Water 1 100ml.bag @ 100 mls/hr IVPB ONCE ONE Rx#: [id number] Intake, IV Titration 77.667 99.333 100 Amount Furosemide 100 mg In 77.667 99.333 100 Sodium Chloride 0.9% 90 ml @ 10 MG/HR 10 mls/hr IV .Q10H [facility] Rx#: [id number] Oral 1000 200 Tube Feeding 500 Output: Urine 935 1375 475 Other: Voiding Method Indwelling Catheter Indwelling Catheter Indwelling Catheter # Bowel Movements 1 - Exam patient is awake, comfortable, alert oriented 3. Examination of the heart S1 and S2 Examination of the lungs bilateral breath sounds are heard Abdomen is soft obese Examination lower extremity shows edema 3+ bilaterally [employer] exam grossly intact - Labs CBC & Chem 7: 03/13/24 04:25 03/13/24 04:25 Labs: Abnormal Lab Results - Last 24 Hours (Table) 03/12/24 03/12/24 03/13/24 Range/Units 16:38 20:17 04:25 RBC (4.30-5.90) m/uL Hgb (13.0-17.5) gm/dL Hct (39.0-53.0) % RDW (11.5-15.5) % Plt Count (150-450) k/uL Lymphocytes # (1.0-4.8) k/uL Sodium (137-145) mmol/L BUN (9-20) mg/dL Creatinine (0.66-1.25) mg/dL Glucose (74-99) mg/dL POC Glucose (mg/dL) 341 H 304 H (70-110) mg/dL Hemoglobin A1c 7.2 H (<=6.0) % 03/13/24 03/13/24 03/13/24 Range/Units 04:25 04:25 06:24 RBC 2.41 L (4.30-5.90) m/uL Hgb 7.2 L (13.0-17.5) gm/dL Hct 23.0 L (39.0-53.0) % RDW 16.3 H (11.5-15.5) % Plt Count 130 L (150-450) k/uL Lymphocytes # 0.8 L (1.0-4.8) k/uL Sodium 129 L (137-145) mmol/L BUN 78 H (9-20) mg/dL Creatinine 3.05 H (0.66-1.25) mg/dL Glucose 234 H (74-99) mg/dL POC Glucose (mg/dL) 267 H (70-110) mg/dL Hemoglobin A1c (<=6.0) % 03/13/24 Range/Units 11:45 RBC (4.30-5.90) m/uL Hgb (13.0-17.5) gm/dL Hct (39.0-53.0) % RDW (11.5-15.5) % Plt Count (150-450) k/uL Lymphocytes # (1.0-4.8) k/uL Sodium (137-145) mmol/L BUN (9-20) mg/dL Creatinine (0.66-1.25) mg/dL Glucose (74-99) mg/dL POC Glucose (mg/dL) 337 H (70-110) mg/dL Hemoglobin A1c (<=6.0) % Microbiology - Last 24 Hours (Table) 03/10/24 12:54 Blood Culture - Preliminary Blood Assessment and Plan Assessment: 1. Acute kidney injury secondary to cardiorenal syndrome. Currently maintained on Lasix drip. Renal function is improving. No evidence of obstruction on ultrasound. 2. CK D stage III B with baseline creatinine 1.8 to 2.0 mg/dL secondary to chronic allograft nephropathy and cardiorenal syndrome. 3. acute hypoxic respiratory failure secondary to CHF and fluid overload 4. Volume overload 5. Acute on chronic diastolic CHF with moderate mitral regurgitation 6. status post donor renal transplant in 2012 at [facility] maintained on tacrolimus, prednisone and Myfortic. tacrolimus level 9.8 on 03/11/2024. this is a high level. 7. Hypertension with CK D stage III 8. Hypervolemic hyponatremia. Plan: repeat tacrolimus level decrease tacrolimus to 1 mg daily in the meantime. Continue with Lasix drip Add Zaroxolyn 5 mg daily. Repeat labs in a.m.
--- NOTE | 2024-03-13 13:44 | P.PN ---
Subjective Progress Note Date: 03/13/24 SOB The patient is a 68-year-old gentleman with a past medical history significant for CAD status post CABG as well as history of heart failure with a preserved ejection fraction and also atrial fibrillation and valvular heart disease status post aortic valve replacement and hypertension and dyslipidemia and renal transplant as well as multiple comorbid conditions who was admitted to the hospital with acute hypoxic respiratory failure associated with change in mental status. March 11, 2024 The patient was seen and evaluated this morning. He is lethargic. He continues to be on BiPAP. The echo showed normal LV systolic function with bioprosthetic aortic valve and a peak gradient of about 20 mmHg across the valve. Currently he is on dobutamine. I am going to stop the dobutamine in the light of the patient having normal LV systolic function and beside that he is hemodynamically stable as [id number] currently he is somewhat tachycardic. He continues to be on IV diuretics. Creatinine remains elevated. the examination is remarkable for change in mental status with a stable vital signs besides tachycardia and regular rate and rhythm and systolic murmur and diminished breathing sounds bilaterally and no edema was noted in the lower extremities March 12, 2024 The patient was seen and evaluated this morning. He is mentation has improved somewhat. He remains hemodynamically stable beside being slightly tachycardic. He is on amiodarone and he is on Cardizem and beside that I am going to start the patient on small dose of beta-amy with metoprolol and uptitrate the dose if the pressure permits. He still in overt heart failure with bilateral lower extremities edema and he is still hypoxic requiring BiPAP. No symptoms of chest pain or chest discomfort. He is on oral anticoagulation. He was started on Lasix drip by the nephrology service. The examination is remarkable for regular rhythm with sinus tachycardia and diminished breathing sounds bilaterally and moderate bilateral lower extremities edema 07/23/2024 Patient is seen and examined at bedside this a.m. On telemetry patient is in atrial fibrillation heart rate 120 bpm. Normotensive. On exam Patient still appears volume overloaded with 3+ pitting edema in bilateral lower extremity. He has elevated JVD, crackles in bilateral lung gage with poor inspiratory effort. Abdomen is nondistended. S1-S2 audible, no murmurs appreciated. Assessment Acute hypoxic respiratory failure Heart failure with a preserved ejection fraction Atrial fibrillation with RVR Acute on chronic anemia Change in mental status Renal failure and history of renal transplant Valvular heart disease as described above Multiple comorbid conditions Plan Agree with IV Lasix drip Agree with addition of metolazone. Patient's hemoglobin is 7.2. No signs of active bleeding. Patient had hemorrhoidal bleeding at home prior to coming to the hospital. Currently on Eliquis 2.5. Will continue Eliquis and monitor hemoglobin. If hemoglobin drops below 7, transfuse. His last iron study shows that his ferritin is high with low iron binding capacity suggestive of anemia of chronic disease and CKD Metoprolol 25 mg 3 times daily, amiodarone 200 mg daily, Eliquis 2.5 mg, aspirin 81 mg, atorvastatin 40 mg Objective - Vital Signs Vital signs: Vital Signs Temp 98.6 F 03/13/24 12:00 Pulse 123 H 03/13/24 12:00 Resp 23 03/13/24 12:00 BP 111/62 03/13/24 12:00 Pulse Ox 96 03/13/24 12:00 FiO2 40 03/13/24 04:14 Intake & Output 03/12/24 03/13/24 03/13/24 18:59 06:59 18:59 Intake Total 1297.667 419.333 660 Output Total 935 1375 475 Balance 362.667 -955.667 185 Weight 101.3 kg Intake: IV 220 120 60 0.9 120 120 60 Magnesium Sulfate-D5w Pmx 100 1 gm In Dextrose/Water 1 100ml.bag @ 100 mls/hr IVPB ONCE ONE Rx#: [id number] Intake, IV Titration 77.667 99.333 100 Amount Furosemide 100 mg In 77.667 99.333 100 Sodium Chloride 0.9% 90 ml @ 10 MG/HR 10 mls/hr IV .Q10H [facility] Rx#: [id number] Oral 1000 200 Tube Feeding 500 Output: Urine 935 1375 475 Other: Voiding Method Indwelling Catheter Indwelling Catheter Indwelling Catheter # Bowel Movements 1 - Labs CBC & Chem 7: 03/13/24 04:25 03/13/24 04:25 Labs: Abnormal Lab Results - Last 24 Hours (Table) 03/12/24 03/12/24 03/13/24 Range/Units 16:38 20:17 04:25 RBC (4.30-5.90) m/uL Hgb (13.0-17.5) gm/dL Hct (39.0-53.0) % RDW (11.5-15.5) % Plt Count (150-450) k/uL Lymphocytes # (1.0-4.8) k/uL Sodium (137-145) mmol/L BUN (9-20) mg/dL Creatinine (0.66-1.25) mg/dL Glucose (74-99) mg/dL POC Glucose (mg/dL) 341 H 304 H (70-110) mg/dL Hemoglobin A1c 7.2 H (<=6.0) % 03/13/24 03/13/24 03/13/24 Range/Units 04:25 04:25 06:24 RBC 2.41 L (4.30-5.90) m/uL Hgb 7.2 L (13.0-17.5) gm/dL Hct 23.0 L (39.0-53.0) % RDW 16.3 H (11.5-15.5) % Plt Count 130 L (150-450) k/uL Lymphocytes # 0.8 L (1.0-4.8) k/uL Sodium 129 L (137-145) mmol/L BUN 78 H (9-20) mg/dL Creatinine 3.05 H (0.66-1.25) mg/dL Glucose 234 H (74-99) mg/dL POC Glucose (mg/dL) 267 H (70-110) mg/dL Hemoglobin A1c (<=6.0) % 03/13/24 Range/Units 11:45 RBC (4.30-5.90) m/uL Hgb (13.0-17.5) gm/dL Hct (39.0-53.0) % RDW (11.5-15.5) % Plt Count (150-450) k/uL Lymphocytes # (1.0-4.8) k/uL Sodium (137-145) mmol/L BUN (9-20) mg/dL Creatinine (0.66-1.25) mg/dL Glucose (74-99) mg/dL POC Glucose (mg/dL) 337 H (70-110) mg/dL Hemoglobin A1c (<=6.0) % Microbiology - Last 24 Hours (Table) 03/10/24 12:54 Blood Culture - Preliminary Blood
[2024-03-13] MEDS: metOLazone 5 MG TAB PO SCH (14:36)
--- NOTE | 2024-03-13 15:00 | P.PN ---
Subjective Progress Note Date: 03/13/24 68-year-old male who was recently inpatient here, for an episode of CHF, pn eumonia, and atrial fibrillation with RVR. The patient was discharged from this hospital, and went to [facility]. He was discharged from [facility] on March 07. He was brought back to the hospital, by EMS, yesterday, March 09. He apparently was confused and very lethargic. He had lower extremity edema. He apparently was having difficulty breathing, and he could not be managed at home by his family, so EMS was called. The patient is seen today in the emergency department, room 5. He is currently on 3 L. He is very lethargic and somnolent. He had a blood gas showing a pO2 of 75, pCO2 of 55, pH is 7.31. His N-terminal proBNP was 7190. The patient's chest x-ray was consistent with CHF. My plan is to move the patient to the intensive care unit, start him on dobutamine, and BiPAP. He has been seen by cardiology already. On his last visit here, the patient did require a cardioversion for his atrial fibrillation, and, he received diuretics, and antibiotics. Current laboratory data includes a white count 6.62, hemoglobin 7.7, hematocrit 26.1, and a platelet count of 136,000. Sodium 139, potassium 5.2, chlorides 103, CO2 24, BUN 76, and creatinine 4.1. Glucose is 100. Calcium 9.3. Albumin is 3.3. Troponins were negative x 2. Chest x-ray is consistent with cardiomegaly, and CHF. Brain CT shows a 3.4 x 1.5 cm area in the lateral right middle cranial fossa, which is unchanged, and consistent with a previous infarct/encephalomalacia. 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 In addition, the patient has chronic vessel ischemic disease. Progress note dated March 11, 2024. 68-year-old male with a history of multiple medical problems, was seen yesterday in the emergency department. We moved him to the ICU and placed him on BiPAP, with settings of 12/5, and 40%. I also initially placed him on dobutamine at 5 mcg/kg/min. The patient is getting saline at 10 cc an hour. Off of BiPAP, he is on 4 L nasal cannula. Cardiology turned to dobutamine off given his normal ejection fraction. The patient be started on a Lasix drip at 10 mg an hour. Clinically, the patient looks better today than he did yesterday. He is much more awake and alert although his speech is a bit garbled. Current labs are good white count 6.3, hemoglobin 7.2, hematocrit 24.2, and a platelet count of 113,000. Sodium 132, potassium 4.9, chlorides 103, CO2 25, BUN 83, creatinine 3.76. Glucose is 236. Chest x-ray is improved. The patient's procalcitonin level was 0.15. The most recent N-terminal proBNP was 7190. Progress note dated March 12, 2024. 68-year-old male with a history of multiple medical problems including kidney transplantation, CABG/aortic valve replacement, pneumonia, CHF, atrial fibrillation, etc. The patient was recently inpatient here, and was discharged to a local residential. After short period of time there, he was discharged home, but did poorly at home, and was brought back to the emergency room. Currently, he is on BiPAP, with settings of 12/5, 40%. He wore it all night. If he is not wearing BiPAP, he is on nasal O2 at between 3 to 4 L/min. The patient is getting saline at 10 cc an hour, and a Lasix drip at 10 mg an hour. White count is 5.5, hemoglobin 7.2, hematocrit 23.8, platelet count 134,000. Sodium 130, potassium 4.3, chlorides 102, CO2 25, BUN 80, creatinine 3.49. The patient's glucose is 313. Blood cultures are negative. Chest x-ray shows right lower lobe airspace opacities. There is cardiomegaly, and pulmonary vascular congestion. On 03/13/2024, the patient is being seen for a follow-up. The patient is cur rently in the intensive care unit for decompensated CHF and fluid overload. The patient is currently on 3 L of oxygen by nasal cannula. His chest x-ray still showing cardiomegaly and bilateral pleural effusion and pulmonary vessel congestion/edema. Most recent chest x-ray from this morning on 03/13/2024 and is consistent with pulmonary edema. The patient is currently off dobutamine and he is also off dopamine and the patient is currently on Lasix drip at 10 mg an hour. Urine output is adequate and the patient is in a negative fluid balance of 593 cc over the past 12 hours. His sodium is at 129, potassium is at 4.3, BUN is 78 with a creatinine of 3.05 and the patient's white cell count is 5.1 with a hemoglobin 7.2 and a platelet count of 130. He remains in atrial fibrillation. He is currently on amiodarone 200 mg p.o. daily and is also on metoprolol 25 mg p.o. 3 times daily. He remains on anticoagulation with Eliquis 2.5 mg p.o. twice a day and Cardizem CD2 40 mg p.o. daily. He remains on immunosuppression regarding his renal transplantation the patient remains on Prograf 4 mg daily and low-dose prednisone 5 mg p.o. daily. Awake and alert and communicating. No encephalopathy. Objective - Vital Signs Vital signs: Vital Signs Temp 98.2 F 03/13/24 08:00 Pulse 124 H 03/13/24 10:00 Resp 17 03/13/24 10:00 BP 115/57 03/13/24 10:00 Pulse Ox 96 03/13/24 10:00 FiO2 40 03/13/24 04:14 Intake & Output 03/12/24 03/13/24 03/13/24 18:59 06:59 18:59 Intake Total 1297.667 419.333 140 Output Total 935 1375 375 Balance 362.667 -955.667 -235 Weight 101.3 kg Intake: IV 220 120 40 0.9 120 120 40 Magnesium Sulfate-D5w Pmx 100 1 gm In Dextrose/Water 1 100ml.bag @ 100 mls/hr IVPB ONCE ONE Rx#: [id number] Intake, IV Titration 77.667 99.333 100 Amount Furosemide 100 mg In 77.667 99.333 100 Sodium Chloride 0.9% 90 ml @ 10 MG/HR 10 mls/hr IV .Q10H [facility] Rx#: [id number] Oral 1000 200 Output: Urine 935 1375 375 Other: Voiding Method Indwelling Catheter Indwelling Catheter Indwelling Catheter # Bowel Movements 1 - Exam No acute distress, much improved, currently on nasal O2, at 3 L of oxygen by nasal cannula Head exam was generally normal. There was no scleral icterus or corneal arcus. Mucous membranes were moist. HEENT examination is grossly unremarkable. Mucous membranes are moist. No oral lesions. Neck supple. Full range of motion. No adenopathy thyromegaly or neck vein distention. Cardiovascular examination reveals an regular rhythm and rate. S1-S2 normal. No S3 or S4. Systolic ejection murmur grade 3/6 heard throughout the precordium including left lateral sternal border and apex. Lungs reveal bilateral coarse rhonchi. Basilar crackles are noted. No wheezes. Breath sounds are equal bilaterally. Abdomen obese, but without tenderness. Extremities are intact. No signs or clubbing. There is 2-3+ edema. Skin is without rash or lesion. Neurologic examination is brief but nonfocal. - Labs CBC & Chem 7: 03/13/24 04:25 03/13/24 04:25 Labs: Abnormal Lab Results - Last 24 Hours (Table) 03/12/24 03/12/24 03/12/24 Range/Units 12:03 16:38 20:17 RBC (4.30-5.90) m/uL Hgb (13.0-17.5) gm/dL Hct (39.0-53.0) % RDW (11.5-15.5) % Plt Count (150-450) k/uL Lymphocytes # (1.0-4.8) k/uL Sodium (137-145) mmol/L BUN (9-20) mg/dL Creatinine (0.66-1.25) mg/dL Glucose (74-99) mg/dL POC Glucose (mg/dL) 326 H 341 H 304 H (70-110) mg/dL Hemoglobin A1c (<=6.0) % 03/13/24 03/13/24 03/13/24 Range/Units 04:25 04:25 04:25 RBC 2.41 L (4.30-5.90) m/uL Hgb 7.2 L (13.0-17.5) gm/dL Hct 23.0 L (39.0-53.0) % RDW 16.3 H (11.5-15.5) % Plt Count 130 L (150-450) k/uL Lymphocytes # 0.8 L (1.0-4.8) k/uL Sodium 129 L (137-145) mmol/L BUN 78 H (9-20) mg/dL Creatinine 3.05 H (0.66-1.25) mg/dL Glucose 234 H (74-99) mg/dL POC Glucose (mg/dL) (70-110) mg/dL Hemoglobin A1c 7.2 H (<=6.0) % 03/13/24 Range/Units 06:24 RBC (4.30-5.90) m/uL Hgb (13.0-17.5) gm/dL Hct (39.0-53.0) % RDW (11.5-15.5) % Plt Count (150-450) k/uL Lymphocytes # (1.0-4.8) k/uL Sodium (137-145) mmol/L BUN (9-20) mg/dL Creatinine (0.66-1.25) mg/dL Glucose (74-99) mg/dL POC Glucose (mg/dL) 267 H (70-110) mg/dL Hemoglobin A1c (<=6.0) % Microbiology - Last 24 Hours (Table) 03/10/24 12:54 Blood Culture - Preliminary Blood Assessment and Plan Plan: Acute hypoxemic respiratory failure, secondary to CHF, in a patient with heart failure, and a preserved ejection fraction (HFPEF). The patient is currently on 3 L of oxygen by nasal cannula, no signs of any respiratory distress at rest. The patient had a recent admission to this hospital, with an episode of respiratory failure secondary to CHF, pneumonia, and atrial fibrillation/RVR, requiring cardioversion. Current rhythm is atrial fibrillation, slightly cardiac Acute pulmonary edema, preserved LV function and echocardiogram that was done on 03/10/2023 showed LV function, bioprosthetic aortic valve with a peak gradient of 37 mm with trace regurgitation and the patient also had a moderate degree of mitral regurgitation Acute on chronic kidney injury. Creatinine is improving and the creatinine is currently down to 3.05 and the patient remains on Lasix drip at the rate of 10 mg an hour Mental status change, improved and the patient is awake and alert x 3 coronary artery disease, with previous bypass surgery in 2019 along with aortic valve replacement History of renal transplantation, [facility] [place], 2013. Maintained on Prograft 1 mg BID and prednisone 5 mg daily History of previous bypass grafting/AVR, [facility], 2019. Chronic atrial fibrillation/ A flutter with rapid ventricular response at time of admission the patient is S/P transesophageal echocardiogram, and cardioversion, February 17, 2024. Rate is controlled for now and the patient remains on amiodarone and metoprolol and the patient is also on anticoagulation with Eliquis. The patient is on amiodarone 200 mg p.o. daily, Cardizem 240 mg p.o. daily and metoprolol 25 mg p.o. 3 times daily. Chronic kidney disease. History of hypertension. COPD, from previous tobacco use. History of dyslipidemia. History of diabetes mellitus type II, Levemir 22 units BId and SS History of gout. Obesity. History of CVA, age 42. Hyponatremia secondary to above and the patient is currently sodium levels at 129 Plan: Titrate oxygen to maintain saturation above 90%, currently on 3 L Keep legs elevated on milligrams an hour Monitor electrolytes and renal function the creatinine is improving Nephrology on the case and the patient is currently on a combination of Prograf and prednisone Continue amiodarone, Cardizem and metoprolol for rate control and the patient is anticoagulated with Eliquis Rest of the medication will be kept unchanged. Will continue to follow this patient's case along with the rest of the consultan ts. Hemodynamically stable at this point in time. Monitor electrolytes. Monitor sodium level.
[2024-03-13 16:28] LABS: Glucose,Whole Blood 416 mg/dL (70-110)
[2024-03-13 20:50] LABS: Glucose,Whole Blood 411 mg/dL (70-110)
[2024-03-14 05:54] LABS: Glucose,Whole Blood 248 mg/dL (70-110)
[2024-03-14 06:25] LABS: Anisocytosis Slight; HCT 23.9 % (39.0-53.0); HGB 7.2 gm/dL (13.0-17.5); Hypochromasia Moderate; MCHC 30.3 g/dL (31.0-37.0); Mean Platelet Volume 8.3; Platelet Count 152 k/uL (150-450); RBC 2.49 m/uL (4.30-5.90); RDW 16.4 % (11.5-15.5); WBC 4.8 k/uL (3.8-10.6)
[2024-03-14 06:34] LABS: African American GFR (CKD) 26 (>60 ml/min/1.73 sqM); Anion Gap 3 mmol/L; Blood Urea Nitrogen 73 mg/dL (9-20); Calcium 8.9 mg/dL (8.4-10.2); Carbon Dioxide 30 mmol/L (22-30); Chloride 101 mmol/L (98-107); Glucose 216 mg/dL (74-99); Magnesium 1.9 mg/dL (1.6-2.3); Non-African American GFR(CKD) 22 (>60 ml/min/1.73 sqM); Potassium 4.1 mmol/L (3.5-5.1); Sodium 134 mmol/L (137-145)
[2024-03-14] MEDS: INSULIN DETEMIR (LEVEMIR) 100 UNIT/ML SYR SQ SCH (06:59)
[2024-03-14] MEDS: INSULIN ASPART (NovoLOG) 100 UNIT/ML VIAL SQ SCH (06:59)
[2024-03-14] MEDS: TACROLIMUS 1 MG CAP PO SCH (08:30)
--- NOTE | 2024-03-14 09:45 | P.PN ---
Subjective Progress Note Date: 03/13/24 03/13/2024: Patient was seen for a follow-up. Patient is sitting comfortably in the recliner. Patient's multiple family members were present. They believe the patient is back to baseline. He is not confused, awake. He is complaining of some soreness of the joints. Patient's niece who was present, mentions that he was trying to get out of the side rails very confused extremely agitated while he was in the ER. He also fell 2 times in the last 2 weeks. He has some couple bruises but did not break any bones. At present he complains of some soreness, and difficulty with walking because of the soreness. No focal symptoms. He is fully oriented. He had history of a CVA at age 42. 03/11/2024: Patient was initially seen by Dr. Lew Ly. Please refer to his note for details. Patient is a 68-year-old male presented with altered mental status, likely due to toxic metabolic encephalopathy. Patient had low blood sugar of 49. He was short of breath. Routine EEG showed mild encephalopathy. Patient denies headache. He states he is feeling "all right". Some of the work-up during this hospital visit consisted of: During this admission the patient has oxygen level of 93 on 3 L nasal cannula. Creatinine is 3.46 and BUN is 75. Phosphorus 4.9 Sodium is 135. Initial serum glucose is 95 and had POC glucose of 56. CT of the head is reported as focal 3.4 x 1.5 cm area of CSF density lateral right middle cranial fossa is unchanged. Correlate for area of previous infarct/encephalomalacia versus underlying arachnoid cyst. 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 2D echo is reported as normal left ventricle systolic function. By prosthetic valve in the aortic position with peak gradient 37 mm and mean gradient 19 across the valve with trace regurgitation. Moderate mitral regurgitation. Objective - Vital Signs Vital signs: Vital Signs Temp 98.6 F 03/13/24 12:00 Pulse 123 H 03/13/24 12:00 Resp 23 03/13/24 12:00 BP 111/62 03/13/24 12:00 Pulse Ox 96 03/13/24 12:00 FiO2 40 03/13/24 04:14 Intake & Output 03/12/24 03/13/24 03/13/24 18:59 06:59 18:59 Intake Total 1297.667 419.333 660 Output Total 935 1375 475 Balance 362.667 -955.667 185 Weight 101.3 kg Intake: IV 220 120 60 0.9 120 120 60 Magnesium Sulfate-D5w Pmx 100 1 gm In Dextrose/Water 1 100ml.bag @ 100 mls/hr IVPB ONCE ONE Rx#: [id number] Intake, IV Titration 77.667 99.333 100 Amount Furosemide 100 mg In 77.667 99.333 100 Sodium Chloride 0.9% 90 ml @ 10 MG/HR 10 mls/hr IV .Q10H [facility] Rx#: [id number] Oral 1000 200 Tube Feeding 500 Output: Urine 935 1375 475 Other: Voiding Method Indwelling Catheter Indwelling Catheter Indwelling Catheter # Bowel Movements 1 - Exam Patient is alert and awake. His speech and language functions are normal. Patient is fully oriented. He knows it is March 2024 and that he is in [facility] in [place] and name of the current president Mr. Arango. He can name and repeat very well. Pupils are equal, round and reacting, visual gage are full, face is symmetric and tongue protrudes midline. On muscle strength testing, there is no pronator drift and the strength is normal in arms and legs, except right hand which is weak mainly involving the finger extension particularly involving the ring and middle finger which is about 1-2. His compensation consultant, biceps triceps and deltoids are normal bilaterally. Sensory to touch is equal with no neglect. No ataxia for [id number] testing. - Labs CBC & Chem 7: 03/14/24 05:42 03/14/24 05:42 Labs: Abnormal Lab Results - Last 24 Hours (Table) 03/12/24 03/12/24 03/13/24 Range/Units 16:38 20:17 04:25 RBC (4.30-5.90) m/uL Hgb (13.0-17.5) gm/dL Hct (39.0-53.0) % RDW (11.5-15.5) % Plt Count (150-450) k/uL Lymphocytes # (1.0-4.8) k/uL Sodium (137-145) mmol/L BUN (9-20) mg/dL Creatinine (0.66-1.25) mg/dL Glucose (74-99) mg/dL POC Glucose (mg/dL) 341 H 304 H (70-110) mg/dL Hemoglobin A1c 7.2 H (<=6.0) % 03/13/24 03/13/24 03/13/24 Range/Units 04:25 04:25 06:24 RBC 2.41 L (4.30-5.90) m/uL Hgb 7.2 L (13.0-17.5) gm/dL Hct 23.0 L (39.0-53.0) % RDW 16.3 H (11.5-15.5) % Plt Count 130 L (150-450) k/uL Lymphocytes # 0.8 L (1.0-4.8) k/uL Sodium 129 L (137-145) mmol/L BUN 78 H (9-20) mg/dL Creatinine 3.05 H (0.66-1.25) mg/dL Glucose 234 H (74-99) mg/dL POC Glucose (mg/dL) 267 H (70-110) mg/dL Hemoglobin A1c (<=6.0) % 03/13/24 Range/Units 11:45 RBC (4.30-5.90) m/uL Hgb (13.0-17.5) gm/dL Hct (39.0-53.0) % RDW (11.5-15.5) % Plt Count (150-450) k/uL Lymphocytes # (1.0-4.8) k/uL Sodium (137-145) mmol/L BUN (9-20) mg/dL Creatinine (0.66-1.25) mg/dL Glucose (74-99) mg/dL POC Glucose (mg/dL) 337 H (70-110) mg/dL Hemoglobin A1c (<=6.0) % Microbiology - Last 24 Hours (Table) 03/10/24 12:54 Blood Culture - Preliminary Blood Assessment and Plan Assessment: This is a 68-year-old gentleman who presents because shortness of breath, blood in the stool and arrhythmia. Neurology is consulted for altered mental status. Altered Mental status seems due to Metabolic encephalopathy. Has a glucose today as low as 49. As well as mild hypoxic encephalopathy Hypoglycemia as low as 49 Acute on chronic kidney insufficiency Short of breath Hypoxia History of previous stroke over the right temporal cerebellar. Diabetes mellitus History of CABG Congestive heart failure History of aortic valve replacement History of paroxysmal atrial fibrillation on Eliquis History of end-stage renal disease status post renal transplant about 10 years ago Hypertension Hyperlipidemia History of peripheral arterial disease History of chronic neck issues, with right hand weakness, going on for year (not new finding). Patient follows up with Dr. Guerra Plan: Patient's mentation appears to be normal at this time. He is fully oriented. Offers no complaints. EEG was abnormal due to background slowing, suggestive of mild encephalopathy. Otherwise no focal slowing, epileptiform discharges were seen. Ammonia <9, vitamin B12 829, folate 7.90 Patient had a recent TSH about a month ago which was normal therefore no need for repeat. Patient is on Eliquis 2.5 mg twice daily, aspirin 81, Lipitor 40 mg. Nephrology, cardiology and pulmonary team are consulted. Will defer the rest of the medical management to primary and other specialties on board. Neurologically, no other workup needed.
[2024-03-14 11:15] VITALS: BMI 31.8
[2024-03-14 11:56] LABS: Glucose,Whole Blood 267 mg/dL (70-110)
--- NOTE | 2024-03-14 12:17 | P.PN ---
Subjective patient is seen for follow-up for acute kidney injury and chronic kidney disease. Currently maintained on Lasix drip for volume overload. Urine output slightly improved to 2.9 L for 24 hours. Lower extremity swelling has improved. Respiratory status has improved as well. serum creatinine decreased to 2.8 Objective - Vital Signs Vital signs: Vital Signs Temp 98.2 F 03/14/24 08:00 Pulse 124 H 03/14/24 11:00 Resp 12 03/14/24 11:00 BP 118/56 03/14/24 11:00 Pulse Ox 91 L 03/14/24 11:00 FiO2 40 03/14/24 05:00 Intake & Output 03/13/24 03/14/24 03/14/24 18:59 06:59 18:59 Intake Total 1300.167 240 340 Output Total 1450 1450 600 Balance -149.833 -1210 -260 Weight 97.8 kg 97.8 kg Intake: IV 120 20 20 0.9 120 20 20 Intake, IV Titration 180.167 100 100 Amount Furosemide 100 mg In 180.167 100 100 Sodium Chloride 0.9% 90 ml @ 10 MG/HR 10 mls/hr IV .Q10H [facility] Rx#: [id number] Oral 500 120 220 Tube Feeding 500 Output: Urine 1450 1450 600 Other: Voiding Method Indwelling Catheter Indwelling Catheter Indwelling Catheter # Bowel Movements 1 0 - Exam patient is awake, comfortable, alert oriented 3. Examination of the heart S1 and S2 Examination of the lungs bilateral breath sounds are heard Abdomen is soft obese Examination lower extremity shows edema 2+ bilaterally [employer] exam grossly intact - Labs CBC & Chem 7: 03/14/24 05:42 03/14/24 05:42 Labs: Abnormal Lab Results - Last 24 Hours (Table) 03/13/24 03/13/24 03/14/24 Range/Units 16:26 20:49 05:42 RBC 2.49 L (4.30-5.90) m/uL Hgb 7.2 L (13.0-17.5) gm/dL Hct 23.9 L (39.0-53.0) % MCHC 30.3 L (31.0-37.0) g/dL RDW 16.4 H (11.5-15.5) % Sodium (137-145) mmol/L BUN (9-20) mg/dL Creatinine (0.66-1.25) mg/dL Glucose (74-99) mg/dL POC Glucose (mg/dL) 416 H 411 H (70-110) mg/dL 03/14/24 03/14/24 03/14/24 Range/Units 05:42 05:45 11:54 RBC (4.30-5.90) m/uL Hgb (13.0-17.5) gm/dL Hct (39.0-53.0) % MCHC (31.0-37.0) g/dL RDW (11.5-15.5) % Sodium 134 L (137-145) mmol/L BUN 73 H (9-20) mg/dL Creatinine 2.80 H (0.66-1.25) mg/dL Glucose 216 H (74-99) mg/dL POC Glucose (mg/dL) 248 H 267 H (70-110) mg/dL Microbiology - Last 24 Hours (Table) 03/10/24 12:54 Blood Culture - Preliminary Blood Assessment and Plan Assessment: 1. Acute kidney injury secondary to cardiorenal syndrome. Currently maintained on Lasix drip. Renal function is improving. No evidence of obstruction on ultrasound. 2. CK D stage III B with baseline creatinine 1.8 to 2.0 mg/dL secondary to chronic allograft nephropathy and cardiorenal syndrome. 3. acute hypoxic respiratory failure secondary to CHF and fluid overload 4. Volume overload 5. Acute on chronic diastolic CHF with moderate mitral regurgitation 6. status post donor renal transplant in [address] [facility] maintained on tacrolimus, prednisone and Myfortic. tacrolimus level 9.8 on 03/11/2024. this is a high level. dose has been decreased and repeat level ordered this morning. 7. Hypertension with CK D stage III 8. Hypervolemic hyponatremia. Plan: continue decrease dose of Prograf. Follow-up on level from today. Continue with Lasix drip continue Zaroxolyn 5 mg daily. Repeat labs in a.m.
--- NOTE | 2024-03-14 12:19 | P.PN ---
Subjective Progress Note Date: 03/14/24 68-year-old male who was recently inpatient here, for an episode of CHF, pn eumonia, and atrial fibrillation with RVR. The patient was discharged from this hospital, and went to [facility]. He was discharged from [facility] on March 07. He was brought back to the hospital, by EMS, yesterday, March 09. He apparently was confused and very lethargic. He had lower extremity edema. He apparently was having difficulty breathing, and he could not be managed at home by his family, so EMS was called. The patient is seen today in the emergency department, room 5. He is currently on 3 L. He is very lethargic and somnolent. He had a blood gas showing a pO2 of 75, pCO2 of 55, pH is 7.31. His N-terminal proBNP was 7190. The patient's chest x-ray was consistent with CHF. My plan is to move the patient to the intensive care unit, start him on dobutamine, and BiPAP. He has been seen by cardiology already. On his last visit here, the patient did require a cardioversion for his atrial fibrillation, and, he received diuretics, and antibiotics. Current laboratory data includes a white count 6.62, hemoglobin 7.7, hematocrit 26.1, and a platelet count of 136,000. Sodium 139, potassium 5.2, chlorides 103, CO2 24, BUN 76, and creatinine 4.1. Glucose is 100. Calcium 9.3. Albumin is 3.3. Troponins were negative x 2. Chest x-ray is consistent with cardiomegaly, and CHF. Brain CT shows a 3.4 x 1.5 cm area in the lateral right middle cranial fossa, which is unchanged, and consistent with a previous infarct/encephalomalacia. 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 In addition, the patient has chronic vessel ischemic disease. Progress note dated March 11, 2024. 68-year-old male with a history of multiple medical problems, was seen yesterday in the emergency department. We moved him to the ICU and placed him on BiPAP, with settings of 12/5, and 40%. I also initially placed him on dobutamine at 5 mcg/kg/min. The patient is getting saline at 10 cc an hour. Off of BiPAP, he is on 4 L nasal cannula. Cardiology turned to dobutamine off given his normal ejection fraction. The patient be started on a Lasix drip at 10 mg an hour. Clinically, the patient looks better today than he did yesterday. He is much more awake and alert although his speech is a bit garbled. Current labs are good white count 6.3, hemoglobin 7.2, hematocrit 24.2, and a platelet count of 113,000. Sodium 132, potassium 4.9, chlorides 103, CO2 25, BUN 83, creatinine 3.76. Glucose is 236. Chest x-ray is improved. The patient's procalcitonin level was 0.15. The most recent N-terminal proBNP was 7190. Progress note dated March 12, 2024. 68-year-old male with a history of multiple medical problems including kidney transplantation, CABG/aortic valve replacement, pneumonia, CHF, atrial fibrillation, etc. The patient was recently inpatient here, and was discharged to a local alf. After short period of time there, he was discharged home, but did poorly at home, and was brought back to the emergency room. Currently, he is on BiPAP, with settings of 12/5, 40%. He wore it all night. If he is not wearing BiPAP, he is on nasal O2 at between 3 to 4 L/min. The patient is getting saline at 10 cc an hour, and a Lasix drip at 10 mg an hour. White count is 5.5, hemoglobin 7.2, hematocrit 23.8, platelet count 134,000. Sodium 130, potassium 4.3, chlorides 102, CO2 25, BUN 80, creatinine 3.49. The patient's glucose is 313. Blood cultures are negative. Chest x-ray shows right lower lobe airspace opacities. There is cardiomegaly, and pulmonary vascular congestion. On 03/13/2024, the patient is being seen for a follow-up. The patient is cur rently in the intensive care unit for decompensated CHF and fluid overload. The patient is currently on 3 L of oxygen by nasal cannula. His chest x-ray still showing cardiomegaly and bilateral pleural effusion and pulmonary vessel congestion/edema. Most recent chest x-ray from this morning on 03/13/2024 and is consistent with pulmonary edema. The patient is currently off dobutamine and he is also off dopamine and the patient is currently on Lasix drip at 10 mg an hour. Urine output is adequate and the patient is in a negative fluid balance of 593 cc over the past 12 hours. His sodium is at 129, potassium is at 4.3, BUN is 78 with a creatinine of 3.05 and the patient's white cell count is 5.1 with a hemoglobin 7.2 and a platelet count of 130. He remains in atrial fibrillation. He is currently on amiodarone 200 mg p.o. daily and is also on metoprolol 25 mg p.o. 3 times daily. He remains on anticoagulation with Eliquis 2.5 mg p.o. twice a day and Cardizem CD2 40 mg p.o. daily. He remains on immunosuppression regarding his renal transplantation the patient remains on Prograf 4 mg daily and low-dose prednisone 5 mg p.o. daily. Awake and alert and communicating. No encephalopathy. On 03/14/2024, the patient is being seen for a follow-up. The patient is calm and comfortable on 40s of oxygen by nasal cannula. The patient remains on Lasix drip at 10 mg an hour. Fluid balance is -1.3 L over the past 24 hours. No significant respiratory distress. No cough or sputum production. No chest tightness or wheezing. The patient has a BUN of 73 with a creatinine of 2.8 and the renal function continues to improve. The sodium is at 134 with a potassium level of 4.1. The white cell count is at 4.8 with a hemoglobin 7.2 and a platelet count of 152. Remains on amiodarone 5 mg p.o. daily. Remains on metoprolol 25 mg p.o. 3 times daily. Remains on Cardizem to 40 mg p.o. daily. Remains on anticoagulation with Eliquis 2.5 mg p.o. twice a day. Remains on Lasix drip and Zaroxolyn was also added yesterday and the dose of 5 mg p.o. daily. Remains on immunosuppression regarding his renal transplantation. Objective - Vital Signs Vital signs: Vital Signs Temp 98.2 F 03/14/24 08:00 Pulse 98 03/14/24 09:23 Resp 15 03/14/24 08:00 BP 101/58 03/14/24 08:00 Pulse Ox 97 03/14/24 09:05 FiO2 40 03/14/24 05:00 Intake & Output 03/13/24 03/14/24 03/14/24 18:59 06:59 18:59 Intake Total 1300.167 240 230 Output Total 1450 1450 250 Balance -149.833 -1210 -20 Weight 97.8 kg Intake: IV 120 20 10 0.9 120 20 10 Intake, IV Titration 180.167 100 Amount Furosemide 100 mg In 180.167 100 Sodium Chloride 0.9% 90 ml @ 10 MG/HR 10 mls/hr IV .Q10H [facility] Rx#: [id number] Oral 500 120 220 Tube Feeding 500 Output: Urine 1450 1450 250 Other: Voiding Method Indwelling Catheter Indwelling Catheter # Bowel Movements 1 0 - Exam No acute distress, much improved, currently on nasal O2, at 4 L of oxygen by nasal cannula Head exam was generally normal. There was no scleral icterus or corneal arcus. Mucous membranes were moist. HEENT examination is grossly unremarkable. Mucous membranes are moist. No oral lesions. Neck supple. Full range of motion. No adenopathy thyromegaly or neck vein distention. Cardiovascular examination reveals an regular rhythm and rate. S1-S2 normal. No S3 or S4. Systolic ejection murmur grade 3/6 heard throughout the precordium including left lateral sternal border and apex. Lungs reveal bilateral coarse rhonchi. Basilar crackles are noted. No wheezes. Breath sounds are equal bilaterally. Abdomen obese, but without tenderness. Extremities are intact. No signs or clubbing. There is 2-3+ edema. Skin is without rash or lesion. Neurologic examination is brief but nonfocal. - Labs CBC & Chem 7: 03/14/24 05:42 03/14/24 05:42 Labs: Abnormal Lab Results - Last 24 Hours (Table) 03/13/24 03/13/24 03/13/24 Range/Units 11:45 16:26 20:49 RBC (4.30-5.90) m/uL Hgb (13.0-17.5) gm/dL Hct (39.0-53.0) % MCHC (31.0-37.0) g/dL RDW (11.5-15.5) % Sodium (137-145) mmol/L BUN (9-20) mg/dL Creatinine (0.66-1.25) mg/dL Glucose (74-99) mg/dL POC Glucose (mg/dL) 337 H 416 H 411 H (70-110) mg/dL 03/14/24 03/14/24 03/14/24 Range/Units 05:42 05:42 05:45 RBC 2.49 L (4.30-5.90) m/uL Hgb 7.2 L (13.0-17.5) gm/dL Hct 23.9 L (39.0-53.0) % MCHC 30.3 L (31.0-37.0) g/dL RDW 16.4 H (11.5-15.5) % Sodium 134 L (137-145) mmol/L BUN 73 H (9-20) mg/dL Creatinine 2.80 H (0.66-1.25) mg/dL Glucose 216 H (74-99) mg/dL POC Glucose (mg/dL) 248 H (70-110) mg/dL Microbiology - Last 24 Hours (Table) 03/10/24 12:54 Blood Culture - Preliminary Blood Assessment and Plan Plan: Acute hypoxemic respiratory failure, secondary to CHF, in a patient with heart failure, and a preserved ejection fraction (HFPEF). The patient is currently on 4 L of oxygen by nasal cannula, no signs of any respiratory distress at rest. The patient had a recent admission to this hospital, with an episode of respi ratory failure secondary to CHF, pneumonia, and atrial fibrillation/RVR, requiring cardioversion. Current rhythm is atrial fibrillation, continues to be slightly tachycardic. Meanwhile, the patient is still stable and the oxygenation and he remains on 40 Suboxone nasal cannula. Acute pulmonary edema, preserved LV function and echocardiogram that was done on 03/10/2023 showed LV function, bioprosthetic aortic valve with a peak gradient of 37 mm with trace regurgitation and the patient also had a moderate degree of mitral regurgitation Acute on chronic kidney injury. Creatinine is improving and the creatinine is improving, and the patient remains on Lasix drip at the rate of 10 mg an hour, negative fluid balance Mental status change, improved and the patient is awake and alert x 3 coronary artery disease, with previous bypass surgery in 2019 along with aortic valve replacement History of renal transplantation, [facility], 2013. Maintained on Prograft 1 mg daily and prednisone 5 mg daily History of previous bypass grafting/AVR, [facility], 2019. Chronic atrial fibrillation/ A flutter with rapid ventricular response at time of admission the patient is S/P transesophageal echocardiogram, and cardioversion, February 17, 2024. Rate is controlled for now and the patient remains on amiodarone and metoprolol and the patient is also on anticoagulation with Eliquis. The patient is on amiodarone 200 mg p.o. daily, Cardizem 240 mg p.o. daily and metoprolol 25 mg p.o. 3 times daily. Chronic kidney disease. History of hypertension. COPD, from previous tobacco use. History of dyslipidemia. History of diabetes mellitus type II, Levemir 30 units BId and NovoLog 15 units with meals and SS History of gout. Obesity. History of CVA, age 42. Hyponatremia secondary to above and the patient is currently sodium levels at 134, improved Plan: Titrate oxygen to maintain saturation above 90%, currently on 4 L Keep legs elevated Continue Lasix 10 mg an hour in addition to Zaroxolyn 5 mg p.o. daily Monitor electrolytes and renal function the creatinine is improving Nephrology on the case and the patient is currently on a combination of Prograf and prednisone Continue amiodarone, Cardizem and metoprolol for rate control and the patient is anticoagulated with Eliquis, the patient remains in atrial fibrillation. Rest of the medication will be kept unchanged. Will continue to follow this patient's case along with the rest of the consultants. Hemodynamically stable at this point in time.
--- NOTE | 2024-03-14 12:27 | P.PN ---
Subjective Progress Note Date: 03/14/24 SOB The patient is a 68-year-old gentleman with a past medical history significant for CAD status post CABG as well as history of heart failure with a preserved ejection fraction and also atrial fibrillation and valvular heart disease status post aortic valve replacement and hypertension and dyslipidemia and renal transplant as well as multiple comorbid conditions who was admitted to the hospital with acute hypoxic respiratory failure associated with change in mental status. March 11, 2024 The patient was seen and evaluated this morning. He is lethargic. He continues to be on BiPAP. The echo showed normal LV systolic function with bioprosthetic aortic valve and a peak gradient of about 20 mmHg across the valve. Currently he is on dobutamine. I am going to stop the dobutamine in the light of the patient having normal LV systolic function and beside that he is hemodynamically stable as [id number] currently he is somewhat tachycardic. He continues to be on IV diuretics. Creatinine remains elevated. the examination is remarkable for change in mental status with a stable vital signs besides tachycardia and regular rate and rhythm and systolic murmur and diminished breathing sounds bilaterally and no edema was noted in the lower extremities March 12, 2024 The patient was seen and evaluated this morning. He is mentation has improved somewhat. He remains hemodynamically stable beside being slightly tachycardic. He is on amiodarone and he is on Cardizem and beside that I am going to start the patient on small dose of beta-amy with metoprolol and uptitrate the dose if the pressure permits. He still in overt heart failure with bilateral lower extremities edema and he is still hypoxic requiring BiPAP. No symptoms of chest pain or chest discomfort. He is on oral anticoagulation. He was started on Lasix drip by the nephrology service. The examination is remarkable for regular rhythm with sinus tachycardia and diminished breathing sounds bilaterally and moderate bilateral lower extremities edema 03/13/2024 Patient is seen and examined at bedside this a.m. On telemetry patient is in sinus tachycardia, heart rate 120 bpm. Normotensive. On exam Patient still appears volume overloaded with 3+ pitting edema in bilateral lower extremity. He has elevated JVD, crackles in bilateral lung gage with poor inspiratory effort. Abdomen is nondistended. S1-S2 audible, no murmurs appreciated. 03/14/24 And is seen and examined at bedside this a.m. He is sitting in a chair comfortable position. He denies any active chest pain chest pressure. She will reports significant fatigue and shortness of breath with minimal exertion. On patient still appears volume overloaded with 2+ pitting edema in bilateral lower extremity. Swelling in lower extremities slightly better as compared to yesterday. He has had good urine output with metolazone and IV Lasix drip. He has crackles in bilateral lung gage with poor inspiratory effort, abdomen is nondistended, S1-S2 is audible, no murmurs appreciated Labs shows hemoglobin 7.2, hemoglobin is stable at 7.2. BUN 73 slightly better as compared to before, kidney function is improving creatinine 2.8 slightly better as compared to before Assessment Acute hypoxic respiratory failure Heart failure with a preserved ejection fraction Atrial fibrillation with RVR Acute on chronic anemia Change in mental status Renal failure and history of renal transplant Valvular heart disease as described above Multiple comorbid conditions Plan Continue IV Lasix drip and metolazone. Patient is having good urine output at this time. His kidney function is improving. Consider 1 more day of IV Lasix and metolazone. Consider switching to Lasix pushes from day after tomorrow. Patient's hemoglobin is 7.2. No signs of active bleeding. Patient had hemorrhoidal bleeding at home prior to coming to the hospital. Currently on Eliquis 2.5. Will continue Eliquis and monitor hemoglobin. If hemoglobin drops below 7, transfuse. His last iron study shows that his ferritin is high with low iron binding capacity suggestive of anemia of chronic disease and CKD Increase metoprolol to 100 mg twice daily Amiodarone 200 mg daily, Eliquis 2.5 mg, aspirin 81 mg, atorvastatin 40 mg Objective - Vital Signs Vital signs: Vital Signs Temp 98.2 F 03/14/24 08:00 Pulse 124 H 03/14/24 11:00 Resp 12 03/14/24 11:00 BP 118/56 03/14/24 11:00 Pulse Ox 91 L 03/14/24 11:00 FiO2 40 03/14/24 05:00 Intake & Output 03/13/24 03/14/24 03/14/24 18:59 06:59 18:59 Intake Total 1300.167 240 340 Output Total 1450 1450 600 Balance -149.833 -1210 -260 Weight 97.8 kg 97.8 kg Intake: IV 120 20 20 0.9 120 20 20 Intake, IV Titration 180.167 100 100 Amount Furosemide 100 mg In 180.167 100 100 Sodium Chloride 0.9% 90 ml @ 10 MG/HR 10 mls/hr IV .Q10H [facility] Rx#: [id number] Oral 500 120 220 Tube Feeding 500 Output: Urine 1450 1450 600 Other: Voiding Method Indwelling Catheter Indwelling Catheter Indwelling Catheter # Bowel Movements 1 0 - Labs CBC & Chem 7: 03/14/24 05:42 03/14/24 05:42 Labs: Abnormal Lab Results - Last 24 Hours (Table) 03/13/24 03/13/24 03/14/24 Range/Units 16:26 20:49 05:42 RBC 2.49 L (4.30-5.90) m/uL Hgb 7.2 L (13.0-17.5) gm/dL Hct 23.9 L (39.0-53.0) % MCHC 30.3 L (31.0-37.0) g/dL RDW 16.4 H (11.5-15.5) % Sodium (137-145) mmol/L BUN (9-20) mg/dL Creatinine (0.66-1.25) mg/dL Glucose (74-99) mg/dL POC Glucose (mg/dL) 416 H 411 H (70-110) mg/dL 03/14/24 03/14/24 03/14/24 Range/Units 05:42 05:45 11:54 RBC (4.30-5.90) m/uL Hgb (13.0-17.5) gm/dL Hct (39.0-53.0) % MCHC (31.0-37.0) g/dL RDW (11.5-15.5) % Sodium 134 L (137-145) mmol/L BUN 73 H (9-20) mg/dL Creatinine 2.80 H (0.66-1.25) mg/dL Glucose 216 H (74-99) mg/dL POC Glucose (mg/dL) 248 H 267 H (70-110) mg/dL Microbiology - Last 24 Hours (Table) 03/10/24 12:54 Blood Culture - Preliminary Blood
[2024-03-14] MEDS: Acetaminophen-Codeine 300-30mg TAB PO PRN (14:58)
[2024-03-14 17:25] LABS: Glucose,Whole Blood 413 mg/dL (70-110)
[2024-03-14] MEDS ORDERED: METOPROLOL TARTRATE 50 MG TAB PO SCH (21:00)
[2024-03-14 21:29] LABS: Glucose,Whole Blood 375 mg/dL (70-110)
[2024-03-14] MEDS: METOPROLOL TARTRATE 50 MG TAB PO SCH (21:38)
--- NOTE | 2024-03-15 05:50 | P.PN ---
Subjective Progress Note Date: 03/14/24 HISTORY OF PRESENT ILLNESS: 68-year-old office patient with active medical history of atherosclerotic heart disease post CABG, end-stage renal disease post renal transplant at [facility] over 10 years ago, chronic stage IIIb kidney disease, hypertension, hyperlipidemia, chronic neuropathy, obesity, obstructive sleep apnea, mild peripheral arterial disease, who was back at [facility] few months ago for worsening kidney function was hospitalized for few days. He was hospitalized on 02/15/2024 with acute respiratory failure secondary to left-sided pneumonia along with combination of heart failure left-sided pneumonia and A-fib with RVR also had acute kidney injury required dialysis for a few sessions the patient finally reversed. He has done well and is being treated for CHF, COPD, left-sided pneumonia and A-fib medication and adjustment was made patient currently be debilitated require oxygen and updraft treatment on the clock presented again to [facility] rehab for almost 10 days. He still not able to be fully independent the sister decided to bring him to our office with extra help Rosalba is regarding at this point the patient developed to have acute rectal bleeding claimed to be hemorrhoid with significant blood. Anticoagulation was held late yesterday and To be on hold. Patient become extremely confused with worsening mental status and worsening mentation ended up Bring him to the emergency department at [facility] via EMS for the above problem. Was unresponsive initially but continued to have significant dyspnea and worsening confusion Limited attempted to Cintron catheter for better watching his kidney function especially with IV diuretics patient become very combative confused delusional and having worsening mental status. Finding at this point again with EKG showing supraventricular tachycardia with pulse rate of 108 looks like A-fib or a flutter at this point. CAT scan of the brain did n ot show any acute bleed, chest x-ray showed moderate to marked of CHF significant interval worsening compared to the previous study before he left the hospital last time. Laboratory value showed hemoglobin of 8.2 which is close to his baseline blood gas showed significant hypoxia with carbon dioxide retention creatinine is up to 3.46 with bun at 75 with worsening compared to before GFR is down to 17. Metabolic symptoms patient be hospitalized will be seen neurology, nephrology, pulmonary and cardiology. 03/10/2024: The patient was admitted late last night he still in the ER hold for admission he continued to have significant altered mental status with severe encephalopathy not clear also kidney function is much worse with GFR down to 70, had anemia with hemoglobin at 7 continue to have tachycardia and patient was placed on amiodarone from his last admission along with part of the dose of metoprolol and Cardizem. Also patient had severe confusion, type 2 diabetes was better controlled and is not bleeding at this point half the dose of insulin is causing hypoglycemia which will be changed currently. The patient remained on respiratory failure due to recurrent condition we will continue aggressive management continue gentle hydration progressive kidney failure at this point awaiting for nephrology consult if further decline in kidney function patient might require to go on hemodialysis. The patient mental status being awake there is no other significant or focalized problem consistent with neurological type disease with stroke or mini stroke but this is more encephalopathy related to his metabolic problem, hypoxia, hypoglycemia and other. 03/13/2024: Through the weekend patient remain on IV drip at 10 mg an hour making enough urine also remain on oral amiodarone and oral Cardizem for A-fib with RVR, continue higher flow O2. Hemoglobin remained at 7.2 did not require any transfusion BUN is up to 80 with creatinine 2.49 blood sugar remained quite bit high remain on 5 units of NovoLog AC meals plus sliding scales still on 15 units of Levemir which simply cannot be increased at this point. Continue to be watched and managed by nephrology, pulmonary and cardiology at this point patient still in the ICU currently will be transferable hopefully within the next 24 hours. 03/14/2024: He is feeling better so far Was on BiPAP for few hours overnight only, he is off vasopressor, still on IV Lasix drip at 10 mg an hour, BUN is down 73 with creatinine 2.8 slight improvement so far hemoglobin is 7.2. Still in A-fib with amiodarone and metoprolol currently and continue Cardizem CD2 140 mg daily. Blood sugar brown still fluctuating and adjustment of insulin was made which is not enough so far will go higher on Levemir to 40 units twice a day also NovoLog will be up to 20 units 3 times a day besides sliding scales. Patient started eating more expect hyperglycemia more than hypoglycemia at this point. Nephrology standpoint for still believe that acute kidney injury was secondary to cardiorenal syndrome continue to take Lasix drip patient renal function is improving gradually no sign of obstruction and the patient's creatinine baseline runs around 1.8 close to stage IIIb chronic kidney disease continue current management to help the kidney function. Apparently Zaroxolyn was added at 5 mg a day to improve diuretics effect. With the A-fib and tachycardia on metoprolol was increased up to 100 mg twice a day. REVIEW OF SYSTEMS: CONSTITUTIONAL: Morbid obesity and mild respiratory distress. Severely confused. EYES: No icterus sclerae, no conjunctivitis. EARS, NOSE, MOUTH, THROAT, and FACE: No sore throat, lymphadenopathy, carotid bruits or deformity. RESPIRATORY: Positive shortness of breath cough or wheezes. CARDIOVASCULAR: Positive PND orthopnea palpitation. GASTROINTESTINAL: No Abd pain, Nausea or vomiting, no Diarrhea or constipation, No GI Bleed, no distention or masses. GENITOURINARY: No polyuria nocturia without any hematuria. INTEGUMENT/BREAST: Negative for any muscular injury with mild osteoarthritis.. HEMATOLOGIC/LYMPHATIC: Chronic anemia with no bleeding. MUSCULOSKELTAL: Negative for Myalgia or arthralgia. NEURLOGICAL: Severe confusion with significant lack of response at this point with worsening mental status. BEHAVIORAL/PSYCH: Negative. ENDOCRINE: Negative. PHYSICAL EXAMINATION: General Appearance: Overweight in mild respiratory distress. Neck HEENT: Supple, no lymphadenopathy, no thyroid enlargement, no carotid bruits. Lungs: Decreased breath sound bilaterally especially the left side with fine rhonchi positive crackles in the bases positive mild inspiratory expiratory wheezes. Chest Wall: Decreased expansion with deep inspiration no tenderness and no deformity was found on exam, no costochondral pain or discomfort. Heart: Irregular rate and rhythm, S1, S2 positive S3 positive PVCs. Back: Symmetric, no curvature, ROM normal, no CVA tenderness. Abdomen: Soft, non-tender, bowel sounds active all four quadrants, no masses, no organomegaly. Extremities: Extremities normal, atraumatic, no cyanosis positive edema. Pulses: 2+ and symmetric. Skin: Skin color, texture, tugor normal, no rashes or lesions. Neurologic: Alert oriented severe confusion cranial nerves II through XII intact, no motor deficit, no abnormal balance or gait. ASSESSMENT AND PLAN: _Severe altered mental status: Mostly metabolic encephalopathy, much better so far with significant improvement especially improving the hypoxia, fluid overload and hypotension. T _Acute kidney injury with worsening kidney function continue current management continue to watch kidney function creatinine is improving gradually with GFR of Is up to 22. Creatinine 2.8 with bun 73. _Acute respiratory failure: Combination of congestive heart failure along with arrhythmia and possible bronchitis or pneumonia continue to treat underlying disease. Patient will require higher oxygen concentration might benefit from having BiPAP awaiting for pulmonary. _Severe anasarca and fluid overload: Continue Lasix drip 10 mg an hour and continue Zaroxolyn 5 mg daily which both seem to work really well. _Congestive heart failure acute with mild exacerbation mostly resolved. Fraction congestive heart failure but still systolic dysfunction and affected by the kidney failure making it worse. _A-fib with RVR: Pulse rate was much higher remain on amiodarone 200 mg daily along with Cardizem CD 240 mg a day and metoprolol up to 100 mg twice a day, also still on anticoagulation still seeing cardiology. _Coronary artery disease post bypass surgery from 2019 has not had any chest pain or angina and even if there is a complaint so far patient is not in any condition to go for an intervention. _GI bleed mostly severe hemorrhoid not significant drop in hemoglobin at this point but still at 8.2 will consult general surgery for checking his rectal area and terminal sigmoid. _Type 2 diabetes not well-controlled noncompliance to medication has been mostly on Lantus 70 units daily along with NovoLog 35 units AC meals plus sliding scales coverage. Titrate insulin as needed. _End-stage renal disease posttransplant remain on antirejection drugs will consult nephrology continue mycophenolate acid along with Prograf and still on prednisone 5 mg daily. _Hypertension: Remain on diltiazem CD 240 mg a day, metoprolol 100 mg twice a day. _Hyperlipidemia: Has been on Lipitor 40 mg a day currently medication. _BPH watch for any urinary retention. _Anticoagulation: Was on Eliquis 2.5 mg twice a day hold medication at this point with the GI bleed is better. _GI prophylaxis: Patient be on Pepcid 20 mg daily. CODE STATUS: Full code. Discussion: Remain on IV Lasix remain in ICU on BiPAP improving gradually will p robably end up staying in the ICU another day. Will see if he can do limited physical therapy while is in the ICU at this point. Objective - Vital Signs Vital signs: Vital Signs Temp 98.4 F 03/13/24 23:00 Pulse 120 H 03/14/24 02:00 Resp 15 03/14/24 02:00 BP 132/58 06/11/24 02:00 Pulse Ox 100 03/14/24 02:00 FiO2 40 03/14/24 02:00 Intake & Output 03/13/24 03/13/24 03/14/24 06:59 18:59 06:59 Intake Total 659.260 0964.167 240 Output Total 1375 1450 1450 Balance -955.667 -149.833 -1210 Weight 101.3 kg Intake: IV 120 120 20 0.9 120 120 20 Intake, IV Titration 99.333 180.167 100 Amount Furosemide 100 mg In 99.333 180.167 100 Sodium Chloride 0.9% 90 ml @ 10 MG/HR 10 mls/hr IV .Q10H [facility] Rx#: [id number] Oral 200 500 120 Tube Feeding 500 Output: Urine 1375 1450 1450 Other: Voiding Method Indwelling Catheter Indwelling Catheter Indwelling Catheter # Bowel Movements 1 0 - Labs CBC & Chem 7: 03/14/24 05:42 03/14/24 05:42 Labs: Abnormal Lab Results - Last 24 Hours (Table) 03/13/24 03/13/24 03/13/24 Range/Units 04:25 06:24 11:45 POC Glucose (mg/dL) 267 H 337 H (70-110) mg/dL Hemoglobin A1c 7.2 H (<=6.0) % 03/13/24 03/13/24 Range/Units 16:26 20:49 POC Glucose (mg/dL) 416 H 411 H (70-110) mg/dL Hemoglobin A1c (<=6.0) % Microbiology - Last 24 Hours (Table) 03/10/24 12:54 Blood Culture - Preliminary Blood
[2024-03-15 06:28] LABS: Anisocytosis Slight; Basophils % (A) 0 %; Eosinophils # (A) 0.2 k/uL (0-0.7); Eosinophils % (A) 6 %; HCT 22.6 % (39.0-53.0); Hypochromasia Marked; Lymphocytes # (A) 0.8 k/uL (1.0-4.8); Lymphocytes % (A) 21 %; MCH 29.6 pg (25.0-35.0); MCHC 31.1 g/dL (31.0-37.0); MCV 95.3 fL (80.0-100.0); Mean Platelet Volume 8.7; Monocytes # (A) 0.3 k/uL (0-1.0); Monocytes % (A) 9 %; Neutrophils # (A) 2.4 k/uL (1.3-7.7); Neutrophils % (A) 62 %; Platelet Count 139 k/uL (150-450); RBC 2.37 m/uL (4.30-5.90); RDW 16.6 % (11.5-15.5); WBC 3.8 k/uL (3.8-10.6)
[2024-03-15 06:41] LABS: African American GFR (CKD) 27 (>60 ml/min/1.73 sqM); Anion Gap 1 mmol/L; Blood Urea Nitrogen 78 mg/dL (9-20); Calcium 9.1 mg/dL (8.4-10.2); Carbon Dioxide 32 mmol/L (22-30); Chloride 100 mmol/L (98-107); Glucose 239 mg/dL (74-99); Non-African American GFR(CKD) 24 (>60 ml/min/1.73 sqM); Potassium 4.3 mmol/L (3.5-5.1); Sodium 133 mmol/L (137-145)
[2024-03-15 06:53] LABS: Glucose,Whole Blood 247 mg/dL (70-110)
[2024-03-15] MEDS: INSULIN ASPART (NovoLOG) 100 UNIT/ML VIAL SQ SCH (07:08)
[2024-03-15] MEDS: INSULIN DETEMIR (LEVEMIR) 100 UNIT/ML SYR SQ SCH (09:13)
[2024-03-15 11:40] LABS: Glucose,Whole Blood 198 mg/dL (70-110)
--- NOTE | 2024-03-15 12:25 | P.PN ---
Subjective patient is seen for follow-up for acute kidney injury and chronic kidney disease. Currently maintained on Lasix drip for volume overload along with Zaroxolyn. Urine output slightly improved to 4.3 L for 24 hours. Lower extremity swelling has improved. Respiratory status has improved as well. Serum creatinine decreased to 2.6 Objective - Vital Signs Vital signs: Vital Signs Temp 98.2 F 03/15/24 08:00 Pulse 125 H 03/15/24 08:00 Resp 14 03/15/24 08:00 BP 116/66 03/15/24 08:00 Pulse Ox 95 03/15/24 08:00 FiO2 40 03/15/24 00:09 Intake & Output 03/14/24 03/15/24 03/15/24 18:59 06:59 18:59 Intake Total 1360 340 90.5 Output Total 1575 2820 Balance -215 -2480 90.5 Weight 97.8 kg 97 kg Intake: IV 80 240 0.9 80 Sodium Chloride 0.9% 1, 240 000 ml @ 20 mls/hr IV . Q24H [facility] Rx#:[id number] Intake, IV Titration 100 100 90.5 Amount Furosemide 100 mg In 100 100 90.5 Sodium Chloride 0.9% 90 ml @ 10 MG/HR 10 mls/hr IV .Q10H [facility] Rx#: [id number] Oral 1180 Output: Urine 1575 2820 Other: Voiding Method Indwelling Catheter Indwelling Catheter Indwelling Catheter - Exam patient is awake, comfortable, alert oriented 3. 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 exam grossly intact - Labs CBC & Chem 7: 03/15/24 06:16 03/15/24 06:16 Labs: Abnormal Lab Results - Last 24 Hours (Table) 03/14/24 03/14/24 03/15/24 Range/Units 17:23 21:27 06:16 RBC 2.37 L (4.30-5.90) m/uL Hgb 7.0 L (13.0-17.5) gm/dL Hct 22.6 L (39.0-53.0) % RDW 16.6 H (11.5-15.5) % Plt Count 139 L (150-450) k/uL Lymphocytes # 0.8 L (1.0-4.8) k/uL Sodium (137-145) mmol/L Carbon Dioxide (22-30) mmol/L BUN (9-20) mg/dL Creatinine (0.66-1.25) mg/dL Glucose (74-99) mg/dL POC Glucose (mg/dL) 413 H 375 H (70-110) mg/dL 03/15/24 03/15/24 03/15/24 Range/Units 06:16 06:52 11:39 RBC (4.30-5.90) m/uL Hgb (13.0-17.5) gm/dL Hct (39.0-53.0) % RDW (11.5-15.5) % Plt Count (150-450) k/uL Lymphocytes # (1.0-4.8) k/uL Sodium 133 L (137-145) mmol/L Carbon Dioxide 32 H (22-30) mmol/L BUN 78 H (9-20) mg/dL Creatinine 2.68 H (0.66-1.25) mg/dL Glucose 239 H (74-99) mg/dL POC Glucose (mg/dL) 247 H 198 H (70-110) mg/dL Assessment and Plan Assessment: 1. Acute kidney injury secondary to cardiorenal syndrome. Currently maintained on Lasix drip. Renal function is improving. No evidence of obstruction on ult rasound. 2. CK D stage III B with baseline creatinine 1.8 to 2.0 mg/dL secondary to chronic allograft nephropathy and cardiorenal syndrome. 3. acute hypoxic respiratory failure secondary to CHF and fluid overload 4. Volume overload 5. Acute on chronic diastolic CHF with moderate mitral regurgitation 6. Status post donor renal transplant in 2012 at [facility] maintained on tacrolimus, prednisone and Myfortic. tacrolimus level high at 9.8 on 03/11/2024. Dose has been decreased and repeat level was 6.9. This will be repeated again. 7. Hypertension with CK D stage III 8. Hypervolemic hyponatremia. Plan: continue decreased dose of Prograf. repeat level again in 1-2 days. Continue with Lasix drip continue Zaroxolyn 5 mg daily. Repeat labs in a.m.
[2024-03-15] MEDS: METOPROLOL TARTRATE 50 MG TAB PO STA (13:29)
--- NOTE | 2024-03-15 13:48 | P.PN ---
Subjective Progress Note Date: 03/15/24 SOB The patient is a 68-year-old gentleman with a past medical history significant for CAD status post CABG as well as history of heart failure with a preserved ejection fraction and also atrial fibrillation and valvular heart disease status post aortic valve replacement and hypertension and dyslipidemia and renal transplant as well as multiple comorbid conditions who was admitted to the hospital with acute hypoxic respiratory failure associated with change in mental status. March 11, 2024 The patient was seen and evaluated this morning. He is lethargic. He continues to be on BiPAP. The echo showed normal LV systolic function with bioprosthetic aortic valve and a peak gradient of about 20 mmHg across the valve. Currently he is on dobutamine. I am going to stop the dobutamine in the light of the patient having normal LV systolic function and beside that he is hemodynamically stable as [id number] currently he is somewhat tachycardic. He continues to be on IV diuretics. Creatinine remains elevated. the examination is remarkable for change in mental status with a stable vital signs besides tachycardia and regular rate and rhythm and systolic murmur and diminished breathing sounds bilaterally and no edema was noted in the lower extremities March 12, 2024 The patient was seen and evaluated this morning. He is mentation has improved somewhat. He remains hemodynamically stable beside being slightly tachycardic. He is on amiodarone and he is on Cardizem and beside that I am going to start the patient on small dose of beta-amy with metoprolol and uptitrate the dose if the pressure permits. He still in overt heart failure with bilateral lower extremities edema and he is still hypoxic requiring BiPAP. No symptoms of chest pain or chest discomfort. He is on oral anticoagulation. He was started on Lasix drip by the nephrology service. The examination is remarkable for regular rhythm with sinus tachycardia and diminished breathing sounds bilaterally and moderate bilateral lower extremities edema 03/13/2024 Patient is seen and examined at bedside this a.m. On telemetry patient is in sinus tachycardia, heart rate 120 bpm. Normotensive. On exam Patient still appears volume overloaded with 3+ pitting edema in bilateral lower extremity. He has elevated JVD, crackles in bilateral lung gage with poor inspiratory effort. Abdomen is nondistended. S1-S2 audible, no murmurs appreciated. 03/14/24 And is seen and examined at bedside this a.m. He is sitting in a chair comfortable position. He denies any active chest pain chest pressure. She will reports significant fatigue and shortness of breath with minimal exertion. On patient still appears volume overloaded with 2+ pitting edema in bilateral lower extremity. Swelling in lower extremities slightly better as compared to yesterday. He has had good urine output with metolazone and IV Lasix drip. He has crackles in bilateral lung gage with poor inspiratory effort, abdomen is nondistended, S1-S2 is audible, no murmurs appreciated Labs shows hemoglobin 7.2, hemoglobin is stable at 7.2. BUN 73 slightly better as compared to before, kidney function is improving creatinine 2.8 slightly better as compared to before 03/15/2024 Blood pressure 116/66, heart rate 125 bpm, sinus tachycardia. Other differential includes atrial flutter. On review of telemetry it appears likely to be sinus tachycardia. Hemoglobin 7.0, hemoglobin has trended down slowly since admission. On admission Will 8.2. BUN 78, creatinine 2.68. Creatinine is slowly improved over the last few days. On admission it was 4.1 Patient had 2 L urine output yesterday. Assessment Acute hypoxic respiratory failure Heart failure with a preserved ejection fraction Atrial fibrillation with RVR Acute on chronic anemia Change in mental status Renal failure and history of renal transplant Valvular heart disease as described above Multiple comorbid conditions Plan Give 1 unit of blood transfusion as patient's hemoglobin is 7 and patient has h ypoxic respiratory failure because of HFpEF exacerbation and atrial fibrillation history. He also has sinus tachycardia at this time. Continue IV Lasix drip and metolazone. Patient is having good urine output at this time. His kidney function is improving. Consider 1 more day of IV Lasix and metolazone. Consider switching to Lasix pushes from day after tomorrow. Currently on Eliquis 2.5. Will continue Eliquis and monitor hemoglobin. His last iron study shows that his ferritin is high with low iron binding capacity suggestive of anemia of chronic disease and CKD Increase metoprolol to 100 mg twice daily Amiodarone 200 mg daily, Eliquis 2.5 mg, aspirin 81 mg, atorvastatin 40 mg Objective - Vital Signs Vital signs: Vital Signs Temp 98.2 F 03/15/24 08:00 Pulse 125 H 03/15/24 08:00 Resp 14 03/15/24 08:00 BP 116/66 03/15/24 08:00 Pulse Ox 95 03/15/24 08:00 FiO2 40 03/15/24 00:09 Intake & Output 03/14/24 03/15/24 03/15/24 18:59 06:59 18:59 Intake Total 1360 340 90.5 Output Total 1575 2820 Balance -215 -2480 90.5 Weight 97.8 kg 97 kg Intake: IV 80 240 0.9 80 Sodium Chloride 0.9% 1, 240 000 ml @ 20 mls/hr IV . Q24H [facility] Rx#:[id number] Intake, IV Titration 100 100 90.5 Amount Furosemide 100 mg In 100 100 90.5 Sodium Chloride 0.9% 90 ml @ 10 MG/HR 10 mls/hr IV .Q10H [facility] Rx#: [id number] Oral 1180 Output: Urine 1575 2820 Other: Voiding Method Indwelling Catheter Indwelling Catheter Indwelling Catheter - Labs CBC & Chem 7: 03/15/24 06:16 03/15/24 06:16 Labs: Abnormal Lab Results - Last 24 Hours (Table) 03/14/24 03/14/24 03/15/24 Range/Units 17:23 21:27 06:16 RBC 2.37 L (4.30-5.90) m/uL Hgb 7.0 L (13.0-17.5) gm/dL Hct 22.6 L (39.0-53.0) % RDW 16.6 H (11.5-15.5) % Plt Count 139 L (150-450) k/uL Lymphocytes # 0.8 L (1.0-4.8) k/uL Sodium (137-145) mmol/L Carbon Dioxide (22-30) mmol/L BUN (9-20) mg/dL Creatinine (0.66-1.25) mg/dL Glucose (74-99) mg/dL POC Glucose (mg/dL) 413 H 375 H (70-110) mg/dL 03/15/24 03/15/24 03/15/24 Range/Units 06:16 06:52 11:39 RBC (4.30-5.90) m/uL Hgb (13.0-17.5) gm/dL Hct (39.0-53.0) % RDW (11.5-15.5) % Plt Count (150-450) k/uL Lymphocytes # (1.0-4.8) k/uL Sodium 133 L (137-145) mmol/L Carbon Dioxide 32 H (22-30) mmol/L BUN 78 H (9-20) mg/dL Creatinine 2.68 H (0.66-1.25) mg/dL Glucose 239 H (74-99) mg/dL POC Glucose (mg/dL) 247 H 198 H (70-110) mg/dL
--- NOTE | 2024-03-15 14:17 | P.PN ---
Subjective Progress Note Date: 03/15/24 68-year-old male who was recently inpatient here, for an episode of CHF, pn eumonia, and atrial fibrillation with RVR. The patient was discharged from this hospital, and went to [facility]. He was discharged from [facility] on March 07. He was brought back to the hospital, by EMS, yesterday, March 09. He apparently was confused and very lethargic. He had lower extremity edema. He apparently was having difficulty breathing, and he could not be managed at home by his family, so EMS was called. The patient is seen today in the emergency department, room 5. He is currently on 3 L. He is very lethargic and somnolent. He had a blood gas showing a pO2 of 75, pCO2 of 55, pH is 7.31. His N-terminal proBNP was 7190. The patient's chest x-ray was consistent with CHF. My plan is to move the patient to the intensive care unit, start him on dobutamine, and BiPAP. He has been seen by cardiology already. On his last visit here, the patient did require a cardioversion for his atrial fibrillation, and, he received diuretics, and antibiotics. Current laboratory data includes a white count 6.62, hemoglobin 7.7, hematocrit 26.1, and a platelet count of 136,000. Sodium 139, potassium 5.2, chlorides 103, CO2 24, BUN 76, and creatinine 4.1. Glucose is 100. Calcium 9.3. Albumin is 3.3. Troponins were negative x 2. Chest x-ray is consistent with cardiomegaly, and CHF. Brain CT shows a 3.4 x 1.5 cm area in the lateral right middle cranial fossa, which is unchanged, and consistent with a previous infarct/encephalomalacia. 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 In addition, the patient has chronic vessel ischemic disease. Progress note dated March 11, 2024. 68-year-old male with a history of multiple medical problems, was seen yesterday in the emergency department. We moved him to the ICU and placed him on BiPAP, with settings of 12/5, and 40%. I also initially placed him on dobutamine at 5 mcg/kg/min. The patient is getting saline at 10 cc an hour. Off of BiPAP, he is on 4 L nasal cannula. Cardiology turned to dobutamine off given his normal ejection fraction. The patient be started on a Lasix drip at 10 mg an hour. Clinically, the patient looks better today than he did yesterday. He is much more awake and alert although his speech is a bit garbled. Current labs are good white count 6.3, hemoglobin 7.2, hematocrit 24.2, and a platelet count of 113,000. Sodium 132, potassium 4.9, chlorides 103, CO2 25, BUN 83, creatinine 3.76. Glucose is 236. Chest x-ray is improved. The patient's procalcitonin level was 0.15. The most recent N-terminal proBNP was 7190. Progress note dated March 12, 2024. 68-year-old male with a history of multiple medical problems including kidney transplantation, CABG/aortic valve replacement, pneumonia, CHF, atrial fibrillation, etc. The patient was recently inpatient here, and was discharged to a local senior living. After short period of time there, he was discharged home, but did poorly at home, and was brought back to the emergency room. Currently, he is on BiPAP, with settings of 12/5, 40%. He wore it all night. If he is not wearing BiPAP, he is on nasal O2 at between 3 to 4 L/min. The patient is getting saline at 10 cc an hour, and a Lasix drip at 10 mg an hour. White count is 5.5, hemoglobin 7.2, hematocrit 23.8, platelet count 134,000. Sodium 130, potassium 4.3, chlorides 102, CO2 25, BUN 80, creatinine 3.49. The patient's glucose is 313. Blood cultures are negative. Chest x-ray shows right lower lobe airspace opacities. There is cardiomegaly, and pulmonary vascular congestion. On 03/13/2024, the patient is being seen for a follow-up. The patient is cur rently in the intensive care unit for decompensated CHF and fluid overload. The patient is currently on 3 L of oxygen by nasal cannula. His chest x-ray still showing cardiomegaly and bilateral pleural effusion and pulmonary vessel congestion/edema. Most recent chest x-ray from this morning on 03/13/2024 and is consistent with pulmonary edema. The patient is currently off dobutamine and he is also off dopamine and the patient is currently on Lasix drip at 10 mg an hour. Urine output is adequate and the patient is in a negative fluid balance of 593 cc over the past 12 hours. His sodium is at 129, potassium is at 4.3, BUN is 78 with a creatinine of 3.05 and the patient's white cell count is 5.1 with a hemoglobin 7.2 and a platelet count of 130. He remains in atrial fibrillation. He is currently on amiodarone 200 mg p.o. daily and is also on metoprolol 25 mg p.o. 3 times daily. He remains on anticoagulation with Eliquis 2.5 mg p.o. twice a day and Cardizem CD2 40 mg p.o. daily. He remains on immunosuppression regarding his renal transplantation the patient remains on Prograf 4 mg daily and low-dose prednisone 5 mg p.o. daily. Awake and alert and communicating. No encephalopathy. On 03/14/2024, the patient is being seen for a follow-up. The patient is calm and comfortable on 40s of oxygen by nasal cannula. The patient remains on Lasix drip at 10 mg an hour. Fluid balance is -1.3 L over the past 24 hours. No significant respiratory distress. No cough or sputum production. No chest tightness or wheezing. The patient has a BUN of 73 with a creatinine of 2.8 and the renal function continues to improve. The sodium is at 134 with a potassium level of 4.1. The white cell count is at 4.8 with a hemoglobin 7.2 and a platelet count of 152. Remains on amiodarone 5 mg p.o. daily. Remains on metoprolol 25 mg p.o. 3 times daily. Remains on Cardizem to 40 mg p.o. daily. Remains on anticoagulation with Eliquis 2.5 mg p.o. twice a day. Remains on Lasix drip and Zaroxolyn was also added yesterday and the dose of 5 mg p.o. daily. Remains on immunosuppression regarding his renal transplantation. On 03/15/2024, the patient is being seen for a follow-up. This morning, the patient remains on Lasix drip at 10 mg an hour. He is producing excellent urine output and the patient's fluid balance is -2.6 L over the past 24 hours. Also on Zaroxolyn. He is on 4 L of O2 nasal cannula with a pulse ox of 95%. BUN is a 78 with a creatinine of 2.6 and a sodium levels at 133 and a potassium level is at 4.3. WBC count has 3.8 with a hemoglobin of 7 and a platelet count of 139. The patient has also been in atrial fibrillation and is currently tachycardic. He remains on metoprolol 50 mg p.o. twice a day. He is on Cardizem CD to 40 mg p.o. daily and he remains on anticoagulation with Eliquis 2.5 mg p.o. twice a day. He remains on 40 units of Levemir insulin twice a day and 20 units with meals of NovoLog. Awake and alert and communicating. No other new complaints otherwise for now. Objective - Vital Signs Vital signs: Vital Signs Temp 98.2 F 03/15/24 08:00 Pulse 125 H 03/15/24 08:00 Resp 14 03/15/24 08:00 BP 116/66 03/15/24 08:00 Pulse Ox 95 03/15/24 08:00 FiO2 40 03/15/24 00:09 Intake & Output 03/14/24 03/15/24 03/15/24 18:59 06:59 18:59 Intake Total 1360 340 90.5 Output Total 1575 2820 Balance -215 -2480 90.5 Weight 97.8 kg 97 kg Intake: IV 80 240 0.9 80 Sodium Chloride 0.9% 1, 240 000 ml @ 20 mls/hr IV . Q24H THU Rx#:[id number] Intake, IV Titration 100 100 90.5 Amount Furosemide 100 mg In 100 100 90.5 Sodium Chloride 0.9% 90 ml @ 10 MG/HR 10 mls/hr IV .Q10H THU Rx#: [id number] Oral 1180 Output: Urine 1575 2820 Other: Voiding Method Indwelling Catheter Indwelling Catheter Indwelling Catheter - Exam No acute distress, much improved, currently on nasal O2, at 4 L of oxygen by nasal cannula Head exam was generally normal. There was no scleral icterus or corneal arcus. Mucous membranes were moist. HEENT examination is grossly unremarkable. Mucous membranes are moist. No oral lesions. Neck supple. Full range of motion. No adenopathy thyromegaly or neck vein distention. Cardiovascular examination reveals an regular rhythm and rate. S1-S2 normal. No S3 or S4. Systolic ejection murmur grade 3/6 heard throughout the precordium including left lateral sternal border and apex. Lungs reveal bilateral coarse rhonchi. Basilar crackles are noted. No wheezes. Breath sounds are equal bilaterally. Abdomen obese, but without tenderness. Extremities are intact. No signs or clubbing. There is 2-3+ edema. Skin is without rash or lesion. Neurologic examination is brief but nonfocal. - Labs CBC & Chem 7: 03/15/24 06:16 03/15/24 06:16 Labs: Abnormal Lab Results - Last 24 Hours (Table) 03/14/24 03/14/24 03/15/24 Range/Units 17:23 21:27 06:16 RBC 2.37 L (4.30-5.90) m/uL Hgb 7.0 L (13.0-17.5) gm/dL Hct 22.6 L (39.0-53.0) % RDW 16.6 H (11.5-15.5) % Plt Count 139 L (150-450) k/uL Lymphocytes # 0.8 L (1.0-4.8) k/uL Sodium (137-145) mmol/L Carbon Dioxide (22-30) mmol/L BUN (9-20) mg/dL Creatinine (0.66-1.25) mg/dL Glucose (74-99) mg/dL POC Glucose (mg/dL) 413 H 375 H (70-110) mg/dL Crossmatch 03/15/24 03/15/24 03/15/24 Range/Units 06:16 06:52 11:39 RBC (4.30-5.90) m/uL Hgb (13.0-17.5) gm/dL Hct (39.0-53.0) % RDW (11.5-15.5) % Plt Count (150-450) k/uL Lymphocytes # (1.0-4.8) k/uL Sodium 133 L (137-145) mmol/L Carbon Dioxide 32 H (22-30) mmol/L BUN 78 H (9-20) mg/dL Creatinine 2.68 H (0.66-1.25) mg/dL Glucose 239 H (74-99) mg/dL POC Glucose (mg/dL) 247 H 198 H (70-110) mg/dL Crossmatch 03/15/24 Range/Units 12:22 RBC (4.30-5.90) m/uL Hgb (13.0-17.5) gm/dL Hct (39.0-53.0) % RDW (11.5-15.5) % Plt Count (150-450) k/uL Lymphocytes # (1.0-4.8) k/uL Sodium (137-145) mmol/L Carbon Dioxide (22-30) mmol/L BUN (9-20) mg/dL Creatinine (0.66-1.25) mg/dL Glucose (74-99) mg/dL POC Glucose (mg/dL) (70-110) mg/dL Crossmatch See Detail Assessment and Plan Plan: Acute hypoxemic respiratory failure, secondary to CHF, in a patient with heart failure, and a preserved ejection fraction (HFPEF). The patient is currently on 4 L of oxygen by nasal cannula, no signs of any respiratory distress at rest. The patient had a recent admission to this hospital, with an episode of respiratory failure secondary to CHF, pneumonia, and atrial fibrillation/RVR, requiring cardioversion. Current rhythm is atrial fibrillation, continues to be slightly tachycardic. Meanwhile, the patient is still stable and the oxygenation and he remains on 4 L nasal cannula and there is no significant interval change in the patient's oxygenation over the past 24 hours. Acute pulmonary edema, preserved LV function and echocardiogram that was done on 03/10/2023 showed LV function, bioprosthetic aortic valve with a peak gradient of 37 mm with trace regurgitation and the patient also had a moderate degree of mitral regurgitation Acute on chronic kidney injury. Creatinine is improving and the creatinine is improving, and the patient remains on Lasix drip at the rate of 10 mg an hour, negative fluid balance Mental status change, improved and the patient is awake and alert x 3 coronary artery disease, with previous bypass surgery in 2019 along with aortic valve replacement History of renal [place], [facility] [place] [facility] [place], [place]. Maintained on Prograft 1 mg daily and prednisone 5 mg daily History of previous bypass grafting/AVR, [facility], 2019. Chronic atrial fibrillation/ A flutter with rapid ventricular response at time of admission the patient is S/P transesophageal echocardiogram, and cardioversion, February 17, 2024. Rate is controlled for now and the patient remains on amiodarone and metoprolol and the patient is also on anticoagulation with Eliquis. The patient is on amiodarone 200 mg p.o. daily, Cardizem 240 mg p.o. daily and metoprolol 25 mg p.o. 3 times daily. Chronic kidney disease. History of hypertension. COPD, from previous tobacco use. History of dyslipidemia. History of diabetes mellitus type II, Levemir 40 units BId and NovoLog 20 units with meals and SS History of gout. Obesity. History of CVA, age 42. Hyponatremia secondary to above and the patient is currently sodium levels at 134, improved Plan: Titrate oxygen to maintain saturation above 90%, currently on 4 L Keep legs elevated Continue Lasix 10 mg an hour in addition to Zaroxolyn 5 mg p.o. daily fluid balance is negative Monitor electrolytes and renal function the creatinine is improving Nephrology on the case and the patient is currently on a combination of Prograf and prednisone Continue amiodarone, Cardizem and metoprolol for rate control and the patient is anticoagulated with Eliquis, the patient remains in atrial fibrillation. Increase the metoprolol dose to 50 mg 3 times daily Rest of the medication will be kept unchanged. Will continue to follow this patient's case along with the rest of the consultants. Hemodynamically stable at this point in time.
[2024-03-15 16:40] LABS: Glucose,Whole Blood 260 mg/dL (70-110)
[2024-03-15] MEDS: METOPROLOL TARTRATE 50 MG TAB PO SCH (17:52)
[2024-03-15 18:44] LABS: Glucose,Whole Blood 320 mg/dL (70-110)
[2024-03-15 20:11] LABS: Glucose,Whole Blood 246 mg/dL (70-110)
--- NOTE | 2024-03-15 22:34 | P.PN ---
Subjective Progress Note Date: 03/15/24 HISTORY OF PRESENT ILLNESS: 68-year-old office patient with active medical history of atherosclerotic heart disease post CABG, end-stage renal disease post renal transplant at [facility] over 10 years ago, chronic stage IIIb kidney disease, hypertension, hyperlipidemia, chronic neuropathy, obesity, obstructive sleep apnea, mild peripheral arterial disease, who was back at [facility] few months ago for worsening kidney function was hospitalized for few days. He was hospitalized on 02/15/2024 with acute respiratory failure secondary to left-sided pneumonia along with combination of heart failure left-sided pneumonia and A-fib with RVR also had acute kidney injury required dialysis for a few sessions the patient finally reversed. He has done well and is being treated for CHF, COPD, left-sided pneumonia and A-fib medication and adjustment was made patient currently be debilitated require oxygen and updraft treatment on the clock presented again to [facility] rehab for almost 10 days. He still not able to be fully independent the sister decided to bring him to our office with extra help Rosalba is regarding at this point the patient developed to have acute rectal bleeding claimed to be hemorrhoid with significant blood. Anticoagulation was held late yesterday and To be on hold. Patient become extremely confused with worsening mental status and worsening mentation ended up Bring him to the emergency department at [facility] via EMS for the above problem. Was unresponsive initially but continued to have significant dyspnea and worsening confusion Limited attempted to Cintron catheter for better watching his kidney function especially with IV diuretics patient become very combative confused delusional and having worsening mental status. Finding at this point again with EKG showing supraventricular tachycardia with pulse rate of 108 looks like A-fib or a flutter at this point. CAT scan of the brain did n ot show any acute bleed, chest x-ray showed moderate to marked of CHF significant interval worsening compared to the previous study before he left the hospital last time. Laboratory value showed hemoglobin of 8.2 which is close to his baseline blood gas showed significant hypoxia with carbon dioxide retention creatinine is up to 3.46 with bun at 75 with worsening compared to before GFR is down to 17. Metabolic symptoms patient be hospitalized will be seen neurology, nephrology, pulmonary and cardiology. 03/10/2024: The patient was admitted late last night he still in the ER hold for admission he continued to have significant altered mental status with severe encephalopathy not clear also kidney function is much worse with GFR down to 70, had anemia with hemoglobin at 7 continue to have tachycardia and patient was placed on amiodarone from his last admission along with part of the dose of metoprolol and Cardizem. Also patient had severe confusion, type 2 diabetes was better controlled and is not bleeding at this point half the dose of insulin is causing hypoglycemia which will be changed currently. The patient remained on respiratory failure due to recurrent condition we will continue aggressive management continue gentle hydration progressive kidney failure at this point awaiting for nephrology consult if further decline in kidney function patient might require to go on hemodialysis. The patient mental status being awake there is no other significant or focalized problem consistent with neurological type disease with stroke or mini stroke but this is more encephalopathy related to his metabolic problem, hypoxia, hypoglycemia and other. 03/13/2024: Through the weekend patient remain on IV drip at 10 mg an hour making enough urine also remain on oral amiodarone and oral Cardizem for A-fib with RVR, continue higher flow O2. Hemoglobin remained at 7.2 did not require any transfusion BUN is up to 80 with creatinine 2.49 blood sugar remained quite bit high remain on 5 units of NovoLog AC meals plus sliding scales still on 15 units of Levemir which simply cannot be increased at this point. Continue to be watched and managed by nephrology, pulmonary and cardiology at this point patient still in the ICU currently will be transferable hopefully within the next 24 hours. 03/14/2024: He is feeling better so far Was on BiPAP for few hours overnight only, he is off vasopressor, still on IV Lasix drip at 10 mg an hour, BUN is down 73 with creatinine 2.8 slight improvement so far hemoglobin is 7.2. Still in A-fib with amiodarone and metoprolol currently and continue Cardizem CD2 140 mg daily. Blood sugar brown still fluctuating and adjustment of insulin was made which is not enough so far will go higher on Levemir to 40 units twice a day also NovoLog will be up to 20 units 3 times a day besides sliding scales. Patient started eating more expect hyperglycemia more than hypoglycemia at this point. Nephrology standpoint for still believe that acute kidney injury was secondary to cardiorenal syndrome continue to take Lasix drip patient renal function is improving gradually no sign of obstruction and the patient's creatinine baseline runs around 1.8 close to stage IIIb chronic kidney disease continue current management to help the kidney function. Apparently Zaroxolyn was added at 5 mg a day to improve diuretics effect. With the A-fib and tachycardia on metoprolol was increased up to 100 mg twice a day. 03/15/2024: He is sitting in the chair off BiPAP he is breathing a lot easier, significant improvement in kidney function compared to before, Still in the ICU still seen by pulmonary on more regular basis. Blood sugars running slightly went up will titrate medication today. Creatinine is down to 2.68 compared to 2.8 yesterday with GFR is up to 24, white blood cell still low at 3.8 hemoglobin 7 platelet count 139. With nephrology no need for dialysis at this point and hopefully patient will improve gradually just avoid any nephrotoxic agent despite that patient remain on Lasix drip at 10 mg an hour and Zaroxolyn 5 mg a day which had helped his anasarca quite bit. For the blood sugar patient is almost 2/3 of the dose he was on at home and the blood sugars are still around 200. REVIEW OF SYSTEMS: CONSTITUTIONAL: Morbid obesity and mild respiratory distress. Severely confu sed. EYES: No icterus sclerae, no conjunctivitis. EARS, NOSE, MOUTH, THROAT, and FACE: No sore throat, lymphadenopathy, carotid bruits or deformity. RESPIRATORY: Positive shortness of breath cough or wheezes. CARDIOVASCULAR: Positive PND orthopnea palpitation. GASTROINTESTINAL: No Abd pain, Nausea or vomiting, no Diarrhea or constipation, No GI Bleed, no distention or masses. GENITOURINARY: No polyuria nocturia without any hematuria. INTEGUMENT/BREAST: Negative for any muscular injury with mild osteoarthritis.. HEMATOLOGIC/LYMPHATIC: Chronic anemia with no bleeding. MUSCULOSKELTAL: Negative for Myalgia or arthralgia. NEURLOGICAL: Severe confusion with significant lack of response at this point with worsening mental status. BEHAVIORAL/PSYCH: Negative. ENDOCRINE: Negative. PHYSICAL EXAMINATION: General Appearance: Overweight in mild respiratory distress. Neck HEENT: Supple, no lymphadenopathy, no thyroid enlargement, no carotid bruits. Lungs: Decreased breath sound bilaterally especially the left side with fine rhonchi positive crackles in the bases positive mild inspiratory expiratory wheezes. Chest Wall: Decreased expansion with deep inspiration no tenderness and no deformity was found on exam, no costochondral pain or discomfort. Heart: Irregular rate and rhythm, S1, S2 positive S3 positive PVCs. Back: Symmetric, no curvature, ROM normal, no CVA tenderness. Abdomen: Soft, non-tender, bowel sounds active all four quadrants, no masses, no organomegaly. Extremities: Extremities normal, atraumatic, no cyanosis positive edema. Pulses: 2+ and symmetric. Skin: Skin color, texture, tugor normal, no rashes or lesions. Neurologic: Alert oriented severe confusion cranial nerves II through XII intact, no motor deficit, no abnormal balance or gait. ASSESSMENT AND PLAN: _Acute respiratory failure: Combination of congestive heart failure along with arrhythmia and possible bronchitis or pneumonia continue to treat underlying disease. Patient will require higher oxygen concentration might benefit from having BiPAP awaiting for pulmonary. _Severe altered mental status: Mostly metabolic encephalopathy, much better so far with significant improvement especially improving the hypoxia, fluid overl oad and hypotension. _Acute kidney injury with worsening kidney function continue current management continue to watch kidney function creatinine is improving gradually with GFR of Is up to 24. _Severe anasarca and fluid overload: Continue Lasix drip 10 mg an hour and cont inue Zaroxolyn 5 mg daily which both seem to work really well. _Congestive heart failure acute with mild exacerbation mostly resolved. Fraction congestive heart failure but still systolic dysfunction and affected by the kidney failure making it worse. _A-fib with RVR: Pulse rate was much higher remain on amiodarone 200 mg daily along with Cardizem CD 240 mg a day and metoprolol up to 100 mg twice a day, also still on anticoagulation still seeing cardiology. _Coronary artery disease post bypass surgery from 2019 has not had any chest pain or angina and even if there is a complaint so far patient is not in any condition to go for an intervention. _GI bleed mostly severe hemorrhoid not significant drop in hemoglobin at this point but still at 8.2 will consult general surgery for checking his rectal area and terminal sigmoid. _Type 2 diabetes not well-controlled noncompliance to medication has been mostly on Lantus 70 units daily along with NovoLog 35 units AC meals plus sliding sc ales coverage. Titrate insulin as needed. _End-stage renal disease posttransplant remain on antirejection drugs will consult nephrology continue mycophenolate acid along with Prograf and still on p rednisone 5 mg daily. _Hypertension: Remain on diltiazem CD 240 mg a day, metoprolol 100 mg twice a day. _Hyperlipidemia: Has been on Lipitor 40 mg a day currently medication. _BPH watch for any urinary retention. _Anticoagulation: Was on Eliquis 2.5 mg twice a day hold medication at this point with the GI bleed is better. _GI prophylaxis: Patient be on Pepcid 20 mg daily. CODE STATUS: Full code. Discussion: Remain on IV Lasix remain in ICU on BiPAP improving gradually will probably end up staying in the ICU another day. Will see if he can do limited physical therapy while is in the ICU at this point. Objective - Vital Signs Vital signs: Vital Signs Temp 98.2 F 03/15/24 04:00 Pulse 123 H 03/15/24 05:00 Resp 20 03/15/24 05:00 BP 124/70 03/15/24 05:00 Pulse Ox 96 03/15/24 05:00 FiO2 40 03/15/24 00:09 Intake & Output 03/14/24 03/14/24 03/15/24 06:59 18:59 06:59 Intake Total 240 1360 220 Output Total 1450 1575 1720 Balance -1210 -215 -1500 Weight 97.8 kg 97.8 kg 97 kg Intake: IV 20 80 120 0.9 20 80 Sodium Chloride 0.9% 1, 120 000 ml @ 20 mls/hr IV . Q24H THU Rx#:[id number] Intake, IV Titration 100 100 100 Amount Furosemide 100 mg In 100 100 100 Sodium Chloride 0.9% 90 ml @ 10 MG/HR 10 mls/hr IV .Q10H THU Rx#: [id number] Oral 120 1180 Output: Urine 1450 1575 1720 Other: Voiding Method Indwelling Catheter Indwelling Catheter Indwelling Catheter # Bowel Movements 0 - Labs CBC & Chem 7: 03/15/24 06:16 03/15/24 06:16 Labs: Abnormal Lab Results - Last 24 Hours (Table) 03/14/24 03/14/24 03/14/24 Range/Units 05:42 05:42 05:45 RBC 2.49 L (4.30-5.90) m/uL Hgb 7.2 L (13.0-17.5) gm/dL Hct 23.9 L (39.0-53.0) % MCHC 30.3 L (31.0-37.0) g/dL RDW 16.4 H (11.5-15.5) % Sodium 134 L (137-145) mmol/L BUN 73 H (9-20) mg/dL Creatinine 2.80 H (0.66-1.25) mg/dL Glucose 216 H (74-99) mg/dL POC Glucose (mg/dL) 248 H (70-110) mg/dL 03/14/24 03/14/24 03/14/24 Range/Units 11:54 17:23 21:27 RBC (4.30-5.90) m/uL Hgb (13.0-17.5) gm/dL Hct (39.0-53.0) % MCHC (31.0-37.0) g/dL RDW (11.5-15.5) % Sodium (137-145) mmol/L BUN (9-20) mg/dL Creatinine (0.66-1.25) mg/dL Glucose (74-99) mg/dL POC Glucose (mg/dL) 267 H 413 H 375 H (70-110) mg/dL
[2024-03-16 05:33] LABS: Glucose,Whole Blood 114 mg/dL (70-110)
--- NOTE | 2024-03-16 08:02 | XR ---
EXAMINATION TYPE: XR chest 1V portable DATE OF EXAM: 03/16/2024 COMPARISON: 03/13/2024 HISTORY: Shortness of breath FINDINGS: Noted is pulmonary venous congestion with scattered infiltrates. There is also cardiomegaly and small effusions. IMPRESSION: Findings compatible with congestive failure. Infiltrates of other etiology are not excluded. Clinical correlation and progress studies are recommended.
[2024-03-16 11:22] LABS: African American GFR (CKD) 30 (>60 ml/min/1.73 sqM); Anion Gap 5 mmol/L; Anisocytosis Slight; Basophils % (A) 0 %; Blood Urea Nitrogen 80 mg/dL (9-20); Calcium 8.9 mg/dL (8.4-10.2); Carbon Dioxide 32 mmol/L (22-30); Chloride 95 mmol/L (98-107); Eosinophils # (A) 0.3 k/uL (0-0.7); Eosinophils % (A) 5 %; Glucose 109 mg/dL (74-99); HCT 27.6 % (39.0-53.0); Hypochromasia Moderate; Lymphocytes # (A) 0.9 k/uL (1.0-4.8); Lymphocytes % (A) 15 %; MCH 29.4 pg (25.0-35.0); MCHC 30.7 g/dL (31.0-37.0); MCV 95.5 fL (80.0-100.0); Mean Platelet Volume 7.9; Monocytes # (A) 0.3 k/uL (0-1.0); Monocytes % (A) 5 %; Neutrophils # (A) 4.3 k/uL (1.3-7.7); Neutrophils % (A) 73 %; Non-African American GFR(CKD) 26 (>60 ml/min/1.73 sqM); Platelet Count 158 k/uL (150-450); Potassium 3.5 mmol/L (3.5-5.1); RBC 2.89 m/uL (4.30-5.90); RDW 16.4 % (11.5-15.5); Sodium 132 mmol/L (137-145); WBC 5.9 k/uL (3.8-10.6)
[2024-03-16 11:23] LABS: HGB 8.5 gm/dL (13.0-17.5)
[2024-03-16 11:30] LABS: Glucose,Whole Blood 128 mg/dL (70-110)
--- NOTE | 2024-03-16 13:42 | P.PN ---
Subjective patient is seen for follow-up for acute kidney injury and chronic kidney disease. Currently maintained on Lasix drip for volume overload along with Zaroxolyn. Urine output slightly improved to 4.3 L for 24 hours. Lower extremity swelling has improved. Respiratory status has improved as well. Serum creatinine decreased to 2.5 Objective - Vital Signs Vital signs: Vital Signs Temp 97.8 F 03/16/24 12:00 Pulse 126 H 03/16/24 12:00 Resp 18 03/16/24 12:00 BP 96/31 03/16/24 12:00 Pulse Ox 97 03/16/24 12:00 FiO2 40 03/15/24 00:09 Intake & Output 03/15/24 03/16/24 03/16/24 18:59 06:59 18:59 Intake Total 910.5 410 736 Output Total 1200 1400 Balance -289.5 -990 736 Weight 97.1 kg Intake: IV 120 Sodium Chloride 0.9% 1, 120 000 ml @ 20 mls/hr IV . Q24H THU Rx#:[id number] Intake, IV Titration 190.5 100 Amount Furosemide 100 mg In 190.5 100 Sodium Chloride 0.9% 90 ml @ 10 MG/HR 10 mls/hr IV .Q10H THU Rx#: [id number] Oral 600 736 Blood Product 310 Rc As-1 Unit 310 [id number] Output: Urine 1200 1400 Other: Voiding Method Indwelling Catheter Indwelling Catheter Indwelling Catheter # Bowel Movements 1 - Exam patient is awake, comfortable, alert oriented 3. 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 - Labs CBC & Chem 7: 03/16/24 10:14 03/16/24 10:14 Labs: Abnormal Lab Results - Last 24 Hours (Table) 03/15/24 03/15/24 03/15/24 Range/Units 12:22 16:38 18:42 RBC (4.30-5.90) m/uL Hgb (13.0-17.5) gm/dL Hct (39.0-53.0) % MCHC (31.0-37.0) g/dL RDW (11.5-15.5) % Lymphocytes # (1.0-4.8) k/uL Sodium (137-145) mmol/L Chloride (98-107) mmol/L Carbon Dioxide (22-30) mmol/L BUN (9-20) mg/dL Creatinine (0.66-1.25) mg/dL Glucose (74-99) mg/dL POC Glucose (mg/dL) 260 H 320 H (70-110) mg/dL Crossmatch See Detail 03/15/24 03/16/24 03/16/24 Range/Units 20:09 05:31 10:14 RBC 2.89 L (4.30-5.90) m/uL Hgb 8.5 L D (13.0-17.5) gm/dL Hct 27.6 L (39.0-53.0) % MCHC 30.7 L (31.0-37.0) g/dL RDW 16.4 H (11.5-15.5) % Lymphocytes # 0.9 L (1.0-4.8) k/uL Sodium (137-145) mmol/L Chloride (98-107) mmol/L Carbon Dioxide (22-30) mmol/L BUN (9-20) mg/dL Creatinine (0.66-1.25) mg/dL Glucose (74-99) mg/dL POC Glucose (mg/dL) 246 H 114 H (70-110) mg/dL Crossmatch 03/16/24 03/16/24 Range/Units 10:14 11:29 RBC (4.30-5.90) m/uL Hgb (13.0-17.5) gm/dL Hct (39.0-53.0) % MCHC (31.0-37.0) g/dL RDW (11.5-15.5) % Lymphocytes # (1.0-4.8) k/uL Sodium 132 L (137-145) mmol/L Chloride 95 L (98-107) mmol/L Carbon Dioxide 32 H (22-30) mmol/L BUN 80 H (9-20) mg/dL Creatinine 2.51 H (0.66-1.25) mg/dL Glucose 109 H (74-99) mg/dL POC Glucose (mg/dL) 128 H (70-110) mg/dL Crossmatch Microbiology - Last 24 Hours (Table) 03/10/24 12:54 Blood Culture - Final Blood Assessment and Plan Assessment: 1. Acute kidney injury secondary to cardiorenal syndrome. Currently maintained on Lasix drip. Renal function is improving. No evidence of obstruction on ultrasound. 2. CK D stage III B with baseline creatinine 1.8 to 2.0 mg/dL secondary to chronic allograft nephropathy and cardiorenal syndrome. 3. Acute hypoxic respiratory failure secondary to CHF and fluid overload 4. Volume overload 5. Acute on chronic diastolic CHF with moderate mitral regurgitation 6. Status post donor renal transplant in 2012 at [facility] maintained on tacrolimus, prednisone and Myfortic. tacrolimus level high at 9.8 on 03/11/2024. Dose has been decreased and repeat level was 6.9. This will be repeated again. 7. Hypertension with CK D stage III 8. Hypervolemic hyponatremia. Plan: continue decreased dose of Prograf. repeat level again in am Continue with Lasix drip continue Zaroxolyn 5 mg daily. Repeat labs in a.m.
--- NOTE | 2024-03-16 16:28 | P.PN ---
Subjective Progress Note Date: 03/16/24 SOB The patient is a 68-year-old gentleman with a past medical history significant for CAD status post CABG as well as history of heart failure with a preserved ejection fraction and also atrial fibrillation and valvular heart disease status post aortic valve replacement and hypertension and dyslipidemia and renal transplant as well as multiple comorbid conditions who was admitted to the hospital with acute hypoxic respiratory failure associated with change in mental status. March 11, 2024 The patient was seen and evaluated this morning. He is lethargic. He continues to be on BiPAP. The echo showed normal LV systolic function with bioprosthetic aortic valve and a peak gradient of about 20 mmHg across the valve. Currently he is on dobutamine. I am going to stop the dobutamine in the light of the patient having normal LV systolic function and beside that he is hemodynamically stable as [id number] currently he is somewhat tachycardic. He continues to be on IV diuretics. Creatinine remains elevated. the examination is remarkable for change in mental status with a stable vital signs besides tachycardia and regular rate and rhythm and systolic murmur and diminished breathing sounds bilaterally and no edema was noted in the lower extremities March 12, 2024 The patient was seen and evaluated this morning. He is mentation has improved somewhat. He remains hemodynamically stable beside being slightly tachycardic. He is on amiodarone and he is on Cardizem and beside that I am going to start the patient on small dose of beta-amy with metoprolol and uptitrate the dose if the pressure permits. He still in overt heart failure with bilateral lower extremities edema and he is still hypoxic requiring BiPAP. No symptoms of chest pain or chest discomfort. He is on oral anticoagulation. He was started on Lasix drip by the nephrology service. The examination is remarkable for regular rhythm with sinus tachycardia and diminished breathing sounds bilaterally and moderate bilateral lower extremities edema 03/13/2024 Patient is seen and examined at bedside this a.m. On telemetry patient is in sinus tachycardia, heart rate 120 bpm. Normotensive. On exam Patient still appears volume overloaded with 3+ pitting edema in bilateral lower extremity. He has elevated JVD, crackles in bilateral lung gage with poor inspiratory effort. Abdomen is nondistended. S1-S2 audible, no murmurs appreciated. 03/14/24 And is seen and examined at bedside this a.m. He is sitting in a chair comfortable position. He denies any active chest pain chest pressure. She will reports significant fatigue and shortness of breath with minimal exertion. On patient still appears volume overloaded with 2+ pitting edema in bilateral lower extremity. Swelling in lower extremities slightly better as compared to yesterday. He has had good urine output with metolazone and IV Lasix drip. He has crackles in bilateral lung gage with poor inspiratory effort, abdomen is nondistended, S1-S2 is audible, no murmurs appreciated Labs shows hemoglobin 7.2, hemoglobin is stable at 7.2. BUN 73 slightly better as compared to before, kidney function is improving creatinine 2.8 slightly better as compared to before 03/15/2024 Blood pressure 116/66, heart rate 125 bpm, sinus tachycardia. Other differential includes atrial flutter. On review of telemetry it appears likely to be sinus tachycardia. Hemoglobin 7.0, hemoglobin has trended down slowly since admission. On admission Will 8.2. BUN 78, creatinine 2.68. Creatinine is slowly improved over the last few days. On admission it was 4.1 Patient had 2 L urine output yesterday. March 16, 2024 Hemoglobin due to blood transfusion yesterday. Since then he is feeling much more awake and alert. His hemoglobin is 8.5 today. His creatinine is continue to improve. Today's creatinine is 2.5. He continues to be maintained on IV Lasix drip. Assessment Acute hypoxic respiratory failure Heart failure with a preserved ejection fraction Atrial fibrillation with RVR Acute on chronic anemia Change in mental status Renal failure and history of renal transplant Valvular heart disease as described above Multiple comorbid conditions Plan Continue IV Lasix drip and metolazone. Patient is having good urine output at this time. His kidney function is improving. Consider 1 more day of IV Lasix and metolazone. Consider switching to Lasix pushes from day after tomorrow. Currently on Eliquis 2.5. Will continue Eliquis and monitor hemoglobin. His last iron study shows that his ferritin is high with low iron binding capacity suggestive of anemia of chronic disease and CKD Increase metoprolol to 100 mg twice daily Amiodarone 200 mg daily, Eliquis 2.5 mg, aspirin 81 mg, atorvastatin 40 mg Objective - Vital Signs Vital signs: Vital Signs Temp 97.8 F 03/16/24 12:00 Pulse 126 H 03/16/24 14:00 Resp 18 03/16/24 14:00 BP 96/31 03/16/24 12:00 Pulse Ox 97 03/16/24 12:00 FiO2 40 03/15/24 00:09 Intake & Output 03/15/24 03/16/24 03/16/24 18:59 06:59 18:59 Intake Total 910.5 410 827.833 Output Total 1200 1400 1700 Balance -289.5 -990 -872.167 Weight 97.1 kg Intake: IV 120 Sodium Chloride 0.9% 1, 120 000 ml @ 20 mls/hr IV . Q24H THU Rx#:[id number] Intake, IV Titration 190.5 100 91.833 Amount Furosemide 100 mg In 190.5 100 91.833 Sodium Chloride 0.9% 90 ml @ 10 MG/HR 10 mls/hr IV .Q10H THU Rx#: [id number] Oral 600 736 Blood Product 310 Rc As-1 Unit 310 [id number] Output: Urine 1200 1400 1700 Other: Voiding Method Indwelling Catheter Indwelling Catheter Indwelling Catheter # Bowel Movements 1 - Labs CBC & Chem 7: 03/16/24 10:14 03/16/24 10:14 Labs: Abnormal Lab Results - Last 24 Hours (Table) 03/15/24 03/15/24 03/15/24 Range/Units 12:22 16:38 18:42 RBC (4.30-5.90) m/uL Hgb (13.0-17.5) gm/dL Hct (39.0-53.0) % MCHC (31.0-37.0) g/dL RDW (11.5-15.5) % Lymphocytes # (1.0-4.8) k/uL Sodium (137-145) mmol/L Chloride (98-107) mmol/L Carbon Dioxide (22-30) mmol/L BUN (9-20) mg/dL Creatinine (0.66-1.25) mg/dL Glucose (74-99) mg/dL POC Glucose (mg/dL) 260 H 320 H (70-110) mg/dL Crossmatch See Detail 03/15/24 03/16/24 03/16/24 Range/Units 20:09 05:31 10:14 RBC 2.89 L (4.30-5.90) m/uL Hgb 8.5 L D (13.0-17.5) gm/dL Hct 27.6 L (39.0-53.0) % MCHC 30.7 L (31.0-37.0) g/dL RDW 16.4 H (11.5-15.5) % Lymphocytes # 0.9 L (1.0-4.8) k/uL Sodium (137-145) mmol/L Chloride (98-107) mmol/L Carbon Dioxide (22-30) mmol/L BUN (9-20) mg/dL Creatinine (0.66-1.25) mg/dL Glucose (74-99) mg/dL POC Glucose (mg/dL) 246 H 114 H (70-110) mg/dL Crossmatch 03/16/24 03/16/24 Range/Units 10:14 11:29 RBC (4.30-5.90) m/uL Hgb (13.0-17.5) gm/dL Hct (39.0-53.0) % MCHC (31.0-37.0) g/dL RDW (11.5-15.5) % Lymphocytes # (1.0-4.8) k/uL Sodium 132 L (137-145) mmol/L Chloride 95 L (98-107) mmol/L Carbon Dioxide 32 H (22-30) mmol/L BUN 80 H (9-20) mg/dL Creatinine 2.51 H (0.66-1.25) mg/dL Glucose 109 H (74-99) mg/dL POC Glucose (mg/dL) 128 H (70-110) mg/dL Crossmatch Microbiology - Last 24 Hours (Table) 03/10/24 12:54 Blood Culture - Final Blood
[2024-03-16 16:53] LABS: Glucose,Whole Blood 273 mg/dL (70-110)
[2024-03-16] MEDS ORDERED: Potassium Replacement Protocol 1 EACH MISC MISCELLANE PRN (18:26)
[2024-03-16] MEDS: POTASSIUM CHLORIDE ER 20 MEQ TAB.ER PO SCH (18:34)
[2024-03-16] MEDS: METOPROLOL TARTRATE 50 MG TAB PO SCH (20:14)
[2024-03-16 20:17] LABS: Glucose,Whole Blood 334 mg/dL (70-110)
[2024-03-16] MEDS ORDERED: METOPROLOL TARTRATE 50 MG TAB PO SCH (21:00)
--- NOTE | 2024-03-16 23:04 | P.PN ---
Subjective Progress Note Date: 03/16/24 68-year-old male who was recently inpatient here, for an episode of CHF, pn eumonia, and atrial fibrillation with RVR. The patient was discharged from this hospital, and went to [facility]. He was discharged from [facility] on March 07. He was brought back to the hospital, by EMS, yesterday, March 09. He apparently was confused and very lethargic. He had lower extremity edema. He apparently was having difficulty breathing, and he could not be managed at home by his family, so EMS was called. The patient is seen today in the emergency department, room 5. He is currently on 3 L. He is very lethargic and somnolent. He had a blood gas showing a pO2 of 75, pCO2 of 55, pH is 7.31. His N-terminal proBNP was 7190. The patient's chest x-ray was consistent with CHF. My plan is to move the patient to the intensive care unit, start him on dobutamine, and BiPAP. He has been seen by cardiology already. On his last visit here, the patient did require a cardioversion for his atrial fibrillation, and, he received diuretics, and antibiotics. Current laboratory data includes a white count 6.62, hemoglobin 7.7, hematocrit 26.1, and a platelet count of 136,000. Sodium 139, potassium 5.2, chlorides 103, CO2 24, BUN 76, and creatinine 4.1. Glucose is 100. Calcium 9.3. Albumin is 3.3. Troponins were negative x 2. Chest x-ray is consistent with cardiomegaly, and CHF. Brain CT shows a 3.4 x 1.5 cm area in the lateral right middle cranial fossa, which is unchanged, and consistent with a previous infarct/encephalomalacia. 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 In addition, the patient has chronic vessel ischemic disease. Progress note dated March 11, 2024. 68-year-old male with a history of multiple medical problems, was seen yesterday in the emergency department. We moved him to the ICU and placed him on BiPAP, with settings of 12/5, and 40%. I also initially placed him on dobutamine at 5 mcg/kg/min. The patient is getting saline at 10 cc an hour. Off of BiPAP, he is on 4 L nasal cannula. Cardiology turned to dobutamine off given his normal ejection fraction. The patient be started on a Lasix drip at 10 mg an hour. Clinically, the patient looks better today than he did yesterday. He is much more awake and alert although his speech is a bit garbled. Current labs are good white count 6.3, hemoglobin 7.2, hematocrit 24.2, and a platelet count of 113,000. Sodium 132, potassium 4.9, chlorides 103, CO2 25, BUN 83, creatinine 3.76. Glucose is 236. Chest x-ray is improved. The patient's procalcitonin level was 0.15. The most recent N-terminal proBNP was 7190. Progress note dated March 12, 2024. 68-year-old male with a history of multiple medical problems including kidney transplantation, CABG/aortic valve replacement, pneumonia, CHF, atrial fibrillation, etc. The patient was recently inpatient here, and was discharged to a local longterm. After short period of time there, he was discharged home, but did poorly at home, and was brought back to the emergency room. Currently, he is on BiPAP, with settings of 12/5, 40%. He wore it all night. If he is not wearing BiPAP, he is on nasal O2 at between 3 to 4 L/min. The patient is getting saline at 10 cc an hour, and a Lasix drip at 10 mg an hour. White count is 5.5, hemoglobin 7.2, hematocrit 23.8, platelet count 134,000. Sodium 130, potassium 4.3, chlorides 102, CO2 25, BUN 80, creatinine 3.49. The patient's glucose is 313. Blood cultures are negative. Chest x-ray shows right lower lobe airspace opacities. There is cardiomegaly, and pulmonary vascular congestion. On 03/13/2024, the patient is being seen for a follow-up. The patient is cur rently in the intensive care unit for decompensated CHF and fluid overload. The patient is currently on 3 L of oxygen by nasal cannula. His chest x-ray still showing cardiomegaly and bilateral pleural effusion and pulmonary vessel congestion/edema. Most recent chest x-ray from this morning on 03/13/2024 and is consistent with pulmonary edema. The patient is currently off dobutamine and he is also off dopamine and the patient is currently on Lasix drip at 10 mg an hour. Urine output is adequate and the patient is in a negative fluid balance of 593 cc over the past 12 hours. His sodium is at 129, potassium is at 4.3, BUN is 78 with a creatinine of 3.05 and the patient's white cell count is 5.1 with a hemoglobin 7.2 and a platelet count of 130. He remains in atrial fibrillation. He is currently on amiodarone 200 mg p.o. daily and is also on metoprolol 25 mg p.o. 3 times daily. He remains on anticoagulation with Eliquis 2.5 mg p.o. twice a day and Cardizem CD2 40 mg p.o. daily. He remains on immunosuppression regarding his renal transplantation the patient remains on Prograf 4 mg daily and low-dose prednisone 5 mg p.o. daily. Awake and alert and communicating. No encephalopathy. On 03/14/2024, the patient is being seen for a follow-up. The patient is calm and comfortable on 40s of oxygen by nasal cannula. The patient remains on Lasix drip at 10 mg an hour. Fluid balance is -1.3 L over the past 24 hours. No significant respiratory distress. No cough or sputum production. No chest tightness or wheezing. The patient has a BUN of 73 with a creatinine of 2.8 and the renal function continues to improve. The sodium is at 134 with a potassium level of 4.1. The white cell count is at 4.8 with a hemoglobin 7.2 and a platelet count of 152. Remains on amiodarone 5 mg p.o. daily. Remains on metoprolol 25 mg p.o. 3 times daily. Remains on Cardizem to 40 mg p.o. daily. Remains on anticoagulation with Eliquis 2.5 mg p.o. twice a day. Remains on Lasix drip and Zaroxolyn was also added yesterday and the dose of 5 mg p.o. daily. Remains on immunosuppression regarding his renal transplantation. On 03/15/2024, the patient is being seen for a follow-up. This morning, the patient remains on Lasix drip at 10 mg an hour. He is producing excellent urine output and the patient's fluid balance is -2.6 L over the past 24 hours. Also on Zaroxolyn. He is on 4 L of O2 nasal cannula with a pulse ox of 95%. BUN is a 78 with a creatinine of 2.6 and a sodium levels at 133 and a potassium level is at 4.3. WBC count has 3.8 with a hemoglobin of 7 and a platelet count of 139. The patient has also been in atrial fibrillation and is currently tachycardic. He remains on metoprolol 50 mg p.o. twice a day. He is on Cardizem CD to 40 mg p.o. daily and he remains on anticoagulation with Eliquis 2.5 mg p.o. twice a day. He remains on 40 units of Levemir insulin twice a day and 20 units with meals of NovoLog. Awake and alert and communicating. No other new complaints otherwise for now. On today's evaluation of 04/02/2024, the patient is resting comfortably in bed. The patient remains on Lasix drip at 10 mg an hour. Fluid balance remains -1.2 L over the past 24 hours. The patient is calm and comfortable, still has lower extremity edema. Pulse ox 90% on 4 L of oxygen by nasal cannula. The white cell count is at 5.9 with a hemoglobin of 8.5 and a platelet count of 158. The patient was also noted to have a BUN of 80 with a creatinine of 2.51 and a sodium level of 132. Noted the patient has 30 and ongoing improvement in the renal function. Remains on anticoagulation with Eliquis 2.5 mg p.o. twice daily. Remains on amiodarone 200 mg p.o. daily. Remains on Cardizem CD to 40 mg p.o. daily metoprolol 100 mg p.o. twice a day for rate control. He does have underlying chronic atrial fibrillation. Remains on immunosuppression the patient remains on mycophenolate 720 mg p.o. twice a day and Prograf 4 mg p.o. daily and low-dose prednisone 5 mg p.o. daily. Remains on Zaroxolyn. Remains on insulin 40 units of Levemir twice a day and 20 units of NovoLog with meals. Objective - Vital Signs Vital signs: Vital Signs Temp 97.9 F 03/16/24 04:00 Pulse 120 H 03/16/24 04:00 Resp 16 03/16/24 04:00 BP 102/59 03/16/24 04:00 Pulse Ox 100 03/16/24 08:45 FiO2 40 03/15/24 00:09 Intake & Output 03/15/24 03/16/24 03/16/24 18:59 06:59 18:59 Intake Total 910.5 410 118 Output Total 1200 1400 Balance -289.5 -990 118 Weight 97.1 kg Intake: IV 120 Sodium Chloride 0.9% 1, 120 000 ml @ 20 mls/hr IV . Q24H [facility]U Rx#:[id number] Intake, IV Titration 190.5 100 Amount Furosemide 100 mg In 190.5 100 Sodium Chloride 0.9% 90 ml @ 10 MG/HR 10 mls/hr IV .Q10H [facility]U Rx#: [id number] Oral 600 118 Blood Product 310 Rc As-1 Unit 310 [id number] Output: Urine 1200 1400 Other: Voiding Method Indwelling Catheter Indwelling Catheter # Bowel Movements 1 - Exam No acute distress, much improved, currently on nasal O2, at 4 L of oxygen by nasal cannula Head exam was generally normal. There was no scleral icterus or corneal arcus. Mucous membranes were moist. HEENT examination is grossly unremarkable. Mucous membranes are moist. No oral lesions. Neck supple. Full range of motion. No adenopathy thyromegaly or neck vein distention. Cardiovascular examination reveals an regular rhythm and rate. S1-S2 normal. No S3 or S4. Systolic ejection murmur grade 3/6 heard throughout the precordium including left lateral sternal border and apex. Lungs reveal bilateral coarse rhonchi. Basilar crackles are noted. No wheezes. Breath sounds are equal bilaterally. Abdomen obese, but without tenderness. Extremities are intact. No signs or clubbing. There is 2-3+ edema. Skin is without rash or lesion. Neurologic examination is brief but nonfocal. - Labs CBC & Chem 7: 03/16/24 10:14 03/16/24 10:14 Labs: Abnormal Lab Results - Last 24 Hours (Table) 03/15/24 03/15/24 03/15/24 Range/Units 11:39 12:22 16:38 POC Glucose (mg/dL) 198 H 260 H (70-110) mg/dL Crossmatch See Detail 03/15/24 03/15/24 03/16/24 Range/Units 18:42 20:09 05:31 POC Glucose (mg/dL) 320 H 246 H 114 H (70-110) mg/dL Crossmatch Microbiology - Last 24 Hours (Table) 03/10/24 12:54 Blood Culture - Final Blood Assessment and Plan Plan: Acute hypoxemic respiratory failure, secondary to CHF, in a patient with heart failure, and a preserved ejection fraction (HFPEF). The patient is currently on 4 L of oxygen by nasal cannula, no signs of any respiratory distress at rest. The patient had a recent admission to this hospital, with an episode of respiratory failure secondary to CHF, pneumonia, and atrial fibrillation/RVR, requiring cardioversion. Current rhythm is atrial fibrillation, continues to be slightly tachycardic. Meanwhile, the patient is still stable and the ox ygenation and he remains on 4 L nasal cannula and there is no significant interval change in the patient's oxygenation over the past 24 hours. Acute pulmonary edema, preserved LV function and echocardiogram that was done on 03/10/2023 showed LV function, bioprosthetic aortic valve with a peak gradient of 37 mm with trace regurgitation and the patient also had a moderate degree of mitral regurgitation Acute on chronic kidney injury. Creatinine is improving and the creatinine is improving, and the patient remains on Lasix drip at the rate of 10 mg an hour, negative fluid balance Mental status change, improved and the patient is awake and alert x 3 coronary artery disease, with previous bypass surgery in 2019 along with aortic valve replacement History of renal transplantation, [facility], 2012. Maintained on mycophenolate 720 mg p.o. twice a day Prograft 1 mg daily and prednisone 5 mg daily History of previous bypass grafting/AVR, [facility], 2019. Chronic atrial fibrillation/ A flutter with rapid ventricular response at time of admission the patient is S/P transesophageal echocardiogram, and cardioversion, February 17, 2024. Rate is controlled for now and the patient remains on amiodarone and metoprolol and the patient is also on anticoagulation with Eliquis. The patient is on amiodarone 200 mg p.o. daily, Cardizem 240 mg p.o. daily and metoprolol 25 mg p.o. 3 times daily. Acute on top of chronic kidney disease, creatinine continues to improve and the patient is producing excellent amount of urine output. History of hypertension. COPD, from previous tobacco use. History of dyslipidemia. History of diabetes mellitus type II, Levemir 40 units BId and NovoLog 20 units with meals and SS History of gout. Obesity. History of CVA, age 42. Hyponatremia secondary to above, improved Plan: Titrate oxygen to maintain saturation above 90%, currently on 4 L Keep legs elevated Continue Lasix 10 mg an hour in addition to Zaroxolyn 5 mg p.o. daily fluid balance is negative and renal function continues to improve Monitor electrolytes and renal function the creatinine is improving Nephrology on the case and the patient is currently on a combination of Prograf and prednisone Continue amiodarone, Cardizem and metoprolol for rate control and the patient is anticoagulated with Eliquis, the patient remains in atrial fibrillation. Increase the metoprolol dose to 50 mg 3 times daily Rest of the medication will be kept unchanged. The plan is essential to continue diuresis and monitor the fluid balance, electrolytes and monitor the respiratory status. Will continue to follow this patient's case along with the rest of the consultants. Hemodynamically stable at this point in time.
--- NOTE | 2024-03-17 00:18 | P.PN ---
Subjective Progress Note Date: 03/16/24 HISTORY OF PRESENT ILLNESS: 68-year-old office patient with active medical history of atherosclerotic heart disease post CABG, end-stage renal disease post renal transplant at [facility] over 10 years ago, chronic stage IIIb kidney disease, hypertension, hyperlipidemia, chronic neuropathy, obesity, obstructive sleep apnea, mild peripheral arterial disease, who was back at [facility] few months ago for worsening kidney function was hospitalized for few days. He was hospitalized on 02/15/2024 with acute respiratory failure secondary to left-sided pneumonia along with combination of heart failure left-sided pneumonia and A-fib with RVR also had acute kidney injury required dialysis for a few sessions the patient finally reversed. He has done well and is being treated for CHF, COPD, left-sided pneumonia and A-fib medication and adjustment was made patient currently be debilitated require oxygen and updraft treatment on the clock presented again to [facility] rehab for almost 10 days. He still not able to be fully independent the sister decided to bring him to our office with extra help Rosalba is regarding at this point the patient developed to have acute rectal bleeding claimed to be hemorrhoid with significant blood. Anticoagulation was held late yesterday and To be on hold. Patient become extremely confused with worsening mental status and worsening mentation ended up Bring him to the emergency department at [facility] via EMS for the above problem. Was unresponsive initially but continued to have significant dyspnea and worsening confusion Limited attempted to Cintron catheter for better watching his kidney function especially with IV diuretics patient become very combative confused delusional and having worsening mental status. Finding at this point again with EKG showing supraventricular tachycardia with pulse rate of 108 looks like A-fib or a flutter at this point. CAT scan of the brain did n ot show any acute bleed, chest x-ray showed moderate to marked of CHF significant interval worsening compared to the previous study before he left the hospital last time. Laboratory value showed hemoglobin of 8.2 which is close to his baseline blood gas showed significant hypoxia with carbon dioxide retention creatinine is up to 3.46 with bun at 75 with worsening compared to before GFR is down to 17. Metabolic symptoms patient be hospitalized will be seen neurology, nephrology, pulmonary and cardiology. 03/10/2024: The patient was admitted late last night he still in the ER hold for admission he continued to have significant altered mental status with severe encephalopathy not clear also kidney function is much worse with GFR down to 70, had anemia with hemoglobin at 7 continue to have tachycardia and patient was placed on amiodarone from his last admission along with part of the dose of metoprolol and Cardizem. Also patient had severe confusion, type 2 diabetes was better controlled and is not bleeding at this point half the dose of insulin is causing hypoglycemia which will be changed currently. The patient remained on respiratory failure due to recurrent condition we will continue aggressive management continue gentle hydration progressive kidney failure at this point awaiting for nephrology consult if further decline in kidney function patient might require to go on hemodialysis. The patient mental status being awake there is no other significant or focalized problem consistent with neurological type disease with stroke or mini stroke but this is more encephalopathy related to his metabolic problem, hypoxia, hypoglycemia and other. 03/13/2024: Through the weekend patient remain on IV drip at 10 mg an hour making enough urine also remain on oral amiodarone and oral Cardizem for A-fib with RVR, continue higher flow O2. Hemoglobin remained at 7.2 did not require any transfusion BUN is up to 80 with creatinine 2.49 blood sugar remained quite bit high remain on 5 units of NovoLog AC meals plus sliding scales still on 15 units of Levemir which simply cannot be increased at this point. Continue to be watched and managed by nephrology, pulmonary and cardiology at this point patient still in the ICU currently will be transferable hopefully within the next 24 hours. 03/14/2024: He is feeling better so far Was on BiPAP for few hours overnight only, he is off vasopressor, still on IV Lasix drip at 10 mg an hour, BUN is down 73 with creatinine 2.8 slight improvement so far hemoglobin is 7.2. Still in A-fib with amiodarone and metoprolol currently and continue Cardizem CD2 140 mg daily. Blood sugar brown still fluctuating and adjustment of insulin was made which is not enough so far will go higher on Levemir to 40 units twice a day also NovoLog will be up to 20 units 3 times a day besides sliding scales. Patient started eating more expect hyperglycemia more than hypoglycemia at this point. Nephrology standpoint for still believe that acute kidney injury was secondary to cardiorenal syndrome continue to take Lasix drip patient renal function is improving gradually no sign of obstruction and the patient's creatinine baseline runs around 1.8 close to stage IIIb chronic kidney disease continue current management to help the kidney function. Apparently Zaroxolyn was added at 5 mg a day to improve diuretics effect. With the A-fib and tachycardia on metoprolol was increased up to 100 mg twice a day. 03/15/2024: He is sitting in the chair off BiPAP he is breathing a lot easier, significant improvement in kidney function compared to before, Still in the ICU still seen by pulmonary on more regular basis. Blood sugars running slightly went up will titrate medication today. Creatinine is down to 2.68 compared to 2.8 yesterday with GFR is up to 24, white blood cell still low at 3.8 hemoglobin 7 platelet count 139. With nephrology no need for dialysis at this point and hopefully patient will improve gradually just avoid any nephrotoxic agent despite that patient remain on Lasix drip at 10 mg an hour and Zaroxolyn 5 mg a day which had helped his anasarca quite bit. For the blood sugar patient is almost 2/3 of the dose he was on at home and the blood sugars are still around 200. 03/16/2024: Was transferred out of the ICU yesterday has been feeling slightly better is more clear mentally still comfortably in bed has not done much physical therapy, creatinine has improved significantly in the last few days. His pulse rate has improved some and remain on amiodarone 200 mg daily along with Cardizem CD 240 mg daily also still on metoprolol tartrate 100 mg twice a day. Still on Lasix IV drip 10 mg an hour which seem to diurese really well with it his edema has been much better since. Patient does not require any hemodialysis at this point, respiratory failure improved significantly. Has not done any physical therapy which we will start today as well hopefully prepare for patient moving to [facility] tomorrow or day after tomorrow. REVIEW OF SYSTEMS: CONSTITUTIONAL: Morbid obesity and mild respiratory distress. Severely confused. EYES: No icterus sclerae, no conjunctivitis. EARS, NOSE, MOUTH, THROAT, and FACE: No sore throat, lymphadenopathy, carotid bruits or deformity. RESPIRATORY: Positive shortness of breath cough or wheezes. CARDIOVASCULAR: Positive PND orthopnea palpitation. GASTROINTESTINAL: No Abd pain, Nausea or vomiting, no Diarrhea or constipation, No GI Bleed, no distention or masses. GENITOURINARY: No polyuria nocturia without any hematuria. INTEGUMENT/BREAST: Negative for any muscular injury with mild osteoarthritis.. HEMATOLOGIC/LYMPHATIC: Chronic anemia with no bleeding. MUSCULOSKELTAL: Negative for Myalgia or arthralgia. NEURLOGICAL: Severe confusion with significant lack of response at this point with worsening mental status. BEHAVIORAL/PSYCH: Negative. ENDOCRINE: Negative. PHYSICAL EXAMINATION: General Appearance: Overweight in mild respiratory distress. Neck HEENT: Supple, no lymphadenopathy, no thyroid enlargement, no carotid bruits. Lungs: Decreased breath sound bilaterally especially the left side with fine rhonchi positive crackles in the bases positive mild inspiratory expiratory wheezes. Chest Wall: Decreased expansion with deep inspiration no tenderness and no deformity was found on exam, no costochondral pain or discomfort. Heart: Irregular rate and rhythm, S1, S2 positive S3 positive PVCs. Back: Symmetric, no curvature, ROM normal, no CVA tenderness. Abdomen: Soft, non-tender, bowel sounds active all four quadrants, no masses, no organomegaly. Extremities: Extremities normal, atraumatic, no cyanosis positive edema. Pulses: 2+ and symmetric. Skin: Skin color, texture, tugor normal, no rashes or lesions. Neurologic: Alert oriented severe confusion cranial nerves II through XII i ntact, no motor deficit, no abnormal balance or gait. ASSESSMENT AND PLAN: _Acute respiratory failure: Much better so far does not require any BiPAP at this point still on O2 he is a combination of acute kidney failure, COPD, CHF, and A-fib with RVR. _Severe altered mental status: Mostly metabolic encephalopathy, much better so far with significant improvement in close his baseline. _Acute kidney injury with worsening kidney function continue current management continue to watch kidney function creatinine is improving gradually with GFR of Is up to 24. Continue hydration continue IV Lasix. _Severe anasarca and fluid overload: Continue Lasix drip 10 mg an hour and continue Zaroxolyn 5 mg daily which both seem to work really well. _Congestive heart failure acute with mild exacerbation mostly resolved. Fracti on congestive heart failure but still systolic dysfunction and affected by the kidney failure making it worse. _A-fib with RVR: Pulse rate was much higher remain on amiodarone 200 mg daily along with Cardizem CD 240 mg a day and metoprolol up to 100 mg twice a day, also still on anticoagulation still seeing cardiology. _Coronary artery disease post bypass surgery from 2019 has not had any chest pain or angina and even if there is a complaint so far patient is not in any condition to go for an intervention. _GI bleed mostly severe hemorrhoid not significant drop in hemoglobin at this point but still at 8.2 will consult general surgery for checking his rectal area and terminal sigmoid. _Type 2 diabetes not well-controlled noncompliance to medication has been mostly on Lantus 70 units daily along with NovoLog 35 units AC meals plus sliding scales coverage. Titrate insulin as needed. _End-stage renal disease posttransplant remain on antirejection drugs will consult nephrology continue mycophenolate acid along with Prograf and still on prednisone 5 mg daily. _Hypertension: Remain on diltiazem CD 240 mg a day, metoprolol 100 mg twice a day. _Hyperlipidemia: Has been on Lipitor 40 mg a day currently medication. _BPH watch for any urinary retention. _Anticoagulation: Was on Eliquis 2.5 mg twice a day hold medication at this point with the GI bleed is better. _GI prophylaxis: Patient be on Pepcid 20 mg daily. CODE STATUS: Full code. Discussion: Patient is out of the ICU, has been doing slightly better prepare hopefully for discharge to [facility] next 24 to 48 hours. Objective - Vital Signs Vital signs: Vital Signs Temp 97.9 F 03/16/24 04:00 Pulse 120 H 03/16/24 04:00 Resp 16 03/16/24 04:00 BP 102/59 03/16/24 04:00 Pulse Ox 98 03/16/24 04:00 FiO2 40 03/15/24 00:09 Intake & Output 03/15/24 03/15/24 03/16/24 06:59 18:59 06:59 Intake Total 340 910.5 410 Output Total 2820 1200 1400 Balance -2480 -289.5 -990 Weight 97 kg 97.1 kg Intake: IV 240 120 Sodium Chloride 0.9% 1, 240 120 000 ml @ 20 mls/hr IV . Q24H THU Rx#:[id number] Intake, IV Titration 100 190.5 100 Amount Furosemide 100 mg In 100 190.5 100 Sodium Chloride 0.9% 90 ml @ 10 MG/HR 10 mls/hr IV .Q10H THU Rx#: [id number] Oral 600 Blood Product 310 Rc As-1 Unit 310 [id number] Output: Urine 2820 1200 1400 Other: Voiding Method Indwelling Catheter Indwelling Catheter Indwelling Catheter - Labs CBC & Chem 7: 03/16/24 10:14 03/16/24 10:14 Labs: Abnormal Lab Results - Last 24 Hours (Table) 03/15/24 03/15/24 03/15/24 Range/Units 06:16 06:52 11:39 Sodium 133 L (137-145) mmol/L Carbon Dioxide 32 H (22-30) mmol/L BUN 78 H (9-20) mg/dL Creatinine 2.68 H (0.66-1.25) mg/dL Glucose 239 H (74-99) mg/dL POC Glucose (mg/dL) 247 H 198 H (70-110) mg/dL Crossmatch 03/15/24 03/15/24 03/15/24 Range/Units 12:22 16:38 18:42 Sodium (137-145) mmol/L Carbon Dioxide (22-30) mmol/L BUN (9-20) mg/dL Creatinine (0.66-1.25) mg/dL Glucose (74-99) mg/dL POC Glucose (mg/dL) 260 H 320 H (70-110) mg/dL Crossmatch See Detail 03/15/24 03/16/24 Range/Units 20:09 05:31 Sodium (137-145) mmol/L Carbon Dioxide (22-30) mmol/L BUN (9-20) mg/dL Creatinine (0.66-1.25) mg/dL Glucose (74-99) mg/dL POC Glucose (mg/dL) 246 H 114 H (70-110) mg/dL Crossmatch Microbiology - Last 24 Hours (Table) 03/10/24 12:54 Blood Culture - Final Blood
[2024-03-17 06:16] LABS: Glucose,Whole Blood 165 mg/dL (70-110)
[2024-03-17 10:32] LABS: ALT 21 U/L (4-49); AST 19 U/L (17-59); African American GFR (CKD) 29 (>60 ml/min/1.73 sqM); Alkaline Phosphatase 59 U/L (38-126); Anion Gap 5 mmol/L; Blood Urea Nitrogen 90 mg/dL (9-20); Calcium 8.7 mg/dL (8.4-10.2); Carbon Dioxide 33 mmol/L (22-30); Chloride 95 mmol/L (98-107); Glucose 176 mg/dL (74-99); Non-African American GFR(CKD) 25 (>60 ml/min/1.73 sqM); Potassium 3.8 mmol/L (3.5-5.1); Sodium 133 mmol/L (137-145); Total Bilirubin 0.6 mg/dL (0.2-1.3); Total Protein 5.2 g/dL (6.3-8.2)
[2024-03-17 10:34] LABS: Anisocytosis Slight; Basophils % (A) 0 %; Eosinophils # (A) 0.2 k/uL (0-0.7); Eosinophils % (A) 4 %; HCT 27.3 % (39.0-53.0); HGB 8.5 gm/dL (13.0-17.5); Hypochromasia Marked; Lymphocytes # (A) 0.8 k/uL (1.0-4.8); Lymphocytes % (A) 13 %; MCH 30.1 pg (25.0-35.0); MCHC 31.3 g/dL (31.0-37.0); MCV 96.2 fL (80.0-100.0); Macrocytosis Slight; Mean Platelet Volume 8.4; Monocytes # (A) 0.3 k/uL (0-1.0); Monocytes % (A) 5 %; Neutrophils # (A) 4.5 k/uL (1.3-7.7); Neutrophils % (A) 76 %; Platelet Count 140 k/uL (150-450); RBC 2.84 m/uL (4.30-5.90); RDW 16.3 % (11.5-15.5); WBC 5.9 k/uL (3.8-10.6)
[2024-03-17 11:55] LABS: Glucose,Whole Blood 226 mg/dL (70-110)
[2024-03-17 16:04] LABS: Glucose,Whole Blood 137 mg/dL (70-110)
--- NOTE | 2024-03-17 16:26 | P.PN ---
Subjective Progress Note Date: 03/17/24 68-year-old male who was recently inpatient here, for an episode of CHF, pn eumonia, and atrial fibrillation with RVR. The patient was discharged from this hospital, and went to [facility]. He was discharged from [facility] on March 07. He was brought back to the hospital, by EMS, yesterday, March 09. He apparently was confused and very lethargic. He had lower extremity edema. He apparently was having difficulty breathing, and he could not be managed at home by his family, so EMS was called. The patient is seen today in the emergency department, room 5. He is currently on 3 L. He is very lethargic and somnolent. He had a blood gas showing a pO2 of 75, pCO2 of 55, pH is 7.31. His N-terminal proBNP was 7190. The patient's chest x-ray was consistent with CHF. My plan is to move the patient to the intensive care unit, start him on dobutamine, and BiPAP. He has been seen by cardiology already. On his last visit here, the patient did require a cardioversion for his atrial fibrillation, and, he received diuretics, and antibiotics. Current laboratory data includes a white count 6.62, hemoglobin 7.7, hematocrit 26.1, and a platelet count of 136,000. Sodium 139, potassium 5.2, chlorides 103, CO2 24, BUN 76, and creatinine 4.1. Glucose is 100. Calcium 9.3. Albumin is 3.3. Troponins were negative x 2. Chest x-ray is consistent with cardiomegaly, and CHF. Brain CT shows a 3.4 x 1.5 cm area in the lateral right middle cranial fossa, which is unchanged, and consistent with a previous infarct/encephalomalacia. 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 In addition, the patient has chronic vessel ischemic disease. Progress note dated March 11, 2024. 68-year-old male with a history of multiple medical problems, was seen yesterday in the emergency department. We moved him to the ICU and placed him on BiPAP, with settings of 12/5, and 40%. I also initially placed him on dobutamine at 5 mcg/kg/min. The patient is getting saline at 10 cc an hour. Off of BiPAP, he is on 4 L nasal cannula. Cardiology turned to dobutamine off given his normal ejection fraction. The patient be started on a Lasix drip at 10 mg an hour. Clinically, the patient looks better today than he did yesterday. He is much more awake and alert although his speech is a bit garbled. Current labs are good white count 6.3, hemoglobin 7.2, hematocrit 24.2, and a platelet count of 113,000. Sodium 132, potassium 4.9, chlorides 103, CO2 25, BUN 83, creatinine 3.76. Glucose is 236. Chest x-ray is improved. The patient's procalcitonin level was 0.15. The most recent N-terminal proBNP was 7190. Progress note dated March 12, 2024. 68-year-old male with a history of multiple medical problems including kidney transplantation, CABG/aortic valve replacement, pneumonia, CHF, atrial fibrillation, etc. The patient was recently inpatient here, and was discharged to a local shelter. After short period of time there, he was discharged home, but did poorly at home, and was brought back to the emergency room. Currently, he is on BiPAP, with settings of 12/5, 40%. He wore it all night. If he is not wearing BiPAP, he is on nasal O2 at between 3 to 4 L/min. The patient is getting saline at 10 cc an hour, and a Lasix drip at 10 mg an hour. White count is 5.5, hemoglobin 7.2, hematocrit 23.8, platelet count 134,000. Sodium 130, potassium 4.3, chlorides 102, CO2 25, BUN 80, creatinine 3.49. The patient's glucose is 313. Blood cultures are negative. Chest x-ray shows right lower lobe airspace opacities. There is cardiomegaly, and pulmonary vascular congestion. On 03/13/2024, the patient is being seen for a follow-up. The patient is cur rently in the intensive care unit for decompensated CHF and fluid overload. The patient is currently on 3 L of oxygen by nasal cannula. His chest x-ray still showing cardiomegaly and bilateral pleural effusion and pulmonary vessel congestion/edema. Most recent chest x-ray from this morning on 03/13/2024 and is consistent with pulmonary edema. The patient is currently off dobutamine and he is also off dopamine and the patient is currently on Lasix drip at 10 mg an hour. Urine output is adequate and the patient is in a negative fluid balance of 593 cc over the past 12 hours. His sodium is at 129, potassium is at 4.3, BUN is 78 with a creatinine of 3.05 and the patient's white cell count is 5.1 with a hemoglobin 7.2 and a platelet count of 130. He remains in atrial fibrillation. He is currently on amiodarone 200 mg p.o. daily and is also on metoprolol 25 mg p.o. 3 times daily. He remains on anticoagulation with Eliquis 2.5 mg p.o. twice a day and Cardizem CD2 40 mg p.o. daily. He remains on immunosuppression regarding his renal transplantation the patient remains on Prograf 4 mg daily and low-dose prednisone 5 mg p.o. daily. Awake and alert and communicating. No encephalopathy. On 03/14/2024, the patient is being seen for a follow-up. The patient is calm and comfortable on 40s of oxygen by nasal cannula. The patient remains on Lasix drip at 10 mg an hour. Fluid balance is -1.3 L over the past 24 hours. No significant respiratory distress. No cough or sputum production. No chest tightness or wheezing. The patient has a BUN of 73 with a creatinine of 2.8 and the renal function continues to improve. The sodium is at 134 with a potassium level of 4.1. The white cell count is at 4.8 with a hemoglobin 7.2 and a platelet count of 152. Remains on amiodarone 5 mg p.o. daily. Remains on metoprolol 25 mg p.o. 3 times daily. Remains on Cardizem to 40 mg p.o. daily. Remains on anticoagulation with Eliquis 2.5 mg p.o. twice a day. Remains on Lasix drip and Zaroxolyn was also added yesterday and the dose of 5 mg p.o. daily. Remains on immunosuppression regarding his renal transplantation. On 03/15/2024, the patient is being seen for a follow-up. This morning, the patient remains on Lasix drip at 10 mg an hour. He is producing excellent urine output and the patient's fluid balance is -2.6 L over the past 24 hours. Also on Zaroxolyn. He is on 4 L of O2 nasal cannula with a pulse ox of 95%. BUN is a 78 with a creatinine of 2.6 and a sodium levels at 133 and a potassium level is at 4.3. WBC count has 3.8 with a hemoglobin of 7 and a platelet count of 139. The patient has also been in atrial fibrillation and is currently tachycardic. He remains on metoprolol 50 mg p.o. twice a day. He is on Cardizem CD to 40 mg p.o. daily and he remains on anticoagulation with Eliquis 2.5 mg p.o. twice a day. He remains on 40 units of Levemir insulin twice a day and 20 units with meals of NovoLog. Awake and alert and communicating. No other new complaints otherwise for now. On today's evaluation of 04/02/2024, the patient is resting comfortably in bed. The patient remains on Lasix drip at 10 mg an hour. Fluid balance remains -1.2 L over the past 24 hours. The patient is calm and comfortable, still has lower extremity edema. Pulse ox 90% on 4 L of oxygen by nasal cannula. The white cell count is at 5.9 with a hemoglobin of 8.5 and a platelet count of 158. The patient was also noted to have a BUN of 80 with a creatinine of 2.51 and a sodium level of 132. Noted the patient has 30 and ongoing improvement in the renal function. Remains on anticoagulation with Eliquis 2.5 mg p.o. twice daily. Remains on amiodarone 200 mg p.o. daily. Remains on Cardizem CD to 40 mg p.o. daily metoprolol 100 mg p.o. twice a day for rate control. He does have underlying chronic atrial fibrillation. Remains on immunosuppression the patient remains on mycophenolate 720 mg p.o. twice a day and Prograf 4 mg p.o. daily and low-dose prednisone 5 mg p.o. daily. Remains on Zaroxolyn. Remains on insulin 40 units of Levemir twice a day and 20 units of NovoLog with meals. 03/17/2024, seen the patient for a follow-up. The patient continues to be on IV Lasix drip 10 mg an hour. Doing well and the patient remains in negative fluid balance. Continues to have some lower extremity edema. Oxygenation is stable and the patient was weaned down to 2 L of oxygen by nasal cannula and is maintaining a pulse ox of 96%. He remains on Lasix at 10 mg an hour. Rest of the medication unchanged. He remains on Zaroxolyn 5 mg p.o. daily. His creatinine is stable today with a level of 2.55 which is essentially unchanged compared to yesterday. Sodium levels at 133 with a potassium level of 3.8, rest of the electrolytes are stable with a bicarb level of 33, WC count of 5.9 with a hemoglobin 8.5 and a platelet count of 140. Denies having any chest pain. He reports ongoing improvement. He was transferred out of the intensive care unit few days back and he is currently on the telemetry unit. Objective - Vital Signs Vital signs: Vital Signs Temp 98.1 F 03/17/24 08:00 Pulse 124 H 03/17/24 08:00 Resp 18 03/17/24 08:00 BP 110/67 03/17/24 08:00 Pulse Ox 98 03/17/24 08:00 FiO2 40 03/15/24 00:09 Intake & Output 03/16/24 03/17/24 03/17/24 18:59 06:59 18:59 Intake Total 945.352 07 7396.333 Output Total 1700 1999 2500 Balance -754.167 -1902 -1371.667 Weight 96 kg Intake: Intake, IV Titration 91.833 98 92.333 Amount Furosemide 100 mg In 91.833 98 92.333 Sodium Chloride 0.9% 90 ml @ 10 MG/HR 10 mls/hr IV .Q10H [facility] Rx#: [id number] Oral [id number] Output: Urine 1700 1999 2500 Other: Voiding Method Indwelling Catheter Indwelling Catheter Indwelling Catheter # Bowel Movements 1 1 1 - Exam No acute distress, much improved, currently on nasal O2, at 4 L of oxygen by nasal cannula Head exam was generally normal. There was no scleral icterus or corneal arcus. Mucous membranes were moist. HEENT examination is grossly unremarkable. Mucous membranes are moist. No oral lesions. Neck supple. Full range of motion. No adenopathy thyromegaly or neck vein distention. Cardiovascular examination reveals an regular rhythm and rate. S1-S2 normal. No S3 or S4. Systolic ejection murmur grade 3/6 heard throughout the p recordium including left lateral sternal border and apex. Lungs reveal bilateral coarse rhonchi. Basilar crackles are noted. No wheezes. Breath sounds are equal bilaterally. Abdomen obese, but without tenderness. Extremities are intact. No signs or clubbing. There is 2-3+ edema. Skin is without rash or lesion. Neurologic examination is brief but nonfocal. - Labs CBC & Chem 7: 03/17/24 09:55 03/17/24 09:55 Labs: Abnormal Lab Results - Last 24 Hours (Table) 03/16/24 03/16/24 03/17/24 Range/Units 16:52 20:16 06:13 RBC (4.30-5.90) m/uL Hgb (13.0-17.5) gm/dL Hct (39.0-53.0) % RDW (11.5-15.5) % Plt Count (150-450) k/uL Lymphocytes # (1.0-4.8) k/uL Sodium (137-145) mmol/L Chloride (98-107) mmol/L Carbon Dioxide (22-30) mmol/L BUN (9-20) mg/dL Creatinine (0.66-1.25) mg/dL Glucose (74-99) mg/dL POC Glucose (mg/dL) 273 H 334 H 165 H (70-110) mg/dL Total Protein (6.3-8.2) g/dL Albumin (3.5-5.0) g/dL 03/17/24 03/17/24 03/17/24 Range/Units 09:55 09:55 11:53 RBC 2.84 L (4.30-5.90) m/uL Hgb 8.5 L (13.0-17.5) gm/dL Hct 27.3 L (39.0-53.0) % RDW 16.3 H (11.5-15.5) % Plt Count 140 L (150-450) k/uL Lymphocytes # 0.8 L (1.0-4.8) k/uL Sodium 133 L (137-145) mmol/L Chloride 95 L (98-107) mmol/L Carbon Dioxide 33 H (22-30) mmol/L BUN 90 H (9-20) mg/dL Creatinine 2.55 H (0.66-1.25) mg/dL Glucose 176 H (74-99) mg/dL POC Glucose (mg/dL) 226 H (70-110) mg/dL Total Protein 5.2 L (6.3-8.2) g/dL Albumin 3.0 L (3.5-5.0) g/dL Assessment and Plan Plan: Acute hypoxemic respiratory failure, secondary to CHF, in a patient with heart failure, and a preserved ejection fraction (HFPEF). The patient is currently on 4 L of oxygen by nasal cannula, no signs of any respiratory distress at rest. The patient had a recent admission to this hospital, with an episode of respiratory failure secondary to CHF, pneumonia, and atrial fibrillation/RVR, requiring cardioversion. Current rhythm is atrial fibrillation, continues to be slightly tachycardic. Meanwhile, the patient is still stable and the oxygenation and he remains on 2 L nasal cannula and the patient oxygenation essentially improving. Acute pulmonary edema, preserved LV function and echocardiogram that was done on 03/10/2023 showed LV function, bioprosthetic aortic valve with a peak gradient of 37 mm with trace regurgitation and the patient also had a moderate degree of mitral regurgitation Acute on chronic kidney injury. Creatinine is improving and the creatinine is improving, and the patient remains on Lasix drip at the rate of 10 mg an hour, negative fluid balance Mental status change, improved and the patient is awake and alert x 3 coronary artery disease, with previous bypass surgery in 2019 along with aortic valve replacement History of renal transplantation, [facility], 2012. Maintained on mycophenolate 720 mg p.o. twice a day Prograft 1 mg daily and prednisone 5 mg daily History of previous bypass grafting/AVR, [facility], 2019. Chronic atrial fibrillation/ A flutter with rapid ventricular response at time of admission the patient is S/P transesophageal echocardiogram, and cardioversion, February 17, 2024. Rate is controlled for now and the patient remains on amiodarone and metoprolol and the patient is also on anticoagulation with Eliquis. The patient is on amiodarone 200 mg p.o. daily, Cardizem 240 mg p.o. daily and metoprolol 25 mg p.o. 3 times daily. Acute on top of chronic kidney disease, creatinine continues to improve and the patient is producing excellent amount of urine output. History of hypertension. COPD, from previous tobacco use. History of dyslipidemia. History of diabetes mellitus type II, Levemir 40 units BId and NovoLog 20 units with meals and SS History of gout. Obesity. History of CVA, age 42. Hyponatremia secondary to above, improved Plan: Titrate oxygen to maintain saturation above 90%, currently on 2 L of oxygen by nasal cannula and we should be able to further wean down FiO2 as tolerated. Keep legs elevated, leg edema is improving Continue Lasix 10 mg an hour in addition to Zaroxolyn 5 mg p.o. daily fluid balance is negative and renal function continues to improve, stable compared to yesterday Monitor electrolytes and renal function the creatinine is improving Nephrology on the case and the patient is currently on a combination of Prograf and prednisone Continue amiodarone, Cardizem and metoprolol for rate control and the patient is anticoagulated with Eliquis, the patient remains in atrial fibrillation. Increase the metoprolol dose to 50 mg 3 times daily Rest of the medication will be kept unchanged. The plan is essential to continue diuresis and monitor the fluid balance, electrolytes and monitor the respiratory status. Will continue to follow this patient's case along with the rest of the consultants. Hemodynamically stable at this point in time.
--- NOTE | 2024-03-17 18:39 | P.PN ---
Subjective Progress Note Date: 03/17/24 SOB The patient is a 68-year-old gentleman with a past medical history significant for CAD status post CABG as well as history of heart failure with a preserved ejection fraction and also atrial fibrillation and valvular heart disease status post aortic valve replacement and hypertension and dyslipidemia and renal transplant as well as multiple comorbid conditions who was admitted to the hospital with acute hypoxic respiratory failure associated with change in mental status. March 11, 2024 The patient was seen and evaluated this morning. He is lethargic. He continues to be on BiPAP. The echo showed normal LV systolic function with bioprosthetic aortic valve and a peak gradient of about 20 mmHg across the valve. Currently he is on dobutamine. I am going to stop the dobutamine in the light of the patient having normal LV systolic function and beside that he is hemodynamically stable as [id number] currently he is somewhat tachycardic. He continues to be on IV diuretics. Creatinine remains elevated. the examination is remarkable for change in mental status with a stable vital signs besides tachycardia and regular rate and rhythm and systolic murmur and diminished breathing sounds bilaterally and no edema was noted in the lower extremities March 12, 2024 The patient was seen and evaluated this morning. He is mentation has improved somewhat. He remains hemodynamically stable beside being slightly tachycardic. He is on amiodarone and he is on Cardizem and beside that I am going to start the patient on small dose of beta-amy with metoprolol and uptitrate the dose if the pressure permits. He still in overt heart failure with bilateral lower extremities edema and he is still hypoxic requiring BiPAP. No symptoms of chest pain or chest discomfort. He is on oral anticoagulation. He was started on Lasix drip by the nephrology service. The examination is remarkable for regular rhythm with sinus tachycardia and diminished breathing sounds bilaterally and moderate bilateral lower extremities edema 03/13/2024 Patient is seen and examined at bedside this a.m. On telemetry patient is in sinus tachycardia, heart rate 120 bpm. Normotensive. On exam Patient still appears volume overloaded with 3+ pitting edema in bilateral lower extremity. He has elevated JVD, crackles in bilateral lung gage with poor inspiratory effort. Abdomen is nondistended. S1-S2 audible, no murmurs appreciated. 03/14/24 And is seen and examined at bedside this a.m. He is sitting in a chair comfortable position. He denies any active chest pain chest pressure. She will reports significant fatigue and shortness of breath with minimal exertion. On patient still appears volume overloaded with 2+ pitting edema in bilateral lower extremity. Swelling in lower extremities slightly better as compared to yesterday. He has had good urine output with metolazone and IV Lasix drip. He has crackles in bilateral lung gage with poor inspiratory effort, abdomen is nondistended, S1-S2 is audible, no murmurs appreciated Labs shows hemoglobin 7.2, hemoglobin is stable at 7.2. BUN 73 slightly better as compared to before, kidney function is improving creatinine 2.8 slightly better as compared to before 03/15/2024 Blood pressure 116/66, heart rate 125 bpm, sinus tachycardia. Other differential includes atrial flutter. On review of telemetry it appears likely to be sinus tachycardia. Hemoglobin 7.0, hemoglobin has trended down slowly since admission. On admission Will 8.2. BUN 78, creatinine 2.68. Creatinine is slowly improved over the last few days. On admission it was 4.1 Patient had 2 L urine output yesterday. March 16, 2024 Hemoglobin due to blood transfusion yesterday. Since then he is feeling much more awake and alert. His hemoglobin is 8.5 today. His creatinine is continue to improve. Today's creatinine is 2.5. He continues to be maintained on IV Lasix drip. March 17, 2024 patient's hemoglobin is stable. Kidney function has stayed stable. He is currently on IV Lasix drip with good urine output. Heart rates are better controlled on higher dose of metoprolol Assessment Acute hypoxic respiratory failure Heart failure with a preserved ejection fraction Atrial fibrillation with RVR Acute on chronic anemia Change in mental status Renal failure and history of renal transplant Valvular heart disease as described above Multiple comorbid conditions Plan Continue IV Lasix drip and metolazone. Patient is having good urine output at this time. His kidney function is improving. Consider 1 more day of IV Lasix and metolazone. Consider switching to Lasix pushes from day after tomorrow. Currently on Eliquis 2.5. Will continue Eliquis and monitor hemoglobin. His last iron study shows that his ferritin is high with low iron binding capacity suggestive of anemia of chronic disease and CKD Metoprolol to 100 mg twice daily Amiodarone 200 mg daily, Eliquis 2.5 mg, aspirin 81 mg, atorvastatin 40 mg Objective - Vital Signs Vital signs: Vital Signs Temp 98.2 F 03/17/24 16:00 Pulse 84 03/17/24 16:09 Resp 18 03/17/24 16:00 BP 116/65 03/17/24 16:00 Pulse Ox 98 03/17/24 16:00 FiO2 40 03/15/24 00:09 Intake & Output 03/16/24 03/17/24 03/17/24 18:59 06:59 18:59 Intake Total 945.991 84 4022.666 Output Total 1700 2000 2500 Balance -754.167 -1902 -608.334 Weight 96 kg Intake: Intake, IV Titration 91.833 98 175.666 Amount Furosemide 100 mg In 91.833 98 175.666 Sodium Chloride 0.9% 90 ml @ 10 MG/HR 10 mls/hr IV .Q10H [facility] Rx#: [id number] Oral [id number] Output: Urine 1700 2000 2500 Other: Voiding Method Indwelling Catheter Indwelling Catheter Indwelling Catheter # Bowel Movements 1 1 1 - Labs CBC & Chem 7: 03/17/24 09:55 03/17/24 09:55 Labs: Abnormal Lab Results - Last 24 Hours (Table) 03/16/24 03/17/24 03/17/24 Range/Units 20:16 06:13 09:55 RBC 2.84 L (4.30-5.90) m/uL Hgb 8.5 L (13.0-17.5) gm/dL Hct 27.3 L (39.0-53.0) % RDW 16.3 H (11.5-15.5) % Plt Count 140 L (150-450) k/uL Lymphocytes # 0.8 L (1.0-4.8) k/uL Sodium (137-145) mmol/L Chloride (98-107) mmol/L Carbon Dioxide (22-30) mmol/L BUN (9-20) mg/dL Creatinine (0.66-1.25) mg/dL Glucose (74-99) mg/dL POC Glucose (mg/dL) 334 H 165 H (70-110) mg/dL Total Protein (6.3-8.2) g/dL Albumin (3.5-5.0) g/dL 03/17/24 03/17/24 03/17/24 Range/Units 09:55 11:53 16:02 RBC (4.30-5.90) m/uL Hgb (13.0-17.5) gm/dL Hct (39.0-53.0) % RDW (11.5-15.5) % Plt Count (150-450) k/uL Lymphocytes # (1.0-4.8) k/uL Sodium 133 L (137-145) mmol/L Chloride 95 L (98-107) mmol/L Carbon Dioxide 33 H (22-30) mmol/L BUN 90 H (9-20) mg/dL Creatinine 2.55 H (0.66-1.25) mg/dL Glucose 176 H (74-99) mg/dL POC Glucose (mg/dL) 226 H 137 H (70-110) mg/dL Total Protein 5.2 L (6.3-8.2) g/dL Albumin 3.0 L (3.5-5.0) g/dL
--- NOTE | 2024-03-17 18:42 | P.PN ---
Subjective patient is seen for follow-up for acute kidney injury and chronic kidney disease. Currently maintained on Lasix drip for volume overload along with Zaroxolyn. Urine output slightly improved to 3.7 L for 24 hours. Lower extremity swelling has improved. Respiratory status has improved as well. Serum creatinine decreased to 2.5 Objective - Vital Signs Vital signs: Vital Signs Temp 98.2 F 03/17/24 16:00 Pulse 84 03/17/24 16:09 Resp 18 03/17/24 16:00 BP 116/65 03/17/24 16:00 Pulse Ox 98 03/17/24 16:00 FiO2 40 03/15/24 00:09 Intake & Output 03/16/24 03/17/24 03/17/24 18:59 06:59 18:59 Intake Total 945.857 02 2549.666 Output Total 1700 2000 2500 Balance -754.167 -1902 -608.334 Weight 96 kg Intake: Intake, IV Titration 91.833 98 175.666 Amount Furosemide 100 mg In 91.833 98 175.666 Sodium Chloride 0.9% 90 ml @ 10 MG/HR 10 mls/hr IV .Q10H [facility] Rx#: [id number] Oral 854 1716 Output: Urine 1700 1999 2500 Other: Voiding Method Indwelling Catheter Indwelling Catheter Indwelling Catheter # Bowel Movements 1 1 1 - Exam patient is awake, comfortable, alert oriented 3. Examination of the heart S1 and S2 Examination of the lungs bilateral breath sounds are heard Abdomen is soft obese Examination lower extremity shows edema 2+ bilaterally, improved. LINE SERVICER exam grossly intact - Labs CBC & Chem 7: 03/17/24 09:55 03/17/24 09:55 Labs: Abnormal Lab Results - Last 24 Hours (Table) 03/16/24 03/17/24 03/17/24 Range/Units 20:16 06:13 09:55 RBC 2.84 L (4.30-5.90) m/uL Hgb 8.5 L (13.0-17.5) gm/dL Hct 27.3 L (39.0-53.0) % RDW 16.3 H (11.5-15.5) % Plt Count 140 L (150-450) k/uL Lymphocytes # 0.8 L (1.0-4.8) k/uL Sodium (137-145) mmol/L Chloride (98-107) mmol/L Carbon Dioxide (22-30) mmol/L BUN (9-20) mg/dL Creatinine (0.66-1.25) mg/dL Glucose (74-99) mg/dL POC Glucose (mg/dL) 334 H 165 H (70-110) mg/dL Total Protein (6.3-8.2) g/dL Albumin (3.5-5.0) g/dL 03/17/24 03/17/24 03/17/24 Range/Units 09:55 11:53 16:02 RBC (4.30-5.90) m/uL Hgb (13.0-17.5) gm/dL Hct (39.0-53.0) % RDW (11.5-15.5) % Plt Count (150-450) k/uL Lymphocytes # (1.0-4.8) k/uL Sodium 133 L (137-145) mmol/L Chloride 95 L (98-107) mmol/L Carbon Dioxide 33 H (22-30) mmol/L BUN 90 H (9-20) mg/dL Creatinine 2.55 H (0.66-1.25) mg/dL Glucose 176 H (74-99) mg/dL POC Glucose (mg/dL) 226 H 137 H (70-110) mg/dL Total Protein 5.2 L (6.3-8.2) g/dL Albumin 3.0 L (3.5-5.0) g/dL Assessment and Plan Assessment: 1. Acute kidney injury secondary to cardiorenal syndrome. Currently maintained on Lasix drip. Renal function is improving. No evidence of obstruction on ultrasound. 2. CK D stage III B with baseline creatinine 1.8 to 2.0 mg/dL secondary to chronic allograft nephropathy and cardiorenal syndrome. 3. Acute hypoxic respiratory failure secondary to CHF and fluid overload 4. Volume overload 5. Acute on chronic diastolic CHF with moderate mitral regurgitation 6. Status post donor renal transplant in 2012 at [facility] maintained on tacrolimus, prednisone and Myfortic. tacrolimus level high at 9.8 on 03/11/2024. Dose has been decreased and repeat level was 6.9. This was repeated again yesterday. 7. Hypertension with CK D stage III 8. Hypervolemic hyponatremia. Plan: continue decreased dose of Prograf. Follow-up on repeat tacrolimus level. Changed to IV push Lasix starting in a.m. continue Zaroxolyn 5 mg daily. Repeat labs in a.m.
[2024-03-17] MEDS ORDERED: FUROSEMIDE 10 MG/ML 10 ML VIAL IV SCH (18:45)
[2024-03-17 19:59] LABS: Glucose,Whole Blood 178 mg/dL (70-110)
[2024-03-17] MEDS: FUROSEMIDE 10 MG/ML 10 ML VIAL IV SCH (20:23)
[2024-03-18 06:08] LABS: Glucose,Whole Blood 283 mg/dL (70-110)
--- NOTE | 2024-03-18 09:49 | P.PN ---
Subjective Progress Note Date: 03/17/24 HISTORY OF PRESENT ILLNESS: 68-year-old office patient with active medical history of atherosclerotic heart disease post CABG, end-stage renal disease post renal transplant at [facility] over 10 years ago, chronic stage IIIb kidney disease, hypertension, hyperlipidemia, chronic neuropathy, obesity, obstructive sleep apnea, mild peripheral arterial disease, who was back at [facility] few months ago for worsening kidney function was hospitalized for few days. He was hospitalized on 02/15/2024 with acute respiratory failure secondary to left-sided pneumonia along with combination of heart failure left-sided pneumonia and A-fib with RVR also had acute kidney injury required dialysis for a few sessions the patient finally reversed. He has done well and is being treated for CHF, COPD, left-sided pneumonia and A-fib medication and adjustment was made patient currently be debilitated require oxygen and updraft treatment on the clock presented again to [facility] rehab for almost 10 days. He still not able to be fully independent the sister decided to bring him to our office with extra help Rosalba is regarding at this point the patient developed to have acute rectal bleeding claimed to be hemorrhoid with significant blood. Anticoagulation was held late yesterday and To be on hold. Patient become extremely confused with worsening mental status and worsening mentation ended up Bring him to the emergency department at [facility] via EMS for the above problem. Was unresponsive initially but continued to have significant dyspnea and worsening confusion Limited attempted to Cintron catheter for better watching his kidney function especially with IV diuretics patient become very combative confused delusional and having worsening mental status. Finding at this point again with EKG showing supraventricular tachycardia with pulse rate of 108 looks like A-fib or a flutter at this point. CAT scan of the brain did n ot show any acute bleed, chest x-ray showed moderate to marked of CHF significant interval worsening compared to the previous study before he left the hospital last time. Laboratory value showed hemoglobin of 8.2 which is close to his baseline blood gas showed significant hypoxia with carbon dioxide retention creatinine is up to 3.46 with bun at 75 with worsening compared to before GFR is down to 17. Metabolic symptoms patient be hospitalized will be seen neurology, nephrology, pulmonary and cardiology. 03/10/2024: The patient was admitted late last night he still in the ER hold for admission he continued to have significant altered mental status with severe encephalopathy not clear also kidney function is much worse with GFR down to 70, had anemia with hemoglobin at 7 continue to have tachycardia and patient was placed on amiodarone from his last admission along with part of the dose of metoprolol and Cardizem. Also patient had severe confusion, type 2 diabetes was better controlled and is not bleeding at this point half the dose of insulin is causing hypoglycemia which will be changed currently. The patient remained on respiratory failure due to recurrent condition we will continue aggressive management continue gentle hydration progressive kidney failure at this point awaiting for nephrology consult if further decline in kidney function patient might require to go on hemodialysis. The patient mental status being awake there is no other significant or focalized problem consistent with neurological type disease with stroke or mini stroke but this is more encephalopathy related to his metabolic problem, hypoxia, hypoglycemia and other. 03/13/2024: Through the weekend patient remain on IV drip at 10 mg an hour making enough urine also remain on oral amiodarone and oral Cardizem for A-fib with RVR, continue higher flow O2. Hemoglobin remained at 7.2 did not require any transfusion BUN is up to 80 with creatinine 2.49 blood sugar remained quite bit high remain on 5 units of NovoLog AC meals plus sliding scales still on 15 units of Levemir which simply cannot be increased at this point. Continue to be watched and managed by nephrology, pulmonary and cardiology at this point patient still in the ICU currently will be transferable hopefully within the next 24 hours. 03/14/2024: He is feeling better so far Was on BiPAP for few hours overnight only, he is off vasopressor, still on IV Lasix drip at 10 mg an hour, BUN is down 73 with creatinine 2.8 slight improvement so far hemoglobin is 7.2. Still in A-fib with amiodarone and metoprolol currently and continue Cardizem CD2 140 mg daily. Blood sugar brown still fluctuating and adjustment of insulin was made which is not enough so far will go higher on Levemir to 40 units twice a day also NovoLog will be up to 20 units 3 times a day besides sliding scales. Patient started eating more expect hyperglycemia more than hypoglycemia at this point. Nephrology standpoint for still believe that acute kidney injury was secondary to cardiorenal syndrome continue to take Lasix drip patient renal function is improving gradually no sign of obstruction and the patient's creatinine baseline runs around 1.8 close to stage IIIb chronic kidney disease continue current management to help the kidney function. Apparently Zaroxolyn was added at 5 mg a day to improve diuretics effect. With the A-fib and tachycardia on metoprolol was increased up to 100 mg twice a day. 03/15/2024: He is sitting in the chair off BiPAP he is breathing a lot easier, significant improvement in kidney function compared to before, Still in the ICU still seen by pulmonary on more regular basis. Blood sugars running slightly went up will titrate medication today. Creatinine is down to 2.68 compared to 2.8 yesterday with GFR is up to 24, white blood cell still low at 3.8 hemoglobin 7 platelet count 139. With nephrology no need for dialysis at this point and hopefully patient will improve gradually just avoid any nephrotoxic agent despite that patient remain on Lasix drip at 10 mg an hour and Zaroxolyn 5 mg a day which had helped his anasarca quite bit. For the blood sugar patient is almost 2/3 of the dose he was on at home and the blood sugars are still around 200. 03/16/2024: Was transferred out of the ICU yesterday has been feeling slightly better is more clear mentally still comfortably in bed has not done much physical therapy, creatinine has improved significantly in the last few days. His pulse rate has improved some and remain on amiodarone 200 mg daily along with Cardizem CD 240 mg daily also still on metoprolol tartrate 100 mg twice a day. Still on Lasix IV drip 10 mg an hour which seem to diurese really well with it his edema has been much better since. Patient does not require any hemodialysis at this point, respiratory failure improved significantly. Has not done any physical therapy which we will start today as well hopefully prepare for patient moving to [facility] tomorrow or day after tomorrow. 03/17/2024: Still on Lasix drip 10 mg an hour and still on Zaroxolyn 5 mg daily which had helped his fluid overload requirement his kidney function level at 2.55 creatinine so far not improving from [facility]. His mobility has improved some according to physical therapy but patient is not stable. I had long discussion with the niece who is the guardian they have concerned about him going back home and not going to SNF but apparently patient did not qualify for SNF because he was able to walk independently more than expected. The largest picture although he is medically not stable and still have a lot of comorbidity and not safe being home by himself. Also the niece expressed that patient apparently has been having delusion and hallucination seeing people in the room and children walking around his bed all the time. Will request neurology to evaluate the patient again today he was evaluated early and all his symptoms were at the time more metabolic based with the severity of his hypoxia and kidney failure causing problem. REVIEW OF SYSTEMS: CONSTITUTIONAL: Morbid obesity and mild respiratory distress. Severely confused. EYES: No icterus sclerae, no conjunctivitis. EARS, NOSE, MOUTH, THROAT, and FACE: No sore throat, lymphadenopathy, carotid bruits or deformity. RESPIRATORY: Positive shortness of breath cough or wheezes. CARDIOVASCULAR: Positive PND orthopnea palpitation. GASTROINTESTINAL: No Abd pain, Nausea or vomiting, no Diarrhea or constipation, No GI Bleed, no distention or masses. GENITOURINARY: No polyuria nocturia without any hematuria. INTEGUMENT/BREAST: Negative for any muscular injury with mild osteoarthritis.. HEMATOLOGIC/LYMPHATIC: Chronic anemia with no bleeding. MUSCULOSKELTAL: Negative for Myalgia or arthralgia. NEURLOGICAL: Severe confusion with significant lack of response at this point with worsening mental status. BEHAVIORAL/PSYCH: Negative. ENDOCRINE: Negative. PHYSICAL EXAMINATION: General Appearance: Overweight in mild respiratory distress. Neck HEENT: Supple, no lymphadenopathy, no thyroid enlargement, no carotid bruits. Lungs: Decreased breath sound bilaterally especially the left side with fine rhonchi positive crackles in the bases positive mild inspiratory expiratory wheezes. Chest Wall: Decreased expansion with deep inspiration no tenderness and no deformity was found on exam, no costochondral pain or discomfort. Heart: Irregular rate and rhythm, S1, S2 positive S3 positive PVCs. Back: Symmetric, no curvature, ROM normal, no CVA tenderness. Abdomen: Soft, non-tender, bowel sounds active all four quadrants, no masses, no organomegaly. Extremities: Extremities normal, atraumatic, no cyanosis positive edema. Pulses: 2+ and symmetric. Skin: Skin color, texture, tugor normal, no rashes or lesions. Neurologic: Alert oriented severe confusion cranial nerves II through XII intact, no motor deficit, no abnormal balance or gait. ASSESSMENT AND PLAN: _Acute respiratory failure: Patient does not have any need to use BiPAP last night but he is still having quite with apnea with his sleep apnea and he will require CPAP on the long run in the meanwhile still on 2 to 3 L of oxygen to keep his pulse ox above 90 percentile. _Altered mental status: Apparently has been having more delusion hallucination he is afraid of sharing it with us by restarting his niece about seeing children walking around his bed. Will request neurology for further evaluation at this point his symptoms still can be more hypoxia, more related to his kidney injury and all the metabolic change but should exclude any other possibility for either neuro or psych. _Acute kidney injury with worsening kidney function continue current management continue to watch kidney function creatinine is improving gradually with GFR of Is up to 24. Creatinine still around 2.55 continue hydration continue IV Lasix 10 mg an hour still on Zaroxolyn 5 mg a day. _Severe anasarca and fluid overload: Continue Lasix drip 10 mg an hour and continue Zaroxolyn 5 mg daily which both seem to work really well. _Congestive heart failure acute with mild exacerbation mostly resolved. Fraction congestive heart failure but still systolic dysfunction and affected by the kidney failure making it worse. _A-fib with RVR: Pulse rate was much higher remain on amiodarone 200 mg daily along with Cardizem CD 240 mg a day and metoprolol up to 100 mg twice a day, pulse rate is better at this point still on anticoagulation. _Coronary artery disease post bypass surgery from 2019 has not had any chest pain or angina and even if there is a complaint so far patient is not in any condition to go for an intervention. _GI bleed mostly severe hemorrhoid not significant drop in hemoglobin at this point but still at 8.2 will consult general surgery for checking his rectal area and terminal sigmoid. _Type 2 diabetes not well-controlled noncompliance to medication has been mostly on Lantus 70 units daily along with NovoLog 35 units AC meals plus sliding scales coverage. Titrate insulin as needed. _End-stage renal disease posttransplant remain on antirejection drugs will consult nephrology continue mycophenolate acid along with Prograf and still on prednisone 5 mg daily. With slightly worsening kidney function at this point with plateau with creatinine around 2.55. _Hypertension: Remain on diltiazem CD 240 mg a day, metoprolol 100 mg twice a day. _Hyperlipidemia: Has been on Lipitor 40 mg a day currently medication. _BPH watch for any urinary retention. _Anticoagulation: Was on Eliquis 2.5 mg twice a day hold medication at this point with the GI bleed is better. _GI prophylaxis: Patient be on Pepcid 20 mg daily. CODE STATUS: Full code. Discussion: Patient is on regular floor did not require any BiPAP but has been having more delusion and hallucination, even he passes physical therapy schedule did not require any SNF patient is not safe to go home or require more nursing care facility help including dispensing medication, watching his oxygen level, requiring oxygen possibly still may need to use BiPAP or CPAP at night. Objective - Vital Signs Vital signs: Vital Signs Temp 98.2 F 03/16/24 20:00 Pulse 122 H 03/17/24 00:00 Resp 18 03/17/24 02:00 BP 122/62 03/17/24 00:00 Pulse Ox 96 03/17/24 00:00 FiO2 40 03/15/24 00:09 Intake & Output 03/16/24 03/16/24 03/17/24 06:59 18:59 06:59 Intake Total 410 945.833 98 Output Total 1400 1700 1999 Balance -990 -754.179 -1902 Weight 97.1 kg Intake: Intake, IV Titration 100 91.833 98 Amount Furosemide 100 mg In 100 91.833 98 Sodium Chloride 0.9% 90 ml @ 10 MG/HR 10 mls/hr IV .Q10H [facility] Rx#: [id number] Oral 854 Blood Product 310 Rc As-1 Unit 310 [id number] Output: Urine 1400 1700 1999 Other: Voiding Method Indwelling Catheter Indwelling Catheter Indwelling Catheter # Bowel Movements 1 1 - Labs CBC & Chem 7: 03/17/24 09:55 03/17/24 09:55 Labs: Abnormal Lab Results - Last 24 Hours (Table) 03/16/24 03/16/24 03/16/24 Range/Units 10:14 10:14 11:29 RBC 2.89 L (4.30-5.90) m/uL Hgb 8.5 L D (13.0-17.5) gm/dL Hct 27.6 L (39.0-53.0) % MCHC 30.7 L (31.0-37.0) g/dL RDW 16.4 H (11.5-15.5) % Lymphocytes # 0.9 L (1.0-4.8) k/uL Sodium 132 L (137-145) mmol/L Chloride 95 L (98-107) mmol/L Carbon Dioxide 32 H (22-30) mmol/L BUN 80 H (9-20) mg/dL Creatinine 2.51 H (0.66-1.25) mg/dL Glucose 109 H (74-99) mg/dL POC Glucose (mg/dL) 128 H (70-110) mg/dL 03/16/24 03/16/24 Range/Units 16:52 20:16 RBC (4.30-5.90) m/uL Hgb (13.0-17.5) gm/dL Hct (39.0-53.0) % MCHC (31.0-37.0) g/dL RDW (11.5-15.5) % Lymphocytes # (1.0-4.8) k/uL Sodium (137-145) mmol/L Chloride (98-107) mmol/L Carbon Dioxide (22-30) mmol/L BUN (9-20) mg/dL Creatinine (0.66-1.25) mg/dL Glucose (74-99) mg/dL POC Glucose (mg/dL) 273 H 334 H (70-110) mg/dL
--- NOTE | 2024-03-18 11:40 | P.PN ---
Subjective Progress Note Date: 03/18/24 The patient is a 68-year-old male who is seen in neurologic consultation on March 18, 2024, in collaboration with Michaela Clifton, via teleneurology. The patient has been seen in neurologic consultation, on this admission-March 10, 2024. At the time of that evaluation, patient was determined to be having altered mental status secondary to toxic metabolic encephalopathy. After several days, the patient's mental status cleared. He was noted to be alert and oriented x 3. He was no longer confused. Neurology signed off. Apparently last night, the patient's niece spoke with the patient via telephone. He reportedly was "hearing children and running in the hallways". The patient's niece reported concern that the patient seems to become more confused and hallucinating during the nighttime. Neurology was thus asked to reevaluate the patient. The patient himself does not feel as if he is confused. He reports that he is able to take care of all of his own needs, at home. He states that he pays the bills and does the cooking. He reports being able to walk to the basement. He says he is still driving. He denies getting lost in his own neighborhood. Objective - Vital Signs Vital signs: Vital Signs Temp 97.9 F 03/18/24 04:00 Pulse 122 H 03/18/24 04:00 Resp 16 03/18/24 04:00 BP 115/64 03/18/24 04:00 Pulse Ox 98 03/18/24 04:00 FiO2 40 03/15/24 00:09 Intake & Output 03/17/24 03/18/24 03/18/24 18:59 06:59 18:59 Intake Total 1891.666 Output Total 2500 3000 Balance -608.334 -3000 Weight 68.7 kg Intake: Intake, IV Titration 175.666 Amount Furosemide 100 mg In 175.666 Sodium Chloride 0.9% 90 ml @ 10 MG/HR 10 mls/hr IV .Q10H [facility] Rx#: [id number] Oral 1716 Output: Urine 2500 3000 Other: Voiding Method Indwelling Catheter Indwelling Catheter # Bowel Movements 1 - Exam General: Patient is well-nourished, well-developed and in no acute distress. HEENT: Head is atraumatic, normocephalic. Fundus not visualized. There is no scleral icterus. Mucous membranes are slightly dry. Neck: Supple without carotid bruits Heart: Regular rate and rhythm Lungs: Clear to auscultation Extremities: There is edema of the feet bilaterally. Neurological examination Mental status: Patient is awake, alert and oriented x 3. He is able to state his name, date of , age current year, location. There is no record of confusion. The patient is able to accurately follow two-step commands. The patient's speech is fluent. Cranial nerves: Pupils are equal at 2 mm and reactive. Visual gage are full to confrontation. Extraocular movements are intact. There is no nystagmus. Facial sensation is intact. There is no facial asymmetry. Hearing is diminished. Uvula and palate are midline. Shoulder shrug is symmetric. Tongue protrudes midline. Motor: Strength (right/left)-[employer] 4/5, triceps 4/5, biceps 5/5, hip flexors 5/5 Sensation: Grossly intact to light touch throughout. There is no extinction with double simultaneous stimulation. Coordination: Yqieqn-ozuo-yqtimy testing is intact. Rapid alternating movements and claf-iy-aset testing are intact. Deep tendon reflexes: Absent throughout Gait: Not assessed - Labs CBC & Chem 7: 03/17/24 09:55 03/17/24 09:55 Labs: Abnormal Lab Results - Last 24 Hours (Table) 03/17/24 03/17/24 03/17/24 Range/Units 09:55 09:55 11:53 RBC 2.84 L (4.30-5.90) m/uL Hgb 8.5 L (13.0-17.5) gm/dL Hct 27.3 L (39.0-53.0) % RDW 16.3 H (11.5-15.5) % Plt Count 140 L (150-450) k/uL Lymphocytes # 0.8 L (1.0-4.8) k/uL Sodium 133 L (137-145) mmol/L Chloride 95 L (98-107) mmol/L Carbon Dioxide 33 H (22-30) mmol/L BUN 90 H (9-20) mg/dL Creatinine 2.55 H (0.66-1.25) mg/dL Glucose 176 H (74-99) mg/dL POC Glucose (mg/dL) 226 H (70-110) mg/dL Total Protein 5.2 L (6.3-8.2) g/dL Albumin 3.0 L (3.5-5.0) g/dL 03/17/24 03/17/24 03/18/24 Range/Units 16:02 19:57 06:07 RBC (4.30-5.90) m/uL Hgb (13.0-17.5) gm/dL Hct (39.0-53.0) % RDW (11.5-15.5) % Plt Count (150-450) k/uL Lymphocytes # (1.0-4.8) k/uL Sodium (137-145) mmol/L Chloride (98-107) mmol/L Carbon Dioxide (22-30) mmol/L BUN (9-20) mg/dL Creatinine (0.66-1.25) mg/dL Glucose (74-99) mg/dL POC Glucose (mg/dL) 137 H 178 H 283 H (70-110) mg/dL Total Protein (6.3-8.2) g/dL Albumin (3.5-5.0) g/dL Assessment and Plan Assessment: This is a 68-year-old gentleman who presents because shortness of breath, blood in the stool and arrhythmia. Neurology is asked to reevaluate the patient for altered mental status. At the time of this evaluation, the patient is fully oriented. There is no evidence of confusion. The patient is able to follow multistep commands without difficulty. Altered Mental status seems due to Metabolic encephalopathy-resolved Hypoglycemia as low as 49 Acute on chronic kidney insufficiency Short of breath Hypoxia History of previous stroke over the right temporal cerebellar. Diabetes mellitus History of CABG Congestive heart failure History of aortic valve replacement History of paroxysmal atrial fibrillation on Eliquis History of end-stage renal disease status post renal transplant about 10 years ago Hypertension Hyperlipidemia History of peripheral arterial disease History of chronic neck issues, with right hand weakness, going on for year (not new finding). Patient follows up with Dr. Guerra Plan: 1. Continue supportive care 2. Continue treatment for acute on chronic renal failure 3. If full neuropsychological testing is requested, this should be done as an outpatient. Patient/family should be advised to follow-up with an outpatient neurologist for further evaluation and workup. No further neurologic intervention is needed at this time. Neurology will sign off. Please call with questions or concerns. Time with Patient: Greater than 30 (45 minutes were spent evaluating this patient today including, obtaining history, examining the patient, reviewing imaging, chart documentation, labs, placing orders and creating this note)
[2024-03-18 12:04] LABS: Glucose,Whole Blood 162 mg/dL (70-110)
--- NOTE | 2024-03-18 13:38 | P.PN ---
Subjective Progress Note Date: 03/18/24 68-year-old office patient with active medical history of atherosclerotic heart disease post CABG, end-stage renal disease post renal transplant at [facility] over 10 years ago, chronic stage IIIb kidney disease, hypertension, hyperlipidemia, chronic neuropathy, obesity, obstructive sleep apnea, mild peripheral arterial disease, who was back at [facility] few months ago for worsening kidney function was hospitalized for few days. He was hospitalized on 02/15/2024 with acute respiratory failure secondary to left-sided pneumonia along with combination of heart failure left-sided pneumonia and A-fib with RVR also had acute kidney injury required dialysis for a few sessions the patient finally reversed. He has done well and is being treated for CHF, COPD, left-sided pneumonia and A-fib medication and adjustment was made patient currently be debilitated require oxygen and updraft treatment on the clock presented again to [facility] rehab for almost 10 days. He still not able to be fully independent the sister decided to bring him to our office with extra help Rosalba is regarding at this point the patient developed to have acute rectal bleeding claimed to be hemorrhoid with significant blood. Anticoagulation was held late yesterday and To be on hold. Patient become extremely confused with worsening mental status and worsening mentation ended up Bring him to the emergency department at [facility] via EMS for the above problem. Was unresponsive initially but continued to have significant dyspnea and worsening confusion Limited attempted to Cintron catheter for better watching his kidney function especially with IV diuretics patient become very combative confused delusional and having worsening mental status. Finding at this point again with EKG showing supraventricular tachycardia with pulse rate of 108 looks like A-fib or a flutter at this point. CAT scan of the brain did not show any acute bleed, chest x-ray showed moderate to marked of CHF significant interval worsening compared to the previous study before he left the hospital last time. Laboratory value showed hemoglobin of 8.2 which is close to his baseline blood gas showed significant hypoxia with carbon dioxide retention creatinine is up to 3.46 with bun at 75 with worsening compared to before GFR is down to 17. Metabolic symptoms patient be hospitalized will be seen neurology, nephrology, pulmonary and cardiology. 03/10/2024: The patient was admitted late last night he still in the ER hold for admission he continued to have significant altered mental status with severe encephalopathy not clear also kidney function is much worse with GFR down to 70, had anemia with hemoglobin at 7 continue to have tachycardia and patient was placed on amiodarone from his last admission along with part of the dose of metoprolol and Cardizem. Also patient had severe confusion, type 2 diabetes was better controlled and is not bleeding at this point half the dose of insulin is causing hypoglycemia which will be changed currently. The patient remained on r espiratory failure due to recurrent condition we will continue aggressive management continue gentle hydration progressive kidney failure at this point awaiting for nephrology consult if further decline in kidney function patient might require to go on hemodialysis. The patient mental status being awake there is no other significant or focalized problem consistent with neurological type disease with stroke or mini stroke but this is more encephalopathy related to his metabolic problem, hypoxia, hypoglycemia and other. 03/13/2024: Through the weekend patient remain on IV drip at 10 mg an hour making enough urine also remain on oral amiodarone and oral Cardizem for A-fib with RVR, continue higher flow O2. Hemoglobin remained at 7.2 did not require any transfusion BUN is up to 80 with creatinine 2.49 blood sugar remained quite bit high remain on 5 units of NovoLog AC meals plus sliding scales still on 15 units of Levemir which simply cannot be increased at this point. Continue to be emmie ched and managed by nephrology, pulmonary and cardiology at this point patient still in the ICU currently will be transferable hopefully within the next 24 hours. 03/14/2024: He is feeling better so far Was on BiPAP for few hours overnight only, he is off vasopressor, still on IV Lasix drip at 10 mg an hour, BUN is down 73 with creatinine 2.8 slight improvement so far hemoglobin is 7.2. Still in A-fib with amiodarone and metoprolol currently and continue Cardizem CD2 140 mg daily. Blood sugar brown still fluctuating and adjustment of insulin was made which is not enough so far will go higher on Levemir to 40 units twice a day also NovoLog will be up to 20 units 3 times a day besides sliding scales. Patient started eating more expect hyperglycemia more than hypoglycemia at this point. Nephrology standpoint for still believe that acute kidney injury was secondary to cardiorenal syndrome continue to take Lasix drip patient renal function is improving gradually no sign of obstruction and the patient's creatinine baseline runs around 1.8 close to stage IIIb chronic kidney disease continue current management to help the kidney function. Apparently Zaroxolyn was added at 5 mg a day to improve diuretics effect. With the A-fib and tachycardia on metoprolol was increased up to 100 mg twice a day. 03/15/2024: He is sitting in the chair off BiPAP he is breathing a lot easier, significant improvement in kidney function compared to before, Still in the ICU still seen by pulmonary on more regular basis. Blood sugars running slightly went up will titrate medication today. Creatinine is down to 2.68 compared to 2.8 yesterday with GFR is up to 24, white blood cell still low at 3.8 hemoglobin 7 platelet count 139. With nephrology no need for dialysis at this point and hopefully patient will improve gradually just avoid any nephrotoxic agent despite that patient remain on Lasix drip at 10 mg an hour and Zaroxolyn 5 mg a day which had helped his anasarca quite bit. For the blood sugar patient is almost 2/3 of the dose he was on at home and the blood sugars are still around 200. 03/16/2024: Was transferred out of the ICU yesterday has been feeling slightly better is more clear mentally still comfortably in bed has not done much physical therapy, creatinine has improved significantly in the last few days. His pulse rate has improved some and remain on amiodarone 200 mg daily along with Cardizem CD 240 mg daily also still on metoprolol tartrate 100 mg twice a day. Still on Lasix IV drip 10 mg an hour which seem to diurese really well with it his edema has been much better since. Patient does not require any hemodialysis at this point, respiratory failure improved significantly. Has not done any physical therapy which we will start today as well hopefully p eunice for patient moving to [facility] tomorrow or day after tomorrow. 03/17/2024: Still on Lasix drip 10 mg an hour and still on Zaroxolyn 5 mg daily which had helped his fluid overload requirement his kidney function level at 2.55 creatinine so far not improving from [place]. His mobility has improved some according to physical therapy but patient is not stable. I had long discussion with the niece who is the guardian they have concerned about him going back home and not going to SNF but apparently patient did not qualify for SNF because he was able to walk independently more than expected. The largest picture although he is medically not stable and still have a lot of comorbidity and not safe being home by himself. Also the niece expressed that patient apparently has been having delusion and hallucination seeing people in the room and children walking around his bed all the time. Will request neurology to evaluate the patient again today he was evaluated early and all his symptoms were at the time more metabolic based with the severity of his hypoxia and kidney failure causing problem. 03/18. Patient seen and examined. Patient is alert sitting up in the chair, states he feels much better. Able to obtain a good conversation. REVIEW OF SYSTEMS: CONSTITUTIONAL: No fever, no malaise,. CARDIOVASCULAR: No chest pain, no palpitations, no syncope. PULMONARY: No shortness of breath, no cough, GASTROINTESTINAL: No diarrhea, no nausea, no vomiting, no abdominal pain. NEUROLOGICAL: No headaches, no weakness, PHYSICAL EXAMINATION: GENERAL: The patient is alert, not in any acute distress. Well developed, well nourished. HEENT: Pupils are round and equally reacting to light. EOMI. No scleral icterus. No conjunctival pallor. Normocephalic, atraumatic. No pharyngeal erythema. No thyromegaly. CARDIOVASCULAR: S1 and S2 present. No murmurs, rubs, or gallops. PULMONARY: Chest is clear to auscultation, no wheezing or crackles. ABDOMEN: Soft, nontender, nondistended, normoactive bowel sounds. No palpable organomegaly. MUSCULOSKELETAL: No joint swelling or deformity. EXTREMITIES: No cyanosis, clubbing, or pedal edema. NEUROLOGICAL: Gross neurological examination did not reveal any focal deficits. SKIN: No rashes. Assessment and plan Acute hypoxemic respiratory failure Altered mental status Acute metabolic encephalopathy: Monitor vital signs Monitor CBC Monitor CMP Aggressive bronchopulmonary hygiene Continue IV Lasix 60 mg every 8 Acute kidney injury with worsening kidney function Heart failure with a preserved ejection fraction Severe anasarca and fluid overload: Strict I's and O's Daily weights Continue IV Lasix 60 mg every 8 Nephrology following _A-fib with RVR: Continue amiodarone 200 mg daily along with Cardizem CD 240 mg a day and metoprolol up to 100 mg twice a day, pulse rate is better at this point still on anticoagulation. Cardiology following _Coronary artery disease post bypass surgery from 2019 has not had any chest pain or angina and even if there is a complaint so far patient is not in any condition to go for an intervention. _GI bleed mostly severe hemorrhoid not significant drop in hemoglobin. Monitor CBC _Type 2 diabetes not well-controlled noncompliance to medication has been mostly on Lantus 70 units daily along with NovoLog 35 units AC meals plus sliding scales coverage. Titrate insulin as needed. _End-stage renal disease posttransplant remain on antirejection drugs continue mycophenolate acid along with Prograf and still on prednisone 5 mg daily. Nephrology following _Hypertension: Remain on diltiazem CD 240 mg a day, metoprolol 100 mg twice a day. _Hyperlipidemia: Has been on Lipitor 40 mg a day currently medication. _BPH watch for any urinary retention. _Anticoagulation: Continue Eliquis Labs and medication were reviewed.. Continue same treatment. Continue with symptomatic treatment. Resume home medication. Monitor labs and vitals. DVT and GI prophylaxis. Further recommendations as per clinical course of the patient Dictation was produced using [employer] dictation software. please excuse any grammatical, word or spelling errors. Objective - Vital Signs Vital signs: Vital Signs Temp 97.8 F 03/18/24 08:00 Pulse 123 H 03/18/24 08:00 Resp 16 03/18/24 08:00 BP 105/65 03/18/24 08:00 Pulse Ox 98 03/18/24 08:00 FiO2 40 03/15/24 00:09 Intake & Output 03/17/24 03/18/24 03/18/24 18:59 06:59 18:59 Intake Total 1891.666 Output Total 2500 3000 Balance -608.334 -3000 Weight 68.7 kg Intake: Intake, IV Titration 175.666 Amount Furosemide 100 mg In 175.666 Sodium Chloride 0.9% 90 ml @ 10 MG/HR 10 mls/hr IV .Q10H [facility] Rx#: [id number] Oral 1716 Output: Urine 2500 3000 Other: Voiding Method Indwelling Catheter Indwelling Catheter # Bowel Movements 1 - Labs CBC & Chem 7: 03/17/24 09:55 03/17/24 09:55 Labs: Abnormal Lab Results - Last 24 Hours (Table) 03/17/24 03/17/24 03/17/24 Range/Units 11:53 16:02 19:57 POC Glucose (mg/dL) 226 H 137 H 178 H (70-110) mg/dL 03/18/24 Range/Units 06:07 POC Glucose (mg/dL) 283 H (70-110) mg/dL
--- NOTE | 2024-03-18 16:41 | P.PN ---
Subjective Progress Note Date: 03/18/24 SOB The patient is a 68-year-old gentleman with a past medical history significant for CAD status post CABG as well as history of heart failure with a preserved ejection fraction and also atrial fibrillation and valvular heart disease status post aortic valve replacement and hypertension and dyslipidemia and renal transplant as well as multiple comorbid conditions who was admitted to the hospital with acute hypoxic respiratory failure associated with change in mental status. March 11, 2024 The patient was seen and evaluated this morning. He is lethargic. He continues to be on BiPAP. The echo showed normal LV systolic function with bioprosthetic aortic valve and a peak gradient of about 20 mmHg across the valve. Currently he is on dobutamine. I am going to stop the dobutamine in the light of the patient having normal LV systolic function and beside that he is hemodynamically stable as [id number] currently he is somewhat tachycardic. He continues to be on IV diuretics. Creatinine remains elevated. the examination is remarkable for change in mental status with a stable vital signs besides tachycardia and regular rate and rhythm and systolic murmur and diminished breathing sounds bilaterally and no edema was noted in the lower extremities March 12, 2024 The patient was seen and evaluated this morning. He is mentation has improved somewhat. He remains hemodynamically stable beside being slightly tachycardic. He is on amiodarone and he is on Cardizem and beside that I am going to start the patient on small dose of beta-amy with metoprolol and uptitrate the dose if the pressure permits. He still in overt heart failure with bilateral lower extremities edema and he is still hypoxic requiring BiPAP. No symptoms of chest pain or chest discomfort. He is on oral anticoagulation. He was started on Lasix drip by the nephrology service. The examination is remarkable for regular rhythm with sinus tachycardia and diminished breathing sounds bilaterally and moderate bilateral lower extremities edema 03/13/2024 Patient is seen and examined at bedside this a.m. On telemetry patient is in sinus tachycardia, heart rate 120 bpm. Normotensive. On exam Patient still appears volume overloaded with 3+ pitting edema in bilateral lower extremity. He has elevated JVD, crackles in bilateral lung gage with poor inspiratory effort. Abdomen is nondistended. S1-S2 audible, no murmurs appreciated. 03/14/24 And is seen and examined at bedside this a.m. He is sitting in a chair comfortable position. He denies any active chest pain chest pressure. She will reports significant fatigue and shortness of breath with minimal exertion. On patient still appears volume overloaded with 2+ pitting edema in bilateral lower extremity. Swelling in lower extremities slightly better as compared to yesterday. He has had good urine output with metolazone and IV Lasix drip. He has crackles in bilateral lung gage with poor inspiratory effort, abdomen is nondistended, S1-S2 is audible, no murmurs appreciated Labs shows hemoglobin 7.2, hemoglobin is stable at 7.2. BUN 73 slightly better as compared to before, kidney function is improving creatinine 2.8 slightly better as compared to before 03/15/2024 Blood pressure 116/66, heart rate 125 bpm, sinus tachycardia. Other differential includes atrial flutter. On review of telemetry it appears likely to be sinus tachycardia. Hemoglobin 7.0, hemoglobin has trended down slowly since admission. On admission Will 8.2. BUN 78, creatinine 2.68. Creatinine is slowly improved over the last few days. On admission it was 4.1 Patient had 2 L urine output yesterday. March 16, 2024 Hemoglobin due to blood transfusion yesterday. Since then he is feeling much more awake and alert. His hemoglobin is 8.5 today. His creatinine is continue to improve. Today's creatinine is 2.5. He continues to be maintained on IV L asix drip. March 17, 2024 patient's hemoglobin is stable. Kidney function has stayed stable. He is currently on IV Lasix drip with good urine output. Heart rates are better controlled on higher dose of metoprolol March 18, 2024 Blood pressure 90 15/68, heart rate 120 bpm. Patient continues to be in atrial fibrillation RVR. Hemoglobin 8.5. No further drop in hemoglobin noticed after 1 unit of blood transfusion. No active signs of bleeding. BUN 90, creatinine 2.5. Lasix drip has been discontinued and started on IV push Lasix 60 mg every 8 hours. He is maintained on metolazone. Urine output of 1700 mL over last 24 hours. Assessment Acute hypoxic respiratory failure Heart failure with a preserved ejection fraction Atrial fibrillation with RVR Acute on chronic anemia Change in mental status Renal failure and history of renal transplant Valvular heart disease as described above Multiple comorbid conditions Plan Lasix 60 mg IV 3 times a day, metolazone 5 mg. Currently on Eliquis 2.5. Will continue Eliquis and monitor hemoglobin. His last iron study shows that his ferritin is high with low iron binding capacity suggestive of anemia of chronic disease and CKD Metoprolol to 100 mg twice daily Amiodarone 200 mg daily, Eliquis 2.5 mg, aspirin 81 mg, atorvastatin 40 mg Patient has shown slow clinical improvement. Still appears mildly volume loaded. Good urine output. Objective - Vital Signs Vital signs: Vital Signs Temp 97.9 F 03/18/24 12:00 Pulse 86 03/18/24 13:44 Resp 18 03/18/24 12:00 BP 115/68 03/18/24 12:00 Pulse Ox 97 03/18/24 12:00 FiO2 40 03/15/24 00:09 Intake & Output 03/17/24 03/18/24 03/18/24 18:59 06:59 18:59 Intake Total 1891.666 Output Total 2500 3000 Balance -608.334 -3000 Weight 68.7 kg Intake: Intake, IV Titration 175.666 Amount Furosemide 100 mg In 175.666 Sodium Chloride 0.9% 90 ml @ 10 MG/HR 10 mls/hr IV .Q10H [facility] Rx#: [id number] Oral 1716 Output: Urine 2500 3000 Other: Voiding Method Indwelling Catheter Indwelling Catheter Indwelling Catheter # Bowel Movements 1 - Labs CBC & Chem 7: 03/17/24 09:55 03/17/24 09:55 Labs: Abnormal Lab Results - Last 24 Hours (Table) 03/17/24 03/17/24 03/18/24 Range/Units 09:55 19:57 06:07 POC Glucose (mg/dL) 178 H 283 H (70-110) mg/dL Tacrolimus 4.6 L (5.0-20.0) ng/mL 03/18/24 Range/Units 12:02 POC Glucose (mg/dL) 162 H (70-110) mg/dL Tacrolimus (5.0-20.0) ng/mL
[2024-03-18 16:59] LABS: Glucose,Whole Blood 324 mg/dL (70-110)
--- NOTE | 2024-03-18 19:17 | P.PN ---
Subjective Progress Note Date: 03/18/24 68-year-old male who was recently inpatient here, for an episode of CHF, pn eumonia, and atrial fibrillation with RVR. The patient was discharged from this hospital, and went to [facility]. He was discharged from [facility] on March 07. He was brought back to the hospital, by EMS, yesterday, March 09. He apparently was confused and very lethargic. He had lower extremity edema. He apparently was having difficulty breathing, and he could not be managed at home by his family, so EMS was called. The patient is seen today in the emergency department, room 5. He is currently on 3 L. He is very lethargic and somnolent. He had a blood gas showing a pO2 of 75, pCO2 of 55, pH is 7.31. His N-terminal proBNP was 7190. The patient's chest x-ray was consistent with CHF. My plan is to move the patient to the intensive care unit, start him on dobutamine, and BiPAP. He has been seen by cardiology already. On his last visit here, the patient did require a cardioversion for his atrial fibrillation, and, he received diuretics, and antibiotics. Current laboratory data includes a white count 6.62, hemoglobin 7.7, hematocrit 26.1, and a platelet count of 136,000. Sodium 139, potassium 5.2, chlorides 103, CO2 24, BUN 76, and creatinine 4.1. Glucose is 100. Calcium 9.3. Albumin is 3.3. Troponins were negative x 2. Chest x-ray is consistent with cardiomegaly, and CHF. Brain CT shows a 3.4 x 1.5 cm area in the lateral right middle cranial fossa, which is unchanged, and consistent with a previous infarct/encephalomalacia. 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 In addition, the patient has chronic vessel ischemic disease. Progress note dated March 11, 2024. 68-year-old male with a history of multiple medical problems, was seen yesterday in the emergency department. We moved him to the ICU and placed him on BiPAP, with settings of 12/5, and 40%. I also initially placed him on dobutamine at 5 mcg/kg/min. The patient is getting saline at 10 cc an hour. Off of BiPAP, he is on 4 L nasal cannula. Cardiology turned to dobutamine off given his normal ejection fraction. The patient be started on a Lasix drip at 10 mg an hour. Clinically, the patient looks better today than he did yesterday. He is much more awake and alert although his speech is a bit garbled. Current labs are good white count 6.3, hemoglobin 7.2, hematocrit 24.2, and a platelet count of 113,000. Sodium 132, potassium 4.9, chlorides 103, CO2 25, BUN 83, creatinine 3.76. Glucose is 236. Chest x-ray is improved. The patient's procalcitonin level was 0.15. The most recent N-terminal proBNP was 7190. Progress note dated March 12, 2024. 68-year-old male with a history of multiple medical problems including kidney transplantation, CABG/aortic valve replacement, pneumonia, CHF, atrial fibrillation, etc. The patient was recently inpatient here, and was discharged to a local retirement. After short period of time there, he was discharged home, but did poorly at home, and was brought back to the emergency room. Currently, he is on BiPAP, with settings of 12/5, 40%. He wore it all night. If he is not wearing BiPAP, he is on nasal O2 at between 3 to 4 L/min. The patient is getting saline at 10 cc an hour, and a Lasix drip at 10 mg an hour. White count is 5.5, hemoglobin 7.2, hematocrit 23.8, platelet count 134,000. Sodium 130, potassium 4.3, chlorides 102, CO2 25, BUN 80, creatinine 3.49. The patient's glucose is 313. Blood cultures are negative. Chest x-ray shows right lower lobe airspace opacities. There is cardiomegaly, and pulmonary vascular congestion. On 03/13/2024, the patient is being seen for a follow-up. The patient is cur rently in the intensive care unit for decompensated CHF and fluid overload. The patient is currently on 3 L of oxygen by nasal cannula. His chest x-ray still showing cardiomegaly and bilateral pleural effusion and pulmonary vessel congestion/edema. Most recent chest x-ray from this morning on 03/13/2024 and is consistent with pulmonary edema. The patient is currently off dobutamine and he is also off dopamine and the patient is currently on Lasix drip at 10 mg an hour. Urine output is adequate and the patient is in a negative fluid balance of 593 cc over the past 12 hours. His sodium is at 129, potassium is at 4.3, BUN is 78 with a creatinine of 3.05 and the patient's white cell count is 5.1 with a hemoglobin 7.2 and a platelet count of 130. He remains in atrial fibrillation. He is currently on amiodarone 200 mg p.o. daily and is also on metoprolol 25 mg p.o. 3 times daily. He remains on anticoagulation with Eliquis 2.5 mg p.o. twice a day and Cardizem CD2 40 mg p.o. daily. He remains on immunosuppression regarding his renal transplantation the patient remains on Prograf 4 mg daily and low-dose prednisone 5 mg p.o. daily. Awake and alert and communicating. No encephalopathy. On 03/14/2024, the patient is being seen for a follow-up. The patient is calm and comfortable on 40s of oxygen by nasal cannula. The patient remains on Lasix drip at 10 mg an hour. Fluid balance is -1.3 L over the past 24 hours. No significant respiratory distress. No cough or sputum production. No chest tightness or wheezing. The patient has a BUN of 73 with a creatinine of 2.8 and the renal function continues to improve. The sodium is at 134 with a potassium level of 4.1. The white cell count is at 4.8 with a hemoglobin 7.2 and a platelet count of 152. Remains on amiodarone 5 mg p.o. daily. Remains on metoprolol 25 mg p.o. 3 times daily. Remains on Cardizem to 40 mg p.o. daily. Remains on anticoagulation with Eliquis 2.5 mg p.o. twice a day. Remains on Lasix drip and Zaroxolyn was also added yesterday and the dose of 5 mg p.o. daily. Remains on immunosuppression regarding his renal transplantation. On 03/15/2024, the patient is being seen for a follow-up. This morning, the patient remains on Lasix drip at 10 mg an hour. He is producing excellent urine output and the patient's fluid balance is -2.6 L over the past 24 hours. Also on Zaroxolyn. He is on 4 L of O2 nasal cannula with a pulse ox of 95%. BUN is a 78 with a creatinine of 2.6 and a sodium levels at 133 and a potassium level is at 4.3. WBC count has 3.8 with a hemoglobin of 7 and a platelet count of 139. The patient has also been in atrial fibrillation and is currently tachycardic. He remains on metoprolol 50 mg p.o. twice a day. He is on Cardizem CD to 40 mg p.o. daily and he remains on anticoagulation with Eliquis 2.5 mg p.o. twice a day. He remains on 40 units of Levemir insulin twice a day and 20 units with meals of NovoLog. Awake and alert and communicating. No other new complaints otherwise for now. On today's evaluation of 04/02/2024, the patient is resting comfortably in bed. The patient remains on Lasix drip at 10 mg an hour. Fluid balance remains -1.2 L over the past 24 hours. The patient is calm and comfortable, still has lower extremity edema. Pulse ox 90% on 4 L of oxygen by nasal cannula. The white cell count is at 5.9 with a hemoglobin of 8.5 and a platelet count of 158. The patient was also noted to have a BUN of 80 with a creatinine of 2.51 and a sodium level of 132. Noted the patient has 30 and ongoing improvement in the renal function. Remains on anticoagulation with Eliquis 2.5 mg p.o. twice daily. Remains on amiodarone 200 mg p.o. daily. Remains on Cardizem CD to 40 mg p.o. daily metoprolol 100 mg p.o. twice a day for rate control. He does have underlying chronic atrial fibrillation. Remains on immunosuppression the patient remains on mycophenolate 720 mg p.o. twice a day and Prograf 4 mg p.o. daily and low-dose prednisone 5 mg p.o. daily. Remains on Zaroxolyn. Remains on insulin 40 units of Levemir twice a day and 20 units of NovoLog with meals. 03/17/2024, seen the patient for a follow-up. The patient continues to be on IV Lasix drip 10 mg an hour. Doing well and the patient remains in negative fluid balance. Continues to have some lower extremity edema. Oxygenation is stable and the patient was weaned down to 2 L of oxygen by nasal cannula and is maintaining a pulse ox of 96%. He remains on Lasix at 10 mg an hour. Rest of the medication unchanged. He remains on Zaroxolyn 5 mg p.o. daily. His creatinine is stable today with a level of 2.55 which is essentially unchanged compared to yesterday. Sodium levels at 133 with a potassium level of 3.8, rest of the electrolytes are stable with a bicarb level of 33, WC count of 5.9 with a hemoglobin 8.5 and a platelet count of 140. Denies having any chest pain. He reports ongoing improvement. He was transferred out of the intensive care unit few days back and he is currently on the telemetry unit. On today's evaluation of 03/16/2024, the patient is being seen for a follow-up. The patient is doing well. No specific complaints. Oxygenation is stable and the patient is currently on 2 L of O2 nasal cannula. He was taken off the IV Lasix drip and the patient is currently receiving Lasix 60 mg IV every 8 hours. Fluid balance is still negative in the order of -4.8 L over the past 24 hours. Lower extremity edema is improving. The patient's blood work from today is still pending. Creatinine was stable from yesterday at 2.55 with a BUN of 90. Nephrology on the case. He remains on anticoagulation with Eliquis 2.5 mg p.o. twice a day. Remains on a combination metoprolol 100 mg twice daily and amiodarone 200 mg p.o. daily. He is on 5 mg of prednisone in addition to Prograf and mycophenolate. He remains on Zaroxolyn 5 mg p.o. daily. Objective - Vital Signs Vital signs: Vital Signs Temp 97.8 F 03/18/24 08:00 Pulse 123 H 03/18/24 08:00 Resp 16 03/18/24 08:00 BP 105/65 03/18/24 08:00 Pulse Ox 98 03/18/24 08:00 FiO2 40 03/15/24 00:09 Intake & Output 03/17/24 03/18/24 03/18/24 18:59 06:59 18:59 Intake Total 1891.666 Output Total 2500 3000 Balance -608.334 -3000 Weight 68.7 kg Intake: Intake, IV Titration 175.666 Amount Furosemide 100 mg In 175.666 Sodium Chloride 0.9% 90 ml @ 10 MG/HR 10 mls/hr IV .Q10H [facility] Rx#: [id number] Oral 1716 Output: Urine 2500 3000 Other: Voiding Method Indwelling Catheter Indwelling Catheter # Bowel Movements 1 - Exam No acute distress, much improved, currently on nasal O2, at 4 L of oxygen by nasal cannula Head exam was generally normal. There was no scleral icterus or corneal arcus. Mucous membranes were moist. HEENT examination is grossly unremarkable. Mucous membranes are moist. No oral lesions. Neck supple. Full range of motion. No adenopathy thyromegaly or neck vein distention. Cardiovascular examination reveals an regular rhythm and rate. S1-S2 normal. No S3 or S4. Systolic ejection murmur grade 3/6 heard throughout the precordium including left lateral sternal border and apex. Lungs reveal bilateral coarse rhonchi. Basilar crackles are noted. No wheezes. Breath sounds are equal bilaterally. Abdomen obese, but without tenderness. Extremities are intact. No signs or clubbing. There is 2-3+ edema. Skin is without rash or lesion. Neurologic examination is brief but nonfocal. - Labs CBC & Chem 7: 03/17/24 09:55 03/17/24 09:55 Labs: Abnormal Lab Results - Last 24 Hours (Table) 03/17/24 03/17/24 03/17/24 Range/Units 11:53 16:02 19:57 POC Glucose (mg/dL) 226 H 137 H 178 H (70-110) mg/dL 03/18/24 Range/Units 06:07 POC Glucose (mg/dL) 283 H (70-110) mg/dL Assessment and Plan Plan: Acute hypoxemic respiratory failure, secondary to CHF, in a patient with heart failure, and a preserved ejection fraction (HFPEF). The patient is currently on 4 L of oxygen by nasal cannula, no signs of any respiratory distress at rest. The patient had a recent admission to this hospital, with an episode of respiratory failure secondary to CHF, pneumonia, and atrial fibrillation/RVR, requiring cardioversion. Current rhythm is atrial fibrillation, continues to be slightly tachycardic. Meanwhile, the patient is still stable and the oxygenation and he remains on 2 L nasal cannula and the patient oxygenation essentially improving. Acute pulmonary edema, preserved LV function and echocardiogram that was done on 03/10/2023 showed LV function, bioprosthetic aortic valve with a peak gradient of 37 mm with trace regurgitation and the patient also had a moderate degree of mitral regurgitation Acute on chronic kidney injury. Creatinine is improving and the creatinine is improving, and the patient is currently off Lasix-the patient receiving 60 mg of IV Lasix every 8 hours, fluid balance remains negative. Mental status change, improved and the patient is awake and alert x 3 coronary artery disease, with previous bypass surgery in 2019 along with aortic valve replacement History of renal transplantation, [facility], 2013. Maintained on mycophenolate 720 mg p.o. twice a day Prograft 1 mg daily and prednisone 5 mg daily History of previous bypass grafting/AVR, [facility], 2019. Chronic atrial fibrillation/ A flutter with rapid ventricular response at time of admission the patient is S/P transesophageal echocardiogram, and cardioversion, February 17, 2024. Rate is controlled for now and the patient remains on amiodarone and metoprolol and the patient is also on anticoagulation with Eliquis. The patient is on amiodarone 200 mg p.o. daily, Cardizem 240 mg p.o. daily and metoprolol 25 mg p.o. 3 times daily. Acute on top of chronic kidney disease, creatinine continues to improve and the patient is producing excellent amount of urine output. History of hypertension. COPD, from previous tobacco use. History of dyslipidemia. History of diabetes mellitus type II, Levemir 40 units BId and NovoLog 20 units with meals and SS History of gout. Obesity. History of CVA, age 42. Hyponatremia secondary to above, improved Plan: Titrate oxygen to maintain saturation above 90%, currently on 2 L of oxygen by nasal cannula and we should be able to further wean down FiO2 as tolerated. Keep legs elevated, leg edema is improving Continue Lasix 60 mg IV every 8 hours in addition to Zaroxolyn 5 mg p.o. daily fluid balance is negative Monitor electrolytes and renal function the creatinine is improving Nephrology on the case and the patient is currently on a combination of Prograf and prednisone Continue amiodarone, Cardizem and metoprolol for rate control and the patient is anticoagulated with Eliquis, the patient remains in atrial fibrillation. Increase the metoprolol dose to 50 mg 3 times daily Rest of the medication will be kept unchanged. The plan is essential to continue diuresis and monitor the fluid balance, electrolytes and monitor the respiratory status. Will continue to follow this patient's case along with the rest of the consultants. Hemodynamically stable at this point in time.
--- NOTE | 2024-03-18 19:35 | P.PN ---
Subjective Progress Note Date: 03/18/24 Patient is seen for follow-up for acute kidney injury and chronic kidney disease. Currently maintained on Lasix drip for volume overload along with Zaroxolyn. Feeling well and breathing stable. Hoping to go home soon. Patient is awake, comfortable, alert oriented 3. Examination of the heart S1 and S2 Examination of the lungs bilateral breath sounds are heard Abdomen is soft obese Examination lower extremity shows edema 2+ bilaterally, improved. COOK TACO exam grossly intact Objective - Vital Signs Vital signs: Vital Signs Temp 97.8 F 03/18/24 08:00 Pulse 123 H 03/18/24 08:00 Resp 16 03/18/24 08:00 BP 105/65 03/18/24 08:00 Pulse Ox 98 03/18/24 08:00 FiO2 40 03/15/24 00:09 Intake & Output 03/17/24 03/18/24 03/18/24 18:59 06:59 18:59 Intake Total 1891.666 Output Total 2500 3000 Balance -608.334 -3000 Weight 68.7 kg Intake: Intake, IV Titration 175.666 Amount Furosemide 100 mg In 175.666 Sodium Chloride 0.9% 90 ml @ 10 MG/HR 10 mls/hr IV .Q10H [facility] Rx#: [id number] Oral 1716 Output: Urine 2500 3000 Other: Voiding Method Indwelling Catheter Indwelling Catheter # Bowel Movements 1 - Labs CBC & Chem 7: 03/17/24 09:55 03/17/24 09:55 Labs: Abnormal Lab Results - Last 24 Hours (Table) 03/17/24 03/17/24 03/18/24 Range/Units 16:02 19:57 06:07 POC Glucose (mg/dL) 137 H 178 H 283 H (70-110) mg/dL 03/18/24 Range/Units 12:02 POC Glucose (mg/dL) 162 H (70-110) mg/dL Assessment and Plan Assessment: 1. Acute kidney injury secondary to cardiorenal syndrome. Currently maintained on Lasix drip. Renal function is improving. No evidence of obstruction on ultrasound. 2. CKD stage III B with baseline creatinine 1.8 to 2.0 mg/dL secondary to chronic allograft nephropathy and cardiorenal syndrome. 3. Acute hypoxic respiratory failure secondary to CHF and fluid overload 4. Volume overload 5. Acute on chronic diastolic CHF with moderate mitral regurgitation 6. Status post donor renal transplant in 2012 at [facility] maintained on tacrolimus, prednisone and Myfortic. tacrolimus level high at 9.8 on 03/11/2024. Dose has been decreased and repeat level was 6.9. This was repeated again yesterday. 7. Hypertension with CK D stage III 8. Hypervolemic hyponatremia. Plan: Continue decreased dose of Prograf. Follow-up on repeat tacrolimus level. Continue IV push Lasix and Zaroxolyn 5 mg daily. Repeat labs in a.m.
[2024-03-18 20:02] LABS: Glucose,Whole Blood 321 mg/dL (70-110)
[2024-03-19 06:11] LABS: Glucose,Whole Blood 148 mg/dL (70-110)
[2024-03-19 07:01] LABS: Anisocytosis Slight; Basophils % (A) 0 %; Eosinophils # (A) 0.2 k/uL (0-0.7); Eosinophils % (A) 3 %; HCT 31.1 % (39.0-53.0); HGB 9.6 gm/dL (13.0-17.5); Hypochromasia Moderate; Lymphocytes # (A) 1.2 k/uL (1.0-4.8); Lymphocytes % (A) 17 %; MCH 29.6 pg (25.0-35.0); MCV 95.6 fL (80.0-100.0); Mean Platelet Volume 7.6; Monocytes # (A) 0.4 k/uL (0-1.0); Monocytes % (A) 5 %; Neutrophils # (A) 5.2 k/uL (1.3-7.7); Neutrophils % (A) 72 %; Platelet Count 181 k/uL (150-450); RBC 3.25 m/uL (4.30-5.90); RDW 16.1 % (11.5-15.5); WBC 7.1 k/uL (3.8-10.6)
[2024-03-19 07:34] LABS: ALT 21 U/L (4-49); AST 18 U/L (17-59); African American GFR (CKD) 29 (>60 ml/min/1.73 sqM); Albumin 3.3 g/dL (3.5-5.0); Alkaline Phosphatase 71 U/L (38-126); Blood Urea Nitrogen 91 mg/dL (9-20); Calcium 9.5 mg/dL (8.4-10.2); Glucose 121 mg/dL (74-99); Non-African American GFR(CKD) 25 (>60 ml/min/1.73 sqM); Potassium 3.2 mmol/L (3.5-5.1); Sodium 139 mmol/L (137-145); Total Bilirubin 0.5 mg/dL (0.2-1.3); Total Protein 5.8 g/dL (6.3-8.2)
[2024-03-19 07:50] LABS: Chloride 93 mmol/L (98-107)
[2024-03-19 07:58] LABS: Anion Gap 7 mmol/L; Carbon Dioxide 39 mmol/L (22-30)
[2024-03-19 11:37] LABS: Glucose,Whole Blood 200 mg/dL (70-110)
[2024-03-19] MEDS: POTASSIUM CHLORIDE ER 20 MEQ TAB.ER PO STA (11:58)
--- NOTE | 2024-03-19 12:29 | P.PN ---
Subjective Progress Note Date: 03/19/24 Patient is seen for follow-up for acute kidney injury and chronic kidney disease. Currently maintained on Lasix drip for volume overload along with Zaroxolyn. Feeling well and breathing stable. Hoping to go home soon. Patient is awake, comfortable, alert oriented 3. Examination of the heart S1 and S2 Examination of the lungs bilateral breath sounds are heard Abdomen is soft obese Examination lower extremity shows edema 2+ bilaterally, improved. LINUX ADMIN exam grossly intact Objective - Vital Signs Vital signs: Vital Signs Temp 98.4 F 03/19/24 08:00 Pulse 126 H 03/19/24 08:35 Resp 16 03/19/24 08:00 BP 124/71 03/19/24 08:00 Pulse Ox 99 03/19/24 08:13 FiO2 40 03/15/24 00:09 Intake & Output 03/18/24 03/19/24 03/19/24 18:59 06:59 18:59 Intake Total 800 480 Balance 800 480 Weight 87.8 kg Intake: Oral 800 480 Other: Voiding Method Indwelling Catheter Indwelling Catheter - Labs CBC & Chem 7: 03/19/24 06:41 03/19/24 06:41 Labs: Abnormal Lab Results - Last 24 Hours (Table) 03/17/24 03/18/24 03/18/24 Range/Units 09:55 12:02 16:57 RBC (4.30-5.90) m/uL Hgb (13.0-17.5) gm/dL Hct (39.0-53.0) % RDW (11.5-15.5) % Potassium (3.5-5.1) mmol/L Chloride (98-107) mmol/L Carbon Dioxide (22-30) mmol/L BUN (9-20) mg/dL Creatinine (0.66-1.25) mg/dL Glucose (74-99) mg/dL POC Glucose (mg/dL) 162 H 324 H (70-110) mg/dL Total Protein (6.3-8.2) g/dL Albumin (3.5-5.0) g/dL Tacrolimus 4.6 L (5.0-20.0) ng/mL 03/18/24 03/19/24 03/19/24 Range/Units 20:01 06:10 06:41 RBC 3.25 L (4.30-5.90) m/uL Hgb 9.6 L (13.0-17.5) gm/dL Hct 31.1 L (39.0-53.0) % RDW 16.1 H (11.5-15.5) % Potassium (3.5-5.1) mmol/L Chloride (98-107) mmol/L Carbon Dioxide (22-30) mmol/L BUN (9-20) mg/dL Creatinine (0.66-1.25) mg/dL Glucose (74-99) mg/dL POC Glucose (mg/dL) 321 H 148 H (70-110) mg/dL Total Protein (6.3-8.2) g/dL Albumin (3.5-5.0) g/dL Tacrolimus (5.0-20.0) ng/mL 03/19/24 Range/Units 06:41 RBC (4.30-5.90) m/uL Hgb (13.0-17.5) gm/dL Hct (39.0-53.0) % RDW (11.5-15.5) % Potassium 3.2 L (3.5-5.1) mmol/L Chloride 93 L (98-107) mmol/L Carbon Dioxide 39 H (22-30) mmol/L BUN 91 H (9-20) mg/dL Creatinine 2.53 H (0.66-1.25) mg/dL Glucose 121 H (74-99) mg/dL POC Glucose (mg/dL) (70-110) mg/dL Total Protein 5.8 L (6.3-8.2) g/dL Albumin 3.3 L (3.5-5.0) g/dL Tacrolimus (5.0-20.0) ng/mL Assessment and Plan Assessment: 1. Acute kidney injury secondary to cardiorenal syndrome. Currently maintained on Lasix drip. Renal function is improving. No evidence of obstruction on ultrasound. Creatinine stable 2.5 mg/dL 2. 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 3. Acute hypoxic respiratory failure secondary to CHF and fluid overload 4. Volume overload 5. Acute on chronic diastolic CHF with moderate mitral regurgitation 6. Status post donor renal transplant in 2012 at [facility] maintained on tacrolimus, prednisone and Myfortic. tacrolimus level high at 9.8 on 03/11/2024. Dose has been decreased and repeat level was 6.9. This was repeated again yesterday. 7. Hypertension with CK D stage III 8. Hypervolemic hyponatremia. Plan: Continue decreased dose of Prograf. Follow-up on repeat tacrolimus level. Increased fluid restriction to 1500cc daily per patient request. Continue IV push Lasix and Zaroxolyn 5 mg daily. Creatinine remains stable, possibly new baseline level. Expressed interest in follow-up with our group outpatient for transplant veronica guillen. Transition to PO diuretics tomorrow and likely discharge
--- NOTE | 2024-03-19 12:35 | P.PN ---
Subjective Progress Note Date: 03/19/24 68-year-old male who was recently inpatient here, for an episode of CHF, pn eumonia, and atrial fibrillation with RVR. The patient was discharged from this hospital, and went to [facility]. He was discharged from [facility] on March 07. He was brought back to the hospital, by EMS, yesterday, March 09. He apparently was confused and very lethargic. He had lower extremity edema. He apparently was having difficulty breathing, and he could not be managed at home by his family, so EMS was called. The patient is seen today in the emergency department, room 5. He is currently on 3 L. He is very lethargic and somnolent. He had a blood gas showing a pO2 of 75, pCO2 of 55, pH is 7.31. His N-terminal proBNP was 7190. The patient's chest x-ray was consistent with CHF. My plan is to move the patient to the intensive care unit, start him on dobutamine, and BiPAP. He has been seen by cardiology already. On his last visit here, the patient did require a cardioversion for his atrial fibrillation, and, he received diuretics, and antibiotics. Current laboratory data includes a white count 6.62, hemoglobin 7.7, hematocrit 26.1, and a platelet count of 136,000. Sodium 139, potassium 5.2, chlorides 103, CO2 24, BUN 76, and creatinine 4.1. Glucose is 100. Calcium 9.3. Albumin is 3.3. Troponins were negative x 2. Chest x-ray is consistent with cardiomegaly, and CHF. Brain CT shows a 3.4 x 1.5 cm area in the lateral right middle cranial fossa, which is unchanged, and consistent with a previous infarct/encephalomalacia. 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 In addition, the patient has chronic vessel ischemic disease. Progress note dated March 11, 2024. 68-year-old male with a history of multiple medical problems, was seen yesterday in the emergency department. We moved him to the ICU and placed him on BiPAP, with settings of 12/5, and 40%. I also initially placed him on dobutamine at 5 mcg/kg/min. The patient is getting saline at 10 cc an hour. Off of BiPAP, he is on 4 L nasal cannula. Cardiology turned to dobutamine off given his normal ejection fraction. The patient be started on a Lasix drip at 10 mg an hour. Clinically, the patient looks better today than he did yesterday. He is much more awake and alert although his speech is a bit garbled. Current labs are good white count 6.3, hemoglobin 7.2, hematocrit 24.2, and a platelet count of 113,000. Sodium 132, potassium 4.9, chlorides 103, CO2 25, BUN 83, creatinine 3.76. Glucose is 236. Chest x-ray is improved. The patient's procalcitonin level was 0.15. The most recent N-terminal proBNP was 7190. Progress note dated March 12, 2024. 68-year-old male with a history of multiple medical problems including kidney transplantation, CABG/aortic valve replacement, pneumonia, CHF, atrial fibrillation, etc. The patient was recently inpatient here, and was discharged to a local long term. After short period of time there, he was discharged home, but did poorly at home, and was brought back to the emergency room. Currently, he is on BiPAP, with settings of 12/5, 40%. He wore it all night. If he is not wearing BiPAP, he is on nasal O2 at between 3 to 4 L/min. The patient is getting saline at 10 cc an hour, and a Lasix drip at 10 mg an hour. White count is 5.5, hemoglobin 7.2, hematocrit 23.8, platelet count 134,000. Sodium 130, potassium 4.3, chlorides 102, CO2 25, BUN 80, creatinine 3.49. The patient's glucose is 313. Blood cultures are negative. Chest x-ray shows right lower lobe airspace opacities. There is cardiomegaly, and pulmonary vascular congestion. On 03/13/2024, the patient is being seen for a follow-up. The patient is cur rently in the intensive care unit for decompensated CHF and fluid overload. The patient is currently on 3 L of oxygen by nasal cannula. His chest x-ray still showing cardiomegaly and bilateral pleural effusion and pulmonary vessel congestion/edema. Most recent chest x-ray from this morning on 03/13/2024 and is consistent with pulmonary edema. The patient is currently off dobutamine and he is also off dopamine and the patient is currently on Lasix drip at 10 mg an hour. Urine output is adequate and the patient is in a negative fluid balance of 593 cc over the past 12 hours. His sodium is at 129, potassium is at 4.3, BUN is 78 with a creatinine of 3.05 and the patient's white cell count is 5.1 with a hemoglobin 7.2 and a platelet count of 130. He remains in atrial fibrillation. He is currently on amiodarone 200 mg p.o. daily and is also on metoprolol 25 mg p.o. 3 times daily. He remains on anticoagulation with Eliquis 2.5 mg p.o. twice a day and Cardizem CD2 40 mg p.o. daily. He remains on immunosuppression regarding his renal transplantation the patient remains on Prograf 4 mg daily and low-dose prednisone 5 mg p.o. daily. Awake and alert and communicating. No encephalopathy. On 03/14/2024, the patient is being seen for a follow-up. The patient is calm and comfortable on 40s of oxygen by nasal cannula. The patient remains on Lasix drip at 10 mg an hour. Fluid balance is -1.3 L over the past 24 hours. No significant respiratory distress. No cough or sputum production. No chest tightness or wheezing. The patient has a BUN of 73 with a creatinine of 2.8 and the renal function continues to improve. The sodium is at 134 with a potassium level of 4.1. The white cell count is at 4.8 with a hemoglobin 7.2 and a platelet count of 152. Remains on amiodarone 5 mg p.o. daily. Remains on metoprolol 25 mg p.o. 3 times daily. Remains on Cardizem to 40 mg p.o. daily. Remains on anticoagulation with Eliquis 2.5 mg p.o. twice a day. Remains on Lasix drip and Zaroxolyn was also added yesterday and the dose of 5 mg p.o. daily. Remains on immunosuppression regarding his renal transplantation. On 03/15/2024, the patient is being seen for a follow-up. This morning, the patient remains on Lasix drip at 10 mg an hour. He is producing excellent urine output and the patient's fluid balance is -2.6 L over the past 24 hours. Also on Zaroxolyn. He is on 4 L of O2 nasal cannula with a pulse ox of 95%. BUN is a 78 with a creatinine of 2.6 and a sodium levels at 133 and a potassium level is at 4.3. WBC count has 3.8 with a hemoglobin of 7 and a platelet count of 139. The patient has also been in atrial fibrillation and is currently tachycardic. He remains on metoprolol 50 mg p.o. twice a day. He is on Cardizem CD to 40 mg p.o. daily and he remains on anticoagulation with Eliquis 2.5 mg p.o. twice a day. He remains on 40 units of Levemir insulin twice a day and 20 units with meals of NovoLog. Awake and alert and communicating. No other new complaints otherwise for now. On today's evaluation of 04/02/2024, the patient is resting comfortably in bed. The patient remains on Lasix drip at 10 mg an hour. Fluid balance remains -1.2 L over the past 24 hours. The patient is calm and comfortable, still has lower extremity edema. Pulse ox 90% on 4 L of oxygen by nasal cannula. The white cell count is at 5.9 with a hemoglobin of 8.5 and a platelet count of 158. The patient was also noted to have a BUN of 80 with a creatinine of 2.51 and a sodium level of 132. Noted the patient has 30 and ongoing improvement in the renal function. Remains on anticoagulation with Eliquis 2.5 mg p.o. twice daily. Remains on amiodarone 200 mg p.o. daily. Remains on Cardizem CD to 40 mg p.o. daily metoprolol 100 mg p.o. twice a day for rate control. He does have underlying chronic atrial fibrillation. Remains on immunosuppression the patient remains on mycophenolate 720 mg p.o. twice a day and Prograf 4 mg p.o. daily and low-dose prednisone 5 mg p.o. daily. Remains on Zaroxolyn. Remains on insulin 40 units of Levemir twice a day and 20 units of NovoLog with meals. 03/17/2024, seen the patient for a follow-up. The patient continues to be on IV Lasix drip 10 mg an hour. Doing well and the patient remains in negative fluid balance. Continues to have some lower extremity edema. Oxygenation is stable and the patient was weaned down to 2 L of oxygen by nasal cannula and is maintaining a pulse ox of 96%. He remains on Lasix at 10 mg an hour. Rest of the medication unchanged. He remains on Zaroxolyn 5 mg p.o. daily. His creatinine is stable today with a level of 2.55 which is essentially unchanged compared to yesterday. Sodium levels at 133 with a potassium level of 3.8, rest of the electrolytes are stable with a bicarb level of 33, WC count of 5.9 with a hemoglobin 8.5 and a platelet count of 140. Denies having any chest pain. He reports ongoing improvement. He was transferred out of the intensive care unit few days back and he is currently on the telemetry unit. On today's evaluation of 03/16/2024, the patient is being seen for a follow-up. The patient is doing well. No specific complaints. Oxygenation is stable and the patient is currently on 2 L of O2 nasal cannula. He was taken off the IV Lasix drip and the patient is currently receiving Lasix 60 mg IV every 8 hours. Fluid balance is still negative in the order of -4.8 L over the past 24 hours. Lower extremity edema is improving. The patient's blood work from today is still pending. Creatinine was stable from yesterday at 2.55 with a BUN of 90. Nephrology on the case. He remains on anticoagulation with Eliquis 2.5 mg p.o. twice a day. Remains on a combination metoprolol 100 mg twice daily and amiodarone 200 mg p.o. daily. He is on 5 mg of prednisone in addition to Prograf and mycophenolate. He remains on Zaroxolyn 5 mg p.o. daily. 03/19/2024, the patient is being seen for a follow-up. No specific complaints. The patient is currently on 2 L of oxygen by nasal cannula. The patient is on IV Lasix 60 mg every 8 hours and Zaroxolyn. Breathing is adequate. Blood work from today shows a creatinine of 2.5 with a BUN of 91 and the patient's creatinine has been stable. Sodium levels of 139, potassium 3.2, white cell count is at 7.0 with a hemoglobin 9.6. The patient's pulse ox 95% liters of oxygen by nasal cannula. No other significant events overnight. Lower extremity edema is improving. The patient is on tacrolimus and Prograf. Objective - Vital Signs Vital signs: Vital Signs Temp 98.4 F 03/19/24 08:00 Pulse 126 H 03/19/24 08:35 Resp 16 03/19/24 08:00 BP 124/71 03/19/24 08:00 Pulse Ox 99 03/19/24 08:13 FiO2 40 03/15/24 00:09 Intake & Output 03/18/24 03/19/24 03/19/24 18:59 06:59 18:59 Intake Total 800 480 Balance 800 480 Weight 87.8 kg Intake: Oral 800 480 Other: Voiding Method Indwelling Catheter Indwelling Catheter - Exam No acute distress, much improved, currently on nasal O2, at 4 L of oxygen by nasal cannula Head exam was generally normal. There was no scleral icterus or corneal arcus. Mucous membranes were moist. HEENT examination is grossly unremarkable. Mucous membranes are moist. No oral lesions. Neck supple. Full range of motion. No adenopathy thyromegaly or neck vein distention. Cardiovascular examination reveals an regular rhythm and rate. S1-S2 normal. No S3 or S4. Systolic ejection murmur grade 3/6 heard throughout the precordium including left lateral sternal border and apex. Lungs reveal bilateral coarse rhonchi. Basilar crackles are noted. No wheezes. Breath sounds are equal bilaterally. Abdomen obese, but without tenderness. Extremities are intact. No signs or clubbing. There is 2-3+ edema. Skin is without rash or lesion. Neurologic examination is brief but nonfocal. - Labs CBC & Chem 7: 03/19/24 06:41 03/19/24 06:41 Labs: Abnormal Lab Results - Last 24 Hours (Table) 03/17/24 03/18/24 03/18/24 Range/Units 09:55 12:02 16:57 RBC (4.30-5.90) m/uL Hgb (13.0-17.5) gm/dL Hct (39.0-53.0) % RDW (11.5-15.5) % Potassium (3.5-5.1) mmol/L Chloride (98-107) mmol/L Carbon Dioxide (22-30) mmol/L BUN (9-20) mg/dL Creatinine (0.66-1.25) mg/dL Glucose (74-99) mg/dL POC Glucose (mg/dL) 162 H 324 H (70-110) mg/dL Total Protein (6.3-8.2) g/dL Albumin (3.5-5.0) g/dL Tacrolimus 4.6 L (5.0-20.0) ng/mL 03/18/24 03/19/24 03/19/24 Range/Units 20:01 06:10 06:41 RBC 3.25 L (4.30-5.90) m/uL Hgb 9.6 L (13.0-17.5) gm/dL Hct 31.1 L (39.0-53.0) % RDW 16.1 H (11.5-15.5) % Potassium (3.5-5.1) mmol/L Chloride (98-107) mmol/L Carbon Dioxide (22-30) mmol/L BUN (9-20) mg/dL Creatinine (0.66-1.25) mg/dL Glucose (74-99) mg/dL POC Glucose (mg/dL) 321 H 148 H (70-110) mg/dL Total Protein (6.3-8.2) g/dL Albumin (3.5-5.0) g/dL Tacrolimus (5.0-20.0) ng/mL 03/19/24 Range/Units 06:41 RBC (4.30-5.90) m/uL Hgb (13.0-17.5) gm/dL Hct (39.0-53.0) % RDW (11.5-15.5) % Potassium 3.2 L (3.5-5.1) mmol/L Chloride 93 L (98-107) mmol/L Carbon Dioxide 39 H (22-30) mmol/L BUN 91 H (9-20) mg/dL Creatinine 2.53 H (0.66-1.25) mg/dL Glucose 121 H (74-99) mg/dL POC Glucose (mg/dL) (70-110) mg/dL Total Protein 5.8 L (6.3-8.2) g/dL Albumin 3.3 L (3.5-5.0) g/dL Tacrolimus (5.0-20.0) ng/mL Assessment and Plan Plan: Acute hypoxemic respiratory failure, secondary to CHF, in a patient with heart failure, and a preserved ejection fraction (HFPEF). The patient is currently on 4 L of oxygen by nasal cannula, no signs of any respiratory distress at rest. The patient had a recent admission to this hospital, with an episode of respiratory failure secondary to CHF, pneumonia, and atrial fibrillation/RVR, requiring cardioversion. Current rhythm is atrial fibrillation, continues to be slightly tachycardic. Meanwhile, the patient is still stable and the oxygenation and he remains on 2 L nasal cannula and the patient oxygenation essentially improving. Acute pulmonary edema, preserved LV function and echocardiogram that was done on 03/10/2023 showed LV function, bioprosthetic aortic valve with a peak gradient of 37 mm with trace regurgitation and the patient also had a moderate degree of mitral regurgitation Acute on chronic kidney injury. Creatinine is improving and the creatinine is improving, and the patient is currently off Lasix-the patient receiving 60 mg of IV Lasix every 8 hours, fluid balance remains negative. Mental status change, improved and the patient is awake and alert x 3 coronary artery disease, with previous bypass surgery in 2019 along with aortic valve replacement History of renal transplantation, [facility], 2013. Maintained on mycophenolate 720 mg p.o. twice a day Prograft 1 mg daily and prednisone 5 mg daily History of previous bypass grafting/AVR, [facility], 2019. Chronic atrial fibrillation/ A flutter with rapid ventricular response at time of admission the patient is S/P transesophageal echocardiogram, and cardiover jono, February 17, 2024. Rate is controlled for now and the patient remains on amiodarone and metoprolol and the patient is also on anticoagulation with Eliquis. The patient is on amiodarone 200 mg p.o. daily, Cardizem 240 mg p.o. daily and metoprolol 25 mg p.o. 3 times daily. Acute on top of chronic kidney disease, creatinine continues to improve and the patient is producing excellent amount of urine output. History of hypertension. COPD, from previous tobacco use. History of dyslipidemia. History of diabetes mellitus type II, Levemir 40 units BId and NovoLog 20 units with meals and SS History of gout. Obesity. History of CVA, age 42. Hyponatremia secondary to above, improved Plan: Titrate oxygen to maintain saturation above 90%, currently on 2 L of oxygen by nasal cannula and we should be able to further wean down FiO2 as tolerated. Oxygenation remained stable Keep legs elevated, leg edema is improving Continue Lasix 60 mg IV every 8 hours in addition to Zaroxolyn 5 mg p.o. daily fluid balance is negative Monitor electrolytes and renal function the creatinine is stable compared to yesterday Nephrology on the case and the patient is currently on a combination of Prograf, CellCept and prednisone, management of the immunosuppressive agents by nephrology Continue amiodarone, Cardizem and metoprolol for rate control and the patient is anticoagulated with Eliquis, the patient remains in atrial fibrillation. Increase the metoprolol dose to 100 mg 2 times times daily Rest of the medication will be kept unchanged. The plan is essential to continue diuresis and monitor the fluid balance, electrolytes and monitor the respiratory status. Hemodynamically stable at this point in time.
--- NOTE | 2024-03-19 12:41 | P.PN ---
Subjective Progress Note Date: 03/19/24 68-year-old office patient with active medical history of atherosclerotic heart disease post CABG, end-stage renal disease post renal transplant at [facility] over 10 years ago, chronic stage IIIb kidney disease, hypertension, hyperlipidemia, chronic neuropathy, obesity, obstructive sleep apnea, mild peripheral arterial disease, who was back at [facility] few months ago for worsening kidney function was hospitalized for few days. He was hospitalized on 02/15/2024 with acute respiratory failure secondary to left-sided pneumonia along with combination of heart failure left-sided pneumonia and A-fib with RVR also had acute kidney injury required dialysis for a few sessions the patient finally reversed. He has done well and is being treated for CHF, COPD, left-sided pneumonia and A-fib medication and adjustment was made patient currently be debilitated require oxygen and updraft treatment on the clock presented again to [facility] rehab for almost 10 days. He still not able to be fully independent the sister decided to bring him to our office with extra help Rosalba is regarding at this point the patient developed to have acute rectal bleeding claimed to be hemorrhoid with significant blood. Anticoagulation was held late yesterday and To be on hold. Patient become extremely confused with worsening mental status and worsening mentation ended up Bring him to the emergency department at [facility] via EMS for the above problem. Was unresponsive initially but continued to have significant dyspnea and worsening confusion Limited attempted to Cintron catheter for better watching his kidney function especially with IV diuretics patient become very combative confused delusional and having worsening mental status. Finding at this point again with EKG showing supraventricular tachycardia with pulse rate of 108 looks like A-fib or a flutter at this point. CAT scan of the brain did not show any acute bleed, chest x-ray showed moderate to marked of CHF significant interval worsening compared to the previous study before he left the hospital last time. Laboratory value showed hemoglobin of 8.2 which is close to his baseline blood gas showed significant hypoxia with carbon dioxide retention creatinine is up to 3.46 with bun at 75 with worsening compared to before GFR is down to 17. Metabolic symptoms patient be hospitalized will be seen neurology, nephrology, pulmonary and cardiology. 03/10/2024: The patient was admitted late last night he still in the ER hold for admission he continued to have significant altered mental status with severe encephalopathy not clear also kidney function is much worse with GFR down to 70, had anemia with hemoglobin at 7 continue to have tachycardia and patient was placed on amiodarone from his last admission along with part of the dose of metoprolol and Cardizem. Also patient had severe confusion, type 2 diabetes was better controlled and is not bleeding at this point half the dose of insulin is causing hypoglycemia which will be changed currently. The patient remained on r espiratory failure due to recurrent condition we will continue aggressive management continue gentle hydration progressive kidney failure at this point awaiting for nephrology consult if further decline in kidney function patient might require to go on hemodialysis. The patient mental status being awake there is no other significant or focalized problem consistent with neurological type disease with stroke or mini stroke but this is more encephalopathy related to his metabolic problem, hypoxia, hypoglycemia and other. 03/13/2024: Through the weekend patient remain on IV drip at 10 mg an hour making enough urine also remain on oral amiodarone and oral Cardizem for A-fib with RVR, continue higher flow O2. Hemoglobin remained at 7.2 did not require any transfusion BUN is up to 80 with creatinine 2.49 blood sugar remained quite bit high remain on 5 units of NovoLog AC meals plus sliding scales still on 15 units of Levemir which simply cannot be increased at this point. Continue to be emmie ched and managed by nephrology, pulmonary and cardiology at this point patient still in the ICU currently will be transferable hopefully within the next 24 hours. 03/14/2024: He is feeling better so far Was on BiPAP for few hours overnight only, he is off vasopressor, still on IV Lasix drip at 10 mg an hour, BUN is down 73 with creatinine 2.8 slight improvement so far hemoglobin is 7.2. Still in A-fib with amiodarone and metoprolol currently and continue Cardizem CD2 140 mg daily. Blood sugar brown still fluctuating and adjustment of insulin was made which is not enough so far will go higher on Levemir to 40 units twice a day also NovoLog will be up to 20 units 3 times a day besides sliding scales. Patient started eating more expect hyperglycemia more than hypoglycemia at this point. Nephrology standpoint for still believe that acute kidney injury was secondary to cardiorenal syndrome continue to take Lasix drip patient renal function is improving gradually no sign of obstruction and the patient's creatinine baseline runs around 1.8 close to stage IIIb chronic kidney disease continue current management to help the kidney function. Apparently Zaroxolyn was added at 5 mg a day to improve diuretics effect. With the A-fib and tachycardia on metoprolol was increased up to 100 mg twice a day. 03/15/2024: He is sitting in the chair off BiPAP he is breathing a lot easier, significant improvement in kidney function compared to before, Still in the ICU still seen by pulmonary on more regular basis. Blood sugars running slightly went up will titrate medication today. Creatinine is down to 2.68 compared to 2.8 yesterday with GFR is up to 24, white blood cell still low at 3.8 hemoglobin 7 platelet count 139. With nephrology no need for dialysis at this point and hopefully patient will improve gradually just avoid any nephrotoxic agent despite that patient remain on Lasix drip at 10 mg an hour and Zaroxolyn 5 mg a day which had helped his anasarca quite bit. For the blood sugar patient is almost 2/3 of the dose he was on at home and the blood sugars are still around 200. 03/16/2024: Was transferred out of the ICU yesterday has been feeling slightly better is more clear mentally still comfortably in bed has not done much physical therapy, creatinine has improved significantly in the last few days. His pulse rate has improved some and remain on amiodarone 200 mg daily along with Cardizem CD 240 mg daily also still on metoprolol tartrate 100 mg twice a day. Still on Lasix IV drip 10 mg an hour which seem to diurese really well with it his edema has been much better since. Patient does not require any hemodialysis at this point, respiratory failure improved significantly. Has not done any physical therapy which we will start today as well hopefully p eunice for patient moving to [facility] tomorrow or day after tomorrow. 03/17/2024: Still on Lasix drip 10 mg an hour and still on Zaroxolyn 5 mg daily which had helped his fluid overload requirement his kidney function level at 2.55 creatinine so far not improving from [place]. His mobility has improved some according to physical therapy but patient is not stable. I had long discussion with the niece who is the guardian they have concerned about him going back home and not going to SNF but apparently patient did not qualify for SNF because he was able to walk independently more than expected. The largest picture although he is medically not stable and still have a lot of comorbidity and not safe being home by himself. Also the niece expressed that patient apparently has been having delusion and hallucination seeing people in the room and children walking around his bed all the time. Will request neurology to evaluate the patient again today he was evaluated early and all his symptoms were at the time more metabolic based with the severity of his hypoxia and kidney failure causing problem. 03/18. Patient seen and examined. Patient is alert sitting up in the chair, states he feels much better. Able to obtain a good conversation. 03/19. Patient seen and examined. Blood work done this morning showed WBC 7.1, hemoglobin 8.6, platelet count 181, sodium 138, potassium 3.2, BUN 91, creatinine 2.53 REVIEW OF SYSTEMS: CONSTITUTIONAL: No fever, no malaise,. CARDIOVASCULAR: No chest pain, no palpitations, no syncope. PULMONARY: No shortness of breath, no cough, GASTROINTESTINAL: No diarrhea, no nausea, no vomiting, no abdominal pain. NEUROLOGICAL: No headaches, no weakness, PHYSICAL EXAMINATION: GENERAL: The patient is alert, not in any acute distress. Well developed, well nourished. HEENT: Pupils are round and equally reacting to light. EOMI. No scleral icterus. No conjunctival pallor. Normocephalic, atraumatic. No pharyngeal erythema. No thyromegaly. CARDIOVASCULAR: S1 and S2 present. No murmurs, rubs, or gallops. PULMONARY: Chest is clear to auscultation, no wheezing or crackles. ABDOMEN: Soft, nontender, nondistended, normoactive bowel sounds. No palpable organomegaly. MUSCULOSKELETAL: No joint swelling or deformity. EXTREMITIES: No cyanosis, clubbing, or pedal edema. NEUROLOGICAL: Gross neurological examination did not reveal any focal deficits. SKIN: No rashes. Assessment and plan Acute hypoxemic respiratory failure Altered mental status Acute metabolic encephalopathy: Monitor vital signs Monitor CBC Monitor CMP Aggressive bronchopulmonary hygiene Continue IV Lasix 60 mg every 8 Potassium replacement Cardiology following Acute kidney injury with worsening kidney function Heart failure with a preserved ejection fraction Severe anasarca and fluid overload: Strict I's and O's Daily weights Continue IV Lasix 60 mg every 8 Nephrology following _A-fib with RVR: Continue amiodarone 200 mg daily along with Cardizem CD 240 mg a day and metoprolol up to 100 mg twice a day, continue Eliquis. Cardiology following _Coronary artery disease post bypass surgery from 2019 has not had any chest pain or angina and even if there is a complaint so far patient is not in any condition to go for an intervention. _GI bleed mostly severe hemorrhoid not significant drop in hemoglobin. Monitor CBC _Type 2 diabetes not well-controlled noncompliance to medication has been mostly on Lantus 70 units daily along with NovoLog 35 units AC meals plus sliding scales coverage. Titrate insulin as needed. _End-stage renal disease posttransplant remain on antirejection drugs continue mycophenolate acid along with Prograf and still on prednisone 5 mg daily. Nephrology following _Hypertension: Remain on diltiazem CD 240 mg a day, metoprolol 100 mg twice a day. _Hyperlipidemia: Has been on Lipitor 40 mg a day currently medication. _BPH watch for any urinary retention. _Anticoagulation: Continue Eliquis Labs and medication were reviewed.. Continue same treatment. Continue with symptomatic treatment. Resume home medication. Monitor labs and vitals. DVT and GI prophylaxis. Further recommendations as per clinical course of the patient Dictation was produced using [employer] dictation software. please excuse any grammatical, word or spelling errors. Objective - Vital Signs Vital signs: Vital Signs Temp 98.4 F 03/19/24 08:00 Pulse 126 H 03/19/24 08:35 Resp 16 03/19/24 08:00 BP 124/71 03/19/24 08:00 Pulse Ox 99 03/19/24 08:13 FiO2 40 03/15/24 00:09 Intake & Output 03/18/24 03/19/24 03/19/24 18:59 06:59 18:59 Intake Total 800 480 Balance 800 480 Weight 87.8 kg Intake: Oral 800 480 Other: Voiding Method Indwelling Catheter Indwelling Catheter - Labs CBC & Chem 7: 03/19/24 06:41 03/19/24 06:41 Labs: Abnormal Lab Results - Last 24 Hours (Table) 03/17/24 03/18/24 03/18/24 Range/Units 09:55 12:02 16:57 RBC (4.30-5.90) m/uL Hgb (13.0-17.5) gm/dL Hct (39.0-53.0) % RDW (11.5-15.5) % Potassium (3.5-5.1) mmol/L Chloride (98-107) mmol/L Carbon Dioxide (22-30) mmol/L BUN (9-20) mg/dL Creatinine (0.66-1.25) mg/dL Glucose (74-99) mg/dL POC Glucose (mg/dL) 162 H 324 H (70-110) mg/dL Total Protein (6.3-8.2) g/dL Albumin (3.5-5.0) g/dL Tacrolimus 4.6 L (5.0-20.0) ng/mL 03/18/24 03/19/24 03/19/24 Range/Units 20:01 06:10 06:41 RBC 3.25 L (4.30-5.90) m/uL Hgb 9.6 L (13.0-17.5) gm/dL Hct 31.1 L (39.0-53.0) % RDW 16.1 H (11.5-15.5) % Potassium (3.5-5.1) mmol/L Chloride (98-107) mmol/L Carbon Dioxide (22-30) mmol/L BUN (9-20) mg/dL Creatinine (0.66-1.25) mg/dL Glucose (74-99) mg/dL POC Glucose (mg/dL) 321 H 148 H (70-110) mg/dL Total Protein (6.3-8.2) g/dL Albumin (3.5-5.0) g/dL Tacrolimus (5.0-20.0) ng/mL 03/19/24 Range/Units 06:41 RBC (4.30-5.90) m/uL Hgb (13.0-17.5) gm/dL Hct (39.0-53.0) % RDW (11.5-15.5) % Potassium 3.2 L (3.5-5.1) mmol/L Chloride 93 L (98-107) mmol/L Carbon Dioxide 39 H (22-30) mmol/L BUN 91 H (9-20) mg/dL Creatinine 2.53 H (0.66-1.25) mg/dL Glucose 121 H (74-99) mg/dL POC Glucose (mg/dL) (70-110) mg/dL Total Protein 5.8 L (6.3-8.2) g/dL Albumin 3.3 L (3.5-5.0) g/dL Tacrolimus (5.0-20.0) ng/mL
[2024-03-19] MEDS: METOPROLOL TARTRATE 50 MG TAB PO STA (15:54)
[2024-03-19 16:36] LABS: Glucose,Whole Blood 186 mg/dL (70-110)
[2024-03-19 20:14] LABS: Glucose,Whole Blood 240 mg/dL (70-110)
--- NOTE | 2024-03-19 20:23 | P.PN ---
Subjective Progress Note Date: 03/19/24 SOB The patient is a 68-year-old gentleman with a past medical history significant for CAD status post CABG as well as history of heart failure with a preserved ejection fraction and also atrial fibrillation and valvular heart disease status post aortic valve replacement and hypertension and dyslipidemia and renal transplant as well as multiple comorbid conditions who was admitted to the hospital with acute hypoxic respiratory failure associated with change in mental status. March 11, 2024 The patient was seen and evaluated this morning. He is lethargic. He continues to be on BiPAP. The echo showed normal LV systolic function with bioprosthetic aortic valve and a peak gradient of about 20 mmHg across the valve. Currently he is on dobutamine. I am going to stop the dobutamine in the light of the patient having normal LV systolic function and beside that he is hemodynamically stable as [id number] currently he is somewhat tachycardic. He continues to be on IV diuretics. Creatinine remains elevated. the examination is remarkable for change in mental status with a stable vital signs besides tachycardia and regular rate and rhythm and systolic murmur and diminished breathing sounds bilaterally and no edema was noted in the lower extremities March 12, 2024 The patient was seen and evaluated this morning. He is mentation has improved somewhat. He remains hemodynamically stable beside being slightly tachycardic. He is on amiodarone and he is on Cardizem and beside that I am going to start the patient on small dose of beta-amy with metoprolol and uptitrate the dose if the pressure permits. He still in overt heart failure with bilateral lower extremities edema and he is still hypoxic requiring BiPAP. No symptoms of chest pain or chest discomfort. He is on oral anticoagulation. He was started on Lasix drip by the nephrology service. The examination is remarkable for regular rhythm with sinus tachycardia and diminished breathing sounds bilaterally and moderate bilateral lower extremities edema 03/13/2024 Patient is seen and examined at bedside this a.m. On telemetry patient is in sinus tachycardia, heart rate 120 bpm. Normotensive. On exam Patient still appears volume overloaded with 3+ pitting edema in bilateral lower extremity. He has elevated JVD, crackles in bilateral lung gage with poor inspiratory effort. Abdomen is nondistended. S1-S2 audible, no murmurs appreciated. 03/14/24 And is seen and examined at bedside this a.m. He is sitting in a chair comfortable position. He denies any active chest pain chest pressure. She will reports significant fatigue and shortness of breath with minimal exertion. On patient still appears volume overloaded with 2+ pitting edema in bilateral lower extremity. Swelling in lower extremities slightly better as compared to yesterday. He has had good urine output with metolazone and IV Lasix drip. He has crackles in bilateral lung gage with poor inspiratory effort, abdomen is nondistended, S1-S2 is audible, no murmurs appreciated Labs shows hemoglobin 7.2, hemoglobin is stable at 7.2. BUN 73 slightly better as compared to before, kidney function is improving creatinine 2.8 slightly better as compared to before 03/15/2024 Blood pressure 116/66, heart rate 125 bpm, sinus tachycardia. Other differential includes atrial flutter. On review of telemetry it appears likely to be sinus tachycardia. Hemoglobin 7.0, hemoglobin has trended down slowly since admission. On admission Will 8.2. BUN 78, creatinine 2.68. Creatinine is slowly improved over the last few days. On admission it was 4.1 Patient had 2 L urine output yesterday. March 16, 2024 Hemoglobin due to blood transfusion yesterday. Since then he is feeling much more awake and alert. His hemoglobin is 8.5 today. His creatinine is continue to improve. Today's creatinine is 2.5. He continues to be maintained on IV L asix drip. March 17, 2024 patient's hemoglobin is stable. Kidney function has stayed stable. He is currently on IV Lasix drip with good urine output. Heart rates are better controlled on higher dose of metoprolol March 18, 2024 Blood pressure 95/68, heart rate 120 bpm. Patient continues to be in atrial fibrillation RVR. Hemoglobin 8.5. No further drop in hemoglobin noticed after 1 unit of blood transfusion. No active signs of bleeding. BUN 90, creatinine 2.5. Lasix drip has been discontinued and started on IV push Lasix 60 mg every 8 hours. He is maintained on metolazone. Urine output of 1700 mL over last 24 hours. March 19, 2024 Patient is sustaining to be in atrial flutter with heart rate around 120 bpm. This has not got better with high doses of Cardizem. I have sequentially increased his metoprolol. He has had cardioversion done once in the past. Assessment Acute hypoxic respiratory failure Heart failure with a preserved ejection fraction Atrial fibrillation with RVR Acute on chronic anemia Change in mental status Renal failure and history of renal transplant Valvular heart disease as described above Multiple comorbid conditions Plan Lasix 60 mg IV 3 times a day, metolazone 5 mg. Currently on Eliquis 2.5. Will continue Eliquis and monitor hemoglobin. His last iron study shows that his ferritin is high with low iron binding capacity suggestive of anemia of chronic disease and CKD Increase metoprolol to 150 mg twice daily. Continue Cardizem CD 240 daily Amiodarone 200 mg daily, Eliquis 2.5 mg, aspirin 81 mg, atorvastatin 40 mg Consider evaluating for cardioversion to get him out of atrial flutter. He has high chances of reverting back to atrial flutter. He has had atrial flutter cardioversion done not long ago. Patient has shown slow clinical improvement. Still appears mildly volume loaded. Good urine output. Objective - Vital Signs Vital signs: Vital Signs Temp 99.6 F 03/19/24 15:50 Pulse 127 H 03/19/24 15:50 Resp 16 03/19/24 15:50 BP 98/60 03/19/24 15:50 Pulse Ox 99 03/19/24 15:50 FiO2 40 03/15/24 00:09 Intake & Output 03/19/24 03/19/24 03/20/24 06:59 18:59 06:59 Intake Total 480 480 Output Total 1700 Balance 480 -1220 Weight 87.8 kg Intake: IV 0 Sodium Chloride 0.9% 1, 0 000 ml @ 20 mls/hr IV . Q24H [facility] Rx#:[id number] Oral 480 480 Output: Urine 1700 Other: Voiding Method Indwelling Catheter Indwelling Catheter - Labs CBC & Chem 7: 03/19/24 06:41 03/19/24 06:41 Labs: Abnormal Lab Results - Last 24 Hours (Table) 03/19/24 03/19/24 03/19/24 Range/Units 06:10 06:41 06:41 RBC 3.25 L (4.30-5.90) m/uL Hgb 9.6 L (13.0-17.5) gm/dL Hct 31.1 L (39.0-53.0) % RDW 16.1 H (11.5-15.5) % Potassium 3.2 L (3.5-5.1) mmol/L Chloride 93 L (98-107) mmol/L Carbon Dioxide 39 H (22-30) mmol/L BUN 91 H (9-20) mg/dL Creatinine 2.53 H (0.66-1.25) mg/dL Glucose 121 H (74-99) mg/dL POC Glucose (mg/dL) 148 H (70-110) mg/dL Total Protein 5.8 L (6.3-8.2) g/dL Albumin 3.3 L (3.5-5.0) g/dL 03/19/24 03/19/24 03/19/24 Range/Units 11:36 16:35 20:13 RBC (4.30-5.90) m/uL Hgb (13.0-17.5) gm/dL Hct (39.0-53.0) % RDW (11.5-15.5) % Potassium (3.5-5.1) mmol/L Chloride (98-107) mmol/L Carbon Dioxide (22-30) mmol/L BUN (9-20) mg/dL Creatinine (0.66-1.25) mg/dL Glucose (74-99) mg/dL POC Glucose (mg/dL) 200 H 186 H 240 H (70-110) mg/dL Total Protein (6.3-8.2) g/dL Albumin (3.5-5.0) g/dL
[2024-03-19] MEDS: METOPROLOL TARTRATE 50 MG TAB PO SCH (20:51)
[2024-03-20 06:22] LABS: Glucose,Whole Blood 158 mg/dL (70-110)
[2024-03-20] MEDS: DILTIAZEM CD 180 MG CAP.ER.24H PO SCH (08:34)
[2024-03-20] MEDS: FUROSEMIDE 80 MG TAB PO SCH (08:34)
--- NOTE | 2024-03-20 10:43 | P.PN ---
Subjective Patient is seen in follow-up for acute kidney injury on chronic kidney disease. Renal function stable. Changed from IV to oral Lasix today. Nonoliguric. Denies chest pain or shortness of breath. Vital signs are stable. General: No acute distress. HEENT: Head exam is unremarkable. On nasal cannula. LUNGS: No audible rhonchi or wheezes. HEART: Rate and Rhythm are regular. ABDOMEN: Nontender. EXTREMITITES: 1+ edema. Objective - Vital Signs Vital signs: Vital Signs Temp 97.8 F 03/20/24 08:00 Pulse 122 H 03/20/24 08:32 Resp 18 03/20/24 08:32 BP 107/59 03/20/24 08:00 Pulse Ox 95 03/20/24 08:15 FiO2 40 03/15/24 00:09 Intake & Output 03/19/24 03/20/24 03/20/24 18:59 06:59 18:59 Intake Total 480 400 720 Output Total 1700 1800 Balance -1220 -1400 720 Weight 87 kg Intake: IV 0 Sodium Chloride 0.9% 1, 0 000 ml @ 20 mls/hr IV . Q24H [facility] Rx#:[id number] Oral 480 400 720 Output: Urine 1700 1800 Other: Voiding Method Indwelling Catheter Indwelling Catheter - Labs CBC & Chem 7: 03/19/24 06:41 03/19/24 06:41 Labs: Abnormal Lab Results - Last 24 Hours (Table) 03/19/24 03/19/24 03/19/24 Range/Units 11:36 16:35 20:13 POC Glucose (mg/dL) 200 H 186 H 240 H (70-110) mg/dL 03/20/24 Range/Units 06:20 POC Glucose (mg/dL) 158 H (70-110) mg/dL Assessment and Plan Plan: Assessment: 1. Acute kidney injury secondary to ATN secondary to cardiorenal syndrome. Creatinine 4.1 yesterday and is stable at 2.53 as of yesterday. No hydronephrosis noted on ultrasound. 2. Chronic kidney disease stage IIIb with baseline creatinine 1.8-2. 3. Acute hypoxic respiratory failure. 4. Volume overload. Improving with diuresis. 5. Acute on chronic diastolic CHF and moderate mitral regurgitation. 6. Anemia of chronic kidney disease. Iron replete. On Aranesp. 7. Diabetes mellitus. 8. A-fib. 9. Hypertension with chronic kidney disease. Stable. 10. Hypervolemic hyponatremia. Improved. Plan: Maintain oral Lasix. Stop metolazone. Add SGLT2 inhibitor. Okay to DC Cintron catheter from nephrology standpoint. Low-salt diet and 1200 cc fluid restriction. Avoid nephrotoxins. Continue to monitor renal function and urine output. Maintain home antirejection medications. Tacrolimus level 4.6 dated March 17, 2024.
[2024-03-20 11:27] LABS: Glucose,Whole Blood 329 mg/dL (70-110)
[2024-03-20] MEDS: DAPAGLIFLOZIN PROPANEDIOL 5 MG TABLET PO SCH (12:01)
--- NOTE | 2024-03-20 14:15 | P.PN ---
Subjective Progress Note Date: 03/20/24 SOB The patient is a 68-year-old gentleman with a past medical history significant for CAD status post CABG as well as history of heart failure with a preserved ejection fraction and also atrial fibrillation and valvular heart disease status post aortic valve replacement and hypertension and dyslipidemia and renal transplant as well as multiple comorbid conditions who was admitted to the hospital with acute hypoxic respiratory failure associated with change in mental status. March 11, 2024 The patient was seen and evaluated this morning. He is lethargic. He continues to be on BiPAP. The echo showed normal LV systolic function with bioprosthetic aortic valve and a peak gradient of about 20 mmHg across the valve. Currently he is on dobutamine. I am going to stop the dobutamine in the light of the patient having normal LV systolic function and beside that he is hemodynamically stable as [id number] currently he is somewhat tachycardic. He continues to be on IV diuretics. Creatinine remains elevated. the examination is remarkable for change in mental status with a stable vital signs besides tachycardia and regular rate and rhythm and systolic murmur and diminished breathing sounds bilaterally and no edema was noted in the lower extremities March 12, 2024 The patient was seen and evaluated this morning. He is mentation has improved somewhat. He remains hemodynamically stable beside being slightly tachycardic. He is on amiodarone and he is on Cardizem and beside that I am going to start the patient on small dose of beta-amy with metoprolol and uptitrate the dose if the pressure permits. He still in overt heart failure with bilateral lower extremities edema and he is still hypoxic requiring BiPAP. No symptoms of chest pain or chest discomfort. He is on oral anticoagulation. He was started on Lasix drip by the nephrology service. The examination is remarkable for regular rhythm with sinus tachycardia and diminished breathing sounds bilaterally and moderate bilateral lower extremities edema 03/13/2024 Patient is seen and examined at bedside this a.m. On telemetry patient is in sinus tachycardia, heart rate 120 bpm. Normotensive. On exam Patient still appears volume overloaded with 3+ pitting edema in bilateral lower extremity. He has elevated JVD, crackles in bilateral lung gage with poor inspiratory effort. Abdomen is nondistended. S1-S2 audible, no murmurs appreciated. 03/14/24 And is seen and examined at bedside this a.m. He is sitting in a chair comfortable position. He denies any active chest pain chest pressure. She will reports significant fatigue and shortness of breath with minimal exertion. On patient still appears volume overloaded with 2+ pitting edema in bilateral lower extremity. Swelling in lower extremities slightly better as compared to yesterday. He has had good urine output with metolazone and IV Lasix drip. He has crackles in bilateral lung gage with poor inspiratory effort, abdomen is nondistended, S1-S2 is audible, no murmurs appreciated Labs shows hemoglobin 7.2, hemoglobin is stable at 7.2. BUN 73 slightly better as compared to before, kidney function is improving creatinine 2.8 slightly better as compared to before 03/15/2024 Blood pressure 116/66, heart rate 125 bpm, sinus tachycardia. Other differential includes atrial flutter. On review of telemetry it appears likely to be sinus tachycardia. Hemoglobin 7.0, hemoglobin has trended down slowly since admission. On admission Will 8.2. BUN 78, creatinine 2.68. Creatinine is slowly improved over the last few days. On admission it was 4.1 Patient had 2 L urine output yesterday. March 16, 2024 Hemoglobin due to blood transfusion yesterday. Since then he is feeling much more awake and alert. His hemoglobin is 8.5 today. His creatinine is continue to improve. Today's creatinine is 2.5. He continues to be maintained on IV L asix drip. March 17, 2024 patient's hemoglobin is stable. Kidney function has stayed stable. He is currently on IV Lasix drip with good urine output. Heart rates are better controlled on higher dose of metoprolol March 18, 2024 Blood pressure 95/68, heart rate 120 bpm. Patient continues to be in atrial fibrillation RVR. Hemoglobin 8.5. No further drop in hemoglobin noticed after 1 unit of blood transfusion. No active signs of bleeding. BUN 90, creatinine 2.5. Lasix drip has been discontinued and started on IV push Lasix 60 mg every 8 hours. He is maintained on metolazone. Urine output of 1700 mL over last 24 hours. March 19, 2024 Patient is sustaining to be in atrial flutter with heart rate around 120 bpm. This has not got better with high doses of Cardizem. I have sequentially increased his metoprolol. He has had cardioversion done once in the past. 03/20 Patient's heart rate is jumping up to the 120s sometimes higher. He denies having any chest pain or chest pressure. He states his breathing is better. Discussed case with Dr. Inocente Herrera and he will do MIHAELA and cardioversion tomorrow. Blood pressure 112/62, pulse ox 100% on 2 L nasal cannula. PHYSICAL EXAM: VITAL SIGNS: Reviewed. GENERAL: Well-developed in no acute distress. HEENT: Head is normocephalic. Pupils are equal, round. Sclerae anicteric. LUNGS: Respirations even and unlabored. Lungs diminished with crackles at the bases HEART: Irregular rate and rhythm. S1 and S2 heard. ABDOMEN: Soft. Nondistended. Nontender. EXTREMITIES: Peripheral pulses intact. 1+ bilateral lower extremity edema Assessment Acute hypoxic respiratory failure Heart failure with a preserved ejection fraction Atrial fibrillation with RVR Acute on chronic anemia Change in mental status Renal failure and history of renal transplant Valvular heart disease as described above Multiple comorbid conditions Plan Continue Lasix 80 mg oral twice daily Continue patient on amiodarone 200 mg daily, Eliquis 2.5 mg twice daily, aspirin 81 mg daily, Lipitor, Cardizem 180 mg twice daily, Lopressor 150 mg twice daily Farxiga 5 mg daily added by nephrology Patient will be scheduled for cardioversion and MIHAELA tomorrow with Dr. Inocente Herrera. Patient has shown slow clinical improvement. Still appears mildly volume loaded. Good urine output. Objective - Vital Signs Vital signs: Vital Signs Temp 97.8 F 03/20/24 08:00 Pulse 122 H 03/20/24 08:32 Resp 18 03/20/24 08:32 BP 107/59 03/20/24 08:00 Pulse Ox 95 03/20/24 08:15 FiO2 40 03/15/24 00:09 Intake & Output 03/19/24 03/20/24 03/20/24 18:59 06:59 18:59 Intake Total 480 400 720 Output Total 1700 1800 Balance -1220 -1400 720 Weight 87 kg Intake: IV 0 Sodium Chloride 0.9% 1, 0 000 ml @ 20 mls/hr IV . Q24H [facility] Rx#:[id number] Oral 480 400 720 Output: Urine 1700 1800 Other: Voiding Method Indwelling Catheter Indwelling Catheter Indwelling Catheter - Labs CBC & Chem 7: 03/19/24 06:41 03/19/24 06:41 Labs: Abnormal Lab Results - Last 24 Hours (Table) 03/19/24 03/19/24 03/19/24 Range/Units 11:36 16:35 20:13 POC Glucose (mg/dL) 200 H 186 H 240 H (70-110) mg/dL 03/20/24 Range/Units 06:20 POC Glucose (mg/dL) 158 H (70-110) mg/dL
--- NOTE | 2024-03-20 15:13 | P.PN ---
Subjective Progress Note Date: 03/20/24 Principal diagnosis: Acute diastolic congestive heart failure 68-year-old male who was recently inpatient here, for an episode of CHF, pneumonia, and atrial fibrillation with RVR. The patient was discharged from this hospital, and went to [facility]. He was discharged from [facility] on March 07. He was brought back to the hospital, by EMS, yesterday, March 09. He apparently was confused and very lethargic. He had lower extremity edema. He apparently was having difficulty breathing, and he could not be managed at home by his family, so EMS was called. The patient is seen today in the emergency department, room 5. He is currently on 3 L. He is very lethargic and somnolent. He had a blood gas showing a pO2 of 75, pCO2 of 55, pH is 7.31. His N-terminal proBNP was 7190. The patient's chest x-ray was consistent with CHF. My plan is to move the patient to the intensive care unit, start him on dobutamine, and BiPAP. He has been seen by cardiology already. On his last visit here, the patient did require a cardioversion for his atrial fibrillation, and, he received diuretics, and antibiotics. Current laboratory data includes a white count 6.62, hemoglobin 7.7, hematocrit 26.1, and a platelet count of 136,000. Sodium 139, potassium 5.2, chlorides 103, CO2 24, BUN 76, and creatinine 4.1. Glucose is 100. Calcium 9.3. Albumin is 3.3. Troponins were negative x 2. Chest x-ray is consistent with cardiomegaly, and CHF. Brain CT shows a 3.4 x 1.5 cm area in the lateral right middle cranial fossa, which is unchanged, and consistent with a previous infarct/encephalomalacia. 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 In addition, the patient has chronic vessel ischemic disease. Progress note dated March 11, 2024. 68-year-old male with a history of multiple medical problems, was seen yesterday in the emergency department. We moved him to the ICU and placed him on BiPAP, with settings of 12/5, and 40%. I also initially placed him on dobutamine at 5 mcg/kg/min. The patient is getting saline at 10 cc an hour. Off of BiPAP, he is on 4 L nasal cannula. Cardiology turned to dobutamine off given his normal ejection fraction. The patient be started on a Lasix drip at 10 mg an hour. Clinically, the patient looks better today than he did yesterday. He is much more awake and alert although his speech is a bit garbled. Current labs are good white count 6.3, hemoglobin 7.2, hematocrit 24.2, and a platelet count of 113,000. Sodium 132, potassium 4.9, chlorides 103, CO2 25, BUN 83, creatinine 3.76. Glucose is 236. Chest x-ray is improved. The patient's procalcitonin level was 0.15. The most recent N-terminal proBNP was 7190. Progress note dated March 12, 2024. 68-year-old male with a history of multiple medical problems including kidney transplantation, CABG/aortic valve replacement, pneumonia, CHF, atrial fibrillation, etc. The patient was recently inpatient here, and was discharged to a local [place] [facility]. After short period of time there, he was discharged home, but did poorly at home, and was brought back to the emergency room. Currently, he is on BiPAP, with settings of 12/5, 40%. He wore it all night. If he is not wearing BiPAP, he is on nasal O2 at between 3 to 4 L/min. The patient is getting saline at 10 cc an hour, and a Lasix drip at 10 mg an hour. White count is 5.5, hemoglobin 7.2, hematocrit 23.8, platelet count 134,000. Sodium 130, potassium 4.3, chlorides 102, CO2 25, BUN 80, creatinine 3.49. The patient's glucose is 313. Blood cultures are negative. Chest x-ray shows right lower lobe airspace opacities. There is cardiomegaly, and pulmonary vascular congestion. On 03/13/2024, the patient is being seen for a follow-up. The patient is currently in the intensive care unit for decompensated CHF and fluid overload. The patient is currently on 3 L of oxygen by nasal cannula. His chest x-ray still showing cardiomegaly and bilateral pleural effusion and pulmonary vessel congestion/edema. Most recent chest x-ray from this morning on 03/13/2024 and is consistent with pulmonary edema. The patient is currently off dobutamine and he is also off dopamine and the patient is currently on Lasix drip at 10 mg an hour. Urine output is adequate and the patient is in a negative fluid balance of 593 cc over the past 12 hours. His sodium is at 129, potassium is at 4.3, BUN is 78 with a creatinine of 3.05 and the patient's white cell count is 5.1 with a hemoglobin 7.2 and a platelet count of 130. He remains in atrial fibrillation. He is currently on amiodarone 200 mg p.o. daily and is also on metoprolol 25 mg p.o. 3 times daily. He remains on anticoagulation with Eliquis 2.5 mg p.o. twice a day and Cardizem CD2 40 mg p.o. daily. He remains on immunosuppression regarding his renal transplantation the patient remains on Prograf 4 mg daily and low-dose prednisone 5 mg p.o. daily. Awake and alert and communicating. No encephalopathy. On 03/14/2024, the patient is being seen for a follow-up. The patient is calm and comfortable on 40s of oxygen by nasal cannula. The patient remains on Lasix drip at 10 mg an hour. Fluid balance is -1.3 L over the past 24 hours. No significant respiratory distress. No cough or sputum production. No chest tightness or wheezing. The patient has a BUN of 73 with a creatinine of 2.8 and the renal function continues to improve. The sodium is at 134 with a potassium level of 4.1. The white cell count is at 4.8 with a hemoglobin 7.2 and a platelet count of 152. Remains on amiodarone 5 mg p.o. daily. Remains on metoprolol 25 mg p.o. 3 times daily. Remains on Cardizem to 40 mg p.o. daily. Remains on anticoagulation with Eliquis 2.5 mg p.o. twice a day. Remains on Lasix drip and Zaroxolyn was also added yesterday and the dose of 5 mg p.o. daily. Remains on immunosuppression regarding his renal transplantation. On 03/15/2024, the patient is being seen for a follow-up. This morning, the patient remains on Lasix drip at 10 mg an hour. He is producing excellent urine output and the patient's fluid balance is -2.6 L over the past 24 hours. Also on Zaroxolyn. He is on 4 L of O2 nasal cannula with a pulse ox of 95%. BUN is a 78 with a creatinine of 2.6 and a sodium levels at 133 and a potassium level is at 4.3. WBC count has 3.8 with a hemoglobin of 7 and a platelet count of 139. The patient has also been in atrial fibrillation and is currently tachycardic. He remains on metoprolol 50 mg p.o. twice a day. He is on Cardizem CD to 40 mg p.o. daily and he remains on anticoagulation with Eliquis 2.5 mg p.o. twice a day. He remains on 40 units of Levemir insulin twice a day and 20 units with meals of NovoLog. Awake and alert and communicating. No other new complaints otherwise for now. On today's evaluation of 04/02/2024, the patient is resting comfortably in bed. The patient remains on Lasix drip at 10 mg an hour. Fluid balance remains -1.2 L over the past 24 hours. The patient is calm and comfortable, still has lower extremity edema. Pulse ox 90% on 4 L of oxygen by nasal cannula. The white cell count is at 5.9 with a hemoglobin of 8.5 and a platelet count of 158. The patient was also noted to have a BUN of 80 with a creatinine of 2.51 and a sodium level of 132. Noted the patient has 30 and ongoing improvement in the renal function. Remains on anticoagulation with Eliquis 2.5 mg p.o. twice daily. Remains on amiodarone 200 mg p.o. daily. Remains on Cardizem CD to 40 mg p.o. daily metoprolol 100 mg p.o. twice a day for rate control. He does have underlying chronic atrial fibrillation. Remains on immunosuppression the patient remains on mycophenolate 720 mg p.o. twice a day and Prograf 4 mg p.o. daily and low-dose prednisone 5 mg p.o. daily. Remains on Zaroxolyn. Remains on insulin 40 units of Levemir twice a day and 20 units of NovoLog with meals. 03/17/2024, seen the patient for a follow-up. The patient continues to be on IV Lasix drip 10 mg an hour. Doing well and the patient remains in negative fluid balance. Continues to have some lower extremity edema. Oxygenation is stable and the patient was weaned down to 2 L of oxygen by nasal cannula and is raghu ntaining a pulse ox of 96%. He remains on Lasix at 10 mg an hour. Rest of the medication unchanged. He remains on Zaroxolyn 5 mg p.o. daily. His creatinine is stable today with a level of 2.55 which is essentially unchanged compared to yesterday. Sodium levels at 133 with a potassium level of 3.8, rest of the electrolytes are stable with a bicarb level of 33, WC count of 5.9 with a hemoglobin 8.5 and a platelet count of 140. Denies having any chest pain. He reports ongoing improvement. He was transferred out of the intensive care unit few days back and he is currently on the telemetry unit. On today's evaluation of 03/16/2024, the patient is being seen for a follow-up. The patient is doing well. No specific complaints. Oxygenation is stable and the patient is currently on 2 L of O2 nasal cannula. He was taken off the IV Lasix drip and the patient is currently receiving Lasix 60 mg IV every 8 hours. Fluid balance is still negative in the order of -4.8 L over the past 24 hours. Lower extremity edema is improving. The patient's blood work from today is still pending. Creatinine was stable from yesterday at 2.55 with a BUN of 90. Nephrology on the case. He remains on anticoagulation with Eliquis 2.5 mg p.o. twice a day. Remains on a combination metoprolol 100 mg twice daily and amiodarone 200 mg p.o. daily. He is on 5 mg of prednisone in addition to Prograf and mycophenolate. He remains on Zaroxolyn 5 mg p.o. daily. 03/19/2024, the patient is being seen for a follow-up. No specific complaints. The patient is currently on 2 L of oxygen by nasal cannula. The patient is on IV Lasix 60 mg every 8 hours and Zaroxolyn. Breathing is adequate. Blood work from today shows a creatinine of 2.5 with a BUN of 91 and the patient's creatinine has been stable. Sodium levels of 139, potassium 3.2, white cell count is at 7.0 with a hemoglobin 9.6. The patient's pulse ox 95% liters of oxygen by nasal cannula. No other significant events overnight. Lower extre mity edema is improving. The patient is on tacrolimus and Prograf. Patient was seen today on 03/20/2024, patient is feeling better, responding well to diuretics in the form of Lasix and Zaroxolyn. Less shortness of breath, hardly any cough, no wheezing, no chest pain no fever no chills no hemoptysis. Last chest x-ray from 03/16 clearly showed evidence of pulmonary edema and cardiomegaly. Today's blood sugar is 329, BNP is 4960, his BUN is in the range of 91 creatinine 2.53 yesterday. Objective - Vital Signs Vital signs: Vital Signs Temp 97.9 F 03/20/24 11:18 Pulse 126 H 03/20/24 13:35 Resp 16 03/20/24 11:18 BP 112/62 03/20/24 11:18 Pulse Ox 96 03/20/24 13:35 FiO2 40 03/15/24 00:09 Intake & Output 03/19/24 03/20/24 03/20/24 18:59 06:59 18:59 Intake Total 480 400 900 Output Total 1700 1800 900 Balance -1220 -1400 0 Weight 87 kg Intake: IV 0 Sodium Chloride 0.9% 1, 0 000 ml @ 20 mls/hr IV . Q24H [facility] Rx#:[id number] Oral 480 400 900 Output: Urine 1700 1800 900 Other: Voiding Method Indwelling Catheter Indwelling Catheter Indwelling Catheter # Voids 2 - Exam General: Reveals 68-year-old white male in no distress Skin: Skin is warm and dry and no rashes or lesions are noted. Eye: Pupils are equal, round and reactive to light, extra-ocular movements are intact; there is normal conjunctiva bilaterally. Ears, nose, mouth and throat: There are moist mucous membranes and no oral lesions. Neck: The neck is supple, there is no tenderness or JVD. Cardiovascular: There is a regular rate and rhythm. No murmur, rub or gallop is appreciated. Respiratory: Fine crackles at the bases no rhonchi no wheezes Gastrointestinal: Soft, non-distended, non-tender abdomen without masses or organomegaly noted. There is no rebound or guarding present. Bowel sounds are unremarkable. Back: There is no tenderness to palpation in the midline. There is no obvious deformity. Musculoskeletal: Normal ROM, no tenderness, There is no pedal edema. There is no calf tenderness or swelling. No cords were appreciated. Neurological: CN II-XII intact, Cranial nerves III through XII are intact. There are no obvious motor or sensory deficits. Coordination appears grossly intact. Speech is normal. Psychiatric: Cooperative, appropriate mood & affect, normal judgment. - Labs CBC & Chem 7: 03/19/24 06:41 03/19/24 06:41 Labs: Abnormal Lab Results - Last 24 Hours (Table) 03/19/24 03/19/24 03/20/24 Range/Units 16:35 20:13 06:20 POC Glucose (mg/dL) 186 H 240 H 158 H (70-110) mg/dL 03/20/24 Range/Units 11:25 POC Glucose (mg/dL) 329 H (70-110) mg/dL Assessment and Plan Assessment: Impression: Acute hypoxic respiratory failure secondary to acute diastolic congestive heart failure/pulmonary edema Acute pulmonary edema, Acute on chronic kidney injury. Mental status change, improved and the patient is awake and alert x 3 coronary artery disease, with previous bypass surgery in 2019 along with aortic valve replacement History of renal transplantation, [facility], 2012. Maintained on mycophenolate 720 mg p.o. twice a day Prograft 1 mg daily and prednisone 5 mg daily History of previous bypass grafting/AVR, [facility], 2018. Chronic atrial fibrillation/ A flutter with rapid ventricular response at time of admission the patient is S/P transesophageal echocardiogram, and cardioversion, February 17, 2024. Acute on top of chronic kidney disease, History of hypertension. COPD, from previous tobacco use. History of dyslipidemia. History of diabetes mellitus type II, Levemir 40 units BId and NovoLog 20 units with meals and SS History of gout. Obesity. Recommendation: Continue diuretics including Lasix and Zaroxolyn Continue to monitor daily labs and renal profile mostly Continue Cardizem metoprolol and amiodarone as well as Eliquis Continue oxygen and titrate accordingly Maintain in negative fluid balance if possible Will continue to follow Time with Patient: Less than 30
[2024-03-20 16:21] LABS: Glucose,Whole Blood 162 mg/dL (70-110)
[2024-03-20 20:09] LABS: Glucose,Whole Blood 203 mg/dL (70-110)
--- NOTE | 2024-03-21 05:36 | P.PN ---
Subjective Progress Note Date: 03/20/24 HISTORY OF PRESENT ILLNESS: 68-year-old office patient with active medical history of atherosclerotic heart disease post CABG, end-stage renal disease post renal transplant at [facility] over 10 years ago, chronic stage IIIb kidney disease, hypertension, hyperlipidemia, chronic neuropathy, obesity, obstructive sleep apnea, mild peripheral arterial disease, who was back at [facility] few months ago for worsening kidney function was hospitalized for few days. He was hospitalized on 02/15/2024 with acute respiratory failure secondary to left-sided pneumonia along with combination of heart failure left-sided pneumonia and A-fib with RVR also had acute kidney injury required dialysis for a few sessions the patient finally reversed. He has done well and is being treated for CHF, COPD, left-sided pneumonia and A-fib medication and adjustment was made patient currently be debilitated require oxygen and updraft treatment on the clock presented again to [facility] rehab for almost 10 days. He still not able to be fully independent the sister decided to bring him to our office with extra help Rosalba is regarding at this point the patient developed to have acute rectal bleeding claimed to be hemorrhoid with significant blood. Anticoagulation was held late yesterday and To be on hold. Patient become extremely confused with worsening mental status and worsening mentation ended up Bring him to the emergency department at [facility] via EMS for the above problem. Was unresponsive initially but continued to have significant dyspnea and worsening confusion Limited attempted to Cintron catheter for better watching his kidney function especially with IV diuretics patient become very combative confused delusional and having worsening mental status. Finding at this point again with EKG showing supraventricular tachycardia with pulse rate of 108 looks like A-fib or a flutter at this point. CAT scan of the brain did n ot show any acute bleed, chest x-ray showed moderate to marked of CHF significant interval worsening compared to the previous study before he left the hospital last time. Laboratory value showed hemoglobin of 8.2 which is close to his baseline blood gas showed significant hypoxia with carbon dioxide retention creatinine is up to 3.46 with bun at 75 with worsening compared to before GFR is down to 17. Metabolic symptoms patient be hospitalized will be seen neurology, nephrology, pulmonary and cardiology. 03/10/2024: The patient was admitted late last night he still in the ER hold for admission he continued to have significant altered mental status with severe encephalopathy not clear also kidney function is much worse with GFR down to 70, had anemia with hemoglobin at 7 continue to have tachycardia and patient was placed on amiodarone from his last admission along with part of the dose of metoprolol and Cardizem. Also patient had severe confusion, type 2 diabetes was better controlled and is not bleeding at this point half the dose of insulin is causing hypoglycemia which will be changed currently. The patient remained on respiratory failure due to recurrent condition we will continue aggressive management continue gentle hydration progressive kidney failure at this point awaiting for nephrology consult if further decline in kidney function patient might require to go on hemodialysis. The patient mental status being awake there is no other significant or focalized problem consistent with neurological type disease with stroke or mini stroke but this is more encephalopathy related to his metabolic problem, hypoxia, hypoglycemia and other. 03/13/2024: Through the weekend patient remain on IV drip at 10 mg an hour making enough urine also remain on oral amiodarone and oral Cardizem for A-fib with RVR, continue higher flow O2. Hemoglobin remained at 7.2 did not require any transfusion BUN is up to 80 with creatinine 2.49 blood sugar remained quite bit high remain on 5 units of NovoLog AC meals plus sliding scales still on 15 units of Levemir which simply cannot be increased at this point. Continue to be watched and managed by nephrology, pulmonary and cardiology at this point patient still in the ICU currently will be transferable hopefully within the next 24 hours. 03/14/2024: He is feeling better so far Was on BiPAP for few hours overnight only, he is off vasopressor, still on IV Lasix drip at 10 mg an hour, BUN is down 73 with creatinine 2.8 slight improvement so far hemoglobin is 7.2. Still in A-fib with amiodarone and metoprolol currently and continue Cardizem CD2 140 mg daily. Blood sugar brown still fluctuating and adjustment of insulin was made which is not enough so far will go higher on Levemir to 40 units twice a day also NovoLog will be up to 20 units 3 times a day besides sliding scales. Patient started eating more expect hyperglycemia more than hypoglycemia at this point. Nephrology standpoint for still believe that acute kidney injury was secondary to cardiorenal syndrome continue to take Lasix drip patient renal function is improving gradually no sign of obstruction and the patient's creatinine baseline runs around 1.8 close to stage IIIb chronic kidney disease continue current management to help the kidney function. Apparently Zaroxolyn was added at 5 mg a day to improve diuretics effect. With the A-fib and tachycardia on metoprolol was increased up to 100 mg twice a day. 03/15/2024: He is sitting in the chair off BiPAP he is breathing a lot easier, significant improvement in kidney function compared to before, Still in the ICU still seen by pulmonary on more regular basis. Blood sugars running slightly went up will titrate medication today. Creatinine is down to 2.68 compared to 2.8 yesterday with GFR is up to 24, white blood cell still low at 3.8 hemoglobin 7 platelet count 139. With nephrology no need for dialysis at this point and hopefully patient will improve gradually just avoid any nephrotoxic agent despite that patient remain on Lasix drip at 10 mg an hour and Zaroxolyn 5 mg a day which had helped his anasarca quite bit. For the blood sugar patient is almost 2/3 of the dose he was on at home and the blood sugars are still around 200. 03/16/2024: Was transferred out of the ICU yesterday has been feeling slightly better is more clear mentally still comfortably in bed has not done much physical therapy, creatinine has improved significantly in the last few days. His pulse rate has improved some and remain on amiodarone 200 mg daily along with Cardizem CD 240 mg daily also still on metoprolol tartrate 100 mg twice a day. Still on Lasix IV drip 10 mg an hour which seem to diurese really well with it his edema has been much better since. Patient does not require any hemodialysis at this point, respiratory failure improved significantly. Has not done any physical therapy which we will start today as well hopefully prepare for patient moving to [facility] tomorrow or day after tomorrow. 03/17/2024: Still on Lasix drip 10 mg an hour and still on Zaroxolyn 5 mg daily which had helped his fluid overload requirement his kidney function level at 2.55 creatinine so far not improving from Wilfred. His mobility has improved some according to physical therapy but patient is not stable. I had long discussion with the niece who is the guardian they have concerned about him going back home and not going to SNF but apparently patient did not qualify for SNF because he was able to walk independently more than expected. The largest picture although he is medically not stable and still have a lot of comorbidity and not safe being home by himself. Also the niece expressed that patient apparently has been having delusion and hallucination seeing people in the room and children walking around his bed all the time. Will request neurology to evaluate the patient again today he was evaluated early and all his symptoms were at the time more metabolic based with the severity of his hypoxia and kidney failure causing problem. 03/20/2024: Patient remain out of the ICU much of complaint, remain on Lasix IV 60 mg every 8 hours will switch from IV drip, his BUN still 91 with creatinine at 2.5, remain on Zaroxolyn 5 mg potassium is down to 3.2 on replacement therapy white blood cell at 7.0 with hemoglobin 9.6 does not require any transfusion. Continue to see nephrology daily for his stage IIIb chronic kidney disease with slightly but worsening kidney function. Apparently his Prograf dose was decreased and he is still on 1500 cc of fluid restriction nephrology planning to switch him to oral Lasix as early as today. Other than this patient has done very well still apparently did not require any further care left a consult for neurology on Wednesday patient was seen and evaluated for altered mental status was claimed to be due to metabolic encephalopathy and hypoglycemia with acute kidney injury and neurology asking if any further management need to be done as an outpatient was advised to follow-up with neurology as an outpatient as well. Change Lasix to oral Lasix 80 mg twice a day and metolazone will be stopped apparently nephrology agreed to add SGLT2 product and agree as well to DC Cintron catheter. Continue low-salt diet and 1200 cc fluid restriction. REVIEW OF SYSTEMS: CONSTITUTIONAL: Morbid obesity and mild respiratory distress. Severely confused. EYES: No icterus sclerae, no conjunctivitis. EARS, NOSE, MOUTH, THROAT, and FACE: No sore throat, lymphadenopathy, carotid bruits or deformity. RESPIRATORY: Positive shortness of breath cough or wheezes. CARDIOVASCULAR: Positive PND orthopnea palpitation. GASTROINTESTINAL: No Abd pain, Nausea or vomiting, no Diarrhea or constipation, No GI Bleed, no distention or masses. GENITOURINARY: No polyuria nocturia without any hematuria. INTEGUMENT/BREAST: Negative for any muscular injury with mild osteoarthritis.. HEMATOLOGIC/LYMPHATIC: Chronic anemia with no bleeding. MUSCULOSKELTAL: Negative for Myalgia or arthralgia. NEURLOGICAL: Severe confusion with significant lack of response at this point with worsening mental status. BEHAVIORAL/PSYCH: Negative. ENDOCRINE: Negative. PHYSICAL EXAMINATION: General Appearance: Overweight in mild respiratory distress. Neck HEENT: Supple, no lymphadenopathy, no thyroid enlargement, no carotid bruits. Lungs: Decreased breath sound bilaterally especially the left side with fine rhonchi positive crackles in the bases positive mild inspiratory expiratory wheezes. Chest Wall: Decreased expansion with deep inspiration no tenderness and no deformity was found on exam, no costochondral pain or discomfort. Heart: Irregular rate and rhythm, S1, S2 positive S3 positive PVCs. Back: Symmetric, no curvature, ROM normal, no CVA tenderness. Abdomen: Soft, non-tender, bowel sounds active all four quadrants, no masses, no organomegaly. Extremities: Extremities normal, atraumatic, no cyanosis positive edema. Pulses: 2+ and symmetric. Skin: Skin color, texture, tugor normal, no rashes or lesions. Neurologic: Alert oriented severe confusion cranial nerves II through XII intact, no motor deficit, no abnormal balance or gait. ASSESSMENT AND PLAN: _Acute respiratory failure: Is back on O2 only will require sleep study eventually probably CPAP. _Altered mental status: Was evaluated by neurology and found all the change more metabolic consistent with no acute finding continue to have symptoms might require an outpatient workup. _Acute kidney injury with worsening kidney function continue current management continue to watch kidney function creatinine is improving gradually with GFR of Is up to 24. C his creatinine plateau currently does not require any dialysis. _Severe anasarca and fluid overload: Switch Lasix to oral Lasix 80 mg twice a day and off Zaroxolyn today. _Congestive heart failure acute with mild exacerbation much better on current management. _A-fib with RVR: Pulse rate was much higher remain on amiodarone 200 mg daily along with Cardizem CD 240 mg a day and metoprolol up to 100 mg twice a day, pulse rate is better at this point still on anticoagulation. Pulse rate down to 98. _Coronary artery disease post bypass surgery from 2019 has not had any chest pain or angina and even if there is a complaint so far patient is not in any condition to go for an intervention. _GI bleed mostly severe hemorrhoid not significant drop in hemoglobin at this point but still at 8.2 will consult general surgery for checking his rectal area and terminal sigmoid. _Type 2 diabetes not well-controlled noncompliance to medication has been mostly on Lantus 70 units daily along with NovoLog 35 units AC meals plus sliding scales coverage. Titrate insulin as needed. Farxiga was added at 5 mg daily. _End-stage renal disease posttransplant remain on antirejection drugs will consult nephrology continue mycophenolate acid along with Prograf and still on prednisone 5 mg daily. With slightly worsening kidney function at this point with plateau with creatinine around 2.55. _Hypertension: Remain on diltiazem CD 240 mg a day, metoprolol 100 mg twice a day. _Hyperlipidemia: Has been on Lipitor 40 mg a day currently medication. _BPH watch for any urinary retention. _Anticoagulation: Was on Eliquis 2.5 mg twice a day hold medication at this point with the GI bleed is better. _GI prophylaxis: Patient be on Pepcid 20 mg daily. CODE STATUS: Full code. Discussion: Switch patient to oral furosemide, titrate mobility and see if the potential of sending patient home with help if he is not able to go to SNF. Objective - Vital Signs Vital signs: Vital Signs Temp 97.8 F 03/19/24 21:00 Pulse 122 H 03/20/24 05:15 Resp 16 03/20/24 05:15 BP 126/69 03/20/24 05:15 Pulse Ox 99 03/20/24 05:15 FiO2 40 03/15/24 00:09 Intake & Output 03/19/24 03/19/24 03/20/24 06:59 18:59 06:59 Intake Total 480 480 400 Output Total 1700 1200 Balance 480 -1220 -800 Weight 87.8 kg Intake: IV 0 Sodium Chloride 0.9% 1, 0 000 ml @ 20 mls/hr IV . Q24H [facility] Rx#:[id number] Oral 480 480 400 Output: Urine 1700 1200 Other: Voiding Method Indwelling Catheter Indwelling Catheter Indwelling Catheter - Labs CBC & Chem 7: 03/19/24 06:41 03/19/24 06:41 Labs: Abnormal Lab Results - Last 24 Hours (Table) 03/19/24 03/19/24 03/19/24 Range/Units 06:41 06:41 11:36 RBC 3.25 L (4.30-5.90) m/uL Hgb 9.6 L (13.0-17.5) gm/dL Hct 31.1 L (39.0-53.0) % RDW 16.1 H (11.5-15.5) % Potassium 3.2 L (3.5-5.1) mmol/L Chloride 93 L (98-107) mmol/L Carbon Dioxide 39 H (22-30) mmol/L BUN 91 H (9-20) mg/dL Creatinine 2.53 H (0.66-1.25) mg/dL Glucose 121 H (74-99) mg/dL POC Glucose (mg/dL) 200 H (70-110) mg/dL Total Protein 5.8 L (6.3-8.2) g/dL Albumin 3.3 L (3.5-5.0) g/dL 03/19/24/ Range/Units 16:35 20:13 RBC (4.30-5.90) m/uL Hgb (13.0-17.5) gm/dL Hct (39.0-53.0) % RDW (11.5-15.5) % Potassium (3.5-5.1) mmol/L Chloride (98-107) mmol/L Carbon Dioxide (22-30) mmol/L BUN (9-20) mg/dL Creatinine (0.66-1.25) mg/dL Glucose (74-99) mg/dL POC Glucose (mg/dL) 186 H 240 H (70-110) mg/dL Total Protein (6.3-8.2) g/dL Albumin (3.5-5.0) g/dL
[2024-03-21 05:51] LABS: Glucose,Whole Blood 82 mg/dL (70-110)
[2024-03-21] MEDS ORDERED: ETOMIDATE 2 MG/ML 10 ML VIAL ONE (07:13)
[2024-03-21] MEDS: BENZOCAINE SPRAY 1 CAN TOPICAL ONE (07:18)
[2024-03-21] MEDS: IV FLUID CONTINUATION 1,000 ML IV ONE (07:25)
--- NOTE | 2024-03-21 08:00 | ECHOT ---
TRANSESOPHAGEAL ECHOCARDIOGRAM INDICATIONS: Persistent atrial fibrillation. PROCEDURE: Transesophageal echo, indication to rule out intracardiac thrombus prior to cardioversion. PROCEDURE NOTE: After obtaining informed consent, transesophageal echocardiogram was performed in left lateral position using an Omniplane probe. Local and IV sedation were obtained by the garment folder. FINDINGS: 1. There was no intracardiac thrombus within the left atrium, right atrium, right ventricle, or left ventricle. 2. Left atrial appendage is fairly small, probably has been ligated at surgery. There is no thrombus within the left atrial appendage. Mitral valve shows severe mitral annular calcification with [id number] central mitral regurgitation. Aortic valve is a bioprosthetic valve. There is no evidence of aortic stenosis or regurgitation. 3. Aortic root measures within normal limits. There is biatrial enlargement. Right ventricle appears mildly dilated. 4. Left ventricle has normal size and systolic function with an ejection fraction of 60%. CONCLUSIONS: Normal LV systolic function. No intracardiac thrombus. Normally functioning bioprosthetic valve in aortic position. [id number] mitral regurgitation. MMODL / IJN: [id number] /
--- NOTE | 2024-03-21 09:57 | PCN ---
PROCEDURE NOTE CARDIOVERSION NOTE: INDICATION: Persistent atrial fibrillation. PROCEDURE: After obtaining informed consent, the patient was adequately anticoagulated with Eliquis. Intracardiac thrombus was ruled out for MIHAELA, and patient underwent cardioversion with 150 joules of synchronized DC current. He converted to sinus rhythm following a single shock. He will continue the anticoagulant that he is currently on. BRYCE / CHELSEAN: [id number] /
[2024-03-21 11:04] LABS: Anisocytosis Slight; HCT 27.1 % (39.0-53.0); HGB 8.2 gm/dL (13.0-17.5); Hypochromasia Marked; MCHC 30.2 g/dL (31.0-37.0); Mean Platelet Volume 8.5; Platelet Count 146 k/uL (150-450); RBC 2.83 m/uL (4.30-5.90); RDW 16.2 % (11.5-15.5); WBC 7.7 k/uL (3.8-10.6)
[2024-03-21 11:23] LABS: ALT 17 U/L (4-49); AST 18 U/L (17-59); African American GFR (CKD) 28 (>60 ml/min/1.73 sqM); Albumin 3.2 g/dL (3.5-5.0); Alkaline Phosphatase 72 U/L (38-126); Blood Urea Nitrogen 91 mg/dL (9-20); Chloride 90 mmol/L (98-107); Glucose 164 mg/dL (74-99); Non-African American GFR(CKD) 24 (>60 ml/min/1.73 sqM); Potassium 3.1 mmol/L (3.5-5.1); Sodium 134 mmol/L (137-145); Total Bilirubin 0.8 mg/dL (0.2-1.3); Total Protein 5.5 g/dL (6.3-8.2)
[2024-03-21 11:25] LABS: Glucose,Whole Blood 291 mg/dL (70-110)
[2024-03-21 11:29] LABS: Anion Gap 7 mmol/L
[2024-03-21 11:30] LABS: Carbon Dioxide 37 mmol/L (22-30)
--- NOTE | 2024-03-21 11:40 | P.PN ---
Subjective Patient is seen in follow-up for acute kidney injury on chronic kidney disease. Renal function stable. On oral Lasix. Nonoliguric. Denies chest pain or shortness of breath. Vital signs are stable. General: No acute distress. HEENT: Head exam is unremarkable. On nasal cannula. LUNGS: No audible rhonchi or wheezes. HEART: Rate and Rhythm are regular. ABDOMEN: Nontender. EXTREMITITES: 1+ edema. Objective - Vital Signs Vital signs: Vital Signs Temp 98.6 F 03/21/24 08:15 Pulse 72 03/21/24 08:47 Resp 16 03/21/24 08:15 BP 127/60 03/21/24 08:15 Pulse Ox 91 L 03/21/24 08:23 FiO2 40 03/15/24 00:09 Intake & Output 03/20/24 03/21/24 03/21/24 18:59 06:59 18:59 Intake Total 900 240 Output Total 900 Balance 0 240 Weight 86.9 kg Intake: IV 0 Oral 900 240 Output: Urine 900 Other: Voiding Method Indwelling Catheter Toilet Toilet # Voids 2 2 - Labs CBC & Chem 7: 03/21/24 10:14 03/21/24 10:14 Labs: Abnormal Lab Results - Last 24 Hours (Table) 03/20/24 03/20/24 03/21/24 Range/Units 16:19 20:07 10:14 RBC 2.83 L (4.30-5.90) m/uL Hgb 8.2 L (13.0-17.5) gm/dL Hct 27.1 L (39.0-53.0) % MCHC 30.2 L (31.0-37.0) g/dL RDW 16.2 H (11.5-15.5) % Plt Count 146 L (150-450) k/uL Sodium (137-145) mmol/L Potassium (3.5-5.1) mmol/L Chloride (98-107) mmol/L Carbon Dioxide (22-30) mmol/L BUN (9-20) mg/dL Creatinine (0.66-1.25) mg/dL Glucose (74-99) mg/dL POC Glucose (mg/dL) 162 H 203 H (70-110) mg/dL Total Protein (6.3-8.2) g/dL Albumin (3.5-5.0) g/dL 03/21/24 03/21/24 Range/Units 10:14 11:23 RBC (4.30-5.90) m/uL Hgb (13.0-17.5) gm/dL Hct (39.0-53.0) % MCHC (31.0-37.0) g/dL RDW (11.5-15.5) % Plt Count (150-450) k/uL Sodium 134 L (137-145) mmol/L Potassium 3.1 L (3.5-5.1) mmol/L Chloride 90 L (98-107) mmol/L Carbon Dioxide 37 H (22-30) mmol/L BUN 91 H (9-20) mg/dL Creatinine 2.65 H (0.66-1.25) mg/dL Glucose 164 H (74-99) mg/dL POC Glucose (mg/dL) 291 H (70-110) mg/dL Total Protein 5.5 L (6.3-8.2) g/dL Albumin 3.2 L (3.5-5.0) g/dL Assessment and Plan Plan: Assessment: 1. Acute kidney injury secondary to ATN secondary to cardiorenal syndrome. Creatinine 4.1 yesterday and is stable at 2.65 today. No hydronephrosis noted on ultrasound. 2. Chronic kidney disease stage IIIb with baseline creatinine 1.8-2. 3. Acute hypoxic respiratory failure. 4. Volume overload. Improving with diuresis. 5. Acute on chronic diastolic CHF and moderate mitral regurgitation. 6. Anemia of chronic kidney disease. Iron replete. On Aranesp. 7. Diabetes mellitus. 8. A-fib. 9. Hypertension with chronic kidney disease. Stable. 10. Hypervolemic hyponatremia. Stable. 11. Hypokalemia from diuresis. Plan: Maintain oral Lasix. Maintain SGLT2 inhibitor. Low-salt diet and 1200 cc fluid restriction. Replace potassium. Add maintenance potassium supplementation. Avoid nephrotoxins. Continue to monitor renal function and urine output. Maintain home antirejection medications. Tacrolimus level 4.6 dated March 17, 2024. Repeat BMP and magnesium level 2 to 3 days postdischarge. Follow-up outpatient in 1 week.
[2024-03-21] MEDS: POTASSIUM CHLORIDE ER 20 MEQ TAB.ER PO STA (12:18)
[2024-03-21] MEDS: METOPROLOL TARTRATE 25 MG TAB PO ONE (12:47)
--- NOTE | 2024-03-21 13:32 | P.PN ---
Subjective Progress Note Date: 03/21/24 Principal diagnosis: Acute diastolic congestive heart failure 68-year-old male who was recently inpatient here, for an episode of CHF, pneumonia, and atrial fibrillation with RVR. The patient was discharged from this hospital, and went to [facility]. He was discharged from [facility] on March 07. He was brought back to the hospital, by EMS, yesterday, March 09. He apparently was confused and very lethargic. He had lower extremity edema. He apparently was having difficulty breathing, and he could not be managed at home by his family, so EMS was called. The patient is seen today in the emergency department, room 5. He is currently on 3 L. He is very lethargic and somnolent. He had a blood gas showing a pO2 of 75, pCO2 of 55, pH is 7.31. His N-terminal proBNP was 7190. The patient's chest x-ray was consistent with CHF. My plan is to move the patient to the intensive care unit, start him on dobutamine, and BiPAP. He has been seen by cardiology already. On his last visit here, the patient did require a cardioversion for his atrial fibrillation, and, he received diuretics, and antibiotics. Current laboratory data includes a white count 6.62, hemoglobin 7.7, hematocrit 26.1, and a platelet count of 136,000. Sodium 139, potassium 5.2, chlorides 103, CO2 24, BUN 76, and creatinine 4.1. Glucose is 100. Calcium 9.3. Albumin is 3.3. Troponins were negative x 2. Chest x-ray is consistent with cardiomegaly, and CHF. Brain CT shows a 3.4 x 1.5 cm area in the lateral right middle cranial fossa, which is unchanged, and consistent with a previous infarct/encephalomalacia. 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 In addition, the patient has chronic vessel ischemic disease. Progress note dated March 11, 2024. 68-year-old male with a history of multiple medical problems, was seen yesterday in the emergency department. We moved him to the ICU and placed him on BiPAP, with settings of 12/5, and 40%. I also initially placed him on dobutamine at 5 mcg/kg/min. The patient is getting saline at 10 cc an hour. Off of BiPAP, he is on 4 L nasal cannula. Cardiology turned to dobutamine off given his normal ejection fraction. The patient be started on a Lasix drip at 10 mg an hour. Clinically, the patient looks better today than he did yesterday. He is much more awake and alert although his speech is a bit garbled. Current labs are good white count 6.3, hemoglobin 7.2, hematocrit 24.2, and a platelet count of 113,000. Sodium 132, potassium 4.9, chlorides 103, CO2 25, BUN 83, creatinine 3.76. Glucose is 236. Chest x-ray is improved. The patient's procalcitonin level was 0.15. The most recent N-terminal proBNP was 7190. Progress note dated March 12, 2024. 68-year-old male with a history of multiple medical problems including kidney transplantation, CABG/aortic valve replacement, pneumonia, CHF, atrial fibrillation, etc. The patient was recently inpatient here, and was discharged to a local retirement. After short period of time there, he was discharged home, but did poorly at home, and was brought back to the emergency room. Currently, he is on BiPAP, with settings of 12/5, 40%. He wore it all night. If he is not wearing BiPAP, he is on nasal O2 at between 3 to 4 L/min. The patient is getting saline at 10 cc an hour, and a Lasix drip at 10 mg an hour. White count is 5.5, hemoglobin 7.2, hematocrit 23.8, platelet count 134,000. Sodium 130, potassium 4.3, chlorides 102, CO2 25, BUN 80, creatinine 3.49. The patient's glucose is 313. Blood cultures are negative. Chest x-ray shows right lower lobe airspace opacities. There is cardiomegaly, and pulmonary vascular congestion. On 03/13/2024, the patient is being seen for a follow-up. The patient is currently in the intensive care unit for decompensated CHF and fluid overload. The patient is currently on 3 L of oxygen by nasal cannula. His chest x-ray still showing cardiomegaly and bilateral pleural effusion and pulmonary vessel congestion/edema. Most recent chest x-ray from this morning on 03/13/2024 and is consistent with pulmonary edema. The patient is currently off dobutamine and he is also off dopamine and the patient is currently on Lasix drip at 10 mg an hour. Urine output is adequate and the patient is in a negative fluid balance of 593 cc over the past 12 hours. His sodium is at 129, potassium is at 4.3, BUN is 78 with a creatinine of 3.05 and the patient's white cell count is 5.1 with a hemoglobin 7.2 and a platelet count of 130. He remains in atrial fibrillation. He is currently on amiodarone 200 mg p.o. daily and is also on metoprolol 25 mg p.o. 3 times daily. He remains on anticoagulation with Eliquis 2.5 mg p.o. twice a day and Cardizem CD2 40 mg p.o. daily. He remains on immunosuppression regarding his renal transplantation the patient remains on Prograf 4 mg daily and low-dose prednisone 5 mg p.o. daily. Awake and alert and communicating. No encephalopathy. On 03/14/2024, the patient is being seen for a follow-up. The patient is calm and comfortable on 40s of oxygen by nasal cannula. The patient remains on Lasix drip at 10 mg an hour. Fluid balance is -1.3 L over the past 24 hours. No significant respiratory distress. No cough or sputum production. No chest tightness or wheezing. The patient has a BUN of 73 with a creatinine of 2.8 and the renal function continues to improve. The sodium is at 134 with a potassium level of 4.1. The white cell count is at 4.8 with a hemoglobin 7.2 and a platelet count of 152. Remains on amiodarone 5 mg p.o. daily. Remains on metoprolol 25 mg p.o. 3 times daily. Remains on Cardizem to 40 mg p.o. daily. Remains on anticoagulation with Eliquis 2.5 mg p.o. twice a day. Remains on Lasix drip and Zaroxolyn was also added yesterday and the dose of 5 mg p.o. daily. Remains on immunosuppression regarding his renal transplantation. On 03/15/2024, the patient is being seen for a follow-up. This morning, the patient remains on Lasix drip at 10 mg an hour. He is producing excellent urine output and the patient's fluid balance is -2.6 L over the past 24 hours. Also on Zaroxolyn. He is on 4 L of O2 nasal cannula with a pulse ox of 95%. BUN is a 78 with a creatinine of 2.6 and a sodium levels at 133 and a potassium level is at 4.3. WBC count has 3.8 with a hemoglobin of 7 and a platelet count of 139. The patient has also been in atrial fibrillation and is currently tachycardic. He remains on metoprolol 50 mg p.o. twice a day. He is on Cardizem CD to 40 mg p.o. daily and he remains on anticoagulation with Eliquis 2.5 mg p.o. twice a day. He remains on 40 units of Levemir insulin twice a day and 20 units with meals of NovoLog. Awake and alert and communicating. No other new complaints otherwise for now. On today's evaluation of 04/02/2024, the patient is resting comfortably in bed. The patient remains on Lasix drip at 10 mg an hour. Fluid balance remains -1.2 L over the past 24 hours. The patient is calm and comfortable, still has lower extremity edema. Pulse ox 90% on 4 L of oxygen by nasal cannula. The white cell count is at 5.9 with a hemoglobin of 8.5 and a platelet count of 158. The patient was also noted to have a BUN of 80 with a creatinine of 2.51 and a sodium level of 132. Noted the patient has 30 and ongoing improvement in the renal function. Remains on anticoagulation with Eliquis 2.5 mg p.o. twice daily. Remains on amiodarone 200 mg p.o. daily. Remains on Cardizem CD to 40 mg p.o. daily metoprolol 100 mg p.o. twice a day for rate control. He does have underlying chronic atrial fibrillation. Remains on immunosuppression the patient remains on mycophenolate 720 mg p.o. twice a day and Prograf 4 mg p.o. daily and low-dose prednisone 5 mg p.o. daily. Remains on Zaroxolyn. Remains on insulin 40 units of Levemir twice a day and 20 units of NovoLog with meals. 03/17/2024, seen the patient for a follow-up. The patient continues to be on IV Lasix drip 10 mg an hour. Doing well and the patient remains in negative fluid balance. Continues to have some lower extremity edema. Oxygenation is stable and the patient was weaned down to 2 L of oxygen by nasal cannula and is raghu ntaining a pulse ox of 96%. He remains on Lasix at 10 mg an hour. Rest of the medication unchanged. He remains on Zaroxolyn 5 mg p.o. daily. His creatinine is stable today with a level of 2.55 which is essentially unchanged compared to yesterday. Sodium levels at 133 with a potassium level of 3.8, rest of the electrolytes are stable with a bicarb level of 33, WC count of 5.9 with a hemoglobin 8.5 and a platelet count of 140. Denies having any chest pain. He reports ongoing improvement. He was transferred out of the intensive care unit few days back and he is currently on the telemetry unit. On today's evaluation of 03/16/2024, the patient is being seen for a follow-up. The patient is doing well. No specific complaints. Oxygenation is stable and the patient is currently on 2 L of O2 nasal cannula. He was taken off the IV Lasix drip and the patient is currently receiving Lasix 60 mg IV every 8 hours. Fluid balance is still negative in the order of -4.8 L over the past 24 hours. Lower extremity edema is improving. The patient's blood work from today is still pending. Creatinine was stable from yesterday at 2.55 with a BUN of 90. Nephrology on the case. He remains on anticoagulation with Eliquis 2.5 mg p.o. twice a day. Remains on a combination metoprolol 100 mg twice daily and amiodarone 200 mg p.o. daily. He is on 5 mg of prednisone in addition to Prograf and mycophenolate. He remains on Zaroxolyn 5 mg p.o. daily. 03/19/2024, the patient is being seen for a follow-up. No specific complaints. The patient is currently on 2 L of oxygen by nasal cannula. The patient is on IV Lasix 60 mg every 8 hours and Zaroxolyn. Breathing is adequate. Blood work from today shows a creatinine of 2.5 with a BUN of 91 and the patient's creatinine has been stable. Sodium levels of 139, potassium 3.2, white cell count is at 7.0 with a hemoglobin 9.6. The patient's pulse ox 95% liters of oxygen by nasal cannula. No other significant events overnight. Lower extre mity edema is improving. The patient is on tacrolimus and Prograf. Patient was seen today on 03/20/2024, patient is feeling better, responding well to diuretics in the form of Lasix and Zaroxolyn. Less shortness of breath, hardly any cough, no wheezing, no chest pain no fever no chills no hemoptysis. Last chest x-ray from 03/16 clearly showed evidence of pulmonary edema and cardiomegaly. Today's blood sugar is 329, BNP is 4960, his BUN is in the range of 91 creatinine 2.53 yesterday. Reevaluate today on 03/21/2024, patient underwent cardioversion today for persistent atrial fibrillation, and this was successful. Patient converted to sinus rhythm following a single shock, he is continued on anticoagulation therapy, and he is presently feeling better. Patient had a MIHAELA, and intracardiac thrombus was ruled out prior to procedure WBC count today is 7.7 hemoglobin 8.2 basic metabolic profile is normal BUN is 91 creatinine 2.65. His Lasix dose was increased yesterday by cardiology. Objective - Vital Signs Vital signs: Vital Signs Temp 98.1 F 03/21/24 11:46 Pulse 72 03/21/24 08:47 Resp 16 03/21/24 11:46 BP 127/66 03/21/24 11:46 Pulse Ox 97 03/21/24 11:46 FiO2 40 03/15/24 00:09 Intake & Output 03/20/24 03/21/24 03/21/24 18:59 06:59 18:59 Intake Total 900 240 Output Total 900 Balance 0 240 Weight 86.9 kg Intake: Oral 900 240 Output: Urine 900 Other: Voiding Method Indwelling Catheter Toilet Toilet # Voids 2 2 - Exam General: Reveals 68-year-old white male in no distress, on 2 L nasal cannula with O2 saturation 97% Skin: Skin is warm and dry and no rashes or lesions are noted. Eye: Pupils are equal, round and reactive to light, extra-ocular movements are intact; there is normal conjunctiva bilaterally. Ears, nose, mouth and throat: There are moist mucous membranes and no oral les ions. Neck: The neck is supple, there is no tenderness or JVD. Cardiovascular: There is a regular rate and rhythm. No murmur, rub or gallop is appreciated. Respiratory: Minimal fine crackles at the bases Gastrointestinal: Soft, non-distended, non-tender abdomen without masses or organomegaly noted. There is no rebound or guarding present. Bowel sounds are unremarkable. Back: There is no tenderness to palpation in the midline. There is no obvious deformity. Musculoskeletal: Normal ROM, no tenderness, There is no pedal edema. There is no calf tenderness or swelling. No cords were appreciated. Neurological: CN II-XII intact, Cranial nerves III through XII are intact. There are no obvious motor or sensory deficits. Coordination appears grossly intact. Speech is normal. Psychiatric: Cooperative, appropriate mood & affect, normal judgment. - Labs CBC & Chem 7: 03/21/24 10:14 03/21/24 10:14 Labs: Abnormal Lab Results - Last 24 Hours (Table) 03/20/24 03/20/24 03/21/24 Range/Units 16:19 20:07 10:14 RBC 2.83 L (4.30-5.90) m/uL Hgb 8.2 L (13.0-17.5) gm/dL Hct 27.1 L (39.0-53.0) % MCHC 30.2 L (31.0-37.0) g/dL RDW 16.2 H (11.5-15.5) % Plt Count 146 L (150-450) k/uL Sodium (137-145) mmol/L Potassium (3.5-5.1) mmol/L Chloride (98-107) mmol/L Carbon Dioxide (22-30) mmol/L BUN (9-20) mg/dL Creatinine (0.66-1.25) mg/dL Glucose (74-99) mg/dL POC Glucose (mg/dL) 162 H 203 H (70-110) mg/dL Total Protein (6.3-8.2) g/dL Albumin (3.5-5.0) g/dL 03/21/24 03/21/24 Range/Units 10:14 11:23 RBC (4.30-5.90) m/uL Hgb (13.0-17.5) gm/dL Hct (39.0-53.0) % MCHC (31.0-37.0) g/dL RDW (11.5-15.5) % Plt Count (150-450) k/uL Sodium 134 L (137-145) mmol/L Potassium 3.1 L (3.5-5.1) mmol/L Chloride 90 L (98-107) mmol/L Carbon Dioxide 37 H (22-30) mmol/L BUN 91 H (9-20) mg/dL Creatinine 2.65 H (0.66-1.25) mg/dL Glucose 164 H (74-99) mg/dL POC Glucose (mg/dL) 291 H (70-110) mg/dL Total Protein 5.5 L (6.3-8.2) g/dL Albumin 3.2 L (3.5-5.0) g/dL Assessment and Plan Assessment: Impression: Acute hypoxic respiratory failure secondary to acute diastolic congestive heart failure/pulmonary edema Acute pulmonary edema, Acute on chronic kidney injury. Mental status change, improved and the patient is awake and alert x 3 coronary artery disease, with previous bypass surgery in 2019 along with aortic valve replacement History of renal transplantation, [facility], 2012. Maintained on mycophenolate 720 mg p.o. twice a day Prograft 1 mg daily and prednisone 5 mg daily History of previous bypass grafting/AVR, [facility], 2019. Chronic atrial fibrillation/ A flutter with rapid ventricular response at time of admission the patient is S/P transesophageal echocardiogram, and cardioversion, February 17, 2024. And status post cardioversion on 03/20/2024 Acute on top of chronic kidney disease, History of hypertension. COPD, from previous tobacco use. History of dyslipidemia. History of diabetes mellitus type II, Levemir 40 units BId and NovoLog 20 units with meals and SS History of gout. Obesity. Recommendation: Continue diuretics including Lasix and Zaroxolyn Continue to monitor daily labs and renal profile mostly Continue Cardizem metoprolol and amiodarone as well as Eliquis Continue oxygen and titrate accordingly Maintain in negative fluid balance if possible Will continue to follow Time with Patient: Less than 30
--- NOTE | 2024-03-21 13:33 | P.PN ---
Subjective Progress Note Date: 03/21/24 SOB The patient is a 68-year-old gentleman with a past medical history significant for CAD status post CABG as well as history of heart failure with a preserved ejection fraction and also atrial fibrillation and valvular heart disease status post aortic valve replacement and hypertension and dyslipidemia and renal transplant as well as multiple comorbid conditions who was admitted to the hospital with acute hypoxic respiratory failure associated with change in mental status. March 11, 2024 The patient was seen and evaluated this morning. He is lethargic. He continues to be on BiPAP. The echo showed normal LV systolic function with bioprosthetic aortic valve and a peak gradient of about 20 mmHg across the valve. Currently he is on dobutamine. I am going to stop the dobutamine in the light of the patient having normal LV systolic function and beside that he is hemodynamically stable as [id number] currently he is somewhat tachycardic. He continues to be on IV diuretics. Creatinine remains elevated. the examination is remarkable for change in mental status with a stable vital signs besides tachycardia and regular rate and rhythm and systolic murmur and diminished breathing sounds bilaterally and no edema was noted in the lower extremities March 12, 2024 The patient was seen and evaluated this morning. He is mentation has improved somewhat. He remains hemodynamically stable beside being slightly tachycardic. He is on amiodarone and he is on Cardizem and beside that I am going to start the patient on small dose of beta-amy with metoprolol and uptitrate the dose if the pressure permits. He still in overt heart failure with bilateral lower extremities edema and he is still hypoxic requiring BiPAP. No symptoms of chest pain or chest discomfort. He is on oral anticoagulation. He was started on Lasix drip by the nephrology service. The examination is remarkable for regular rhythm with sinus tachycardia and diminished breathing sounds bilaterally and moderate bilateral lower extremities edema 03/13/2024 Patient is seen and examined at bedside this a.m. On telemetry patient is in sinus tachycardia, heart rate 120 bpm. Normotensive. On exam Patient still appears volume overloaded with 3+ pitting edema in bilateral lower extremity. He has elevated JVD, crackles in bilateral lung gage with poor inspiratory effort. Abdomen is nondistended. S1-S2 audible, no murmurs appreciated. 03/14/24 And is seen and examined at bedside this a.m. He is sitting in a chair comfortable position. He denies any active chest pain chest pressure. She will reports significant fatigue and shortness of breath with minimal exertion. On patient still appears volume overloaded with 2+ pitting edema in bilateral lower extremity. Swelling in lower extremities slightly better as compared to yesterday. He has had good urine output with metolazone and IV Lasix drip. He has crackles in bilateral lung gage with poor inspiratory effort, abdomen is nondistended, S1-S2 is audible, no murmurs appreciated Labs shows hemoglobin 7.2, hemoglobin is stable at 7.2. BUN 73 slightly better as compared to before, kidney function is improving creatinine 2.8 slightly better as compared to before 03/15/2024 Blood pressure 116/66, heart rate 125 bpm, sinus tachycardia. Other differential includes atrial flutter. On review of telemetry it appears likely to be sinus tachycardia. Hemoglobin 7.0, hemoglobin has trended down slowly since admission. On admission Will 8.2. BUN 78, creatinine 2.68. Creatinine is slowly improved over the last few days. On admission it was 4.1 Patient had 2 L urine output yesterday. March 16, 2024 Hemoglobin due to blood transfusion yesterday. Since then he is feeling much more awake and alert. His hemoglobin is 8.5 today. His creatinine is continue to improve. Today's creatinine is 2.5. He continues to be maintained on IV L asix drip. March 17, 2024 patient's hemoglobin is stable. Kidney function has stayed stable. He is currently on IV Lasix drip with good urine output. Heart rates are better controlled on higher dose of metoprolol March 18, 2024 Blood pressure 95/68, heart rate 120 bpm. Patient continues to be in atrial fibrillation RVR. Hemoglobin 8.5. No further drop in hemoglobin noticed after 1 unit of blood transfusion. No active signs of bleeding. BUN 90, creatinine 2.5. Lasix drip has been discontinued and started on IV push Lasix 60 mg every 8 hours. He is maintained on metolazone. Urine output of 1700 mL over last 24 hours. March 19, 2024 Patient is sustaining to be in atrial flutter with heart rate around 120 bpm. This has not got better with high doses of Cardizem. I have sequentially increased his metoprolol. He has had cardioversion done once in the past. 03/20 Patient's heart rate is jumping up to the 120s sometimes higher. He denies having any chest pain or chest pressure. He states his breathing is better. Discussed case with Dr. Inocente Herrera and he will do MIHAELA and cardioversion tomorrow. Blood pressure 112/62, pulse ox 100% on 2 L nasal cannula. 03/21 This morning, patient underwent MIHAELA and Cardioversion with Dr. Herrera. MIHAELA revealed normal LV systolic function. No intracardiac thrombus. Normally functioning bioprosthetic valve in aortic position. Moderate to severe mitral regurgitation. Patient subsequently underwent cardioversion and remains in sinus rhythm at the time of this evaluation. Patient denies having lightheadedness or dizziness, no shortness of breath. Blood pressure 127/66, heart rate 72, pulse ox 97% on 2 L nasal cannula. Repeat blood work reveals hemoglobin of 8.2. BUN 91 creatinine 2.65. Potassium 3.1 and has been replaced. PHYSICAL EXAM: VITAL SIGNS: Reviewed. GENERAL: Well-developed in no acute distress. HEENT: Head is normocephalic. Pupils are equal, round. Sclerae anicteric. LUNGS: Respirations even and unlabored. Lungs diminished with crackles at the bases HEART: Irregular rate and rhythm. S1 and S2 heard. ABDOMEN: Soft. Nondistended. Nontender. EXTREMITIES: Peripheral pulses intact. 1+ bilateral lower extremity edema Assessment Acute hypoxic respiratory failure Heart failure with a preserved ejection fraction Atrial fibrillation with RVR, currently in sinus rhythm status post MIHAELA and cardioversion Acute on chronic anemia Change in mental status Renal failure and history of renal transplant Valvular heart disease as described above Multiple comorbid conditions Plan Continue Lasix 80 mg oral twice daily Continue patient on amiodarone 200 mg daily, Eliquis 2.5 mg twice daily, aspirin 81 mg daily, Lipitor, Cardizem 180 mg twice daily, Lopressor 150 mg twice daily Farxiga 5 mg daily added by nephrology Patient remains in sinus rhythm following cardioversion. Patient is cleared for discharge from cardiology and may follow-up with Dr. Inocente Herrera in 1 to 2 weeks. Nurse practitioner note has been reviewed, I agree with documented findings and plan of care. Patient was seen and examined. Objective - Vital Signs Vital signs: Vital Signs Temp 98.6 F 03/21/24 08:15 Pulse 72 03/21/24 08:47 Resp 16 06/18/24 08:15 BP 127/60 03/21/24 08:15 Pulse Ox 91 L 03/21/24 08:23 FiO2 40 03/15/24 00:09 Intake & Output 03/20/24 03/21/24 03/21/24 18:59 06:59 18:59 Intake Total 900 240 Output Total 900 Balance 0 240 Weight 86.9 kg Intake: IV 0 Oral 900 240 Output: Urine 900 Other: Voiding Method Indwelling Catheter Toilet Toilet # Voids 2 2 - Labs CBC & Chem 7: 03/21/24 10:14 03/21/24 10:14 Labs: Abnormal Lab Results - Last 24 Hours (Table) 03/20/24 03/20/24 03/21/24 Range/Units 16:19 20:07 10:14 RBC 2.83 L (4.30-5.90) m/uL Hgb 8.2 L (13.0-17.5) gm/dL Hct 27.1 L (39.0-53.0) % MCHC 30.2 L (31.0-37.0) g/dL RDW 16.2 H (11.5-15.5) % Plt Count 146 L (150-450) k/uL Sodium (137-145) mmol/L Potassium (3.5-5.1) mmol/L Chloride (98-107) mmol/L Carbon Dioxide (22-30) mmol/L BUN (9-20) mg/dL Creatinine (0.66-1.25) mg/dL Glucose (74-99) mg/dL POC Glucose (mg/dL) 162 H 203 H (70-110) mg/dL Total Protein (6.3-8.2) g/dL Albumin (3.5-5.0) g/dL 03/21/24 03/21/24 Range/Units 10:14 11:23 RBC (4.30-5.90) m/uL Hgb (13.0-17.5) gm/dL Hct (39.0-53.0) % MCHC (31.0-37.0) g/dL RDW (11.5-15.5) % Plt Count (150-450) k/uL Sodium 134 L (137-145) mmol/L Potassium 3.1 L (3.5-5.1) mmol/L Chloride 90 L (98-107) mmol/L Carbon Dioxide 37 H (22-30) mmol/L BUN 91 H (9-20) mg/dL Creatinine 2.65 H (0.66-1.25) mg/dL Glucose 164 H (74-99) mg/dL POC Glucose (mg/dL) 291 H (70-110) mg/dL Total Protein 5.5 L (6.3-8.2) g/dL Albumin 3.2 L (3.5-5.0) g/dL
[2024-03-21 16:28] LABS: Glucose,Whole Blood 344 mg/dL (70-110)
[2024-03-21 20:01] LABS: Glucose,Whole Blood 182 mg/dL (70-110)
[2024-03-22 00:01] LABS: Glucose,Whole Blood 119 mg/dL (70-110)
[2024-03-22 04:05] VITALS: RESP 16
--- NOTE | 2024-03-22 06:01 | P.PN ---
Subjective Progress Note Date: 03/21/24 HISTORY OF PRESENT ILLNESS: 68-year-old office patient with active medical history of atherosclerotic heart disease post CABG, end-stage renal disease post renal transplant at [facility] over 10 years ago, chronic stage IIIb kidney disease, hypertension, hyperlipidemia, chronic neuropathy, obesity, obstructive sleep apnea, mild peripheral arterial disease, who was back at [facility] few months ago for worsening kidney function was hospitalized for few days. He was hospitalized on 02/15/2024 with acute respiratory failure secondary to left-sided pneumonia along with combination of heart failure left-sided pneumonia and A-fib with RVR also had acute kidney injury required dialysis for a few sessions the patient finally reversed. He has done well and is being treated for CHF, COPD, left-sided pneumonia and A-fib medication and adjustment was made patient currently be debilitated require oxygen and updraft treatment on the clock presented again to [facility] rehab for almost 10 days. He still not able to be fully independent the sister decided to bring him to our office with extra help Rosalba is regarding at this point the patient developed to have acute rectal bleeding claimed to be hemorrhoid with significant blood. Anticoagulation was held late yesterday and To be on hold. Patient become extremely confused with worsening mental status and worsening mentation ended up Bring him to the emergency department at [facility] via EMS for the above problem. Was unresponsive initially but continued to have significant dyspnea and worsening confusion Limited attempted to Cintron catheter for better watching his kidney function especially with IV diuretics patient become very combative confused delusional and having worsening mental status. Finding at this point again with EKG showing supraventricular tachycardia with pulse rate of 108 looks like A-fib or a flutter at this point. CAT scan of the brain did n ot show any acute bleed, chest x-ray showed moderate to marked of CHF significant interval worsening compared to the previous study before he left the hospital last time. Laboratory value showed hemoglobin of 8.2 which is close to his baseline blood gas showed significant hypoxia with carbon dioxide retention creatinine is up to 3.46 with bun at 75 with worsening compared to before GFR is down to 17. Metabolic symptoms patient be hospitalized will be seen neurology, nephrology, pulmonary and cardiology. 03/10/2024: The patient was admitted late last night he still in the ER hold for admission he continued to have significant altered mental status with severe encephalopathy not clear also kidney function is much worse with GFR down to 70, had anemia with hemoglobin at 7 continue to have tachycardia and patient was placed on amiodarone from his last admission along with part of the dose of metoprolol and Cardizem. Also patient had severe confusion, type 2 diabetes was better controlled and is not bleeding at this point half the dose of insulin is causing hypoglycemia which will be changed currently. The patient remained on respiratory failure due to recurrent condition we will continue aggressive management continue gentle hydration progressive kidney failure at this point awaiting for nephrology consult if further decline in kidney function patient might require to go on hemodialysis. The patient mental status being awake there is no other significant or focalized problem consistent with neurological type disease with stroke or mini stroke but this is more encephalopathy related to his metabolic problem, hypoxia, hypoglycemia and other. 03/13/2024: Through the weekend patient remain on IV drip at 10 mg an hour making enough urine also remain on oral amiodarone and oral Cardizem for A-fib with RVR, continue higher flow O2. Hemoglobin remained at 7.2 did not require any transfusion BUN is up to 80 with creatinine 2.49 blood sugar remained quite bit high remain on 5 units of NovoLog AC meals plus sliding scales still on 15 units of Levemir which simply cannot be increased at this point. Continue to be watched and managed by nephrology, pulmonary and cardiology at this point patient still in the ICU currently will be transferable hopefully within the next 24 hours. 03/14/2024: He is feeling better so far Was on BiPAP for few hours overnight only, he is off vasopressor, still on IV Lasix drip at 10 mg an hour, BUN is down 73 with creatinine 2.8 slight improvement so far hemoglobin is 7.2. Still in A-fib with amiodarone and metoprolol currently and continue Cardizem CD2 140 mg daily. Blood sugar brown still fluctuating and adjustment of insulin was made which is not enough so far will go higher on Levemir to 40 units twice a day also NovoLog will be up to 20 units 3 times a day besides sliding scales. Patient started eating more expect hyperglycemia more than hypoglycemia at this point. Nephrology standpoint for still believe that acute kidney injury was secondary to cardiorenal syndrome continue to take Lasix drip patient renal function is improving gradually no sign of obstruction and the patient's creatinine baseline runs around 1.8 close to stage IIIb chronic kidney disease continue current management to help the kidney function. Apparently Zaroxolyn was added at 5 mg a day to improve diuretics effect. With the A-fib and tachycardia on metoprolol was increased up to 100 mg twice a day. 03/15/2024: He is sitting in the chair off BiPAP he is breathing a lot easier, significant improvement in kidney function compared to before, Still in the ICU still seen by pulmonary on more regular basis. Blood sugars running slightly went up will titrate medication today. Creatinine is down to 2.68 compared to 2.8 yesterday with GFR is up to 24, white blood cell still low at 3.8 hemoglobin 7 platelet count 139. With nephrology no need for dialysis at this point and hopefully patient will improve gradually just avoid any nephrotoxic agent despite that patient remain on Lasix drip at 10 mg an hour and Zaroxolyn 5 mg a day which had helped his anasarca quite bit. For the blood sugar patient is almost 2/3 of the dose he was on at home and the blood sugars are still around 200. 03/16/2024: Was transferred out of the ICU yesterday has been feeling slightly better is more clear mentally still comfortably in bed has not done much physical therapy, creatinine has improved significantly in the last few days. His pulse rate has improved some and remain on amiodarone 200 mg daily along with Cardizem CD 240 mg daily also still on metoprolol tartrate 100 mg twice a day. Still on Lasix IV drip 10 mg an hour which seem to diurese really well with it his edema has been much better since. Patient does not require any hemodialysis at this point, respiratory failure improved significantly. Has not done any physical therapy which we will start today as well hopefully prepare for patient moving to [facility] tomorrow or day after tomorrow. 03/17/2024: Still on Lasix drip 10 mg an hour and still on Zaroxolyn 5 mg daily which had helped his fluid overload requirement his kidney function level at 2.55 creatinine so far not improving from Wilfred. His mobility has improved some according to physical therapy but patient is not stable. I had long discussion with the niece who is the guardian they have concerned about him going back home and not going to SNF but apparently patient did not qualify for SNF because he was able to walk independently more than expected. The largest picture although he is medically not stable and still have a lot of comorbidity and not safe being home by himself. Also the niece expressed that patient apparently has been having delusion and hallucination seeing people in the room and children walking around his bed all the time. Will request neurology to evaluate the patient again today he was evaluated early and all his symptoms were at the time more metabolic based with the severity of his hypoxia and kidney failure causing problem. 03/20/2024: Patient remain out of the ICU much of complaint, remain on Lasix IV 60 mg every 8 hours will switch from IV drip, his BUN still 91 with creatinine at 2.5, remain on Zaroxolyn 5 mg potassium is down to 3.2 on replacement therapy white blood cell at 7.0 with hemoglobin 9.6 does not require any transfusion. Continue to see nephrology daily for his stage IIIb chronic kidney disease with slightly but worsening kidney function. Apparently his Prograf dose was decreased and he is still on 1500 cc of fluid restriction nephrology planning to switch him to oral Lasix as early as today. Other than this patient has done very well still apparently did not require any further care left a consult for neurology on Wednesday patient was seen and evaluated for altered mental status was claimed to be due to metabolic encephalopathy and hypoglycemia with acute kidney injury and neurology asking if any further management need to be done as an outpatient was advised to follow-up with neurology as an outpatient as well. Change Lasix to oral Lasix 80 mg twice a day and metolazone will be stopped apparently nephrology agreed to add SGLT2 product and agree as well to DC Cintron catheter. Continue low-salt diet and 1200 cc fluid restriction. 03/21/2024: The patient continues to have significant A-fib with RVR not controlled currently on medication and is going for transesophageal echocardiogram and will be going for cardioversion. Creatinine remained at 2.65 which seems plateaued at this point no further improvement, potassium still slightly above low with supportive and replacement care. Hemoglobin is down to 8.2 with platelet count at 146 no change. Remains on O2 pulmonary brown stable on current dose of O2 continue updraft treatment with DuoNeb along with Perforomist and still on small dose of prednisone for his dialysis mostly. Cardiology May 23 he had transesophageal echocardiogram came without any thrombus and ended up having low visual cardioversion successfully cardioverted the heart and remained in a pulse between 60 and 90. His vital signs are more stable afterward. Will continue amiodarone at 200 mg twice a day, Cardizem CD 180 mg 3 times a day and Lopressor 150 mg twice a day. He is back on Eliquis 2.5 mg twice a day as well. Discharge planning assessment from [facility] only when patient might be discharged to [facility]. REVIEW OF SYSTEMS: CONSTITUTIONAL: Morbid obesity and mild respiratory distress. Severely confused. EYES: No icterus sclerae, no conjunctivitis. EARS, NOSE, MOUTH, THROAT, and FACE: No sore throat, lymphadenopathy, carotid br uits or deformity. RESPIRATORY: Positive shortness of breath cough or wheezes. CARDIOVASCULAR: Positive PND orthopnea palpitation. GASTROINTESTINAL: No Abd pain, Nausea or vomiting, no Diarrhea or constipation, No GI Bleed, no distention or masses. GENITOURINARY: No polyuria nocturia without any hematuria. INTEGUMENT/BREAST: Negative for any muscular injury with mild osteoarthritis.. HEMATOLOGIC/LYMPHATIC: Chronic anemia with no bleeding. MUSCULOSKELTAL: Negative for Myalgia or arthralgia. NEURLOGICAL: Severe confusion with significant lack of response at this point with worsening mental status. BEHAVIORAL/PSYCH: Negative. ENDOCRINE: Negative. PHYSICAL EXAMINATION: General Appearance: Overweight in mild respiratory distress. Neck HEENT: Supple, no lymphadenopathy, no thyroid enlargement, no carotid bruits. Lungs: Decreased breath sound bilaterally especially the left side with fine rhonchi positive crackles in the bases positive mild inspiratory expiratory w heezes. Chest Wall: Decreased expansion with deep inspiration no tenderness and no deformity was found on exam, no costochondral pain or discomfort. Heart: Irregular rate and rhythm, S1, S2 positive S3 positive PVCs. Back: Symmetric, no curvature, ROM normal, no CVA tenderness. Abdomen: Soft, non-tender, bowel sounds active all four quadrants, no masses, no organomegaly. Extremities: Extremities normal, atraumatic, no cyanosis positive edema. Pulses: 2+ and symmetric. Skin: Skin color, texture, tugor normal, no rashes or lesions. Neurologic: Alert oriented severe confusion cranial nerves II through XII intact, no motor deficit, no abnormal balance or gait. ASSESSMENT AND PLAN: _Acute respiratory failure: Is back on O2 only will require sleep study eventually probably CPAP. _Acute kidney injury with worsening kidney function continue current management continue to watch kidney function creatinine is improving gradually with GFR of Is up to 24. his creatinine plateau currently does not require any dialysis. _A-fib with RVR: He ended up going for cardioversion after transesophageal echocardiogram, remain on Eliquis along with amiodarone 200 mg twice a day, diet and Cardizem 180 mg twice a day and Lopressor 150 mg twice a day. Pulse rate currently is under better control. _Altered mental status: Was evaluated by neurology and found all the change more metabolic consistent with no acute finding continue to have symptoms might require an outpatient workup. _Severe anasarca and fluid overload: Switch Lasix to oral Lasix 80 mg twice a day and off Zaroxolyn today. _Congestive heart failure acute with mild exacerbation much better on current management. _Coronary artery disease post bypass surgery from 2019 has not had any chest pain or angina and even if there is a complaint so far patient is not in any condition to go for an intervention. _GI bleed mostly severe hemorrhoid not significant drop in hemoglobin at this point but still at 8.2 will consult general surgery for checking his rectal area and terminal sigmoid. _Type 2 diabetes not well-controlled noncompliance to medication has been mostly on Lantus 70 units daily along with NovoLog 35 units AC meals plus sliding scales coverage. Titrate insulin as needed. Farxiga was added at 5 mg daily. Average blood sugar running in the 100 level. _End-stage renal disease posttransplant remain on antirejection drugs will consult nephrology continue mycophenolate acid along with Prograf and still on prednisone 5 mg daily. With slightly worsening kidney function at this point with plateau with creatinine around 2.55. _Hypertension: Remain on diltiazem CD 240 mg a day, metoprolol 100 mg twice a day. _Hyperlipidemia: Has been on Lipitor 40 mg a day currently medication. _BPH watch for any urinary retention. _Anticoagulation: Was on Eliquis 2.5 mg twice a day hold medication at this point with the GI bleed is better. _GI prophylaxis: Patient be on Pepcid 20 mg daily. CODE STATUS: Full code. Discussion: Patient had transesophageal echocardiogram along with cardioversion, pulse rate is under control, his medication for A-fib are slightly stable where he is today. Again look into discharge at this point to either going to SNF at [facility] or home with expert care. Objective - Vital Signs Vital signs: Vital Signs Temp 98.1 F 03/20/24 20:17 Pulse 99 03/21/24 04:40 Resp 16 03/21/24 04:40 BP 104/53 03/21/24 04:40 Pulse Ox 96 03/21/24 04:40 FiO2 40 03/15/24 00:09 Intake & Output 03/20/24 03/20/24 03/21/24 06:59 18:59 06:59 Intake Total 400 900 Output Total 1800 900 Balance -1400 0 Weight 87 kg 86.9 kg Intake: Oral 400 900 Output: Urine 1800 900 Other: Voiding Method Indwelling Catheter Indwelling Catheter Toilet # Voids 2 2 - Labs CBC & Chem 7: 03/21/24 10:14 03/21/24 10:14 Labs: Abnormal Lab Results - Last 24 Hours (Table) 03/20/24 03/20/24 03/20/24 Range/Units 06:20 11:25 16:19 POC Glucose (mg/dL) 158 H 329 H 162 H (70-110) mg/dL 03/20/24 Range/Units 20:07 POC Glucose (mg/dL) 203 H (70-110) mg/dL
[2024-03-22 06:03] LABS: Glucose,Whole Blood 80 mg/dL (70-110)
[2024-03-22 08:47] VITALS: BP 122/64; PULSE 59; TEMP 98
[2024-03-22] MEDS: POTASSIUM CHLORIDE ER 20 MEQ TAB.ER PO SCH (08:49)
[2024-03-22 11:30] LABS: Glucose,Whole Blood 151 mg/dL (70-110)
--- NOTE | 2024-03-22 11:47 | P.PN ---
Subjective Patient is seen in follow-up for acute kidney injury on chronic kidney disease. Renal function stable as of yesterday. On oral Lasix. Nonoliguric. Denies chest pain or shortness of breath. Vital signs are stable. General: No acute distress. HEENT: Head exam is unremarkable. On nasal cannula. LUNGS: No audible rhonchi or wheezes. HEART: Rate and Rhythm are regular. ABDOMEN: Nontender. EXTREMITITES: Trace edema. Objective - Vital Signs Vital signs: Vital Signs Temp 98.0 F 03/22/24 08:00 Pulse 59 L 03/22/24 08:00 Resp 16 03/22/24 08:00 BP 122/64 03/22/24 08:00 Pulse Ox 97 03/22/24 08:00 FiO2 40 03/15/24 00:09 Intake & Output 03/21/24 03/22/24 03/22/24 18:59 06:59 18:59 Intake Total 240 218 Balance 240 218 Weight 87.5 kg Intake: Oral 240 218 Other: Voiding Method Toilet Toilet Toilet # Voids 1 - Labs CBC & Chem 7: 03/21/24 10:14 03/21/24 10:14 Labs: Abnormal Lab Results - Last 24 Hours (Table) 03/21/24 03/21/24 03/21/24 Range/Units 16:25 19:59 23:59 POC Glucose (mg/dL) 344 H 182 H 119 H (70-110) mg/dL 03/22/24 Range/Units 11:28 POC Glucose (mg/dL) 151 H (70-110) mg/dL Assessment and Plan Plan: Assessment: 1. Acute kidney injury secondary to ATN secondary to cardiorenal syndrome. Creatinine 4.1 yesterday and is stable at yesterday. Today. No hydronephrosis noted on ultrasound. 2. Chronic kidney disease stage IIIb with baseline creatinine 1.8-2. 3. Acute hypoxic respiratory failure. 4. Volume overload. Improving with diuresis. 5. Acute on chronic diastolic CHF and moderate mitral regurgitation. 6. Anemia of chronic kidney disease. Iron replete. On Aranesp. 7. Diabetes mellitus. 8. A-fib. 9. Hypertension with chronic kidney disease. Stable. 10. Hypervolemic hyponatremia. Stable. 11. Hypokalemia from diuresis. Replaced. Plan: Maintain oral Lasix. Maintain SGLT2 inhibitor. Low-salt diet and 1200 cc fluid restriction. Maintain potassium supplementation. Avoid nephrotoxins. Continue to monitor renal function and urine output. Maintain home antirejection medications. Tacrolimus level 4.6 dated March 17. Repeat BMP and magnesium level 2 to 3 days postdischarge. Follow-up outpatient in 1 week.
[2024-03-22 11:50] LABS: Basophils % (A) 0 %; Eosinophils # (A) 0.2 k/uL (0-0.7); Eosinophils % (A) 2 %; HCT 28.4 % (39.0-53.0); HGB 8.7 gm/dL (13.0-17.5); Hypochromasia Moderate; Lymphocytes # (A) 1.1 k/uL (1.0-4.8); Lymphocytes % (A) 14 %; MCH 29.2 pg (25.0-35.0); MCHC 30.7 g/dL (31.0-37.0); Mean Platelet Volume 8.5; Monocytes # (A) 0.4 k/uL (0-1.0); Monocytes % (A) 6 %; Neutrophils # (A) 5.6 k/uL (1.3-7.7); Neutrophils % (A) 76 %; Platelet Count 149 k/uL (150-450); RBC 2.99 m/uL (4.30-5.90); WBC 7.4 k/uL (3.8-10.6)
[2024-03-22 12:04] LABS: ALT 16 U/L (4-49); AST 18 U/L (17-59); African American GFR (CKD) 22 (>60 ml/min/1.73 sqM); Albumin 3.4 g/dL (3.5-5.0); Alkaline Phosphatase 72 U/L (38-126); Anion Gap 6 mmol/L; Blood Urea Nitrogen 94 mg/dL (9-20); Calcium 9.4 mg/dL (8.4-10.2); Carbon Dioxide 39 mmol/L (22-30); Chloride 87 mmol/L (98-107); Glucose 134 mg/dL (74-99); Magnesium 1.7 mg/dL (1.6-2.3); Non-African American GFR(CKD) 19 (>60 ml/min/1.73 sqM); Potassium 3.5 mmol/L (3.5-5.1); Sodium 132 mmol/L (137-145); Total Bilirubin 0.6 mg/dL (0.2-1.3); Total Protein 5.7 g/dL (6.3-8.2)
--- NOTE | 2024-03-22 12:04 | P.PN ---
Subjective Progress Note Date: 03/22/24 Principal diagnosis: Acute diastolic congestive heart failure 68-year-old male who was recently inpatient here, for an episode of CHF, pneumonia, and atrial fibrillation with RVR. The patient was discharged from this hospital, and went to [facility]. He was discharged from [facility] on March 07. He was brought back to the hospital, by EMS, yesterday, March 09. He apparently was confused and very lethargic. He had lower extremity edema. He apparently was having difficulty breathing, and he could not be managed at home by his family, so EMS was called. The patient is seen today in the emergency department, room 5. He is currently on 3 L. He is very lethargic and somnolent. He had a blood gas showing a pO2 of 75, pCO2 of 55, pH is 7.31. His N-terminal proBNP was 7190. The patient's chest x-ray was consistent with CHF. My plan is to move the patient to the intensive care unit, start him on dobutamine, and BiPAP. He has been seen by cardiology already. On his last visit here, the patient did require a cardioversion for his atrial fibrillation, and, he received diuretics, and antibiotics. Current laboratory data includes a white count 6.62, hemoglobin 7.7, hematocrit 26.1, and a platelet count of 136,000. Sodium 139, potassium 5.2, chlorides 103, CO2 24, BUN 76, and creatinine 4.1. Glucose is 100. Calcium 9.3. Albumin is 3.3. Troponins were negative x 2. Chest x-ray is consistent with cardiomegaly, and CHF. Brain CT shows a 3.4 x 1.5 cm area in the lateral right middle cranial fossa, which is unchanged, and consistent with a previous infarct/encephalomalacia. 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 In addition, the patient has chronic vessel ischemic disease. Progress note dated March 11, 2024. 68-year-old male with a history of multiple medical problems, was seen yesterday in the emergency department. We moved him to the ICU and placed him on BiPAP, with settings of 12/5, and 40%. I also initially placed him on dobutamine at 5 mcg/kg/min. The patient is getting saline at 10 cc an hour. Off of BiPAP, he is on 4 L nasal cannula. Cardiology turned to dobutamine off given his normal ejection fraction. The patient be started on a Lasix drip at 10 mg an hour. Clinically, the patient looks better today than he did yesterday. He is much more awake and alert although his speech is a bit garbled. Current labs are good white count 6.3, hemoglobin 7.2, hematocrit 24.2, and a platelet count of 113,000. Sodium 132, potassium 4.9, chlorides 103, CO2 25, BUN 83, creatinine 3.76. Glucose is 236. Chest x-ray is improved. The patient's procalcitonin level was 0.15. The most recent N-terminal proBNP was 7190. Progress note dated March 12, 2024. 68-year-old male with a history of multiple medical problems including kidney transplantation, CABG/aortic valve replacement, pneumonia, CHF, atrial fibrillation, etc. The patient was recently inpatient here, and was discharged to a local correction. After short period of time there, he was discharged home, but did poorly at home, and was brought back to the emergency room. Currently, he is on BiPAP, with settings of 12/5, 40%. He wore it all night. If he is not wearing BiPAP, he is on nasal O2 at between 3 to 4 L/min. The patient is getting saline at 10 cc an hour, and a Lasix drip at 10 mg an hour. White count is 5.5, hemoglobin 7.2, hematocrit 23.8, platelet count 134,000. Sodium 130, potassium 4.3, chlorides 102, CO2 25, BUN 80, creatinine 3.49. The patient's glucose is 313. Blood cultures are negative. Chest x-ray shows right lower lobe airspace opacities. There is cardiomegaly, and pulmonary vascular congestion. On 03/13/2024, the patient is being seen for a follow-up. The patient is currently in the intensive care unit for decompensated CHF and fluid overload. The patient is currently on 3 L of oxygen by nasal cannula. His chest x-ray still showing cardiomegaly and bilateral pleural effusion and pulmonary vessel congestion/edema. Most recent chest x-ray from this morning on 03/13/2024 and is consistent with pulmonary edema. The patient is currently off dobutamine and he is also off dopamine and the patient is currently on Lasix drip at 10 mg an hour. Urine output is adequate and the patient is in a negative fluid balance of 593 cc over the past 12 hours. His sodium is at 129, potassium is at 4.3, BUN is 78 with a creatinine of 3.05 and the patient's white cell count is 5.1 with a hemoglobin 7.2 and a platelet count of 130. He remains in atrial fibrillation. He is currently on amiodarone 200 mg p.o. daily and is also on metoprolol 25 mg p.o. 3 times daily. He remains on anticoagulation with Eliquis 2.5 mg p.o. twice a day and Cardizem CD2 40 mg p.o. daily. He remains on immunosuppression regarding his renal transplantation the patient remains on Prograf 4 mg daily and low-dose prednisone 5 mg p.o. daily. Awake and alert and communicating. No encephalopathy. On 03/14/2024, the patient is being seen for a follow-up. The patient is calm and comfortable on 40s of oxygen by nasal cannula. The patient remains on Lasix drip at 10 mg an hour. Fluid balance is -1.3 L over the past 24 hours. No significant respiratory distress. No cough or sputum production. No chest tightness or wheezing. The patient has a BUN of 73 with a creatinine of 2.8 and the renal function continues to improve. The sodium is at 134 with a potassium level of 4.1. The white cell count is at 4.8 with a hemoglobin 7.2 and a platelet count of 152. Remains on amiodarone 5 mg p.o. daily. Remains on metoprolol 25 mg p.o. 3 times daily. Remains on Cardizem to 40 mg p.o. daily. Remains on anticoagulation with Eliquis 2.5 mg p.o. twice a day. Remains on Lasix drip and Zaroxolyn was also added yesterday and the dose of 5 mg p.o. daily. Remains on immunosuppression regarding his renal transplantation. On 03/15/2024, the patient is being seen for a follow-up. This morning, the patient remains on Lasix drip at 10 mg an hour. He is producing excellent urine output and the patient's fluid balance is -2.6 L over the past 24 hours. Also on Zaroxolyn. He is on 4 L of O2 nasal cannula with a pulse ox of 95%. BUN is a 78 with a creatinine of 2.6 and a sodium levels at 133 and a potassium level is at 4.3. WBC count has 3.8 with a hemoglobin of 7 and a platelet count of 139. The patient has also been in atrial fibrillation and is currently tachycardic. He remains on metoprolol 50 mg p.o. twice a day. He is on Cardizem CD to 40 mg p.o. daily and he remains on anticoagulation with Eliquis 2.5 mg p.o. twice a day. He remains on 40 units of Levemir insulin twice a day and 20 units with meals of NovoLog. Awake and alert and communicating. No other new complaints otherwise for now. On today's evaluation of 04/02/2024, the patient is resting comfortably in bed. The patient remains on Lasix drip at 10 mg an hour. Fluid balance remains -1.2 L over the past 24 hours. The patient is calm and comfortable, still has lower extremity edema. Pulse ox 90% on 4 L of oxygen by nasal cannula. The white cell count is at 5.9 with a hemoglobin of 8.5 and a platelet count of 158. The patient was also noted to have a BUN of 80 with a creatinine of 2.51 and a sodium level of 132. Noted the patient has 30 and ongoing improvement in the renal function. Remains on anticoagulation with Eliquis 2.5 mg p.o. twice daily. Remains on amiodarone 200 mg p.o. daily. Remains on Cardizem CD to 40 mg p.o. daily metoprolol 100 mg p.o. twice a day for rate control. He does have underlying chronic atrial fibrillation. Remains on immunosuppression the patient remains on mycophenolate 720 mg p.o. twice a day and Prograf 4 mg p.o. daily and low-dose prednisone 5 mg p.o. daily. Remains on Zaroxolyn. Remains on insulin 40 units of Levemir twice a day and 20 units of NovoLog with meals. 03/17/2024, seen the patient for a follow-up. The patient continues to be on IV Lasix drip 10 mg an hour. Doing well and the patient remains in negative fluid balance. Continues to have some lower extremity edema. Oxygenation is stable and the patient was weaned down to 2 L of oxygen by nasal cannula and is raghu ntaining a pulse ox of 96%. He remains on Lasix at 10 mg an hour. Rest of the medication unchanged. He remains on Zaroxolyn 5 mg p.o. daily. His creatinine is stable today with a level of 2.55 which is essentially unchanged compared to yesterday. Sodium levels at 133 with a potassium level of 3.8, rest of the electrolytes are stable with a bicarb level of 33, WC count of 5.9 with a hemoglobin 8.5 and a platelet count of 140. Denies having any chest pain. He reports ongoing improvement. He was transferred out of the intensive care unit few days back and he is currently on the telemetry unit. On today's evaluation of 03/16/2024, the patient is being seen for a follow-up. The patient is doing well. No specific complaints. Oxygenation is stable and the patient is currently on 2 L of O2 nasal cannula. He was taken off the IV Lasix drip and the patient is currently receiving Lasix 60 mg IV every 8 hours. Fluid balance is still negative in the order of -4.8 L over the past 24 hours. Lower extremity edema is improving. The patient's blood work from today is still pending. Creatinine was stable from yesterday at 2.55 with a BUN of 90. Nephrology on the case. He remains on anticoagulation with Eliquis 2.5 mg p.o. twice a day. Remains on a combination metoprolol 100 mg twice daily and amiodarone 200 mg p.o. daily. He is on 5 mg of prednisone in addition to Prograf and mycophenolate. He remains on Zaroxolyn 5 mg p.o. daily. 03/19/2024, the patient is being seen for a follow-up. No specific complaints. The patient is currently on 2 L of oxygen by nasal cannula. The patient is on IV Lasix 60 mg every 8 hours and Zaroxolyn. Breathing is adequate. Blood work from today shows a creatinine of 2.5 with a BUN of 91 and the patient's creatinine has been stable. Sodium levels of 139, potassium 3.2, white cell count is at 7.0 with a hemoglobin 9.6. The patient's pulse ox 95% liters of oxygen by nasal cannula. No other significant events overnight. Lower extre mity edema is improving. The patient is on tacrolimus and Prograf. Patient was seen today on 03/20/2024, patient is feeling better, responding well to diuretics in the form of Lasix and Zaroxolyn. Less shortness of breath, hardly any cough, no wheezing, no chest pain no fever no chills no hemoptysis. Last chest x-ray from 03/16 clearly showed evidence of pulmonary edema and cardiomegaly. Today's blood sugar is 329, BNP is 4960, his BUN is in the range of 91 creatinine 2.53 yesterday. Reevaluate today on 03/21/2024, patient underwent cardioversion today for persistent atrial fibrillation, and this was successful. Patient converted to sinus rhythm following a single shock, he is continued on anticoagulation therapy, and he is presently feeling better. Patient had a MIHAELA, and intracardiac thrombus was ruled out prior to procedure WBC count today is 7.7 hemoglobin 8.2 basic metabolic profile is normal BUN is 91 creatinine 2.65. His Lasix dose was increased yesterday by cardiology. Patient was seen today on 03/22/2024, patient is doing great, relatively asymptomatic, he feels much better today compared to how he felt on his initial presentation. Hardly any pulmonary symptoms. Denies any shortness of breath, denies any chest pain. Labs were reviewed, relatively normal CBC, no basic metabolic profile done today, last creatinine yesterday was 2.65 Objective - Vital Signs Vital signs: Vital Signs Temp 98.0 F 03/22/24 08:00 Pulse 59 L 03/22/24 08:00 Resp 16 03/22/24 08:00 BP 122/64 03/22/24 08:00 Pulse Ox 97 03/22/24 08:00 FiO2 40 03/15/24 00:09 Intake & Output 03/21/24 03/22/24 03/22/24 18:59 06:59 18:59 Intake Total 240 218 Balance 240 218 Weight 87.5 kg Intake: Oral 240 218 Other: Voiding Method Toilet Toilet Toilet # Voids 1 - Exam General: Reveals 68-year-old white male in no distress, on room air Skin: Skin is warm and dry and no rashes or lesions are noted. Eye: Pupils are equal, round and reactive to light, extra-ocular movements are intact; there is normal conjunctiva bilaterally. Ears, nose, mouth and throat: There are moist mucous membranes and no oral lesions. Neck: The neck is supple, there is no tenderness or JVD. Cardiovascular: There is a regular rate and rhythm. No murmur, rub or gallop is appreciated. Respiratory: Clear throughout no crackles rhonchi or wheezes Gastrointestinal: Soft, non-distended, non-tender abdomen without masses or organomegaly noted. There is no rebound or guarding present. Bowel sounds are unremarkable. Back: There is no tenderness to palpation in the midline. There is no obvious deformity. Musculoskeletal: Normal ROM, no tenderness, There is no pedal edema. There is no calf tenderness or swelling. No cords were appreciated. Neurological: CN II-XII intact, Cranial nerves III through XII are intact. There are no obvious motor or sensory deficits. Coordination appears grossly intact. Speech is normal. Psychiatric: Cooperative, appropriate mood & affect, normal judgment. - Labs CBC & Chem 7: 03/22/24 11:16 03/21/24 10:14 Labs: Abnormal Lab Results - Last 24 Hours (Table) 03/21/24 03/21/24 03/21/24 Range/Units 16:25 19:59 23:59 RBC (4.30-5.90) m/uL Hgb (13.0-17.5) gm/dL Hct (39.0-53.0) % MCHC (31.0-37.0) g/dL RDW (11.5-15.5) % Plt Count (150-450) k/uL POC Glucose (mg/dL) 344 H 182 H 119 H (70-110) mg/dL 03/22/24 03/22/24 Range/Units 11:16 11:28 RBC 2.99 L (4.30-5.90) m/uL Hgb 8.7 L (13.0-17.5) gm/dL Hct 28.4 L (39.0-53.0) % MCHC 30.7 L (31.0-37.0) g/dL RDW 16.0 H (11.5-15.5) % Plt Count 149 L (150-450) k/uL POC Glucose (mg/dL) 151 H (70-110) mg/dL Assessment and Plan Assessment: Impression: Acute hypoxic respiratory failure secondary to acute diastolic congestive heart failure/pulmonary edema Acute pulmonary edema, Acute on chronic kidney injury. Mental status change, improved and the patient is awake and alert x 3 coronary artery disease, with previous bypass surgery in 2019 along with aortic valve replacement History of renal transplantation, [facility], 2013. Maintained on mycophenolate 720 mg p.o. twice a day Prograft 1 mg daily and prednisone 5 mg daily History of previous bypass grafting/AVR, [facility], 2019. Chronic atrial fibrillation/ A flutter with rapid ventricular response at time of admission the patient is S/P transesophageal echocardiogram, and cardioversion, February 17, 2024. And status post cardioversion on 03/20/2024 Acute on top of chronic kidney disease, History of hypertension. COPD, from previous tobacco use. History of dyslipidemia. History of diabetes mellitus type II, Levemir 40 units BId and NovoLog 20 units with meals and SS History of gout. Obesity. Recommendation: Continue diuretics i Continue to monitor daily labs, if not discharged home today Continue Cardizem metoprolol and amiodarone as well as Eliquis Continue oxygen and titrate accordingly Will continue to follow Time with Patient: Less than 30
--- NOTE | 2024-03-22 15:42 | P.PN ---
Subjective Progress Note Date: 03/22/24 SOB The patient is a 68-year-old gentleman with a past medical history significant for CAD status post CABG as well as history of heart failure with a preserved ejection fraction and also atrial fibrillation and valvular heart disease status post aortic valve replacement and hypertension and dyslipidemia and renal transplant as well as multiple comorbid conditions who was admitted to the hospital with acute hypoxic respiratory failure associated with change in mental status. March 11, 2024 The patient was seen and evaluated this morning. He is lethargic. He continues to be on BiPAP. The echo showed normal LV systolic function with bioprosthetic aortic valve and a peak gradient of about 20 mmHg across the valve. Currently he is on dobutamine. I am going to stop the dobutamine in the light of the patient having normal LV systolic function and beside that he is hemodynamically stable as [id number] currently he is somewhat tachycardic. He continues to be on IV diuretics. Creatinine remains elevated. the examination is remarkable for change in mental status with a stable vital signs besides tachycardia and regular rate and rhythm and systolic murmur and diminished breathing sounds bilaterally and no edema was noted in the lower extremities March 12, 2024 The patient was seen and evaluated this morning. He is mentation has improved somewhat. He remains hemodynamically stable beside being slightly tachycardic. He is on amiodarone and he is on Cardizem and beside that I am going to start the patient on small dose of beta-amy with metoprolol and uptitrate the dose if the pressure permits. He still in overt heart failure with bilateral lower extremities edema and he is still hypoxic requiring BiPAP. No symptoms of chest pain or chest discomfort. He is on oral anticoagulation. He was started on Lasix drip by the nephrology service. The examination is remarkable for regular rhythm with sinus tachycardia and diminished breathing sounds bilaterally and moderate bilateral lower extremities edema 03/13/2024 Patient is seen and examined at bedside this a.m. On telemetry patient is in sinus tachycardia, heart rate 120 bpm. Normotensive. On exam Patient still appears volume overloaded with 3+ pitting edema in bilateral lower extremity. He has elevated JVD, crackles in bilateral lung gage with poor inspiratory effort. Abdomen is nondistended. S1-S2 audible, no murmurs appreciated. 03/14/24 And is seen and examined at bedside this a.m. He is sitting in a chair comfortable position. He denies any active chest pain chest pressure. She will reports significant fatigue and shortness of breath with minimal exertion. On patient still appears volume overloaded with 2+ pitting edema in bilateral lower extremity. Swelling in lower extremities slightly better as compared to yesterday. He has had good urine output with metolazone and IV Lasix drip. He has crackles in bilateral lung gage with poor inspiratory effort, abdomen is nondistended, S1-S2 is audible, no murmurs appreciated Labs shows hemoglobin 7.2, hemoglobin is stable at 7.2. BUN 73 slightly better as compared to before, kidney function is improving creatinine 2.8 slightly better as compared to before 03/15/2024 Blood pressure 116/66, heart rate 125 bpm, sinus tachycardia. Other differential includes atrial flutter. On review of telemetry it appears likely to be sinus tachycardia. Hemoglobin 7.0, hemoglobin has trended down slowly since admission. On admission Will 8.2. BUN 78, creatinine 2.68. Creatinine is slowly improved over the last few days. On admission it was 4.1 Patient had 2 L urine output yesterday. March 16, 2024 Hemoglobin due to blood transfusion yesterday. Since then he is feeling much more awake and alert. His hemoglobin is 8.5 today. His creatinine is continue to improve. Today's creatinine is 2.5. He continues to be maintained on IV L asix drip. March 17, 2024 patient's hemoglobin is stable. Kidney function has stayed stable. He is currently on IV Lasix drip with good urine output. Heart rates are better controlled on higher dose of metoprolol March 18, 2024 Blood pressure 95/68, heart rate 120 bpm. Patient continues to be in atrial fibrillation RVR. Hemoglobin 8.5. No further drop in hemoglobin noticed after 1 unit of blood transfusion. No active signs of bleeding. BUN 90, creatinine 2.5. Lasix drip has been discontinued and started on IV push Lasix 60 mg every 8 hours. He is maintained on metolazone. Urine output of 1700 mL over last 24 hours. March 19, 2024 Patient is sustaining to be in atrial flutter with heart rate around 120 bpm. This has not got better with high doses of Cardizem. I have sequentially increased his metoprolol. He has had cardioversion done once in the past. 03/20 Patient's heart rate is jumping up to the 120s sometimes higher. He denies having any chest pain or chest pressure. He states his breathing is better. Discussed case with Dr. Inocente Herrera and he will do MIHAELA and cardioversion tomorrow. Blood pressure 112/62, pulse ox 100% on 2 L nasal cannula. 03/21 This morning, patient underwent MIHAELA and Cardioversion with Dr. Herrera. MIHAELA revealed normal LV systolic function. No intracardiac thrombus. Normally functioning bioprosthetic valve in aortic position. Moderate to severe mitral regurgitation. Patient subsequently underwent cardioversion and remains in sinus rhythm at the time of this evaluation. Patient denies having lightheadedness or dizziness, no shortness of breath. Blood pressure 127/66, heart rate 72, pulse ox 97% on 2 L nasal cannula. Repeat blood work reveals hemoglobin of 8.2. BUN 91 creatinine 2.65. Potassium 3.1 and has been replaced. 03/22 Patient remains in a sinus rhythm and states that he feels better as his breathing seems to be better. Heart rate is in the 50s to 70s, blood pressure 122/64, pulse ox 97% on 2 L nasal cannula. Repeat blood work reveals hemoglobin of 8.7. BUN 94 creatinine 3.15. PHYSICAL EXAM: VITAL SIGNS: Reviewed. GENERAL: Well-developed in no acute distress. HEENT: Head is normocephalic. Pupils are equal, round. Sclerae anicteric. LUNGS: Respirations even and unlabored. Lungs diminished with crackles at the bases HEART: Irregular rate and rhythm. S1 and S2 heard. ABDOMEN: Soft. Nondistended. Nontender. EXTREMITIES: Peripheral pulses intact. 1+ bilateral lower extremity edema Assessment Acute hypoxic respiratory failure Heart failure with a preserved ejection fraction Atrial fibrillation with RVR, currently in sinus rhythm status post MIHAELA and cardioversion Acute on chronic anemia Change in mental status Renal failure and history of renal transplant Valvular heart disease as described above Multiple comorbid conditions Plan Continue Lasix 80 mg oral twice daily Continue patient on amiodarone 200 mg daily, Eliquis 2.5 mg twice daily, aspirin 81 mg daily, Lipitor, Cardizem 180 mg twice daily, Lopressor 150 mg twice daily Farxiga 5 mg daily added by nephrology Patient remains in sinus rhythm following cardioversion. Patient is cleared for discharge from cardiology and may follow-up with Dr. Inocente Herrera in 1 to 2 weeks. Nurse practitioner note has been reviewed, I agree with documented findings and plan of care. Patient was seen and examined. Objective - Vital Signs Vital signs: Vital Signs Temp 98.0 F 03/22/24 08:00 Pulse 59 L 03/22/24 08:00 Resp 16 03/22/24 08:00 BP 122/64 03/22/24 08:00 Pulse Ox 97 03/22/24 08:00 FiO2 40 03/15/24 00:09 Intake & Output 03/21/24 03/22/24 03/22/24 18:59 06:59 18:59 Intake Total 240 218 Balance 240 218 Weight 87.5 kg Intake: Oral 240 218 Other: Voiding Method Toilet Toilet Toilet # Voids 1 - Labs CBC & Chem 7: 03/22/24 11:16 03/22/24 11:16 Labs: Abnormal Lab Results - Last 24 Hours (Table) 03/21/24 03/21/24 03/21/24 Range/Units 16:25 19:59 23:59 POC Glucose (mg/dL) 344 H 182 H 119 H (70-110) mg/dL 03/22/24 Range/Units 11:28 POC Glucose (mg/dL) 151 H (70-110) mg/dL
--- NOTE | 2024-03-23 06:43 | P.DS ---
Providers Date of admission: 03/09/24 17:18 Expected date of discharge: 03/22/24 Attending physician: Mario Finley Consults: 03/09/24 17:15 Consult Physician Routine Consulting Provider: Marques Ly Consult Reason/Comments: hypoxia Do you want consulting provider notified?: Yes Consult Physician Routine Consulting Provider: Lew Ly Consult Reason/Comments: ams Do you want consulting provider notified?: Yes 03/09/24 23:19 Consult Physician Routine Consulting Provider: Xavi Lopez Consult Reason/Comments: CHF Do you want consulting provider notified?: Yes 03/09/24 23:20 Consult Physician Routine Consulting Provider: Heidi Hernandez Consult Reason/Comments: NATE Do you want consulting provider notified?: Yes 03/17/24 17:21 Consult Physician Routine Consulting Provider: Lew Ly Consult Reason/Comments: altered MS with delusion and worsening confusion. Do you want consulting provider notified?: Yes Primary care physician: Mario Finley [facility] Course: HISTORY OF PRESENT ILLNESS: 68-year-old office patient with active medical history of atherosclerotic heart disease post CABG, end-stage renal disease post renal transplant at [facility] over 10 years ago, chronic stage IIIb kidney disease, hypertension, hyperlipidemia, chronic neuropathy, obesity, obstructive sleep apnea, mild peripheral arterial disease, who was back at [facility] few months ago for worsening kidney function was hospitalized for few days. He was hospitalized on 02/15/2024 with acute respiratory failure secondary to left-sided pneumonia along with combination of heart failure left-sided pneumonia and A-fib with RVR also had acute kidney injury required dialysis for a few sessions the patient finally reversed. He has done well and is being treated for CHF, COPD, left-sided pneumonia and A-fib medication and adjustment was made patient currently be debilitated require oxygen and updraft treatment on the clock presented again to [facility] rehab for almost 10 days. He still not able to be fully independent the sister decided to bring him to our office with extra help Rosalba is regarding at this point the patient developed to have acute rectal bleeding claimed to be hemorrhoid with significant blood. Anticoagulation was held late yesterday and To be on hold. Patient become extremely confused with worsening mental status and worsening mentation ended up Bring him to the emergency department at [facility] via EMS for the above problem. Was unresponsive initially but continued to have significant dyspnea and worsening confusion Limited attempted to Cintron catheter for better watching his kidney function especially with IV diuretics patient become very combative confused delusional and having worsening mental status. Finding at this point again with EKG showing supraventricular tachycardia with pulse rate of 108 looks like A-fib or a flutter at this point. CAT scan of the brain did not show any acute bleed, chest x-ray showed moderate to marked of CHF significant interval worsening compared to the previous study before he left the hospital last time. Laboratory value showed hemoglobin of 8.2 which is close to his baseline blood gas showed significant hypoxia with carbon dioxide retention creatinine is up to 3.46 with bun at 75 with worsening compared to before GFR is down to 17. Metabolic symptoms patient be hospitalized will be seen neurology, nephrology, pulmonary and cardiology. 03/10/2024: The patient was admitted late last night he still in the ER hold for admission he continued to have significant altered mental status with severe encephalopathy not clear also kidney function is much worse with GFR down to 70, had anemia with hemoglobin at 7 continue to have tachycardia and patient was placed on amiodarone from his last admission along with part of the dose of metoprolol and Cardizem. Also patient had severe confusion, type 2 diabetes was better controlled and is not bleeding at this point half the dose of insulin is causing hypoglycemia which will be changed currently. The patient remained on respiratory failure due to recurrent condition we will continue aggressive management continue gentle hydration progressive kidney failure at this point awaiting for nephrology consult if further decline in kidney function patient might require to go on hemodialysis. The patient mental status being awake there is no other significant or focalized problem consistent with neurological type disease with stroke or mini stroke but this is more encephalopathy related to his metabolic problem, hypoxia, hypoglycemia and other. 03/13/2024: Through the weekend patient remain on IV drip at 10 mg an hour making enough urine also remain on oral amiodarone and oral Cardizem for A-fib with RVR, continue higher flow O2. Hemoglobin remained at 7.2 did not require any transfusion BUN is up to 80 with creatinine 2.49 blood sugar remained quite bit high remain on 5 units of NovoLog AC meals plus sliding scales still on 15 units of Levemir which simply cannot be increased at this point. Continue to be watched and managed by nephrology, pulmonary and cardiology at this point patient still in the ICU currently will be transferable hopefully within the next 24 hours. 03/14/2024: He is feeling better so far Was on BiPAP for few hours overnight only, he is off vasopressor, still on IV Lasix drip at 10 mg an hour, BUN is down 73 with creatinine 2.8 slight improvement so far hemoglobin is 7.2. Still in A-fib with amiodarone and metoprolol currently and continue Cardizem CD2 140 mg daily. Blood sugar brown still fluctuating and adjustment of insulin was made which is not enough so far will go higher on Levemir to 40 units twice a day also NovoLog will be up to 20 units 3 times a day besides sliding scales. Patient started eating more expect hyperglycemia more than hypoglycemia at this point. Nephrology standpoint for still believe that acute kidney injury was secondary to cardiorenal syndrome continue to take Lasix drip patient renal function is improving gradually no sign of obstruction and the patient's creatinine baseline runs around 1.8 close to stage IIIb chronic kidney disease continue current management to help the kidney function. Apparently Zaroxolyn was added at 5 mg a day to improve diuretics effect. With the A-fib and tachycardia on metoprolol was increased up to 100 mg twice a day. 03/15/2024: He is sitting in the chair off BiPAP he is breathing a lot easier, significant improvement in kidney function compared to before, Still in the ICU still seen by pulmonary on more regular basis. Blood sugars running slightly went up will titrate medication today. Creatinine is down to 2.68 compared to 2 .8 yesterday with GFR is up to 24, white blood cell still low at 3.8 hemoglobin 7 platelet count 139. With nephrology no need for dialysis at this point and hopefully patient will improve gradually just avoid any nephrotoxic agent despite that patient remain on Lasix drip at 10 mg an hour and Zaroxolyn 5 mg a day which had helped his anasarca quite bit. For the blood sugar patient is almost 2/3 of the dose he was on at home and the blood sugars are still around 200. 03/16/2024: Was transferred out of the ICU yesterday has been feeling slightly better is more clear mentally still comfortably in bed has not done much physical therapy, creatinine has improved significantly in the last few days. His pulse rate has improved some and remain on amiodarone 200 mg daily along with Cardizem CD 240 mg daily also still on metoprolol tartrate 100 mg twice a day. Still on Lasix IV drip 10 mg an hour which seem to diurese really well with it his edema has been much better since. Patient does not require any hemodialysis at this point, respiratory failure improved significantly. Has not done any physical therapy which we will start today as well hopefully prepare for patient moving to [facility] tomorrow or day after tomorrow. 03/17/2024: Still on Lasix drip 10 mg an hour and still on Zaroxolyn 5 mg daily which had helped his fluid overload requirement his kidney function level at 2.55 creatinine so far not improving from Wilfred. His mobility has improved some according to physical therapy but patient is not stable. I had long discussion with the niece who is the guardian they have concerned about him going back home and not going to SNF but apparently patient did not qualify for SNF because he was able to walk independently more than expected. The largest picture although he is medically not stable and still have a lot of comorbidity and not safe being home by himself. Also the niece expressed that patient apparently has been having delusion and hallucination seeing people in the room and children walking around his bed all the time. Will request neurology to evaluate the patient again today he was evaluated early and all his symptoms were at the time more metabolic based with the severity of his hypoxia and kidney failure causing problem. 03/20/2024: Patient remain out of the ICU much of complaint, remain on Lasix IV 60 mg every 8 hours will switch from IV drip, his BUN still 91 with creatinine at 2.5, remain on Zaroxolyn 5 mg potassium is down to 3.2 on replacement therapy white blood cell at 7.0 with hemoglobin 9.6 does not require any transfusion. Continue to see nephrology daily for his stage IIIb chronic kidney disease with slightly but worsening kidney function. Apparently his Prograf dose was decreased and he is still on 1500 cc of fluid restriction nephrology planning to switch him to oral Lasix as early as today. Other than this patient has done very well still apparently did not require any further care left a consult for neurology on Wednesday patient was seen and evaluated for altered mental status was claimed to be due to metabolic encephalopathy and hypoglycemia with acute kidney injury and neurology asking if any further management need to be done as an outpatient was advised to follow-up with neurology as an outpatient as well. Change Lasix to oral Lasix 80 mg twice a day and metolazone will be stopped apparently nephrology agreed to add SGLT2 product and agree as well to DC Cintron catheter. Continue low-salt diet and 1200 cc fluid restriction. 03/21/2024: The patient continues to have significant A-fib with RVR not controlled currently on medication and is going for transesophageal echocardiogram and will be going for cardioversion. Creatinine remained at 2.65 which seems plateaued at this point no further improvement, potassium still slightly above low with supportive and replacement care. Hemoglobin is down to 8.2 with platelet count at 146 no change. Remains on O2 pulmonary brown stable on current dose of O2 continue updraft treatment with DuoNeb along with Perforomist and still on small dose of prednisone for his dialysis mostly. Cardiology May 23 he had transesophageal echocardiogram came without any thrombus and ended up having low visual cardioversion successfully cardioverted the heart and remained in a pulse between 60 and 90. His vital signs are more stable afterward. Will continue amiodarone at 200 mg twice a day, Cardizem CD 180 mg 3 times a day and Lopressor 150 mg twice a day. He is back on Eliquis 2.5 mg twice a day as well. [facility] only when patient might be discharged to [facility]. 03/22/2024: Patient is feeling much better today has been ambulating with Independently with slight help, he can still benefit from rehab but patient is absolutely against that at this point and family are supportive of his decision and feel like getting him home on home care and hiring private health will be what they want to do. Day before patient ended up going for cardioversion for A-fib with RVR which seem to control his pulse rate much better at this point. Will continue his current anticoagulation keeping him on amiodarone 200 mg daily, Cardizem 180 mg twice a day and Lopressor 150 mg twice a day seem to control his pulse much better finally. Also patient remain on Lasix 80 mg twice a day to keep his anasarca which has affected his kidney function slight bed his bun is up to 94 with creatinine 3.25 and sadly the information is to him as well that his aunt of rehospitalization next 4 weeks will be extremely high patient is going on a trend toward almost end-stage renal failure despite his transplant might require dialysis sooner than expected. Nephrology brown believe maintain his oral Lasix along with SGLT2 cardiac and low-salt diet maintain potassium supplementation and avoid nephrotoxic agent will help she make an appointment for the patient to see nephrology within 1 week. Patient was to go home today to follow-up as an outpatient sometimes next 3 to 5 days and by nephrology, cardiology, pulmonary within few days. REVIEW OF SYSTEMS: CONSTITUTIONAL: Morbid obesity and mild respiratory distress. Severely confused. EYES: No icterus sclerae, no conjunctivitis. EARS, NOSE, MOUTH, THROAT, and FACE: No sore throat, lymphadenopathy, carotid bruits or deformity. RESPIRATORY: Positive shortness of breath cough or wheezes. CARDIOVASCULAR: Positive PND orthopnea palpitation. GASTROINTESTINAL: No Abd pain, Nausea or vomiting, no Diarrhea or constipation, No GI Bleed, no distention or masses. GENITOURINARY: No polyuria nocturia without any hematuria. INTEGUMENT/BREAST: Negative for any muscular injury with mild osteoarthritis.. HEMATOLOGIC/LYMPHATIC: Chronic anemia with no bleeding. MUSCULOSKELTAL: Negative for Myalgia or arthralgia. NEURLOGICAL: Severe confusion with significant lack of response at this point with worsening mental status. BEHAVIORAL/PSYCH: Negative. ENDOCRINE: Negative. PHYSICAL EXAMINATION: General Appearance: Overweight in mild respiratory distress. Neck HEENT: Supple, no lymphadenopathy, no thyroid enlargement, no carotid bruits. Lungs: Decreased breath sound bilaterally especially the left side with fine rhonchi positive crackles in the bases positive mild inspiratory expiratory wheezes. Chest Wall: Decreased expansion with deep inspiration no tenderness and no deformity was found on exam, no costochondral pain or discomfort. Heart: Irregular rate and rhythm, S1, S2 positive S3 positive PVCs. Back: Symmetric, no curvature, ROM normal, no CVA tenderness. Abdomen: Soft, non-tender, bowel sounds active all four quadrants, no masses, no organomegaly. Extremities: Extremities normal, atraumatic, no cyanosis positive edema. Pulses: 2+ and symmetric. Skin: Skin color, texture, tugor normal, no rashes or lesions. Neurologic: Alert oriented severe confusion cranial nerves II through XII intact, no motor deficit, no abnormal balance or gait. ASSESSMENT AND PLAN: _Acute respiratory failure: Is back on O2 only will require sleep study eventually probably CPAP. _Acute kidney injury with worsening kidney function continue current management continue to watch kidney function creatinine is improving gradually with GFR of Is up to 24. his creatinine plateau currently does not require any dialysis. _A-fib with RVR: He ended up going for cardioversion after transesophageal echocardiogram, remain on Eliquis along with amiodarone 200 mg twice a day, diet and Cardizem 180 mg twice a day and Lopressor 150 mg twice a day. Pulse rate currently is under better control. _Altered mental status: Was evaluated by neurology and found all the change more metabolic consistent with no acute finding continue to have symptoms might require an outpatient workup. _Severe anasarca and fluid overload: Switch Lasix to oral Lasix 80 mg twice a day and off Zaroxolyn today. _Congestive heart failure acute with mild exacerbation much better on current management. _Coronary artery disease post bypass surgery from 2019 has not had any chest pain or angina and even if there is a complaint so far patient is not in any condition to go for an intervention. _GI bleed mostly severe hemorrhoid not significant drop in hemoglobin at this point but still at 8.2 will consult general surgery for checking his rectal area and terminal sigmoid. _Type 2 diabetes not well-controlled noncompliance to medication has been mostly on Lantus 70 units daily along with NovoLog 35 units AC meals plus sliding scales coverage. Titrate insulin as needed. Farxiga was added at 5 mg daily. Average blood sugar running in the 100 level. _End-stage renal disease posttransplant remain on antirejection drugs will consult nephrology continue mycophenolate acid along with Prograf and still on prednisone 5 mg daily. With slightly worsening kidney function at this point with plateau with creatinine around 2.55. _Hypertension: Remain on diltiazem CD 240 mg a day, metoprolol 100 mg twice a day. _Hyperlipidemia: Has been on Lipitor 40 mg a day currently medication. _BPH watch for any urinary retention. _Anticoagulation: Was on Eliquis 2.5 mg twice a day hold medication at this point with the GI bleed is better. _GI prophylaxis: Patient be on Pepcid 20 mg daily. CODE STATUS: Full code. Discussion: After his cardioversion pulse rate is under control, kidney function declined slightly in the last 24 hours patient is doing better with physical therapy and family are supportive of him going home with home care and help. Hospital course: He was admitted to the hospital shortly after his discharge from SNF for over 2 weeks of rehab for acute hospitalization for acute respiratory failure with left-sided pneumonia along with worsening congestive heart failure and acute kidney failure. Patient presented to the emergency department on 03/09/2024 with severe confusion and altered mental status family brought him to [facility] ER by EMS had severe dyspnea confusion and was quite a bit combative and has delusional change as well finding an EKG showing supraventricular tachycardia with pulse between 108 and 140 CAT scan of the brain did not show any abnormality x-ray showed congestive heart failure hemoglobin was down to 8.2 blood gas shows significant hypoxia his creatinine is declining down to 3.46.1 up to 75 with a GFR only 17 patient was not doing well and his responsive at the time was minimum. Was admitted kept on hold in the ER pulse rate become a lot faster required to go back on amiodarone higher dose beside Cardizem drip and his metoprolol to keep his pulse rates under control. Patient required to go on BiPAP initially and then pulmonary had him transferred to the intensive care unit for the first night and second. Was continue on oral prednisone Cardizem and metoprolol his pulse rate started coming down continue hydration his creatinine had improved on the 10th down to 2.49. Patient ended up leaving the intensive care unit on 611 continue not to feel well mobility significantly decreased had a quite anasarca was taking of some of his diuretics and because of the significant amount of water retention nephrology started him on Lasix drip 10 mg an hour along with Zaroxolyn 5 mg a day which at some point start working really well. Patient's confusion and delusion was evaluated twice by neurology and found nothing but symptom of his electrolyte imbalance, kidney and psychological change ongoing with him currently with his current comorbidity with the A-fib, kidney failure and heart failure. His pulse rate continue to be quite with rapid and not control cardiology finally ended up doing a transesophageal echocardiogram and cardioversion on 03/21/2024 which brought his pulse rate down to the 100 level and kept it under better control on current management. Nephrology switched him to oral Lasix 80 mg twice a day in the office her oxygen completely his kidney function start declining little bit more with the adjustment of his transplant medication nephrology felt safe to be discharged home to manage from here on as an outpatient. Mobility and debility brown patient is having significant problem with independency with his absolutely refused to go to SNF program especially some of the expenses may be [id number] mostly not covered with his insurance and his niece who is the guardian was supportive of his decision to go home on home care with the help and they will hire private help as well to stay with him for the night. The patient will be discharged home on 03/22/2024 I believe this is an extremely high possibility for failure and require rehospitalization and more help there way how I see with all what happened with patient including aggressiveness of declining kidney function, heart and multiorgan failure is going to lead him into rehospitalization in the next 2 weeks much higher and require probably more assisted living permanently than having to be able even to consider the idea of going home. Idea was expressed to patient and his family and he is absolutely against the idea of needing to go anywhere or needing any extra help besides visiting nurse at this point. Best can be done is to try and if he fails he will end up back in the hospital sooner than expected which is again it is a rehospitalization I could not prevent despite all the effort. Time spent on patient discharge was over 40 minutes. Patient Condition at Discharge: Serious Plan - Discharge Summary Discharge Rx Participant: No New Discharge Prescriptions: New Dapagliflozin Propanediol [Farxiga] 5 mg PO DAILY #30 tab Metoprolol Tartrate [Lopressor] 150 mg PO BID #240 tab Budesonide [Pulmicort] 1 mg INHALATION RT-BID #60 ml Diltiazem Cd [Cardizem CD] 180 mg PO BID #60 cap Potassium Chloride ER [K-Dur 20] 20 meq PO DAILY #30 tab Furosemide [Lasix] 80 mg PO BID@0900,1600 #60 tab Formoterol Fumarate [Perforomist] 20 mcg INHALATION RT-BID #120 ml Continue Tacrolimus [Prograf] 1 mg PO BID predniSONE 5 mg PO DAILY Mycophenolate Sodium [Mycophenolic Acid] 720 mg PO BID Atorvastatin [Lipitor] 40 mg PO DAILY allopurinoL [Zyloprim] 100 mg PO DAILY Aspirin EC [Ecotrin Low Dose] 81 mg PO DAILY Insulin Aspart [NovoLOG Flexpen] 15 units SQ AC-TID #0 Ipratropium-Albuterol Nebulize [Duoneb 0.5 mg-3 mg/3 ml Soln] 3 ml INHALATION RT-TID #90 each Pantoprazole Sodium [Protonix] 40 mg PO DAILY #30 tab Insulin Glargine,Hum.rec.anlog [Lantus Solostar Pen] 30 units SQ BID Furosemide [Lasix] 20 mg PO DAILY Amiodarone [Cordarone] 200 mg PO DAILY #30 tab Tamsulosin HCl [Flomax] 0.4 mg PO DAILY #30 cap Changed Apixaban [Eliquis] 2.5 mg PO DIRECTED #60 tab Discontinued dilTIAZem HCL [Cardizem CD] 240 mg PO DAILY Metoprolol Tartrate [Lopressor] 100 mg PO TID Torsemide [Demadex] 20 mg PO DAILY tab hydrALAZINE HCL [Apresoline] 25 mg PO BID Discharge Medication List Atorvastatin [Lipitor] 40 mg PO DAILY 07/11/19 [History] Mycophenolate Sodium [Mycophenolic Acid] 720 mg PO BID 07/11/19 [History] Tacrolimus [Prograf] 1 mg PO BID 07/11/19 [History] allopurinoL [Zyloprim] 100 mg PO DAILY 07/11/19 [History] predniSONE 5 mg PO DAILY 07/11/19 [History] Aspirin EC [Ecotrin Low Dose] 81 mg PO DAILY 02/15/24 [History] Insulin Glargine,Hum.rec.anlog [Lantus Solostar Pen] 30 units SQ BID 02/15/24 [History] Insulin Aspart [NovoLOG Flexpen] 15 units SQ AC-TID #0 02/25/24 [Rx] Furosemide [Lasix] 20 mg PO DAILY 03/09/24 [History] Amiodarone [Cordarone] 200 mg PO DAILY #30 tab 03/22/24 [Rx] Apixaban [Eliquis] 2.5 mg PO DIRECTED #60 tab 03/22/24 [Rx] Budesonide [Pulmicort] 1 mg INHALATION RT-BID #60 ml 03/22/24 [Rx] Dapagliflozin Propanediol [Farxiga] 5 mg PO DAILY #30 tab 03/22/24 [Rx] Diltiazem Cd [Cardizem CD] 180 mg PO BID #60 cap 03/22/24 [Rx] Formoterol Fumarate [Perforomist] 20 mcg INHALATION RT-BID #120 ml 03/22/24 [Rx] Furosemide [Lasix] 80 mg PO BID@0900,1600 #60 tab 03/22/24 [Rx] Ipratropium-Albuterol Nebulize [Duoneb 0.5 mg-3 mg/3 ml Soln] 3 ml INHALATION RT-TID #90 each 03/22/24 [Rx] Metoprolol Tartrate [Lopressor] 150 mg PO BID #240 tab 03/22/24 [Rx] Pantoprazole Sodium [Protonix] 40 mg PO DAILY #30 tab 03/22/24 [Rx] Potassium Chloride ER [K-Dur 20] 20 meq PO DAILY #30 tab 03/22/24 [Rx] Tamsulosin HCl [Flomax] 0.4 mg PO DAILY #30 cap 03/22/24 [Rx] Follow up Appointment(s)/Referral(s): Heidi Hernandez MD [STAFF PHYSICIAN] - 04/03/24 10:20 am [facility], [NON-STAFF] - [facility] [NON-STAFF] - Mario Finley MD [Primary Care Provider] - 03/28/24 10:45 am Marques Ly DO [Doctor of Osteopathic Medicine] - 05/01/24 9:30 am Howard Herrera MD [STAFF PHYSICIAN] - 04/04/24 1:30 pm Ambulatory/Diagnostic Orders: Complete Blood Count w/diff [LAB.AMB] Location: None Selected Comprehensive Metabolic Panel [LAB.AMB] Location: None Selected Patient Instructions/Handouts: Heart Failure (ER), Cardioversion (GEN) Discharge/Stand Alone Forms: Who Do I Call?, Adult Foster Skilled Nursing List, Assisted Living Facilities, Community Resources, Help In The Home, Personal Investor Relations Analyst Discharge Disposition: HOME WITH HOME HEALTH SERVICES
== END 2024-03-22 12:18 | disposition home health service (06) | DRG 291 ==
LOC: EC 14:41 → 6NMEDSUR 17:17 → OBSVTOIN 17:18 → 5NMEDONC 03-10 02:30 → 2SICU 03-10 10:34 → 3SCARD 03-15 18:29
PROVIDERS: ADMIT Internal Medicine Geriatric Medicine; ATTEND Internal Medicine Geriatric Medicine
PROC: 4A10X4Z Monitoring of Central Nervous Electrical Activity, External Approach (ICD-10-PCS; 2024-03-10)
PROC: 30233N1 Transfusion of Nonautologous Red Blood Cells into Peripheral Vein, Percutaneous Approach (ICD-10-PCS; 2024-03-15)
PROC: B246ZZ4 Ultrasonography of Right and Left Heart, Transesophageal (ICD-10-PCS; 2024-03-21)
PROC: 5A2204Z Restoration of Cardiac Rhythm, Single (ICD-10-PCS; principal; 2024-03-21 07:15)
DX: I13.2 Hypertensive heart and chronic kidney disease with heart failure and with stage 5 chronic kidney disease, or end stage renal disease (principal); G92.8 Other toxic encephalopathy; I50.43 Acute on chronic combined systolic (congestive) and diastolic (congestive) heart failure; J96.01 Acute respiratory failure with hypoxia; N17.0 Acute kidney failure with tubular necrosis; N18.6 End stage renal disease; E87.1 Hypo-osmolality and hyponatremia; G93.1 Anoxic brain damage, not elsewhere classified; I47.10 Supraventricular tachycardia, unspecified; I48.92 Unspecified atrial flutter; D84.821 Immunodeficiency due to drugs; I48.19 Other persistent atrial fibrillation; E87.29 Other acidosis; X58.XXXA Exposure to other specified factors, initial encounter; D63.1 Anemia in chronic kidney disease; I27.20 Pulmonary hypertension, unspecified; I48.0 Paroxysmal atrial fibrillation; M54.12 Radiculopathy, cervical region; Z79.60 Long term (current) use of unspecified immunomodulators and immunosuppressants; E87.6 Hypokalemia; E11.22 Type 2 diabetes mellitus with diabetic chronic kidney disease; E11.51 Type 2 diabetes mellitus with diabetic peripheral angiopathy without gangrene; E11.65 Type 2 diabetes mellitus with hyperglycemia; I95.9 Hypotension, unspecified; E11.649 Type 2 diabetes mellitus with hypoglycemia without coma; E66.9 Obesity, unspecified; E78.5 Hyperlipidemia, unspecified; F22 Delusional disorders; G47.30 Sleep apnea, unspecified; I51.3 Intracardiac thrombosis, not elsewhere classified; Z79.4 Long term (current) use of insulin; Z79.01 Long term (current) use of anticoagulants; Z79.52 Long term (current) use of systemic steroids; Z79.82 Long term (current) use of aspirin; Z79.624 Long term (current) use of inhibitors of nucleotide synthesis; Z79.899 Other long term (current) drug therapy; Z82.49 Family history of ischemic heart disease and other diseases of the circulatory system; Z86.73 Personal history of transient ischemic attack (TIA), and cerebral infarction without residual deficits; Z95.1 Presence of aortocoronary bypass graft; Z95.3 Presence of xenogenic heart valve; Z68.28 Body mass index [BMI] 28.0-28.9, adult
CPT/HCPCS: 36415; 36600; 51702; 51798; 70450; 71045; 76770; 80048; 80053; 80197; 81001; 82140; 82607; 82728; 82746; 82805; 83036; 83540; 83550; 83605; 83735; 83880; 84100; 84145; 84484; 85025; 85027; 85610; 85730; 86850; 86900; 86901; 86920; 87040; 92960; 93005; 93306; 93312; 93320; 93325; 94640; 94660; 94760; 95816; 96372; 96374; 96375; 96376; 99291

== ENCOUNTER → 2024-03-29 | Outpatient (CLI) | payer MEDICARE ==
[2024-03-29 11:06] VITALS: BP 115/62; PULSE 56; RESP 18; TEMP 98
--- NOTE | 2024-03-29 11:50 | P.PROGSL ---
Subjective DATE: 03/29/2024 FOLLOW UP VISIT. Patient returned to sleep center for follow-up visit. Last time I saw patient in November 2022 to discuss results of home sleep apnea test. Home sleep apnea test showed severe obstructive and central sleep apnea hypopnea syndrome. At that time patient did not want to proceed with titration. Recently had been discharged from the hospital for COPD problems. Presently patient is on oxygen supplement. Patient continued to snore and wakes up from sleep. [place] Sleepiness Scale is significantly increased to 16. MEDICATIONS: Please see below During physical exam: GENERAL: A pleasant patient without any distress on 2 L oxygen supplement. VITAL SIGNS: Please see below. Weight 195 pounds, BMI 31.0, oxygen level 98%. HEENT: PERRLA, EOMI. NECK: Supple. No JVD. LUNGS: Clear to percussion and to auscultation. Good air exchange. No wheezing or rhonchi. HEART: S1, S2 regular. ABDOMEN: Soft and nontender. EXTREMITIES: No clubbing or cyanosis. WRAPPING MACHINE TENDER: Awake, alert, and oriented x3. No focal deficit. Impressions: 1. Snoring, multiple awakenings from sleep, low position of soft palate Mallampati 3, wide neck, sleepiness by [place] Sleepiness Scale 16. Severe obstructive sleep apnea hypopnea syndrome by results of home sleep apnea test in October of last year. Obstructive sleep apnea hypopnea syndrome 2. Mild obesity BMI 31.0. 3. COPD on 2 L oxygen supplement. 4. Status post kidney transplant. 5. Diabetes mellitus. 6. Status post stroke at the age of 42. 7. History of restless leg symptoms. 8. Coronary artery disease, status post CABG. Plan: 1. We will repeat home sleep apnea test, because previous test was done 1-1/2-year ago. Test will be done with oxygen supplement. 2. Sleep hygiene with regular time in bed for at least 8 hours. 3. Following plan after reading sleep study. 4. Precautions related to driving. No driving if feel any sleepiness. Patient is aware about civil and criminal liability for unsafe driving, promised to follow recommendations. Thank you very much for allowing me to participate in the management of your patient. Velasquez Churchill MD, PhD, FAASM. Diplomat of [place] Board [employer], Sleep Medicine Board by [place] Board of [employer] Medicine Pediatric Oncology Nurse of [facility] [place] Objective - Vital Signs Vital Signs: Vital Signs Temp 98 F 03/29/24 11:05 Pulse 56 L 03/29/24 11:05 Resp 18 03/29/24 11:05 BP 115/62 03/29/24 11:05 Pulse Ox 98 03/29/24 11:05 FiO2 Intake & Output 03/28/24 03/29/24 03/29/24 18:59 06:59 18:59 Weight 88.451 kg Home Medications: Home Medications Medication Instructions Recorded Confirmed Type Atorvastatin [Lipitor] 40 mg PO DAILY 07/11/19 03/29/24 History Mycophenolate Sodium [Mycophenolic 720 mg PO BID 07/11/19 03/29/24 History Acid] Tacrolimus [Prograf] 1 mg PO BID 07/11/19 03/29/24 History allopurinoL [Zyloprim] 100 mg PO DAILY 07/11/19 03/29/24 History predniSONE 5 mg PO DAILY 07/11/19 03/29/24 History Aspirin EC [Ecotrin Low Dose] 81 mg PO 02/15/24 03/09/24 History Insulin Glargine,Hum.rec.anlog 30 units SQ BID 02/15/24 03/29/24 History [Lantus Solostar Pen] Insulin Aspart [NovoLOG Flexpen] 15 units SQ AC-TID #0 02/25/24 03/29/24 Rx Furosemide [Lasix] 20 mg PO DAILY 03/09/24 03/09/24 History Amiodarone [Cordarone] 200 mg PO DAILY #30 tab 03/22/24 03/29/24 Rx Apixaban [Eliquis] 2.5 mg PO DIRECTED #60 tab 03/22/24 03/29/24 Rx Budesonide [Pulmicort] 1 mg INHALATION RT-BID #60 ml 03/22/24 03/29/24 Rx Dapagliflozin Propanediol [Farxiga] 5 mg PO DAILY #30 tab 03/22/24 03/29/24 Rx Diltiazem Cd [Cardizem CD] 180 mg PO BID #60 cap 03/22/24 03/29/24 Rx Formoterol Fumarate [Perforomist] 20 mcg INHALATION RT-BID #120 ml 03/22/24 03/29/24 Rx Ipratropium-Albuterol Nebulize 3 ml INHALATION RT-TID #90 each 03/22/24 03/29/24 Rx [Duoneb 0.5 mg-3 mg/3 ml Soln] Metoprolol Tartrate [Lopressor] 150 mg PO BID #240 tab 03/22/24 03/29/24 Rx Pantoprazole Sodium [Protonix] 40 mg PO DAILY #30 tab 03/22/24 03/29/24 Rx Potassium Chloride ER [K-Dur 20] 20 meq PO DAILY #30 tab 03/22/24 03/29/24 Rx Tamsulosin HCl [Flomax] 0.4 mg PO DAILY #30 cap 03/22/24 03/29/24 Rx Furosemide [Lasix] 60 mg PO BID@0900,1600 03/29/24 03/29/24 History
== END ==
LOC: 3 N SLEEP 10:41
PROVIDERS: ATTEND Internal Medicine
DX: G47.33 Obstructive sleep apnea (adult) (pediatric) (principal); E66.9 Obesity, unspecified; J44.9 Chronic obstructive pulmonary disease, unspecified; E11.9 Type 2 diabetes mellitus without complications; I25.10 Atherosclerotic heart disease of native coronary artery without angina pectoris; F17.200 Nicotine dependence, unspecified, uncomplicated; Z95.1 Presence of aortocoronary bypass graft; Z87.39 Personal history of other diseases of the musculoskeletal system and connective tissue; Z94.0 Kidney transplant status; Z86.73 Personal history of transient ischemic attack (TIA), and cerebral infarction without residual deficits; Z68.31 Body mass index [BMI] 31.0-31.9, adult; Z79.01 Long term (current) use of anticoagulants; Z79.4 Long term (current) use of insulin; Z79.51 Long term (current) use of inhaled steroids
CPT/HCPCS: 99212

== ENCOUNTER → 2024-05-02 | Outpatient (CLI) | payer MEDICARE ==
--- NOTE | 2024-05-26 15:54 | SLS ---
SLEEP STUDY PROCEDURE: Home sleep apnea test. CLINICAL: A home sleep apnea test has been done for confirmation of possible obstructive sleep apnea-hypopnea syndrome. DESCRIPTION OF PROCEDURE: Standard home sleep apnea test has been done with pressure transducer monitoring of nasal breathing, finger oximetry, and chest belt. Recording done for 8 hours 53 minutes, monitoring time 8 hours 40 minutes, which is sufficient for making conclusion. Raw data of sleep recording has been reviewed and is adequate. RESULTS: Respiratory channel showed 101 apnea apneas and 290 hypopneas with total apnea- hypopnea index 45 with oxygen desaturation to 75%. Pulse rate in the range between 52 and 138, average 57 by computer calculation. IMPRESSION: 1. Severe obstructive sleep apnea-hypopnea syndrome. Please see other impressions from consultation. PLAN: 1. CPAP titration for correction of respiratory abnormalities during sleep. 2. Sleep hygiene with regular time in bed for at least 7-1/2 to 8 hours. 3. Watching weight. 4. No driving if feeling any sleepiness. Thank you very much for allowing me to participate in the management of your patient. Sincerely, Velasquez Churchill MD, PhD, FAASM Diplomat of [place] [employer] Sleep Medicine Board of [place] [employer] Mold Sander of [facility] [place] MMODL / IJN: [id number] / ESDRAS
== END ==
LOC: 3 N SLEEP 16:30
PROVIDERS: ATTEND Internal Medicine
DX: G47.31 Primary central sleep apnea (principal); G47.33 Obstructive sleep apnea (adult) (pediatric); F17.200 Nicotine dependence, unspecified, uncomplicated

== ENCOUNTER → 2024-05-31 | Outpatient (CLI) | payer MEDICARE ==
[2024-06-01 08:50] LABS: HCT 30.1 % (39.6-50.0); HGB 9.5 g/dL (13.0-17.0); MCH 28.7 pg (27.0-32.0); MCHC 31.6 g/dL (32.0-37.0); MCV 90.9 FL (80.0-97.0); Mean Platelet Volume 12.1 FL (9.5-12.2); NRBC Per 100 WBC 0 X 10*3/uL (0.00-0.01); Platelet Count 183 X 10*3/uL (140-440); RBC 3.31 X 10*6/uL (4.40-5.60); RDW 14.6 % (11.5-14.5); WBC 9.12 X 10*3/uL (4.50-10.00)
[2024-06-01 09:01] LABS: Urine Creatinine 69.6 mg/dL (39.0-259.0)
[2024-06-01 09:29] LABS: % Iron Saturation 18.37 (15.00-50.00); Blood Urea Nitrogen 80.4 mg/dL (9.0-27.0); Calcium 9.3 mg/dL (8.7-10.3); Carbon Dioxide 17.8 mmol/L (21.6-31.8); Chloride 103 mmol/L (96-109); Glucose 233 mg/dL (70-110); Iron 54 UG/DL (65-175); Magnesium 1.9 mg/dL (1.5-2.4); Phosphorus 3.7 mg/dL (2.4-5.1); Potassium 5.4 mmol/L (3.5-5.5); Sodium 134 mmol/L (135-145); Total Iron Binding Capacity 294 UG/DL (228-460); Uric Acid 7.9 mg/dL (3.7-8.7)
[2024-06-01 11:09] LABS: Appearance,Urine Clear (Clear); Bilirubin,Urine Negative (Negative); Blood,Urine Negative (Negative); Color,Urine Yellow (Yellow); Ketones,Urine Negative (Negative); Nitrite,Urine Negative (Negative); Specific Gravity,Urine 1.011 (1.001-1.030); Urobilinogen,Urine 0.2 E.U./DL
== END ==
LOC: LABWHC1 15:57
PROVIDERS: ATTEND Internal Medicine Nephrology
DX: N18.32 Chronic kidney disease, stage 3b (principal); Z94.0 Kidney transplant status; D64.9 Anemia, unspecified; N39.0 Urinary tract infection, site not specified; R80.9 Proteinuria, unspecified; E55.9 Vitamin D deficiency, unspecified
CPT/HCPCS: 36415; 80048; 81003; 82043; 82306; 82570; 82728; 83540; 83550; 83735; 83970; 84100; 84550; 85027

== ENCOUNTER → 2024-06-13 | Outpatient (CLI) | payer MEDICARE | END | disposition home or self-care (01) | LOC: LABWHC1 15:13 | PROVIDERS: ATTEND Internal Medicine Nephrology | DX: N25.81 Secondary hyperparathyroidism of renal origin | CPT/HCPCS: 36415; 83970 ==

== ENCOUNTER → 2024-08-04 | Outpatient (CLI) | payer MEDICARE | END | disposition home or self-care (01) | LOC: LABWHC1 15:09 | PROVIDERS: ATTEND Internal Medicine | DX: Z53.9 Procedure and treatment not carried out, unspecified reason (principal) ==

== ENCOUNTER → 2024-08-04 | Outpatient (CLI) | payer MEDICARE ==
[2024-08-04 16:26] LABS: Creatinine,Urine Random 81.4 mg/dL; Protein/Creatinine Ratio,Urine 0.602
[2024-08-05 02:26] LABS: Basophils # (A) 0.01 X 10*3/uL (0.00-0.10); Basophils % (A) 0.2 %; Eosinophils # (A) 0.07 X 10*3/uL (0.04-0.35); Eosinophils % (A) 1.3 %; HCT 31.3 % (39.6-50.0); HGB 9.3 g/dL (13.0-17.0); Lymphocytes # (A) 1.17 X 10*3/uL (0.90-5.00); MCH 27.3 pg (27.0-32.0); MCHC 29.7 g/dL (32.0-37.0); MCV 91.8 FL (80.0-97.0); Mean Platelet Volume 11.6 FL (9.5-12.2); Monocytes % (A) 10.8 %; NRBC Per 100 WBC 0 X 10*3/uL (0.00-0.01); Neutrophils % (A) 66.2 %; Platelet Count 158 X 10*3/uL (140-440); RBC 3.41 X 10*6/uL (4.40-5.60); RDW 14.2 % (11.5-14.5); WBC 5.58 X 10*3/uL (4.50-10.00)
[2024-08-05 02:29] LABS: Appearance,Urine Clear (Clear); Bilirubin,Urine Negative (Negative); Blood,Urine Negative (Negative); Color,Urine Yellow (Yellow); Ketones,Urine Negative (Negative); Nitrite,Urine Negative (Negative); PH, Urine 5.5; Specific Gravity,Urine 1.013 (1.001-1.030); Urobilinogen,Urine 0.2 E.U./DL
[2024-08-05 03:45] LABS: ALT 29 U/L (10-49); AST 20 U/L (14-35); Albumin 3.6 g/dL (3.8-4.9); Alkaline Phosphatase 100 U/L (41-126); BUN/Creat Ratio 19.39 Ratio (12.00-20.00); Blood Urea Nitrogen 44.6 mg/dL (9.0-27.0); Calcium 9.4 mg/dL (8.7-10.3); Carbon Dioxide 22.7 mmol/L (21.6-31.8); Chloride 107 mmol/L (96-109); Glucose 227 mg/dL (70-110); Magnesium 1.8 mg/dL (1.5-2.4); Phosphorus 2.7 mg/dL (2.4-5.1); Potassium 4.2 mmol/L (3.5-5.5); Sodium 141 mmol/L (135-145); Total Bilirubin 0.4 mg/dL (0.3-1.2); Total Protein 5.8 g/dL (6.2-8.2)
== END | disposition home or self-care (01) ==
LOC: LABWHC1 14:59
DX: Z51.81 Encounter for therapeutic drug level monitoring (principal); Z13.89 Encounter for screening for other disorder; Z94.0 Kidney transplant status; Z79.52 Long term (current) use of systemic steroids; Z79.899 Other long term (current) drug therapy
CPT/HCPCS: 36415; 80048; 80197; 81003; 82040; 82043; 82247; 82306; 82570; 83735; 83970; 84075; 84100; 84155; 84156; 84450; 84460; 85025

== ENCOUNTER → 2024-11-06 | Outpatient (CLI) | payer MEDICARE ==
[2024-11-06 14:54] LABS: Creatinine,Urine Random 79.3 mg/dL; Protein/Creatinine Ratio,Urine 0.668
[2024-11-06 16:58] LABS: Basophils # (A) 0.01 X 10*3/uL (0.00-0.10); Basophils % (A) 0.2 %; Eosinophils # (A) 0.11 X 10*3/uL (0.04-0.35); Eosinophils % (A) 1.8 %; HCT 31.2 % (39.6-50.0); HGB 9.6 g/dL (13.0-17.0); Lymphocytes # (A) 1.43 X 10*3/uL (0.90-5.00); Lymphocytes % (A) 22.8 %; MCH 26.7 pg (27.0-32.0); MCHC 30.8 g/dL (32.0-37.0); MCV 86.7 FL (80.0-97.0); Mean Platelet Volume 12.1 FL (9.5-12.2); Monocytes % (A) 11.1 %; NRBC Per 100 WBC 0 X 10*3/uL (0.00-0.01); Neutrophils % (A) 63.6 %; Platelet Count 127 X 10*3/uL (140-440); RDW 16.3 % (11.5-14.5); WBC 6.28 X 10*3/uL (4.50-10.00)
[2024-11-06 19:02] LABS: Appearance,Urine Clear (Clear); Bilirubin,Urine Negative (Negative); Blood,Urine Negative (Negative); Color,Urine Yellow (Yellow); Ketones,Urine Negative (Negative); Nitrite,Urine Negative (Negative); Specific Gravity,Urine 1.012 (1.001-1.030); Urobilinogen,Urine 0.2 E.U./DL
[2024-11-06 19:07] LABS: ALT 32 U/L (10-49); AST 16 U/L (14-35); Albumin 3.6 g/dL (3.8-4.9); Albumin/Globulin Ratio 1.57 Ratio (1.60-3.17); Alkaline Phosphatase 109 U/L (41-126); BUN/Creat Ratio 24.55 Ratio (12.00-20.00); Blood Urea Nitrogen 49.1 mg/dL (9.0-27.0); Calcium 9.5 mg/dL (8.7-10.3); Chloride 103 mmol/L (96-109); Globulin 2.3 g/dL (1.6-3.3); Glucose 292 mg/dL (70-110); Phosphorus 3.2 mg/dL (2.4-5.1); Potassium 4.2 mmol/L (3.5-5.5); Sodium 137 mmol/L (135-145); Total Bilirubin 0.6 mg/dL (0.3-1.2); Total Protein 5.9 g/dL (6.2-8.2)
[2024-11-07 14:00] LABS: BK Virus DNA PCR, Qualitative Not detected (Not detected); BKV DNA (PCR), Quant <125 Copies/mL (<125); LOG BKV Copies/mL <2.10 (<2.10)
[2024-11-08 02:31] LABS: Tacrolimus (FK506) 6.6 ng/mL (5.0-20.0)
== END | disposition home or self-care (01) ==
LOC: LABWHC1 12:39
PROVIDERS: ATTEND Internal Medicine Nephrology
DX: Z13.89 Encounter for screening for other disorder (principal); Z51.81 Encounter for therapeutic drug level monitoring; Z94.0 Kidney transplant status; Z48.298 Encounter for aftercare following other organ transplant; R73.01 Impaired fasting glucose
CPT/HCPCS: 36415; 80053; 80197; 81003; 82570; 83036; 84100; 84156; 85025; 87086

== ENCOUNTER 2024-11-26 00:10 | Emergency (ER) | payer MEDICARE ==
[2024-11-26 00:39] LABS: Anisocytosis Slight; Basophils % (A) 0 %; Eosinophils # (A) 0.1 k/uL (0-0.7); Eosinophils % (A) 2 %; HCT 33.7 % (39.0-53.0); HGB 10.4 gm/dL (13.0-17.5); Hypochromasia Moderate; Lymphocytes # (A) 1.4 k/uL (1.0-4.8); Lymphocytes % (A) 24 %; MCH 27.3 pg (25.0-35.0); MCV 88.2 fL (80.0-100.0); Mean Platelet Volume 8.7; Monocytes # (A) 0.4 k/uL (0-1.0); Monocytes % (A) 7 %; Neutrophils # (A) 3.8 k/uL (1.3-7.7); Neutrophils % (A) 64 %; Platelet Count 175 k/uL (150-450); RBC 3.82 m/uL (4.30-5.90)
--- NOTE | 2024-11-26 00:59 | ED ---
General Adult HPI - General Source: patient, police, RN notes reviewed, old records reviewed Mode of arrival: ambulatory Limitations: no limitations <Marques Wilcox - Last Filed: 11/26/24 03:00> <Donnie Markham - Last Filed: 11/27/24 14:05> - General Chief complaint: Psychiatric Symptoms Stated complaint: Petition Time Seen by Provider: 11/26/24 00:16 - History of Present Illness Initial comments: 69-year-old male presenting for psychiatric evaluation. Patient was brought in by local PD for hallucination. Patient states this has been an ongoing issue for the past 6 months or so. He was found in his home with a gun and was seeing people outside the home that were not present. He denies suicidal ideation but states that he does want to kill the people that he is seeing there are several individuals. No physical complaints. (Marques Wilcox) - Related Data Home Medications Medication Instructions Recorded Confirmed Atorvastatin [Lipitor] 40 mg PO DAILY 07/11/19 11/26/24 Mycophenolate Sodium [Mycophenolic 720 mg PO BID 07/11/19 11/26/24 Acid] allopurinoL [Zyloprim] 100 mg PO DAILY 07/11/19 11/26/24 predniSONE 5 mg PO DAILY 07/11/19 11/26/24 Insulin Glargine,Hum.rec.anlog 30 units SQ BID 02/15/24 11/26/24 [Lantus Solostar Pen] Furosemide [Lasix] 80 mg PO DAILY 03/09/24 11/26/24 Budesonide [Pulmicort] 1 mg INHALATION RT-BID PRN 11/26/24 11/26/24 Diltiazem Cd [Cardizem CD] 180 mg PO DAILY 11/26/24 11/26/24 Formoterol Fumarate [Perforomist] 20 mcg INHALATION RT-BID PRN 11/26/24 11/26/24 Furosemide [Lasix] 60 mg PO HS 11/26/24 11/26/24 Insulin Aspart [NovoLOG Flexpen] 35 units SQ AC-TID 11/26/24 11/26/24 Insulin Aspart [NovoLOG Flexpen] See Protocol SQ AC-TID PRN 11/26/24 11/26/24 Ipratropium-Albuterol Nebulize 3 ml INHALATION RT-TID PRN 11/26/24 11/26/24 [Duoneb 0.5 mg-3 mg/3 ml Soln] Metoprolol Tartrate [Lopressor] 75 mg PO BID 11/26/24 11/26/24 Rivaroxaban [Xarelto] 15 mg PO DAILY 11/26/24 11/26/24 Tacrolimus [Prograf] 1 mg PO BID 11/26/24 11/26/24 Vitamin D3 (Unknown Strength) 1 dose PO DAILY 11/26/24 11/26/24 amLODIPine [Norvasc] 10 mg PO DAILY 11/26/24 11/26/24 Previous Rx's Medication Instructions Recorded Pantoprazole Sodium [Protonix] 40 mg PO DAILY #30 tab 03/22/24 Potassium Chloride ER [K-Dur 20] 20 meq PO DAILY #30 tab 03/22/24 Tamsulosin HCl [Flomax] 0.4 mg PO DAILY #30 cap 03/22/24 Allergies Allergy/AdvReac Type Severity Reaction Status Date / Time No Known Allergies Allergy Verified 11/26/24 09:25 Review of Systems ROS Other: All systems not noted in ROS Statement are negative. <Marques Wilcox - Last Filed: 11/26/24 03:00> ROS Other: All systems not noted in ROS Statement are negative. <Donnie Markham - Last Filed: 11/27/24 14:05> ROS Statement: Those systems with pertinent positive or pertinent negative responses have been documented in the HPI. Past Medical History Past Medical History: Heart Failure, CVA/TIA, Diabetes Mellitus, Hyperlipidemia, Hypertension Additional Past Medical History / Comment(s): kidney transplant; stroke at 42 years old History of Any Multi-Drug Resistant Organisms: None Reported Past Surgical History: Coronary Bypass/CABG Additional Past Surgical History / Comment(s): kidney transplant. CABG 2018 Past Anesthesia/Blood Transfusion Reactions: No Reported Reaction Past Psychological History: No Psychological Hx Reported Smoking Status: Former smoker Past Alcohol Use History: Occasional Past Drug Use History: None Reported - Past Family History Father Family Medical History: Coronary Artery Disease (CAD) Mother Family Medical History: CVA/TIA, Diabetes Mellitus <Marques Wilcox - Last Filed: 11/26/24 03:00> General Exam Limitations: no limitations General appearance: alert, in no apparent distress Head exam: Present: atraumatic, normocephalic Eye exam: Present: normal appearance, PERRL ENT exam: Present: normal exam Neck exam: Present: normal inspection. Absent: tenderness, meningismus Respiratory exam: Present: normal lung sounds bilaterally. Absent: respiratory distress, wheezes Cardiovascular Exam: Present: regular rate, normal rhythm GI/Abdominal exam: Present: soft. Absent: distended, tenderness Extremities exam: Present: normal inspection, normal capillary refill Neurological exam: Present: alert, oriented X3, CN II-XII intact. Absent: motor sensory deficit Psychiatric exam: Present: homicidal ideation Skin exam: Present: warm, dry, intact <Marques Wilcox - Last Filed: 11/26/24 03:00> Course Vital Signs 11/26/24 11/26/24 11/26/24 00:11 18:31 20:49 Temperature 98 F 98.6 F Pulse Rate 118 H 108 H 109 H Respiratory 18 16 18 Rate Blood Pressure 117/68 130/75 130/76 O2 Sat by Pulse 96 94 L 96 Oximetry 11/27/24 11/27/24 11/27/24 03:15 07:54 08:30 Temperature 97.7 F Pulse Rate 110 H 110 H Respiratory 18 16 17 Rate Blood Pressure 113/66 104/62 O2 Sat by Pulse 93 L 95 Oximetry 11/27/24 11/27/24 13:24 13:47 Temperature 98.1 F Pulse Rate 108 H Respiratory 17 19 Rate Blood Pressure 124/65 O2 Sat by Pulse 92 L Oximetry Medical Decision Making - Lab Data Result diagrams: 11/26/24 00:28 11/26/24 00:28 <Marques Wilcox - Last Filed: 11/26/24 03:00> - Lab Data Result diagrams: 11/26/24 00:28 11/26/24 00:28 <Donnie Markham - Last Filed: 11/27/24 14:05> - Medical Decision Making Was pt. sent in by a medical professional or institution (Dr. PA, FLEX O WRITER OPERATOR, urgent care, hospital, or fdc...) When possible be specific @ -No Did you speak to anyone other than the patient for history (EMS, parent, family, police, friend...)? What history was obtained from this source @ -No Did you review nursing and triage notes (agree or disagree)? Why? @ -I reviewed and agree with nursing and triage notes Were old charts reviewed (outside hosp., previous admission, EMS record, old EKG, old radiological studies, urgent care reports/EKG's, fdc records)? Report findings @ -No old charts were reviewed Differential Mental Health Depression, anxiety, bipolar, psychosis, schizophrenia, borderline personality, situational depression, adjustment disorder, behavioral disorder, brain tumor, malingering, substance abuse, encephalopathy, medication reaction, dementia, hy pothyroidism, degenerative neurologic disorder, lupus.... This is not meant to be all-inclusive list EKG interpreted by me (3pts min.). @ -As above X-rays interpreted by me (1pt min.). @ -None done CT interpreted by me (1pt min.). @ -None done U/S interpreted by me (1pt. min.). @ -None done What testing was considered but not performed or refused? (CT, X-rays, U/S, labs)? Why? @ -None What meds were considered but not given or refused? Why? @ -None Did you discuss the management of the patient with other professionals (professionals i.e. , PA, FLEX O WRITER OPERATOR, lab, RT, psych nurse, social welfare research worker, cone marker, teacher, jailer/training officer, lining caser)? Give summary @ -EPS nurse recommending admission Was smoking cessation discussed for >3mins.? @ -No Was critical care preformed (if so, how long)? @ -No Were there social determinants of health that impacted care today? How? (Homelessness, low income, unemployed, alcoholism, drug addiction, transportation, low edu. Level, literacy, decrease access to med. care, long-term, rehab)? @ -No Was there de-escalation of care discussed even if they declined (Discuss DNR or withdrawal of care, Hospice)? DNR status @ -No What co-morbidities impacted this encounter? (DM, HTN, Smoking, COPD, CAD, Cancer, CVA, ARF, Chemo, Hep., AIDS, mental health diagnosis, sleep apnea, morbid obesity)? @Chronic kidney disease status post transplant Was patient admitted / discharged? Hospital course, mention meds given and route, prescriptions, significant lab abnormalities, going to OR and other pertinent info. @ -[Patient medically cleared and evaluated by EPS, felt to require inpatient psychiatric care. I do agree with this assessment. I completed a clinical certification. The patient is currently pending transfer to geriatric psych facility. Undiagnosed new problem with uncertain prognosis? @ -No Drug Therapy requiring intensive monitoring for toxicity (Heparin, Nitro, Insulin, Cardizem)? @ -No Were any procedures done? @ -No Diagnosis/symptom? @ -Acute psychosis, homicidal ideation Acute, or Chronic, or Acute on Chronic? @ -Acute Uncomplicated (without systemic symptoms) or Complicated (systemic symptoms)? @ -Default Side effects of treatment? @ -No Exacerbation, Progression, or Severe Exacerbation? @ -No Poses a threat to life or bodily function? How? (Chest pain, [place], [place], pneumonia, PE, COPD, DKA, ARF, appy, cholecystitis, CVA, Diverticulitis, Homicidal, Suicidal, threat to staff... and all critical care pts) @ -[yes, homicidal (Marques Wilcox) Patient was pending transfer. Accepted to geriatric psychiatry at [facility]. Transferred in stable condition. (Donnie Markham) - Lab Data Lab Results 11/26/24 11/26/24 11/26/24 Range/Units 00:28 00:28 02:58 WBC 6.0 (3.8-10.6) k/uL RBC 3.82 L (4.30-5.90) m/uL Hgb 10.4 L (13.0-17.5) gm/dL Hct 33.7 L (39.0-53.0) % MCV 88.2 (80.0-100.0) fL MCH 27.3 (25.0-35.0) pg MCHC 31.0 (31.0-37.0) g/dL RDW 17.0 H (11.5-15.5) % Plt Count 175 (150-450) k/uL MPV 8.7 Neutrophils % 64 % Lymphocytes % 24 % Monocytes % 7 % Eosinophils % 2 % Basophils % 0 % Neutrophils # 3.8 (1.3-7.7) k/uL Lymphocytes # 1.4 (1.0-4.8) k/uL Monocytes # 0.4 (0-1.0) k/uL Eosinophils # 0.1 (0-0.7) k/uL Basophils # 0.0 (0-0.2) k/uL Hypochromasia Moderate Anisocytosis Slight Sodium 141 (137-145) mmol/L Potassium 4.5 (3.5-5.1) mmol/L Chloride 108 H (98-107) mmol/L Carbon Dioxide 26 (22-30) mmol/L Anion Gap 7 mmol/L BUN 34 H (9-20) mg/dL Creatinine 1.91 H (0.66-1.25) mg/dL Est GFR (CKD-EPI)AfAm 41 (>60 ml/min/1.73 sqM) Est GFR (CKD-EPI)NonAf 35 (>60 ml/min/1.73 sqM) Glucose 101 H (74-99) mg/dL POC Glucose (mg/dL) (70-110) mg/dL POC Glu Hotel Service Supervisor ID Calcium 10.1 (8.4-10.2) mg/dL Total Bilirubin 0.6 (0.2-1.3) mg/dL AST 24 (17-59) U/L ALT 20 (4-49) U/L Alkaline Phosphatase 98 (38-126) U/L Total Protein 6.5 (6.3-8.2) g/dL Albumin 3.6 (3.5-5.0) g/dL Urine Opiates Screen (NotDetected) Ur Oxycodone Screen (NotDetected) Urine Methadone Screen (NotDetected) Ur Barbiturates Screen (NotDetected) U Tricyclic Antidepress (NotDetected) Ur Phencyclidine Scrn (NotDetected) Ur Amphetamines Screen (NotDetected) U Methamphetamines Scrn (NotDetected) U Benzodiazepines Scrn (NotDetected) Urine Cocaine Screen (NotDetected) U Marijuana (THC) Screen (NotDetected) Influenza Type A (PCR) Not Detected (Not Detectd) Influenza Type B (PCR) Not Detected (Not Detectd) RSV (PCR) Not Detected (Not Detectd) SARS-CoV-2 (PCR) Not Detected (Not Detectd) 11/26/24 11/26/24 11/26/24 Range/Units 05:37 11:29 19:28 WBC (3.8-10.6) k/uL RBC (4.30-5.90) m/uL Hgb (13.0-17.5) gm/dL Hct (39.0-53.0) % MCV (80.0-100.0) fL MCH (25.0-35.0) pg MCHC (31.0-37.0) g/dL RDW (11.5-15.5) % Plt Count (150-450) k/uL MPV Neutrophils % % Lymphocytes % % Monocytes % % Eosinophils % % Basophils % % Neutrophils # (1.3-7.7) k/uL Lymphocytes # (1.0-4.8) k/uL Monocytes # (0-1.0) k/uL Eosinophils # (0-0.7) k/uL Basophils # (0-0.2) k/uL Hypochromasia Anisocytosis Sodium (137-145) mmol/L Potassium (3.5-5.1) mmol/L Chloride (98-107) mmol/L Carbon Dioxide (22-30) mmol/L Anion Gap mmol/L BUN (9-20) mg/dL Creatinine (0.66-1.25) mg/dL Est GFR (CKD-EPI)AfAm (>60 ml/min/1.73 sqM) Est GFR (CKD-EPI)NonAf (>60 ml/min/1.73 sqM) Glucose (74-99) mg/dL POC Glucose (mg/dL) 191 H 343 H (70-110) mg/dL POC Glu Hotel Service Supervisor ID Niels Warner Calcium (8.4-10.2) mg/dL Total Bilirubin (0.2-1.3) mg/dL AST (17-59) U/L ALT (4-49) U/L Alkaline Phosphatase (38-126) U/L Total Protein (6.3-8.2) g/dL Albumin (3.5-5.0) g/dL Urine Opiates Screen Not Detected (NotDetected) Ur Oxycodone Screen Not Detected (NotDetected) Urine Methadone Screen Not Detected (NotDetected) Ur Barbiturates Screen Not Detected (NotDetected) U Tricyclic Antidepress Not Detected (NotDetected) Ur Phencyclidine Scrn Not Detected (NotDetected) Ur Amphetamines Screen Not Detected (NotDetected) U Methamphetamines Scrn Not Detected (NotDetected) U Benzodiazepines Scrn Not Detected (NotDetected) Urine Cocaine Screen Not Detected (NotDetected) U Marijuana (THC) Screen Not Detected (NotDetected) Influenza Type A (PCR) (Not Detectd) Influenza Type B (PCR) (Not Detectd) RSV (PCR) (Not Detectd) SARS-CoV-2 (PCR) (Not Detectd) 11/27/24 11/27/24 11/27/24 Range/Units 00:13 06:54 13:04 WBC (3.8-10.6) k/uL RBC (4.30-5.90) m/uL Hgb (13.0-17.5) gm/dL Hct (39.0-53.0) % MCV (80.0-100.0) fL MCH (25.0-35.0) pg MCHC (31.0-37.0) g/dL RDW (11.5-15.5) % Plt Count (150-450) k/uL MPV Neutrophils % % Lymphocytes % % Monocytes % % Eosinophils % % Basophils % % Neutrophils # (1.3-7.7) k/uL Lymphocytes # (1.0-4.8) k/uL Monocytes # (0-1.0) k/uL Eosinophils # (0-0.7) k/uL Basophils # (0-0.2) k/uL Hypochromasia Anisocytosis Sodium (137-145) mmol/L Potassium (3.5-5.1) mmol/L Chloride (98-107) mmol/L Carbon Dioxide (22-30) mmol/L Anion Gap mmol/L BUN (9-20) mg/dL Creatinine (0.66-1.25) mg/dL Est GFR (CKD-EPI)AfAm (>60 ml/min/1.73 sqM) Est GFR (CKD-EPI)NonAf (>60 ml/min/1.73 sqM) Glucose (74-99) mg/dL POC Glucose (mg/dL) 262 H 250 H 307 H (70-110) mg/dL POC Glu Hotel Service Supervisor ID [place] Calcium (8.4-10.2) mg/dL Total Bilirubin (0.2-1.3) mg/dL AST (17-59) U/L ALT (4-49) U/L Alkaline Phosphatase (38-126) U/L Total Protein (6.3-8.2) g/dL Albumin (3.5-5.0) g/dL Urine Opiates Screen (NotDetected) Ur Oxycodone Screen (NotDetected) Urine Methadone Screen (NotDetected) Ur Barbiturates Screen (NotDetected) U Tricyclic Antidepress (NotDetected) Ur Phencyclidine Scrn (NotDetected) Ur Amphetamines Screen (NotDetected) U Methamphetamines Scrn (NotDetected) U Benzodiazepines Scrn (NotDetected) Urine Cocaine Screen (NotDetected) U Marijuana (THC) Screen (NotDetected) Influenza Type A (PCR) (Not Detectd) Influenza Type B (PCR) (Not Detectd) RSV (PCR) (Not Detectd) SARS-CoV-2 (PCR) (Not Detectd) Disposition Is patient prescribed a controlled substance at d/c from ED?: No Time of Disposition: 03:02 - Out of Hospital Transfer - Req. Specs Out of Hospital Transfer - Requested Specifics: Psychiatric Non-ICU (Geriatric psychiatric facility) <Marques Wilcox - Last Filed: 11/26/24 03:00> <Donnie Markham - Last Filed: 11/27/24 14:05> Clinical Impression: History of kidney transplant, Acute psychosis Disposition: ADMITTED IP TO THIS HOSP Condition: Stable Referrals: Mario Finley MD [Primary Care Provider] - 1-2 days
[2024-11-26 01:02] LABS: ALT 20 U/L (4-49); AST 24 U/L (17-59); African American GFR (CKD) 41 (>60 ml/min/1.73 sqM); Albumin 3.6 g/dL (3.5-5.0); Alkaline Phosphatase 98 U/L (38-126); Anion Gap 7 mmol/L; Blood Urea Nitrogen 34 mg/dL (9-20); Calcium 10.1 mg/dL (8.4-10.2); Carbon Dioxide 26 mmol/L (22-30); Chloride 108 mmol/L (98-107); Glucose 101 mg/dL (74-99); Non-African American GFR(CKD) 35 (>60 ml/min/1.73 sqM); Potassium 4.5 mmol/L (3.5-5.1); Sodium 141 mmol/L (137-145); Total Bilirubin 0.6 mg/dL (0.2-1.3); Total Protein 6.5 g/dL (6.3-8.2)
[2024-11-26] MEDS: TACROLIMUS 1 MG CAP PO SCH ×2 (01:45→11:16)
[2024-11-26] MEDS: MYCOPHENOLATE SODIUM DR 180 MG TABLET.DR PO SCH ×2 (01:45→11:15)
[2024-11-26 03:42] LABS: Influenza A Not Detected (Not Detectd); Influenza B Not Detected (Not Detectd); RSV Not Detected (Not Detectd)
[2024-11-26 06:37] LABS: Amphetamine Screen,Urine Not Detected (NotDetected); Barbiturate Screen,Urine Not Detected (NotDetected); Benzodiazepines Screen,Urine Not Detected (NotDetected); Cocaine Screen,Urine Not Detected (NotDetected); Methadone Screen, Urine Not Detected (NotDetected); Opiate Screen,Urine Not Detected (NotDetected); Oxycodone Screen, Urine Not Detected (NotDetected); Phencyclidine Screen,Urine Not Detected (NotDetected); Tricyclic Antidepressant,Urine Not Detected (NotDetected); Urn Cannabinoid Scrn Not Detected (NotDetected)
[2024-11-26] MEDS ORDERED: FORMOTEROL FUMARATE 20 MCG/2 ML NEBU INHALATION PRN (10:20)
[2024-11-26] MEDS ORDERED: BUDESONIDE 1 MG/2 ML NEBU INHALATION PRN (10:20)
[2024-11-26] MEDS ORDERED: INSULIN LISPRO (HumaLOG) 100 UNIT/ML 10 mL VL SQ PRN (10:20)
[2024-11-26] MEDS ORDERED: IPRATROPIUM-ALBUTEROL 3 ML NEB INHALATION PRN (10:20)
[2024-11-26] MEDS: predniSONE 5 MG TAB PO SCH (11:15)
[2024-11-26] MEDS: POTASSIUM CHLORIDE ER 20 MEQ TAB.ER PO SCH (11:19)
[2024-11-26] MEDS: DILTIAZEM CD 180 MG CAP.ER.24H PO SCH (11:19)
[2024-11-26] MEDS: PANTOPRAZOLE 40 MG TABLET PO SCH (11:19)
[2024-11-26] MEDS: TAMSULOSIN 0.4 MG CAP.ER.24H PO SCH (11:19)
[2024-11-26] MEDS: amLODIPine 10 MG TAB PO SCH (11:19)
[2024-11-26] MEDS: METOPROLOL TARTRATE 25 MG TAB PO SCH (11:19)
[2024-11-26] MEDS: ATORVASTATIN 40 MG TAB PO SCH (11:19)
[2024-11-26] MEDS: FUROSEMIDE 80 MG TAB PO SCH (11:19)
[2024-11-26] MEDS: RIVAROXABAN 15 MG TAB PO SCH (11:19)
[2024-11-26] MEDS: CHOLECALCIFEROL 25 MCG (1000 IU) TABLET PO SCH (11:19)
[2024-11-26] MEDS: allopurinoL 100 MG TAB PO SCH (11:20)
[2024-11-26 11:30] LABS: Glucose,Whole Blood 191 mg/dL (70-110)
[2024-11-26] MEDS: INSULIN GLARGINE (LANTUS) 100 UNIT/ML SYR SQ SCH (11:32)
[2024-11-26 19:29] LABS: Glucose,Whole Blood 343 mg/dL (70-110)
[2024-11-26] MEDS: INSULIN LISPRO (HumaLOG) 100 UNIT/ML 10 mL VL SQ SCH (19:30)
[2024-11-26] MEDS: INSULIN LISPRO (HumaLOG) 100 UNIT/ML 10 mL VL SQ PRN (20:45)
[2024-11-26] MEDS: FUROSEMIDE 20 MG TAB PO SCH (20:45)
[2024-11-27 13:39] LABS: Glucose,Whole Blood 307 mg/dL (70-110)
[2024-11-27 13:39] LABS: Glucose,Whole Blood 262 mg/dL (70-110)
[2024-11-27 13:39] LABS: Glucose,Whole Blood 250 mg/dL (70-110)
[2024-11-27 13:51] VITALS: BP 124/65; PULSE 108; RESP 19; TEMP 98.1
== END 2024-11-27 13:53 | disposition other institution (70) ==
LOC: EC 00:10
DX: F23 Brief psychotic disorder (principal); Z94.0 Kidney transplant status; Z87.891 Personal history of nicotine dependence
CPT/HCPCS: 82075; 36415; 80053; 85025; 80306; 87636; 99285; J7507; J7518; J7512